=== PATIENT | female | born 1960 | race Caucasian/White ===

== ENCOUNTER 2016-07-20 14:29 | Outpatient (CLI) | payer MEDICAID | END 2016-07-20 14:30 | disposition home or self-care (01) | DX: E87.6 Hypokalemia (principal); R60.9 Edema, unspecified; D53.9 Nutritional anemia, unspecified ==

== ENCOUNTER 2017-05-13 00:58 | Emergency (ER) | payer MEDICAID ==
[2017-05-13 01:09] VITALS: BP 160/104
[2017-05-13] MEDS ORDERED: LIDOCAINE VISCOUS 2% 15 ML UDC MM ONE (01:35)
[2017-05-13] MEDS ORDERED: NEOMYCIN/POLYMYX/HC OTIC DROPS RIGHTEAR STA (01:37)
--- NOTE | 2017-05-13 01:48 | ED Physician Documentation ---
PD HPI HEENT - Stated complaint Stated Complaint: RT EAR PAIN - Chief complaint Chief Complaint: Heent - History obtained from History obtained from: Patient - History of Present Illness Timing - onset: How many days ago (3) Timing - duration: Days (3) Timing - details: Gradual onset, Still present Location: Right ear Improves: Medication Worsens: Swalllowing, Position, Other (touch of the ear) Associated symptoms: Headache. No: Fever, Congestion, Rhinorrhea, Trismus, Cough Similar symptoms before: Diagnosis (OE) Recently seen: Not recently seen - Additional information Additional information: 57-year-old female with a lifelong history of swimmer's ear usually has used a regimen of white vinegar and alcohol in her ears after showering. She has moved in here with her parents in [place] and she has stopped using her regimen about 6 weeks ago. Over the past 3 days she has developed symptoms consistent with what she has had previously with swimmer's ear she has tenderness to palpation of the year and pain. The pain has become untied intolerable tonight and she is come to the emergency department. Review of Systems Constitutional: denies: Fever Eyes: denies: Decreased vision Ears: reports: Ear pain. denies: Loss of hearing, Drainage/discharge, Tinnitus/ ringing Nose: denies: Rhinorrhea / runny nose, Congestion Throat: denies: Sore throat Respiratory: denies: Cough PD PAST MEDICAL HISTORY - Present Medications Home Medications: Ambulatory Orders Medication Instructions Recorded Confirmed Gabapentin 300 mg PO TID 05/13/17 05/13/17 Neomycin/Polymyx/Hc Otic Drops 4 drops RIGHTEAR TID #1 bottle 05/13/17 [Cortisporin Ear Susp] Venlafaxine HCl [Effexor Xr] 150 mg PO DAILY 05/13/17 05/13/17 - Allergies Allergies/Adverse Reactions: Allergies Allergy/AdvReac Type Severity Reaction Status Date / Time pregabalin [From Lyrica] Allergy Hives Verified 05/13/17 01:09 adhesive tape AdvReac Rash Verified 05/13/17 01:09 Sulfa (Sulfonamide AdvReac Itching Verified 05/13/17 01:09 Antibiotics) PD ED PE NORMAL - Vitals Vital signs reviewed: Yes (Tachycardic and hypertensive) - General General: Alert and oriented X 3, No acute distress, Well developed/nourished - HEENT HEENT: Atraumatic, PERRL, EOMI, Moist mucous membranes, Pharynx benign, Dentition benign, Other (There is minimal inflammation in the posterior portion of the right ear canal near the exit. There is no inflammation deeper in the canal and the TM is without evidence of inflammation. There is no debris in the canal. The left canal is clear.) - Neck Neck: Supple, no meningeal sign, No bony TTP - Cardiac Cardiac: RRR, No murmur - Respiratory Respiratory: No respiratory distress, Clear bilaterally - Abdomen Abdomen: Soft, Non tender - Derm Derm: Normal color, Warm and dry, No rash - Extremities Extremities: No deformity, No edema - Neuro Neuro: Alert and oriented X 3, No motor deficit, No sensory deficit, Normal speech Eye Opening: Spontaneous Motor: Obeys Commands Verbal: Oriented GCS Score: 15 - Psych Psych: Normal mood, Normal affect Results - Vitals Vitals: Vital Signs - 24 hr 05/13/17 01:04 Temperature 36.6 C Heart Rate 106 H Respiratory 20 Rate Blood Pressure 160/104 H O2 Saturation 99 Oxygen O2 Source Room air PD MEDICAL DECISION MAKING - ED course Complexity details: considered differential, d/w patient ED course: 57-year-old female with a history of otitis externa has developed symptoms she does have a small area that does appear inflamed and I was concerned that she may have referred pain from somewhere else and I used viscous lidocaine on a Q- tip over the inflamed area which resolved the patient's pain. She subsequently was administered Cortisporin otic. Departure - Departure Disposition: 01 Home, Self Care Clinical Impression: Otitis externa of right ear Qualifiers: Otitis externa type: swimmer's ear Chronicity: acute Qualified Code(s): H60.331 - Swimmer's ear, right ear Instructions: ED Otitis Externa Follow-Up: Bri Galvan ARNP [Primary Care Provider] - Prescriptions: Neomycin/Polymyx/Hc Otic Drops [Cortisporin Ear Susp] 4 drops RIGHTEAR TID #1 bottle Comments: Today in the Emergency Department your blood pressure was elevated. This can happen from the stress of the visit itself, from a current illness or circumstance or from uncontrolled hypertension. If you take blood pressure medications take your usual mediations, have your blood pressure re-checked in an appropriate setting and follow up any elevation with your primary care doctor.
[2017-05-13] MEDS ORDERED: NEOMYCIN/POLYMYX/HC OTIC DROPS ONE (02:02)
== END 2017-05-13 02:07 | disposition home or self-care (01) ==
LOC: ED 00:58
DX: H60.331 Swimmer's ear, right ear (principal); R03.0 Elevated blood-pressure reading, without diagnosis of hypertension
CPT/HCPCS: 99283; A9270

== ENCOUNTER 2018-03-06 22:38 | Emergency (ER) | payer MEDICAID ==
--- NOTE | 2018-03-06 23:57 | ED Physician Documentation ---
History of Present Illness - Stated complaint Stated Complaint: ETOH - Chief complaint Chief Complaint: General - History obtained from History obtained from: Patient - History of Present Illness Timing: Today Improved by: nothing Worsened by: no exacerbating factors - Additonal information Additional information: c/o alcohol withdrawal: tremulousness, anxiety. denies nausea. has been drinking vodka daily, last drink 2 PM, had DUI today. Review of Systems Constitutional: reports: Sweats. denies: Chills Cardiac: reports: Reviewed and negative Respiratory: reports: Reviewed and negative GI: reports: Reviewed and negative Neurologic: reports: Reviewed and negative Psychiatric: reports: Anxiety, Insomnia. 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 - Present Medications Home Medications: Ambulatory Orders Medication Instructions Recorded Confirmed Gabapentin 300 mg PO TID 05/13/17 05/13/17 Neomycin/Polymyx/Hc Otic Drops 4 drops RIGHTEAR TID #1 bottle 05/13/17 [Cortisporin Ear Susp] Venlafaxine HCl [Effexor Xr] 150 mg PO DAILY 05/13/17 05/13/17 LORazepam [Lorazepam] 1 - 2 mg PO Q6HR PRN #20 tablet 03/07/18 Ondansetron Odt [Zofran Odt] 4 mg TL Q6H PRN #14 tablet 03/07/18 - Allergies Allergies/Adverse Reactions: Allergies Allergy/AdvReac Type Severity Reaction Status Date / Time pregabalin [From Lyrica] Allergy Hives Verified 03/06/18 22:57 adhesive tape AdvReac Rash Verified 03/06/18 22:57 Sulfa (Sulfonamide AdvReac Itching Verified 03/06/18 22:57 Antibiotics) - Social History Does the pt smoke?: No Smoking Status: Never smoker ETOH Use: Liquor Does the pt have substance abuse?: No - POLST Patient has POLST: No PD ED PE NORMAL - Vitals Vital signs reviewed: Yes - General General: Alert and oriented X 3, Well developed/nourished, Other (mild generaliz ed tremulousness, mild anxiety) - HEENT HEENT: Moist mucous membranes - Neck Neck: Supple, no meningeal sign - Cardiac Cardiac: RRR, No murmur - Respiratory Respiratory: No respiratory distress, Clear bilaterally - Abdomen Abdomen: Soft, Non tender - Derm Derm: Normal color, Warm and dry - Neuro Neuro: Alert and oriented X 3 Results - Vitals Vitals: Vital Signs - 24 hr 03/07/18 01:28 Temperature 36.4 C L Heart Rate 94 Respiratory 18 Rate Blood Pressure 130/83 H O2 Saturation 98 Oxygen O2 Source Room air PD MEDICAL DECISION MAKING - ED course Complexity details: re-evaluated patient, considered differential, d/w patient ED course: I offered SW consult in AM to discuss options for detox, but patient declines this. She requests medication to help her with her withdrawal and rx for same, and she says she has information on who to contact to get into a detox/rehab facility. given IM ativan in ED and this had good effect: on reevaluation, no tremulousness, appears calm, and requests discharge home. she expresses what sounds like a sincere desire to seek professional help getting detox and rehab. I encouraged her to return to ED if worse in any way - Sepsis Event Vital Signs: Vital Signs - 24 hr 03/07/18 01:28 Temperature 36.4 C L Heart Rate 94 Respiratory 18 Rate Blood Pressure 130/83 H O2 Saturation 98 Oxygen O2 Source Room air Departure - Departure Disposition: 01 Home, Self Care Clinical Impression: Alcohol withdrawal Condition: Good Instructions: ED Withdrawal Alcohol Follow-Up: DARLEEN FRY [Primary Care Provider] - Prescriptions: LORazepam [Lorazepam] 1 - 2 mg PO Q6HR PRN #20 tablet PRN Reason: Alcohol Withdrawal Ondansetron Odt [Zofran Odt] 4 mg TL Q6H PRN #14 tablet PRN Reason: Nausea / Vomiting Discharge Date/Time: 03/07/18 01:30
[2018-03-07] MEDS ORDERED: LORazepam 2 MG/ML VIAL IM STA (00:29)
[2018-03-07] MEDS ORDERED: LORazepam 0.5 MG TABLET PO STA (01:20)
[2018-03-07 01:29] VITALS: BP 130/83
== END 2018-03-07 01:30 | disposition home or self-care (01) ==
LOC: ED 22:38
DX: F10.239 Alcohol dependence with withdrawal, unspecified (principal)
CPT/HCPCS: 96372; 99283; A9270; J2060

== ENCOUNTER 2018-03-10 18:28 | Outpatient (CLI) | payer MEDICAID | END 2018-03-10 18:29 | disposition critical access hospital (66) | LOC: EMS 18:28 | PROVIDERS: ATTEND Surgery | DX: S40.022A Contusion of left upper arm, initial encounter (principal); S40.021A Contusion of right upper arm, initial encounter; S80.12XA Contusion of left lower leg, initial encounter; S80.11XA Contusion of right lower leg, initial encounter; X58.XXXA Exposure to other specified factors, initial encounter | CPT/HCPCS: A0425; A0429; A0999 ==

== ENCOUNTER 2018-03-10 18:32 | Emergency (ER) | payer MEDICAID ==
[2018-03-10 18:58] VITALS: BP 139/87
[2018-03-10] MEDS ORDERED: cefTRIAXone 250 MG VIAL IM ONE (19:03)
[2018-03-10] MEDS ORDERED: LIDOCAINE 1% 2 ML VIAL SUBQ ONE (19:03)
[2018-03-10] MEDS ORDERED: AZITHROMYCIN 250 MG TABLET PO STA (19:03)
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
[2018-03-10 19:33] LABS: BASOPHILS % (AUTO) 0.9 %; EOSINOPHILS # (AUTO) 0.1 10^3/uL (0.0-0.7); EOSINOPHILS % (AUTO) 1.6 %; HGB - HEMOGLOBIN 13.7 g/dL (12.0-16.0); LYMPHOCYTES # (AUTO) 1.5 10^3/uL (1.5-3.5); LYMPHOCYTES % (AUTO) 45.9 %; MEAN CORPUSCULAR HEMOGLOBIN 35.4 pg (27.0-31.0); MEAN CORPUSCULAR HGB CONC 34.1 g/dL (32.0-36.0); MEAN CORPUSCULAR VOLUME 103.9 fL (81.0-99.0); MEAN PLATELET VOLUME 7.1 fL (7.9-10.8); MONOCYTES # (AUTO) 0.3 10^3/uL (0.0-1.0); MONOCYTES % (AUTO) 10.5 %; NEUTROPHILS # (AUTO) 1.4 10^3/uL (1.5-6.6); NEUTROPHILS % (AUTO) 41.1 %; PLT - PLATELET COUNT 144 10^3/uL (130-450); RED BLOOD COUNT 3.87 10^6/uL (4.20-5.40); RED CELL DISTRIBUTION WIDTH 16.2 % (12.0-15.0); WHITE BLOOD COUNT 3.3 x10^3/uL (4.8-10.8)
[2018-03-10 19:41] LABS: INR 0.9 (0.8-1.2); PT - PROTHROMBIN TIME 10.7 secs (9.9-12.6)
[2018-03-10 19:45] LABS: ALBUMIN 4.6 g/dL (3.2-5.5); ALBUMIN/GLOBULIN RATIO 1.5 (1.0-2.2); ALKALINE PHOSPHATASE 134 IU/L (42-121); ALT ALANINE AMINOTRANSFERASE 100 IU/L (10-60); AST ASPARTATE AMINOTRANSFERASE 119 IU/L (10-42); BILIRUBIN,TOTAL 0.9 mg/dL (0.2-1.0); BUN - BLOOD UREA NITROGEN 14 mg/dL (6-20); CALCIUM 9.2 mg/dL (8.5-10.3); CARBON DIOXIDE - CO2 31 mmol/L (21-32); CHLORIDE 108 mmol/L (101-111); CREATININE 0.5 mg/dL (0.4-1.0); GFR - MDRD 128 (>89); GLUCOSE 109 mg/dL (70-100); LIPASE 36 U/L (22-51); SALICYLATE < 6.0 mg/dL; SODIUM 148 mmol/L (135-145); TOTAL PROTEIN 7.7 g/dL (6.7-8.2)
[2018-03-10 19:55] LABS: ACETAMINOPHEN < 10 ug/mL (10-30)
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
[2018-03-11 13:27] LABS: HEPATITIS A IGM NON-REACTIVE (NON-REACTIVE); HEPATITIS B CORE ANTIBODY IGM NON-REACTIVE (NON-REACTIVE); HEPATITIS B SURFACE ANTIGEN NON-REACTIVE (NON-REACTIVE); HEPATITIS C ANTIBODY NON-REACTIVE (NON-REACTIVE)
[2018-03-11 14:22] LABS: HIV AG/AB 4TH GEN NON-REACTIVE (NON-REACTIVE)
== END 2018-03-11 00:03 | disposition home or self-care (01) ==
LOC: EDUNIT# → EDBD → ED 18:32
DX: F10.129 Alcohol abuse with intoxication, unspecified (principal); Y90.8 Blood alcohol level of 240 mg/100 ml or more; T76.21XA Adult sexual abuse, suspected, initial encounter; S40.022A Contusion of left upper arm, initial encounter; S40.021A Contusion of right upper arm, initial encounter; S80.12XA Contusion of left lower leg, initial encounter; S80.11XA Contusion of right lower leg, initial encounter; Y33.XXXA Other specified events, undetermined intent, initial encounter
CPT/HCPCS: 0133C; 36415; 70450; 72125; 80053; 80074; 80307; 80320; 80329; 83690; 85025; 85610; 87389; 96372; 99282; A9270

== ENCOUNTER 2018-03-20 14:56 | Emergency (ER) | payer MEDICAID ==
--- NOTE | 2018-03-20 16:11 | ED Physician Documentation ---
PD HPI MHE - Stated complaint Stated Complaint: MED REFILL - Chief complaint Chief Complaint: General - History obtained from History obtained from: Patient - History of Present Illness Primary symptom: Anxiety, Other (alcohol withdrawal - had some Ativan from prior Rx for couple of days, but out of med and still with withdrawal symptoms, now 3 days after stopping alcohol. Requesting more Rx. Has AA sponsor and has info regarding detox program.) Timing - onset: How many days ago (3) Contributing factors: Substance abuse - ETOH (and stopped drinking 3 days ago) Similar symptoms before: Diagnosis (withdrawal) Review of Systems Constitutional: denies: Fever, Chills, Myalgias Throat: denies: Sore throat Cardiac: denies: Chest pain / pressure Respiratory: denies: Dyspnea, Cough GI: reports: Nausea, Diarrhea. denies: Abdominal Pain, Vomiting Neurologic: reports: Generalized weakness. denies: Focal weakness, Numbness, Seizure, Confused, Altered mental status Psychiatric: reports: Anxiety. 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 - Present Medications Home Medications: Ambulatory Orders Medication Instructions Recorded Confirmed Gabapentin 300 mg PO TID 05/13/17 05/13/17 Neomycin/Polymyx/Hc Otic Drops 4 drops RIGHTEAR TID #1 bottle 05/13/17 [Cortisporin Ear Susp] Venlafaxine HCl [Effexor Xr] 150 mg PO DAILY 05/13/17 05/13/17 LORazepam [Lorazepam] 1 - 2 mg PO Q6HR PRN #20 tablet 03/07/18 Ondansetron Odt [Zofran Odt] 4 mg TL Q6H PRN #14 tablet 03/07/18 chlordiazePOXIDE [Librium] 25 mg PO TID PRN #25 capsule 03/20/18 cloNIDine [Catapres] 0.1 mg PO BID #14 tablet 03/20/18 - Allergies Allergies/Adverse Reactions: Allergies Allergy/AdvReac Type Severity Reaction Status Date / Time pregabalin [From Lyrica] Allergy Hives Verified 03/20/18 15:12 adhesive tape AdvReac Rash Verified 03/20/18 15:12 Sulfa (Sulfonamide AdvReac Itching Verified 03/20/18 15:12 Antibiotics) - Social History Does the pt smoke?: No Smoking Status: Never smoker Does the pt have substance abuse?: No - POLST Patient has POLST: No PD ED PE NORMAL - Vitals Vital signs reviewed: Yes - General General: Alert and oriented X 3, No acute distress, Well developed/nourished, Other (shakiness but pleasant) - HEENT HEENT: Moist mucous membranes, Pharynx benign - Neck Neck: Supple, no meningeal sign, No adenopathy - Cardiac Cardiac: RRR (tachycardic but minimal hypertension), No murmur - Respiratory Respiratory: Clear bilaterally - Abdomen Abdomen: Soft, Non tender - Derm Derm: Normal color, Warm and dry - Neuro Neuro: Alert and oriented X 3, No motor deficit, Normal speech, Other (some general shakiness and tremor with activity and at rest. ) Results - Vitals Vitals: Oxygen O2 Source Room air PD MEDICAL DECISION MAKING - ED course Complexity details: reviewed old records, considered differential (has shakiness from withdrawal. Had some Ativan but ran out and is still having some symptoms. ), d/w patient Departure - Departure Disposition: 01 Home, Self Care Clinical Impression: Alcohol withdrawal Qualifiers: Complication of substance-induced condition: uncomplicated Qualified Code(s): F10.230 - Alcohol dependence with withdrawal, uncomplicated Condition: Stable Record reviewed to determine appropriate education?: Yes Instructions: ED Withdrawal Alcohol Follow-Up: DARLEEN FRY [Primary Care Provider] - Prescriptions: chlordiazePOXIDE [Librium] 25 mg PO TID PRN #25 capsule PRN Reason: Anxiety cloNIDine [Catapres] 0.1 mg PO BID #14 tablet Comments: Use a Librium 3 times a day as needed for withdrawal symptoms. Clonidine twice daily for a week to help with the symptoms as well and less shakiness. Continue the Zofran if needed for nausea. Follow-up with your primary care you could also follow-up with [facility] services in [place] as they do help with substance abuse treatments as well. Discharge Date/Time: 03/20/18 16:52
[2018-03-20] MEDS ORDERED: LORazepam 0.5 MG TABLET PO STA (16:39)
[2018-03-20] MEDS ORDERED: cloNIDine 0.1 MG TABLET PO STA (16:39)
[2018-03-20 16:54] VITALS: BP 130/90
== END 2018-03-20 16:52 | disposition home or self-care (01) ==
LOC: ED 14:56
DX: F10.230 Alcohol dependence with withdrawal, uncomplicated (principal); E78.00 Pure hypercholesterolemia, unspecified
CPT/HCPCS: 99283; A9270

== ENCOUNTER 2018-04-07 04:28 | Outpatient (CLI) | payer MEDICAID | END 2018-04-07 04:29 | disposition critical access hospital (66) | LOC: EMS 04:28 | PROVIDERS: ATTEND Surgery | DX: R46.4 Slowness and poor responsiveness (principal); R47.81 Slurred speech; Z72.89 Other problems related to lifestyle | CPT/HCPCS: A0425; A0429; A0999 ==

== ENCOUNTER 2018-04-07 04:35 | Emergency (ER) | payer MEDICAID, OTHER ==
--- NOTE | 2018-04-07 04:48 | ED Physician Documentation ---
History of Present Illness - Stated complaint Stated Complaint: ETOH WITHDRAWL - Chief complaint Chief Complaint: General - History obtained from History obtained from: Patient - History of Present Illness Pain level now: 8 Improved by: nothing Worsened by: no exacerbating factors - Additonal information Additional information: BIBA. Patient says she has been drinking heavily including tonight, says she wants help quitting drinking. She also says she is worried about withdrawal and seizures. This is her fourth [facility] ED visit in past month, the third visit for alcohol- related c/o. She has been provided prescriptions for benzodiazepines on previous visits but says she is out of these at this time. 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 - Present Medications Home Medications: Ambulatory Orders Medication Instructions Recorded Confirmed Gabapentin 300 mg PO TID 05/13/17 05/13/17 Neomycin/Polymyx/Hc Otic Drops 4 drops RIGHTEAR TID #1 bottle 05/13/17 [Cortisporin Ear Susp] Venlafaxine HCl [Effexor Xr] 150 mg PO DAILY 05/13/17 05/13/17 LORazepam [Lorazepam] 1 - 2 mg PO Q6HR PRN #20 tablet 03/07/18 Ondansetron Odt [Zofran Odt] 4 mg TL Q6H PRN #14 tablet 03/07/18 chlordiazePOXIDE [Librium] 25 mg PO TID PRN #25 capsule 03/20/18 Ondansetron HCl [Zofran] 4 mg PO Q6H PRN #20 tablet 04/07/18 chlordiazePOXIDE [Librium] 25 - 50 mg PO Q8H PRN #30 capsule 04/07/18 cloNIDine [Catapres] 0.1 mg PO BID #14 tablet 04/07/18 - Allergies Allergies/Adverse Reactions: Allergies Allergy/AdvReac Type Severity Reaction Status Date / Time pregabalin [From Lyrica] Allergy Hives Verified 04/07/18 04:41 adhesive tape AdvReac Rash Verified 04/07/18 04:41 Sulfa (Sulfonamide AdvReac Itching Verified 04/07/18 04:41 Antibiotics) - Social History Does the pt smoke?: No Smoking Status: Never smoker Does the pt have substance abuse?: No - POLST Patient has POLST: No PD ED PE NORMAL - Vitals Vital signs reviewed: Yes - General General: Alert and oriented X 3, No acute distress, Well developed/nourished, Other (slurred but intelligible speech) - HEENT HEENT: Atraumatic, PERRL, EOMI, Moist mucous membranes - Cardiac Cardiac: RRR, No murmur - Respiratory Respiratory: No respiratory distress, Clear bilaterally - Abdomen Abdomen: Soft, Non tender - Derm Derm: Normal color, Warm and dry - Neuro Neuro: Alert and oriented X 3, insurance auditor 2-12 intact, No motor deficit, No sensory deficit Eye Opening: Spontaneous Motor: Obeys Commands Verbal: Oriented GCS Score: 15 Results - Vitals Vitals: Vital Signs - 24 hr 04/07/18 04/07/18 04:37 09:45 Temperature 36.0 C L Heart Rate 79 86 Respiratory 20 18 Rate Blood Pressure 133/90 H 136/90 H O2 Saturation 99 96 Oxygen O2 Source Room air - Labs Labs: Laboratory Tests 04/07/18 04/07/18 04:54 04:54 WBC 3.8 L RBC 3.64 L Hgb 12.9 Hct 38.1 MCV 104.7 H MCH 35.5 H MCHC 33.9 RDW 15.3 H Plt Count 220 MPV 6.7 L Neut # (Auto) 0.9 L Lymph # (Auto) 2.5 [place] # (Auto) 0.3 Eos # (Auto) 0.1 Baso # (Auto) 0.0 Absolute Nucleated RBC 0.00 Nucleated RBC % 0.0 Sodium 146 H Potassium 3.4 L Chloride 105 Carbon Dioxide 30 Anion Gap 11.0 BUN 14 Creatinine 0.5 Estimated GFR (MDRD) 128 Glucose 96 Calcium 8.9 Total Bilirubin 0.3 AST 35 ALT 26 Alkaline Phosphatase 119 Total Protein 6.8 Albumin 4.2 Globulin 2.6 Albumin/Globulin Ratio 1.6 Lipase 38 Ethyl Alcohol 401.2 PD MEDICAL DECISION MAKING - ED course Complexity details: reviewed old records, reviewed results, re-evaluated patient, considered differential, d/w patient ED course: I discussed my recommendations with patient, which is to perform blood tests and have a transition social worker meet with her later this morning to discuss options for rehab/detox. She initially was agreeable with this. However, she became increasingly upset with myself and other ED staff for what she expressed as a perception that "nothing is being done for me". I went over the plan to have a transition social worker meet with her when they come in this morning to discuss options for treatment with her, but she continued to tell me that she felt she wasn't being treated appropriately; she repeatedly requested medication to "help with the shaking". At no time did I see any tremulousness. At 6:30 AM, she had ambulated out of her room and into the hallway outside of the ED. I was informed she wanted to leave. I talked to her, at length, in the hallway; I again reviewed with her that I recommend a social work consult, but that I do not have cause to hold her here against her will. She eventually returned to ED and went back to her room. Care of patient turned over to oncoming ED physician (Dr. Muñiz) at 7 AM, pending SW evaluation Departure - Departure Disposition: 01 Home, Self Care Clinical Impression: Alcohol intoxication, Desire for detoxification Condition: Stable Instructions: ED Withdrawal Alcohol, ED Alcohol Intoxication Follow-Up: [facility] [Provider Group] DARLEEN FRY [Primary Care Provider] - Prescriptions: chlordiazePOXIDE [Librium] 25 - 50 mg PO Q8H PRN #30 capsule PRN Reason: Anxiety cloNIDine [Catapres] 0.1 mg PO BID #14 tablet Ondansetron HCl [Zofran] 4 mg PO Q6H PRN #20 tablet PRN Reason: Nausea / Vomiting Comments: No alcohol. Use meds for withdrawal as needed. Drink lots of fluids and regular diet. Follow up [facility] regarding counseling. Seek AA meetings and help. Return to ER if needed. Discharge Date/Time: 04/07/18 09:45
[2018-04-07 04:57] LABS: EOSINOPHILS # (AUTO) 0.1 10^3/uL (0.0-0.7); EOSINOPHILS % (AUTO) 2.5 %; HGB - HEMOGLOBIN 12.9 g/dL (12.0-16.0); LYMPHOCYTES # (AUTO) 2.5 10^3/uL (1.5-3.5); LYMPHOCYTES % (AUTO) 64.4 %; MEAN CORPUSCULAR HEMOGLOBIN 35.5 pg (27.0-31.0); MEAN CORPUSCULAR HGB CONC 33.9 g/dL (32.0-36.0); MEAN CORPUSCULAR VOLUME 104.7 fL (81.0-99.0); MEAN PLATELET VOLUME 6.7 fL (7.9-10.8); MONOCYTES # (AUTO) 0.3 10^3/uL (0.0-1.0); MONOCYTES % (AUTO) 7.8 %; NEUTROPHILS # (AUTO) 0.9 10^3/uL (1.5-6.6); NEUTROPHILS % (AUTO) 24.3 %; PLT - PLATELET COUNT 220 10^3/uL (130-450); RED BLOOD COUNT 3.64 10^6/uL (4.20-5.40); RED CELL DISTRIBUTION WIDTH 15.3 % (12.0-15.0); WHITE BLOOD COUNT 3.8 x10^3/uL (4.8-10.8)
[2018-04-07 05:10] LABS: ALBUMIN 4.2 g/dL (3.2-5.5); ALBUMIN/GLOBULIN RATIO 1.6 (1.0-2.2); BILIRUBIN,TOTAL 0.3 mg/dL (0.2-1.0); CALCIUM 8.9 mg/dL (8.5-10.3); CREATININE 0.5 mg/dL (0.4-1.0); TOTAL PROTEIN 6.8 g/dL (6.7-8.2)
[2018-04-07] MEDS ORDERED: NICOTINE 21 MG PATCH TOP STA (06:56)
[2018-04-07] MEDS ORDERED: cloNIDine 0.1 MG TABLET PO STA (09:10)
[2018-04-07] MEDS ORDERED: LORazepam 0.5 MG TABLET PO STA (09:10)
[2018-04-07 10:56] VITALS: BP 136/90
== END 2018-04-07 09:45 | disposition home or self-care (01) ==
LOC: EDUNIT# → ED 04:35
DX: F10.129 Alcohol abuse with intoxication, unspecified (principal)
CPT/HCPCS: 80053; 80320; 83690; 85025; 99283; A9270

== ENCOUNTER 2018-04-28 18:21 | Outpatient (CLI) | payer MEDICAID | END 2018-04-28 18:22 | disposition critical access hospital (66) | LOC: EMS 18:21 | PROVIDERS: ATTEND Surgery | DX: H53.9 Unspecified visual disturbance (principal); R51 Headache ==

== ENCOUNTER 2018-04-28 18:25 | Emergency (ER) | payer MEDICAID ==
--- NOTE | 2018-04-28 18:34 | ED Physician Documentation ---
PD HPI ALTERED MENTAL STATUS - Stated complaint Stated Complaint: AMS - Chief complaint Chief Complaint: Neuro - History obtained from History obtained from: Patient, EMS - History of Present Illness Timing - onset: Today (This is a 57-year-old woman with history of alcohol abuse. She is a vague historian and obviously intoxicated. She says she had her had a couple of days ago but does not know if she lost consciousness. She is evasive about questions about how much she drank today. She went to the grocery store to buy alcohol and they told her she could not buy alcohol because she was intoxicated. She proceeded to sit down and complain about visual deficits. 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 - Present Medications Home Medications: Ambulatory Orders Medication Instructions Recorded Confirmed Gabapentin 300 mg PO TID 05/13/17 05/13/17 Neomycin/Polymyx/Hc Otic Drops 4 drops RIGHTEAR TID #1 bottle 05/13/17 [Cortisporin Ear Susp] Venlafaxine HCl [Effexor Xr] 150 mg PO DAILY 05/13/17 05/13/17 LORazepam [Lorazepam] 1 - 2 mg PO Q6HR PRN #20 tablet 03/07/18 Ondansetron Odt [Zofran Odt] 4 mg TL Q6H PRN #14 tablet 03/07/18 chlordiazePOXIDE [Librium] 25 mg PO TID PRN #25 capsule 03/20/18 Ondansetron HCl [Zofran] 4 mg PO Q6H PRN #20 tablet 04/07/18 chlordiazePOXIDE [Librium] 25 - 50 mg PO Q8H PRN #30 capsule 04/07/18 cloNIDine [Catapres] 0.1 mg PO BID #14 tablet 04/07/18 - Allergies Allergies/Adverse Reactions: Allergies Allergy/AdvReac Type Severity Reaction Status Date / Time pregabalin [From Lyrica] Allergy Hives Verified 04/07/18 04:41 adhesive tape AdvReac Rash Verified 04/07/18 04:41 Sulfa (Sulfonamide AdvReac Itching Verified 04/07/18 04:41 Antibiotics) - Social History Does the pt smoke?: No Smoking Status: Never smoker Does the pt have substance abuse?: No - POLST Patient has POLST: No PD ED PE NORMAL - Vitals Vital signs reviewed: Yes - General General: Other (She is alert oriented to person and place but not time. She is an evasive historian.) - HEENT HEENT: Other (She has a lot of nystagmus, midpoint minimally reactive pupils bilaterally. Vision is grossly intact.) - Neck Neck: Supple, no meningeal sign, No bony TTP - Cardiac Cardiac: RRR, No murmur - Respiratory Respiratory: No respiratory distress, Clear bilaterally - Abdomen Abdomen: Normal bowel sounds, Soft, Non tender - Neuro Neuro: steel loader 2-12 intact Eye Opening: Spontaneous Motor: Obeys Commands Verbal: Confused GCS Score: 14 Results - Vitals Vitals: Vital Signs - 24 hr 04/28/18 18:28 Temperature 38.0 C H Heart Rate 88 Respiratory 18 Rate Blood Pressure 145/92 H O2 Saturation 97 Oxygen O2 Source Room air - Labs Labs: Laboratory Tests 04/28/18 04/28/18 04/28/18 18:30 18:30 18:30 WBC 3.4 L RBC 4.08 L Hgb 14.3 Hct 43.7 MCV 107.0 H MCH 35.0 H MCHC 32.7 RDW 14.5 Plt Count 191 MPV 7.2 L Neut # (Auto) Not Reportable Lymph # (Auto) Not Reportable [place] # (Auto) Not Reportable Eos # (Auto) Not Reportable Baso # (Auto) Not Reportable Absolute Nucleated RBC Not Reportable Total Counted 100 Band Neuts % (Manual) 0 Abnorm Lymph % (Manual) 0 Nucleated RBC % Not Reportable Neutrophils # (Manual) 0.9 L Lymphocytes # (Manual) 2.3 Monocytes # (Manual) 0.2 Eosinophils # (Manual) 0.0 Basophils # (Manual) 0.0 Differential Comment MANUAL DIFFERENTIAL Manual Slide Review Indicated WBC Morphology NORMAL APPEARANCE Platelet Estimate NORMAL (130-450,000) Platelet Morphology NORMAL APPEARANCE RBC Morph Micro Appear 2+ MACROCYTOSIS PT 11.6 INR 1.0 Sodium 147 H Potassium 3.6 Chloride 105 Carbon Dioxide 31 Anion Gap 11.0 BUN 10 Creatinine 0.6 Estimated GFR (MDRD) 104 Glucose 91 Calcium 8.5 Total Bilirubin 0.6 AST 124 H ALT 54 Alkaline Phosphatase 143 H Total Protein 7.1 Albumin 4.5 Globulin 2.6 Albumin/Globulin Ratio 1.7 Lipase 32 Ethyl Alcohol 378.1 - Rads (name of study) CT Head and Cspine Radiology: EMP read contemporaneously (NAD, Some prominent volume loss for age and degenerative changes in the C-spine without fracture) PD MEDICAL DECISION MAKING - ED course ED course: 57-year-old woman presents with a 2-day-old head injury and altered mental status likely from alcohol intoxication. CTs of head and C-spine showed no acute disease. Blood alcohol was significantly escalated. She expressed a desire initially to go to rehab. I discussed with her that she was welcome to stay in the emergency department until social work arrived in the morning, she did not want to do that. I discussed with her that I am unable to discharge her at this point because her blood alcohol is too high for safe discharge and she proceeded to ambulate out of the department. Departure - Departure Disposition: ED Elope Clinical Impression: Alcohol intoxication Qualifiers: Complication of substance-induced condition: uncomplicated Qualified Code(s): F10.920 - Alcohol use, unspecified with intoxication, uncomplicated Head injury Qualifiers: Encounter type: initial encounter Qualified Code(s): S09.90XA - Unspecified injury of head, initial encounter
[2018-04-28 18:42] LABS: BASOPHILS % (AUTO) 0.6 %; HGB - HEMOGLOBIN 14.3 g/dL (12.0-16.0); LYMPHOCYTES % (AUTO) 67.3 %; MEAN CORPUSCULAR HGB CONC 32.7 g/dL (32.0-36.0); MEAN PLATELET VOLUME 7.2 fL (7.9-10.8); NEUTROPHILS % (AUTO) 26.1 %; PLT - PLATELET COUNT 191 10^3/uL (130-450); RED BLOOD COUNT 4.08 10^6/uL (4.20-5.40); RED CELL DISTRIBUTION WIDTH 14.5 % (12.0-15.0); WHITE BLOOD COUNT 3.4 x10^3/uL (4.8-10.8)
[2018-04-28 18:50] LABS: ABNORMAL LYMPHS % (MANUAL) 0 %; BAND NEUTROPHILS % (MANUAL) 0 %
[2018-04-28 18:54] LABS: PT - PROTHROMBIN TIME 11.6 secs (9.9-12.6)
[2018-04-28 18:59] LABS: ALBUMIN 4.5 g/dL (3.2-5.5); ALBUMIN/GLOBULIN RATIO 1.7 (1.0-2.2); BILIRUBIN,TOTAL 0.6 mg/dL (0.2-1.0); CALCIUM 8.5 mg/dL (8.5-10.3); CREATININE 0.6 mg/dL (0.4-1.0); TOTAL PROTEIN 7.1 g/dL (6.7-8.2)
[2018-04-28 19:07] LABS: DIFFERENTIAL COMMENT MANUAL DIFFERENTIAL; LYMPHOCYTES # (MANUAL) 2.3 10^3/uL (1.5-3.5); LYMPHOCYTES % (MANUAL) 69 %; MONOCYTES # (MANUAL) 0.2 10^3/uL (0.0-1.0); NEUTROPHILS # (MANUAL) 0.9 10^3/uL (1.5-6.6); NEUTROPHILS % (MANUAL) 25 %; PLATELET ESTIMATE, MANUAL NORMAL (130-450,000) (NORMAL); PLATELET MORPHOLOGY NORMAL APPEARANCE (NORMAL); RBC MORPHOLOGY (MULTIPLE) 2+ MACROCYTOSIS (NORMAL)
--- NOTE | 2018-04-28 19:17 | CT Report ---
Reason: head inj Procedure Date: 04/28/2018 Accession Number: [id number] / [id number] Procedure: CT - Head W/O CPT Code: FULL RESULT: EXAM: CT HEAD EXAM DATE: 04/28/2018 06:58 PM. CLINICAL HISTORY: Head inj. Patient fell 2 days ago with back of head pain and nausea since. COMPARISON: CERVICAL SPINE W/O 03/10/2018 7:44 PM HEAD W/O 03/10/2018 7:44 PM. TECHNIQUE: Multiaxial CT images were obtained from the foramen magnum to the vertex. Reformats: Sagittal and coronal. IV contrast: None. In accordance with CT protocol optimization, one or more of the following dose reduction techniques were utilized for this exam: automated exposure control, adjustment of mA and/or KV based on patient size, or use of iterative reconstructive technique. FINDINGS: Parenchyma: No intraparenchymal hemorrhage. No evidence of mass, midline shift, or CT findings of infarction. Herrera-white differentiation is distinct. Diffuse cortical volume loss. Extraaxial Spaces: Normal for age. No subdural or epidural collections identified. Ventricles: Normal in size and position. Sinuses and Orbits: Imaged paranasal sinuses, orbits, and mastoids show no significant abnormality. Bones: No evidence of fracture or calvarial defect. Other: None. IMPRESSION: 1. No evidence for intracranial hemorrhage or depressed calvarial fracture. 2. Diffuse cortical volume loss is greater than typical for patient's age. RADIA
--- NOTE | 2018-04-28 19:22 | CT Report ---
Reason: head inj Procedure Date: 04/28/2018 Accession Number: [id number] / [id number] Procedure: CT - Cervical Spine W/O CPT Code: FULL RESULT: EXAM: CT CERVICAL SPINE WITHOUT CONTRAST DATE: 04/28/2018 06:46 PM. HISTORY: Head injury. Fell 2 days ago with back of head pain. COMPARISONS: CERVICAL SPINE W/O 03/10/2018 7:44 PM. TECHNIQUE: Thin-section axial images were acquired of the cervical spine without contrast. Post-processing: Coronal and sagittal reformats. Other: None. In accordance with CT protocol optimization, one or more of the following dose reduction techniques were utilized for this exam: automated exposure control, adjustment of mA and/or KV based on patient size, or use of iterative reconstructive technique. FINDINGS: Alignment: Mild convex left cervical scoliosis. Mild grade 1 anterolisthesis of C7 on T1 vertebral body. Bones: No fracture or bone lesion. Interspace Levels/Facets: C1-C2: Unremarkable. C2-C3: Unremarkable. C3-C4: Mild bilateral uncovertebral joint and right facet hypertrophy with mild neuroforaminal narrowing. C4-C5: Severe left and moderate right-sided neural foraminal narrowing due to uncovertebral joint hypertrophy. C5-C6: Severe right and mild left neural foraminal narrowing from uncovertebral joint hypertrophy. C6-C7: Unremarkable. C7-T1: Bilateral facet hypertrophy. Musculature: Normal. No fatty atrophy. Other: The paravertebral and prevertebral soft tissues are unremarkable. The lung apices are clear. IMPRESSION: 1. Prominent cervical spine degenerative changes. 2. No fractures. RADIA
[2018-04-28 20:12] VITALS: BP 138/104
== END 2018-04-28 22:10 | disposition left against medical advice (07) ==
LOC: EDUNIT# → ED 18:25
DX: F10.920 Alcohol use, unspecified with intoxication, uncomplicated (principal); S09.90XA Unspecified injury of head, initial encounter; W19.XXXA Unspecified fall, initial encounter; Z53.20 Procedure and treatment not carried out because of patient's decision for unspecified reasons
CPT/HCPCS: 36415; 70450; 72125; 80053; 80320; 83690; 85025; 85610; 99283; 99284

== ENCOUNTER 2018-06-20 14:04 | Outpatient (CLI) | payer MEDICAID | END 2018-06-20 14:05 | disposition EMS.NT | LOC: EMS 14:04 | PROVIDERS: ATTEND Surgery | DX: Z03.89 Encounter for observation for other suspected diseases and conditions ruled out (principal) ==

== ENCOUNTER 2018-07-06 15:58 | Outpatient (CLI) | payer MEDICAID | END 2018-07-06 15:59 | disposition critical access hospital (66) | LOC: EMS 15:58 | PROVIDERS: ATTEND Surgery | DX: R53.83 Other fatigue (principal) | CPT/HCPCS: A0425; A0429 ==

== ENCOUNTER 2018-07-06 16:03 | Emergency (ER) | payer MEDICAID ==
[2018-07-06] MEDS ORDERED: THIAMINE 100 MG TABLET PO STA (16:36)
--- NOTE | 2018-07-06 16:36 | ED Physician Documentation ---
History of Present Illness - Stated complaint Stated Complaint: ALOC - Chief complaint Chief Complaint: MHE - History obtained from History obtained from: Patient, EMS - History of Present Illness Timing: Unknown (This is a 58-year-old woman who is a well-known alcoholic. Review of the chart shows the last 3 blood alcohol is been quite high. She called the ambulance today for unclear reasons. She tells me she is here because she is having problems with the right ear. She says she is been asleep for 3 days. She is worried that she might have cancer. She also hit her head at some point, I will him backwards and hit her head on the porch when the lights were out. 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 - Present Medications Home Medications: Ambulatory Orders Medication Instructions Recorded Confirmed Neomycin/Polymyx/Hc Otic Drops 4 drops RIGHTEAR TID #1 bottle 05/13/17 [Cortisporin Ear Susp] RX: Gabapentin 300 mg PO TID 05/13/17 05/13/17 Venlafaxine HCl [Effexor Xr] 150 mg PO DAILY 05/13/17 05/13/17 RX: LORazepam [Lorazepam] 1 - 2 mg PO Q6HR PRN #20 tablet 03/07/18 RX: Ondansetron Odt [Zofran Odt] 4 mg TL Q6H PRN #14 tablet 03/07/18 chlordiazePOXIDE [Librium] 25 mg PO TID PRN #25 capsule 03/20/18 Ondansetron HCl [Zofran] 4 mg PO Q6H PRN #20 tablet 04/07/18 RX: cloNIDine [Catapres] 0.1 mg PO BID #14 tablet 04/07/18 chlordiazePOXIDE [Librium] 25 - 50 mg PO Q8H PRN #30 capsule 04/07/18 - Allergies Allergies/Adverse Reactions: Allergies Allergy/AdvReac Type Severity Reaction Status Date / Time pregabalin [From Lyrica] Allergy Hives Verified 07/06/18 16:18 adhesive tape AdvReac Rash Verified 07/06/18 16:18 Sulfa (Sulfonamide AdvReac Itching Verified 07/06/18 16:18 Antibiotics) - Social History Does the pt smoke?: No Smoking Status: Never smoker Does the pt drink ETOH?: Yes Does the pt have substance abuse?: No - Immunizations Immunizations are current?: Yes - POLST Patient has POLST: No PD ED PE NORMAL - Vitals Vital signs reviewed: Yes - General General: Other (Slow slurred speech, smells of alcohol) - HEENT HEENT: Other (Sluggish dilated pupils, symmetric with lots of nystagmus) - Neck Neck: Supple, no meningeal sign, No bony TTP - Cardiac Cardiac: RRR, No murmur - Respiratory Respiratory: No respiratory distress, Clear bilaterally - Abdomen Abdomen: Normal bowel sounds, Soft, Non tender - Back Back: No CVA TTP, No spinal TTP - Derm Derm: Normal color, Warm and dry - Extremities Extremities: Other (Bruises all over but no tenderness or limited range of motion of any remedy.) - Neuro Neuro: 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 specialist 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 Eye Opening: Spontaneous Motor: Obeys Commands Verbal: Confused GCS Score: 14 - Psych Psych: Normal mood, Normal affect Results - Vitals Vitals: Vital Signs - 24 hr 07/06/18 07/06/18 16:04 18:17 Temperature 36.8 C 36.6 C Heart Rate 80 79 Respiratory 16 16 Rate Blood Pressure 145/90 H 134/81 H O2 Saturation 100 98 Oxygen O2 Source Room air - Labs Labs: Laboratory Tests 07/06/18 07/06/18 16:45 16:45 WBC 4.1 L RBC 3.73 L Hgb 13.1 Hct 39.1 MCV 105.0 H MCH 35.2 H MCHC 33.5 RDW 14.7 Plt Count 203 MPV 7.1 L Neut # (Auto) Not Reportable Lymph # (Auto) Not Reportable [place] # (Auto) Not Reportable Eos # (Auto) Not Reportable Baso # (Auto) Not Reportable Absolute Nucleated RBC Not Reportable Total Counted 100 Band Neuts % (Manual) 0 Abnorm Lymph % (Manual) 0 Nucleated RBC % Not Reportable Neutrophils # (Manual) 1.2 L Lymphocytes # (Manual) 2.7 Monocytes # (Manual) 0.1 Eosinophils # (Manual) 0.0 Basophils # (Manual) 0.0 Differential Comment MANUAL DIFFERENTIAL Manual Slide Review Indicated WBC Morphology NORMAL APPEARANCE Platelet Estimate NORMAL (130-450,000) Platelet Morphology NORMAL APPEARANCE RBC Morph Micro Appear 1+ MACROCYTOSIS Sodium 150 H Potassium 3.7 Chloride 108 Carbon Dioxide 30 Anion Gap 12.0 BUN 17 Creatinine 0.5 Estimated GFR (MDRD) 128 Glucose 80 Calcium 9.2 Total Bilirubin 0.4 AST 25 ALT 16 Alkaline Phosphatase 81 Total Creatine Kinase 88 Total Protein 7.0 Albumin 4.1 Globulin 2.9 Albumin/Globulin Ratio 1.4 Lipase 39 - Rads (name of study) CT Head and Cspine Radiology: EMP read contemporaneously (NAD) PD MEDICAL DECISION MAKING - ED course ED course: This is a 58-year-old woman with history of alcoholism who presents with alcohol intoxication. She is a vague history of head injury may be 3 days ago and because of the alcohol intoxication a CT of the head and C-spine were done witho ut relevant findings. She was allowed to sober up for a while in the emergency department and requested to leave. She was really too intoxicated to discharge still but eventually ambulated out of the emergency dept without being formally discharged. Departure - Departure Disposition: ED [facility]ope Clinical Impression: Alcohol intoxication, Head injury Condition: Stable Discharge Date/Time: 07/06/18 18:43
[2018-07-06 16:54] LABS: BASOPHILS % (AUTO) 0.7 %; EOSINOPHILS % (AUTO) 0.8 %; HGB - HEMOGLOBIN 13.1 g/dL (12.0-16.0); LYMPHOCYTES % (AUTO) 63.6 %; MEAN CORPUSCULAR HEMOGLOBIN 35.2 pg (27.0-31.0); MEAN CORPUSCULAR HGB CONC 33.5 g/dL (32.0-36.0); MEAN PLATELET VOLUME 7.1 fL (7.9-10.8); MONOCYTES % (AUTO) 4.6 %; NEUTROPHILS % (AUTO) 30.3 %; PLT - PLATELET COUNT 203 10^3/uL (130-450); RED BLOOD COUNT 3.73 10^6/uL (4.20-5.40); RED CELL DISTRIBUTION WIDTH 14.7 % (12.0-15.0); WHITE BLOOD COUNT 4.1 x10^3/uL (4.8-10.8)
[2018-07-06 16:57] LABS: ABNORMAL LYMPHS % (MANUAL) 0 %; BAND NEUTROPHILS % (MANUAL) 0 %
[2018-07-06 17:07] LABS: BASOPHILS % (MANUAL) 1 %; LYMPHOCYTES # (MANUAL) 2.7 10^3/uL (1.5-3.5); LYMPHOCYTES % (MANUAL) 66 %; MONOCYTES # (MANUAL) 0.1 10^3/uL (0.0-1.0); NEUTROPHILS # (MANUAL) 1.2 10^3/uL (1.5-6.6); NEUTROPHILS % (MANUAL) 30 %
[2018-07-06 17:08] LABS: DIFFERENTIAL COMMENT MANUAL DIFFERENTIAL; PLATELET ESTIMATE, MANUAL NORMAL (130-450,000) (NORMAL); PLATELET MORPHOLOGY NORMAL APPEARANCE (NORMAL); RBC MORPHOLOGY (MULTIPLE) 1+ MACROCYTOSIS (NORMAL)
[2018-07-06 17:24] LABS: ALBUMIN 4.1 g/dL (3.2-5.5); ALBUMIN/GLOBULIN RATIO 1.4 (1.0-2.2); BILIRUBIN,TOTAL 0.4 mg/dL (0.2-1.0); CALCIUM 9.2 mg/dL (8.5-10.3); CREATININE 0.5 mg/dL (0.4-1.0)
--- NOTE | 2018-07-06 17:26 | CT Report ---
Reason: head inj Procedure Date: 07/06/2018 Accession Number: [id number] / [id number] Procedure: CT - Head W/O CPT Code: FULL RESULT: EXAM: CT HEAD EXAM DATE: 07/06/2018 05:01 PM. CLINICAL HISTORY: Head inj. COMPARISON: None. TECHNIQUE: Multiaxial CT images were obtained from the foramen magnum to the vertex. Reformats: Sagittal and coronal. IV contrast: None. In accordance with CT protocol optimization, one or more of the following dose reduction techniques were utilized for this exam: automated exposure control, adjustment of mA and/or KV based on patient size, or use of iterative reconstructive technique. FINDINGS: Parenchyma: No intraparenchymal hemorrhage. No evidence of mass, midline shift, or CT findings of infarction. Herrera-white differentiation is distinct. Extraaxial Spaces: Normal for age. No subdural or epidural collections identified. Ventricles: Normal in size and position. Sinuses and Orbits: Imaged paranasal sinuses, orbits, and mastoids show no significant abnormality. Bones: No evidence of fracture or calvarial defect. Other: Soft tissue hematoma overlying the right of midline frontal skull with no underlying fracture. IMPRESSION: 1. No acute intracranial abnormality. 2. Soft tissue hematoma overlying the right frontal skull with no underlying fracture. RADIA
--- NOTE | 2018-07-06 17:30 | CT Report ---
Reason: head inj Procedure Date: 07/06/2018 Accession Number: [id number] / [id number] Procedure: CT - Cervical Spine W/O CPT Code: FULL RESULT: EXAM: CT CERVICAL SPINE WITHOUT CONTRAST DATE: 07/06/2018 05:01 PM. HISTORY: Head inj. COMPARISONS: None. TECHNIQUE: Thin-section axial images were acquired of the cervical spine without contrast. Post-processing: Coronal and sagittal reformats. Other: None. In accordance with CT protocol optimization, one or more of the following dose reduction techniques were utilized for this exam: automated exposure control, adjustment of mA and/or KV based on patient size, or use of iterative reconstructive technique. FINDINGS: Alignment: No scoliosis or spondylolisthesis. Bones: No fracture or bone lesion. Interspace Levels/Facets: C1-C2: Unremarkable. C2-C3: Unremarkable. C3-C4: Unremarkable. C4-C5: Moderate degenerative disk disease with severe left neural foraminal narrowing. C5-C6: Uncal hypertrophy with severe right neural foraminal narrowing. C6-C7: Unremarkable. C7-T1: Unremarkable. Musculature: Normal. No fatty atrophy. Other: The paravertebral and prevertebral soft tissues are unremarkable. The lung apices are clear. IMPRESSION: 1. No acute fracture or listhesis. 2. Degenerative changes, as above. RADIA
[2018-07-06 18:22] VITALS: BP 134/81
== END 2018-07-06 18:43 | disposition left against medical advice (07) ==
LOC: EDUNIT# → ED 16:03
DX: F10.220 Alcohol dependence with intoxication, uncomplicated (principal); S09.90XA Unspecified injury of head, initial encounter; W22.09XA Striking against other stationary object, initial encounter; E78.00 Pure hypercholesterolemia, unspecified
CPT/HCPCS: 36415; 70450; 72125; 80053; 82550; 83690; 85025; 99282; 99284; A9270

== ENCOUNTER 2018-07-23 14:19 | Outpatient (CLI) | payer MEDICAID ==
--- NOTE | 2018-07-23 16:05 | XRAY Report ---
Reason: PAIN, UNSPECIFIED Procedure Date: 07/23/2018 Accession Number: [id number] / [id number] Procedure: XR - Hand 3 View LT CPT Code: FULL RESULT: EXAM: LEFT HAND RADIOGRAPHY EXAM DATE: 07/23/2018 03:07 PM. CLINICAL HISTORY: PAIN, UNSPECIFIED. COMPARISON: None. TECHNIQUE: 3 views. FINDINGS: Bones: No fractures or bone lesions. Joints: Minimal early degenerative change of the interphalangeal joints of the fingers and thumb. No subluxations. Soft Tissues: No soft tissue swelling. IMPRESSION: Minimal early left hand degenerative change without superimposed acute findings. RADIA
--- NOTE | 2018-07-23 16:30 | XRAY Report ---
Reason: PAIN, UNSPECIFIED Procedure Date: 07/23/2018 Accession Number: [id number] / [id number] Procedure: XR - Foot 3 View LT CPT Code: FULL RESULT: EXAM: LEFT FOOT RADIOGRAPHY EXAM DATE: 07/23/2018 03:07 PM. CLINICAL HISTORY: PAIN, UNSPECIFIED. History of remote fracture. COMPARISON: None. TECHNIQUE: 3 views. FINDINGS: Bones: No acute fractures or bone lesions. Joints: The interphalangeal joints of the second through fifth toes are not well seen. Minor degenerative change first metatarsal phalangeal articulation. Soft Tissues: No soft tissue swelling or radiopaque foreign body.. IMPRESSION: No acute findings left foot radiography. Minor degenerative change present. Interphalangeal joints of the toes not well seen. RADIA
--- NOTE | 2018-07-23 16:32 | XRAY Report ---
Reason: PAIN, UNSPECIFIED Procedure Date: 07/23/2018 Accession Number: [id number] / [id number] Procedure: XR - Hand 3 View RT CPT Code: FULL RESULT: EXAM: RIGHT HAND RADIOGRAPHY EXAM DATE: 07/23/2018 03:07 PM. CLINICAL HISTORY: PAIN, UNSPECIFIED. COMPARISON: None. TECHNIQUE: 3 views. FINDINGS: Bones: No fractures or bone lesions. Small calcification along the dorsal aspect of the second DIP joint may be the residual of old trauma. Joints: No subluxations. Scattered minor interphalangeal joint degenerative change Soft Tissues: No soft tissue swelling. IMPRESSION: Minor right hand degenerative change without superimposed acute findings. RADIA
== END 2018-07-23 14:20 | disposition home or self-care (01) ==
LOC: DI 14:19
PROVIDERS: ATTEND Family Medicine
DX: M19.072 Primary osteoarthritis, left ankle and foot (principal); M19.042 Primary osteoarthritis, left hand; M19.041 Primary osteoarthritis, right hand

== ENCOUNTER 2018-07-26 17:03 | Outpatient (CLI) | payer MEDICAID | END 2018-07-26 17:04 | disposition critical access hospital (66) | LOC: EMS 17:03 | PROVIDERS: ATTEND Surgery | DX: F10.929 Alcohol use, unspecified with intoxication, unspecified (principal); M79.89 Other specified soft tissue disorders | CPT/HCPCS: A0425; A0429 ==

== ENCOUNTER 2018-07-26 17:07 | Emergency (ER) | payer MEDICAID ==
[2018-07-26] MEDS ORDERED: FOLIC ACID INJ 1 MG, THIAMINE INJ 100 MG, MAGNESIUM SULFATE 2 GM, MULTIVITAMIN 10 ML in... IV STA ×5 (17:20)
[2018-07-26 17:40] LABS: BASOPHILS % (AUTO) 0.6 %; EOSINOPHILS % (AUTO) 0.3 %; HGB - HEMOGLOBIN 14.3 g/dL (12.0-16.0); LYMPHOCYTES # (AUTO) 2.5 10^3/uL (1.5-3.5); LYMPHOCYTES % (AUTO) 58.3 %; MEAN CORPUSCULAR HEMOGLOBIN 35.1 pg (27.0-31.0); MEAN CORPUSCULAR HGB CONC 33.9 g/dL (32.0-36.0); MEAN CORPUSCULAR VOLUME 103.6 fL (81.0-99.0); MEAN PLATELET VOLUME 7.2 fL (7.9-10.8); MONOCYTES # (AUTO) 0.2 10^3/uL (0.0-1.0); MONOCYTES % (AUTO) 3.7 %; NEUTROPHILS # (AUTO) 1.6 10^3/uL (1.5-6.6); NEUTROPHILS % (AUTO) 37.1 %; PLT - PLATELET COUNT 191 10^3/uL (130-450); RED BLOOD COUNT 4.08 10^6/uL (4.20-5.40); RED CELL DISTRIBUTION WIDTH 14.8 % (12.0-15.0); WHITE BLOOD COUNT 4.3 x10^3/uL (4.8-10.8)
[2018-07-26] MEDS ORDERED: THIAMINE 100 MG/1 ML 2 ML MDV ONE (17:46)
[2018-07-26 17:53] LABS: ALBUMIN 4.2 g/dL (3.2-5.5); ALBUMIN/GLOBULIN RATIO 1.4 (1.0-2.2); BILIRUBIN,TOTAL 0.5 mg/dL (0.2-1.0); CALCIUM 8.4 mg/dL (8.5-10.3); CREATININE 0.5 mg/dL (0.4-1.0); TOTAL PROTEIN 7.2 g/dL (6.7-8.2)
[2018-07-26 17:58] LABS: PT - PROTHROMBIN TIME 10.9 secs (9.9-12.6)
[2018-07-26] MEDS ORDERED: FAMOTIDINE 20 MG/2 ML VIAL IVP STA (18:21)
[2018-07-26] MEDS ORDERED: POTASSIUM BICARB 25 MEQ TABLET PO STA (18:21)
[2018-07-26 19:29] LABS: BILIRUBIN,URINE NEGATIVE (NEGATIVE); GLUCOSE, URINE (UA) NEGATIVE (NEGATIVE); KETONES,URINE (UA) TRACE mg/dL (NEGATIVE); LEUKOCYTE ESTERASE, URINE NEGATIVE (NEGATIVE); NITRITE,URINE NEGATIVE (NEGATIVE); OCCULT BLOOD,URINE TRACE-INTA (NEGATIVE); PROTEIN,URINE NEGATIVE (NEGATIVE); UROBILINOGEN,URINE 0.2 (NORMAL) E.U./dL (NORMAL)
[2018-07-26 19:50] LABS: CLARITY,URINE CLEAR (CLEAR)
[2018-07-26 19:52] VITALS: BP 151/96
[2018-07-26] MEDS ORDERED: cloNIDine 0.1 MG TABLET PO STA (20:03)
[2018-07-26] MEDS ORDERED: LORazepam 0.5 MG TABLET PO STA ×2 (20:03→20:04)
--- NOTE | 2018-07-26 20:31 | ED Physician Documentation ---
PD HPI ALTERED MENTAL STATUS - Stated complaint Stated Complaint: ETOH - Chief complaint Chief Complaint: General - History obtained from History obtained from: Patient - History of Present Illness Timing - onset: How many days ago (3) Timing - duration: Days (3) Timing - details: Abrupt onset (she had been sober for over a month and was trying to get to alcohol rehab. Had been no beds available this past week. Working with Intake at [facility] in [place]. She got stressed and drank heavily the past 3 days. Wants to stop today and had not drank this afternoon (last drink was this morning). Concerned about withdrawal and also asking about detox.) Quality / character: Other (anxious and upset) Associated symptoms: No: Fever, Headache, Dyspnea, Cough, NVD Contributing factors: Intoxicated Basline status: Alert and oriented X 3, Ambulatory Similar symptoms before: Diagnosis (alcoholism with withdrawal on stopping in the past. No history of withdrawal seizures. No DTs. 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: section - Present Medications Home Medications: Ambulatory Orders Medication Instructions Recorded Confirmed Gabapentin 300 mg PO TID 05/13/17 05/13/17 Neomycin/Polymyx/Hc Otic Drops 4 drops RIGHTEAR TID #1 bottle 05/13/17 [Cortisporin Ear Susp] Venlafaxine HCl [Effexor Xr] 150 mg PO DAILY 05/13/17 05/13/17 LORazepam [Lorazepam] 1 - 2 mg PO Q6HR PRN #20 tablet 03/07/18 Ondansetron Odt [Zofran Odt] 4 mg TL Q6H PRN #14 tablet 03/07/18 chlordiazePOXIDE [Librium] 25 mg PO TID PRN #25 capsule 03/20/18 Ondansetron HCl [Zofran] 4 mg PO Q6H PRN #20 tablet 04/07/18 Ondansetron Odt [Zofran] 4 mg TL Q6H PRN #10 tablet 07/26/18 chlordiazePOXIDE [Librium] 25 - 50 mg PO Q8H PRN #30 capsule 07/26/18 cloNIDine [Catapres] 0.1 mg PO BID #14 tablet 07/26/18 - Allergies Allergies/Adverse Reactions: Allergies Allergy/AdvReac Type Severity Reaction Status Date / Time pregabalin [From Lyrica] Allergy Hives Verified 07/26/18 17:17 adhesive tape AdvReac Rash Verified 07/26/18 17:17 Sulfa (Sulfonamide AdvReac Itching Verified 07/26/18 17:17 Antibiotics) - Living Situation Living Situation: reports: Alone Living Arrangement: reports: At home - Social History Does the pt smoke?: No Smoking Status: Never smoker Does the pt drink ETOH?: Yes Does the pt have substance abuse?: No - Immunizations Immunizations are current?: Yes - POLST Patient has POLST: No PD ED PE NORMAL - Vitals Vital signs reviewed: Yes - General General: Alert and oriented X 3, No acute distress, Well developed/nourished, Other (emotional and upset at herself for drinking. Not suicidal. ) - HEENT HEENT: Moist mucous membranes, Pharynx benign - Neck Neck: Supple, no meningeal sign, No adenopathy - Cardiac Cardiac: RRR, No murmur - Respiratory Respiratory: Clear bilaterally - Abdomen Abdomen: Soft, Non tender - Derm Derm: Normal color, Warm and dry - Extremities Extremities: No tenderness to palpate, Normal ROM s pain, No edema, No calf tenderness / cord - Neuro Neuro: Alert and oriented X 3, No motor deficit, Normal speech (with just slight slurring) Results - Vitals Vitals: Oxygen O2 Source Room air - Labs Labs: Laboratory Tests 07/26/18 07/26/18 07/26/18 17:25 17:25 17:25 WBC 4.3 L RBC 4.08 L Hgb 14.3 Hct 42.3 MCV 103.6 H MCH 35.1 H MCHC 33.9 RDW 14.8 Plt Count 191 MPV 7.2 L Neut # (Auto) 1.6 Lymph # (Auto) 2.5 Parker # (Auto) 0.2 Eos # (Auto) 0.0 Baso # (Auto) 0.0 Absolute Nucleated RBC 0.00 Nucleated RBC % 0.0 PT 10.9 INR 1.0 Sodium 142 Potassium 3.2 L Chloride 103 Carbon Dioxide 26 Anion Gap 13.0 BUN 12 Creatinine 0.5 Estimated GFR (MDRD) 128 Glucose 151 H Calcium 8.4 L Total Bilirubin 0.5 AST 38 ALT 17 Alkaline Phosphatase 99 Ammonia Troponin I Total Protein 7.2 Albumin 4.2 Globulin 3.0 Albumin/Globulin Ratio 1.4 Lipase 26 Urine Color Urine Clarity Urine pH Ur Specific Cisne Urine Protein Urine Glucose (UA) Urine Ketones Urine Occult Blood Urine Nitrite Urine Bilirubin Urine Urobilinogen Ur Leukocyte Esterase Ur Microscopic Review Urine Culture Comments Ethyl Alcohol 248.4 Serum Ketones 07/26/18 07/26/18 07/26/18 17:25 17:25 18:00 WBC RBC Hgb Hct MCV MCH MCHC RDW Plt Count MPV Neut # (Auto) Lymph # (Auto) Parker # (Auto) Eos # (Auto) Baso # (Auto) Absolute Nucleated RBC Nucleated RBC % PT INR Sodium Potassium Chloride Carbon Dioxide Anion Gap BUN Creatinine Estimated GFR (MDRD) Glucose Calcium Total Bilirubin AST ALT Alkaline Phosphatase Ammonia 21.8 Troponin I < 0.04 Total Protein Albumin Globulin Albumin/Globulin Ratio Lipase Urine Color Urine Clarity Urine pH Ur Specific Cisne Urine Protein Urine Glucose (UA) Urine Ketones Urine Occult Blood Urine Nitrite Urine Bilirubin Urine Urobilinogen Ur Leukocyte Esterase Ur Microscopic Review Urine Culture Comments Ethyl Alcohol Serum Ketones NEGATIVE 07/26/18 19:26 WBC RBC Hgb Hct MCV MCH MCHC RDW Plt Count MPV Neut # (Auto) Lymph # (Auto) Parker # (Auto) Eos # (Auto) Baso # (Auto) Absolute Nucleated RBC Nucleated RBC % PT INR Sodium Potassium Chloride Carbon Dioxide Anion Gap BUN Creatinine Estimated GFR (MDRD) Glucose Calcium Total Bilirubin AST ALT Alkaline Phosphatase Ammonia Troponin I Total Protein Albumin Globulin Albumin/Globulin Ratio Lipase Urine Color YELLOW Urine Clarity CLEAR Urine pH 6.0 Ur Specific Cisne 1.015 Urine Protein NEGATIVE Urine Glucose (UA) NEGATIVE Urine Ketones TRACE Urine Occult Blood TRACE-INTA Urine Nitrite NEGATIVE Urine Bilirubin NEGATIVE Urine Urobilinogen 0.2 (NORMAL) Ur Leukocyte Esterase NEGATIVE Ur Microscopic Review NOT INDICATED Urine Culture Comments NOT INDICATED Ethyl Alcohol Serum Ketones PD MEDICAL DECISION MAKING - ED course Complexity details: reviewed results, considered differential (SW has gone for the day already. ER Nurse talked with patient and called the Detox facilities, and there were no beds available. ), d/w patient Departure - Departure Disposition: 01 Home, Self Care Clinical Impression: Alcoholism Alcohol intoxication Qualifiers: Complication of substance-induced condition: uncomplicated Qualified Code(s): F10.920 - Alcohol use, unspecified with intoxication, uncomplicated Condition: Stable Record reviewed to determine appropriate education?: Yes Instructions: ED Withdrawal Alcohol, ED Alcohol Abuse Follow-Up: DARLEEN FRY [Primary Care Provider] - Prescriptions: chlordiazePOXIDE [Librium] 25 - 50 mg PO Q8H PRN #30 capsule PRN Reason: Anxiety cloNIDine [Catapres] 0.1 mg PO BID #14 tablet Ondansetron Odt [Zofran] 4 mg TL Q6H PRN #10 tablet PRN Reason: Nausea / Vomiting Comments: No alcohol. Use the Ativan or Librium as needed for withdrawal symptoms. Ondansetron for nausea. Clonidine twice a day for a week to also help with withdrawal. Recheck if severe symptoms over the next couple of days not controlled with medicines. Contact the rehab facilities this coming week to check for bed availability. Discharge Date/Time: 07/26/18 20:39
== END 2018-07-26 20:39 | disposition home or self-care (01) ==
LOC: EDUNIT# → ED 17:07
DX: F10.220 Alcohol dependence with intoxication, uncomplicated (principal)
CPT/HCPCS: 36415; 80053; 80320; 81003; 82009; 82140; 83690; 84484; 85025; 85610; 96365; 96375; 99283; A9270; J3411; 81001; 87086

== ENCOUNTER 2018-08-16 17:03 | Emergency (ER) | payer MEDICAID ==
--- NOTE | 2018-08-16 17:25 | ED Physician Documentation ---
PD HPI ALTERED MENTAL STATUS - Stated complaint Stated Complaint: DETOX - Chief complaint Chief Complaint: MHE - History obtained from History obtained from: Patient - History of Present Illness Timing - onset: Today (she has been trying to stop alcohol use, and had brief sober periods, the last being 3 days, and then drank today. She is accepted in a rehab program and was to go there today. As she is intoxicated, a drivers license examiner is coming from the facility to pick her up with her consent, and she was directed to get "medical clearance" prior to going there. So she is here for medical eval.) Timing - details: Abrupt onset (she says she had been drinking since this morning and stopped a couple hours ago.) Quality / character: No: Agitated, Hallucinating Associated symptoms: No: Fever, Headache, Dyspnea, NVD Contributing factors: Intoxicated. 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.) Recently seen: Emergency Dept (seen for alcohol withdrawal recently and had Rx given as she attempted to find rehab facility (none had open beds at time of recent ER visit).) Review of Systems Constitutional: denies: Fever Nose: denies: Rhinorrhea / runny nose, Congestion Throat: denies: Sore throat Cardiac: denies: Chest pain / pressure Respiratory: denies: Cough GI: denies: Abdominal Pain, Vomiting, Diarrhea Skin: denies: Abrasion (s), Laceration (s) Neurologic: denies: Generalized weakness, Altered mental status, Headache, Head injury PD PAST MEDICAL HISTORY - Past Medical History Cardiovascular: High cholesterol Psych: Depression - Past Surgical History Past Surgical History: Yes Ortho: 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: section - Present Medications Home Medications: Ambulatory Orders Medication Instructions Recorded Confirmed Gabapentin 800 mg PO TID 05/13/17 05/13/17 Venlafaxine HCl [Effexor Xr] 225 mg PO DAILY 05/13/17 05/13/17 LORazepam [Lorazepam] 1 - 2 mg PO Q6HR PRN #20 tablet 03/07/18 chlordiazePOXIDE [Librium] 25 - 50 mg PO Q8H PRN #30 capsule 07/26/18 cloNIDine [Catapres] 0.1 mg PO BID #14 tablet 07/26/18 - Allergies Allergies/Adverse Reactions: Allergies Allergy/AdvReac Type Severity Reaction Status Date / Time pregabalin [From Lyrica] Allergy Hives Verified 08/16/18 18:02 adhesive tape AdvReac Rash Verified 08/16/18 18:02 Sulfa (Sulfonamide AdvReac Itching Verified 08/16/18 18:02 Antibiotics) - Living Situation Living Situation: reports: Alone Living Arrangement: reports: At home - Social History Does the pt smoke?: No Smoking Status: Never smoker Does the pt drink ETOH?: Yes ETOH Use: Other (regular, excess) Does the pt have substance abuse?: No - Immunizations Immunizations are current?: Yes - POLST Patient has POLST: No PD ED PE NORMAL - Vitals Vital signs reviewed: Yes - General General: Alert and oriented X 3, Well developed/nourished, Other (emotional/ tearful about being intoxicated. Excited about getting into rehab program today. ) - HEENT HEENT: Moist mucous membranes, Pharynx benign - Neck Neck: Supple, no meningeal sign, No adenopathy - Cardiac Cardiac: RRR, No murmur - Respiratory Respiratory: Clear bilaterally - Abdomen Abdomen: Soft, Non tender - Derm Derm: Normal color, Warm and dry - Extremities Extremities: No tenderness to palpate, Normal ROM s pain, No edema, No calf tenderness / cord - Neuro Neuro: Alert and oriented X 3, No motor deficit, Normal speech Results - Vitals Vitals: Oxygen O2 Source Room air - Labs Labs: Laboratory Tests 08/16/18 08/16/18 08/16/18 17:30 17:30 17:30 WBC 3.9 L RBC 3.34 L Hgb 11.9 L Hct 35.0 L MCV 104.6 H MCH 35.6 H MCHC 34.0 RDW 15.4 H Plt Count 196 MPV 6.6 L Neut # (Auto) 1.6 Lymph # (Auto) 2.1 Douglas # (Auto) 0.2 Eos # (Auto) 0.0 Baso # (Auto) 0.0 Absolute Nucleated RBC 0.00 Nucleated RBC % 0.0 Sodium 144 Potassium 3.1 L Chloride 105 Carbon Dioxide 28 Anion Gap 11.0 BUN 21 H Creatinine 0.6 Estimated GFR (MDRD) 103 Glucose 167 H Calcium 8.6 Total Bilirubin 0.5 AST 30 ALT 20 Alkaline Phosphatase 89 Total Protein 6.9 Albumin 4.1 Globulin 2.8 Albumin/Globulin Ratio 1.5 Lipase 29 TSH 0.41 Salicylates < 6.0 Acetaminophen < 10 L Ethyl Alcohol 258.1 PD MEDICAL DECISION MAKING - ED course Complexity details: considered differential (nurse called the alcohol rehab program and confirmed their existence and that a drivers license examiner was coming to get the patient. website check showed info on the facility. They said they can take the pateint if her BA is less than 250, which will be by time of her arrival (was 258 at time of draw)), d/w patient Departure - Departure Disposition: Home, Self Care Clinical Impression: Desire for detoxification, Alcoholism, Hypokalemia Alcohol intoxication Qualifiers: Complication of substance-induced condition: uncomplicated Qualified Code(s): F10.920 - Alcohol use, unspecified with intoxication, uncomplicated Condition: Stable Record reviewed to determine appropriate education?: Yes Instructions: Potassium Supplements Follow-Up: DARLEEN FRY [Primary Care Provider] - Comments: No alcohol. Go to the alcohol rehab program directly from here as planned. Prior medications as prescribed. Good luck with your rehab.Use some potassium supplements orally for the next week or so. Discharge Date/Time: 08/16/18 20:05
[2018-08-16 17:34] LABS: BASOPHILS % (AUTO) 0.4 %; EOSINOPHILS % (AUTO) 0.3 %; HGB - HEMOGLOBIN 11.9 g/dL (12.0-16.0); LYMPHOCYTES # (AUTO) 2.1 10^3/uL (1.5-3.5); LYMPHOCYTES % (AUTO) 52.7 %; MEAN CORPUSCULAR HEMOGLOBIN 35.6 pg (27.0-31.0); MEAN CORPUSCULAR VOLUME 104.6 fL (81.0-99.0); MEAN PLATELET VOLUME 6.6 fL (7.9-10.8); MONOCYTES # (AUTO) 0.2 10^3/uL (0.0-1.0); MONOCYTES % (AUTO) 5.1 %; NEUTROPHILS # (AUTO) 1.6 10^3/uL (1.5-6.6); NEUTROPHILS % (AUTO) 41.5 %; PLT - PLATELET COUNT 196 10^3/uL (130-450); RED BLOOD COUNT 3.34 10^6/uL (4.20-5.40); RED CELL DISTRIBUTION WIDTH 15.4 % (12.0-15.0); WHITE BLOOD COUNT 3.9 x10^3/uL (4.8-10.8)
[2018-08-16 17:48] LABS: ACETAMINOPHEN < 10 ug/mL (10-30); ALBUMIN 4.1 g/dL (3.2-5.5); ALBUMIN/GLOBULIN RATIO 1.5 (1.0-2.2); ALKALINE PHOSPHATASE 89 IU/L (42-121); ALT ALANINE AMINOTRANSFERASE 20 IU/L (10-60); AST ASPARTATE AMINOTRANSFERASE 30 IU/L (10-42); BILIRUBIN,TOTAL 0.5 mg/dL (0.2-1.0); BUN - BLOOD UREA NITROGEN 21 mg/dL (6-20); CALCIUM 8.6 mg/dL (8.5-10.3); CARBON DIOXIDE - CO2 28 mmol/L (21-32); CHLORIDE 105 mmol/L (101-111); CREATININE 0.6 mg/dL (0.4-1.0); GFR - MDRD 103 (>89); GLUCOSE 167 mg/dL (70-100); LIPASE 29 U/L (22-51); SALICYLATE < 6.0 mg/dL; SODIUM 144 mmol/L (135-145); TOTAL PROTEIN 6.9 g/dL (6.7-8.2)
[2018-08-16] MEDS ORDERED: POTASSIUM BICARB 25 MEQ TABLET PO STA (18:13)
[2018-08-16] MEDS ORDERED: LORazepam 0.5 MG TABLET PO STA (19:42)
[2018-08-16] MEDS ORDERED: ACETAMINOPHEN 325 MG TABLET PO STA (19:42)
[2018-08-16 20:05] VITALS: BP 121/75
== END 2018-08-16 20:05 | disposition home or self-care (01) ==
LOC: ED 17:03
DX: F10.220 Alcohol dependence with intoxication, uncomplicated (principal); E87.6 Hypokalemia; E78.00 Pure hypercholesterolemia, unspecified
CPT/HCPCS: 36415; 80053; 80307; 80320; 80329; 83690; 84443; 85025; 99283; 99284; A9270

== ENCOUNTER 2018-10-03 14:52 | Emergency (ER) | payer MEDICAID ==
[2018-10-03] MEDS ORDERED: IBUPROFEN 800 MG TABLET PO STA (15:10)
--- NOTE | 2018-10-03 15:13 | ED Physician Documentation ---
PD HPI MAJOR TRAUMA - Stated complaint Stated Complaint: FALL L LEG/FACE PAIN - Chief complaint Chief Complaint: Trauma Ext - History obtained from History obtained from: Patient - History of Present Illness Mechanism of injury: Fell (This is a 58-year-old woman with history of problems with alcoholism who 2 days ago fell in her home, it was a simple trip and fall. She says her last drink was 5 days ago and she is doing okay with the withdrawal process. She had some meds at home for it. She has severe left ankle pain, she says it was deformed but she reduced it herself. She is unable to walk or bear weight. 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 : None HEENT: None Psych: Depression Musculoskeletal: None Derm: None - Past Surgical History Past Surgical History: Yes Ortho: 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 - Present Medications Home Medications: Ambulatory Orders Medication Instructions Recorded Confirmed Gabapentin 800 mg PO TID 05/13/17 05/13/17 Venlafaxine HCl [Effexor Xr] 225 mg PO DAILY 05/13/17 05/13/17 LORazepam [Lorazepam] 1 - 2 mg PO Q6HR PRN #20 tablet 03/07/18 chlordiazePOXIDE [Librium] 25 - 50 mg PO Q8H PRN #30 capsule 07/26/18 cloNIDine [Catapres] 0.1 mg PO BID #14 tablet 07/26/18 Hydrocodone/Acetaminophen 1 - 2 each PO Q6H PRN #14 tablet 10/03/18 [Hydrocodon-Acetaminophen 5-325] Knee Scooter 1 unit TD ONCE #1 10/03/18 - Allergies Allergies/Adverse Reactions: Allergies Allergy/AdvReac Type Severity Reaction Status Date / Time pregabalin [From Lyrica] Allergy Hives Verified 10/03/18 15:00 adhesive tape AdvReac Rash Verified 10/03/18 15:00 Sulfa (Sulfonamide AdvReac Itching Verified 10/03/18 15:00 Antibiotics) - Social History Does the pt smoke?: No Smoking Status: Never smoker Does the pt drink ETOH?: Yes Does the pt have substance abuse?: No - Immunizations Immunizations are current?: Yes - POLST Patient has POLST: No PD ED PE NORMAL - Vitals Vital signs reviewed: Yes - General General: Alert and oriented X 3, Other (Slightly tremulous, alert and oriented.) - HEENT HEENT: PERRL, EOMI (No nystagmus), Other (She has a mucosal lip laceration on the inside of the lower lip midline from her teeth hitting the left. It is healing and there are no signs of infection. She is tender over the bridge of the nose with mild swelling but no deformity.) - Neck Neck: Supple, no meningeal sign, No bony TTP - Cardiac Cardiac: RRR, No murmur - Respiratory Respiratory: No respiratory distress, Clear bilaterally - Abdomen Abdomen: Soft, Non tender - Back Back: No CVA TTP, No spinal TTP - Extremities Extremities: Other (She is quite tender over the lateral ankle and proximal fifth metatarsal of the left foot with a lot of ecchymosis and swelling. No proximal fibular tenderness.) - Neuro Neuro: Alert and oriented X 3, Normal speech Results - Vitals Vitals: Vital Signs - 24 hr 10/03/18 14:57 Temperature 36.7 C Heart Rate 115 H Respiratory 18 Rate Blood Pressure 139/94 H O2 Saturation 99 Oxygen O2 Source Room air - Rads (name of study) L foot Radiology: EMP read contemporaneously (Acute fractures of the proximal first through fourth metatarsals) L ankle Radiology: EMP read contemporaneously (Distal fibular fracture several centimeters above the mortise with some comminution and displacement) CT Head and Face Radiology: EMP read contemporaneously (NAD) Procedures - Splint (location) LLE Splint applied by: Tech Type of splint: Fiberglass, Short leg, Posterior, Stirrup Other: Patient tolerated well, No complications, Neurovascular intact. No: Crutches provided (she has them) PD MEDICAL DECISION MAKING - ED course ED course: This is a 58-year-old woman who is at the tail end of alcohol withdrawal who fell a few days ago and has a comminuted distal fibula fracture and for metatarsal fractures. Case was discussed by phone with Dr. Mendoza, the on-call orthopedic surgeon who reviewed her x-rays. Given her particular social circumstances, he felt that she would not be a good surgical candidate and recommended splinting and follow-up in the clinic and nonweightbearing if able. Departure - Departure Disposition: 01 Home, Self Care Clinical Impression: Head injury Qualifiers: Encounter type: initial encounter Qualified Code(s): S09.90XA - Unspecified injury of head, initial encounter Metatarsal bone fracture Qualifiers: Encounter type: initial encounter Metatarsal bone: first Fracture type: closed Fracture alignment: nondisplaced Laterality: left Qualified Code(s): S92.315A - Nondisplaced fracture of first metatarsal bone, left foot, initial encounter for closed fracture Fracture of second metatarsal bone of left foot Qualifiers: Encounter type: initial encounter Fracture type: closed Fracture alignment: nondisplaced Qualified Code(s): S92.325A - Nondisplaced fracture of second metatarsal bone, left foot, initial encounter for closed fracture Fracture of third metatarsal bone of left foot Qualifiers: Encounter type: initial encounter Fracture type: closed Fracture alignment: nondisplaced Qualified Code(s): S92.335A - Nondisplaced fracture of third metatarsal bone, left foot, initial encounter for closed fracture Fracture of fourth metatarsal bone of left foot Qualifiers: Encounter type: initial encounter Fracture type: closed Fracture alignment: nondisplaced Qualified Code(s): S92.345A - Nondisplaced fracture of fourth metatarsal bone, left foot, initial encounter for closed fracture Fracture of distal end of fibula Qualifiers: Encounter type: initial encounter Fracture type: closed Fracture morphology: other fracture Laterality: left Qualified Code(s): S82.832A - Other fracture of upper and lower end of left fibula, initial encounter for closed fracture Facial contusion Qualifiers: Encounter type: initial encounter Qualified Code(s): S00.83XA - Contusion of other part of head, initial encounter Lip laceration Qualifiers: Encounter type: initial encounter Qualified Code(s): S01.511A - Laceration without foreign body of lip, initial encounter Condition: Stable Record reviewed to determine appropriate education?: Yes Instructions: ED Fx Foot, ED Fx Lower Ext, ED Head Injury Closed Follow-Up: [facility] [Provider Group] - Within 1 week Prescriptions: Hydrocodone/Acetaminophen [Hydrocodon-Acetaminophen 5-325] 1 - 2 each PO Q6H PRN #14 tablet PRN Reason: pain Knee Scooter 1 unit TD ONCE #1 Comments: Keep your left leg elevated, keep the splint on and dry do not remove it, do not get it wet. Return for new or worsening symptoms. Do not drink alcohol.
--- NOTE | 2018-10-03 16:34 | CT Report ---
Reason: ETOh, fall head/face and LLE inj Procedure Date: 10/03/2018 Accession Number: [id number] / [id number] Procedure: CT - MAXILLOFACIAL WO CPT Code: FULL RESULT: EXAM: CT MAXILLOFACIAL WITHOUT CONTRAST EXAM DATE: 10/03/2018 03:39 PM. CLINICAL HISTORY: ETOh, fall head/face and LLE inj. COMPARISONS: CERVICAL SPINE W/O 07/06/2018 5:00 PM. TECHNIQUE: Thin-section axial images were acquired of the face without contrast. Post-processing: Coronal and sagittal reformats. Other: None. In accordance with CT protocol optimization, one or more of the following dose reduction techniques were utilized for this exam: automated exposure control, adjustment of mA and/or KV based on patient size, or use of iterative reconstructive technique. FINDINGS: Soft Tissue: The infratemporal fossa and parapharyngeal spaces are unremarkable. Superficial soft tissue swelling over chin. Orbits: Symmetric and unremarkable. Bones: No fracture or bone lesion. Temporomandibular Joints: The temporomandibular joints are symmetric and normally located. Sinuses: Minimal mucosal thickening generally. Clear sphenoid. No air-fluid level. Other: None. IMPRESSION: Mild soft tissue swelling. RADIA
--- NOTE | 2018-10-03 16:36 | XRAY Report ---
Reason: ETOh, fall head/face and LLE inj Procedure Date: 10/03/2018 Accession Number: [id number] / [id number] Procedure: XR - Ankle 3 View LT CPT Code: FULL RESULT: EXAM: LEFT ANKLE RADIOGRAPHY EXAM DATE: 10/03/2018 04:09 PM. CLINICAL HISTORY: ETOh, fall head/face and LLE inj. COMPARISON: None. TECHNIQUE: 3 views. FINDINGS: Bones: Acute comminuted distal left fibular diaphyseal fracture centered 8 cm from distal-most fibular tip. Mild displacement of dominant fracture segments. Joints: Normal. No effusion. No subluxations. The ankle mortise is normally aligned. Soft Tissues: Diffuse soft tissue swelling, greater along lateral ankle. IMPRESSION: 1. Acute, comminuted distal left fibular diaphyseal fracture centered 8 cm from distal-most fibular tip. Mild displacement of dominant fracture segments. RADIA
--- NOTE | 2018-10-03 16:37 | CT Report ---
Reason: ETOh, fall head/face and LLE inj Procedure Date: 10/03/2018 Accession Number: [id number] / [id number] Procedure: CT - HEAD WO CPT Code: FULL RESULT: EXAM: CT HEAD EXAM DATE: 10/03/2018 03:39 PM. CLINICAL HISTORY: ETOh, fall head/face and LLE inj. COMPARISON: HEAD W/O 07/06/2018 5:00 PM. TECHNIQUE: Multiaxial CT images were obtained from the foramen magnum to the vertex. Reformats: Sagittal and coronal. IV contrast: None. In accordance with CT protocol optimization, one or more of the following dose reduction techniques were utilized for this exam: automated exposure control, adjustment of mA and/or KV based on patient size, or use of iterative reconstructive technique. FINDINGS: Parenchyma: No acute intraparenchymal hemorrhage. No evidence of mass or midline shift. Herrera-white differentiation is distinct. Mild generalized cerebral volume loss. Extraaxial Spaces: No subdural or epidural collections identified. Ventricles: Normal in size and position. Sinuses and Orbits: Small air-fluid level in the left maxillary sinus, which is nonspecific. Bones: No evidence of fracture or calvarial defect. Other: None. IMPRESSION: No acute intracranial findings. An acute infarct may not be visible by CT. Follow-up examinations recommended as clinically indicated. RADIA
--- NOTE | 2018-10-03 16:40 | XRAY Report ---
Reason: ETOh, fall head/face and LLE inj Procedure Date: 10/03/2018 Accession Number: [id number] / [id number] Procedure: XR - Foot 3 View LT CPT Code: FULL RESULT: EXAM: LEFT FOOT RADIOGRAPHY EXAM DATE: 10/03/2018 04:09 PM. CLINICAL HISTORY: ETOh, fall head/face and LLE inj. Ground-level fall 2 days ago. COMPARISON: FOOT 3 VIEW LT 07/23/2018 2:45 PM. TECHNIQUE: 3 views. FINDINGS: Bones: Acute transverse fractures across the proximal metadiaphyseal junctions of left second, third and fourth metatarsals with mild displacement along fourth metatarsal fracture site. There is also a mildly comminuted fracture involving proximal left first metatarsal with oblique fracture line extending towards the medial aspect of first tarsometatarsal joint. Potential intra-articular extension. Joints: Normal. No subluxations. Soft Tissues: Left foot soft tissue swelling. IMPRESSION: Acute fractures involving proximal left first through fourth metatarsals. Mild displacement along the proximal fourth metatarsal fracture site. Proximal first metatarsal fracture may have intra-articular extension along medial aspect. Consider CT to further characterize and exclude additional fractures. RADIA
--- NOTE | 2018-10-03 16:44 | CT Report ---
Reason: ETOh, fall head/face and LLE inj Procedure Date: 10/03/2018 Accession Number: [id number] / [id number] Procedure: CT - CERVICAL SPINE WO CPT Code: FULL RESULT: EXAM: CT CERVICAL SPINE WITHOUT CONTRAST DATE: 10/03/2018 03:39 PM. HISTORY: ETOh, fall head/face and LLE inj. COMPARISONS: CERVICAL SPINE W/O 07/06/2018 5:00 PM. TECHNIQUE: Thin-section axial images were acquired of the cervical spine without contrast. Post-processing: Coronal and sagittal reformats. Other: None. In accordance with CT protocol optimization, one or more of the following dose reduction techniques were utilized for this exam: automated exposure control, adjustment of mA and/or KV based on patient size, or use of iterative reconstructive technique. FINDINGS: Alignment: No scoliosis or spondylolisthesis. Bones: No fracture or bone lesion. Interspace Levels/Facets: Minimal disk space narrowing at all cervical levels except C2-C3. Mild degenerative changes. Musculature: Normal. No fatty atrophy. Other: The paravertebral and prevertebral soft tissues are unremarkable. The lung apices are clear. IMPRESSION: No acute disease. RADIA
[2018-10-03 16:45] VITALS: BP 142/90
== END 2018-10-03 16:53 | disposition home or self-care (01) ==
LOC: ED 14:52
DX: S82.832A Other fracture of upper and lower end of left fibula, initial encounter for closed fracture (principal); S92.315A Nondisplaced fracture of first metatarsal bone, left foot, initial encounter for closed fracture; S92.325A Nondisplaced fracture of second metatarsal bone, left foot, initial encounter for closed fracture; S92.335A Nondisplaced fracture of third metatarsal bone, left foot, initial encounter for closed fracture; S92.345A Nondisplaced fracture of fourth metatarsal bone, left foot, initial encounter for closed fracture; S01.511A Laceration without foreign body of lip, initial encounter; S09.90XA Unspecified injury of head, initial encounter; S00.83XA Contusion of other part of head, initial encounter; W01.0XXA Fall on same level from slipping, tripping and stumbling without subsequent striking against object, initial encounter; Y92.000 Kitchen of unspecified non-institutional (private) residence as the place of occurrence of the external cause; F10.239 Alcohol dependence with withdrawal, unspecified
CPT/HCPCS: 29515; 70450; 70486; 72125; 73610; 73630; 99283; 99284; A9270

== ENCOUNTER 2018-10-11 11:31 | Outpatient (CLI) | payer MEDICAID | END 2018-10-11 11:32 | disposition critical access hospital (66) | LOC: EMS 11:31 | PROVIDERS: ATTEND Surgery | DX: M79.662 Pain in left lower leg (principal) | CPT/HCPCS: A0425; A0429; A0999 ==

== ENCOUNTER 2018-10-11 11:36 | Emergency (ER) | payer MEDICAID ==
[2018-10-11 11:53] LABS: BASOPHILS % (AUTO) 0.4 %; EOSINOPHILS % (AUTO) 0.4 %; HGB - HEMOGLOBIN 12.8 g/dL (12.0-16.0); LYMPHOCYTES # (AUTO) 1.8 10^3/uL (1.5-3.5); LYMPHOCYTES % (AUTO) 37.7 %; MEAN CORPUSCULAR HEMOGLOBIN 33.5 pg (27.0-31.0); MEAN CORPUSCULAR HGB CONC 33.5 g/dL (32.0-36.0); MEAN CORPUSCULAR VOLUME 100.1 fL (81.0-99.0); MEAN PLATELET VOLUME 6.7 fL (7.9-10.8); MONOCYTES # (AUTO) 0.2 10^3/uL (0.0-1.0); MONOCYTES % (AUTO) 4.5 %; NEUTROPHILS # (AUTO) 2.7 10^3/uL (1.5-6.6); PLT - PLATELET COUNT 182 10^3/uL (130-450); RED BLOOD COUNT 3.82 10^6/uL (4.20-5.40); RED CELL DISTRIBUTION WIDTH 13.7 % (12.0-15.0); WHITE BLOOD COUNT 4.8 x10^3/uL (4.8-10.8)
[2018-10-11 12:05] LABS: MUDS CUTOFF CONCENTRATIONS CUTOFF CONC BELOW:
[2018-10-11 12:09] LABS: BILIRUBIN,URINE NEGATIVE (NEGATIVE); GLUCOSE, URINE (UA) NEGATIVE (NEGATIVE); KETONES,URINE (UA) NEGATIVE (NEGATIVE); LEUKOCYTE ESTERASE, URINE NEGATIVE (NEGATIVE); NITRITE,URINE NEGATIVE (NEGATIVE); OCCULT BLOOD,URINE NEGATIVE (NEGATIVE); PROTEIN,URINE NEGATIVE (NEGATIVE); UROBILINOGEN,URINE 0.2 (NORMAL) E.U./dL (NORMAL)
[2018-10-11 12:12] LABS: ACETAMINOPHEN < 10 ug/mL (10-30); ALBUMIN 4.1 g/dL (3.2-5.5); ALBUMIN/GLOBULIN RATIO 1.5 (1.0-2.2); ALKALINE PHOSPHATASE 131 IU/L (42-121); ALT ALANINE AMINOTRANSFERASE 18 IU/L (10-60); AST ASPARTATE AMINOTRANSFERASE 26 IU/L (10-42); BILIRUBIN,TOTAL 0.7 mg/dL (0.2-1.0); BUN - BLOOD UREA NITROGEN 18 mg/dL (6-20); CALCIUM 8.7 mg/dL (8.5-10.3); CARBON DIOXIDE - CO2 26 mmol/L (21-32); CHLORIDE 98 mmol/L (101-111); CREATININE 0.6 mg/dL (0.4-1.0); GFR - MDRD 103 (>89); GLUCOSE 135 mg/dL (70-100); LIPASE 18 U/L (22-51); SALICYLATE < 6.0 mg/dL; SODIUM 138 mmol/L (135-145); TOTAL PROTEIN 6.9 g/dL (6.7-8.2)
[2018-10-11 12:14] LABS: CLARITY,URINE CLEAR (CLEAR)
[2018-10-11 12:18] LABS: AMPHETAMINE SCREEN,URINE NEGATIVE (NEGATIVE); BENZODIAZEPINES SCREEN, URINE POSITIVE (NEGATIVE); COCAINE SCREEN URINE NEGATIVE (NEGATIVE); METHADONE SCREEN, URINE NEGATIVE (NEGATIVE); METHAMPHETAMINES SCREEN, URINE NEGATIVE (NEGATIVE); OPIATE SCREEN, URINE NEGATIVE (NEGATIVE); OXYCODONE SCREEN, URINE NEGATIVE (NEGATIVE); PROPOXYPHENE SCREEN, URINE NEGATIVE (NEGATIVE); TRICYCLIC ANTIDEPRESSANT,URINE NEGATIVE (NEGATIVE)
--- NOTE | 2018-10-11 12:34 | ED Physician Documentation ---
History of Present Illness - Stated complaint Stated Complaint: ALOC - Chief complaint Chief Complaint: Ext Problem - History obtained from History obtained from: Patient, Friend, EMS - History of Present Illness Timing: Today Pain level max: 0 Pain level now: 0 - Additonal information Additional information: 58-year-old female presents to the emergency department with acute alcohol intoxication. She is a well-known alcoholic. Had been to rehab recently. Friend called 911 because she was intoxicated. Patient had decreased level of consciousness en route to the emergency department and had to be sternal rubbed. She has an splint on the left foot for a fibula fracture. Nothing makes it better or worse. 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 : None HEENT: None Psych: Depression Musculoskeletal: None Derm: None - Past Surgical History Past Surgical History: Yes Ortho: Spine surgery /MIDDLE SCHOOL DIRECTOR: section - Present Medications Home Medications: Ambulatory Orders Medication Instructions Recorded Confirmed Gabapentin 800 mg PO TID 05/13/17 05/13/17 Venlafaxine HCl [Effexor Xr] 225 mg PO DAILY 05/13/17 05/13/17 chlordiazePOXIDE [Librium] 25 - 50 mg PO Q8H PRN #30 capsule 07/26/18 cloNIDine [Catapres] 0.1 mg PO BID #14 tablet 07/26/18 Knee Scooter 1 unit TD ONCE #1 10/03/18 Benztropine [Cogentin] 1 mg PO 10/11/18 Cetirizine [ZyrTEC] 5 mg PO ONCE 10/11/18 10/11/18 DULoxetine [Cymbalta] 60 mg PO DAILY 10/11/18 10/11/18 Meloxicam 7.5 mg PO 10/11/18 10/11/18 Metoprolol Succinate [Kapspargo 25 mg PO 10/11/18 10/11/18 Sprinkle] Omeprazole 20 mg PO 10/11/18 10/11/18 Ondansetron [Ondansetron Odt] 4 mg PO 10/11/18 10/11/18 Oxazepam 15 mg PO 10/11/18 10/11/18 busPIRone [Buspar] 10 10/11/18 traZODone [Desyrel] 150 mg PO HS 10/11/18 10/11/18 - Allergies Allergies/Adverse Reactions: Allergies Allergy/AdvReac Type Severity Reaction Status Date / Time pregabalin [From Lyrica] Allergy Hives Verified 10/11/18 11:47 adhesive tape AdvReac Rash Verified 10/11/18 11:47 Sulfa (Sulfonamide AdvReac Itching Verified 10/11/18 11:47 Antibiotics) - Social History Does the pt smoke?: No Smoking Status: Never smoker Does the pt drink ETOH?: Yes Does the pt have substance abuse?: No - Immunizations Immunizations are current?: Yes - POLST Patient has POLST: No PD ED PE NORMAL - Vitals Vital signs reviewed: Yes - General General: Other (Drowsy, arousable to sternal rub) - HEENT HEENT: PERRL, Moist mucous membranes - Neck Neck: Supple, no meningeal sign - Cardiac Cardiac: RRR, Strong equal pulses - Respiratory Respiratory: No respiratory distress, Clear bilaterally - Abdomen Abdomen: Soft, Non tender, Non distended - Derm Derm: Warm and dry - Extremities Extremities: Other (Splint on left lower extremity) - Neuro Neuro: Other (Drowsy but arousable) Eye Opening: To Voice Motor: Localizes to Pain Verbal: Confused GCS Score: 12 Results - Vitals Vitals: Vital Signs - 24 hr 10/11/18 10/11/18 10/11/18 11:40 14:31 15:07 Temperature 36.6 C 36.7 C Heart Rate 88 90 85 Respiratory 14 24 14 Rate Blood Pressure 131/85 H 112/72 135/92 H O2 Saturation 100 100 95 10/11/18 15:13 Temperature Heart Rate 81 Respiratory 17 Rate Blood Pressure 138/73 H O2 Saturation 98 Oxygen O2 Source Room air - EKG (time done) 1215 Rate: Rate (enter#) (87) Rhythm: NSR Intervals: LBBB Ischemia: Other (neg sgarbosa criteria) - Labs Labs: Laboratory Tests 10/11/18 10/11/18 10/11/18 11:50 11:51 11:51 WBC 4.8 RBC 3.82 L Hgb 12.8 Hct 38.3 MCV 100.1 H MCH 33.5 H MCHC 33.5 RDW 13.7 Plt Count 182 MPV 6.7 L Neut # (Auto) 2.7 Lymph # (Auto) 1.8 [place] # (Auto) 0.2 Eos # (Auto) 0.0 Baso # (Auto) 0.0 Absolute Nucleated RBC 0.00 Nucleated RBC % 0.0 Sodium 138 Potassium 3.1 L Chloride 98 L Carbon Dioxide 26 Anion Gap 14.0 H BUN 18 Creatinine 0.6 Estimated GFR (MDRD) 103 Glucose 135 H Calcium 8.7 Total Bilirubin 0.7 AST 26 ALT 18 Alkaline Phosphatase 131 H Total Protein 6.9 Albumin 4.1 Globulin 2.8 Albumin/Globulin Ratio 1.5 Lipase 18 L TSH Urine Color LT. YELLOW Urine Clarity CLEAR Urine pH 6.0 Ur Specific [place] <=1.005 Urine Protein NEGATIVE Urine Glucose (UA) NEGATIVE Urine Ketones NEGATIVE Urine Occult Blood NEGATIVE Urine Nitrite NEGATIVE Urine Bilirubin NEGATIVE Urine Urobilinogen 0.2 (NORMAL) Ur Leukocyte Esterase NEGATIVE Ur Microscopic Review NOT INDICATED Urine Culture Comments NOT INDICATED Salicylates < 6.0 Urine Opiates Screen NEGATIVE Ur Oxycodone Screen NEGATIVE Urine Methadone Screen NEGATIVE Ur Propoxyphene Screen NEGATIVE Acetaminophen < 10 L Ur Barbiturates Screen NEGATIVE Ur Tricyclics Screen NEGATIVE Ur Phencyclidine Scrn NEGATIVE Ur Amphetamine Screen NEGATIVE U Methamphetamines Scrn NEGATIVE U Benzodiazepines Scrn POSITIVE H Urine Cocaine Screen NEGATIVE U Cannabinoids Screen NEGATIVE Ethyl Alcohol 299.2 10/11/18 11:51 WBC RBC Hgb Hct MCV MCH MCHC RDW Plt Count MPV Neut # (Auto) Lymph # (Auto) [place] # (Auto) Eos # (Auto) Baso # (Auto) Absolute Nucleated RBC Nucleated RBC % Sodium Potassium Chloride Carbon Dioxide Anion Gap BUN Creatinine Estimated GFR (MDRD) Glucose Calcium Total Bilirubin AST ALT Alkaline Phosphatase Total Protein Albumin Globulin Albumin/Globulin Ratio Lipase TSH 0.30 L Urine Color Urine Clarity Urine pH Ur Specific [place] Urine Protein Urine Glucose (UA) Urine Ketones Urine Occult Blood Urine Nitrite Urine Bilirubin Urine Urobilinogen Ur Leukocyte Esterase Ur Microscopic Review Urine Culture Comments Salicylates Urine Opiates Screen Ur Oxycodone Screen Urine Methadone Screen Ur Propoxyphene Screen Acetaminophen Ur Barbiturates Screen Ur Tricyclics Screen Ur Phencyclidine Scrn Ur Amphetamine Screen U Methamphetamines Scrn U Benzodiazepines Scrn Urine Cocaine Screen U Cannabinoids Screen Ethyl Alcohol - Rads (name of study) Head CT Radiology: Prelim report reviewed, EMP read contemporaneously, See rad report (No acute intracranial abnormality) PD MEDICAL DECISION MAKING - ED course Complexity details: reviewed old records, reviewed results, re-evaluated patient, considered differential, d/w patient, d/w database reporting consultant ED course: 58-year-old female presents to the emergency department with acute alcohol intoxication. She was allowed to sober in the emergency department. No acute findings on laboratory testing or head CT. She is ambulating on the splint despite her metatarsal fractures and fibula fracture. I discussed the case with Dr. Coello, orthopedics who recommends placing her in a walking boot and informing her that she will be referred to [facility] for further care. Patient states she cannot use crutches or a walker, therefore she refuses to be nonweightbearing. Patient also refuses a social work consultation and states she will not drink when she goes home. I do not feel comfortable prescribing narcotics while she is drinking to intoxication. Patient counseled regarding signs and symptoms for which I believe and urgent re-evaluation would be necessary. Patient with good understanding of and agreement to plan and is comfortable going home at this time This document was made in part using voice recognition software. While efforts are made to proofread this document, sound alike and grammatical errors may occur. Departure - Departure Disposition: 01 Home, Self Care Clinical Impression: Alcohol intoxication Qualifiers: Complication of substance-induced condition: uncomplicated Qualified Code(s): F10.920 - Alcohol use, unspecified with intoxication, uncomplicated Fracture of distal end of fibula Qualifiers: Encounter type: initial encounter Fracture type: closed Fracture morphology: other fracture Laterality: left Qualified Code(s): S82.832A - Other fracture of upper and lower end of left fibula, initial encounter for closed fracture Metatarsal bone fracture Qualifiers: Encounter type: initial encounter Metatarsal bone: unspecified metatarsal Fracture type: closed Fracture alignment: displaced Laterality: left Qualified Code(s): S92.302A - Fracture of unspecified metatarsal bone(s), left foot, initial encounter for closed fracture Condition: Good Instructions: ED Alcohol Intoxication, ED Fx Foot, ED Boot Aircast Walker Follow-Up: DARLEEN FRY [Primary Care Provider] - Within 1 week [facility] [Provider Group] - Within 1 week Comments: Follow up with orthopedics for further care. You will need to see a foot and ankle specialist for repair of your foot and fibula. Orthopedics here can refer you or your doctor can refer you. As you are not able to keep yourself from bearing weight on that foot and ankle despite crutches or a walker, a walking boot will be applied today. this needs to stay in place. your injuries will require surgery. You also need to quit drinking alcohol. Narcotics should not be mixed with alcohol. Discharge Date/Time: 10/11/18 15:45
--- NOTE | 2018-10-11 12:49 | CT Report ---
Reason: ALOC Procedure Date: 10/11/2018 Accession Number: [id number] / [id number] Procedure: CT - HEAD WO CPT Code: FULL RESULT: EXAM: CT HEAD EXAM DATE: 10/11/2018 12:09 PM. CLINICAL HISTORY: Altered mental status. COMPARISON: Head CT 10/03/2018. TECHNIQUE: Multiaxial CT images were obtained from the foramen magnum to the vertex. Reformats: Sagittal and coronal. IV contrast: None. In accordance with CT protocol optimization, one or more of the following dose reduction techniques were utilized for this exam: automated exposure control, adjustment of mA and/or KV based on patient size, or use of iterative reconstructive technique. FINDINGS: Parenchyma: No intraparenchymal hemorrhage. No evidence of mass, midline shift, or CT findings of acute infarction. Stable generalized cerebral and cerebellar volume loss. Herrera-white differentiation remains distinct. Extraaxial Spaces: Stable. No subdural or epidural collections identified. Ventricles: Normal in size and position. Sinuses and Orbits: Imaged paranasal sinuses, orbits, and mastoids show no significant abnormality. Bones: No evidence of fracture or calvarial defect. IMPRESSION: 1. No acute intracranial abnormality identified. No intracranial hemorrhage or space-occupying lesion. RADIA
[2018-10-11] MEDS ORDERED: FOLIC ACID INJ 1 MG, THIAMINE INJ 100 MG, MAGNESIUM SULFATE 2 GM, MULTIVITAMIN 10 ML in... IV STA ×5 (13:01)
[2018-10-11 15:13] VITALS: BP 138/73
== END 2018-10-11 15:45 | disposition home or self-care (01) ==
LOC: EDUNIT# → ED 11:36
DX: F10.220 Alcohol dependence with intoxication, uncomplicated (principal); I44.7 Left bundle-branch block, unspecified; S82.832A Other fracture of upper and lower end of left fibula, initial encounter for closed fracture; S92.302A Fracture of unspecified metatarsal bone(s), left foot, initial encounter for closed fracture; X58.XXXA Exposure to other specified factors, initial encounter
CPT/HCPCS: 36415; 70450; 80053; 80306; 80307; 80320; 80329; 81003; 83690; 84443; 85025; 93005; 96374; 99284; 99285; J3411; 81001; 87086

== ENCOUNTER 2018-10-24 10:21 | Outpatient (CLI) | payer MEDICAID | END 2018-10-24 10:22 | disposition critical access hospital (66) | LOC: EMS 10:21 | PROVIDERS: ATTEND Surgery | DX: R27.9 Unspecified lack of coordination (principal); R47.81 Slurred speech ==

== ENCOUNTER 2018-10-24 10:26 | Emergency (ER) | payer MEDICAID ==
[2018-10-24 10:35] VITALS: BP 138/84
[2018-10-24] MEDS ORDERED: FOLIC ACID INJ 1 MG, THIAMINE INJ 100 MG, MAGNESIUM SULFATE 2 GM, MULTIVITAMIN 10 ML in... IV STA ×5 (10:47)
--- NOTE | 2018-10-24 10:50 | ED Physician Documentation ---
History of Present Illness - Stated complaint Stated Complaint: ETOH - Chief complaint Chief Complaint: General - History obtained from History obtained from: Patient, EMS - History of Present Illness Timing: Today Pain level max: 0 Pain level now: 0 - Additonal information Additional information: Patient states that she drinks 1/5 of vodka per day and was told by her custom protection officer to come to the emergency department for detox. Does not use any other drugs. Has been drinking today. No vomiting. No headache. No falls or injuries. 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 : None HEENT: None Psych: Depression Musculoskeletal: None Derm: None - Past Surgical History Past Surgical History: Yes Ortho: Spine surgery /EXCELSIOR MACHINE FEEDER: section - Present Medications Home Medications: Ambulatory Orders Medication Instructions Recorded Confirmed Gabapentin 800 mg PO TID 05/13/17 05/13/17 Venlafaxine HCl [Effexor Xr] 225 mg PO DAILY 05/13/17 05/13/17 chlordiazePOXIDE [Librium] 25 - 50 mg PO Q8H PRN #30 capsule 07/26/18 cloNIDine [Catapres] 0.1 mg PO BID #14 tablet 07/26/18 Knee Scooter 1 unit TD ONCE #1 10/03/18 Benztropine [Cogentin] 1 mg PO 10/11/18 Cetirizine [ZyrTEC] 5 mg PO ONCE 10/11/18 10/11/18 DULoxetine [Cymbalta] 60 mg PO DAILY 10/11/18 10/11/18 Meloxicam 7.5 mg PO 10/11/18 10/11/18 Metoprolol Succinate [Kapspargo 25 mg PO 10/11/18 10/11/18 Sprinkle] Omeprazole 20 mg PO 10/11/18 10/11/18 Ondansetron [Ondansetron Odt] 4 mg PO 10/11/18 10/11/18 Oxazepam 15 mg PO 10/11/18 10/11/18 busPIRone [Buspar] 10 10/11/18 traZODone [Desyrel] 150 mg PO HS 10/11/18 10/11/18 - Allergies Allergies/Adverse Reactions: Allergies Allergy/AdvReac Type Severity Reaction Status Date / Time pregabalin [From Lyrica] Allergy Hives Verified 10/24/18 10:30 adhesive tape AdvReac Rash Verified 10/24/18 10:30 Sulfa (Sulfonamide AdvReac Itching Verified 10/24/18 10:30 Antibiotics) - Social History Does the pt smoke?: No Smoking Status: Never smoker Does the pt drink ETOH?: Yes Does the pt have substance abuse?: No - Immunizations Immunizations are current?: Yes - POLST Patient has POLST: No PD ED PE NORMAL - Vitals Vital signs reviewed: Yes - General General: Alert and oriented X 3, No acute distress - HEENT HEENT: PERRL, Moist mucous membranes - Neck Neck: Supple, no meningeal sign - Cardiac Cardiac: RRR, Strong equal pulses - Respiratory Respiratory: No respiratory distress, Clear bilaterally - Abdomen Abdomen: Soft, Non tender, Non distended - Derm Derm: Warm and dry - Extremities Extremities: No edema - Neuro Neuro: Alert and oriented X 3 - Psych Psych: Normal mood, Normal affect Results - Vitals Vitals: Vital Signs - 24 hr 10/24/18 10/24/18 10:28 10:34 Temperature 36.3 C L Heart Rate 100 89 Respiratory 18 18 Rate Blood Pressure 173/111 H 138/84 H O2 Saturation 98 98 Oxygen O2 Source Room air PD MEDICAL DECISION MAKING - ED course Complexity details: considered differential, d/w patient ED course: Patient eloped from the emergency department after I spoke with her. She is not suicidal or homicidal. She did however take the hospital phone with her, therefore police were contacted, they went and confiscated the phone from her and brought it back. Patient is ambulating without any difficulty as she eloped. Departure - Departure Disposition: ED Elope Clinical Impression: Alcoholism Alcohol intoxication Qualifiers: Complication of substance-induced condition: uncomplicated Qualified Code(s): F10.920 - Alcohol use, unspecified with intoxication, uncomplicated Condition: Stable Discharge Date/Time: 10/24/18 10:55
== END 2018-10-24 10:55 | disposition left against medical advice (07) ==
LOC: EDUNIT# → ED 10:26
DX: F10.229 Alcohol dependence with intoxication, unspecified (principal)
CPT/HCPCS: 99283; J3411; 80053; 80320; 83690; 83735; 84100; 85025

== ENCOUNTER 2018-10-24 17:47 | Emergency (ER) | payer MEDICAID ==
[2018-10-24 17:55] VITALS: BP 174/105
--- NOTE | 2018-10-24 18:30 | ED Physician Documentation ---
History of Present Illness - Stated complaint Stated Complaint: ETOH - Chief complaint Chief Complaint: General - History obtained from History obtained from: Patient, Family (mom) - History of Present Illness Timing: Today (This is a 58-year-old alcoholic who presents for medical clearance. She says she has a detox bed available in [place] but she was referred here for medical clearance prior to them excepting her. She has no specific complaints. 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 : None HEENT: None Psych: Depression Musculoskeletal: None Derm: None - Past Surgical History Past Surgical History: Yes Ortho: Spine surgery /LEARNING DISABILITIES RESOURCE TEACHER: section - Present Medications Home Medications: Ambulatory Orders Medication Instructions Recorded Confirmed Gabapentin 800 mg PO TID 05/13/17 05/13/17 Venlafaxine HCl [Effexor Xr] 225 mg PO DAILY 05/13/17 05/13/17 chlordiazePOXIDE [Librium] 25 - 50 mg PO Q8H PRN #30 capsule 07/26/18 cloNIDine [Catapres] 0.1 mg PO BID #14 tablet 07/26/18 Knee Scooter 1 unit TD ONCE #1 10/03/18 Benztropine [Cogentin] 1 mg PO 10/11/18 Cetirizine [ZyrTEC] 5 mg PO ONCE 10/11/18 10/11/18 DULoxetine [Cymbalta] 60 mg PO DAILY 10/11/18 10/11/18 Meloxicam 7.5 mg PO 10/11/18 10/11/18 Metoprolol Succinate [Kapspargo 25 mg PO 10/11/18 10/11/18 Sprinkle] Omeprazole 20 mg PO 10/11/18 10/11/18 Ondansetron [Ondansetron Odt] 4 mg PO 10/11/18 10/11/18 Oxazepam 15 mg PO 10/11/18 10/11/18 busPIRone [Buspar] 10 10/11/18 traZODone [Desyrel] 150 mg PO HS 10/11/18 10/11/18 Lorazepam [Ativan] 1 mg PO ONCE #12 tablet 10/24/18 - Allergies Allergies/Adverse Reactions: Allergies Allergy/AdvReac Type Severity Reaction Status Date / Time pregabalin [From Lyrica] Allergy Hives Verified 10/24/18 17:55 adhesive tape AdvReac Rash Verified 10/24/18 17:55 Sulfa (Sulfonamide AdvReac Itching Verified 10/24/18 17:55 Antibiotics) - Social History Does the pt smoke?: No Smoking Status: Never smoker Does the pt drink ETOH?: Yes Does the pt have substance abuse?: No - Immunizations Immunizations are current?: Yes - POLST Patient has POLST: No PD ED PE NORMAL - Vitals Vital signs reviewed: Yes - General General: Alert and oriented X 3, No acute distress - HEENT HEENT: PERRL, EOMI - Neck Neck: Supple, no meningeal sign, No bony TTP - Cardiac Cardiac: RRR, No murmur - Respiratory Respiratory: No respiratory distress, Clear bilaterally - Abdomen Abdomen: Normal bowel sounds, Soft, Non tender - Back Back: No CVA TTP, No spinal TTP - Derm Derm: Normal color, Warm and dry - Extremities Extremities: Other (Left leg is in a boot from her recent fracture) - Neuro Neuro: Alert and oriented X 3, cardiovascular tech 2-12 intact Eye Opening: Spontaneous Motor: Obeys Commands Verbal: Oriented GCS Score: 15 - Psych Psych: Normal mood, Normal affect Results - Vitals Vitals: Vital Signs - 24 hr 10/24/18 17:52 Temperature 36.8 C Heart Rate 99 Respiratory 18 Rate Blood Pressure 174/105 H O2 Saturation 99 Oxygen O2 Source Room air - Labs Labs: Laboratory Tests 10/24/18 10/24/18 18:44 18:44 WBC 4.1 L RBC 3.95 L Hgb 13.3 Hct 40.3 MCV 102.0 H MCH 33.6 H MCHC 33.0 RDW 15.3 H Plt Count 280 MPV 6.6 L Neut # (Auto) 1.8 Lymph # (Auto) 1.9 [place] # (Auto) 0.3 Eos # (Auto) 0.0 Baso # (Auto) 0.0 Absolute Nucleated RBC 0.00 Nucleated RBC % 0.1 Sodium 142 Potassium 3.6 Chloride 96 L Carbon Dioxide 26 Anion Gap 20.0 H BUN 10 Creatinine 0.5 Estimated GFR (MDRD) 128 Glucose 93 Calcium 9.0 Total Bilirubin 0.8 AST 73 H ALT 48 Alkaline Phosphatase 151 H Total Protein 7.1 Albumin 4.5 Globulin 2.6 Albumin/Globulin Ratio 1.7 Lipase 22 Salicylates < 6.0 Acetaminophen < 10 L Ethyl Alcohol 233.4 PD MEDICAL DECISION MAKING - ED course ED course: 58-year-old woman presents needing medical clearance and prescription for alcohol detox. We spoke with scheduled crisis center, they need her blood alcohol to be under 240 which it is, but barely. They also need a prescription for an Ativan taper. Departure - Departure Disposition: 01 Home, Self Care Clinical Impression: Desire for detoxification, Alcoholism Condition: Good Record reviewed to determine appropriate education?: Yes Prescriptions: Lorazepam [Ativan] 1 mg PO ONCE #12 tablet Comments: Do not drink alcohol tonight, go to the detox bed tomorrow morning.
[2018-10-24 18:54] LABS: BASOPHILS % (AUTO) 0.6 %; EOSINOPHILS % (AUTO) 0.3 %; HGB - HEMOGLOBIN 13.3 g/dL (12.0-16.0); LYMPHOCYTES # (AUTO) 1.9 10^3/uL (1.5-3.5); LYMPHOCYTES % (AUTO) 46.6 %; MEAN CORPUSCULAR HEMOGLOBIN 33.6 pg (27.0-31.0); MEAN PLATELET VOLUME 6.6 fL (7.9-10.8); MONOCYTES # (AUTO) 0.3 10^3/uL (0.0-1.0); MONOCYTES % (AUTO) 7.5 %; NEUTROPHILS # (AUTO) 1.8 10^3/uL (1.5-6.6); PLT - PLATELET COUNT 280 10^3/uL (130-450); RED BLOOD COUNT 3.95 10^6/uL (4.20-5.40); RED CELL DISTRIBUTION WIDTH 15.3 % (12.0-15.0); WHITE BLOOD COUNT 4.1 x10^3/uL (4.8-10.8)
[2018-10-24 19:07] LABS: ACETAMINOPHEN < 10 ug/mL (10-30); ALBUMIN 4.5 g/dL (3.2-5.5); ALBUMIN/GLOBULIN RATIO 1.7 (1.0-2.2); ALKALINE PHOSPHATASE 151 IU/L (42-121); ALT ALANINE AMINOTRANSFERASE 48 IU/L (10-60); AST ASPARTATE AMINOTRANSFERASE 73 IU/L (10-42); BILIRUBIN,TOTAL 0.8 mg/dL (0.2-1.0); BUN - BLOOD UREA NITROGEN 10 mg/dL (6-20); CARBON DIOXIDE - CO2 26 mmol/L (21-32); CHLORIDE 96 mmol/L (101-111); CREATININE 0.5 mg/dL (0.4-1.0); GFR - MDRD 128 (>89); GLUCOSE 93 mg/dL (70-100); LIPASE 22 U/L (22-51); SALICYLATE < 6.0 mg/dL; SODIUM 142 mmol/L (135-145); TOTAL PROTEIN 7.1 g/dL (6.7-8.2)
== END 2018-10-24 19:34 | disposition home or self-care (01) ==
LOC: ED 17:47
DX: F10.229 Alcohol dependence with intoxication, unspecified (principal)
CPT/HCPCS: 36415; 80053; 80307; 80320; 80329; 83690; 85025; 99283

== ENCOUNTER 2018-11-11 14:48 | Outpatient (CLI) | payer MEDICAID | END 2018-11-11 14:49 | disposition critical access hospital (66) | LOC: EMS 14:48 | PROVIDERS: ATTEND Surgery | DX: S81.011A Laceration without foreign body, right knee, initial encounter (principal); W19.XXXA Unspecified fall, initial encounter | CPT/HCPCS: A0425; A0429 ==

== ENCOUNTER 2018-11-11 14:51 | Emergency (ER) | payer MEDICAID ==
--- NOTE | 2018-11-11 15:16 | ED Physician Documentation ---
PD HPI Fall - Stated complaint Stated Complaint: GLF - History obtained from History obtained from: Patient - History of Present Illness Mechanism of injury: Unknown - Additional information Additional information: This is a 58-year-old woman who presents by ambulance with complaints that she was found in a chair with half a bottle of vodka next to her. Patient herself will not provide any history for me at all. There is a strong odor of alcohol. The EMS provided some history but then the father arrived stating that the patient has a "couple" of leg fractures which she was placed in a flexible cast for and sent to an orthopedist. She also has a vice president diversity but name of Codey with [facility] who has been assigned to her and when he went to check on her today she would not answer the door. He got a hold of the father who came over from [facility] and open the door for him. They found the patient sitting in a chair with open bottle of vodka next to her. She was crying and would not an swer any questions. She was noted to have an abrasion on her knee so they called the ambulance. She lives alone. She does not work. She was in alcohol rehab back in August of this year for 30 days and despite the fact that it was supposed to be a 90-day program she walked out after 30 days. Dad is not sure when she had her last tetanus vaccine. He did tell me that he would come get her and take her home tonight if she is capable of walking at that time. Review of Systems Unable to obtain: Intoxicated PD PAST MEDICAL HISTORY - Past Medical History Cardiovascular: High cholesterol Respiratory: None Neuro: None Endocrine/Autoimmune: None GI: None PLASTER MAKER: None : None HEENT: None Psych: Depression Musculoskeletal: None Derm: None - Past Surgical History Past Surgical History: Yes Ortho: Spine surgery /PLASTER MAKER: section - Present Medications Home Medications: Ambulatory Orders Medication Instructions Recorded Confirmed RX: Gabapentin 800 mg PO TID 05/13/17 11/11/18 RX: cloNIDine [Catapres] 0.1 mg PO BID #14 tablet 07/26/18 11/11/18 DULoxetine [Cymbalta] 60 mg PO BID 10/11/18 11/11/18 Metoprolol Succinate [Kapspargo 25 mg PO DAILY PM 10/11/18 11/11/18 Sprinkle] RX: Meloxicam 7.5 mg PO BID PRN 10/11/18 11/11/18 RX: busPIRone [Buspar] 10 mg PO BID 10/11/18 11/11/18 traZODone [Desyrel] 150 mg PO DAILY PM 10/11/18 11/11/18 RX: Venlafaxine [Effexor] 75 mg PO TID 11/11/18 11/11/18 - Allergies Allergies/Adverse Reactions: Allergies Allergy/AdvReac Type Severity Reaction Status Date / Time pregabalin [From Lyrica] Allergy Hives Verified 10/24/18 17:55 adhesive tape AdvReac Rash Verified 10/24/18 17:55 Sulfa (Sulfonamide AdvReac Itching Verified 10/24/18 17:55 Antibiotics) - Social History Does the pt smoke?: No Smoking Status: Never smoker Does the pt drink ETOH?: Yes Does the pt have substance abuse?: No - Immunizations Immunizations are current?: Yes - POLST Patient has POLST: No PD ED PE NORMAL - Vitals Vital signs reviewed: Yes (Patient was lying on her side curled up into a ball with her hand over her ) - General General: No acute distress, Well developed/nourished - HEENT HEENT: Atraumatic, PERRL, EOMI, Moist mucous membranes - Cardiac Cardiac: RRR, No murmur - Respiratory Respiratory: No respiratory distress, Clear bilaterally - Abdomen Abdomen: Normal bowel sounds, Soft, Non tender - Derm Derm: Normal color, Warm and dry, Other (Abrasion over the right patella without swelling.) - Extremities Extremities: No deformity, Other (Even though there is an abrasion over the right knee. There is no bruising or swelling. She has free range of motion and does not appear to have any pain with palpation to the knee.) - Neuro Neuro: Other (There are no gross obvious deficits. The patient is clearly intoxicated.) Results - Vitals Vitals: Vital Signs - 24 hr 11/11/18 11/11/18 14:54 18:12 Temperature 36.4 C L Heart Rate 73 81 Respiratory 18 17 Rate Blood Pressure 104/56 L 109/54 L O2 Saturation 98 97 Oxygen O2 Source Room air - Labs Labs: Laboratory Tests 11/11/18 11/11/18 15:32 15:32 WBC 4.0 L RBC 4.13 L Hgb 14.0 Hct 41.8 MCV 101.1 H MCH 33.8 H MCHC 33.4 RDW 14.7 Plt Count 241 MPV 7.2 L Neut # (Auto) 1.9 Lymph # (Auto) 2.0 [place] # (Auto) 0.1 Eos # (Auto) 0.0 Baso # (Auto) 0.0 Absolute Nucleated RBC 0.00 Nucleated RBC % 0.0 Sodium 146 H Potassium 3.5 Chloride 105 Carbon Dioxide 25 Anion Gap 16.0 H BUN 14 Creatinine 0.5 Estimated GFR (MDRD) 128 Glucose 89 Calcium 9.1 Magnesium 2.1 Total Bilirubin 0.8 AST 26 ALT 19 Alkaline Phosphatase 141 H Total Protein 7.6 Albumin 4.7 Globulin 2.9 Albumin/Globulin Ratio 1.6 Lipase 81 H Ethyl Alcohol 430.1 PD MEDICAL DECISION MAKING - ED course Complexity details: d/w patient ED course: Patient slept here in the ED. She woke up and ambulated to the bathroom. She stated that she was not suicidal. She is hungry and doesn't want our food here because it is 'yucky'. She wants to go home to be with her cat. We called her father, but before he arrived, she left the department to walk home. Departure - Departure Disposition: 01 Home, Self Care Clinical Impression: Alcohol intoxication Condition: Good Instructions: ED Alcohol Intoxication Follow-Up: [facility] [Provider Group] Comments: You are given a pack of community resources if you want help with your alcohol consumption. Wear the boot that you have been prescribed for the foot fracture so that it will heal. Stop drinking. Discharge Date/Time: 11/11/18 18:56
[2018-11-11] MEDS ORDERED: FOLIC ACID INJ 1 MG, THIAMINE INJ 100 MG, MAGNESIUM SULFATE 2 GM, MULTIVITAMIN 10 ML in... IV STA ×5 (15:21)
[2018-11-11] MEDS ORDERED: SODIUM CHLORIDE 0.9% 1,000 ML IV ONE (15:22)
[2018-11-11] MEDS ORDERED: TETANUS/DIPHTHERIA/PERTUSSIS 0.5 ML SYRINGE IM ONE (15:26)
[2018-11-11] MEDS ORDERED: BACITRACIN OINT TOP STA (15:27)
[2018-11-11 15:35] LABS: BASOPHILS % (AUTO) 1.2 %; LYMPHOCYTES % (AUTO) 49.3 %; MEAN CORPUSCULAR HEMOGLOBIN 33.8 pg (27.0-31.0); MEAN CORPUSCULAR HGB CONC 33.4 g/dL (32.0-36.0); MEAN CORPUSCULAR VOLUME 101.1 fL (81.0-99.0); MEAN PLATELET VOLUME 7.2 fL (7.9-10.8); MONOCYTES # (AUTO) 0.1 10^3/uL (0.0-1.0); MONOCYTES % (AUTO) 2.5 %; NEUTROPHILS # (AUTO) 1.9 10^3/uL (1.5-6.6); PLT - PLATELET COUNT 241 10^3/uL (130-450); RED BLOOD COUNT 4.13 10^6/uL (4.20-5.40); RED CELL DISTRIBUTION WIDTH 14.7 % (12.0-15.0)
[2018-11-11 15:52] LABS: ALBUMIN 4.7 g/dL (3.2-5.5); ALBUMIN/GLOBULIN RATIO 1.6 (1.0-2.2); BILIRUBIN,TOTAL 0.8 mg/dL (0.2-1.0); CALCIUM 9.1 mg/dL (8.5-10.3); CREATININE 0.5 mg/dL (0.4-1.0); MAGNESIUM 2.1 mg/dL (1.7-2.8); TOTAL PROTEIN 7.6 g/dL (6.7-8.2)
[2018-11-11 18:13] VITALS: BP 109/54
== END 2018-11-11 18:56 | disposition home or self-care (01) ==
LOC: EDUNIT# → ED 14:51
DX: F10.920 Alcohol use, unspecified with intoxication, uncomplicated (principal); S80.211A Abrasion, right knee, initial encounter; X58.XXXA Exposure to other specified factors, initial encounter; Z23 Encounter for immunization
CPT/HCPCS: 36415; 80053; 80320; 83690; 83735; 85025; 90471; 90715; 96361; 96374; 99283; 99284; A9270; J3411

== ENCOUNTER 2018-12-09 15:17 | Outpatient (CLI) | payer MEDICAID | END 2018-12-09 15:18 | disposition EMS.NT | LOC: EMS 15:17 | PROVIDERS: ATTEND Surgery | DX: Z03.89 Encounter for observation for other suspected diseases and conditions ruled out (principal) ==

== ENCOUNTER 2019-01-05 21:15 | Emergency (ER) | payer MEDICAID ==
--- NOTE | 2019-01-05 21:27 | ED Physician Documentation ---
PD HPI MHE - Stated complaint Stated Complaint: ETOH - Chief complaint Chief Complaint: MHE - History obtained from History obtained from: Patient, Police - History of Present Illness Primary symptom: Suicidal ideation Timing - onset: Today Pain level max: 0 Pain level now: 0 Contributing factors: Substance abuse - ETOH Recently seen: Not recently seen - Additional information Additional information: 58-year-old female presents to the emergency department brought in by police for lying down in the [place] [address]. She states that she wanted to kill herself. She states that she was hoping a car would run her over. Review of Systems Ten Systems: 10 systems reviewed and negative Constitutional: denies: Fever, Chills Cardiac: denies: Chest pain / pressure, Palpitations Respiratory: denies: Dyspnea, Cough GI: denies: Vomiting : denies: Dysuria Skin: denies: Rash Musculoskeletal: denies: Neck pain, Back pain Neurologic: denies: Headache Psychiatric: reports: Depressed, Suicidal. 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 : None HEENT: None Psych: Depression Musculoskeletal: None Derm: None - Past Surgical History Past Surgical History: Yes Ortho: Spine surgery /TIMBER SELECTOR: section - Present Medications Home Medications: Ambulatory Orders Medication Instructions Recorded Confirmed Gabapentin 800 mg PO TID 05/13/17 11/11/18 cloNIDine [Catapres] 0.1 mg PO BID #14 tablet 07/26/18 11/11/18 DULoxetine [Cymbalta] 60 mg PO BID 10/11/18 11/11/18 Meloxicam 7.5 mg PO BID PRN 10/11/18 11/11/18 Metoprolol Succinate [Kapspargo 25 mg PO DAILY PM 10/11/18 11/11/18 Sprinkle] busPIRone [Buspar] 10 mg PO BID 10/11/18 11/11/18 traZODone [Desyrel] 150 mg PO DAILY PM 10/11/18 11/11/18 Venlafaxine [Effexor] 75 mg PO TID 11/11/18 11/11/18 - Allergies Allergies/Adverse Reactions: Allergies Allergy/AdvReac Type Severity Reaction Status Date / Time pregabalin [From Lyrica] Allergy Hives Verified 01/05/19 21:18 adhesive tape AdvReac Rash Verified 01/05/19 21:18 Sulfa (Sulfonamide AdvReac Itching Verified 01/05/19 21:18 Antibiotics) - Social History Does the pt smoke?: No Smoking Status: Never smoker Does the pt drink ETOH?: Yes Does the pt have substance abuse?: No - Immunizations Immunizations are current?: Yes - POLST Patient has POLST: No PD ED PE NORMAL - Vitals Vital signs reviewed: Yes - General General: Alert and oriented X 3, No acute distress, Well developed/nourished - HEENT HEENT: PERRL, Moist mucous membranes - Neck Neck: Supple, no meningeal sign - Cardiac Cardiac: RRR, Strong equal pulses - Respiratory Respiratory: No respiratory distress, Clear bilaterally - Abdomen Abdomen: Soft, Non tender, Non distended - Derm Derm: Warm and dry - Extremities Extremities: Other (L foot and ankle in a walking boot. o/w normal exam.) - Neuro Neuro: Alert and oriented X 3 - Psych Psych: Normal mood, Normal affect Results - Vitals Vitals: Vital Signs - 24 hr 01/05/19 21:15 Temperature 36.0 C L Heart Rate 85 Respiratory 18 Rate Blood Pressure 144/88 H O2 Saturation 97 Oxygen O2 Source Room air - Labs Labs: Laboratory Tests 01/05/19 01/05/19 01/05/19 21:34 21:34 21:34 WBC 4.1 L RBC 3.64 L Hgb 12.2 Hct 38.9 MCV 106.9 H MCH 33.5 H MCHC 31.4 L RDW 15.9 H Plt Count 116 L MPV 9.1 Neut # (Auto) 1.3 L Lymph # (Auto) 2.4 [place] # (Auto) 0.3 Eos # (Auto) 0.1 Baso # (Auto) 0.0 Absolute Nucleated RBC 0.00 Nucleated RBC % 0.0 Sodium 149 H Potassium 4.4 Chloride 105 Carbon Dioxide 28 Anion Gap 16.0 H BUN 16 Creatinine 0.5 Estimated GFR (MDRD) 128 Glucose 89 Calcium 8.8 Total Bilirubin 0.5 AST 69 H ALT 42 Alkaline Phosphatase 125 H Total Protein 6.9 Albumin 4.0 Globulin 2.9 Albumin/Globulin Ratio 1.4 Lipase 32 TSH 0.44 Urine Color Urine Clarity Urine pH Ur Specific [place] Urine Protein Urine Glucose (UA) Urine Ketones Urine Occult Blood Urine Nitrite Urine Bilirubin Urine Urobilinogen Ur Leukocyte Esterase Urine RBC Urine WBC Ur Squamous Epith Cells Urine Bacteria Ur Microscopic Review Urine Culture Comments Urine HCG, Qual Salicylates < 6.0 Urine Opiates Screen Ur Oxycodone Screen Urine Methadone Screen Ur Propoxyphene Screen Acetaminophen < 10 L Ur Barbiturates Screen Ur Tricyclics Screen Ur Phencyclidine Scrn Ur Amphetamine Screen U Methamphetamines Scrn U Benzodiazepines Scrn Urine Cocaine Screen U Cannabinoids Screen Ethyl Alcohol 436.9 01/05/19 01/05/19 23:05 23:05 WBC RBC Hgb Hct MCV MCH MCHC RDW Plt Count MPV Neut # (Auto) Lymph # (Auto) [place] # (Auto) Eos # (Auto) Baso # (Auto) Absolute Nucleated RBC Nucleated RBC % Sodium Potassium Chloride Carbon Dioxide Anion Gap BUN Creatinine Estimated GFR (MDRD) Glucose Calcium Total Bilirubin AST ALT Alkaline Phosphatase Total Protein Albumin Globulin Albumin/Globulin Ratio Lipase TSH Urine Color ORANGE Urine Clarity CLEAR Urine pH 5.5 Ur Specific [place] <=1.005 Urine Protein Urine Glucose (UA) 100 H Urine Ketones NEGATIVE Urine Occult Blood TRACE-LYSED Urine Nitrite POSITIVE H Urine Bilirubin NEGATIVE Urine Urobilinogen 1 (NORMAL) Ur Leukocyte Esterase MODERATE H Urine RBC 0-5 Urine WBC 11-25 H Ur Squamous Epith Cells RARE Squamous Urine Bacteria Moderate H Ur Microscopic Review INDICATED Urine Culture Comments INDICATED Urine HCG, Qual NEGATIVE Salicylates Urine Opiates Screen NEGATIVE Ur Oxycodone Screen NEGATIVE Urine Methadone Screen NEGATIVE Ur Propoxyphene Screen NEGATIVE Acetaminophen Ur Barbiturates Screen NEGATIVE Ur Tricyclics Screen NEGATIVE Ur Phencyclidine Scrn NEGATIVE Ur Amphetamine Screen NEGATIVE U Methamphetamines Scrn NEGATIVE U Benzodiazepines Scrn NEGATIVE Urine Cocaine Screen NEGATIVE U Cannabinoids Screen NEGATIVE Ethyl Alcohol PD MEDICAL DECISION MAKING - ED course Complexity details: reviewed old records, reviewed results, considered differential, d/w patient ED course: 58-year-old female presents to the emergency department with alcohol intoxication and suicidal ideation. She is placed on an involuntary hold by police. She will be allowed to sober in the emergency department overnight. Will need treatment for her UTI. Will also need to be reassessed in the morning to see if she is still suicidal. Patient signed out to oncoming emergency department physician. This document was made in part using voice recognition software. While efforts are made to proofread this document, sound alike and grammatical errors may occur. Departure - Departure Clinical Impression: Hypernatremia, Suicidal ideation UTI (urinary tract infection) Qualifiers: Urinary tract infection type: acute cystitis Hematuria presence: without hematuria Qualified Code(s): N30.00 - Acute cystitis without hematuria Alcohol intoxication Qualifiers: Complication of substance-induced condition: uncomplicated Qualified Code(s): F10.920 - Alcohol use, unspecified with intoxication, uncomplicated Condition: Stable
[2019-01-05 21:41] LABS: BASOPHILS % (AUTO) 0.5 %; EOSINOPHILS # (AUTO) 0.1 10^3/uL (0.0-0.7); HGB - HEMOGLOBIN 12.2 g/dL (12.0-16.0); LYMPHOCYTES # (AUTO) 2.4 10^3/uL (1.5-3.5); MEAN CORPUSCULAR HEMOGLOBIN 33.5 pg (27.0-31.0); MEAN CORPUSCULAR HGB CONC 31.4 g/dL (32.0-36.0); MEAN CORPUSCULAR VOLUME 106.9 fL (81.0-99.0); MEAN PLATELET VOLUME 9.1 fL (7.9-10.8); MONOCYTES # (AUTO) 0.3 10^3/uL (0.0-1.0); MONOCYTES % (AUTO) 7.4 %; NEUTROPHILS # (AUTO) 1.3 10^3/uL (1.5-6.6); NEUTROPHILS % (AUTO) 30.9 %; PLT - PLATELET COUNT 116 10^3/uL (130-450); RED BLOOD COUNT 3.64 10^6/uL (4.20-5.40); RED CELL DISTRIBUTION WIDTH 15.9 % (12.0-15.0); WHITE BLOOD COUNT 4.1 x10^3/uL (4.8-10.8)
[2019-01-05 21:58] LABS: ACETAMINOPHEN < 10 ug/mL (10-30); ALBUMIN/GLOBULIN RATIO 1.4 (1.0-2.2); ALKALINE PHOSPHATASE 125 IU/L (42-121); ALT ALANINE AMINOTRANSFERASE 42 IU/L (10-60); AST ASPARTATE AMINOTRANSFERASE 69 IU/L (10-42); BILIRUBIN,TOTAL 0.5 mg/dL (0.2-1.0); BUN - BLOOD UREA NITROGEN 16 mg/dL (6-20); CALCIUM 8.8 mg/dL (8.5-10.3); CARBON DIOXIDE - CO2 28 mmol/L (21-32); CHLORIDE 105 mmol/L (101-111); CREATININE 0.5 mg/dL (0.4-1.0); GFR - MDRD 128 (>89); GLUCOSE 89 mg/dL (70-100); LIPASE 32 U/L (22-51); SALICYLATE < 6.0 mg/dL; SODIUM 149 mmol/L (135-145); TOTAL PROTEIN 6.9 g/dL (6.7-8.2)
[2019-01-05 23:12] LABS: MUDS CUTOFF CONCENTRATIONS CUTOFF CONC BELOW:
[2019-01-05] MEDS ORDERED: OLANZapine 10 MG VIAL IM STA (23:14)
[2019-01-05 23:17] LABS: BILIRUBIN,URINE NEGATIVE (NEGATIVE); KETONES,URINE (UA) NEGATIVE (NEGATIVE); LEUKOCYTE ESTERASE, URINE MODERATE (NEGATIVE); NITRITE,URINE POSITIVE (NEGATIVE); PH,URINE 5.5 PH (5.0-7.5); UROBILINOGEN,URINE 1 (NORMAL) E.U./dL (NORMAL)
[2019-01-05 23:28] LABS: CLARITY,URINE CLEAR (CLEAR)
[2019-01-05 23:29] LABS: HCG UR QUAL NEGATIVE
[2019-01-05 23:31] LABS: GLUCOSE, URINE (UA) 100 mg/dL (NEGATIVE); OCCULT BLOOD,URINE TRACE-LYSED (NEGATIVE)
[2019-01-05 23:32] LABS: BACTERIA,URINE Moderate /HPF (None Seen); RBC,URINE 0-5 /HPF (0-5); SQUAMOUS EPITHELIAL CELL,UR RARE Squamous (<= Few)
[2019-01-05 23:33] LABS: AMPHETAMINE SCREEN,URINE NEGATIVE (NEGATIVE); BENZODIAZEPINES SCREEN, URINE NEGATIVE (NEGATIVE); COCAINE SCREEN URINE NEGATIVE (NEGATIVE); METHADONE SCREEN, URINE NEGATIVE (NEGATIVE); METHAMPHETAMINES SCREEN, URINE NEGATIVE (NEGATIVE); OPIATE SCREEN, URINE NEGATIVE (NEGATIVE); OXYCODONE SCREEN, URINE NEGATIVE (NEGATIVE); PROPOXYPHENE SCREEN, URINE NEGATIVE (NEGATIVE); TRICYCLIC ANTIDEPRESSANT,URINE NEGATIVE (NEGATIVE)
[2019-01-06] MEDS ORDERED: LORazepam 1 MG TABLET PO STA (11:52)
--- NOTE | 2019-01-06 11:54 | ED Physician Documentation ---
ED Addendum - Addendum Addendum: 01/06/19 11:53 The patient is slept through the night. She wakes this morning and has some snack to eat. She denies any suicidal ideation and does not remember feeling that way last night while intoxicated. Social work came and talk with her. The patient did not want any acute detox. She states she will attend AA meetings and not drink. I can provide a prescription for medications to help with withdrawal if needed. She denies any suicidality at this time. Patient is deemed safe for discharge at low risk for self-harm.
[2019-01-06 12:47] VITALS: BP 141/103
== END 2019-01-06 12:52 | disposition home or self-care (01) ==
LOC: ED 21:15
DX: F32.9 Major depressive disorder, single episode, unspecified (principal); R45.851 Suicidal ideations; F10.129 Alcohol abuse with intoxication, unspecified; E87.0 Hyperosmolality and hypernatremia; N30.00 Acute cystitis without hematuria
CPT/HCPCS: 36415; 80053; 80306; 80307; 80320; 80329; 81001; 81025; 83690; 84443; 85025; 87086; 87181; 96372; 99284; J8499; 81003

== ENCOUNTER 2019-02-14 23:46 | Emergency (ER) | payer MEDICAID ==
[2019-02-14 23:53] VITALS: BP 111/86
--- NOTE | 2019-02-15 00:32 | ED Physician Documentation ---
PD HPI HEAD INJURY - Stated complaint Stated Complaint: CHIN, TONGUE LACS - Chief complaint Chief Complaint: Laceration - History obtained from History obtained from: Patient - History of Present Illness Mechanism of head injury: Fell Where head injury occurred: Home Timing - onset: How many hours ago (approximately 1 hour COPY DIRECTOR) Location of injury: Other (chin, tongue) Associated symptoms: No: LOC Contributing factors: No: Anticoagulated - Additional information Additional information: patient says she rolled out of bed while asleep, struck chin on ground causing chin laceration as well as causing her to biter her tongue, sustained tongue lacerations. Denies LOC Review of Systems Eyes: denies: Loss of vision, Decreased vision Throat: denies: Dental pain / toothache Skin: reports: Laceration (s) Musculoskeletal: denies: Neck pain, Back pain Neurologic: denies: Altered mental status, Headache, LOC PD PAST MEDICAL HISTORY - Past Medical History Past Medical History: No Cardiovascular: High cholesterol Respiratory: None Neuro: None Endocrine/Autoimmune: None GI: None HHAS: None : None HEENT: None Psych: Depression Musculoskeletal: None Derm: None - Past Surgical History Past Surgical History: Yes Ortho: Spine surgery /HHAS: section - Present Medications Home Medications: Ambulatory Orders Medication Instructions Recorded Confirmed Gabapentin 800 mg PO TID 05/13/17 11/11/18 cloNIDine [Catapres] 0.1 mg PO BID #14 tablet 07/26/18 11/11/18 DULoxetine [Cymbalta] 60 mg PO BID 10/11/18 11/11/18 Meloxicam 7.5 mg PO BID PRN 10/11/18 11/11/18 Metoprolol Succinate [Kapspargo 25 mg PO DAILY PM 10/11/18 11/11/18 Sprinkle] busPIRone [Buspar] 10 mg PO BID 10/11/18 11/11/18 traZODone [Desyrel] 150 mg PO DAILY PM 10/11/18 11/11/18 Venlafaxine [Effexor] 75 mg PO TID 11/11/18 11/11/18 Cephalexin [Keflex] 500 mg PO TID #21 capsule 01/06/19 LORazepam [Ativan] 1 mg PO Q6H PRN #25 tablet 01/06/19 Ondansetron Odt [Zofran] 4 mg TL Q6H PRN #10 tablet 01/06/19 - Allergies Allergies/Adverse Reactions: Allergies Allergy/AdvReac Type Severity Reaction Status Date / Time pregabalin [From Lyrica] Allergy Hives Verified 02/14/19 23:53 adhesive tape AdvReac Rash Verified 02/14/19 23:53 Sulfa (Sulfonamide AdvReac Itching Verified 02/14/19 23:53 Antibiotics) - Social History Does the pt smoke?: No Smoking Status: Never smoker Does the pt drink ETOH?: Yes Does the pt have substance abuse?: No - Immunizations Immunizations are current?: Yes - POLST Patient has POLST: No PD ED PE NORMAL - Vitals Vital signs reviewed: Yes - General General: Alert and oriented X 3, No acute distress, Well developed/nourished - HEENT HEENT: PERRL, EOMI - Neck Neck: No bony TTP - Extremities Extremities: No deformity, No tenderness to palpate, Normal ROM s pain - Neuro Neuro: Alert and oriented X 3, machine oiler 2-12 intact PD ED PE EXPANDED - HEENT HEENT Visual: 1 - laceration (2 cm length laceration with adipose tissue visible. no bony tenderness) 2 - laceration 3 - laceration Results - Vitals Vitals: Vital Signs - 24 hr 02/14/19 23:48 Temperature 36.2 C L Heart Rate 79 Respiratory 18 Rate Blood Pressure 111/86 H O2 Saturation 94 Oxygen O2 Source Room air PD MEDICAL DECISION MAKING - ED course Complexity details: reviewed old records, considered differential, d/w patient ED course: tongue lacerations appear to be too small to benefit from repair, but the chin laceration is deep and wound edges have significant tension that pulls wound edges apart at rest. I thus recommended sutures, but offered to apply tissue adhesive. Patient agrees with my recommendation to suture the wound. Unfortunately, patient left before I returned to the room to suture the wound. RN informs me that patient expressed that she was leaving due to frustration with waiting time Departure - Departure Disposition: ED Elope Clinical Impression: Chin laceration Qualifiers: Encounter type: initial encounter Qualified Code(s): S01.81XA - Laceration without foreign body of other part of head, initial encounter Tongue laceration Qualifiers: Encounter type: initial encounter Qualified Code(s): S01.512A - Laceration without foreign body of oral cavity, initial encounter Discharge Date/Time: 02/15/19 01:13
[2019-02-15] MEDS: LIDOCAINE 1% 2 ML VIAL SUBQ STA ×2 (00:56→01:11)
== END 2019-02-15 01:13 | disposition left against medical advice (07) ==
LOC: ED 23:46
DX: S01.81XA Laceration without foreign body of other part of head, initial encounter (principal); S01.512A Laceration without foreign body of oral cavity, initial encounter; W06.XXXA Fall from bed, initial encounter; Y92.003 Bedroom of unspecified non-institutional (private) residence as the place of occurrence of the external cause; Z53.20 Procedure and treatment not carried out because of patient's decision for unspecified reasons
CPT/HCPCS: 99281; 99282

== ENCOUNTER 2019-02-26 16:03 | Outpatient (CLI) | payer MEDICAID | END 2019-02-26 16:04 | disposition critical access hospital (66) | LOC: EMS 16:03 | PROVIDERS: ATTEND Surgery | DX: M54.2 Cervicalgia (principal) | CPT/HCPCS: A0425; A0429; A0999 ==

== ENCOUNTER 2019-02-26 16:06 | Emergency (ER) | payer MEDICAID ==
[2019-02-26] MEDS ORDERED: SODIUM CHLORIDE 0.9% 1,000 ML IV ONE (16:11)
[2019-02-26] MEDS ORDERED: THIAMINE INJ 100 MG in SODIUM CHLORIDE 0.9% 50 ML IV STA (16:11)
--- NOTE | 2019-02-26 16:14 | ED Physician Documentation ---
History of Present Illness - Stated complaint Stated Complaint: AMS - History obtained from History obtained from: Patient, EMS - History of Present Illness Timing: Today (58-year-old woman with history of alcoholism was found down backyard just nearby. Reportedly they thought she was so CPR was begun and then she became responsive and push people away. She admits to drinking today, but is clearly intoxicated and a poor historian. 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 : None HEENT: None Psych: Depression Musculoskeletal: None Derm: None - Past Surgical History Past Surgical History: Yes Ortho: Spine surgery /BEAD CUTTER: section - Present Medications Home Medications: Ambulatory Orders Medication Instructions Recorded Confirmed Gabapentin 800 mg PO TID 05/13/17 11/11/18 cloNIDine [Catapres] 0.1 mg PO BID #14 tablet 07/26/18 11/11/18 DULoxetine [Cymbalta] 60 mg PO BID 10/11/18 11/11/18 Meloxicam 7.5 mg PO BID PRN 10/11/18 11/11/18 Metoprolol Succinate [Kapspargo 25 mg PO DAILY PM 10/11/18 11/11/18 Sprinkle] busPIRone [Buspar] 10 mg PO BID 10/11/18 11/11/18 traZODone [Desyrel] 150 mg PO DAILY PM 10/11/18 11/11/18 Venlafaxine [Effexor] 75 mg PO TID 11/11/18 11/11/18 Cephalexin [Keflex] 500 mg PO TID #21 capsule 01/06/19 LORazepam [Ativan] 1 mg PO Q6H PRN #25 tablet 01/06/19 Ondansetron Odt [Zofran] 4 mg TL Q6H PRN #10 tablet 01/06/19 - Allergies Allergies/Adverse Reactions: Allergies Allergy/AdvReac Type Severity Reaction Status Date / Time pregabalin [From Lyrica] Allergy Hives Verified 02/26/19 16:13 adhesive tape AdvReac Rash Verified 02/26/19 16:13 Sulfa (Sulfonamide AdvReac Itching Verified 02/26/19 16:13 Antibiotics) - Social History Does the pt smoke?: No Smoking Status: Never smoker Does the pt drink ETOH?: Yes Does the pt have substance abuse?: No - Immunizations Immunizations are current?: Yes - POLST Patient has POLST: No PD ED PE NORMAL - Vitals Vital signs reviewed: Yes - General General: Other (She is alert and oriented to person. She says she wants to go to detox. She does not remember when she was last in detox. She knows she is in the hospital.) - HEENT HEENT: PERRL (With dilated pupils), EOMI (With nystagmus) - Neck Neck: No bony TTP, Other (Maintained in a c-collar pending imaging given intoxicated status and unclear mechanism of injury.) - Cardiac Cardiac: RRR, No murmur - Respiratory Respiratory: No respiratory distress, Clear bilaterally - Abdomen Abdomen: Soft, Non tender - Back Back: No CVA TTP, No spinal TTP - Derm Derm: Normal color, Warm and dry - Extremities Extremities: No deformity, No tenderness to palpate, Normal ROM s pain, No edema, No calf tenderness / cord - Neuro Neuro: No motor deficit, No sensory deficit Eye Opening: Spontaneous Motor: Obeys Commands Verbal: Confused GCS Score: 14 Results - Vitals Vitals: Vital Signs - 24 hr 02/26/19 02/26/19 02/26/19 16:07 16:51 17:17 Temperature 36.5 C Heart Rate 93 85 91 Respiratory 17 16 16 Rate Blood Pressure 135/85 H 117/77 114/67 O2 Saturation 97 96 96 Oxygen O2 Source Room air - Labs Labs: Laboratory Tests 02/26/19 02/26/19 16:25 16:25 WBC 3.5 L RBC 3.43 L Hgb 12.3 Hct 37.2 MCV 108.5 H MCH 35.9 H MCHC 33.1 RDW 15.1 H Plt Count 155 MPV 9.2 Neut # (Auto) 1.0 L Lymph # (Auto) 2.2 [place] # (Auto) 0.3 Eos # (Auto) 0.0 Baso # (Auto) 0.0 Absolute Nucleated RBC 0.00 Nucleated RBC % 0.0 Sodium 146 H Potassium 3.5 Chloride 106 Carbon Dioxide 28 Anion Gap 12.0 BUN 16 Creatinine 0.5 Estimated GFR (MDRD) 128 Glucose 88 Calcium 8.5 Total Bilirubin 0.9 AST 88 H ALT 76 H Alkaline Phosphatase 124 H Total Protein 7.3 Albumin 3.8 Globulin 3.5 Albumin/Globulin Ratio 1.1 Lipase 24 Ethyl Alcohol 432.7 - Rads (name of study) CT Head/Cspine, 1v CXR Radiology: EMP read contemporaneously (NAD) PD MEDICAL DECISION MAKING - ED course ED course: 58-year-old woman presents with alcohol intoxication, potential injury. Relevant imaging was negative. Initially expressed interest in detox but after about an hour demanded to leave. Her cooperative and apparently sober significant other was at the bedside and is taking her home. They both understand she is not being discharged because of the height of her alcohol level, she is eloping. Departure - Departure Disposition: ED Elope Clinical Impression: Alcoholism Alcohol intoxication Qualifiers: Complication of substance-induced condition: uncomplicated Qualified Code(s): F10.920 - Alcohol use, unspecified with intoxication, uncomplicated Head injury Qualifiers: Encounter type: initial encounter Qualified Code(s): S09.90XA - Unspecified injury of head, initial encounter
[2019-02-26 16:29] LABS: BASOPHILS % (AUTO) 0.8 %; EOSINOPHILS % (AUTO) 0.3 %; HGB - HEMOGLOBIN 12.3 g/dL (12.0-16.0); LYMPHOCYTES # (AUTO) 2.2 10^3/uL (1.5-3.5); LYMPHOCYTES % (AUTO) 61.2 %; MEAN CORPUSCULAR HEMOGLOBIN 35.9 pg (27.0-31.0); MEAN CORPUSCULAR HGB CONC 33.1 g/dL (32.0-36.0); MEAN CORPUSCULAR VOLUME 108.5 fL (81.0-99.0); MEAN PLATELET VOLUME 9.2 fL (7.9-10.8); MONOCYTES # (AUTO) 0.3 10^3/uL (0.0-1.0); MONOCYTES % (AUTO) 8.5 %; NEUTROPHILS % (AUTO) 28.9 %; PLT - PLATELET COUNT 155 10^3/uL (130-450); RED BLOOD COUNT 3.43 10^6/uL (4.20-5.40); RED CELL DISTRIBUTION WIDTH 15.1 % (12.0-15.0); WHITE BLOOD COUNT 3.5 x10^3/uL (4.8-10.8)
[2019-02-26 16:41] LABS: ALBUMIN 3.8 g/dL (3.2-5.5); ALBUMIN/GLOBULIN RATIO 1.1 (1.0-2.2); BILIRUBIN,TOTAL 0.9 mg/dL (0.2-1.0); CALCIUM 8.5 mg/dL (8.5-10.3); CREATININE 0.5 mg/dL (0.4-1.0); TOTAL PROTEIN 7.3 g/dL (6.7-8.2)
--- NOTE | 2019-02-26 16:52 | XRAY Report ---
Reason: post cpr Procedure Date: 02/26/2019 Accession Number: [id number] / [id number] Procedure: XR - Chest 1 View X-Ray CPT Code: 39956 FULL RESULT: EXAM: CHEST RADIOGRAPHY EXAM DATE: 02/26/2019 04:26 PM. CLINICAL HISTORY: Post cpr. COMPARISON: None. TECHNIQUE: 1 view. FINDINGS: Lungs/Pleura: No focal opacities evident. No gross pleural effusion or pneumothorax on this supine view. Mediastinum: Within exam limitations, the cardiomediastinal contour is normal. Other: None. IMPRESSION: No convincing acute cardiopulmonary abnormality. RADIA
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
[2019-02-26 17:17] VITALS: BP 114/67
== END 2019-02-26 17:13 | disposition left against medical advice (07) ==
LOC: EDUNIT# → ED 16:06
DX: F10.229 Alcohol dependence with intoxication, unspecified (principal); S09.90XA Unspecified injury of head, initial encounter; W19.XXXA Unspecified fall, initial encounter; Y92.007 Garden or yard of unspecified non-institutional (private) residence as the place of occurrence of the external cause; M47.812 Spondylosis without myelopathy or radiculopathy, cervical region
CPT/HCPCS: 36415; 70450; 71045; 72125; 80053; 80320; 83690; 85025; 96374; 99281; 99284; J3411; J7040

== ENCOUNTER 2019-03-23 06:19 | Outpatient (CLI) | payer MEDICAID, OTHER | END 2019-03-23 06:20 | disposition critical access hospital (66) | LOC: EMS 06:19 | PROVIDERS: ATTEND Surgery | DX: R51 Headache (principal); M54.5 Low back pain; Y04.2XXA Assault by strike against or bumped into by another person, initial encounter | CPT/HCPCS: A0425; A0429; A0999 ==

== ENCOUNTER 2019-03-23 06:24 | Emergency (ER) | payer MEDICAID, OTHER ==
[2019-03-23] MEDS ORDERED: IBUPROFEN 600 MG TABLET PO STA (07:08)
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
[2019-03-23 07:26] VITALS: BP 108/77
== END 2019-03-23 08:15 | disposition left against medical advice (07) ==
LOC: EDUNIT# → ED 06:24
DX: S01.01XA Laceration without foreign body of scalp, initial encounter (principal); Y04.2XXA Assault by strike against or bumped into by another person, initial encounter; Y92.003 Bedroom of unspecified non-institutional (private) residence as the place of occurrence of the external cause; F10.920 Alcohol use, unspecified with intoxication, uncomplicated; Z53.20 Procedure and treatment not carried out because of patient's decision for unspecified reasons
CPT/HCPCS: 99283; 99284; A9270

== ENCOUNTER 2019-05-19 09:28 | Outpatient (CLI) | payer MEDICAID ==
--- NOTE | 2019-05-19 14:50 | XRAY Report ---
Reason: MUSCLE SPASM,BACK Procedure Date: 05/19/2019 Accession Number: [id number] / [id number] Procedure: XR - Lumbar Spine Complete CPT Code: Final Report FULL RESULT: EXAM: LUMBOSACRAL SPINE RADIOGRAPHY EXAM DATE: 05/19/2019 09:34 AM. CLINICAL HISTORY: Muscle spasm, back. COMPARISONS: None. TECHNIQUE: 4 views. FINDINGS: Alignment: There is dextroconvex scoliosis centered about L3, less than 10 degrees. No listhesis. Bones: Five [id number] lumbar vertebral bodies are present. The bones are qualitatively osteopenic; this limits evaluation for underlying fractures or masses. Within these limitations, no fracture is detected. Disks: Artificial disk devices are seen at L4-L5 and L5-S1. Loss of disk space height with marginal osteophytosis is seen throughout the remaining lumbar spine. Facets: Advanced degenerative changes are seen at L4-S1. Sacroiliac Joints: Unremarkable. Soft Tissues: Normal. The visualized bowel gas pattern is normal. IMPRESSION: Osteopenia and degenerative changes with prior orthopedic intervention in the lower lumbar spine as described. RADIA
== END 2019-05-19 09:29 | disposition home or self-care (01) ==
LOC: DI 09:28
PROVIDERS: ATTEND Family Medicine
DX: M47.816 Spondylosis without myelopathy or radiculopathy, lumbar region (principal); M47.817 Spondylosis without myelopathy or radiculopathy, lumbosacral region; M51.36 Other intervertebral disc degeneration, lumbar region
CPT/HCPCS: 72110

== ENCOUNTER 2019-05-26 11:03 | Outpatient (CLI) | payer MEDICAID, OTHER ==
[2019-05-26 11:40] LABS: BASOPHILS % (AUTO) 0.4 %; EOSINOPHILS # (AUTO) 0.1 10^3/uL (0.0-0.7); EOSINOPHILS % (AUTO) 1.8 %; HGB - HEMOGLOBIN 12.8 g/dL (12.0-16.0); LYMPHOCYTES # (AUTO) 1.9 10^3/uL (1.5-3.5); LYMPHOCYTES % (AUTO) 43.3 %; MEAN CORPUSCULAR HEMOGLOBIN 34.8 pg (27.0-31.0); MEAN CORPUSCULAR HGB CONC 31.4 g/dL (32.0-36.0); MEAN CORPUSCULAR VOLUME 110.6 fL (81.0-99.0); MEAN PLATELET VOLUME 9.2 fL (7.9-10.8); MONOCYTES # (AUTO) 0.3 10^3/uL (0.0-1.0); MONOCYTES % (AUTO) 6.5 %; NEUTROPHILS # (AUTO) 2.1 10^3/uL (1.5-6.6); NEUTROPHILS % (AUTO) 47.8 %; PLT - PLATELET COUNT 188 10^3/uL (130-450); RED BLOOD COUNT 3.68 10^6/uL (4.20-5.40); RED CELL DISTRIBUTION WIDTH 12.4 % (12.0-15.0); WHITE BLOOD COUNT 4.5 x10^3/uL (4.8-10.8)
[2019-05-26 11:58] LABS: % IRON SATURATION 20 % (20-50); ALBUMIN 4.8 g/dL (3.2-5.5); ALBUMIN/GLOBULIN RATIO 1.7 (1.0-2.2); ALKALINE PHOSPHATASE 76 IU/L (42-121); ALT ALANINE AMINOTRANSFERASE 18 IU/L (10-60); AST ASPARTATE AMINOTRANSFERASE 24 IU/L (10-42); BILIRUBIN,TOTAL 0.9 mg/dL (0.2-1.0); BUN - BLOOD UREA NITROGEN 13 mg/dL (6-20); CALCIUM 9.5 mg/dL (8.5-10.3); CARBON DIOXIDE - CO2 28 mmol/L (21-32); CHLORIDE 101 mmol/L (101-111); CHOL/HDL RATIO 3.2 (<4.4); CHOLESTEROL 277 mg/dL; CREATININE 0.5 mg/dL (0.4-1.0); GFR - MDRD 127 (>89); GLUCOSE 114 mg/dL (70-100); HDL CHOLESTEROL 86 mg/dL; IRON 76 ug/dL (28-170); LDL CHOLESTEROL,CALCULATED 173 mg/dL; SODIUM 138 mmol/L (135-145); TOTAL IRON BINDING CAPACITY 385 ug/dL (250-450); TOTAL PROTEIN 7.6 g/dL (6.7-8.2); TRANSFERRIN 275 mg/dL (192-382); VLDL CHOLESTEROL 18 mg/dL
[2019-05-26 12:07] LABS: RBC MORPHOLOGY (MULTIPLE) 3+ MACROCYTOSIS (NORMAL)
[2019-05-26 12:10] LABS: THYROID STIMULATING HORMONE 0.95 uIU/mL (0.34-5.60)
[2019-05-26 12:12] LABS: FREE T4 (FREE THYROXINE) 0.72 ng/dL (0.58-1.64)
== END 2019-05-26 11:04 | disposition home or self-care (01) ==
LOC: LAB 11:03
PROVIDERS: ATTEND Family Medicine
DX: F41.9 Anxiety disorder, unspecified (principal); F32.9 Major depressive disorder, single episode, unspecified; Z79.899 Other long term (current) drug therapy; E78.00 Pure hypercholesterolemia, unspecified; E87.6 Hypokalemia; G89.29 Other chronic pain; M54.9 Dorsalgia, unspecified
CPT/HCPCS: 36415; 80053; 80061; 82728; 83540; 83721; 84439; 84443; 84466; 84481; 85025

== ENCOUNTER 2019-08-05 03:09 | Emergency (ER) | payer MEDICAID ==
[2019-08-05 03:30] VITALS: BP 138/88
[2019-08-05] MEDS ORDERED: KETOROLAC 60 MG/2 ML VIAL IM STA (04:12)
[2019-08-05] MEDS ORDERED: HYDROcod/ACET 5/325 Prepack 4 PO STA (04:15)
--- NOTE | 2019-08-05 04:18 | ED Physician Documentation ---
PD HPI BACK PAIN - Stated complaint Stated Complaint: BK/LEG/HIP PX - Chief complaint Chief Complaint: Back Pain - History obtained from History obtained from: Patient - History of Present Illness Timing - details: Gradual onset, Still present, Constant Location: Lower Quality: Pain, Sharp, Similar to prior episodes Associated symptoms: Numbness. No: Fever, Weakness, Incontinent of urine, Unable to urinate, Hematuria, Incontinent of stool Worsened by: Movement - Additional information Additional information: 59-year-old female with history of chronic back pain, who underwent back surgery at the level of L4-L5 in 2004, who presented to emergency department because of acute on chronic back pain. For the last several days, patient reported that she has low back pain with radiation down to her right buttock wrapping down to her right lateral side to the knee area. She denies any recent fall. She denies any fever, chills, difficulty with urination, urinary frequency or urgency.She denies any urinary or fecal incontinence. She reported of numbness to her right lower extremity. She ambulated to the emergency department for evaluation. Review of Systems Constitutional: denies: Fever, Chills Nose: denies: Rhinorrhea / runny nose Cardiac: denies: Chest pain / pressure Respiratory: denies: Dyspnea, Cough GI: denies: Abdominal Pain, Abdominal Swelling Musculoskeletal: reports: Back pain. denies: Neck pain, Extremity pain, Joint pain Neurologic: denies: Generalized weakness, Focal weakness, Numbness PD PAST MEDICAL HISTORY - Past Medical History Cardiovascular: High cholesterol Respiratory: None Neuro: None Endocrine/Autoimmune: None GI: None COLLEGE SPORTS ASSISTANT: None : None HEENT: None Psych: Depression Musculoskeletal: Chronic back pain Derm: None - Past Surgical History Past Surgical History: Yes Ortho: Spine surgery /COLLEGE SPORTS ASSISTANT: section - Present Medications Home Medications: Ambulatory Orders Medication Instructions Recorded Confirmed Gabapentin 800 mg PO TID 05/13/17 11/11/18 cloNIDine [Catapres] 0.1 mg PO BID #14 tablet 07/26/18 11/11/18 DULoxetine [Cymbalta] 60 mg PO BID 10/11/18 11/11/18 Meloxicam 7.5 mg PO BID PRN 10/11/18 11/11/18 Metoprolol Succinate [Kapspargo 25 mg PO DAILY PM 10/11/18 11/11/18 Sprinkle] busPIRone [Buspar] 10 mg PO BID 10/11/18 11/11/18 traZODone [Desyrel] 150 mg PO DAILY PM 10/11/18 11/11/18 Venlafaxine [Effexor] 75 mg PO TID 11/11/18 11/11/18 Cephalexin [Keflex] 500 mg PO TID #21 capsule 01/06/19 LORazepam [Ativan] 1 mg PO Q6H PRN #25 tablet 01/06/19 Ondansetron Odt [Zofran] 4 mg TL Q6H PRN #10 tablet 01/06/19 Hydrocodone/Acetaminophen 1 - 2 each PO Q6H PRN #12 tablet 08/05/19 [Hydrocodon-Acetaminophen 5-325] methylPREDNISolone 4 mg PO DAILY #21 tablet 08/05/19 [Methylprednisolone] - Allergies Allergies/Adverse Reactions: Allergies Allergy/AdvReac Type Severity Reaction Status Date / Time pregabalin [From Lyrica] Allergy Hives Verified 03/23/19 06:40 adhesive tape AdvReac Rash Verified 03/23/19 06:40 Sulfa (Sulfonamide AdvReac Itching Verified 03/23/19 06:40 Antibiotics) - Social History Does the pt smoke?: No Smoking Status: Never smoker Does the pt drink ETOH?: Yes Does the pt have substance abuse?: No - Immunizations Immunizations are current?: Yes - POLST Patient has POLST: No PD ED PE NORMAL - Vitals Vital signs reviewed: Yes - General General: Alert and oriented X 3, No acute distress, Well developed/nourished - HEENT HEENT: Atraumatic - Neck Neck: Supple, no meningeal sign - Cardiac Cardiac: RRR - Respiratory Respiratory: No respiratory distress - Abdomen Abdomen: Normal bowel sounds - Back Back: No CVA TTP, Other (right lower paraspinal tenderness. ) - Derm Derm: Normal color, Warm and dry - Extremities Extremities: No deformity, No tenderness to palpate, Normal ROM s pain, No edema, No calf tenderness / cord - Neuro Neuro: Alert and oriented X 3, Normal speech, Other (Bilateral lower extremity strength is 5/5. Reflexes were +2 on both knees and ankles. ) Eye Opening: Spontaneous Motor: Obeys Commands Verbal: Oriented GCS Score: 15 - Psych Psych: Normal mood Results - Vitals Vitals: Vital Signs - 24 hr 08/05/19 03:25 Temperature 36.4 C L Heart Rate 98 Blood Pressure 138/88 H O2 Saturation 94 Oxygen O2 Source Room air PD MEDICAL DECISION MAKING - ED course Complexity details: reviewed old records, d/w patient ED course: 59-year-old female presented to the emergency department because of acute on chronic low back pain. Patient's neurological exam is unremarkable. Reflexes are present and equal bilaterally. She was ambulatory with a steady gait. Bilateral lower extremity strength are 5/5. Diagnosis and treatment plan were discussed with the patient. This is most consistent with lumbar radiculopathy. Patient was prescribed Medrol pack and norco for treatment. Patient was given IM Toradol here in the emergency department. She was instructed to follow-up with her primary care doctor for ongoing management of diagnosis. All questions were addressed. Patient was discharged in stable condition. Departure - Departure Disposition: 01 Home, Self Care Clinical Impression: Sciatica, right side, Lumbar radiculopathy, Acute exacerbation of chronic low back pain Condition: Stable Instructions: ED Sciatica Follow-Up: Gualberto Kothari MD [Emergency Provider] - Within 3 Days Prescriptions: Hydrocodone/Acetaminophen [Hydrocodon-Acetaminophen 5-325] 1 - 2 each PO Q6H PRN #12 tablet PRN Reason: pain methylPREDNISolone [Methylprednisolone] 4 mg PO DAILY #21 tablet Discharge Date/Time: 08/05/19 04:54
== END 2019-08-05 04:54 | disposition home or self-care (01) ==
LOC: ED 03:09
DX: M54.31 Sciatica, right side (principal); M54.16 Radiculopathy, lumbar region; M54.5 Low back pain; G89.29 Other chronic pain
CPT/HCPCS: 96372; 99283; 99284

== ENCOUNTER 2019-08-07 02:22 | Emergency (ER) | payer MEDICAID ==
[2019-08-07 02:33] VITALS: BP 124/74
== END 2019-08-07 03:10 | disposition left against medical advice (07) ==
LOC: ED 02:22
DX: Z53.21 Procedure and treatment not carried out due to patient leaving prior to being seen by health care provider (principal)

== ENCOUNTER 2019-08-15 17:58 | Outpatient (CLI) | payer MEDICAID | END 2019-08-15 17:59 | disposition EMS.NT | LOC: EMS 17:58 | PROVIDERS: ATTEND Surgery | DX: R11.2 Nausea with vomiting, unspecified (principal) ==

== ENCOUNTER 2019-08-15 21:20 | Outpatient (CLI) | payer MEDICAID | END 2019-08-15 21:21 | disposition critical access hospital (66) | LOC: EMS 21:20 | PROVIDERS: ATTEND Surgery | DX: R52 Pain, unspecified (principal); R41.82 Altered mental status, unspecified; Z72.89 Other problems related to lifestyle | CPT/HCPCS: A0425; A0429 ==

== ENCOUNTER 2019-08-15 21:26 | Emergency (ER) | payer MEDICAID ==
[2019-08-15 21:47] VITALS: BP 139/84
--- NOTE | 2019-08-15 22:14 | ED Physician Documentation ---
History of Present Illness - Stated complaint Stated Complaint: UNCOMFORTABLE, HBD - Chief complaint Chief Complaint: Trauma Hd/Nk - History obtained from History obtained from: Patient - History of Present Illness Timing: Yesterday Pain level now: 10 - Additonal information Additional information: patient walked to ED. she has been uncooperative with triage process. She has strong odor of alcohol on breath and slurred speech. When I ask what she came to ED for, she says "severe head trauma". Asked to elaborate, she repeatedly points at different areas of her head. When I ask what is wrong with the areas she is pointing to, she becomes angry, says "it hurts! Aren't you a doctor?" She says she fell yesterday while gardening but further attempts at gathering HPI or ROS was met with constant interruption with irrelevant information about previous head injuries and her neurologist telling her she has had "too many, so many head injuries". Due to persistent interruptions, HPI is very limited and ROS unobtainable. Review of Systems Unable to obtain: Intoxicated PD PAST MEDICAL HISTORY - Past Medical History Cardiovascular: High cholesterol Respiratory: None Neuro: None Endocrine/Autoimmune: None GI: None NERVE SPECIALIST: None : None HEENT: None Psych: Depression Musculoskeletal: Chronic back pain Derm: None - Past Surgical History Past Surgical History: Yes Ortho: Spine surgery /NERVE SPECIALIST: section - Present Medications Home Medications: Ambulatory Orders Medication Instructions Recorded Confirmed Gabapentin 800 mg PO TID 05/13/17 11/11/18 cloNIDine [Catapres] 0.1 mg PO BID #14 tablet 07/26/18 11/11/18 DULoxetine [Cymbalta] 60 mg PO BID 10/11/18 11/11/18 Meloxicam 7.5 mg PO BID PRN 10/11/18 11/11/18 Metoprolol Succinate [Kapspargo 25 mg PO DAILY PM 10/11/18 11/11/18 Sprinkle] busPIRone [Buspar] 10 mg PO BID 10/11/18 11/11/18 traZODone [Desyrel] 150 mg PO DAILY PM 10/11/18 11/11/18 Venlafaxine [Effexor] 75 mg PO TID 11/11/18 11/11/18 Cephalexin [Keflex] 500 mg PO TID #21 capsule 01/06/19 LORazepam [Ativan] 1 mg PO Q6H PRN #25 tablet 01/06/19 Ondansetron Odt [Zofran] 4 mg TL Q6H PRN #10 tablet 01/06/19 Hydrocodone/Acetaminophen 1 - 2 each PO Q6H PRN #12 tablet 08/05/19 [Hydrocodon-Acetaminophen 5-325] methylPREDNISolone 4 mg PO DAILY #21 tablet 08/05/19 [Methylprednisolone] - Allergies Allergies/Adverse Reactions: Allergies Allergy/AdvReac Type Severity Reaction Status Date / Time pregabalin [From Lyrica] Allergy Hives Verified 08/15/19 21:47 adhesive tape AdvReac Rash Verified 08/15/19 21:47 Sulfa (Sulfonamide AdvReac Itching Verified 08/15/19 21:47 Antibiotics) - Social History Does the pt smoke?: No Smoking Status: Never smoker Does the pt drink ETOH?: Yes Does the pt have substance abuse?: No - Immunizations Immunizations are current?: Yes - POLST Patient has POLST: No PD ED PE NORMAL - Vitals Vital signs reviewed: Yes - General General: No acute distress, Well developed/nourished, Other (strong odor of alcohol on breath; answers orientation question to self, place, but becomes angry and resentful when I ask her month/year and says "you've asked enough questions") - HEENT HEENT: Atraumatic, PERRL, EOMI - Neck Neck: No bony TTP - Cardiac Cardiac: RRR, No murmur - Respiratory Respiratory: No respiratory distress, Clear bilaterally - Neuro Neuro: nicu rn 2-12 intact, No motor deficit, Other (slurred speech) Results - Vitals Vitals: Vital Signs - 24 hr 08/15/19 21:40 Temperature 36.1 C L Heart Rate 107 H Respiratory 16 Rate Blood Pressure 139/84 H O2 Saturation 95 Oxygen O2 Source Room air PD MEDICAL DECISION MAKING - ED course Complexity details: reviewed old records, considered differential, d/w patient ED course: patient is uncooperative with HPI, ROS, and parts of physical exam (was covering head with hands until I repeatedly explained that she would have to move her hands for me to examine her head). She fell during her stay when ambulating to bathroom. Her exam remains unchanged. Plan is to observe in ED and consider testing such as CT head if her mental status deteriorates. However, she subsequently was ambulating in the hallway without assistance, coming out to desk insisting on leaving. Departure - Departure Disposition: ED Elope Clinical Impression: Alcohol intoxication Condition: Stable Discharge Date/Time: 08/15/19 23:50
== END 2019-08-15 23:50 | disposition left against medical advice (07) ==
LOC: EDUNIT# → ED 21:26
DX: F10.129 Alcohol abuse with intoxication, unspecified (principal); F32.9 Major depressive disorder, single episode, unspecified; G89.29 Other chronic pain; M54.9 Dorsalgia, unspecified; Z91.81 History of falling
CPT/HCPCS: 99281; 99282

== ENCOUNTER 2019-11-20 12:10 | Outpatient (CLI) | payer MEDICAID | END 2019-11-20 12:11 | disposition critical access hospital (66) | LOC: EMS 12:10 | PROVIDERS: ATTEND Surgery | DX: S09.90XA Unspecified injury of head, initial encounter (principal); R29.6 Repeated falls; R26.89 Other abnormalities of gait and mobility; R41.0 Disorientation, unspecified; W19.XXXA Unspecified fall, initial encounter; Y92.009 Unspecified place in unspecified non-institutional (private) residence as the place of occurrence of the external cause | CPT/HCPCS: A0425; A0429; A0999 ==

== ENCOUNTER 2019-11-20 12:14 | Inpatient (IN) | payer MEDICAID ==
[2019-11-20] MEDS ORDERED: THIAMINE INJ 100 MG in SODIUM CHLORIDE 0.9% 50 ML IV STA (12:18)
--- NOTE | 2019-11-20 12:21 | ED Physician Documentation ---
PD HPI Fall - Stated complaint Stated Complaint: FALL - History obtained from History obtained from: Patient, EMS - History of Present Illness Mechanism of injury: Other (59-year-old woman with history of alcoholism presents having fallen many many times over the last few days. She says she fell 3 times today, the details are somewhat vague because of either altered mental status or intoxication, I suspect the latter despite her saying she has not had a drink today. 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 : None HEENT: None Psych: Depression Musculoskeletal: Chronic back pain Derm: None - Past Surgical History Past Surgical History: Yes Ortho: Spine surgery /RENT AND MISCELLANEOUS REMITTANCE CLERK: section - Present Medications Home Medications: Ambulatory Orders Medication Instructions Recorded Confirmed DULoxetine [Cymbalta] 60 mg PO DAILY 10/11/18 11/20/19 Metoprolol Succinate [Kapspargo 25 mg PO BID 10/11/18 11/20/19 Sprinkle] busPIRone [Buspar] 15 mg PO BID 10/11/18 11/20/19 traZODone [Desyrel] 150 mg PO QPM 10/11/18 11/20/19 Gabapentin 800 mg PO TID 11/20/19 11/20/19 Meloxicam 15 mg PO DAILY 11/20/19 11/20/19 Ondansetron [Ondansetron Odt] 8 mg PO Q6HR PRN 11/20/19 11/20/19 Venlafaxine HCl [Venlafaxine HCl 75 mg PO DAILY 11/20/19 11/20/19 ER] - Allergies Allergies/Adverse Reactions: Allergies Allergy/AdvReac Type Severity Reaction Status Date / Time pregabalin [From Lyrica] Allergy Hives Verified 08/15/19 21:47 adhesive tape AdvReac Rash Verified 08/15/19 21:47 Sulfa (Sulfonamide AdvReac Itching Verified 08/15/19 21:47 Antibiotics) - Social History Does the pt smoke?: No Smoking Status: Never smoker Does the pt drink ETOH?: Yes Does the pt have substance abuse?: No - Immunizations Immunizations are current?: Yes - POLST Patient has POLST: No PD ED PE NORMAL - Vitals Vital signs reviewed: Yes - General General: Other (She is alert and oriented to person, a vague historian but knows she is in the hospital.) - HEENT HEENT: PERRL, EOMI (With horizontal nystagmus), Other (Tenderness and bruising over the bridge of the nose and anterior mandible without deformities.) - Neck Neck: No bony TTP (But kept in a c-collar pending imaging given intoxication) - Cardiac Cardiac: RRR, No murmur - Respiratory Respiratory: No respiratory distress, Clear bilaterally - Abdomen Abdomen: Soft, Non tender - Derm Derm: Normal color, Warm and dry - Extremities Extremities: Other (Bruise over the anterior patella both sides but with good range of motion, the right foot is quite swollen and tender diffusely. Also ecchymotic.) - Neuro Neuro: Other (She has significant asterixis) Eye Opening: Spontaneous Motor: Obeys Commands Verbal: Confused GCS Score: 14 Results - Vitals Vitals: Vital Signs - 24 hr 11/20/19 11/20/19 11/20/19 12:20 12:25 12:55 Temperature 36.5 C Heart Rate 84 116 H Respiratory 18 18 11 L Rate Blood Pressure 128/65 120/90 H 117/78 O2 Saturation 99 100 100 11/20/19 11/20/19 11/20/19 13:25 13:30 14:00 Temperature Heart Rate 117 H 119 H 110 H Respiratory 13 15 12 Rate Blood Pressure 108/68 128/65 108/69 O2 Saturation 99 100 97 11/20/19 11/20/19 11/20/19 14:30 15:00 15:30 Temperature Heart Rate 109 H 113 H 113 H Respiratory 10 L 11 L 11 L Rate Blood Pressure 83/54 L 91/54 L 97/86 H O2 Saturation 100 98 98 11/20/19 11/20/19 11/20/19 16:00 16:30 17:00 Temperature Heart Rate 111 H 115 H 115 H Respiratory 9 L 13 12 Rate Blood Pressure 96/66 102/69 90/42 L O2 Saturation 99 100 97 Oxygen O2 Source Room air - Labs Labs: Laboratory Tests 11/20/19 11/20/19 11/20/19 12:28 12:28 12:28 WBC 3.4 L RBC 3.16 L Hgb 11.1 L Hct 32.7 L MCV 103.5 H MCH 35.1 H MCHC 33.9 RDW 18.8 H Plt Count 36 L MPV 12.4 H Neut # (Auto) 1.6 Lymph # (Auto) 1.6 [place] # (Auto) 0.2 Eos # (Auto) 0.0 Baso # (Auto) 0.0 Absolute Nucleated RBC 0.00 Nucleated RBC % 0.0 PT 14.7 H INR 1.3 H Sodium 135 Potassium 3.4 L Chloride 95 L Carbon Dioxide 21 Anion Gap 19.0 H BUN 17 Creatinine 0.8 Estimated GFR (MDRD) 74 L Glucose 144 H Calcium 9.1 Phosphorus 5.0 H Magnesium 2.1 Total Bilirubin 5.0 H AST 222 H ALT 178 H Alkaline Phosphatase 745 H Ammonia Total Protein 5.7 L Albumin 3.1 L Globulin 2.6 Albumin/Globulin Ratio 1.2 Lipase 32 Ethyl Alcohol 181.2 11/20/19 12:28 WBC RBC Hgb Hct MCV MCH MCHC RDW Plt Count MPV Neut # (Auto) Lymph # (Auto) [place] # (Auto) Eos # (Auto) Baso # (Auto) Absolute Nucleated RBC Nucleated RBC % PT INR Sodium Potassium Chloride Carbon Dioxide Anion Gap BUN Creatinine Estimated GFR (MDRD) Glucose Calcium Phosphorus Magnesium Total Bilirubin AST ALT Alkaline Phosphatase Ammonia 72.2 H Total Protein Albumin Globulin Albumin/Globulin Ratio Lipase Ethyl Alcohol - Rads (name of study) CT Cspine Radiology: EMP read contemporaneously (Sclerotic lesion of T3 needing follow-up imaging, no acute disease otherwise.) CT Face Radiology: EMP read contemporaneously (no frx) Ct Head Radiology: EMP read contemporaneously (NAD) R foot XR Radiology: EMP read contemporaneously (NAD) L ankle XR Radiology: EMP read contemporaneously (NAD) B knee XR Radiology: EMP read contemporaneously (Slightly displaced left proximal fibular shaft fracture) Procedures - Splint (location) LLE Splint applied by: Tech Type of splint: Fiberglass, Long leg, Posterior Other: Patient tolerated well, No complications, Neurovascular intact PD MEDICAL DECISION MAKING - ED course ED course: MELD score 17 DF 22 59 yo Woman with well-known issues with alcoholism presents with almost innumerable falls over the last few days. Clinically appears to be with some elements of hepatic encephalopathy in addition to intoxication. Advanced imaging of the head, C-spine, and face were done. Also x-rays of both knees, the right foot. My initial read suggest that there is a proximal fibular fracture and probably a little chip fracture of the right first metatarsal. Case was discussed by phone with the on-call surgeon, Dr. Ochoa at 1:05 PM who will consult, but probably will defer to the medicine team for formal admission given the lack of specific surgical needs. Subsequently I spoke with the orthopedic surgeon, Dr. Plummer at 1:15 PM and he will consult. The left lower extremity will be placed in a splint. And I also spoke with the hospitalist about that time but no formal consult at that time because we are waiting to see who the primary admitting service is from the surgeon Dr. Ochoa did come I am consulted, plans to sign off on the patient given the lack of surgical issues and Dr. Florez was updated at 4:36 PM that the hospitalist service would be primary on the case. She did have some soft blood pressures a few times which seem to respond to IV fluids. Serial H&H and a lactate level were ordered but she was transferred to the ICU before these were performed. Departure - Departure Disposition: 66 [facility] DC/Xfer Clinical Impression: Hepatic encephalopathy, Multiple falls, Multiple contusions Alcohol intoxication Qualifiers: Complication of substance-induced condition: uncomplicated Qualified Code(s): F10.920 - Alcohol use, unspecified with intoxication, uncomplicated Facial contusion Qualifiers: Encounter type: initial encounter Qualified Code(s): S00.83XA - Contusion of other part of head, initial encounter Fracture of left proximal fibula Qualifiers: Encounter type: initial encounter Fracture type: closed Fracture morphology: unspecified fracture morphology Qualified Code(s): S82.832A - Other fracture of upper and lower end of left fibula, initial encounter for closed fracture Contusion of right foot Qualifiers: Encounter type: initial encounter Qualified Code(s): S90.31XA - Contusion of right foot, initial encounter Alcoholic hepatitis Qualifiers: Ascites presence: unspecified Qualified Code(s): K70.10 - Alcoholic hepatitis without ascites Condition: Stable
[2019-11-20 12:43] LABS: BASOPHILS % (AUTO) 0.3 %; EOSINOPHILS % (AUTO) 0.3 %; HGB - HEMOGLOBIN 11.1 g/dL (12.0-16.0); LYMPHOCYTES # (AUTO) 1.6 10^3/uL (1.5-3.5); LYMPHOCYTES % (AUTO) 47.7 %; MEAN CORPUSCULAR HEMOGLOBIN 35.1 pg (27.0-31.0); MEAN CORPUSCULAR HGB CONC 33.9 g/dL (32.0-36.0); MEAN CORPUSCULAR VOLUME 103.5 fL (81.0-99.0); MEAN PLATELET VOLUME 12.4 fL (7.9-10.8); MONOCYTES # (AUTO) 0.2 10^3/uL (0.0-1.0); MONOCYTES % (AUTO) 6.1 %; NEUTROPHILS # (AUTO) 1.6 10^3/uL (1.5-6.6); NEUTROPHILS % (AUTO) 45.3 %; PLT - PLATELET COUNT 36 10^3/uL (130-450); RED BLOOD COUNT 3.16 10^6/uL (4.20-5.40); RED CELL DISTRIBUTION WIDTH 18.8 % (12.0-15.0); WHITE BLOOD COUNT 3.4 x10^3/uL (4.8-10.8)
[2019-11-20 12:45] LABS: INR 1.3 (0.8-1.2); PT - PROTHROMBIN TIME 14.7 secs (9.9-12.6)
[2019-11-20 12:54] LABS: ALBUMIN 3.1 g/dL (3.2-5.5); ALBUMIN/GLOBULIN RATIO 1.2 (1.0-2.2); CALCIUM 9.1 mg/dL (8.5-10.3); CREATININE 0.8 mg/dL (0.4-1.0); MAGNESIUM 2.1 mg/dL (1.7-2.8); TOTAL PROTEIN 5.7 g/dL (6.7-8.2)
[2019-11-20] MEDS ORDERED: LACTULOSE 10 GM /15 ML UDC PO STA (13:02)
--- NOTE | 2019-11-20 13:02 | XRAY Report ---
PROCEDURE: Foot 3 View RT INDICATIONS: R foot inj TECHNIQUE: 3 views of the foot were acquired. COMPARISON: None FINDINGS: Bones: No fractures or dislocations. No suspicious bony lesions. Soft tissues: No tibiotalar joint effusion. Achilles tendon appears normal. IMPRESSION: No acute fracture. No osseous lesion. If symptoms and/or clinical suspicion for pathology continue, f urther assessment with repeat plain films, or advanced imaging (e.g., CT, MRI, or bone scan) is recom mended for further assessment. Reviewed by: Anastacia Velasquez MD on 11/20/2019 1:01 PM PDT Approved by: Anastacia Velasquez MD on 11/20/2019 1:01 PM PDT Station ID: [id number]
--- NOTE | 2019-11-20 13:19 | CT Report ---
PROCEDURE: CERVICAL SPINE WO INDICATIONS: head inj, etoh, facial inj TECHNIQUE: Noncontrast 3 mm thick sections acquired from the skull base to the T4 level. Sagittal and coronal r eformats were then constructed. For radiation dose reduction, the following was used: automated exp osure control, adjustment of mA and/or kV according to patient size. COMPARISON: 02/26/2019. FINDINGS: Image quality: Excellent. Bones: No fractures or dislocations. Degenerative endplate changes and decreased intervertebral dis c space throughout cervical spine is seen. Minimal retrolisthesis at C4-5 level is also seen unchange d from prior study. 9 x 8 mm predominantly sclerotic area involving superior endplate of posterior T3 vertebral body is not included on previous studies and is of indeterminate etiology. Visualized supe rior ribs are intact. Soft tissues: Prevertebral soft tissues are normal in thickness. No paravertebral hematomas. No ap ical pneumothoraces. IMPRESSION: 1. No acute cervical spine fracture or dislocation. 2. Degenerative disc disease throughout cervical spine as above, slightly progressed compared to prio r studies dating back to 2018. No significant central canal stenosis or neural foraminal narrowing. G rade 1 retrolisthesis of C4 on C5. 3. Predominantly sclerotic lesion involving posterior superior portion of T3 vertebral body not inclu ded on prior studies and is of indeterminant etiology. Radiographic follow-up is recommended. Reviewed by: Maynor Coronel MD on 11/20/2019 1:17 PM PDT Approved by: Maynor Coronel MD on 11/20/2019 1:17 PM PDT Station ID: [id number]
--- NOTE | 2019-11-20 13:19 | CT Report ---
PROCEDURE: MAXILLOFACIAL WO INDICATIONS: head inj, etoh, facial inj TECHNIQUE: Noncontrast 1.5 mm thick axial images acquired from the mandible through the frontal sinuses, with co jose and sagittal reformatting. For radiation dose reduction, the following was used: automated ex posure control, adjustment of mA and/or kV according to patient size. COMPARISON: Comparison is made to CT facial bones 10/03/18 (images only, no report). Correlation is m norma with head CT examinations 11/20/2019, 02/26/2019, 10/11/2018, and 10/03/2018. FINDINGS: Image quality: Excellent. Bones and teeth: Orbital solis are intact. Sinus solis show no fracture or deformity. Nasal bones and septum are intact. There is mild chronic, stable rightward nasal septal deviation seen.Visualize d portions of the mandible demonstrate no fractures or subluxation. Zygomatic arches are intact. Pt erygoid plates are intact. Visualized portions of the skull base and auditory canals are intact. A right frontal maxillary incisor implant can be seen. Age-appropriate degenerative change can be seen of the visualized cervical spine. Sinuses: Paranasal sinuses are aerated, without fluid levels, mucosal thickening, or mucoceles. Mas toid air cells are aerated. Soft tissues: No edema, masses, or fluid collections. No enlarged lymph nodes. No soft tissue lace rations or debris. Vascular: Visualized vascular structures appear normal in the absence of contrast. Bony vascular fo ramina and canals are intact. IMPRESSION: No displaced facial bone fracture can be seen. Reviewed by: Qasim Thomas MD on 11/20/2019 12:17 PM MARIA DE JESUS Approved by: Qasim Thomas MD on 11/20/2019 12:17 PM MARIA DE JESUS Station ID: [id number]
--- NOTE | 2019-11-20 13:21 | CT Report ---
PROCEDURE: HEAD WO INDICATIONS: head inj, etoh, facial inj TECHNIQUE: Noncontrast 4.5 mm thick angled axial sections acquired from the foramen magnum to the vertex. For r adiation dose reduction, the following was used: automated exposure control, adjustment of mA and/or kV according to patient size. COMPARISON: Prior head CT examinations 02/26/2019, 10/11/2018, and 10/03/2017 (images only, no reports ). Correlation is also made with the accompanying maxillofacial CT 11/20/2019. FINDINGS: Image quality: There is streak artifact from apparent hearing aid on the left. CSF spaces: Basal cisterns are patent. No extra-axial fluid collections. Ventricles are normal in size and shape. Brain: No midline shift. No intracranial masses or hemorrhage. Herrera-white matter interface is norm al. Skull and face: Calvarium and visualized facial bones are intact, without suspicious lesions. Sinuses: Visualized sinuses and mastoids are clear. IMPRESSION: Limited study demonstrating no acute intracranial hemorrhage. No displaced calvarial fractures can be seen. Reviewed by: Qasim Thomas MD on 11/20/2019 12:19 PM MARIA DE JESUS Approved by: Qasim Thomas MD on 11/20/2019 12:19 PM [facility]IA DE JESUS Station ID: [id number]
--- NOTE | 2019-11-20 13:23 | XRAY Report ---
PROCEDURE: Knee 4 View BILAT INDICATIONS: B knee inj TECHNIQUE: 4 views of the bilateral knee(s) were acquired. COMPARISON: None. FINDINGS: Bones: Slightly displaced proximal left fibular fracture is seen. No acute right knee fracture or dis location. Mild bilateral tricompartmental osteoarthritis is seen. No suspicious bony lesions. Soft tissues: No joint effusion. No suspicious soft tissue calcifications. IMPRESSION: Slightly displaced left proximal fibular shaft fracture. No acute right knee fracture or dislocation. No significant joint effusion. Mild bilateral tricompartmental osteoarthritis. Reviewed by: Maynor Coronel MD on 11/20/2019 1:21 PM PDT Approved by: Maynor Coronel MD on 11/20/2019 1:21 PM PDT Station ID: [id number]
--- NOTE | 2019-11-20 13:50 | XRAY Report ---
PROCEDURE: Chest 1 View X-Ray INDICATIONS: trauma TECHNIQUE: One view of the chest was acquired. COMPARISON: 02/26/2019 FINDINGS: Surgical changes and devices: None. Lungs and pleura: No pleural effusions or pneumothorax. Lungs are clear. Mediastinum: Mediastinal contours appear normal. Heart size is enlarged. Bones and chest wall: No suspicious bony lesions. Overlying soft tissues appear unremarkable. IMPRESSION: No acute cardiopulmonary pathology. Reviewed by: Maynor Coronel MD on 11/20/2019 1:48 PM PDT Approved by: Maynor Coronel MD on 11/20/2019 1:48 PM PDT Station ID: [id number]
--- NOTE | 2019-11-20 13:51 | XRAY Report ---
PROCEDURE: Ankle 3 View LT INDICATIONS: ankle inj/prox fib frx TECHNIQUE: 3 views of the ankle were acquired. COMPARISON: 11/04/2018 FINDINGS: Bones: Old healed distal fibular shaft fracture is seen. No acute ankle fracture or dislocation. Ankl e mortise is normally aligned. No suspicious bony lesions. Soft tissues: No tibiotalar joint effusion. Achilles tendon appears normal. Marked soft tissue swe lling over lateral malleolus is seen. IMPRESSION: No acute ankle fracture or dislocation. Old healed distal fibular shaft fracture. Latera l ankle soft tissue swelling. Reviewed by: Maynor Coronel MD on 11/20/2019 1:49 PM PDT Approved by: Maynor Coronel MD on 11/20/2019 1:49 PM PDT Station ID: [id number]
[2019-11-20] MEDS ORDERED: SODIUM CHLORIDE 0.9% 1,000 ML IV STA (15:03)
--- NOTE | 2019-11-20 16:03 | CONSULTATION NOTE ---
Referring Provider Name of Referring Provider:: Dr. Mora Consult Date: 11/20/19 Chief Complaint - Chief Complaint Chief Complaint: Pain lateral aspect left knee and pain over lateral aspect right ankle History of Present Illness - Admitted From Admitted From:: Emergency room - History Obtained From Records Reviewed: Emergency room History obtained from: Patient Exam Limitations: Patient is not a good historian - History of Present Illness HPI Comment/Other: This is a 59-year-old woman with a history of chronic alcohol use and has had multiple falls and previous fractures in the past. She is fallen several times over the past few days without good recollection of mechanism. She does have pain over the lateral aspect of the left knee and to a much lesser degree medial left ankle. She has some pain over the lateral aspect of the right ankle as we ll. Her pain is associated with weightbearing. She does not seem to have any symptoms of neurologic deficit to lower extremity or any vascular deficit. 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 : reports: None HEENT: reports: None Psych: reports: Depression Musculoskeletal: reports: Chronic back pain Derm: reports: None MRSA Hx?: Yes - Past Surgical History Ortho: reports: Spine surgery /TORPEDO SHOOTER: reports: section - POLST Patient has POLST: No Meds/Allgy - Home Medications Home Medications: Ambulatory Orders Medication Instructions Recorded Confirmed DULoxetine [Cymbalta] 60 mg PO DAILY 10/11/18 11/20/19 Metoprolol Succinate [Kapspargo 25 mg PO BID 10/11/18 11/20/19 Sprinkle] busPIRone [Buspar] 15 mg PO BID 10/11/18 11/20/19 traZODone [Desyrel] 150 mg PO QPM 10/11/18 11/20/19 Gabapentin 800 mg PO TID 11/20/19 11/20/19 Meloxicam 15 mg PO DAILY 11/20/19 11/20/19 Ondansetron [Ondansetron Odt] 8 mg PO Q6HR PRN 11/20/19 11/20/19 Venlafaxine HCl [Venlafaxine HCl 75 mg PO DAILY 11/20/19 11/20/19 ER] - Allergies Allergies/Adverse Reactions: Allergies Allergy/AdvReac Type Severity Reaction Status Date / Time pregabalin [From Lyrica] Allergy Hives Verified 08/15/19 21:47 adhesive tape AdvReac Rash Verified 08/15/19 21:47 Sulfa (Sulfonamide AdvReac Itching Verified 08/15/19 21:47 Antibiotics) Review of Systems - Musculoskeletal Musculoskeletal: reports: Joint swelling - Neurological Neurological: reports: General weakness, Memory problems (See HPI) Exam - Vital Signs Vital Signs: Vital Signs x48h Temp Pulse Resp BP Pulse Ox 11/20/19 15:30 113 H 11 L 97/86 H 98 11/20/19 15:00 113 H 11 L 91/54 L 98 11/20/19 14:30 109 H 10 L 83/54 L 100 11/20/19 14:00 110 H 12 108/69 97 11/20/19 13:30 119 H 15 128/65 100 11/20/19 13:25 117 H 13 108/68 99 11/20/19 12:55 116 H 11 L 117/78 100 11/20/19 12:25 84 18 120/90 H 100 11/20/19 12:20 36.5 C 18 128/65 99 - Physical Exam General Appearance: positive: Other (She appears much older than stated age, mild distress) Respiratory: positive: Chest non-tender Peripheral Pulses: positive: 1+ Skin: positive: Warm, Dry Extremities: positive: Other (She has no sign of upper extremity acute trauma. The left lower extremity shows a stable left knee, extensor mechanism intact, tenderness to proximal left fibula, tenderness to left ankle deltoid but stable ankle mortise and no tenderness to posterior or lateral malleolus. The right lower extremity shows nontender right knee, tenderness over the anterior talofibular ligament with swelling and ecchymosis, pain with inversion of right ankle but stable right ankle mortise. The hindfoot, midfoot and forefoot are intact to right foot. Skin is intact. Circulation intact. Neurologic function intact. X-rays are reviewed independently and visualized by me: Minimally displaced proximal fibular fracture left. There is no sign of abnormality to the ankle mortise on the left side. The x-rays of the right foot do not show any definite fracture, narrowing of metatarsal phalangeal joint to great toe. She does have evidence of a healed fracture to the distal fibular shaft most likely from past injury.) Neurologic/Psychiatric: positive: Motor nml, Sensation nml Conclusion and Plan - Lab Results Laboratory Results 11/20/19 12:28: Ammonia 72.2 H 11/20/19 12:28: Sodium 135, Potassium 3.4 L, Chloride 95 L, Carbon Dioxide 21, Anion Gap 19.0 H, BUN 17, Creatinine 0.8, Estimated GFR (MDRD) 74 L, Glucose 144 H, Calcium 9.1, Phosphorus 5.0 H, Magnesium 2.1, Total Bilirubin 5.0 H, AST 222 H, ALT 178 H, Alkaline Phosphatase 745 H, Total Protein 5.7 L, Albumin 3.1 L, Globulin 2.6, Albumin/Globulin Ratio 1.2, Lipase 32, Ethyl Alcohol 181.2 11/20/19 12:28: PT 14.7 H, INR 1.3 H 11/20/19 12:28: WBC 3.4 L, RBC 3.16 L, Hgb 11.1 L, Hct 32.7 L, MCV 103.5 H, MCH 35.1 H, MCHC 33.9, RDW 18.8 H, Plt Count 36 L, MPV 12.4 H, Neut # (Auto) 1.6, Lymph # (Auto) 1.6, [place] # (Auto) 0.2, Eos # (Auto) 0.0, Baso # (Auto) 0.0, Absolute Nucleated RBC 0.00, Nucleated RBC % 0.0 - Diagnosis Diagnosis: Minimally displaced proximal left fibular fracture. Acute lateral collateral sprain of right ankle - Plan Plan: She has been appropriately immobilized in a long-leg fiberglass splint. She can have an Joel wrap or compressive dressing to right ankle and foot. When she is medically evaluated and stabilized, physical therapy could commence with a walker, weightbearing as tolerated with bilateral short leg boot walkers. She will need follow-up in the orthopedic clinic post hospital discharge.
--- NOTE | 2019-11-20 16:53 | CONSULTATION NOTE ---
History of Present Illness - Admitted From Admitted From:: ED - History Obtained From Records Reviewed: yes History obtained from: ED staff and patient Exam Limitations: none at this time - History of Present Illness HPI Comment/Other: 59 year old well known to [facility] ED. Known heavy alcohol use. Ground level fall earlier today. She has had a full work up and is now alert, no longer intoxicated She has complaint of mild back of head pain. She denies neck pain, chest pain, abdominal pain. Only other complaint is left leg pain. 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 : reports: None HEENT: reports: None Psych: reports: Depression Musculoskeletal: reports: Chronic back pain Derm: reports: None MRSA Hx?: Yes - Past Surgical History Ortho: reports: Spine surgery /HANDMADE TILE ARTIST: reports: section - POLST Patient has POLST: No Meds/Allgy - Home Medications Home Medications: Ambulatory Orders Medication Instructions Recorded Confirmed DULoxetine [Cymbalta] 60 mg PO DAILY 10/11/18 11/20/19 Metoprolol Succinate [Kapspargo 25 mg PO BID 10/11/18 11/20/19 Sprinkle] busPIRone [Buspar] 15 mg PO BID 10/11/18 11/20/19 traZODone [Desyrel] 150 mg PO QPM 10/11/18 11/20/19 Gabapentin 800 mg PO TID 11/20/19 11/20/19 Meloxicam 15 mg PO DAILY 11/20/19 11/20/19 Ondansetron [Ondansetron Odt] 8 mg PO Q6HR PRN 11/20/19 11/20/19 Venlafaxine HCl [Venlafaxine HCl 75 mg PO DAILY 11/20/19 11/20/19 ER] - Allergies Allergies/Adverse Reactions: Allergies Allergy/AdvReac Type Severity Reaction Status Date / Time pregabalin [From Lyrica] Allergy Hives Verified 08/15/19 21:47 adhesive tape AdvReac Rash Verified 08/15/19 21:47 Sulfa (Sulfonamide AdvReac Itching Verified 08/15/19 21:47 Antibiotics) Exam - Vital Signs Vital Signs: Vital Signs x48h Temp Pulse Resp BP Pulse Ox 11/20/19 16:30 115 H 13 102/69 100 11/20/19 16:00 111 H 9 L 96/66 99 11/20/19 15:30 113 H 11 L 97/86 H 98 11/20/19 15:00 113 H 11 L 91/54 L 98 11/20/19 14:30 109 H 10 L 83/54 L 100 11/20/19 14:00 110 H 12 108/69 97 11/20/19 13:30 119 H 15 128/65 100 11/20/19 13:25 117 H 13 108/68 99 11/20/19 12:55 116 H 11 L 117/78 100 11/20/19 12:25 84 18 120/90 H 100 11/20/19 12:20 36.5 C 18 128/65 99 - Physical Exam General Appearance: positive: No acute distress, Alert Eyes Bilateral: positive: Normal inspection, PERRL, EOMI ENT: positive: Other (ecchymosis about her mouth) Neck: positive: Nml inspection, No JVD, Trachea midline Respiratory: positive: Chest non-tender, No respiratory distress Cardiovascular: positive: Regular rate & rhythm Abdomen: positive: Non-tender (well healed midline incision from past laparotomy for gi bleed) Back: positive: Nml inspection, Other (non tender) Skin: positive: Other (mild scattered small ecchymosis) Extremities: positive: Other (left leg splint on no apparent fractures upper extremities or right lower extremity) Neurologic/Psychiatric: positive: Oriented x3 Comments/Other: mild asterixis present Conclusion and Plan - Lab Results Laboratory Results 11/20/19 12:28: Ammonia 72.2 H 11/20/19 12:28: Sodium 135, Potassium 3.4 L, Chloride 95 L, Carbon Dioxide 21, Anion Gap 19.0 H, BUN 17, Creatinine 0.8, Estimated GFR (MDRD) 74 L, Glucose 144 H, Calcium 9.1, Phosphorus 5.0 H, Magnesium 2.1, Total Bilirubin 5.0 H, AST 222 H, ALT 178 H, Alkaline Phosphatase 745 H, Total Protein 5.7 L, Albumin 3.1 L, Globulin 2.6, Albumin/Globulin Ratio 1.2, Lipase 32, Ethyl Alcohol 181.2 11/20/19 12:28: PT 14.7 H, INR 1.3 H 11/20/19 12:28: WBC 3.4 L, RBC 3.16 L, Hgb 11.1 L, Hct 32.7 L, MCV 103.5 H, MCH 35.1 H, MCHC 33.9, RDW 18.8 H, Plt Count 36 L, MPV 12.4 H, Neut # (Auto) 1.6, Lymph # (Auto) 1.6, Jerauld # (Auto) 0.2, Eos # (Auto) 0.0, Baso # (Auto) 0.0, Absolute Nucleated RBC 0.00, Nucleated RBC % 0.0 - Diagnostic Imaging Results Diagnostic Imaging Results: positive: Final report reviewed - Diagnosis Diagnosis: ground level fall with left fibula fracture. significant liver dysfunction. - Plan Plan: I discussed with her she has very significant liver dysfunction and she is fortunate she did not develop a serious bleed in her head. We discussed she should stop drinking. She does not have a general surgery or trauma surgery problem. She is cleared per surgery
[2019-11-20] MEDS ORDERED: ONDANSETRON 4 MG/2 ML VIAL IVP PRN (17:22)
[2019-11-20] MEDS ORDERED: SODIUM CHLORIDE FLUSH 0.9% 10 ML SYRINGE IVP PRN (17:22)
[2019-11-20] MEDS ORDERED: MULTIVITAMIN 10 ML, FOLIC ACID INJ 1 MG, THIAMINE INJ 100 MG, MAGNESIUM SULFATE 2 GM in... IV SCH ×5 (17:30)
[2019-11-20] MEDS ORDERED: ONDANSETRON ODT 4 MG TABLET TL PRN (18:05)
[2019-11-20] MEDS: HYDROmorphone 0.5 MG/0.5 ML SYRINGE IVP PRN ×2 (18:30→20:30)
--- NOTE | 2019-11-20 18:30 | HISTORY & PHYSICAL EXAMINATION ---
DATE OF SERVICE: 11/20/2019 Physician: Aarti Negrete MD HISTORY OF PRESENT ILLNESS: This is a 59-year-old white female with a history of depression, remote GI bleeding, alcohol abuse, chronic low back pain, L4-L5 surgery in the past, multiple visits to the ER with falls, pain and alcohol intoxication. The patient presented to the ER today with complaints of haven fallen 3 times today. She describes it as "being shaky" then her legs just gacve out. One of the falls was on her face, causing a bloody nose. She was found to have multiple contusions on exam and also by x-rays was found to have a fracture of her left lower leg. She was seen by Orthopedics and by General Surgery in the ER, deemed to not have any surgical needs, the fibular fracture was splinted and right ankle sprain was diagnosed also. She is being admitted for further medical management by the Hospitalist team. The patient is hypotensive with blood pressure 90, tachycardic with heart rate 115 in sinus rhythm. She is afebrile. She was intoxicated with a serum alcohol level of greater than 180. Over several hours, she was less intoxicated according to the Emergency Room doctor, which is when he called for the Hospitalist team to admit her. The patient has required pain medication for the fracture, received thiamine and received 1 liter of fluids of saline. PAST MEDICAL HISTORY: Alcoholism, depression, low back pain, L4-L5 surgery, a prior fracture of the other leg, remote history of GI bleed. ALLERGIES: LYRICA, ADHESIVE TAPE AND SULFA DRUGS. MEDICATIONS: 1. BuSpar 15 mg p.o. b.i.d. 2. Cymbalta 60 mg p.o. daily. 3. Gabapentin 800 mg p.o. t.i.d. 4. Meloxicam 15 mg p.o. daily. 5. Metoprolol succinate 25 mg b.i.d. 6. Sublingual Zofran p.r.n. nausea. 7. Desyrel 150 mg p.o. every night. 8. Venlafaxine 75 mg p.o. daily. FAMILY HISTORY: No diseases are inherited according to medical records. SOCIAL HISTORY: The patient smokes a pack of cigarettes a week, denies drug use. She has a heavy and prolonged history of alcohol abuse, has tried to quit several times, resumes drinking "out of being bored". She lives alone with her cat. REVIEW OF SYSTEMS: She denies fever, cough, chest pain, abdominal pain, N/V/D, and tried to stay in isolation during COVID restrictions. The pertinent positives are listed above, the rest are negative. PHYSICAL EXAMINATION: GENERAL: Poorly kempt white female. She smells of alcohol. VITAL SIGNS: Blood pressure 90/42, heart rate 115 in sinus rhythm, respiratory rate 12, room air saturation 97%. HEENT: Reveals dry oral mucosa and poor dentition. Scleral icterus present. There is a large purple bruise of her chin. The bridge of her nose is swollen and tender. NECK: No JVD. CHEST: Clear anteriorly. HEART: Tachycardia. No murmur. ABDOMEN: Mildly distended. Soft, nontender. No guarding or rebound. Normal bowel sounds. EXTREMITIES: No clubbing or cyanosis. There is mild edema of the fingers. She has innumerable small contusions over her upper and lower extremities. The left lower extremity is in a splint. NEUROLOGIC: She has mild nystagmus, marked asterixis and speaks with slight slurring. She is moving all extremities. LABORATORY DATA: Sodium 135, potassium 3.4, anion gap 19, BUN 17, creatinine 0.8, phosphorus 5, magnesium 2.1, bilirubin 5, AST 222, ALT 178, alkaline phosphatase 745. Lipase level 32. Ammonia level 72. INR 1.3. White blood count 3.4, hemoglobin 11.1 with high MCV of 103 and low platelet count of 36,000. Serum alcohol level was present at 181. There is no urinalysis or EKG available. IMAGING: She had XRays done of the chest, ankle, knee, foot, and facial bones CT, head CT and cervical spine CT. There were no areas of fracture except for a partially displaced proximal left fibula fracture. Chest x-ray shows no cardiopulmonary pathology. IMPRESSION/DIAGNOSES: 1. Hypotension. 2. Tachycardia. 3. Altered mental status with likely hepatic encephalopathy. 4. Frequent falls. 5. Left fibula fracture. 6. Multiple contusions. 7. Right ankle sprain (noted on the Orthopedist's consultation). 8. Alcohol intoxication. 9. Alcoholic hepatitis with elevated LFTs, bilirubin, ammonia level, INR and MCV and has thrombocytopenia. 10. Alcohol abuse. 11. Hypokalemia. 12. History of depression, on multiple medications. PLAN: Admit the patient to the ICU on telemetry. Follow vital signs closely. Begin banana bag for IV hydration. Continue with thiamine and vitamins in the banana bag and then eventually transition to oral medications. Follow electrolytes closely. She will need a [facility] protocol for watching for alcohol withdrawal. Will start scheduled Librium to prevent withdrawal. Continue to follow her CBC, INR daily and liver tests daily. She currently has a MELD score of 15, giving her a low to moderate risk in the next 3 months of mortality. When she is alert and past the period of possible alcohol withdrawal, she will need a Social Work mental health evaluation and alcoholism detox resources. She agrees that she should "dry out" during this hospitalization. In the past, she has gone through detoxification. When she is more awake, she can start physical therapy. According to the Orthopedist's note, weightbearing is okay but she will need bilateral short-leg boot walkers. Continue with her anxiolytics in order to prevent withdrawal from those. Continue with her beta lynn when systolic BP is greater than 100. Check a TSH, given the tachycardia. Hold the gabapentin and give hold orders on her other medications that can drop her pressure. Start Potassium replacement. Follow CMP and ammonia levels daily. Check a viral Hepatitis panel. DEEP VENOUS THROMBOSIS PROPHYLAXIS: SCD on the non-fractured leg. CODE STATUS: FULL CODE. ATTESTATION: The patient is expected to be discharged or transferred to another facility within 96 hours: Yes. cc: Royer Mathur MD TD: 11/20/2019 17:55 [facility]
[2019-11-20 20:02] LABS: MUDS CUTOFF CONCENTRATIONS CUTOFF CONC BELOW:
[2019-11-20] MEDS: chlordiazePOXIDE 5 MG CAPSULE PO SCH ×2 (20:04→21:43)
[2019-11-20 20:10] LABS: BILIRUBIN,URINE NEGATIVE (NEGATIVE); GLUCOSE, URINE (UA) NEGATIVE (NEGATIVE); KETONES,URINE (UA) NEGATIVE (NEGATIVE); LEUKOCYTE ESTERASE, URINE NEGATIVE (NEGATIVE); NITRITE,URINE NEGATIVE (NEGATIVE); OCCULT BLOOD,URINE NEGATIVE (NEGATIVE); PH,URINE 5.5 PH (5.0-7.5); PROTEIN,URINE NEGATIVE (NEGATIVE); UROBILINOGEN,URINE 0.2 (NORMAL) E.U./dL (NORMAL)
[2019-11-20 20:18] LABS: BACTERIA,URINE Many /HPF (None Seen); CLARITY,URINE HAZY (CLEAR); RBC,URINE None Seen /HPF (0-5); SQUAMOUS EPITHELIAL CELL,UR RARE Squamous (<= Few)
[2019-11-20 20:19] LABS: AMPHETAMINE SCREEN,URINE NEGATIVE (NEGATIVE); BENZODIAZEPINES SCREEN, URINE NEGATIVE (NEGATIVE); COCAINE SCREEN URINE NEGATIVE (NEGATIVE); METHADONE SCREEN, URINE NEGATIVE (NEGATIVE); METHAMPHETAMINES SCREEN, URINE NEGATIVE (NEGATIVE); OPIATE SCREEN, URINE NEGATIVE (NEGATIVE); OXYCODONE SCREEN, URINE NEGATIVE (NEGATIVE); PROPOXYPHENE SCREEN, URINE NEGATIVE (NEGATIVE); TRICYCLIC ANTIDEPRESSANT,URINE NEGATIVE (NEGATIVE)
[2019-11-20] MEDS: POTASSIUM CHLOR 10 MEQ/100 ML 10 MEQ/100 ML BAG IV SCH ×4 (20:31→23:49)
[2019-11-20] MEDS ORDERED: METOPROLOL SUCCINATE 25 MG TABLET PO SCH (21:00)
[2019-11-20] MEDS ORDERED: METOPROLOL 5 MG/5 ML VIAL IVP STA (21:14)
[2019-11-20] MEDS: traZODone 50 MG TABLET PO SCH (21:27)
[2019-11-20] MEDS: FAMOTIDINE 20 MG TABLET PO SCH (21:27)
[2019-11-20] MEDS: METOPROLOL SUCCINATE 25 MG TABLET PO SCH (21:27)
[2019-11-20] MEDS: SODIUM CHLORIDE FLUSH 0.9% 10 ML SYRINGE IVP SCH (22:39)
[2019-11-20 23:52] LABS: HGB - HEMOGLOBIN 8.5 g/dL (12.0-16.0)
[2019-11-21] MEDS: chlordiazePOXIDE 5 MG CAPSULE PO SCH ×5 (05:21→21:32)
[2019-11-21 05:29] LABS: INR 1.2 (0.8-1.2); PT - PROTHROMBIN TIME 13.9 secs (9.9-12.6)
[2019-11-21 05:40] LABS: ALBUMIN 2.5 g/dL (3.2-5.5); ALBUMIN/GLOBULIN RATIO 1.3 (1.0-2.2); BILIRUBIN,TOTAL 4.3 mg/dL (0.2-1.0); CALCIUM 7.6 mg/dL (8.5-10.3); CREATININE 0.8 mg/dL (0.4-1.0); MAGNESIUM 2.1 mg/dL (1.7-2.8); PHOSPHORUS 2.2 mg/dL (2.5-4.6); TOTAL PROTEIN 4.5 g/dL (6.7-8.2)
[2019-11-21] MEDS: POTASSIUM CHLOR 10 MEQ/100 ML 10 MEQ/100 ML BAG IV SCH ×4 (05:56→10:12)
[2019-11-21 07:42] LABS: HGB - HEMOGLOBIN 8.1 g/dL (12.0-16.0); MEAN CORPUSCULAR HGB CONC 33.1 g/dL (32.0-36.0); MEAN CORPUSCULAR VOLUME 108.9 fL (81.0-99.0); MEAN PLATELET VOLUME 13.5 fL (7.9-10.8); RED BLOOD COUNT 2.25 10^6/uL (4.20-5.40); RED CELL DISTRIBUTION WIDTH 17.3 % (12.0-15.0); WHITE BLOOD COUNT 3.5 x10^3/uL (4.8-10.8)
[2019-11-21] MEDS: FAMOTIDINE 20 MG TABLET PO SCH ×2 (08:23→20:51)
[2019-11-21] MEDS: busPIRone 5 MG TABLET PO SCH ×2 (08:25→20:51)
[2019-11-21] MEDS: DULoxetine 30 MG CAPSULE PO SCH (08:25)
[2019-11-21] MEDS: METOPROLOL SUCCINATE 25 MG TABLET PO SCH ×2 (08:26→20:51)
[2019-11-21] MEDS ORDERED: LACTULOSE 10 GM /15 ML UDC PO SCH (09:00)
[2019-11-21] MEDS ORDERED: LACTULOSE 10 GM/15 ML BOTTLE PR SCH (09:00)
--- NOTE | 2019-11-21 09:26 | PHARMACY PROGRESS NOTE ---
- Best Possible Medication History Admit Date and Time: 11/20/19 1722 Processed by: Pharmacy Medication History completed: Yes Secondary Source(s): Physician records, Pharmacy records, Insurance records As the person ultimately responsible for medication therapy, providers are able to order a medication from an existing home medication list in [facility] via the "Reconcile Routine" prior to Confirmation of that medication by supportive employment case manager. Such practice is discouraged except when the physician, in their clinical judgment, deems that a medical need exists for a medication without regard to previous use.
[2019-11-21] MEDS: HYDROmorphone 0.5 MG/0.5 ML SYRINGE IVP PRN ×3 (10:15→22:23)
[2019-11-21] MEDS ORDERED: SUMAtriptan 6 MG/0.5 ML VIAL SUBQ PRN (10:16)
[2019-11-21] MEDS: SODIUM CHLORIDE FLUSH 0.9% 10 ML SYRINGE IVP SCH ×3 (10:18→21:32)
--- NOTE | 2019-11-21 10:32 | PROVIDER PROGRESS NOTE ---
Subjective - General Admit Date: 11/20/19 - Review of Systems Musculoskeletal: positive: Leg pain (Her left leg has been immobilized in a long leg padded fiberglass splint applied yesterday in the emergency room. Her pain is under good control, has no symptoms or signs of compartment syndrome. She is in the intensive care unit at the present time. She is alert) Objective - Patient Data Vital Signs: Vital Signs x48h Temp Pulse Pulse Resp BP BP Pulse Ox 11/21/19 10:00 94 13 109/58 L 97 11/21/19 09:00 96 17 106/52 L 97 11/21/19 08:00 107 H 20 113/81 H 96 11/21/19 07:06 91/42 L 11/21/19 07:00 93 11 L 88/47 L 94 11/21/19 06:07 97/59 L 11/21/19 06:06 88/48 L 11/21/19 06:00 95 11 L 88/49 L 96 11/21/19 05:28 37.1 C 89 10 L 98 11/21/19 05:18 10 L 11/21/19 05:00 89 92 10 L 93/62 98 11/21/19 04:55 92 9 L 11/21/19 04:50 94 9 L 11/21/19 04:45 97 11 L 11/21/19 04:40 109 H 12 11/21/19 04:35 109 H 13 11/21/19 04:30 101 H 12 11/21/19 04:25 93 10 L 11/21/19 04:20 92 10 L 11/21/19 04:15 92 10 L 11/21/19 04:10 91 10 L 11/21/19 04:07 91 92/47 L 11/21/19 04:06 91 9 L 92/47 L 11/21/19 04:05 87 10 L 11/21/19 04:03 94 9 L 91/47 L 11/21/19 04:02 90 9 L 11/21/19 04:01 94 9 L 83/46 L 11/21/19 04:00 36.6 C 89 93 10 L 83/46 L 96 11/21/19 03:55 89 10 L 11/21/19 03:50 94 10 L 11/21/19 03:45 94 11 L 11/21/19 03:40 106 H 10 L 11/21/19 03:35 113 H 17 11/21/19 03:30 100 11 L 11/21/19 03:25 96 9 L 11/21/19 03:20 91 9 L 11/21/19 03:15 90 9 L 11/21/19 03:11 101/58 L 11/21/19 03:10 91 9 L 11/21/19 03:07 94 10 L 101/58 L 11/21/19 03:06 96 15 90/47 L 11/21/19 03:05 89 9 L 11/21/19 03:01 91 9 L 81/52 L 11/21/19 03:00 89 92 10 L 81/52 L 97 11/21/19 02:55 92 10 L 11/21/19 02:50 94 9 L 11/21/19 02:45 94 9 L 11/21/19 02:40 95 10 L 11/21/19 02:35 95 10 L Weight: Weight 11/19/19 11/20/19 11/21/19 23:59 23:59 23:59 Weight (kg) 79.5 kg 80 kg Intake & Output: Intake and Output Totals x24h 11/19/19 11/20/19 11/21/19 23:59 23:59 23:59 Intake Total 3262.667 2206.667 Output Total 100 1205 Balance 3162.667 1001.667 - Lab Results Lab Results: 11/21/19 07:30 11/21/19 04:56 Other Lab Results: Lab Results x24hrs 11/21/19 11/21/19 11/21/19 Range/Units 07:30 07:30 07:30 WBC 3.5 L (4.8-10.8) x10^3/uL RBC 2.25 L (4.20-5.40) 10^6/uL Hgb 8.1 L (12.0-16.0) g/dL Hct 24.5 L (37.0-47.0) % MCV 108.9 H (81.0-99.0) fL MCH 36.0 H (27.0-31.0) pg MCHC 33.1 (32.0-36.0) g/dL RDW 17.3 H (12.0-15.0) % Plt Count 29 L* (130-450) 10^3/uL MPV 13.5 H (7.9-10.8) fL Neut # (Auto) (1.5-6.6) 10^3/uL Lymph # (Auto) (1.5-3.5) 10^3/uL [place] # (Auto) (0.0-1.0) 10^3/uL Eos # (Auto) (0.0-0.7) 10^3/uL Baso # (Auto) (0.0-0.1) 10^3/uL Absolute Nucleated RBC x10^3/uL Nucleated RBC % /100WBC PT (9.9-12.6) secs INR (0.8-1.2) Sodium (135-145) mmol/L Potassium (3.5-5.0) mmol/L Chloride (101-111) mmol/L Carbon Dioxide (21-32) mmol/L Anion Gap (6-13) BUN (6-20) mg/dL Creatinine (0.4-1.0) mg/dL Estimated GFR (MDRD) (>89) Glucose (70-100) mg/dL Lactic Acid 2.2 (0.5-2.2) mmol/L Calcium (8.5-10.3) mg/dL Phosphorus (2.5-4.6) mg/dL Magnesium (1.7-2.8) mg/dL Total Bilirubin (0.2-1.0) mg/dL AST (10-42) IU/L ALT (10-60) IU/L Alkaline Phosphatase (42-121) IU/L Ammonia 45.8 H (7-35) umol/L Total Protein (6.7-8.2) g/dL Albumin (3.2-5.5) g/dL Globulin (2.1-4.2) g/dL Albumin/Globulin Ratio (1.0-2.2) Lipase (22-51) U/L TSH (0.34-5.60) uIU/mL Urine Color Urine Clarity (CLEAR) Urine pH (5.0-7.5) PH Ur Specific Odell (1.002-1.030) Urine Protein (NEGATIVE) mg/dL Urine Glucose (UA) (NEGATIVE) mg/dL Urine Ketones (NEGATIVE) mg/dL Urine Occult Blood (NEGATIVE) Urine Nitrite (NEGATIVE) Urine Bilirubin (NEGATIVE) Urine Urobilinogen (NORMAL) E.U./dL Ur Leukocyte Esterase (NEGATIVE) Urine RBC (0-5) /HPF Urine WBC (0-5) /HPF Ur Squamous Epith Cells (<= Few) Urine Bacteria (None Seen) /HPF Ur Microscopic Review Urine Culture Comments Nasal Screen MRSA (PCR) (NEGATIVE) Urine Opiates Screen (NEGATIVE) Ur Oxycodone Screen (NEGATIVE) Urine Methadone Screen (NEGATIVE) Ur Propoxyphene Screen (NEGATIVE) Ur Barbiturates Screen (NEGATIVE) Ur Tricyclics Screen (NEGATIVE) Ur Phencyclidine Scrn (NEGATIVE) Ur Amphetamine Screen (NEGATIVE) U Methamphetamines Scrn (NEGATIVE) U Benzodiazepines Scrn (NEGATIVE) Urine Cocaine Screen (NEGATIVE) U Cannabinoids Screen (NEGATIVE) Ethyl Alcohol mg/dL 11/21/19 11/21/19 11/21/19 Range/Units 04:56 04:56 04:56 WBC (4.8-10.8) x10^3/uL RBC (4.20-5.40) 10^6/uL Hgb (12.0-16.0) g/dL Hct (37.0-47.0) % MCV (81.0-99.0) fL MCH (27.0-31.0) pg MCHC (32.0-36.0) g/dL RDW (12.0-15.0) % Plt Count (130-450) 10^3/uL MPV (7.9-10.8) fL Neut # (Auto) (1.5-6.6) 10^3/uL Lymph # (Auto) (1.5-3.5) 10^3/uL [place] # (Auto) (0.0-1.0) 10^3/uL Eos # (Auto) (0.0-0.7) 10^3/uL Baso # (Auto) (0.0-0.1) 10^3/uL Absolute Nucleated RBC x10^3/uL Nucleated RBC % /100WBC PT 13.9 H (9.9-12.6) secs INR 1.2 (0.8-1.2) Sodium 132 L (135-145) mmol/L Potassium 3.4 L (3.5-5.0) mmol/L Chloride 98 L (101-111) mmol/L Carbon Dioxide 23 (21-32) mmol/L Anion Gap 11.0 (6-13) BUN 15 (6-20) mg/dL Creatinine 0.8 (0.4-1.0) mg/dL Estimated GFR (MDRD) 74 L (>89) Glucose 126 H (70-100) mg/dL Lactic Acid (0.5-2.2) mmol/L Calcium 7.6 L (8.5-10.3) mg/dL Phosphorus 2.2 L (2.5-4.6) mg/dL Magnesium 2.1 (1.7-2.8) mg/dL Total Bilirubin 4.3 H (0.2-1.0) mg/dL AST 195 H (10-42) IU/L ALT 132 H (10-60) IU/L Alkaline Phosphatase 587 H (42-121) IU/L Ammonia (7-35) umol/L Total Protein 4.5 L (6.7-8.2) g/dL Albumin 2.5 L (3.2-5.5) g/dL Globulin 2.0 L (2.1-4.2) g/dL Albumin/Globulin Ratio 1.3 (1.0-2.2) Lipase (22-51) U/L TSH 0.38 (0.34-5.60) uIU/mL Urine Color Urine Clarity (CLEAR) Urine pH (5.0-7.5) PH Ur Specific [place] (1.002-1.030) Urine Protein (NEGATIVE) mg/dL Urine Glucose (UA) (NEGATIVE) mg/dL Urine Ketones (NEGATIVE) mg/dL Urine Occult Blood (NEGATIVE) Urine Nitrite (NEGATIVE) Urine Bilirubin (NEGATIVE) Urine Urobilinogen (NORMAL) E.U./dL Ur Leukocyte Esterase (NEGATIVE) Urine RBC (0-5) /HPF Urine WBC (0-5) /HPF Ur Squamous Epith Cells (<= Few) Urine Bacteria (None Seen) /HPF Ur Microscopic Review Urine Culture Comments Nasal Screen MRSA (PCR) (NEGATIVE) Urine Opiates Screen (NEGATIVE) Ur Oxycodone Screen (NEGATIVE) Urine Methadone Screen (NEGATIVE) Ur Propoxyphene Screen (NEGATIVE) Ur Barbiturates Screen (NEGATIVE) Ur Tricyclics Screen (NEGATIVE) Ur Phencyclidine Scrn (NEGATIVE) Ur Amphetamine Screen (NEGATIVE) U Methamphetamines Scrn (NEGATIVE) U Benzodiazepines Scrn (NEGATIVE) Urine Cocaine Screen (NEGATIVE) U Cannabinoids Screen (NEGATIVE) Ethyl Alcohol 22.8 mg/dL 11/20/19 11/20/19 11/20/19 Range/Units 23:44 23:44 19:55 WBC (4.8-10.8) x10^3/uL RBC (4.20-5.40) 10^6/uL Hgb 8.5 L (12.0-16.0) g/dL Hct 25.5 L (37.0-47.0) % MCV (81.0-99.0) fL MCH (27.0-31.0) pg MCHC (32.0-36.0) g/dL RDW (12.0-15.0) % Plt Count (130-450) 10^3/uL MPV (7.9-10.8) fL Neut # (Auto) (1.5-6.6) 10^3/uL Lymph # (Auto) (1.5-3.5) 10^3/uL [place] # (Auto) (0.0-1.0) 10^3/uL Eos # (Auto) (0.0-0.7) 10^3/uL Baso # (Auto) (0.0-0.1) 10^3/uL Absolute Nucleated RBC x10^3/uL Nucleated RBC % /100WBC PT (9.9-12.6) secs INR (0.8-1.2) Sodium (135-145) mmol/L Potassium (3.5-5.0) mmol/L Chloride (101-111) mmol/L Carbon Dioxide (21-32) mmol/L Anion Gap (6-13) BUN (6-20) mg/dL Creatinine (0.4-1.0) mg/dL Estimated GFR (MDRD) (>89) Glucose (70-100) mg/dL Lactic Acid 5.6 H* (0.5-2.2) mmol/L Calcium (8.5-10.3) mg/dL Phosphorus (2.5-4.6) mg/dL Magnesium (1.7-2.8) mg/dL Total Bilirubin (0.2-1.0) mg/dL AST (10-42) IU/L ALT (10-60) IU/L Alkaline Phosphatase (42-121) IU/L Ammonia (7-35) umol/L Total Protein (6.7-8.2) g/dL Albumin (3.2-5.5) g/dL Globulin (2.1-4.2) g/dL Albumin/Globulin Ratio (1.0-2.2) Lipase (22-51) U/L TSH (0.34-5.60) uIU/mL Urine Color YELLOW Urine Clarity HAZY (CLEAR) Urine pH 5.5 (5.0-7.5) PH Ur Specific [place] 1.010 (1.002-1.030) Urine Protein NEGATIVE (NEGATIVE) mg/dL Urine Glucose (UA) NEGATIVE (NEGATIVE) mg/dL Urine Ketones NEGATIVE (NEGATIVE) mg/dL Urine Occult Blood NEGATIVE (NEGATIVE) Urine Nitrite NEGATIVE (NEGATIVE) Urine Bilirubin NEGATIVE (NEGATIVE) Urine Urobilinogen 0.2 (NORMAL) (NORMAL) E.U./dL Ur Leukocyte Esterase NEGATIVE (NEGATIVE) Urine RBC None Seen (0-5) /HPF Urine WBC 0-3 (0-5) /HPF Ur Squamous Epith Cells RARE Squamous (<= Few) Urine Bacteria Many H (None Seen) /HPF Ur Microscopic Review INDICATED Urine Culture Comments INDICATED Nasal Screen MRSA (PCR) (NEGATIVE) Urine Opiates Screen NEGATIVE (NEGATIVE) Ur Oxycodone Screen NEGATIVE (NEGATIVE) Urine Methadone Screen NEGATIVE (NEGATIVE) Ur Propoxyphene Screen NEGATIVE (NEGATIVE) Ur Barbiturates Screen NEGATIVE (NEGATIVE) Ur Tricyclics Screen NEGATIVE (NEGATIVE) Ur Phencyclidine Scrn NEGATIVE (NEGATIVE) Ur Amphetamine Screen NEGATIVE (NEGATIVE) U Methamphetamines Scrn NEGATIVE (NEGATIVE) U Benzodiazepines Scrn NEGATIVE (NEGATIVE) Urine Cocaine Screen NEGATIVE (NEGATIVE) U Cannabinoids Screen NEGATIVE (NEGATIVE) Ethyl Alcohol mg/dL 11/20/19 11/20/19 11/20/19 Range/Units 18:45 12:28 12:28 WBC (4.8-10.8) x10^3/uL RBC (4.20-5.40) 10^6/uL Hgb (12.0-16.0) g/dL Hct (37.0-47.0) % MCV (81.0-99.0) fL MCH (27.0-31.0) pg MCHC (32.0-36.0) g/dL RDW (12.0-15.0) % Plt Count (130-450) 10^3/uL MPV (7.9-10.8) fL Neut # (Auto) (1.5-6.6) 10^3/uL Lymph # (Auto) (1.5-3.5) 10^3/uL [place] # (Auto) (0.0-1.0) 10^3/uL Eos # (Auto) (0.0-0.7) 10^3/uL Baso # (Auto) (0.0-0.1) 10^3/uL Absolute Nucleated RBC x10^3/uL Nucleated RBC % /100WBC PT (9.9-12.6) secs INR (0.8-1.2) Sodium 135 (135-145) mmol/L Potassium 3.4 L (3.5-5.0) mmol/L Chloride 95 L (101-111) mmol/L Carbon Dioxide 21 (21-32) mmol/L Anion Gap 19.0 H (6-13) BUN 17 (6-20) mg/dL Creatinine 0.8 (0.4-1.0) mg/dL Estimated GFR (MDRD) 74 L (>89) Glucose 144 H (70-100) mg/dL Lactic Acid (0.5-2.2) mmol/L Calcium 9.1 (8.5-10.3) mg/dL Phosphorus 5.0 H (2.5-4.6) mg/dL Magnesium 2.1 (1.7-2.8) mg/dL Total Bilirubin 5.0 H (0.2-1.0) mg/dL AST 222 H (10-42) IU/L ALT 178 H (10-60) IU/L Alkaline Phosphatase 745 H (42-121) IU/L Ammonia 72.2 H (7-35) umol/L Total Protein 5.7 L (6.7-8.2) g/dL Albumin 3.1 L (3.2-5.5) g/dL Globulin 2.6 (2.1-4.2) g/dL Albumin/Globulin Ratio 1.2 (1.0-2.2) Lipase 32 (22-51) U/L TSH (0.34-5.60) uIU/mL Urine Color Urine Clarity (CLEAR) Urine pH (5.0-7.5) PH Ur Specific [place] (1.002-1.030) Urine Protein (NEGATIVE) mg/dL Urine Glucose (UA) (NEGATIVE) mg/dL Urine Ketones (NEGATIVE) mg/dL Urine Occult Blood (NEGATIVE) Urine Nitrite (NEGATIVE) Urine Bilirubin (NEGATIVE) Urine Urobilinogen (NORMAL) E.U./dL Ur Leukocyte Esterase (NEGATIVE) Urine RBC (0-5) /HPF Urine WBC (0-5) /HPF Ur Squamous Epith Cells (<= Few) Urine Bacteria (None Seen) /HPF Ur Microscopic Review Urine Culture Comments Nasal Screen MRSA (PCR) NEGATIVE (NEGATIVE) Urine Opiates Screen (NEGATIVE) Ur Oxycodone Screen (NEGATIVE) Urine Methadone Screen (NEGATIVE) Ur Propoxyphene Screen (NEGATIVE) Ur Barbiturates Screen (NEGATIVE) Ur Tricyclics Screen (NEGATIVE) Ur Phencyclidine Scrn (NEGATIVE) Ur Amphetamine Screen (NEGATIVE) U Methamphetamines Scrn (NEGATIVE) U Benzodiazepines Scrn (NEGATIVE) Urine Cocaine Screen (NEGATIVE) U Cannabinoids Screen (NEGATIVE) Ethyl Alcohol 181.2 mg/dL 11/20/19 11/20/19 Range/Units 12:28 12:28 WBC 3.4 L (4.8-10.8) x10^3/uL RBC 3.16 L (4.20-5.40) 10^6/uL Hgb 11.1 L (12.0-16.0) g/dL Hct 32.7 L (37.0-47.0) % MCV 103.5 H (81.0-99.0) fL MCH 35.1 H (27.0-31.0) pg MCHC 33.9 (32.0-36.0) g/dL RDW 18.8 H (12.0-15.0) % Plt Count 36 L (130-450) 10^3/uL MPV 12.4 H (7.9-10.8) fL Neut # (Auto) 1.6 (1.5-6.6) 10^3/uL Lymph # (Auto) 1.6 (1.5-3.5) 10^3/uL [place] # (Auto) 0.2 (0.0-1.0) 10^3/uL Eos # (Auto) 0.0 (0.0-0.7) 10^3/uL Baso # (Auto) 0.0 (0.0-0.1) 10^3/uL Absolute Nucleated RBC 0.00 x10^3/uL Nucleated RBC % 0.0 /100WBC PT 14.7 H (9.9-12.6) secs INR 1.3 H (0.8-1.2) Sodium (135-145) mmol/L Potassium (3.5-5.0) mmol/L Chloride (101-111) mmol/L Carbon Dioxide (21-32) mmol/L Anion Gap (6-13) BUN (6-20) mg/dL Creatinine (0.4-1.0) mg/dL Estimated GFR (MDRD) (>89) Glucose (70-100) mg/dL Lactic Acid (0.5-2.2) mmol/L Calcium (8.5-10.3) mg/dL Phosphorus (2.5-4.6) mg/dL Magnesium (1.7-2.8) mg/dL Total Bilirubin (0.2-1.0) mg/dL AST (10-42) IU/L ALT (10-60) IU/L Alkaline Phosphatase (42-121) IU/L Ammonia (7-35) umol/L Total Protein (6.7-8.2) g/dL Albumin (3.2-5.5) g/dL Globulin (2.1-4.2) g/dL Albumin/Globulin Ratio (1.0-2.2) Lipase (22-51) U/L TSH (0.34-5.60) uIU/mL Urine Color Urine Clarity (CLEAR) Urine pH (5.0-7.5) PH Ur Specific [place] (1.002-1.030) Urine Protein (NEGATIVE) mg/dL Urine Glucose (UA) (NEGATIVE) mg/dL Urine Ketones (NEGATIVE) mg/dL Urine Occult Blood (NEGATIVE) Urine Nitrite (NEGATIVE) Urine Bilirubin (NEGATIVE) Urine Urobilinogen (NORMAL) E.U./dL Ur Leukocyte Esterase (NEGATIVE) Urine RBC (0-5) /HPF Urine WBC (0-5) /HPF Ur Squamous Epith Cells (<= Few) Urine Bacteria (None Seen) /HPF Ur Microscopic Review Urine Culture Comments Nasal Screen MRSA (PCR) (NEGATIVE) Urine Opiates Screen (NEGATIVE) Ur Oxycodone Screen (NEGATIVE) Urine Methadone Screen (NEGATIVE) Ur Propoxyphene Screen (NEGATIVE) Ur Barbiturates Screen (NEGATIVE) Ur Tricyclics Screen (NEGATIVE) Ur Phencyclidine Scrn (NEGATIVE) Ur Amphetamine Screen (NEGATIVE) U Methamphetamines Scrn (NEGATIVE) U Benzodiazepines Scrn (NEGATIVE) Urine Cocaine Screen (NEGATIVE) U Cannabinoids Screen (NEGATIVE) Ethyl Alcohol mg/dL - Current Medications Current Medications: Current Medications Generic Name Dose Route Start Last Admin Trade Name Freq PRN Reason Stop Dose Admin Buspirone HCl 15 mg 11/21/19 09:00 11/21/19 08:25 Buspar PO 15 mg BID ENDER Administration Chlordiazepoxide HCl 10 mg 11/20/19 18:00 11/21/19 09:57 Librium PO 5 mg TID ENDER Administration Duloxetine HCl 60 mg 11/21/19 09:00 11/21/19 08:25 Cymbalta PO 60 mg DAILY ENDER Administration Famotidine 20 mg 11/20/19 21:00 11/21/19 08:23 Pepcid PO 20 mg BID ENDER Administration Hydromorphone HCl 0.5 mg 11/20/19 17:22 11/21/19 10:15 Dilaudid Inj Syringe IVP 0.5 mg Q2H PRN Administration Pain 8 to 10 Multivitamins 10 ml/ Folic 1,015.2 mls @ 100 mls/hr 11/20/19 17:30 11/21/19 06:04 Acid 1 mg/ Thiamine HCl 100 mg IV 11/23/19 17:29 0 mls/hr / Magnesium Sulfate 2 gm/ DAILY ENDER Infusion Sodium Chloride Lactulose 60 gm 11/21/19 09:00 11/21/19 08:26 Lactulose DE 60 gm DAILY ENDER Administration Lactulose 10 gm 11/21/19 09:00 11/21/19 09:49 Enulose PO 10 gm DAILY ENDER Administration Metoprolol Succinate 25 mg 11/20/19 21:00 11/21/19 08:26 Toprol Xl PO 25 mg BID ENDER Administration Sodium Chloride 10 ml 11/21/19 01:00 11/21/19 10:18 Normal Saline Flush 0.9% IVP Not Given 0100,0900,1700 ENDER Trazodone HCl 150 mg 11/20/19 21:00 11/20/19 21:27 Desyrel PO Not Given QPM ENDER - Physical Exam Extremities: positive: Other (The long leg splint left leg is intact. Neurovascular status to the left foot is intact. Right ankle shows less s welling and less pain with movement, right ankle mortise stable. She moves both upper extremities well.) Impression/Plan - Problem List Problem List: Her primary orthopedic problem is the proximal fibular fracture. This does not appear to be associated with disruption of the ankle mortise but follow-up x- rays and examination will be helpful in the future to reevaluate. I would continue the present long leg fiberglass splint. When she is out of the intensive care unit, bilateral short leg boot walker is can be applied to assist in ambulation. She has a stable sprain to the lateral collateral ligaments of the right ankle.
[2019-11-21] MEDS: cephALEXin 250 MG CAPSULE PO SCH ×3 (12:40→23:09)
[2019-11-21] MEDS: VENLAFAXINE ER 75 MG CAPSULE PO SCH (12:40)
--- NOTE | 2019-11-21 12:42 | PROVIDER PROGRESS NOTE ---
Assessment/Plan - Problem List (1) Sepsis due to gram-negative UTI Assessment/Plan: Patient had elevated lactic acid level and hypotension with tachycardia and evidence of infection (with an abnormal urinalysis). Lactic acid of 5.6 has normalized to 2.2 today. Urine culture is rapidly turning positive. She is growing gram-negative rods. There was no blood cultures done since she did not have a fever. Continue with IV hydration, monitoring for needing blood transfusion and starting to treat the infection. We will start antibiotics, choosing Keflex. Await culture and sensitivity results of the urine culture. In the ICU today. (2) Hypotension Assessment/Plan: Blood pressures are still 90-100 systolic. She is slightly less tachycardic, heart rates are in the 90s to 110s. Etiologies are possibly from sepsis given the high lactic acid level and positive UTI and volume depletion plus anemia. Continue with banana bag infusion today. Advance diet as tolerated. Monitor hemoglobin, platelet count, electrolytes daily. Will order an EKG which was not done as a routine on admission, she may also need troponins and an Echo. We will order a stool guaiac since the hemoglobin is dropping. Main in the ICU today. (3) Hepatic encephalopathy Assessment/Plan: She has been started on lactulose 10 g daily and 60 mg per rectum daily. Ammonia level has decreased from 74-48 with that. Librium is on a scheduled dose which may also add to lethargy (4) Alcoholic hepatitis Qualifiers: Ascites presence: unspecified Qualified Code(s): K70.10 - Alcoholic hepatit is without ascites Assessment/Plan: Elevated LFTs have improved, elevated INR has normalized, bilirubin is still elevated, ammonia is improved but still abnormal, thrombocytopenia is worse. Viral hepatitis titers are pending. Monitor CMP daily (5) Alcohol intoxication Qualifiers: Complication of substance-induced condition: uncomplicated Qualified Code(s): F10.920 - Alcohol use, unspecified with intoxication, uncomplicated Assessment/Plan: There was still alcohol present in the bloodstream on today's morning blood test. Watch for alcohol withdrawal, CIWA protocol with as needed Ativan IV is ordered. Librium is ordered scheduled to get her through this without going through withdrawal. Remain in the ICU today. (6) Multiple contusions Assessment/Plan: She described having at least 3 falls at home yesterday. I suspect she was orthostatic plus intoxicated causing the falls. Pain medications ordered as needed. Watch for enlarging bruises, given the dropping platelet count. (7) Facial contusion Qualifiers: Encounter type: initial encounter Qualified Code(s): S00.83XA - Contusion of other part of head, initial encounter Assessment/Plan: As above (8) Fracture of left proximal fibula Qualifiers: Encounter type: initial encounter Fracture type: closed Fracture morphology: unspecified fracture morphology Qualified Code(s): S82.832A - Other fracture of upper and lower end of left fibula, initial encounter for closed fracture Assessment/Plan: Pain medications are ordered. NSAIDs need to be avoided with her thrombocytopenia and risk of varices being present. Physical therapy may start today. The orthopedic surgeon wrote that she needs a special kind of boot to ambulate. PT has a gel stirrup that may help her ambulate. (9) Thrombocytopenia Assessment/Plan: Her low platelet count at admission of 36K has dropped further to 29K. Watch CBC daily. Transfuse if platelets are under 10K. (10) Anemia Assessment/Plan: Hemoglobin dropped from 11 at admission down to 8.5, then 8.1. She is 4 liters positive and fluid status therefore the drop is only partly hemodilutional. He is on empiric meds for stress ulcer prophylaxis. Will order a stool guaiac since the hemoglobin is dropping. Follow CBC daily or q12h. We will check B12, folate levels and iron stores. Replace if low. Would transfuse if hemoglobin under 7. Remain in the ICU today. (11) Hypokalemia Assessment/Plan: Replace with potassium riders and p.o. Follow potassium daily (12) Migraine Assessment/Plan: We will order her home dose of sumatriptan to be used. - Current Meds Current Meds: Current Medications Generic Name Dose Route Start Last Admin Trade Name Freq PRN Reason Stop Dose Admin Buspirone HCl 15 mg 11/21/19 09:00 11/21/19 08:25 Buspar PO 15 mg BID ENDER Administration Cephalexin 250 mg 11/21/19 12:00 11/21/19 12:40 Keflex PO 250 mg Q6HR ENDER Administration Chlordiazepoxide HCl 10 mg 11/20/19 18:00 11/21/19 09:57 Librium PO 5 mg TID ENDER Administration Duloxetine HCl 60 mg 11/21/19 09:00 11/21/19 08:25 Cymbalta PO 60 mg DAILY ENDER Administration Famotidine 20 mg 11/20/19 21:00 11/21/19 08:23 Pepcid PO 20 mg BID ENDER Administration Hydromorphone HCl 0.5 mg 11/20/19 17:22 11/21/19 10:15 Dilaudid Inj Syringe IVP 0.5 mg Q2H PRN Administration Pain 8 to 10 Multivitamins 10 ml/ Folic 1,015.2 mls @ 100 mls/hr 11/20/19 17:30 11/21/19 10:10 Acid 1 mg/ Thiamine HCl 100 mg IV 11/23/19 17:29 100 mls/hr / Magnesium Sulfate 2 gm/ DAILY ENDER Infusion Sodium Chloride Lactulose 60 gm 11/21/19 09:00 11/21/19 08:26 Lactulose WV 60 gm DAILY ENDER Administration Lactulose 10 gm 11/21/19 09:00 11/21/19 09:49 Enulose PO 10 gm DAILY ENDER Administration Metoprolol Succinate 25 mg 11/20/19 21:00 11/21/19 08:26 Toprol Xl PO 25 mg BID ENDER Administration Sodium Chloride 10 ml 11/21/19 01:00 11/21/19 10:18 Normal Saline Flush 0.9% IVP Not Given 0100,0900,1700 ENDER Sumatriptan Succinate 6 mg 11/21/19 10:16 11/21/19 10:38 Imitrex Inj SUBQ 11/26/19 10:15 6 mg ONCE PRN Administration MIGRAINE Trazodone HCl 150 mg 11/20/19 21:00 11/20/19 21:27 Desyrel PO Not Given QPM ENDER Venlafaxine HCl 75 mg 11/21/19 09:00 11/21/19 12:40 Effexor Er PO 75 mg DAILY ENDER Administration - Lab Result Fish Bone Diagrams: 11/21/19 07:30 11/21/19 04:56 - Additional Planning My Orders: My Active Orders 11/20/19 17:22 Activity Orders [RC] Q2HR Daily Weight [RC] 0600 Skinner Insertion [RC] QSHIFT IO [RC] Q1HR Initiate Bowel Care Protocol [RC] QSHIFT Initiate ICU Electrolyte Prot. [RC] .protocol Initiate Line Care Protocol [RC] .protocol Initiate Personal Care Protoco [RC] .protocol HYDROmorphone INJ SYRINGE [Dilaudid Inj Syringe] 0.5 mg IVP Q2H PRN Ondansetron Inj [Zofran Inj] 4 mg IVP Q6HR PRN Sodium Chloride Flush 0.9% [Normal Saline Flush 0.9%] 10 ml IVP PRN PRN Code Status [OTHERS] Routine Condition of Patient [OTHERS] Routine DVT Prophylaxis [OTHERS] Routine 11/20/19 17:25 Blood Glucose POC [RC] Routine Telemetry- [RC] Q4HR Vital Signs [RC] Q1HR 11/20/19 17:26 Oxygen Therapy [RC] .PRN SCDs [RC] QSHIFT 11/20/19 17:28 Initiate Line Care Protocol [RC] QSHIFT 11/20/19 17:30 Multivitamin [Infuvite] 10 ml Folic Acid Inj 1 mg Thiamine Inj [Vitamin B-1 Inj] 100 mg Magnesium Sulfate 2 gm Sodium Chloride 0.9% [Normal Saline 0.9%] 1,000 ml IV DAILY 11/20/19 17:31 CIWA - AR Score Card [RC] Q2H Q2H Neuro Check [RC] Routine Routine LORazepam INJ [Ativan Inj (Vial)] 1 mg IVP Q30M PRN 11/20/19 18:00 chlordiazePOXIDE [Librium] 10 mg PO TID 11/20/19 18:05 Ondansetron Odt [Zofran Odt] 4 mg TL Q6HR PRN 11/20/19 19:55 CUL, URINE [RM] Routine 11/20/19 21:00 Famotidine [Pepcid] 20 mg PO BID Metoprolol Succinate [Toprol Xl] 25 mg PO BID traZODone [Desyrel] 150 mg PO QPM 11/21/19 01:00 Sodium Chloride Flush 0.9% [Normal Saline Flush 0.9%] 10 ml IVP 0100,0900,1700 11/21/19 04:56 HEPATITIS A IGM [REFLAB] DAILY HEPATITIS B CORE AB TOTAL [REFLAB] DAILYLAB HEPATITIS B SURFACE AB QN IMM [REFLAB] DAILYLAB HEPATITIS C AB RFLX RNA QN [REFLAB] DAILYLAB 11/21/19 09:00 DULoxetine [Cymbalta] 60 mg PO DAILY Venlafaxine ER [Effexor ER] 75 mg PO DAILY busPIRone [Buspar] 15 mg PO BID 11/21/19 10:16 Sumatriptan Inj [Imitrex Inj] 6 mg SUBQ ONCE PRN 11/21/19 12:00 cephALEXin [Keflex] 250 mg PO Q6HR 11/21/19 Lunch DIET [Soft (Low Fiber) Diet] [DIET] 11/22/19 05:00 COMPREHENSIVE METABOLIC PANEL [CHEM] DAILYLAB PT WITH INR [COAG] DAILYLAB 11/23/19 05:00 COMPREHENSIVE METABOLIC PANEL [CHEM] DAILYLAB PT WITH INR [COAG] DAILYLAB 11/24/19 05:00 COMPREHENSIVE METABOLIC PANEL [CHEM] DAILYLAB PT WITH INR [COAG] DAILYLAB Subjective - Subjective Patient Reports: Feeling Better Objective Vital Signs: Vital Signs - 24 hr 11/20/19 11/20/19 11/20/19 12:55 13:25 13:30 Temperature Heart Rate 116 H 117 H 119 H Heart Rate [ Monitoring electrodes] Respiratory 11 L 13 15 Rate Blood Pressure 117/78 108/68 128/65 Blood Pressure [Right Brachial artery] O2 Saturation 100 99 100 11/20/19 11/20/19 11/20/19 14:00 14:30 15:00 Temperature Heart Rate 110 H 109 H 113 H Heart Rate [ Monitoring electrodes] Respiratory 12 10 L 11 L Rate Blood Pressure 108/69 83/54 L 91/54 L Blood Pressure [Right Brachial artery] O2 Saturation 97 100 98 11/20/19 11/20/19 11/20/19 15:30 16:00 16:30 Temperature Heart Rate 113 H 111 H 115 H Heart Rate [ Monitoring electrodes] Respiratory 11 L 9 L 13 Rate Blood Pressure 97/86 H 96/66 102/69 Blood Pressure [Right Brachial artery] O2 Saturation 98 99 100 11/20/19 11/20/19 11/20/19 17:00 17:30 18:00 Temperature 36.9 C Heart Rate 115 H 120 H Heart Rate [ 105 H Monitoring electrodes] Respiratory 12 13 12 Rate Blood Pressure 90/42 L 87/54 L Blood Pressure 124/71 [Right Brachial artery] O2 Saturation 97 98 95 11/20/19 11/20/19 11/20/19 18:12 18:13 18:14 Temperature Heart Rate 104 H Heart Rate [ Monitoring electrodes] Respiratory 15 Rate Blood Pressure 124/71 124/71 Blood Pressure [Right Brachial artery] O2 Saturation 11/20/19 11/20/19 11/20/19 18:15 18:20 18:25 Temperature Heart Rate 110 H 107 H 112 H Heart Rate [ Monitoring electrodes] Respiratory 16 13 17 Rate Blood Pressure Blood Pressure [Right Brachial artery] O2 Saturation 11/20/19 11/20/19 11/20/19 18:30 18:35 18:40 Temperature Heart Rate 120 H 123 H 131 H Heart Rate [ Monitoring electrodes] Respiratory 13 15 16 Rate Blood Pressure Blood Pressure [Right Brachial artery] O2 Saturation 11/20/19 11/20/19 11/20/19 18:45 18:50 18:55 Temperature Heart Rate 118 H 110 H 117 H Heart Rate [ Monitoring electrodes] Respiratory 18 14 15 Rate Blood Pressure Blood Pressure [Right Brachial artery] O2 Saturation 11/20/19 11/20/19 11/20/19 19:00 19:05 19:10 Temperature Heart Rate 115 H 132 H 120 H Heart Rate [ Monitoring electrodes] Respiratory 21 17 19 Rate Blood Pressure Blood Pressure [Right Brachial artery] O2 Saturation 11/20/19 11/20/19 11/20/19 19:15 19:20 19:25 Temperature Heart Rate 128 H 118 H 123 H Heart Rate [ 119 H Monitoring electrodes] Respiratory 17 17 14 Rate Blood Pressure Blood Pressure 122/79 [Right Brachial artery] O2 Saturation 99 11/20/19 11/20/19 11/20/19 19:26 19:30 19:35 Temperature Heart Rate 112 H 126 H 117 H Heart Rate [ Monitoring electrodes] Respiratory 15 18 17 Rate Blood Pressure 122/79 Blood Pressure [Right Brachial artery] O2 Saturation 11/20/19 11/20/19 11/20/19 19:40 19:45 19:50 Temperature Heart Rate 114 H 123 H 117 H Heart Rate [ Monitoring electrodes] Respiratory 18 18 17 Rate Blood Pressure Blood Pressure [Right Brachial artery] O2 Saturation 11/20/19 11/20/19 11/20/19 19:55 20:00 20:01 Temperature Heart Rate 121 H 112 H 111 H Heart Rate [ 114 H Monitoring electrodes] Respiratory 15 15 15 Rate Blood Pressure 114/75 Blood Pressure 114/75 [Right Brachial artery] O2 Saturation 99 11/20/19 11/20/19 11/20/19 20:05 20:10 20:15 Temperature Heart Rate 111 H 118 H 124 H Heart Rate [ Monitoring electrodes] Respiratory 13 12 16 Rate Blood Pressure Blood Pressure [Right Brachial artery] O2 Saturation 11/20/19 11/20/19 11/20/19 20:20 20:25 20:30 Temperature Heart Rate 124 H 118 H 123 H Heart Rate [ Monitoring electrodes] Respiratory 17 14 14 Rate Blood Pressure Blood Pressure [Right Brachial artery] O2 Saturation 11/20/19 11/20/19 11/20/19 20:35 20:40 20:45 Temperature Heart Rate 123 H 118 H 116 H Heart Rate [ Monitoring electrodes] Respiratory 12 10 L 10 L Rate Blood Pressure Blood Pressure [Right Brachial artery] O2 Saturation 11/20/19 11/20/19 11/20/19 20:50 20:55 21:00 Temperature 37.1 C Heart Rate 112 H 114 H 112 H Heart Rate [ 110 H Monitoring electrodes] Respiratory 9 L 9 L 9 L Rate Blood Pressure Blood Pressure 96/59 L [Right Brachial artery] O2 Saturation 96 11/20/19 11/20/19 11/20/19 21:01 21:05 21:26 Temperature Heart Rate 111 H 107 H Heart Rate [ 106 H Monitoring electrodes] Respiratory 8 L 8 L Rate Blood Pressure 96/59 L Blood Pressure 99/71 [Right Brachial artery] O2 Saturation 11/20/19 11/20/19 11/20/19 21:30 21:31 21:32 Temperature Heart Rate 102 H Heart Rate [ 105 H Monitoring electrodes] Respiratory 7 L Rate Blood Pressure 100/63 99/58 L Blood Pressure 100/63 [Right Brachial artery] O2 Saturation 11/20/19 11/20/19 11/20/19 21:35 21:36 21:40 Temperature Heart Rate 91 90 88 Heart Rate [ 93 92 Monitoring electrodes] Respiratory 8 L 8 L 8 L Rate Blood Pressure 88/54 L Blood Pressure 88/54 L 80/66 L [Right Brachial artery] O2 Saturation 95 11/20/19 11/20/19 11/20/19 21:41 21:45 21:46 Temperature Heart Rate 89 90 91 Heart Rate [ 92 Monitoring electrodes] Respiratory 8 L 8 L 8 L Rate Blood Pressure 80/66 L 98/49 L Blood Pressure 98/49 L [Right Brachial artery] O2 Saturation 96 11/20/19 11/20/19 11/20/19 21:50 21:55 22:00 Temperature Heart Rate 89 87 92 Heart Rate [ 93 Monitoring electrodes] Respiratory 8 L 8 L 7 L Rate Blood Pressure Blood Pressure 95/59 L [Right Brachial artery] O2 Saturation 11/20/19 11/20/19 11/20/19 22:01 22:05 22:10 Temperature Heart Rate 94 93 93 Heart Rate [ Monitoring electrodes] Respiratory 8 L 7 L 8 L Rate Blood Pressure 95/59 L Blood Pressure [Right Brachial artery] O2 Saturation 11/20/19 11/20/19 11/20/19 22:15 22:16 22:20 Temperature Heart Rate 91 88 89 Heart Rate [ 91 Monitoring electrodes] Respiratory 8 L 8 L 8 L Rate Blood Pressure 96/54 L Blood Pressure 96/54 L [Right Brachial artery] O2 Saturation 96 11/20/19 11/20/19 11/20/19 22:25 22:30 22:31 Temperature Heart Rate 88 102 H 95 Heart Rate [ 96 Monitoring electrodes] Respiratory 9 L 7 L 8 L Rate Blood Pressure 91/54 L Blood Pressure 91/54 L [Right Brachial artery] O2 Saturation 11/20/19 11/20/19 11/20/19 22:35 22:40 22:45 Temperature Heart Rate 92 90 93 Heart Rate [ Monitoring electrodes] Respiratory 9 L 9 L 8 L Rate Blood Pressure Blood Pressure [Right Brachial artery] O2 Saturation 11/20/19 11/20/19 11/20/19 22:50 22:55 23:00 Temperature Heart Rate 95 96 88 Heart Rate [ 91 Monitoring electrodes] Respiratory 8 L 8 L 7 L Rate Blood Pressure Blood Pressure 100/55 L [Right Brachial artery] O2 Saturation 94 11/20/19 11/20/19 11/20/19 23:01 23:05 23:10 Temperature Heart Rate 91 91 93 Heart Rate [ Monitoring electrodes] Respiratory 7 L 9 L 7 L Rate Blood Pressure 100/55 L Blood Pressure [Right Brachial artery] O2 Saturation 11/20/19 11/20/19 11/20/19 23:15 23:20 23:25 Temperature Heart Rate 91 87 89 Heart Rate [ Monitoring electrodes] Respiratory 8 L 9 L 8 L Rate Blood Pressure Blood Pressure [Right Brachial artery] O2 Saturation 11/20/19 11/20/19 11/20/19 23:30 23:35 23:40 Temperature Heart Rate 90 90 95 Heart Rate [ Monitoring electrodes] Respiratory 8 L 8 L 8 L Rate Blood Pressure Blood Pressure [Right Brachial artery] O2 Saturation 11/20/19 11/20/19 11/20/19 23:45 23:50 23:55 Temperature Heart Rate 91 91 104 H Heart Rate [ Monitoring electrodes] Respiratory 8 L 7 L 9 L Rate Blood Pressure Blood Pressure [Right Brachial artery] O2 Saturation 11/21/19 11/21/19 11/21/19 00:00 00:01 00:05 Temperature Heart Rate 95 93 92 Heart Rate [ 90 Monitoring electrodes] Respiratory 8 L 8 L 8 L Rate Blood Pressure 101/64 Blood Pressure 101/64 [Right Brachial artery] O2 Saturation 93 11/21/19 11/21/19 11/21/19 00:10 00:15 00:20 Temperature Heart Rate 87 92 89 Heart Rate [ Monitoring electrodes] Respiratory 8 L 9 L 7 L Rate Blood Pressure Blood Pressure [Right Brachial artery] O2 Saturation 11/21/19 11/21/19 11/21/19 00:25 00:30 00:35 Temperature Heart Rate 84 94 90 Heart Rate [ Monitoring electrodes] Respiratory 8 L 10 L 8 L Rate Blood Pressure Blood Pressure [Right Brachial artery] O2 Saturation 11/21/19 11/21/19 11/21/19 00:40 00:45 00:50 Temperature Heart Rate 90 90 89 Heart Rate [ Monitoring electrodes] Respiratory 9 L 8 L 6 L Rate Blood Pressure Blood Pressure [Right Brachial artery] O2 Saturation 11/21/19 11/21/19 11/21/19 00:55 01:00 01:01 Temperature 36.2 C L Heart Rate 98 86 88 Heart Rate [ 88 Monitoring electrodes] Respiratory 11 L 15 7 L Rate Blood Pressure 96/55 L Blood Pressure 96/55 L [Right Brachial artery] O2 Saturation 95 11/21/19 11/21/19 11/21/19 01:05 01:20 01:25 Temperature Heart Rate 86 88 93 Heart Rate [ Monitoring electrodes] Respiratory 10 L 8 L 8 L Rate Blood Pressure Blood Pressure [Right Brachial artery] O2 Saturation 11/21/19 11/21/19 11/21/19 01:30 01:35 01:40 Temperature Heart Rate 94 86 94 Heart Rate [ Monitoring electrodes] Respiratory 8 L 9 L 8 L Rate Blood Pressure Blood Pressure [Right Brachial artery] O2 Saturation 11/21/19 11/21/19 11/21/19 01:45 01:50 01:55 Temperature Heart Rate 87 91 98 Heart Rate [ Monitoring electrodes] Respiratory 10 L 8 L 9 L Rate Blood Pressure Blood Pressure [Right Brachial artery] O2 Saturation 11/21/19 11/21/19 11/21/19 02:00 02:01 02:05 Temperature Heart Rate 97 93 103 H Heart Rate [ 99 Monitoring electrodes] Respiratory 11 L 11 L 14 Rate Blood Pressure 102/76 Blood Pressure 102/76 [Right Brachial artery] O2 Saturation 96 11/21/19 11/21/19 11/21/19 02:10 02:15 02:20 Temperature Heart Rate 104 H 96 92 Heart Rate [ Monitoring electrodes] Respiratory 15 9 L 10 L Rate Blood Pressure Blood Pressure [Right Brachial artery] O2 Saturation 11/21/19 11/21/19 11/21/19 02:25 02:30 02:35 Temperature Heart Rate 92 94 95 Heart Rate [ Monitoring electrodes] Respiratory 9 L 9 L 10 L Rate Blood Pressure Blood Pressure [Right Brachial artery] O2 Saturation 11/21/19 11/21/19 11/21/19 02:40 02:45 02:50 Temperature Heart Rate 95 94 94 Heart Rate [ Monitoring electrodes] Respiratory 10 L 9 L 9 L Rate Blood Pressure Blood Pressure [Right Brachial artery] O2 Saturation 11/21/19 11/21/19 11/21/19 02:55 03:00 03:01 Temperature Heart Rate 92 89 91 Heart Rate [ 92 Monitoring electrodes] Respiratory 10 L 10 L 9 L Rate Blood Pressure 81/52 L Blood Pressure 81/52 L [Right Brachial artery] O2 Saturation 97 11/21/19 11/21/19 11/21/19 03:05 03:06 03:07 Temperature Heart Rate 89 96 94 Heart Rate [ Monitoring electrodes] Respiratory 9 L 15 10 L Rate Blood Pressure 90/47 L 101/58 L Blood Pressure [Right Brachial artery] O2 Saturation 11/21/19 11/21/19 11/21/19 03:10 03:11 03:15 Temperature Heart Rate 91 90 Heart Rate [ Monitoring electrodes] Respiratory 9 L 9 L Rate Blood Pressure Blood Pressure 101/58 L [Right Brachial artery] O2 Saturation 11/21/19 11/21/19 11/21/19 03:20 03:25 03:30 Temperature Heart Rate 91 96 100 Heart Rate [ Monitoring electrodes] Respiratory 9 L 9 L 11 L Rate Blood Pressure Blood Pressure [Right Brachial artery] O2 Saturation 11/21/19 11/21/19 11/21/19 03:35 03:40 03:45 Temperature Heart Rate 113 H 106 H 94 Heart Rate [ Monitoring electrodes] Respiratory 17 10 L 11 L Rate Blood Pressure Blood Pressure [Right Brachial artery] O2 Saturation 11/21/19 11/21/19 11/21/19 03:50 03:55 04:00 Temperature 36.6 C Heart Rate 94 89 89 Heart Rate [ 93 Monitoring electrodes] Respiratory 10 L 10 L 10 L Rate Blood Pressure Blood Pressure 83/46 L [Right Brachial artery] O2 Saturation 96 11/21/19 11/21/19 11/21/19 04:01 04:02 04:03 Temperature Heart Rate 94 90 94 Heart Rate [ Monitoring electrodes] Respiratory 9 L 9 L 9 L Rate Blood Pressure 83/46 L 91/47 L Blood Pressure [Right Brachial artery] O2 Saturation 11/21/19 11/21/19 11/21/19 04:05 04:06 04:07 Temperature Heart Rate 87 91 Heart Rate [ 91 Monitoring electrodes] Respiratory 10 L 9 L Rate Blood Pressure 92/47 L Blood Pressure 92/47 L [Right Brachial artery] O2 Saturation 11/21/19 11/21/19 11/21/19 04:10 04:15 04:20 Temperature Heart Rate 91 92 92 Heart Rate [ Monitoring electrodes] Respiratory 10 L 10 L 10 L Rate Blood Pressure Blood Pressure [Right Brachial artery] O2 Saturation 11/21/19 11/21/19 11/21/19 04:25 04:30 04:35 Temperature Heart Rate 93 101 H 109 H Heart Rate [ Monitoring electrodes] Respiratory 10 L 12 13 Rate Blood Pressure Blood Pressure [Right Brachial artery] O2 Saturation 11/21/19 11/21/19 11/21/19 04:40 04:45 04:50 Temperature Heart Rate 109 H 97 94 Heart Rate [ Monitoring electrodes] Respiratory 12 11 L 9 L Rate Blood Pressure Blood Pressure [Right Brachial artery] O2 Saturation 11/21/19 11/21/19 11/21/19 04:55 05:00 05:18 Temperature Heart Rate 92 89 Heart Rate [ 92 Monitoring electrodes] Respiratory 9 L 10 L 10 L Rate Blood Pressure Blood Pressure 93/62 [Right Brachial artery] O2 Saturation 98 11/21/19 11/21/19 11/21/19 05:28 06:00 06:06 Temperature 37.1 C Heart Rate 89 Heart Rate [ 95 Monitoring electrodes] Respiratory 10 L 11 L Rate Blood Pressure Blood Pressure 88/49 L 88/48 L [Right Brachial artery] O2 Saturation 98 96 11/21/19 11/21/19 11/21/19 06:07 07:00 07:06 Temperature Heart Rate Heart Rate [ 93 Monitoring electrodes] Respiratory 11 L Rate Blood Pressure Blood Pressure 97/59 L 88/47 L 91/42 L [Right Brachial artery] O2 Saturation 94 11/21/19 11/21/19 11/21/19 08:00 09:00 10:00 Temperature Heart Rate Heart Rate [ 107 H 96 94 Monitoring electrodes] Respiratory 20 17 13 Rate Blood Pressure Blood Pressure 113/81 H 106/52 L 109/58 L [Right Brachial artery] O2 Saturation 96 97 97 11/21/19 11/21/19 11:00 12:00 Temperature 38.0 C H Heart Rate Heart Rate [ 94 112 H Monitoring electrodes] Respiratory 14 14 Rate Blood Pressure Blood Pressure 113/73 121/84 H [Right Brachial artery] O2 Saturation 95 93 Oxygen O2 Source Room air I&O (Last 24 Hrs): Intake and Output Totals x24h 11/19/19 11/20/19 11/21/19 23:59 23:59 23:59 Intake Total 3262.667 2446.667 Output Total 100 1455 Balance 3162.667 991.667 HEENT: Mucous membr. moist/pink, Other (Multiple bruises) Neck: Supple Neuro: Alert, Other (Not tremulous) Cardiovascular: Regular rate Respiratory: No respiratory distress Abdomen: Soft Extremities: Other (Multiple bruises, L lower leg in splint) - Results Results: Laboratory Results WBC 3.5 x10^3/uL (4.8-10.8) L 11/21/19 07:30 RBC 2.25 10^6/uL (4.20-5.40) L 11/21/19 07:30 Hgb 8.1 g/dL (12.0-16.0) L 11/21/19 07:30 Hct 24.5 % (37.0-47.0) L 11/21/19 07:30 MCV 108.9 fL (81.0-99.0) H 11/21/19 07:30 MCH 36.0 pg (27.0-31.0) H 11/21/19 07:30 MCHC 33.1 g/dL (32.0-36.0) 11/21/19 07:30 RDW 17.3 % (12.0-15.0) H 11/21/19 07:30 Plt Count 29 10^3/uL (130-450) L* 11/21/19 07:30 MPV 13.5 fL (7.9-10.8) H 11/21/19 07:30 Neut # (Auto) 1.6 10^3/uL (1.5-6.6) 11/20/19 12:28 Lymph # (Auto) 1.6 10^3/uL (1.5-3.5) 11/20/19 12:28 Cat[place] # (Auto) 0.2 10^3/uL (0.0-1.0) 11/20/19 12:28 Eos # (Auto) 0.0 10^3/uL (0.0-0.7) 11/20/19 12:28 Baso # (Auto) 0.0 10^3/uL (0.0-0.1) 11/20/19 12:28 Absolute Nucleated RBC 0.00 x10^3/uL 11/20/19 12:28 Nucleated RBC % 0.0 /100WBC 11/20/19 12:28 PT 13.9 secs (9.9-12.6) H 11/21/19 04:56 INR 1.2 (0.8-1.2) 11/21/19 04:56 Sodium 132 mmol/L (135-145) L 11/21/19 04:56 Potassium 3.4 mmol/L (3.5-5.0) L 11/21/19 04:56 Chloride 98 mmol/L (101-111) L 11/21/19 04:56 Carbon Dioxide 23 mmol/L (21-32) 11/21/19 04:56 Anion Gap 11.0 (6-13) 11/21/19 04:56 BUN 15 mg/dL (6-20) 11/21/19 04:56 Creatinine 0.8 mg/dL (0.4-1.0) 11/21/19 04:56 Estimated GFR (MDRD) 74 (>89) L 11/21/19 04:56 Glucose 126 mg/dL (70-100) H 11/21/19 04:56 POC Whole Bld Glucose 251 mg/dL (70 - 100) H 11/20/19 19:53 Lactic Acid 2.2 mmol/L (0.5-2.2) 11/21/19 07:30 Calcium 7.6 mg/dL (8.5-10.3) L 11/21/19 04:56 Phosphorus 2.2 mg/dL (2.5-4.6) L 11/21/19 04:56 Magnesium 2.1 mg/dL (1.7-2.8) 11/21/19 04:56 Total Bilirubin 4.3 mg/dL (0.2-1.0) H 11/21/19 04:56 AST 195 IU/L (10-42) H 11/21/19 04:56 ALT 132 IU/L (10-60) H 11/21/19 04:56 Alkaline Phosphatase 587 IU/L (42-121) H 11/21/19 04:56 Ammonia 45.8 umol/L (7-35) H 11/21/19 07:30 Total Protein 4.5 g/dL (6.7-8.2) L 11/21/19 04:56 Albumin 2.5 g/dL (3.2-5.5) L 11/21/19 04:56 Globulin 2.0 g/dL (2.1-4.2) L 11/21/19 04:56 Albumin/Globulin Ratio 1.3 (1.0-2.2) 11/21/19 04:56 Lipase 32 U/L (22-51) 11/20/19 12:28 TSH 0.38 uIU/mL (0.34-5.60) 11/21/19 04:56 Urine Color YELLOW 11/20/19 19:55 Urine Clarity HAZY (CLEAR) 11/20/19 19:55 Urine pH 5.5 PH (5.0-7.5) 11/20/19 19:55 Ur Specific [place] 1.010 (1.002-1.030) 11/20/19 19:55 Urine Protein NEGATIVE mg/dL (NEGATIVE) 11/20/19 19:55 Urine Glucose (UA) NEGATIVE mg/dL (NEGATIVE) 11/20/19 19:55 Urine Ketones NEGATIVE mg/dL (NEGATIVE) 11/20/19 19:55 Urine Occult Blood NEGATIVE (NEGATIVE) 11/20/19 19:55 Urine Nitrite NEGATIVE (NEGATIVE) 11/20/19 19:55 Urine Bilirubin NEGATIVE (NEGATIVE) 11/20/19 19:55 Urine Urobilinogen 0.2 (NORMAL) E.U./dL (NORMAL) 11/20/19 19:55 Ur Leukocyte Esterase NEGATIVE (NEGATIVE) 11/20/19 19:55 Urine RBC None Seen /HPF (0-5) 11/20/19 19:55 Urine WBC 0-3 /HPF (0-5) 11/20/19 19:55 Ur Squamous Epith Cells RARE Squamous (<= Few) 11/20/19 19:55 Urine Bacteria Many /HPF (None Seen) H 11/20/19 19:55 Ur Microscopic Review INDICATED 11/20/19 19:55 Urine Culture Comments INDICATED 11/20/19 19:55 Nasal Screen MRSA (PCR) NEGATIVE (NEGATIVE) 11/20/19 18:45 Urine Opiates Screen NEGATIVE (NEGATIVE) 11/20/19 19:55 Ur Oxycodone Screen NEGATIVE (NEGATIVE) 11/20/19 19:55 Urine Methadone Screen NEGATIVE (NEGATIVE) 11/20/19 19:55 Ur Propoxyphene Screen NEGATIVE (NEGATIVE) 11/20/19 19:55 Ur Barbiturates Screen NEGATIVE (NEGATIVE) 11/20/19 19:55 Ur Tricyclics Screen NEGATIVE (NEGATIVE) 11/20/19 19:55 Ur Phencyclidine Scrn NEGATIVE (NEGATIVE) 11/20/19 19:55 Ur Amphetamine Screen NEGATIVE (NEGATIVE) 11/20/19 19:55 U Methamphetamines Scrn NEGATIVE (NEGATIVE) 11/20/19 19:55 U Benzodiazepines Scrn NEGATIVE (NEGATIVE) 11/20/19 19:55 Urine Cocaine Screen NEGATIVE (NEGATIVE) 11/20/19 19:55 U Cannabinoids Screen NEGATIVE (NEGATIVE) 11/20/19 19:55 Ethyl Alcohol 22.8 mg/dL 11/21/19 04:56
[2019-11-21] MEDS ORDERED: COD LIVER OIL/ZINC OXIDE 113 GM TUBE TOP PRN (13:53)
[2019-11-21] MEDS ORDERED: MULTIVITAMIN 10 ML, FOLIC ACID INJ 1 MG, THIAMINE INJ 100 MG, MAGNESIUM SULFATE 2 GM in... IV SCH ×5 (16:00)
[2019-11-21] MEDS: PANTOPRAZOLE 40 MG TABLET PO SCH (16:23)
[2019-11-21] MEDS: traZODone 50 MG TABLET PO SCH ×2 (21:32→23:26)
[2019-11-21] MEDS: LORazepam 2 MG/ML VIAL IVP PRN (23:58)
[2019-11-22] MEDS: chlordiazePOXIDE 5 MG CAPSULE PO SCH ×2 (05:03→17:35)
[2019-11-22] MEDS: cephALEXin 250 MG CAPSULE PO SCH ×4 (05:03→23:04)
[2019-11-22 05:04] LABS: MEAN CORPUSCULAR HEMOGLOBIN 35.7 pg (27.0-31.0); MEAN CORPUSCULAR HGB CONC 32.4 g/dL (32.0-36.0); MEAN CORPUSCULAR VOLUME 110.3 fL (81.0-99.0); MEAN PLATELET VOLUME 12.4 fL (7.9-10.8); RED BLOOD COUNT 2.24 10^6/uL (4.20-5.40); RED CELL DISTRIBUTION WIDTH 17.6 % (12.0-15.0); WHITE BLOOD COUNT 2.5 x10^3/uL (4.8-10.8)
[2019-11-22 05:06] LABS: INR 1.1 (0.8-1.2); PT - PROTHROMBIN TIME 12.9 secs (9.9-12.6)
[2019-11-22 05:17] LABS: ALBUMIN 2.4 g/dL (3.2-5.5); BILIRUBIN,TOTAL 6.5 mg/dL (0.2-1.0); CALCIUM 7.7 mg/dL (8.5-10.3); CREATININE 0.5 mg/dL (0.4-1.0); TOTAL PROTEIN 4.9 g/dL (6.7-8.2)
[2019-11-22 05:38] LABS: FOLATE 21.06 ng/mL (5.90 - >24.8)
[2019-11-22] MEDS: LORazepam 2 MG/ML VIAL IVP PRN ×4 (06:18→20:45)
[2019-11-22] MEDS: PANTOPRAZOLE 40 MG TABLET PO SCH (06:21)
--- NOTE | 2019-11-22 08:09 | PROVIDER PROGRESS NOTE ---
Assessment/Plan - Problem List (1) Alcohol withdrawal hallucinosis Assessment/Plan: This morning she reported seeing people in her room that were not there. Her CIWA score mark anthony to 12. She needs IV Ativan dosing starting today. She may need to remain in the ICU today in case she needs an Ativan drip or Prec edex drip, for getting through alcohol withdrawal. (2) Sepsis due to gram-negative UTI Assessment/Plan: BP had normalized, Lactic acid normal yesterday, WBC has been low everyday but this may be due to marrow suppression from alcohol abuse Continue antibiotics. (3) Hypotension Assessment/Plan: Resolved overnight, then dropped to 89 systolic, after got morning Ativan iv after Librium. The banana bag stopped today. We will consider low-dose IV fluids if her oral fluid intake is inadequate to maintain blood pressure. (4) E. coli UTI Assessment/Plan: The urine is growing E coli and sensitivities show it is bauer-sensitive Continue po Keflex for a (probable) 7 day total course (5) Urinary retention Assessment/Plan: Yesterday the Skinner was removed after she was not hypotensive. She then had urinary retention yesterday evening and a Skinner was reinserted. Due to the diarrhea and acute urinary retention, will continue Skinner for 1-2 more days. (6) Hepatic encephalopathy Assessment/Plan: Ammonia level at admission 72>>< 45>> 49 today Improved mentation with Lactulose, as of yesterday afternoon. It was ordered both po and per rectum (intended to be either one, depending on if she was awake enough to swallow). Will continue just the oral Lactulose, titrate to 3 soft BMs daily. Will schedule a taper down of the Librium doses (ordered to prevent alcohol withdrawal), and taper down to off over the next 3-4 days. [facility] protocol is in place for managing alcohol withdrawal. She still had alcohol in her serum on yesterday's labs. Withdrawal started today (see above). She is not yet mentally cleared for a SW consult regarding alcohol abuse, detox, etc, until she is through the phase of withdrawal.. (7) Alcoholic hepatitis Qualifiers: Ascites presence: unspecified Qualified Code(s): K70.10 - Alcoholic hepatitis without ascites Assessment/Plan: LFTs possibly improving: AST 222>> 195>> up to 210 today, ALT 178>> 132>> 127 today Bili 5>> 4.3>> up to 6.5 today INR has normalized Plts are still very low at 28K today. She did have a heme (+) guaic result Watch for overt bleeding she has overt bleeding or if plt count < 10K. If there is GI hemorrhage, such as coffee grounds or black or maroon stools, she would need transfer to a facility that can manage esophageal varices. (8) Fracture of left proximal fibula Qualifiers: Encounter type: initial encounter Fracture type: closed Fracture morpholo gy: unspecified fracture morphology Qualified Code(s): S82.832A - Other fracture of upper and lower end of left fibula, initial encounter for closed fracture Assessment/Plan: She got a L lower leg splint by Orthopedics at admission in ER, then the Orthopod wanted leg boots. PT found gel stirrups to use. The orthopod does not want the stirrups on when she is in bed. PT started yesterday, but she could not do much due to frequent liquid BMs. Pain control appears to be adequate. (9) Thrombocytopenia Assessment/Plan: A sign of her excessive alcohol abuse Plts are still severely low Watch for overt bleeding Would transfuse a aleyda of plts if she has overt bleeding or if plt count < 10K (10) Anemia Qualifiers: Anemia type: iron deficiency Assessment/Plan: Blood loss and marrow suppression from alcohol suspected. Since here, she also has some hemodilutional Hgb drop (from 11 to 8). Guaic of stool returned (+) yesterday afternoon. Protonix started. Would transfuse PRBCs if hemorrhage or if symptomatic (SOB, orthostatic) or if Hgb drops to < 7 Watch CBC daily. Start Iron replacement today, orally. (11) Anemia due to GI blood loss Assessment/Plan: Watch for garrick blood in diarrhea PUD prophylaxis started Soft foods orderedc, in case she has esophageal varices (12) Hypokalemia Assessment/Plan: Related to likely poor intake. Replace Follow BMP daily. Will request Nutrition consult (13) Hypophosphatemia Assessment/Plan: Replace Check PTH Will request Nutrition consult Follow serum PO4 daily (14) Multiple contusions Assessment/Plan: No fractures per imaging done at admission (15) Facial contusion Qualifiers: Encounter type: subsequent encounter Qualified Code(s): S00.83XD - Contusion of other part of head, subsequent encounter Assessment/Plan: No fractures per imaging done in ER at admission (16) LBBB (left bundle branch block) Assessment/Plan: An EKG was done after admission, due to her hypotension. LBBB seen on EKG, which was present before. There is a suspicion she has alcoholic cardiomyopathy, given the LBBB. An Echo was ordered due to hypotension and abnormal EKG. We do not have Echo over the weekend, today is Saturday. (17) Migraine Assessment/Plan: She needed her Sumatriptin restarted yesterday for a migraine - Current Meds Current Meds: Current Medications Generic Name Dose Route Start Last Admin Trade Name Freq PRN Reason Stop Dose Admin Buspirone HCl 15 mg 11/21/19 09:00 11/21/19 20:51 Buspar PO 15 mg BID ENDER Administration Cephalexin 250 mg 11/21/19 12:00 11/22/19 05:03 Keflex PO 250 mg Q6HR ENDER Administration Chlordiazepoxide HCl 10 mg 11/20/19 18:00 11/22/19 05:03 Librium PO 11/22/19 23:00 10 mg TID ENDER Administration Duloxetine HCl 60 mg 11/21/19 09:00 11/21/19 08:25 Cymbalta PO 60 mg DAILY ENDER Administration Famotidine 20 mg 11/20/19 21:00 11/21/19 20:51 Pepcid PO 20 mg BID ENDER Administration Hydromorphone HCl 0.5 mg 11/20/19 17:22 11/21/19 22:23 Dilaudid Inj Syringe IVP 0.5 mg Q2H PRN Administration Pain 8 to 10 Multivitamins 10 ml/ Folic 1,015.2 mls @ 100 mls/hr 11/21/19 16:00 11/22/19 01:55 Acid 1 mg/ Thiamine HCl 100 mg IV 11/23/19 17:29 Infused / Magnesium Sulfate 2 gm/ DAILY ENDER Infusion Sodium Chloride Lactulose 10 gm 11/21/19 09:00 11/21/19 09:49 Enulose PO 10 gm DAILY ENDER Administration Lorazepam 1 mg 11/20/19 17:31 11/22/19 06:18 Ativan Inj (Vial) IVP 1 mg Q30M PRN Administration CIWA >8 Protocol Metoprolol Succinate 25 mg 11/20/19 21:00 11/21/19 20:51 Toprol Xl PO 25 mg BID ENDER Administration Pantoprazole Sodium 40 mg 11/21/19 16:00 11/22/19 06:21 Protonix PO 40 mg QDAC ENDER Administration Sodium Chloride 10 ml 11/21/19 01:00 11/21/19 21:32 Normal Saline Flush 0.9% IVP 10 ml 0100,0900,1700 ENDER Administration Sumatriptan Succinate 6 mg 11/21/19 10:16 11/21/19 10:38 Imitrex Inj SUBQ 11/26/19 10:15 6 mg ONCE PRN Administration MIGRAINE Trazodone HCl 150 mg 11/20/19 21:00 11/21/19 23:26 Desyrel PO 150 mg QPM ENDER Administration Venlafaxine HCl 75 mg 11/21/19 09:00 11/21/19 12:40 Effexor Er PO 75 mg DAILY ENDER Administration - Lab Result Fish Bone Diagrams: 11/22/19 04:45 11/22/19 04:45 - Additional Planning My Orders: My Active Orders 11/21/19 09:00 DULoxetine [Cymbalta] 60 mg PO DAILY Venlafaxine ER [Effexor ER] 75 mg PO DAILY busPIRone [Buspar] 15 mg PO BID 11/21/19 10:16 Sumatriptan Inj [Imitrex Inj] 6 mg SUBQ ONCE PRN 11/21/19 12:00 cephALEXin [Keflex] 250 mg PO Q6HR 11/21/19 13:45 Miscellaenous Nursing Order [RC] QSHIFT 11/21/19 13:53 Cod Liver Oil/Zinc Oxide [Desitin] 113 gm TOP PRN PRN 11/21/19 16:00 Multivitamin [Infuvite] 10 ml Folic Acid Inj 1 mg Thiamine Inj [Vitamin B-1 Inj] 100 mg Magnesium Sulfate 2 gm Sodium Chloride 0.9% [Normal Saline 0.9%] 1,000 ml IV DAILY Pantoprazole [Protonix] 40 mg PO QDAC 11/21/19 Lunch DIET [Soft (Low Fiber) Diet] [DIET] 11/22/19 08:00 Skinner Discontinuation [RC] ONCE Ferrous Gluconate [Fergon] 324 mg PO DAILYWM Vitamin [Trinatal Rx 1] 1 tab PO DAILYWM 11/22/19 09:00 Thiamine [Vitamin B-1] 100 mg PO DAILY 11/23/19 05:00 AMMONIA [CHEM] DAILYLAB COMPREHENSIVE METABOLIC PANEL [CHEM] DAILYLAB PT WITH INR [COAG] DAILYLAB 11/23/19 08:00 Echo Transthoracic Complete [ECHO] Routine 11/23/19 08:05 Nutrition Consult [CONS] Routine 11/23/19 09:00 chlordiazePOXIDE [Librium] 5 mg PO TID 11/24/19 05:00 COMPREHENSIVE METABOLIC PANEL [CHEM] DAILYLAB PT WITH INR [COAG] DAILYLAB 11/24/19 09:00 chlordiazePOXIDE [Librium] 5 mg PO 0900,1800 Subjective - Subjective Patient Reports: Other (Yesterday she was speaking normally and not tremulous on the scheduled Librium, today she is somnolent after getting Ativan this morning for withdrawal) Nursing Reports: Other (This morning she reported seeing people in the room that are not there to her nurse. She needed Ativan for a CIWA score of 12.) Objective Vital Signs: Vital Signs - 24 hr 11/21/19 11/21/19 11/21/19 09:00 10:00 11:00 Temperature Heart Rate [ 96 94 94 Monitoring electrodes] Heart Rate [ Supine] Respiratory 17 13 14 Rate Blood Pressure 106/52 L 109/58 L 113/73 [Right Brachial artery] Blood Pressure [Supine] O2 Saturation 97 97 95 11/21/19 11/21/19 11/21/19 12:00 13:00 14:00 Temperature 38.0 C H Heart Rate [ 112 H 103 H 105 H Monitoring electrodes] Heart Rate [ Supine] Respiratory 14 17 17 Rate Blood Pressure 121/84 H 105/69 105/69 [Right Brachial artery] Blood Pressure [Supine] O2 Saturation 93 95 11/21/19 11/21/19 11/21/19 14:52 15:00 16:00 Temperature 36.7 C Heart Rate [ 90 92 Monitoring electrodes] Heart Rate [ 109 H Supine] Respiratory 19 22 Rate Blood Pressure 97/68 119/69 [Right Brachial artery] Blood Pressure 105/69 [Supine] O2 Saturation 96 95 11/21/19 11/21/19 11/21/19 16:58 17:00 18:00 Temperature 36.8 C Heart Rate [ 88 93 97 Monitoring electrodes] Heart Rate [ Supine] Respiratory 20 14 16 Rate Blood Pressure 113/52 L 113/52 L 110/64 [Right Brachial artery] Blood Pressure [Supine] O2 Saturation 97 97 11/21/19 11/21/19 11/21/19 19:00 20:00 21:00 Temperature Heart Rate [ 92 95 87 Monitoring electrodes] Heart Rate [ Supine] Respiratory 16 15 11 L Rate Blood Pressure 123/60 126/68 102/68 [Right Brachial artery] Blood Pressure [Supine] O2 Saturation 92 95 98 11/21/19 11/21/19 11/22/19 22:00 23:00 00:00 Temperature Heart Rate [ 90 94 95 Monitoring electrodes] Heart Rate [ Supine] Respiratory 14 13 13 Rate Blood Pressure 90/80 101/67 91/58 L [Right Brachial artery] Blood Pressure [Supine] O2 Saturation 97 96 98 11/22/19 11/22/19 11/22/19 01:00 02:00 03:00 Temperature Heart Rate [ 88 86 85 Monitoring electrodes] Heart Rate [ Supine] Respiratory 10 L 10 L 9 L Rate Blood Pressure 86/55 L 90/49 L 92/57 L [Right Brachial artery] Blood Pressure [Supine] O2 Saturation 94 95 95 11/22/19 11/22/19 11/22/19 04:00 05:00 06:00 Temperature 37.4 C 36.9 C Heart Rate [ 93 92 96 Monitoring electrodes] Heart Rate [ Supine] Respiratory 12 12 18 Rate Blood Pressure 110/68 108/68 109/76 [Right Brachial artery] Blood Pressure [Supine] O2 Saturation 96 97 97 11/22/19 07:00 Temperature Heart Rate [ 91 Monitoring electrodes] Heart Rate [ Supine] Respiratory 18 Rate Blood Pressure 116/96 H [Right Brachial artery] Blood Pressure [Supine] O2 Saturation 97 Oxygen O2 Source Room air I&O (Last 24 Hrs): Intake and Output Totals x24h 11/20/19 11/21/19 11/22/19 23:59 23:59 23:59 Intake Total 3262.667 4768.533 1630.2 Output Total 100 3645 520 Balance 3162.667 4540.899 0074.2 General: Other (sleeping, arousable) HEENT: Mucous membr. moist/pink, Other (Swollen bridge of nose but not ecchymotic. Large purple bruise of the chin present) Neck: Supple Neuro: Other (Currently sleeping.) Cardiovascular: Regular rate Respiratory: No respiratory distress Abdomen: Normal bowel sounds, Soft, Other (Not distended.) Extremities: No edema, Other (Multiple ecchymoses noted of upper and lower extremities. The left lower extremity is in a splint.) - Results Results: Laboratory Results WBC 2.5 x10^3/uL (4.8-10.8) L 11/22/19 04:45 RBC 2.24 10^6/uL (4.20-5.40) L 11/22/19 04:45 Hgb 8.0 g/dL (12.0-16.0) L 11/22/19 04:45 Hct 24.7 % (37.0-47.0) L 11/22/19 04:45 MCV 110.3 fL (81.0-99.0) H 11/22/19 04:45 MCH 35.7 pg (27.0-31.0) H 11/22/19 04:45 MCHC 32.4 g/dL (32.0-36.0) 11/22/19 04:45 RDW 17.6 % (12.0-15.0) H 11/22/19 04:45 Plt Count 28 10^3/uL (130-450) L* 11/22/19 04:45 MPV 12.4 fL (7.9-10.8) H 11/22/19 04:45 Neut # (Auto) 1.6 10^3/uL (1.5-6.6) 11/20/19 12:28 Lymph # (Auto) 1.6 10^3/uL (1.5-3.5) 11/20/19 12:28 [place] # (Auto) 0.2 10^3/uL (0.0-1.0) 11/20/19 12:28 Eos # (Auto) 0.0 10^3/uL (0.0-0.7) 11/20/19 12:28 Baso # (Auto) 0.0 10^3/uL (0.0-0.1) 11/20/19 12:28 Absolute Nucleated RBC 0.00 x10^3/uL 11/20/19 12:28 Nucleated RBC % 0.0 /100WBC 11/20/19 12:28 PT 12.9 secs (9.9-12.6) H 11/22/19 04:45 INR 1.1 (0.8-1.2) 11/22/19 04:45 Sodium 133 mmol/L (135-145) L 11/22/19 04:45 Potassium 3.5 mmol/L (3.5-5.0) 11/22/19 04:45 Chloride 100 mmol/L (101-111) L 11/22/19 04:45 Carbon Dioxide 24 mmol/L (21-32) 11/22/19 04:45 Anion Gap 9.0 (6-13) 11/22/19 04:45 BUN 6 mg/dL (6-20) 11/22/19 04:45 Creatinine 0.5 mg/dL (0.4-1.0) 11/22/19 04:45 Estimated GFR (MDRD) 127 (>89) 11/22/19 04:45 Glucose 141 mg/dL (70-100) H 11/22/19 04:45 POC Whole Bld Glucose 251 mg/dL (70 - 100) H 11/20/19 19:53 Lactic Acid 2.2 mmol/L (0.5-2.2) 11/21/19 07:30 Calcium 7.7 mg/dL (8.5-10.3) L 11/22/19 04:45 Phosphorus 2.2 mg/dL (2.5-4.6) L 11/21/19 04:56 Magnesium 2.1 mg/dL (1.7-2.8) 11/21/19 04:56 Iron 128 ug/dL (28-170) 11/22/19 04:45 TIBC 137 ug/dL (250-450) L 11/22/19 04:45 % Saturation 93 % (20-50) H 11/22/19 04:45 Transferrin 98 mg/dL (192-382) L 11/22/19 04:45 Total Bilirubin 6.5 mg/dL (0.2-1.0) H 11/22/19 04:45 AST 210 IU/L (10-42) H 11/22/19 04:45 ALT 127 IU/L (10-60) H 11/22/19 04:45 Alkaline Phosphatase 591 IU/L (42-121) H 11/22/19 04:45 Ammonia 49.5 umol/L (7-35) H 11/22/19 04:45 Total Protein 4.9 g/dL (6.7-8.2) L 11/22/19 04:45 Albumin 2.4 g/dL (3.2-5.5) L 11/22/19 04:45 Globulin 2.5 g/dL (2.1-4.2) 11/22/19 04:45 Albumin/Globulin Ratio 1.0 (1.0-2.2) 11/22/19 04:45 Lipase 32 U/L (22-51) 11/20/19 12:28 Vitamin B12 1460 pg/mL (180-914) H 11/22/19 04:45 Folate 21.06 ng/mL (5.90 - >24.8) 11/22/19 04:45 TSH 0.38 uIU/mL (0.34-5.60) 11/21/19 04:56 Urine Color YELLOW 11/20/19 19:55 Urine Clarity HAZY (CLEAR) 11/20/19 19:55 Urine pH 5.5 PH (5.0-7.5) 11/20/19 19:55 Ur Specific [place] 1.010 (1.002-1.030) 11/20/19 19:55 Urine Protein NEGATIVE mg/dL (NEGATIVE) 11/20/19 19:55 Urine Glucose (UA) NEGATIVE mg/dL (NEGATIVE) 11/20/19 19:55 Urine Ketones NEGATIVE mg/dL (NEGATIVE) 11/20/19 19:55 Urine Occult Blood NEGATIVE (NEGATIVE) 11/20/19 19:55 Urine Nitrite NEGATIVE (NEGATIVE) 11/20/19 19:55 Urine Bilirubin NEGATIVE (NEGATIVE) 11/20/19 19:55 Urine Urobilinogen 0.2 (NORMAL) E.U./dL (NORMAL) 11/20/19 19:55 Ur Leukocyte Esterase NEGATIVE (NEGATIVE) 11/20/19 19:55 Urine RBC None Seen /HPF (0-5) 11/20/19 19:55 Urine WBC 0-3 /HPF (0-5) 11/20/19 19:55 Ur Squamous Epith Cells RARE Squamous (<= Few) 11/20/19 19:55 Urine Bacteria Many /HPF (None Seen) H 11/20/19 19:55 Ur Microscopic Review INDICATED 11/20/19 19:55 Urine Culture Comments INDICATED 11/20/19 19:55 Nasal Screen MRSA (PCR) NEGATIVE (NEGATIVE) 11/20/19 18:45 Urine Opiates Screen NEGATIVE (NEGATIVE) 11/20/19 19:55 Ur Oxycodone Screen NEGATIVE (NEGATIVE) 11/20/19 19:55 Urine Methadone Screen NEGATIVE (NEGATIVE) 11/20/19 19:55 Ur Propoxyphene Screen NEGATIVE (NEGATIVE) 11/20/19 19:55 Ur Barbiturates Screen NEGATIVE (NEGATIVE) 11/20/19 19:55 Ur Tricyclics Screen NEGATIVE (NEGATIVE) 11/20/19 19:55 Ur Phencyclidine Scrn NEGATIVE (NEGATIVE) 11/20/19 19:55 Ur Amphetamine Screen NEGATIVE (NEGATIVE) 11/20/19 19:55 U Methamphetamines Scrn NEGATIVE (NEGATIVE) 11/20/19 19:55 U Benzodiazepines Scrn NEGATIVE (NEGATIVE) 11/20/19 19:55 Urine Cocaine Screen NEGATIVE (NEGATIVE) 11/20/19 19:55 U Cannabinoids Screen NEGATIVE (NEGATIVE) 11/20/19 19:55 Ethyl Alcohol 22.8 mg/dL 11/21/19 04:56
[2019-11-22] MEDS: DULoxetine 30 MG CAPSULE PO SCH (08:21)
[2019-11-22] MEDS: busPIRone 5 MG TABLET PO SCH ×2 (08:22→20:06)
[2019-11-22] MEDS: FAMOTIDINE 20 MG TABLET PO SCH ×2 (08:22→20:07)
[2019-11-22] MEDS: METOPROLOL SUCCINATE 25 MG TABLET PO SCH ×2 (08:22→20:05)
[2019-11-22] MEDS: VENLAFAXINE ER 75 MG CAPSULE PO SCH (08:22)
[2019-11-22] MEDS: SODIUM CHLORIDE FLUSH 0.9% 10 ML SYRINGE IVP SCH ×2 (08:45→17:00)
--- NOTE | 2019-11-22 10:51 | PROVIDER PROGRESS NOTE ---
Subjective - General Admit Date: 11/20/19 - Review of Systems Musculoskeletal: positive: Leg pain (Her left leg has been immobilized in a long leg padded fiberglass splint applied yesterday in the emergency room. Her pain is under good control, has no symptoms or signs of compartment syndrome. She is in the intensive care unit at the present time. She is alert) Psychiatric: positive: Other (She has altered mental status so obtaining a history is quite difficult. She seems to be comfortable and not having any specific issues with her left fibular fracture or her sprain to her right ankle. She remains in the intensive care unit and is being treated for complications of alcoholism) Objective - Patient Data Vital Signs: Vital Signs x48h Temp Pulse Resp BP Pulse Ox 11/22/19 09:00 81 14 92/55 L 95 11/22/19 08:00 36.6 C 83 14 100/57 L 95 11/22/19 07:00 91 18 116/96 H 97 11/22/19 06:00 36.9 C 96 18 109/76 97 11/22/19 05:00 92 12 108/68 97 11/22/19 04:00 37.4 C 93 12 110/68 96 11/22/19 03:00 85 9 L 92/57 L 95 Weight: Weight 11/20/19 11/21/19 11/22/19 23:59 23:59 23:59 Weight (kg) 79.5 kg 80 kg 81 kg Intake & Output: Intake and Output Totals x24h 11/20/19 11/21/19 11/22/19 23:59 23:59 23:59 Intake Total 3262.667 4768.533 1990.2 Output Total 100 3645 700 Balance 3162.667 2405.491 6053.2 - Lab Results Lab Results: 11/22/19 04:45 11/22/19 04:45 Other Lab Results: Lab Results x24hrs 11/22/19 11/22/19 11/22/19 Range/Units 04:45 04:45 04:45 WBC (4.8-10.8) x10^3/uL RBC (4.20-5.40) 10^6/uL Hgb (12.0-16.0) g/dL Hct (37.0-47.0) % MCV (81.0-99.0) fL MCH (27.0-31.0) pg MCHC (32.0-36.0) g/dL RDW (12.0-15.0) % Plt Count (130-450) 10^3/uL MPV (7.9-10.8) fL PT (9.9-12.6) secs INR (0.8-1.2) Sodium (135-145) mmol/L Potassium (3.5-5.0) mmol/L Chloride (101-111) mmol/L Carbon Dioxide (21-32) mmol/L Anion Gap (6-13) BUN (6-20) mg/dL Creatinine (0.4-1.0) mg/dL Estimated GFR (MDRD) (>89) Glucose (70-100) mg/dL POC Whole Bld Glucose (70 - 100) mg/dL Calcium (8.5-10.3) mg/dL Phosphorus 1.4 L (2.5-4.6) mg/dL Iron (28-170) ug/dL TIBC (250-450) ug/dL % Saturation (20-50) % Transferrin (192-382) mg/dL Total Bilirubin (0.2-1.0) mg/dL AST (10-42) IU/L ALT (10-60) IU/L Alkaline Phosphatase (42-121) IU/L Ammonia 49.5 H (7-35) umol/L Total Protein (6.7-8.2) g/dL Albumin (3.2-5.5) g/dL Globulin (2.1-4.2) g/dL Albumin/Globulin Ratio (1.0-2.2) Vitamin B12 1460 H (180-914) pg/mL Folate 21.06 (5.90 - >24.8) ng/mL 11/22/19 11/22/19 11/22/19 Range/Units 04:45 04:45 04:45 WBC 2.5 L (4.8-10.8) x10^3/uL RBC 2.24 L (4.20-5.40) 10^6/uL Hgb 8.0 L (12.0-16.0) g/dL Hct 24.7 L (37.0-47.0) % MCV 110.3 H (81.0-99.0) fL MCH 35.7 H (27.0-31.0) pg MCHC 32.4 (32.0-36.0) g/dL RDW 17.6 H (12.0-15.0) % Plt Count 28 L* (130-450) 10^3/uL MPV 12.4 H (7.9-10.8) fL PT 12.9 H (9.9-12.6) secs INR 1.1 (0.8-1.2) Sodium 133 L (135-145) mmol/L Potassium 3.5 (3.5-5.0) mmol/L Chloride 100 L (101-111) mmol/L Carbon Dioxide 24 (21-32) mmol/L Anion Gap 9.0 (6-13) BUN 6 (6-20) mg/dL Creatinine 0.5 (0.4-1.0) mg/dL Estimated GFR (MDRD) 127 (>89) Glucose 141 H (70-100) mg/dL POC Whole Bld Glucose (70 - 100) mg/dL Calcium 7.7 L (8.5-10.3) mg/dL Phosphorus (2.5-4.6) mg/dL Iron 128 (28-170) ug/dL TIBC 137 L (250-450) ug/dL % Saturation 93 H (20-50) % Transferrin 98 L (192-382) mg/dL Total Bilirubin 6.5 H (0.2-1.0) mg/dL AST 210 H (10-42) IU/L ALT 127 H (10-60) IU/L Alkaline Phosphatase 591 H (42-121) IU/L Ammonia (7-35) umol/L Total Protein 4.9 L (6.7-8.2) g/dL Albumin 2.4 L (3.2-5.5) g/dL Globulin 2.5 (2.1-4.2) g/dL Albumin/Globulin Ratio 1.0 (1.0-2.2) Vitamin B12 (180-914) pg/mL Folate (5.90 - >24.8) ng/mL 11/20/19 Range/Units 19:53 WBC (4.8-10.8) x10^3/uL RBC (4.20-5.40) 10^6/uL Hgb (12.0-16.0) g/dL Hct (37.0-47.0) % MCV (81.0-99.0) fL MCH (27.0-31.0) pg MCHC (32.0-36.0) g/dL RDW (12.0-15.0) % Plt Count (130-450) 10^3/uL MPV (7.9-10.8) fL PT (9.9-12.6) secs INR (0.8-1.2) Sodium (135-145) mmol/L Potassium (3.5-5.0) mmol/L Chloride (101-111) mmol/L Carbon Dioxide (21-32) mmol/L Anion Gap (6-13) BUN (6-20) mg/dL Creatinine (0.4-1.0) mg/dL Estimated GFR (MDRD) (>89) Glucose (70-100) mg/dL POC Whole Bld Glucose 251 H (70 - 100) mg/dL Calcium (8.5-10.3) mg/dL Phosphorus (2.5-4.6) mg/dL Iron (28-170) ug/dL TIBC (250-450) ug/dL % Saturation (20-50) % Transferrin (192-382) mg/dL Total Bilirubin (0.2-1.0) mg/dL AST (10-42) IU/L ALT (10-60) IU/L Alkaline Phosphatase (42-121) IU/L Ammonia (7-35) umol/L Total Protein (6.7-8.2) g/dL Albumin (3.2-5.5) g/dL Globulin (2.1-4.2) g/dL Albumin/Globulin Ratio (1.0-2.2) Vitamin B12 (180-914) pg/mL Folate (5.90 - >24.8) ng/mL - Current Medications Current Medications: Current Medications Generic Name Dose Route Start Last Admin Trade Name Freq PRN Reason Stop Dose Admin Buspirone HCl 15 mg 11/21/19 09:00 11/22/19 08:22 Buspar PO 15 mg BID ENDER Administration Cephalexin 250 mg 11/21/19 12:00 11/22/19 05:03 Keflex PO 250 mg Q6HR ENDER Administration Chlordiazepoxide HCl 10 mg 11/20/19 18:00 11/22/19 05:03 Librium PO 11/22/19 23:00 10 mg TID ENDER Administration Duloxetine HCl 60 mg 11/21/19 09:00 11/22/19 08:21 Cymbalta PO 60 mg DAILY ENDER Administration Famotidine 20 mg 11/20/19 21:00 11/22/19 08:22 Pepcid PO 20 mg BID ENDER Administration Hydromorphone HCl 0.5 mg 11/20/19 17:22 11/21/19 22:23 Dilaudid Inj Syringe IVP 0.5 mg Q2H PRN Administration Pain 8 to 10 Lorazepam 1 mg 11/20/19 17:31 11/22/19 08:54 Ativan Inj (Vial) IVP 1 mg Q30M PRN Administration CIWA >8 Protocol Metoprolol Succinate 25 mg 11/20/19 21:00 11/22/19 08:22 Toprol Xl PO 25 mg BID ENDER Administration Pantoprazole Sodium 40 mg 11/21/19 16:00 11/22/19 06:21 Protonix PO 40 mg QDAC ENDER Administration Sodium Chloride 10 ml 11/21/19 01:00 11/21/19 21:32 Normal Saline Flush 0.9% IVP 10 ml 0100,0900,1700 ENDER Administration Sumatriptan Succinate 6 mg 11/21/19 10:16 11/21/19 10:38 Imitrex Inj SUBQ 11/26/19 10:15 6 mg ONCE PRN Administration MIGRAINE Trazodone HCl 150 mg 11/20/19 21:00 11/21/19 23:26 Desyrel PO 150 mg QPM ENDER Administration Venlafaxine HCl 75 mg 11/21/19 09:00 11/22/19 08:22 Effexor Er PO 75 mg DAILY ENDER Administration - Physical Exam Extremities: positive: Other
--- NOTE | 2019-11-22 10:58 | PROVIDER PROGRESS NOTE ---
Subjective - General Admit Date: 11/20/19 - Review of Systems Musculoskeletal: positive: Leg pain (Her left leg has been immobilized in a long leg padded fiberglass splint applied yesterday in the emergency room. Her pain is under good control, has no symptoms or signs of compartment syndrome. She is in the intensive care unit at the present time. She is alert) Psychiatric: positive: Other (She has altered mental status, remains in the intensive care unit, appears comfortable and in no acute distress.) Objective - Patient Data Vital Signs: Vital Signs x48h Temp Pulse Resp BP Pulse Ox 11/22/19 09:00 81 14 92/55 L 95 11/22/19 08:00 36.6 C 83 14 100/57 L 95 11/22/19 07:00 91 18 116/96 H 97 11/22/19 06:00 36.9 C 96 18 109/76 97 11/22/19 05:00 92 12 108/68 97 11/22/19 04:00 37.4 C 93 12 110/68 96 11/22/19 03:00 85 9 L 92/57 L 95 Weight: Weight 11/20/19 11/21/19 11/22/19 23:59 23:59 23:59 Weight (kg) 79.5 kg 80 kg 81 kg Intake & Output: Intake and Output Totals x24h 11/20/19 11/21/19 11/22/19 23:59 23:59 23:59 Intake Total 3262.667 4768.533 1990.2 Output Total 100 3645 700 Balance 3162.667 0728.362 6221.2 - Lab Results Lab Results: 11/22/19 04:45 11/22/19 04:45 Other Lab Results: Lab Results x24hrs 11/22/19 11/22/19 11/22/19 Range/Units 04:45 04:45 04:45 WBC (4.8-10.8) x10^3/uL RBC (4.20-5.40) 10^6/uL Hgb (12.0-16.0) g/dL Hct (37.0-47.0) % MCV (81.0-99.0) fL MCH (27.0-31.0) pg MCHC (32.0-36.0) g/dL RDW (12.0-15.0) % Plt Count (130-450) 10^3/uL MPV (7.9-10.8) fL PT (9.9-12.6) secs INR (0.8-1.2) Sodium (135-145) mmol/L Potassium (3.5-5.0) mmol/L Chloride (101-111) mmol/L Carbon Dioxide (21-32) mmol/L Anion Gap (6-13) BUN (6-20) mg/dL Creatinine (0.4-1.0) mg/dL Estimated GFR (MDRD) (>89) Glucose (70-100) mg/dL POC Whole Bld Glucose (70 - 100) mg/dL Calcium (8.5-10.3) mg/dL Phosphorus 1.4 L (2.5-4.6) mg/dL Iron (28-170) ug/dL TIBC (250-450) ug/dL % Saturation (20-50) % Transferrin (192-382) mg/dL Total Bilirubin (0.2-1.0) mg/dL AST (10-42) IU/L ALT (10-60) IU/L Alkaline Phosphatase (42-121) IU/L Ammonia 49.5 H (7-35) umol/L Total Protein (6.7-8.2) g/dL Albumin (3.2-5.5) g/dL Globulin (2.1-4.2) g/dL Albumin/Globulin Ratio (1.0-2.2) Vitamin B12 1460 H (180-914) pg/mL Folate 21.06 (5.90 - >24.8) ng/mL 11/22/19 11/22/19 11/22/19 Range/Units 04:45 04:45 04:45 WBC 2.5 L (4.8-10.8) x10^3/uL RBC 2.24 L (4.20-5.40) 10^6/uL Hgb 8.0 L (12.0-16.0) g/dL Hct 24.7 L (37.0-47.0) % MCV 110.3 H (81.0-99.0) fL MCH 35.7 H (27.0-31.0) pg MCHC 32.4 (32.0-36.0) g/dL RDW 17.6 H (12.0-15.0) % Plt Count 28 L* (130-450) 10^3/uL MPV 12.4 H (7.9-10.8) fL PT 12.9 H (9.9-12.6) secs INR 1.1 (0.8-1.2) Sodium 133 L (135-145) mmol/L Potassium 3.5 (3.5-5.0) mmol/L Chloride 100 L (101-111) mmol/L Carbon Dioxide 24 (21-32) mmol/L Anion Gap 9.0 (6-13) BUN 6 (6-20) mg/dL Creatinine 0.5 (0.4-1.0) mg/dL Estimated GFR (MDRD) 127 (>89) Glucose 141 H (70-100) mg/dL POC Whole Bld Glucose (70 - 100) mg/dL Calcium 7.7 L (8.5-10.3) mg/dL Phosphorus (2.5-4.6) mg/dL Iron 128 (28-170) ug/dL TIBC 137 L (250-450) ug/dL % Saturation 93 H (20-50) % Transferrin 98 L (192-382) mg/dL Total Bilirubin 6.5 H (0.2-1.0) mg/dL AST 210 H (10-42) IU/L ALT 127 H (10-60) IU/L Alkaline Phosphatase 591 H (42-121) IU/L Ammonia (7-35) umol/L Total Protein 4.9 L (6.7-8.2) g/dL Albumin 2.4 L (3.2-5.5) g/dL Globulin 2.5 (2.1-4.2) g/dL Albumin/Globulin Ratio 1.0 (1.0-2.2) Vitamin B12 (180-914) pg/mL Folate (5.90 - >24.8) ng/mL 11/20/19 Range/Units 19:53 WBC (4.8-10.8) x10^3/uL RBC (4.20-5.40) 10^6/uL Hgb (12.0-16.0) g/dL Hct (37.0-47.0) % MCV (81.0-99.0) fL MCH (27.0-31.0) pg MCHC (32.0-36.0) g/dL RDW (12.0-15.0) % Plt Count (130-450) 10^3/uL MPV (7.9-10.8) fL PT (9.9-12.6) secs INR (0.8-1.2) Sodium (135-145) mmol/L Potassium (3.5-5.0) mmol/L Chloride (101-111) mmol/L Carbon Dioxide (21-32) mmol/L Anion Gap (6-13) BUN (6-20) mg/dL Creatinine (0.4-1.0) mg/dL Estimated GFR (MDRD) (>89) Glucose (70-100) mg/dL POC Whole Bld Glucose 251 H (70 - 100) mg/dL Calcium (8.5-10.3) mg/dL Phosphorus (2.5-4.6) mg/dL Iron (28-170) ug/dL TIBC (250-450) ug/dL % Saturation (20-50) % Transferrin (192-382) mg/dL Total Bilirubin (0.2-1.0) mg/dL AST (10-42) IU/L ALT (10-60) IU/L Alkaline Phosphatase (42-121) IU/L Ammonia (7-35) umol/L Total Protein (6.7-8.2) g/dL Albumin (3.2-5.5) g/dL Globulin (2.1-4.2) g/dL Albumin/Globulin Ratio (1.0-2.2) Vitamin B12 (180-914) pg/mL Folate (5.90 - >24.8) ng/mL - Current Medications Current Medications: Current Medications Generic Name Dose Route Start Last Admin Trade Name Freq PRN Reason Stop Dose Admin Buspirone HCl 15 mg 11/21/19 09:00 11/22/19 08:22 Buspar PO 15 mg BID ENDER Administration Cephalexin 250 mg 11/21/19 12:00 11/22/19 05:03 Keflex PO 250 mg Q6HR ENDER Administration Chlordiazepoxide HCl 10 mg 11/20/19 18:00 11/22/19 05:03 Librium PO 11/22/19 23:00 10 mg TID ENDER Administration Duloxetine HCl 60 mg 11/21/19 09:00 11/22/19 08:21 Cymbalta PO 60 mg DAILY ENDER Administration Famotidine 20 mg 11/20/19 21:00 11/22/19 08:22 Pepcid PO 20 mg BID ENDER Administration Hydromorphone HCl 0.5 mg 11/20/19 17:22 11/21/19 22:23 Dilaudid Inj Syringe IVP 0.5 mg Q2H PRN Administration Pain 8 to 10 Lorazepam 1 mg 11/20/19 17:31 11/22/19 08:54 Ativan Inj (Vial) IVP 1 mg Q30M PRN Administration CIWA >8 Protocol Metoprolol Succinate 25 mg 11/20/19 21:00 11/22/19 08:22 Toprol Xl PO 25 mg BID ENDER Administration Pantoprazole Sodium 40 mg 11/21/19 16:00 11/22/19 06:21 Protonix PO 40 mg QDAC ENDER Administration Sodium Chloride 10 ml 11/21/19 01:00 11/21/19 21:32 Normal Saline Flush 0.9% IVP 10 ml 0100,0900,1700 ENEDR Administration Sumatriptan Succinate 6 mg 11/21/19 10:16 11/21/19 10:38 Imitrex Inj SUBQ 11/26/19 10:15 6 mg ONCE PRN Administration MIGRAINE Trazodone HCl 150 mg 11/20/19 21:00 11/21/19 23:26 Desyrel PO 150 mg QPM ENDER Administration Venlafaxine HCl 75 mg 11/21/19 09:00 11/22/19 08:22 Effexor Er PO 75 mg DAILY ENDER Administration - Physical Exam Neurologic/Psychiatric: positive: Other (Her altered mental status makes it difficult to perform complete examination, particularly neurological. She has no deformity lower extremities. Swelling appears to be stable and not excessive to lower extremities. She has mild tenderness to the proximal left fibula and lateral right ankle. Skin is intact. Circulation intact. Gross neurologic intact.) Impression/Plan - Problem List Problem List: :She has 2 orthopedic problems: #1 closed, proximal left fibular fracture and #2 sprain lateral collateral ligament right ankle. She can weight-bear as tolerated on lower extremities but probably would be best sitting until her mental status permits safe ambulation.
[2019-11-22] MEDS ORDERED: POTASSIUM PHOSPHATE 21 MMOL in SODIUM CHLORIDE 0.9% 250 ML IV ONE (11:57)
[2019-11-22] MEDS: FERROUS GLUCONATE 324 MG TABLET PO SCH (13:04)
[2019-11-22] MEDS: PRENATAL VITAMIN TABLET PO SCH ×2 (13:04→13:05)
[2019-11-22] MEDS: THIAMINE 100 MG TABLET PO SCH (13:05)
[2019-11-22] MEDS: LACTULOSE 10 GM/15 ML BOTTLE PO SCH ×2 (13:05→16:00)
[2019-11-22] MEDS: traZODone 50 MG TABLET PO SCH (20:06)
[2019-11-22] MEDS: HYDROmorphone 0.5 MG/0.5 ML SYRINGE IVP PRN (20:07)
[2019-11-23] MEDS: SODIUM CHLORIDE FLUSH 0.9% 10 ML SYRINGE IVP SCH ×3 (00:11→15:45)
[2019-11-23] MEDS: LORazepam 2 MG/ML VIAL IVP PRN ×2 (00:16→04:56)
[2019-11-23 04:58] LABS: INR 1.2 (0.8-1.2); PT - PROTHROMBIN TIME 13.2 secs (9.9-12.6)
[2019-11-23] MEDS: cephALEXin 250 MG CAPSULE PO SCH (05:01)
[2019-11-23 05:06] LABS: ALBUMIN 2.2 g/dL (3.2-5.5); ALBUMIN/GLOBULIN RATIO 0.8 (1.0-2.2); ALKALINE PHOSPHATASE 613 IU/L (42-121); ALT ALANINE AMINOTRANSFERASE 108 IU/L (10-60); AST ASPARTATE AMINOTRANSFERASE 166 IU/L (10-42); BILIRUBIN,TOTAL 7.4 mg/dL (0.2-1.0); BUN - BLOOD UREA NITROGEN < 5 mg/dL (6-20); CALCIUM 7.6 mg/dL (8.5-10.3); CARBON DIOXIDE - CO2 25 mmol/L (21-32); CHLORIDE 105 mmol/L (101-111); CREATININE 0.4 mg/dL (0.4-1.0); GLUCOSE 120 mg/dL (70-100); PHOSPHORUS 1.9 mg/dL (2.5-4.6); SODIUM 136 mmol/L (135-145); TOTAL PROTEIN 4.8 g/dL (6.7-8.2)
[2019-11-23 05:28] LABS: HGB - HEMOGLOBIN 7.9 g/dL (12.0-16.0); MEAN CORPUSCULAR HEMOGLOBIN 36.1 pg (27.0-31.0); MEAN CORPUSCULAR HGB CONC 33.3 g/dL (32.0-36.0); MEAN CORPUSCULAR VOLUME 108.2 fL (81.0-99.0); MEAN PLATELET VOLUME 12.9 fL (7.9-10.8); RED BLOOD COUNT 2.19 10^6/uL (4.20-5.40); RED CELL DISTRIBUTION WIDTH 18.5 % (12.0-15.0); WHITE BLOOD COUNT 2.1 x10^3/uL (4.8-10.8)
[2019-11-23] MEDS: PANTOPRAZOLE 40 MG TABLET PO SCH (06:00)
[2019-11-23] MEDS: FERROUS GLUCONATE 324 MG TABLET PO SCH (08:36)
[2019-11-23] MEDS: NEUTRA-PHOS 250 MG TABLET PO SCH ×2 (08:37→10:55)
--- NOTE | 2019-11-23 08:48 | XRAY Report ---
PROCEDURE: Chest 1 View X-Ray INDICATIONS: Fever, eval for pneumonia TECHNIQUE: One view of the chest was acquired. COMPARISON: Chest x-ray 11/20/2019 FINDINGS: Surgical changes and devices: None. Lungs and pleura: No pleural effusions or pneumothorax. There is a questionable slight appearance of increasing opacity within the retrocardiac region compared to prior exam. There is unchanged elevati on of the right hemidiaphragm. Mediastinum: Mediastinal contours appear normal. Heart size is enlarged. Bones and chest wall: No suspicious bony lesions. Overlying soft tissues appear unremarkable. IMPRESSION: Questionable appearance of increasing opacity overlying the retrocardiac region. This could represent atelectasis. However, developing pneumonia cannot be excluded. Reviewed by: Stephanie Camacho MD on 11/23/2019 8:46 AM PDT Approved by: Stephanie Camacho MD on 11/23/2019 8:46 AM PDT Station ID: [id number]
[2019-11-23] MEDS: chlordiazePOXIDE 5 MG CAPSULE PO SCH ×3 (08:51→22:20)
[2019-11-23] MEDS: DULoxetine 30 MG CAPSULE PO SCH (08:52)
[2019-11-23] MEDS: THIAMINE 100 MG TABLET PO SCH (08:53)
[2019-11-23] MEDS: VENLAFAXINE ER 75 MG CAPSULE PO SCH (08:53)
[2019-11-23] MEDS: FAMOTIDINE 20 MG TABLET PO SCH ×2 (08:53→22:20)
[2019-11-23] MEDS: METOPROLOL SUCCINATE 25 MG TABLET PO SCH ×2 (08:53→22:19)
[2019-11-23] MEDS: busPIRone 5 MG TABLET PO SCH ×2 (08:54→22:20)
[2019-11-23] MEDS ORDERED: CIPROFLOXACIN 400 MG/200 ML 400 MG/200 ML BAG IV SCH (09:00)
[2019-11-23] MEDS: D5NS W/20 MEQ KCL 1,000 ML IV SCH ×2 (09:03→22:33)
--- NOTE | 2019-11-23 09:11 | PROVIDER PROGRESS NOTE ---
Assessment/Plan - Problem List (1) Fever Assessment/Plan: This morning she has a (skin) temp of 38C, cor temp is likley even higher, therefore. CXR shows a poss peumonia vs atelectasis. She may have ascites, therefoire need to cover for poss SBP. Her E coli in urine is sens to Cipro, therefore will order Cipro iv q8h (due to the poss pneumonia). Will resume iv fluids due to fluid loss duirng fever Will order IS. Check Lactic Acid and follow if elevated. Follow WBC daily, which has been low since admission. Will order prn iv NSAID for fever (2 days max of Toradol, since want to avoid Acetominaphen, due to liver failure). (2) Alcohol withdrawal hallucinosis Assessment/Plan: She is on the Librium to prevent withdrawal. CIWA protocol also ordered for Ativan if she is agitated. (3) Sepsis due to gram-negative UTI Assessment/Plan: IV fluids have been restarted since she is tachycardic, febrile and somnolent and not able to take adequate fluids or diet p.o. Will change antibiotic coverage to IV because of the fever. Blood cultures were ordered when she spiked a temperature today. (4) Hypotension Assessment/Plan: Continues to run a "soft" or borderline blood pressure. IV fluids have been resumed because she cannot take adequate fluids p.o. while she is somnolent. Treat the underlying infection. Lactic acid recheck was ordered with her fever spike. (5) E. coli UTI Assessment/Plan: Urine grew E coli, bauer sensitive. Due to fever today, will change from po Keflex to iv antibiotic. Blood cultures ordered (6) Urinary retention Assessment/Plan: Due to somnolence, will continue with the Skinner for accurate I's and O's, as I am ordering restarting iv hydration (7) Hepatic encephalopathy Assessment/Plan: Lactulose has been ordered, the doses needed to be decreased because she was somnolent from her Ativan, this explains the increase of ammonia today. (8) Alcoholic hepatitis Qualifiers: Ascites presence: unspecified Qualified Code(s): K70.10 - Alcoholic hepatitis without ascites Assessment/Plan: LFts slowly improving except bilirubin Will plan CT abdomen, which was not done at admission in ER. (9) Fracture of left proximal fibula Qualifiers: Encounter type: initial encounter Fracture type: closed Fracture morphology: unspecified fracture morphology Qualified Code(s): S82.832A - Other fracture of upper and lower end of left fibula, initial encounter for closed fracture Assessment/Plan: She started PT, but last 1.5 days has been too somnolent. The left leg splint is in place. (10) Thrombocytopenia Assessment/Plan: Continued fluctuation of low plt count No gross bleeding present, although guaic of stool was (+) Follow CBC daily. (11) Anemia Qualifiers: Anemia type: iron deficiency Assessment/Plan: Iron replacement was started. (12) Anemia due to GI blood loss Assessment/Plan: Guaic of stool was pos. She is on Pepcid, not Protonix due to Protonix allergy (of swelling). Follow CBC daily. (13) Hypokalemia Assessment/Plan: Replace Follow BMP daily (14) Hypophosphatemia Assessment/Plan: Replace Follow PO4 daily (15) Multiple contusions Assessment/Plan: None are enlarging (16) Facial contusion Qualifiers: Encounter type: subsequent encounter Qualified Code(s): S00.83XD - Contusion of other part of head, subsequent encounter Assessment/Plan: Stable (17) LBBB (left bundle branch block) Assessment/Plan: This is an old finding. Echo ordered, should be done today. (18) Migraine Assessment/Plan: Sumatriptan was used at home and was ordered prn here. - Current Meds Current Meds: Current Medications Generic Name Dose Route Start Last Admin Trade Name Freq PRN Reason Stop Dose Admin Buspirone HCl 15 mg 11/21/19 09:00 11/22/19 20:06 Buspar PO 15 mg BID ENDER Administration Duloxetine HCl 60 mg 11/21/19 09:00 11/22/19 08:21 Cymbalta PO 60 mg DAILY ENDER Administration Famotidine 20 mg 11/20/19 21:00 11/22/19 20:07 Pepcid PO 20 mg BID ENDER Administration Ferrous Gluconate 324 mg 11/22/19 08:00 11/23/19 08:36 Fergon PO 324 mg DAILYWM ENDER Administration Hydromorphone HCl 0.5 mg 11/20/19 17:22 11/22/19 20:07 Dilaudid Inj Syringe IVP 0.5 mg Q2H PRN Administration Pain 8 to 10 Lactulose 10 gm 11/22/19 09:00 11/22/19 16:00 Lactulose PO Not Given 0900,1600 ENDER Lorazepam 1 mg 11/20/19 17:31 11/23/19 04:56 Ativan Inj (Vial) IVP 1 mg Q30M PRN Administration CIWA >8 Protocol Metoprolol Succinate 25 mg 11/20/19 21:00 11/22/19 20:05 Toprol Xl PO 25 mg BID ENDER Administration Pantoprazole Sodium 40 mg 11/21/19 16:00 11/23/19 06:00 Protonix PO 40 mg QDAC ENDER Administration Multivit/Folic Acid/Iron 1 tab 11/22/19 08:00 11/22/19 13:05 Trinatal Rx 1 PO 1 tab DAILYWM ENDER Administration Sodium Chloride 10 ml 11/21/19 01:00 11/23/19 08:38 Normal Saline Flush 0.9% IVP 10 ml 0100,0900,1700 ENDER Administration Sodium Phosphate 250 mg 11/23/19 08:00 11/23/19 08:37 K-Phos Neutral PO 11/23/19 10:01 250 mg Q2H ENDER Administration Protocol Sumatriptan Succinate 6 mg 11/21/19 10:16 11/21/19 10:38 Imitrex Inj SUBQ 11/26/19 10:15 6 mg ONCE PRN Administration MIGRAINE Thiamine HCl 100 mg 11/22/19 09:00 11/22/19 13:05 Vitamin B-1 PO 100 mg DAILY ENDER Administration Trazodone HCl 150 mg 11/20/19 21:00 11/22/19 20:06 Desyrel PO 150 mg QPM ENDER Administration Venlafaxine HCl 75 mg 11/21/19 09:00 11/22/19 08:22 Effexor Er PO 75 mg DAILY ENDER Administration - Lab Result Fish Bone Diagrams: 11/23/19 04:41 11/23/19 04:41 - Additional Planning My Orders: My Active Orders 11/22/19 09:00 Lactulose 10 gm PO 0900,1600 Thiamine [Vitamin B-1] 100 mg PO DAILY 11/23/19 CUL, RESPIRATORY [RM] Routine CULTURE, BLOOD #1 [RM] Stat CULTURE, BLOOD #2 [RM] Stat 06/15/20 05:00 LACTIC ACID, VENOUS [CHEM] Urgent 11/23/19 08:00 Echo Transthoracic Complete [ECHO] Routine Neutra-Phos [K-Phos Neutral] 250 mg PO Q2H 11/23/19 08:05 Nutrition Consult [CONS] Routine 11/23/19 09:00 Ciprofloxacin 400 mg/200 ml [Cipro 400 mg/200 ml] 400 mg in 200 ml IV Q12H D5ns W/20 Meq KCl 1,000 ml IV 83.333 mls/hr chlordiazePOXIDE [Librium] 5 mg PO TID 11/23/19 10:00 Ciprofloxacin 400 mg/200 ml [Cipro 400 mg/200 ml] 400 mg in 200 ml IV Q8H 11/24/19 05:00 COMPREHENSIVE METABOLIC PANEL [CHEM] DAILYLAB PHOSPHORUS [CHEM] DAILYLAB PT WITH INR [COAG] DAILYLAB 11/24/19 09:00 chlordiazePOXIDE [Librium] 5 mg PO 0900,1800 11/25/19 05:00 PHOSPHORUS [CHEM] DAILYLAB Subjective - Subjective Patient Reports: Resting Comfortably, Other (Sleepy, arouses only briefly to name and to touch) Nursing Reports: Other (She needed to be fed, was drinking spontaneously.) Objective Vital Signs: Vital Signs - 24 hr 11/22/19 11/22/19 11/22/19 12:00 14:35 15:00 Temperature 36.2 C L Heart Rate [ 74 75 78 Monitoring electrodes] Respiratory 12 15 18 Rate Blood Pressure 92/28 L 103/63 111/54 L [Right Brachial artery] O2 Saturation 94 95 94 11/22/19 11/22/19 11/22/19 18:00 19:53 20:04 Temperature 36.3 C L Heart Rate [ 83 90 86 Monitoring electrodes] Respiratory 19 15 Rate Blood Pressure 96/54 L 116/104 H 101/74 [Right Brachial artery] O2 Saturation 94 97 11/22/19 11/23/19 11/23/19 21:00 00:00 02:08 Temperature Heart Rate [ 88 84 87 Monitoring electrodes] Respiratory 13 12 20 Rate Blood Pressure 101/58 L 100/60 132/75 H [Right Brachial artery] O2 Saturation 94 94 97 11/23/19 11/23/19 11/23/19 04:10 04:58 06:03 Temperature 38.0 C H Heart Rate [ 104 H 104 H 96 Monitoring electrodes] Respiratory 17 17 16 Rate Blood Pressure 113/71 94/77 106/69 [Right Brachial artery] O2 Saturation 96 100 97 11/23/19 11/23/19 06:38 08:09 Temperature 37.7 C H 38.6 C H Heart Rate [ 104 H Monitoring electrodes] Respiratory 20 Rate Blood Pressure 108/57 L [Right Brachial artery] O2 Saturation 98 Oxygen O2 Source Room air I&O (Last 24 Hrs): Intake and Output Totals x24h 11/21/19 11/22/19 11/23/19 23:59 23:59 23:59 Intake Total 4768.533 2947.2 Output Total 3645 2240 680 Balance 1123.533 707.2 -680 General: Other (Sleeping, turning in bed spontaneously) HEENT: Mucous membr. moist/pink, Other (Nose and chin bruises unchanged) Neck: Supple Neuro: Other (Somnolent) Cardiovascular: Regular rate Respiratory: No respiratory distress, Wheezes Abdomen: Soft Extremities: No edema, Other (Multiple bruises and left leg splint unchanged) - Results Results: Laboratory Results WBC 2.1 x10^3/uL (4.8-10.8) L 11/23/19 04:41 RBC 2.19 10^6/uL (4.20-5.40) L 11/23/19 04:41 Hgb 7.9 g/dL (12.0-16.0) L 11/23/19 04:41 Hct 23.7 % (37.0-47.0) L 11/23/19 04:41 MCV 108.2 fL (81.0-99.0) H 11/23/19 04:41 MCH 36.1 pg (27.0-31.0) H 11/23/19 04:41 MCHC 33.3 g/dL (32.0-36.0) 11/23/19 04:41 RDW 18.5 % (12.0-15.0) H 11/23/19 04:41 Plt Count 32 10^3/uL (130-450) L* 11/23/19 04:41 MPV 12.9 fL (7.9-10.8) H 11/23/19 04:41 Neut # (Auto) 1.6 10^3/uL (1.5-6.6) 11/20/19 12:28 Lymph # (Auto) 1.6 10^3/uL (1.5-3.5) 11/20/19 12:28 [place] # (Auto) 0.2 10^3/uL (0.0-1.0) 11/20/19 12:28 Eos # (Auto) 0.0 10^3/uL (0.0-0.7) 11/20/19 12:28 Baso # (Auto) 0.0 10^3/uL (0.0-0.1) 11/20/19 12:28 Absolute Nucleated RBC 0.00 x10^3/uL 11/20/19 12:28 Nucleated RBC % 0.0 /100WBC 11/20/19 12:28 PT 13.2 secs (9.9-12.6) H 11/23/19 04:41 INR 1.2 (0.8-1.2) 11/23/19 04:41 Sodium 136 mmol/L (135-145) 11/23/19 04:41 Potassium 3.9 mmol/L (3.5-5.0) 11/23/19 04:41 Chloride 105 mmol/L (101-111) 11/23/19 04:41 Carbon Dioxide 25 mmol/L (21-32) 11/23/19 04:41 Anion Gap 6.0 (6-13) 11/23/19 04:41 BUN < 5 mg/dL (6-20) L 11/23/19 04:41 Creatinine 0.4 mg/dL (0.4-1.0) 11/23/19 04:41 Estimated GFR (MDRD) 165 (>89) 11/23/19 04:41 Glucose 120 mg/dL (70-100) H 11/23/19 04:41 POC Whole Bld Glucose 251 mg/dL (70 - 100) H 11/20/19 19:53 Lactic Acid 2.2 mmol/L (0.5-2.2) 11/21/19 07:30 Calcium 7.6 mg/dL (8.5-10.3) L 11/23/19 04:41 Phosphorus 1.9 mg/dL (2.5-4.6) L 11/23/19 04:41 Magnesium 2.0 mg/dL (1.7-2.8) 11/23/19 04:45 Iron 128 ug/dL (28-170) 11/22/19 04:45 TIBC 137 ug/dL (250-450) L 11/22/19 04:45 % Saturation 93 % (20-50) H 11/22/19 04:45 Transferrin 98 mg/dL (192-382) L 11/22/19 04:45 Total Bilirubin 7.4 mg/dL (0.2-1.0) H 11/23/19 04:41 AST 166 IU/L (10-42) H 11/23/19 04:41 ALT 108 IU/L (10-60) H 11/23/19 04:41 Alkaline Phosphatase 613 IU/L (42-121) H 11/23/19 04:41 Ammonia 81.0 umol/L (7-35) H* 11/23/19 04:41 Total Protein 4.8 g/dL (6.7-8.2) L 11/23/19 04:41 Albumin 2.2 g/dL (3.2-5.5) L 11/23/19 04:41 Globulin 2.6 g/dL (2.1-4.2) 11/23/19 04:41 Albumin/Globulin Ratio 0.8 (1.0-2.2) L 11/23/19 04:41 Lipase 32 U/L (22-51) 11/20/19 12:28 Vitamin B12 1460 pg/mL (180-914) H 11/22/19 04:45 Folate 21.06 ng/mL (5.90 - >24.8) 11/22/19 04:45 TSH 0.38 uIU/mL (0.34-5.60) 11/21/19 04:56 PTH Intact 43 pg/mL (12-88) 11/23/19 04:41 Urine Color YELLOW 11/20/19 19:55 Urine Clarity HAZY (CLEAR) 11/20/19 19:55 Urine pH 5.5 PH (5.0-7.5) 11/20/19 19:55 Ur Specific [place] 1.010 (1.002-1.030) 11/20/19 19:55 Urine Protein NEGATIVE mg/dL (NEGATIVE) 11/20/19 19:55 Urine Glucose (UA) NEGATIVE mg/dL (NEGATIVE) 11/20/19 19:55 Urine Ketones NEGATIVE mg/dL (NEGATIVE) 11/20/19 19:55 Urine Occult Blood NEGATIVE (NEGATIVE) 11/20/19 19:55 Urine Nitrite NEGATIVE (NEGATIVE) 11/20/19 19:55 Urine Bilirubin NEGATIVE (NEGATIVE) 11/20/19 19:55 Urine Urobilinogen 0.2 (NORMAL) E.U./dL (NORMAL) 11/20/19 19:55 Ur Leukocyte Esterase NEGATIVE (NEGATIVE) 11/20/19 19:55 Urine RBC None Seen /HPF (0-5) 11/20/19 19:55 Urine WBC 0-3 /HPF (0-5) 11/20/19 19:55 Ur Squamous Epith Cells RARE Squamous (<= Few) 11/20/19 19:55 Urine Bacteria Many /HPF (None Seen) H 11/20/19 19:55 Ur Microscopic Review INDICATED 11/20/19 19:55 Urine Culture Comments INDICATED 11/20/19 19:55 Nasal Screen MRSA (PCR) NEGATIVE (NEGATIVE) 11/20/19 18:45 Urine Opiates Screen NEGATIVE (NEGATIVE) 11/20/19 19:55 Ur Oxycodone Screen NEGATIVE (NEGATIVE) 11/20/19 19:55 Urine Methadone Screen NEGATIVE (NEGATIVE) 11/20/19 19:55 Ur Propoxyphene Screen NEGATIVE (NEGATIVE) 11/20/19 19:55 Ur Barbiturates Screen NEGATIVE (NEGATIVE) 11/20/19 19:55 Ur Tricyclics Screen NEGATIVE (NEGATIVE) 11/20/19 19:55 Ur Phencyclidine Scrn NEGATIVE (NEGATIVE) 11/20/19 19:55 Ur Amphetamine Screen NEGATIVE (NEGATIVE) 11/20/19 19:55 U Methamphetamines Scrn NEGATIVE (NEGATIVE) 11/20/19 19:55 U Benzodiazepines Scrn NEGATIVE (NEGATIVE) 11/20/19 19:55 Urine Cocaine Screen NEGATIVE (NEGATIVE) 11/20/19 19:55 U Cannabinoids Screen NEGATIVE (NEGATIVE) 11/20/19 19:55 Ethyl Alcohol 22.8 mg/dL 11/21/19 04:56
[2019-11-23] MEDS: LACTULOSE 10 GM/15 ML BOTTLE PO SCH ×2 (09:26→15:34)
[2019-11-23] MEDS: CIPROFLOXACIN 400 MG/200 ML 400 MG/200 ML BAG IV SCH ×2 (10:55→17:31)
[2019-11-23] MEDS: KETOROLAC 15 MG/ML VIAL IVP PRN ×2 (15:29→22:30)
[2019-11-23] MEDS: traZODone 50 MG TABLET PO SCH (22:20)
[2019-11-24] MEDS: SODIUM CHLORIDE FLUSH 0.9% 10 ML SYRINGE IVP SCH ×3 (00:23→18:15)
[2019-11-24] MEDS: HYDROmorphone 0.5 MG/0.5 ML SYRINGE IVP PRN ×3 (01:43→21:05)
[2019-11-24] MEDS: LORazepam 2 MG/ML VIAL IVP PRN ×3 (01:44→04:45)
[2019-11-24] MEDS: CIPROFLOXACIN 400 MG/200 ML 400 MG/200 ML BAG IV SCH ×3 (01:45→18:14)
[2019-11-24 05:01] LABS: HGB - HEMOGLOBIN 7.4 g/dL (12.0-16.0); MEAN CORPUSCULAR HEMOGLOBIN 35.4 pg (27.0-31.0); MEAN CORPUSCULAR HGB CONC 32.3 g/dL (32.0-36.0); MEAN CORPUSCULAR VOLUME 109.6 fL (81.0-99.0); MEAN PLATELET VOLUME 12.4 fL (7.9-10.8); RED BLOOD COUNT 2.09 10^6/uL (4.20-5.40); RED CELL DISTRIBUTION WIDTH 18.9 % (12.0-15.0); WHITE BLOOD COUNT 3.1 x10^3/uL (4.8-10.8)
[2019-11-24 05:03] LABS: INR 1.3 (0.8-1.2); PT - PROTHROMBIN TIME 14.1 secs (9.9-12.6)
[2019-11-24 05:15] LABS: ALBUMIN 2.1 g/dL (3.2-5.5); ALBUMIN/GLOBULIN RATIO 0.8 (1.0-2.2); ALKALINE PHOSPHATASE 554 IU/L (42-121); ALT ALANINE AMINOTRANSFERASE 96 IU/L (10-60); AST ASPARTATE AMINOTRANSFERASE 130 IU/L (10-42); BILIRUBIN,TOTAL 7.9 mg/dL (0.2-1.0); BUN - BLOOD UREA NITROGEN < 5 mg/dL (6-20); CALCIUM 7.7 mg/dL (8.5-10.3); CARBON DIOXIDE - CO2 28 mmol/L (21-32); CHLORIDE 105 mmol/L (101-111); CREATININE 0.4 mg/dL (0.4-1.0); GLUCOSE 124 mg/dL (70-100); PHOSPHORUS 2.4 mg/dL (2.5-4.6); SODIUM 140 mmol/L (135-145); TOTAL PROTEIN 4.9 g/dL (6.7-8.2)
[2019-11-24] MEDS: FERROUS GLUCONATE 324 MG TABLET PO SCH (07:59)
[2019-11-24] MEDS: PANTOPRAZOLE 40 MG TABLET PO SCH (07:59)
[2019-11-24] MEDS: NEUTRA-PHOS 250 MG TABLET PO SCH ×2 (08:01→10:48)
[2019-11-24] MEDS: PRENATAL VITAMIN TABLET PO SCH (08:02)
[2019-11-24] MEDS: busPIRone 5 MG TABLET PO SCH ×2 (08:55→21:06)
[2019-11-24] MEDS: DULoxetine 30 MG CAPSULE PO SCH (08:55)
[2019-11-24] MEDS: FAMOTIDINE 20 MG TABLET PO SCH ×2 (08:56→21:05)
[2019-11-24] MEDS: THIAMINE 100 MG TABLET PO SCH (08:57)
[2019-11-24] MEDS: VENLAFAXINE ER 75 MG CAPSULE PO SCH (08:57)
[2019-11-24] MEDS: METOPROLOL SUCCINATE 25 MG TABLET PO SCH ×2 (08:57→21:05)
[2019-11-24] MEDS ORDERED: chlordiazePOXIDE 5 MG CAPSULE PO SCH (09:00)
[2019-11-24] MEDS: LACTULOSE 10 GM/15 ML BOTTLE PO SCH ×2 (09:02→15:44)
[2019-11-24] MEDS: D5NS W/20 MEQ KCL 1,000 ML IV SCH (12:15)
--- NOTE | 2019-11-24 13:35 | PROVIDER PROGRESS NOTE ---
Assessment/Plan - Problem List (1) Hypotension Assessment/Plan: Initially the lactic acid was 5 which improved to 2 and yesterday during fever was 2.4. The fluids were restarted when she spiked a fever. She has "soft" blood pressures, but is tolerating being out of bed in a chair. Continue with IV hydration, tapering it down to off slowly, hopefully as she awakens more daily and takes more p.o. fluids. Transfer out of the ICU today. Continue telemetry. (2) Alcohol withdrawal hallucinosis Assessment/Plan: Her CIWA protocol was still elevated overnight and she needed Ativan. She has been somnolent for the past 3-day times, minimally participating in PT, feeding herself, out of bed to chair. Will stop the CIWA protocol Ativan dosing since she is now here for days. Her Librium was already scheduled on a taper down to off course. PT started, could not work her through for the last 2 days, today she was more cooperative once again. She is still too somnolent to be seen by social work, regarding alcohol abuse and detox options. (3) E. coli UTI Assessment/Plan: This E coli is pansensitive. She was put on Keflex when she was clinically stable. During yesterday's fever this was changed to IV first generation Cephalosporin. (4) Urinary retention Assessment/Plan: She needed the Skinner reinserted due to retention. Since she is still very somnolent, will continue with Skinner yet, until she is more awake. (5) Hepatic encephalopathy Assessment/Plan: Ammonia levels are followed daily. She has plateaued in the 40s, getting lactulose whenever she is not too somnolent. (6) Alcoholic hepatitis Qualifiers: Ascites presence: unspecified Qualified Code(s): K70.10 - Alcoholic hepatitis without ascites Assessment/Plan: LFTs are improving daily, except the bilirubin rising. She finished 2 days of IV banana bag and now is taking oral thiamine and vitamin. Will obtain CT imaging of the abdomen and pelvis because of the rising b ilirubin. (7) Fracture of left proximal fibula Qualifiers: Encounter type: initial encounter Fracture type: closed Fracture morphology: unspecified fracture morphology Qualified Code(s): S82.832A - Other fracture of upper and lower end of left fibula, initial encounter for c losed fracture Assessment/Plan: Stable and the splint that was placed on admission by orthopedist. Pain appears to be under control, because of the sedatives. She is able to participate with PT (8) Thrombocytopenia Assessment/Plan: This has still been in the 20-30K range. Today plts are at their best at 41K. No overt bleeding. Watch CBC daily (9) Anemia Qualifiers: Anemia type: iron deficiency Assessment/Plan: Related to poor iron intake and nutrition which accompanies her alcohol abuse, probable bone marrow suppression from alcohol and GI blood loss. Follow CBC daily. Transfuse if Hgb under 7 or if there is a bleed (10) Anemia due to GI blood loss Assessment/Plan: She had guaiac positive stool Hgbtoday is the lowest at 7.4. PPI was started for empiric treatment of peptic ulcer disease Transfuse if she has a hemoglobin of approximately 7, or if bleeding. Follow CBC daily. (11) Hypophosphatemia Assessment/Plan: Related to poor nutrition accompanying the alcohol abuse. Continue to replace when needed. Follow phosphate level daily (12) Multiple contusions Assessment/Plan: From freq falls at home. (13) Facial contusion Qualifiers: Encounter type: subsequent encounter Qualified Code(s): S00.83XD - Contusion of other part of head, subsequent encounter Assessment/Plan: The size is improving daily minimally (14) LBBB (left bundle branch block) Assessment/Plan: Echo was done because of this finding, it showed normal LV and RV function, ruling out alcoholic cardiomyopathy. (15) Migraine Assessment/Plan: She needed to be restarted on sumatriptan early in this admission when she had a migraine, which she takes at home. (16) Sepsis due to gram-negative UTI Assessment/Plan: Sepsis has resolved. Her UTI is being treated with IV antibiotic (17) Fever Assessment/Plan: Resolved. Blood cultures are negative to date, at 24 hours. Her IV antibiotics were increased to IV form yesterday, for treating UTI. (18) Hypokalemia Assessment/Plan: Resolved with replacement. Follow BMP daily - Current Meds Current Meds: Current Medications Generic Name Dose Route Start Last Admin Trade Name Freq PRN Reason Stop Dose Admin Buspirone HCl 15 mg 11/21/19 09:00 11/24/19 08:55 Buspar PO 15 mg BID ENDER Administration Duloxetine HCl 60 mg 11/21/19 09:00 11/24/19 08:55 Cymbalta PO 60 mg DAILY ENDER Administration Famotidine 20 mg 11/20/19 21:00 11/24/19 08:56 Pepcid PO 20 mg BID ENDER Administration Ferrous Gluconate 324 mg 11/22/19 08:00 11/24/19 07:59 Fergon PO 324 mg DAILYWM ENDER Administration Hydromorphone HCl 0.5 mg 11/20/19 17:22 11/24/19 04:45 Dilaudid Inj Syringe IVP 0.5 mg Q2H PRN Administration Pain 8 to 10 Potassium Chloride/Dextrose/Sod Cl 1,000 mls @ 83.333 mls/hr 11/23/19 09:00 11/24/19 12:15 IV 83.333 mls/hr .Q12H ENDER Administration Ciprofloxacin 400 mg in 200 mls @ 200 mls/hr 11/23/19 10:00 11/24/19 11:50 Cipro 400 Mg/200 Ml IV Infused Q8H ENDER Infusion Ketorolac Tromethamine 15 mg 11/23/19 10:46 11/23/19 22:30 Toradol Inj (15mg) IVP 11/25/19 00:00 15 mg Q6HR PRN Administration Pain or Fever > 38C (100.4F) Lactulose 10 gm 11/22/19 09:00 11/24/19 09:02 Lactulose PO 10 gm 0900,1600 ENDER Administration Metoprolol Succinate 25 mg 11/20/19 21:00 11/24/19 08:57 Toprol Xl PO 25 mg BID ENDER Administration Pantoprazole Sodium 40 mg 11/21/19 16:00 11/24/19 07:59 Protonix PO 40 mg QDAC ENDER Administration Multivit/Folic Acid/Iron 1 tab 11/22/19 08:00 11/24/19 08:02 Trinatal Rx 1 PO 1 tab DAILYWM ENDER Administration Sodium Chloride 10 ml 11/21/19 01:00 11/24/19 08:04 Normal Saline Flush 0.9% IVP 10 ml 0100,0900,1700 ENDER Administration Sumatriptan Succinate 6 mg 11/21/19 10:16 11/21/19 10:38 Imitrex Inj SUBQ 11/26/19 10:15 6 mg ONCE PRN Administration MIGRAINE Thiamine HCl 100 mg 11/22/19 09:00 11/24/19 08:57 Vitamin B-1 PO 100 mg DAILY ENDER Administration Trazodone HCl 150 mg 11/20/19 21:00 11/23/19 22:20 Desyrel PO 150 mg QPM ENDER Administration Venlafaxine HCl 75 mg 11/21/19 09:00 11/24/19 08:57 Effexor Er PO 75 mg DAILY ENDER Administration - Lab Result Fish Bone Diagrams: 11/24/19 04:49 11/24/19 04:49 - Additional Planning My Orders: My Active Orders 11/24/19 10:38 Miscellaenous Nursing Order [RC] QSHIFT 11/24/19 12:32 Transfer [Admit \\ Transfer \\ Status] [RC] .ONCE 11/24/19 12:33 Telemetry- [RC] Q4HR 11/25/19 05:00 AMMONIA [CHEM] DAILYLAB PHOSPHORUS [CHEM] DAILYLAB 11/26/19 05:00 AMMONIA [CHEM] DAILYLAB 11/27/19 05:00 AMMONIA [CHEM] DAILYLAB Subjective - Subjective Patient Reports: Other (Sleeping) Objective Vital Signs: Vital Signs - 24 hr 11/23/19 11/23/19 11/23/19 14:00 15:00 15:57 Temperature 37.6 C H Heart Rate [ 90 91 78 Monitoring electrodes] Respiratory 16 22 23 Rate Blood Pressure [Left Brachial artery] Blood Pressure 96/67 92/52 L 113/72 [Right Brachial artery] O2 Saturation 97 11/23/19 11/23/19 11/23/19 17:00 18:00 20:00 Temperature 37.4 C Heart Rate [ 89 85 82 Monitoring electrodes] Respiratory 19 20 15 Rate Blood Pressure [Left Brachial artery] Blood Pressure 110/68 120/68 120/84 H [Right Brachial artery] O2 Saturation 94 95 11/23/19 11/23/19 11/23/19 21:00 22:00 23:23 Temperature 36.8 C Heart Rate [ 85 87 77 Monitoring electrodes] Respiratory 19 20 17 Rate Blood Pressure 128/74 [Left Brachial artery] Blood Pressure 124/69 130/74 [Right Brachial artery] O2 Saturation 95 99 11/24/19 11/24/19 11/24/19 00:14 02:00 03:00 Temperature 36.7 C Heart Rate [ 84 75 71 Monitoring electrodes] Respiratory 17 18 17 Rate Blood Pressure 141/77 H 163/85 H 134/98 H [Left Brachial artery] Blood Pressure [Right Brachial artery] O2 Saturation 99 98 98 11/24/19 11/24/19 11/24/19 04:00 06:00 07:24 Temperature 36.5 C Heart Rate [ 79 80 72 Monitoring electrodes] Respiratory 17 11 L 11 L Rate Blood Pressure 107/67 116/73 [Left Brachial artery] Blood Pressure [Right Brachial artery] O2 Saturation 97 95 96 11/24/19 11/24/19 11/24/19 08:00 09:00 12:00 Temperature 36.6 C 36.2 C L Heart Rate [ 95 76 82 Monitoring electrodes] Respiratory 16 13 16 Rate Blood Pressure 125/81 H 104/71 91/62 [Left Brachial artery] Blood Pressure [Right Brachial artery] O2 Saturation 95 97 Oxygen O2 Source Room air I&O (Last 24 Hrs): Intake and Output Totals x24h 11/22/19 11/23/19 11/24/19 23:59 23:59 23:59 Intake Total 2947.2 2270 2887 Output Total 2240 3370 2337 Balance 707.2 -1100 550 General: Other (Sleeping but arousable to RN) HEENT: Mucous membr. moist/pink Neck: Supple Neuro: Other (Somnolent, got Ativan about 4 hours ago) Cardiovascular: Regular rate Respiratory: No respiratory distress Abdomen: Soft Extremities: No edema, Other (Multiple contusions. L leg in splint.) - Results Results: Laboratory Results WBC 3.1 x10^3/uL (4.8-10.8) L 11/24/19 04:49 RBC 2.09 10^6/uL (4.20-5.40) L 11/24/19 04:49 Hgb 7.4 g/dL (12.0-16.0) L 11/24/19 04:49 Hct 22.9 % (37.0-47.0) L 11/24/19 04:49 MCV 109.6 fL (81.0-99.0) H 11/24/19 04:49 MCH 35.4 pg (27.0-31.0) H 11/24/19 04:49 MCHC 32.3 g/dL (32.0-36.0) 11/24/19 04:49 RDW 18.9 % (12.0-15.0) H 11/24/19 04:49 Plt Count 41 10^3/uL (130-450) L 11/24/19 04:49 MPV 12.4 fL (7.9-10.8) H 11/24/19 04:49 Neut # (Auto) 1.6 10^3/uL (1.5-6.6) 11/20/19 12:28 Lymph # (Auto) 1.6 10^3/uL (1.5-3.5) 11/20/19 12:28 [place] # (Auto) 0.2 10^3/uL (0.0-1.0) 11/20/19 12:28 Eos # (Auto) 0.0 10^3/uL (0.0-0.7) 11/20/19 12:28 Baso # (Auto) 0.0 10^3/uL (0.0-0.1) 11/20/19 12:28 Absolute Nucleated RBC 0.00 x10^3/uL 11/20/19 12:28 Nucleated RBC % 0.0 /100WBC 11/20/19 12:28 PT 14.1 secs (9.9-12.6) H 11/24/19 04:49 INR 1.3 (0.8-1.2) H 11/24/19 04:49 Sodium 140 mmol/L (135-145) 11/24/19 04:49 Potassium 3.7 mmol/L (3.5-5.0) 11/24/19 04:49 Chloride 105 mmol/L (101-111) 11/24/19 04:49 Carbon Dioxide 28 mmol/L (21-32) 11/24/19 04:49 Anion Gap 7.0 (6-13) 11/24/19 04:49 BUN < 5 mg/dL (6-20) L 11/24/19 04:49 Creatinine 0.4 mg/dL (0.4-1.0) 11/24/19 04:49 Estimated GFR (MDRD) 165 (>89) 11/24/19 04:49 Glucose 124 mg/dL (70-100) H 11/24/19 04:49 POC Whole Bld Glucose 251 mg/dL (70 - 100) H 11/20/19 19:53 Lactic Acid 2.4 mmol/L (0.5-2.2) H 11/23/19 10:05 Calcium 7.7 mg/dL (8.5-10.3) L 11/24/19 04:49 Phosphorus 2.4 mg/dL (2.5-4.6) L 11/24/19 04:49 Magnesium 1.8 mg/dL (1.7-2.8) 11/24/19 04:49 Iron 128 ug/dL (28-170) 11/22/19 04:45 TIBC 137 ug/dL (250-450) L 11/22/19 04:45 % Saturation 93 % (20-50) H 11/22/19 04:45 Transferrin 98 mg/dL (192-382) L 11/22/19 04:45 Total Bilirubin 7.9 mg/dL (0.2-1.0) H 11/24/19 04:49 AST 130 IU/L (10-42) H 11/24/19 04:49 ALT 96 IU/L (10-60) H 11/24/19 04:49 Alkaline Phosphatase 554 IU/L (42-121) H 11/24/19 04:49 Ammonia 40.4 umol/L (7-35) H 11/24/19 10:47 Total Protein 4.9 g/dL (6.7-8.2) L 11/24/19 04:49 Albumin 2.1 g/dL (3.2-5.5) L 11/24/19 04:49 Globulin 2.8 g/dL (2.1-4.2) 11/24/19 04:49 Albumin/Globulin Ratio 0.8 (1.0-2.2) L 11/24/19 04:49 Lipase 32 U/L (22-51) 11/20/19 12:28 Vitamin B12 1460 pg/mL (180-914) H 11/22/19 04:45 Folate 21.06 ng/mL (5.90 - >24.8) 11/22/19 04:45 TSH 0.38 uIU/mL (0.34-5.60) 11/21/19 04:56 PTH Intact 43 pg/mL (12-88) 11/23/19 04:41 Urine Color YELLOW 11/20/19 19:55 Urine Clarity HAZY (CLEAR) 11/20/19 19:55 Urine pH 5.5 PH (5.0-7.5) 11/20/19 19:55 Ur Specific [place] 1.010 (1.002-1.030) 11/20/19 19:55 Urine Protein NEGATIVE mg/dL (NEGATIVE) 11/20/19 19:55 Urine Glucose (UA) NEGATIVE mg/dL (NEGATIVE) 11/20/19 19:55 Urine Ketones NEGATIVE mg/dL (NEGATIVE) 11/20/19 19:55 Urine Occult Blood NEGATIVE (NEGATIVE) 11/20/19 19:55 Urine Nitrite NEGATIVE (NEGATIVE) 11/20/19 19:55 Urine Bilirubin NEGATIVE (NEGATIVE) 11/20/19 19:55 Urine Urobilinogen 0.2 (NORMAL) E.U./dL (NORMAL) 11/20/19 19:55 Ur Leukocyte Esterase NEGATIVE (NEGATIVE) 11/20/19 19:55 Urine RBC None Seen /HPF (0-5) 11/20/19 19:55 Urine WBC 0-3 /HPF (0-5) 11/20/19 19:55 Ur Squamous Epith Cells RARE Squamous (<= Few) 11/20/19 19:55 Urine Bacteria Many /HPF (None Seen) H 11/20/19 19:55 Ur Microscopic Review INDICATED 11/20/19 19:55 Urine Culture Comments INDICATED 11/20/19 19:55 Nasal Screen MRSA (PCR) NEGATIVE (NEGATIVE) 11/20/19 18:45 Urine Opiates Screen NEGATIVE (NEGATIVE) 11/20/19 19:55 Ur Oxycodone Screen NEGATIVE (NEGATIVE) 11/20/19 19:55 Urine Methadone Screen NEGATIVE (NEGATIVE) 11/20/19 19:55 Ur Propoxyphene Screen NEGATIVE (NEGATIVE) 11/20/19 19:55 Ur Barbiturates Screen NEGATIVE (NEGATIVE) 11/20/19 19:55 Ur Tricyclics Screen NEGATIVE (NEGATIVE) 11/20/19 19:55 Ur Phencyclidine Scrn NEGATIVE (NEGATIVE) 11/20/19 19:55 Ur Amphetamine Screen NEGATIVE (NEGATIVE) 11/20/19 19:55 U Methamphetamines Scrn NEGATIVE (NEGATIVE) 11/20/19 19:55 U Benzodiazepines Scrn NEGATIVE (NEGATIVE) 11/20/19 19:55 Urine Cocaine Screen NEGATIVE (NEGATIVE) 11/20/19 19:55 U Cannabinoids Screen NEGATIVE (NEGATIVE) 11/20/19 19:55 Ethyl Alcohol 22.8 mg/dL 11/21/19 04:56
[2019-11-24] MEDS: KETOROLAC 15 MG/ML VIAL IVP PRN (14:52)
[2019-11-24] MEDS ORDERED: LORazepam 2 MG/ML VIAL IVP PRN (19:01)
[2019-11-24] MEDS: traZODone 50 MG TABLET PO SCH (21:06)
[2019-11-25] MEDS: CIPROFLOXACIN 400 MG/200 ML 400 MG/200 ML BAG IV SCH ×3 (01:40→17:15)
[2019-11-25] MEDS: D5NS W/20 MEQ KCL 1,000 ML IV SCH ×2 (01:41→08:45)
[2019-11-25] MEDS: SODIUM CHLORIDE FLUSH 0.9% 10 ML SYRINGE IVP SCH ×3 (03:30→17:13)
[2019-11-25] MEDS: HYDROmorphone 0.5 MG/0.5 ML SYRINGE IVP PRN ×3 (03:52→22:10)
[2019-11-25] MEDS: PANTOPRAZOLE 40 MG TABLET PO SCH (05:54)
[2019-11-25 05:55] LABS: BASOPHILS % (AUTO) 0.3 %; HGB - HEMOGLOBIN 7.4 g/dL (12.0-16.0); LYMPHOCYTES # (AUTO) 1.3 10^3/uL (1.5-3.5); LYMPHOCYTES % (AUTO) 43.9 %; MEAN CORPUSCULAR HEMOGLOBIN 34.9 pg (27.0-31.0); MEAN CORPUSCULAR HGB CONC 31.1 g/dL (32.0-36.0); MEAN CORPUSCULAR VOLUME 112.3 fL (81.0-99.0); MEAN PLATELET VOLUME 12.9 fL (7.9-10.8); MONOCYTES # (AUTO) 0.4 10^3/uL (0.0-1.0); MONOCYTES % (AUTO) 12.5 %; NEUTROPHILS # (AUTO) 1.3 10^3/uL (1.5-6.6); NEUTROPHILS % (AUTO) 41.3 %; PLT - PLATELET COUNT 44 10^3/uL (130-450); RED BLOOD COUNT 2.12 10^6/uL (4.20-5.40); RED CELL DISTRIBUTION WIDTH 19.4 % (12.0-15.0)
[2019-11-25 06:13] LABS: ALBUMIN 2.1 g/dL (3.2-5.5); ALBUMIN/GLOBULIN RATIO 0.8 (1.0-2.2); ALKALINE PHOSPHATASE 471 IU/L (42-121); ALT ALANINE AMINOTRANSFERASE 82 IU/L (10-60); AST ASPARTATE AMINOTRANSFERASE 117 IU/L (10-42); BILIRUBIN,TOTAL 7.1 mg/dL (0.2-1.0); BUN - BLOOD UREA NITROGEN < 5 mg/dL (6-20); CARBON DIOXIDE - CO2 28 mmol/L (21-32); CHLORIDE 102 mmol/L (101-111); CREATININE 0.4 mg/dL (0.4-1.0); GLUCOSE 117 mg/dL (70-100); MAGNESIUM 1.8 mg/dL (1.7-2.8); PHOSPHORUS 2.9 mg/dL (2.5-4.6); SODIUM 139 mmol/L (135-145); TOTAL PROTEIN 4.7 g/dL (6.7-8.2)
[2019-11-25 06:22] LABS: PLATELET ESTIMATE, MANUAL DECREASED (<130,000) (NORMAL)
--- NOTE | 2019-11-25 08:46 | XRAY Report ---
PROCEDURE: Chest 1 View X-Ray INDICATIONS: Hypoxia. Aspiration. TECHNIQUE: One view of the chest was acquired. COMPARISON: 11/23/2019 FINDINGS: Surgical changes and devices: None. Lungs and pleura: There is interval improved aeration in the left lung base. There is mild pulmonary vascular prominence likely reflecting vascular crowding due to low lung volumes versus minimal edema . No pleural effusions or pneumothorax. Mediastinum: Mediastinal contours appear unchanged. Heart size is normal. Bones and chest wall: No suspicious bony lesions. Overlying soft tissues appear unremarkable. IMPRESSION: 1. Mild pulmonary vascular prominence likely reflecting vascular crowding due to low lung volumes, ve rsus minimal pulmonary edema. Reviewed by: Cam Preciado MD on 11/25/2019 8:45 AM PDT Approved by: Cam Preciado MD on 11/25/2019 8:45 AM PDT Station ID: [id number]
--- NOTE | 2019-11-25 08:55 | PROVIDER PROGRESS NOTE ---
Assessment/Plan - Problem List (1) Hypersomnolence Assessment/Plan: Will decrease the Ativan prn amounts and frequency on her CIWA scale, to allow her to awaken Librium taper has been finished (2) Aspiration into airway Assessment/Plan: The patient was witnessed to aspirate water while drinking. She became hypoxic and needed supplemental O2, the O2 is off and back to room air this morning. A chest x-ray was ordered to look for new infiltrate, possible chemical a spiration. The chest x-ray shows pulmonary vascular congestion and no infiltrate. We will decrease IV fluid rate as she takes a po diet (3) Pulmonary edema Assessment/Plan: As above. We will decrease IV rate from 83.33 down to 40 cc/h. Promote p.o. fluid replacement as she awakens hopefully more every day. (4) Hypotension Assessment/Plan: Continues to run a "soft" blood pressure. She is no longer tachycardic or have signs of volume depletion. Avoid meds that can lower her blood pressure. She is out of ICU and in MedSurg status currently. (5) E. coli UTI Assessment/Plan: Continue with IV antibiotics, which were changed from po antibiotics when she had the fever. A 7-day total course is planned (6) Urinary retention Assessment/Plan: We tried to take out the Skinner yesterday, she had continued urinary retention, the Skinner had to be reinserted. We will reattempt to discontinue the Skinner when she is more awake (7) Hepatic encephalopathy Assessment/Plan: She is still somnolent from getting several days of iv Ativan for alcohol withdrawal. We will decrease the Ativan use slowly. I suspect that her somnolence and asterixis will be very slow to clear up. Continue lactulose twice daily, titrating to 3 soft BMs per day. Follow ammonia level daily. (8) Alcoholic hepatitis Qualifiers: Ascites presence: unspecified Qualified Code(s): K70.10 - Alcoholic hepatitis without ascites Assessment/Plan: She has daily improvement in LFTs. (9) Fracture of left proximal fibula Qualifiers: Encounter type: subsequent encounter Fracture type: closed Fracture morphology: unspecified fracture morphology Assessment/Plan: He is tolerating standing with PT. No complaints of pain. Continue the management as per Orthopedics. (10) Thrombocytopenia Assessment/Plan: Platelet count has improved daily from the 20Ks to 30Ks and today is 44K. There are no overt signs of bleeding. She did have a guaic (+) stool result however. Follow CBC daily. (11) Anemia Qualifiers: Anemia type: iron deficiency Assessment/Plan: Oral iron replacement has been started. Follow CBC daily (12) Anemia due to GI blood loss Assessment/Plan: She had a guaiac positive stool result. She has been put on empiric treatment for PUD and GI blood loss anemia. Follow CBC daily. Transfuse if she has overt bleeding or if hemoglobin goes under 7. (13) Hypophosphatemia Assessment/Plan: Related to poor nutrition coinciding with alcohol abuse. Replace Follow phosphate daily (14) Multiple contusions Assessment/Plan: Is had multiple falls in her past recent history and remotely, probably related to alcohol abuse and intoxication or ataxia from chronic liver disease These bruises are all slowly improving everywhere. (15) Facial contusion Qualifiers: Encounter type: subsequent encounter Qualified Code(s): S00.83XD - Contusion of other part of head, subsequent encounter Assessment/Plan: Improving (16) LBBB (left bundle branch block) Assessment/Plan: This is a chronic finding, present on EKGs from years back. An echo was done during this hospitalization, which had never been done before, it shows preserved LV function. (17) Migraine Assessment/Plan: She again had a headache today, as on her first day of admission. 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 Assessment/Plan: Resolved - Current Meds Current Meds: Current Medications Generic Name Dose Route Start Last Admin Trade Name Freq PRN Reason Stop Dose Admin Buspirone HCl 15 mg 11/21/19 09:00 11/24/19 21:06 Buspar PO 15 mg BID ENDER Administration Duloxetine HCl 60 mg 11/21/19 09:00 11/24/19 08:55 Cymbalta PO 60 mg DAILY ENDER Administration Famotidine 20 mg 11/20/19 21:00 11/24/19 21:05 Pepcid PO 20 mg BID ENDER Administration Ferrous Gluconate 324 mg 11/22/19 08:00 11/24/19 07:59 Fergon PO 324 mg DAILYWM ENDER Administration Hydromorphone HCl 0.5 mg 11/20/19 17:22 11/25/19 03:52 Dilaudid Inj Syringe IVP 0.5 mg Q2H PRN Administration Pain 8 to 10 Ciprofloxacin 400 mg in 200 mls @ 200 mls/hr 11/23/19 10:00 11/25/19 03:52 Cipro 400 Mg/200 Ml IV Infused Q8H ENDER Infusion Lactulose 10 gm 11/22/19 09:00 11/24/19 15:44 Lactulose PO 10 gm 0900,1600 ENDER Administration Metoprolol Succinate 25 mg 11/20/19 21:00 11/24/19 21:05 Toprol Xl PO 25 mg BID ENDER Administration Pantoprazole Sodium 40 mg 11/21/19 16:00 11/25/19 05:54 Protonix PO 40 mg QDAC ENDER Administration Multivit/Folic Acid/Iron 1 tab 11/22/19 08:00 11/24/19 08:02 Trinatal Rx 1 PO 1 tab DAILYWM ENDER Administration Sodium Chloride 10 ml 11/21/19 01:00 11/25/19 03:30 Normal Saline Flush 0.9% IVP Not Given 0100,0900,1700 [facility] Sumatriptan Succinate 6 mg 11/21/19 10:16 11/21/19 10:38 Imitrex Inj SUBQ 11/26/19 10:15 6 mg ONCE PRN Administration MIGRAINE Thiamine HCl 100 mg 11/22/19 09:00 11/24/19 08:57 Vitamin B-1 PO 100 mg DAILY ENDER Administration Trazodone HCl 150 mg 11/20/19 21:00 11/24/19 21:06 Desyrel PO 150 mg QPM ENDER Administration Venlafaxine HCl 75 mg 11/21/19 09:00 11/24/19 08:57 Effexor Er PO 75 mg DAILY ENDER Administration - Lab Result Fish Bone Diagrams: 11/26/19 05:35 11/26/19 05:35 - Additional Planning My Orders: My Active Orders 11/24/19 10:38 Miscellaenous Nursing Order [RC] QSHIFT 11/24/19 12:33 Telemetry- [RC] Q4HR 11/24/19 19:01 LORazepam INJ [Ativan Inj (Vial)] 1 mg IVP Q30M PRN 11/25/19 08:52 D5ns W/20 Meq KCl 1,000 ml IV 40 mls/hr 11/26/19 05:00 AMMONIA [CHEM] DAILYLAB 11/27/19 05:00 AMMONIA [CHEM] DAILYLAB Subjective - Subjective Patient Reports: Other (Sleeping, awakens to name then falls back asleep) Nursing Reports: Other (She is able to sit in chair, needs to be fed) Objective Vital Signs: Vital Signs - 24 hr 11/24/19 11/24/19 11/24/19 09:00 12:00 15:53 Temperature 36.2 C L 36.2 C L Heart Rate [ 76 82 79 Monitoring electrodes] Respiratory 13 16 19 Rate Blood Pressure 104/71 91/62 119/72 [Left Brachial artery] O2 Saturation 97 100 11/24/19 11/25/19 11/25/19 20:00 00:00 03:54 Temperature 36.7 C 36.6 C 37.1 C Heart Rate [ 83 84 94 Monitoring electrodes] Respiratory 13 12 14 Rate Blood Pressure 118/73 97/59 L 94/78 [Left Brachial artery] O2 Saturation 96 97 97 11/25/19 05:00 Temperature Heart Rate [ 94 Monitoring electrodes] Respiratory 13 Rate Blood Pressure 100/60 [Left Brachial artery] O2 Saturation Oxygen O2 Source Room air I&O (Last 24 Hrs): Intake and Output Totals x24h 11/23/19 11/24/19 11/25/19 23:59 23:59 23:59 Intake Total 2270 3587 1743.038 Output Total 3370 3082 850 Balance -1100 505 893.038 General: Other (Somnolent) HEENT: Mucous membr. moist/pink, Other (Chin bruise) Neck: Supple Neuro: Other (Somnolent, non-focal) Cardiovascular: Regular rate Respiratory: No respiratory distress Abdomen: Soft Extremities: Other (Bruises are lessening, L leg in splint) - Results Results: Laboratory Results WBC 3.0 x10^3/uL (4.8-10.8) L 11/25/19 05:40 RBC 2.12 10^6/uL (4.20-5.40) L 11/25/19 05:40 Hgb 7.4 g/dL (12.0-16.0) L 11/25/19 05:40 Hct 23.8 % (37.0-47.0) L 11/25/19 05:40 MCV 112.3 fL (81.0-99.0) H 11/25/19 05:40 MCH 34.9 pg (27.0-31.0) H 11/25/19 05:40 MCHC 31.1 g/dL (32.0-36.0) L 11/25/19 05:40 RDW 19.4 % (12.0-15.0) H 11/25/19 05:40 Plt Count 44 10^3/uL (130-450) L 11/25/19 05:40 MPV 12.9 fL (7.9-10.8) H 11/25/19 05:40 Neut # (Auto) 1.3 10^3/uL (1.5-6.6) L 11/25/19 05:40 Lymph # (Auto) 1.3 10^3/uL (1.5-3.5) L 11/25/19 05:40 [place] # (Auto) 0.4 10^3/uL (0.0-1.0) 11/25/19 05:40 Eos # (Auto) 0.0 10^3/uL (0.0-0.7) 11/25/19 05:40 Baso # (Auto) 0.0 10^3/uL (0.0-0.1) 11/25/19 05:40 Absolute Nucleated RBC 0.08 x10^3/uL 11/25/19 05:40 Nucleated RBC % 2.6 /100WBC 11/25/19 05:40 Manual Slide Review Indicated 11/25/19 05:40 Platelet Estimate DECREASED (<130,000) (NORMAL) 11/25/19 05:40 RBC Morph Micro Appear 1+ ANISOCYTOSIS (NORMAL) 2+ HYPOCHROMASIA (NORMAL) 1+ POLYCHROMASIA (NORMAL) 1+ TARGET CELLS (NORMAL) 11/25/19 05:40 RBC Morph Micro Appear 1+ ANISOCYTOSIS (NORMAL) 2+ HYPOCHROMASIA (NORMAL) 1+ POLYCHROMASIA (NORMAL) 1+ TARGET CELLS (NORMAL) 11/25/19 05:40 RBC Morph Micro Appear 1+ ANISOCYTOSIS (NORMAL) 2+ HYPOCHROMASIA (NORMAL) 1+ POLYCHROMASIA (NORMAL) 1+ TARGET CELLS (NORMAL) 11/25/19 05:40 RBC Morph Micro Appear 1+ ANISOCYTOSIS (NORMAL) 2+ HYPOCHROMASIA (NORMAL) 1+ POLYCHROMASIA (NORMAL) 1+ TARGET CELLS (NORMAL) 11/25/19 05:40 PT 14.1 secs (9.9-12.6) H 11/24/19 04:49 INR 1.3 (0.8-1.2) H 11/24/19 04:49 Sodium 139 mmol/L (135-145) 11/25/19 05:40 Potassium 4.3 mmol/L (3.5-5.0) 11/25/19 05:40 Chloride 102 mmol/L (101-111) 11/25/19 05:40 Carbon Dioxide 28 mmol/L (21-32) 11/25/19 05:40 Anion Gap 9.0 (6-13) 11/25/19 05:40 BUN < 5 mg/dL (6-20) L 11/25/19 05:40 Creatinine 0.4 mg/dL (0.4-1.0) 11/25/19 05:40 Estimated GFR (MDRD) 165 (>89) 11/25/19 05:40 Glucose 117 mg/dL (70-100) H 11/25/19 05:40 POC Whole Bld Glucose 251 mg/dL (70 - 100) H 11/20/19 19:53 Lactic Acid 2.4 mmol/L (0.5-2.2) H 11/23/19 10:05 Calcium 8.0 mg/dL (8.5-10.3) L 11/25/19 05:40 Phosphorus 2.9 mg/dL (2.5-4.6) 11/25/19 05:40 Magnesium 1.8 mg/dL (1.7-2.8) 11/25/19 05:40 Iron 128 ug/dL (28-170) 11/22/19 04:45 TIBC 137 ug/dL (250-450) L 11/22/19 04:45 % Saturation 93 % (20-50) H 11/22/19 04:45 Transferrin 98 mg/dL (192-382) L 11/22/19 04:45 Total Bilirubin 7.1 mg/dL (0.2-1.0) H 11/25/19 05:40 AST 117 IU/L (10-42) H 11/25/19 05:40 ALT 82 IU/L (10-60) H 11/25/19 05:40 Alkaline Phosphatase 471 IU/L (42-121) H 11/25/19 05:40 Ammonia 39.5 umol/L (7-35) H 11/25/19 05:40 Total Protein 4.7 g/dL (6.7-8.2) L 11/25/19 05:40 Albumin 2.1 g/dL (3.2-5.5) L 11/25/19 05:40 Globulin 2.6 g/dL (2.1-4.2) 11/25/19 05:40 Albumin/Globulin Ratio 0.8 (1.0-2.2) L 11/25/19 05:40 Lipase 32 U/L (22-51) 11/20/19 12:28 Vitamin B12 1460 pg/mL (180-914) H 11/22/19 04:45 Folate 21.06 ng/mL (5.90 - >24.8) 11/22/19 04:45 TSH 0.38 uIU/mL (0.34-5.60) 11/21/19 04:56 PTH Intact 43 pg/mL (12-88) 11/23/19 04:41 Urine Color YELLOW 11/20/19 19:55 Urine Clarity HAZY (CLEAR) 11/20/19 19:55 Urine pH 5.5 PH (5.0-7.5) 11/20/19 19:55 Ur Specific [place] 1.010 (1.002-1.030) 11/20/19 19:55 Urine Protein NEGATIVE mg/dL (NEGATIVE) 11/20/19 19:55 Urine Glucose (UA) NEGATIVE mg/dL (NEGATIVE) 11/20/19 19:55 Urine Ketones NEGATIVE mg/dL (NEGATIVE) 11/20/19 19:55 Urine Occult Blood NEGATIVE (NEGATIVE) 11/20/19 19:55 Urine Nitrite NEGATIVE (NEGATIVE) 11/20/19 19:55 Urine Bilirubin NEGATIVE (NEGATIVE) 11/20/19 19:55 Urine Urobilinogen 0.2 (NORMAL) E.U./dL (NORMAL) 11/20/19 19:55 Ur Leukocyte Esterase NEGATIVE (NEGATIVE) 11/20/19 19:55 Urine RBC None Seen /HPF (0-5) 11/20/19 19:55 Urine WBC 0-3 /HPF (0-5) 11/20/19 19:55 Ur Squamous Epith Cells RARE Squamous (<= Few) 11/20/19 19:55 Urine Bacteria Many /HPF (None Seen) H 11/20/19 19:55 Ur Microscopic Review INDICATED 11/20/19 19:55 Urine Culture Comments INDICATED 11/20/19 19:55 Nasal Screen MRSA (PCR) NEGATIVE (NEGATIVE) 11/20/19 18:45 Urine Opiates Screen NEGATIVE (NEGATIVE) 11/20/19 19:55 Ur Oxycodone Screen NEGATIVE (NEGATIVE) 11/20/19 19:55 Urine Methadone Screen NEGATIVE (NEGATIVE) 11/20/19 19:55 Ur Propoxyphene Screen NEGATIVE (NEGATIVE) 11/20/19 19:55 Ur Barbiturates Screen NEGATIVE (NEGATIVE) 11/20/19 19:55 Ur Tricyclics Screen NEGATIVE (NEGATIVE) 11/20/19 19:55 Ur Phencyclidine Scrn NEGATIVE (NEGATIVE) 11/20/19 19:55 Ur Amphetamine Screen NEGATIVE (NEGATIVE) 11/20/19 19:55 U Methamphetamines Scrn NEGATIVE (NEGATIVE) 11/20/19 19:55 U Benzodiazepines Scrn NEGATIVE (NEGATIVE) 11/20/19 19:55 Urine Cocaine Screen NEGATIVE (NEGATIVE) 11/20/19 19:55 U Cannabinoids Screen NEGATIVE (NEGATIVE) 11/20/19 19:55 Ethyl Alcohol 22.8 mg/dL 11/21/19 04:56
[2019-11-25] MEDS: PRENATAL VITAMIN TABLET PO SCH (08:58)
[2019-11-25] MEDS: busPIRone 5 MG TABLET PO SCH ×2 (08:58→21:18)
[2019-11-25] MEDS: FERROUS GLUCONATE 324 MG TABLET PO SCH (08:58)
[2019-11-25] MEDS: DULoxetine 30 MG CAPSULE PO SCH (08:59)
[2019-11-25] MEDS: FAMOTIDINE 20 MG TABLET PO SCH ×2 (09:00→21:18)
[2019-11-25] MEDS: VENLAFAXINE ER 75 MG CAPSULE PO SCH (09:00)
[2019-11-25] MEDS: THIAMINE 100 MG TABLET PO SCH (09:01)
[2019-11-25] MEDS: LACTULOSE 10 GM/15 ML BOTTLE PO SCH ×2 (09:10→17:13)
[2019-11-25] MEDS: METOPROLOL SUCCINATE 25 MG TABLET PO SCH ×2 (09:13→12:10)
[2019-11-25] MEDS ORDERED: LORazepam 2 MG/ML VIAL IVP PRN (10:26)
[2019-11-25 12:51] LABS: HEPATITIS C ANTIBODY NON-REACTIVE (NON-REACTIVE)
[2019-11-25] MEDS: SUMAtriptan 6 MG/0.5 ML VIAL SUBQ PRN (16:59)
[2019-11-25] MEDS: traZODone 50 MG TABLET PO SCH (21:18)
[2019-11-26] MEDS: SODIUM CHLORIDE FLUSH 0.9% 10 ML SYRINGE IVP SCH ×4 (00:24→23:58)
[2019-11-26] MEDS: CIPROFLOXACIN 400 MG/200 ML 400 MG/200 ML BAG IV SCH ×3 (01:10→21:31)
[2019-11-26] MEDS: D5NS W/20 MEQ KCL 1,000 ML IV SCH (01:10)
[2019-11-26 05:56] LABS: BASOPHILS % (AUTO) 0.6 %; EOSINOPHILS % (AUTO) 0.9 %; LYMPHOCYTES # (AUTO) 1.7 10^3/uL (1.5-3.5); LYMPHOCYTES % (AUTO) 52.1 %; MEAN CORPUSCULAR HEMOGLOBIN 34.3 pg (27.0-31.0); MEAN CORPUSCULAR HGB CONC 30.9 g/dL (32.0-36.0); MEAN CORPUSCULAR VOLUME 111.1 fL (81.0-99.0); MEAN PLATELET VOLUME 12.5 fL (7.9-10.8); MONOCYTES # (AUTO) 0.4 10^3/uL (0.0-1.0); MONOCYTES % (AUTO) 12.6 %; NEUTROPHILS # (AUTO) 1.1 10^3/uL (1.5-6.6); NEUTROPHILS % (AUTO) 32.9 %; PLT - PLATELET COUNT 55 10^3/uL (130-450); RED BLOOD COUNT 1.98 10^6/uL (4.20-5.40); RED CELL DISTRIBUTION WIDTH 19.5 % (12.0-15.0); WHITE BLOOD COUNT 3.3 x10^3/uL (4.8-10.8)
[2019-11-26 06:02] LABS: HGB - HEMOGLOBIN 6.8 g/dL (12.0-16.0)
[2019-11-26 06:12] LABS: ALBUMIN 1.9 g/dL (3.2-5.5); ALBUMIN/GLOBULIN RATIO 0.7 (1.0-2.2); ALKALINE PHOSPHATASE 390 IU/L (42-121); ALT ALANINE AMINOTRANSFERASE 65 IU/L (10-60); AST ASPARTATE AMINOTRANSFERASE 107 IU/L (10-42); BILIRUBIN,TOTAL 5.6 mg/dL (0.2-1.0); BUN - BLOOD UREA NITROGEN < 5 mg/dL (6-20); CARBON DIOXIDE - CO2 27 mmol/L (21-32); CHLORIDE 107 mmol/L (101-111); CREATININE 0.4 mg/dL (0.4-1.0); GLUCOSE 95 mg/dL (70-100); MAGNESIUM 1.8 mg/dL (1.7-2.8); SODIUM 140 mmol/L (135-145); TOTAL PROTEIN 4.5 g/dL (6.7-8.2)
[2019-11-26] MEDS: PANTOPRAZOLE 40 MG TABLET PO SCH (06:19)
[2019-11-26] MEDS: HYDROmorphone 0.5 MG/0.5 ML SYRINGE IVP PRN (06:24)
[2019-11-26 06:29] LABS: PLATELET ESTIMATE, MANUAL DECREASED (<130,000) (NORMAL)
[2019-11-26] MEDS ORDERED: traZODone 50 MG TABLET PO PRN (09:27)
--- NOTE | 2019-11-26 09:29 | PROVIDER PROGRESS NOTE ---
Assessment/Plan - Problem List (1) Hypersomnolence Assessment/Plan: This morning she tried to walk, with her eyes closed, without a walker, and said she was "going home with her mother". She was guided back to bed by the charge nurse, [employer], using a walker. Her eyes were closed during the entire incident. I witnessed this. Librium taper has been finished. She refused her Lactulose yesterday, and ammonia level went up today, adding to confusion. I have instructed the RN that her "shaking" is not a tremor of withdrawal but is asterixis of hepatic failure. Will stop the CIWA scale and stop all Ativan, to allow her to awaken. Will decrease the home pm dose of Desyrel and make it prn insomnia, not a scheduled med. (2) Anemia Qualifiers: Anemia type: iron deficiency Assessment/Plan: Hemoglobin dropped to below 7, it was 6.8 today. Blood transfusion is ordered for today. She is also to be getting oral iron replacement started several days ago. She also has a component of hemodilution all anemia, is 3 L positive and fluid balance since admission. There is also a probable bone marrow suppression issue with her heavy alcohol use history. (3) Anemia due to GI blood loss Assessment/Plan: Hemoglobin dropped to under 7 today at 6.8. She had a heme positive stool earlier this admission. She also is 3 liters positive and overall fluid status since admission. A blood transfusion has been ordered for today. Another guaiac of stool was ordered today as well. Follow CBC daily. (4) Pulmonary edema Assessment/Plan: Yesterday's chest x-ray showed vascular congestion, no infiltrate (which was suspected after her witnessed aspiration). She got Lasix IV x1 yesterday. There is no oxygen desaturation. She had an Echo this admission showing preserved LVEF. This is probably volume overload from being 3+ L fluid positive overall during admission (5) Hypotension Assessment/Plan: She runs a "soft" BP. Partly from her anemia which today will get a blood transfusion. She overall runs a soft blood pressure probably chronically. (6) E. coli UTI Assessment/Plan: She was started on oral Keflex on her first day, changed to IV ceftriaxone when she spiked a fever several days ago. A total 7-day course of antibiotics is planned. (7) Urinary retention Assessment/Plan: She had a Skinner when she was in the ICU and going through withdrawal, this was stopped, she then had documented urinary retention and a Skinner had to be reinserted. Plan on discontinuing the Skinner when she is more awake from her current hyperso mnolence, possibly tomorrow. (8) Hepatic encephalopathy Assessment/Plan: She has asterixis and confusion. Yesterday she refused lactulose and the ammonia level went up today. Continue with the plan for lactulose management for hyperammonemia. Follow ammonia level daily. She is not yet ready for Social Work consultation regarding alcohol detox. (9) Alcoholic hepatitis Qualifiers: Ascites presence: unspecified Qualified Code(s): K70.10 - Alcoholic hepatitis without ascites Assessment/Plan: LFTs are improving daily since admission (10) Thrombocytopenia Assessment/Plan: Admission platelets were in the 20s, they have increased daily from 30s to 40s and today 55K. There is no overt bleeding. (11) Fracture of left proximal fibula Qualifiers: Encounter type: subsequent encounter Fracture type: closed Fracture morphology: unspecified fracture morphology Assessment/Plan: This occurred with her multiple falls at home. Orthopedics saw her in the ER and placed a splint. She is tolerating PT, standing and walking. (12) Multiple contusions Assessment/Plan: She had multiple falls in her past recent history and remotely, probably related to alcohol abuse and intoxication or ataxia from chronic liver disease These bruises are all slowly improving everywhere. (13) Facial contusion Qualifiers: Encounter type: subsequent encounter Qualified Code(s): S00.83XD - Contusion of other part of head, subsequent encounter Assessment/Plan: Improving (14) LBBB (left bundle branch block) Assessment/Plan: This is a chronic finding, present on EKGs from years back. An Echo was done during this hospitalization, which had never been done before, it shows preserved LV function. (15) Migraine Assessment/Plan: She again had a headache today, as on her first day of admission. Her home dose of Sumatriptan will be given as needed (16) Sepsis due to gram-negative UTI Assessment/Plan: Resolved (17) Fever Assessment/Plan: Resolved (18) Hypokalemia Assessment/Plan: Resolved with replacement (19) Aspiration into airway Assessment/Plan: Resolved. 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 Assessment/Plan: Resolved (21) Hypophosphatemia Assessment/Plan: Resolved - Current Meds Current Meds: Current Medications Generic Name Dose Route Start Last Admin Trade Name Freq PRN Reason Stop Dose Admin Buspirone HCl 15 mg 11/21/19 09:00 11/25/19 21:18 Buspar PO 15 mg BID ENDER Administration Duloxetine HCl 60 mg 11/21/19 09:00 11/25/19 08:59 Cymbalta PO 60 mg DAILY ENDER Administration Famotidine 20 mg 11/20/19 21:00 11/25/19 21:18 Pepcid PO 20 mg BID ENDER Administration Ferrous Gluconate 324 mg 11/22/19 08:00 11/25/19 08:58 Fergon PO 324 mg DAILYWM ENDER Administration Hydromorphone HCl 0.5 mg 11/20/19 17:22 11/26/19 06:24 Dilaudid Inj Syringe IVP 0.5 mg Q2H PRN Administration Pain 8 to 10 Ciprofloxacin 400 mg in 200 mls @ 200 mls/hr 11/23/19 10:00 11/26/19 03:05 Cipro 400 Mg/200 Ml IV Infused Q8H ENDER Infusion Potassium Chloride/Dextrose/Sod Cl 1,000 mls @ 40 mls/hr 11/25/19 08:52 11/26/19 01:10 IV 40 mls/hr .Q25H ENDER Administration Lactulose 10 gm 11/22/19 09:00 11/25/19 17:13 Lactulose PO Not Given 0900,1600 ENDER Lorazepam 1 mg 11/25/19 10:26 11/26/19 08:11 Ativan Inj (Vial) IVP 1 mg Q4H PRN Administration CIWA >8 Protocol Metoprolol Succinate 12.5 mg 11/25/19 12:00 11/25/19 12:10 Toprol Xl PO Not Given 1200 EDNER Pantoprazole Sodium 40 mg 11/21/19 16:00 11/26/19 06:19 Protonix PO 40 mg QDAC ENDER Administration Multivit/Folic Acid/Iron 1 tab 11/22/19 08:00 11/25/19 08:58 Trinatal Rx 1 PO 1 tab DAILYWM ENDER Administration Sodium Chloride 10 ml 11/21/19 01:00 11/26/19 00:24 Normal Saline Flush 0.9% IVP Not Given 0100,0900,1700 ENDER Sodium Chloride 10 ml 11/20/19 17:22 11/25/19 22:11 Normal Saline Flush 0.9% IVP 10 ml PRN PRN Administration NEEDED PER PROVIDER ORDERS Sumatriptan Succinate 6 mg 11/25/19 15:44 11/25/19 16:59 Imitrex Inj SUBQ 6 mg BID PRN Administration MIGRAINE Thiamine HCl 100 mg 11/22/19 09:00 11/25/19 09:01 Vitamin B-1 PO 100 mg DAILY ENDER Administration Trazodone HCl 150 mg 11/20/19 21:00 11/25/19 21:18 Desyrel PO 150 mg QPM ENDER Administration Venlafaxine HCl 75 mg 11/21/19 09:00 11/25/19 09:00 Effexor Er PO 75 mg DAILY ENDER Administration - Lab Result Fish Bone Diagrams: 11/26/19 05:35 11/26/19 05:35 - Additional Planning My Orders: My Active Orders 11/25/19 08:52 D5ns W/20 Meq KCl 1,000 ml IV 40 mls/hr 11/25/19 10:26 LORazepam INJ [Ativan Inj (Vial)] 1 mg IVP Q4H PRN 11/25/19 12:00 Metoprolol Succinate [Toprol Xl] 12.5 mg PO 1200 11/25/19 15:44 Sumatriptan Inj [Imitrex Inj] 6 mg SUBQ BID PRN 11/26/19 09:27 traZODone [Desyrel] 75 mg PO QPM PRN 11/27/19 05:00 AMMONIA [CHEM] DAILYLAB Subjective - Subjective Patient Reports: Resting Comfortably Nursing Reports: Other (This morning she was standing and suddenly wanted to leave here room, walking with eyes closed and without a walker, per her [employer].) Objective Vital Signs: Vital Signs - 24 hr 11/25/19 11/25/19 11/25/19 12:05 16:45 21:00 Temperature 36.9 C 37.0 C 36.6 C Heart Rate [ 97 81 81 Monitoring electrodes] Respiratory 14 14 14 Rate Blood Pressure 100/72 114/62 117/77 [Left Brachial artery] O2 Saturation 96 99 98 11/25/19 11/26/19 11/26/19 22:05 00:20 05:00 Temperature 36.8 C 36.9 C 37.6 C H Heart Rate [ 79 76 90 Monitoring electrodes] Respiratory 16 16 16 Rate Blood Pressure 145/68 H 104/58 L 105/57 L [Left Brachial artery] O2 Saturation 99 96 98 11/26/19 08:33 Temperature 37.0 C Heart Rate [ 90 Monitoring electrodes] Respiratory 20 Rate Blood Pressure 95/54 L [Left Brachial artery] O2 Saturation 99 Oxygen O2 Source Room air I&O (Last 24 Hrs): Intake and Output Totals x24h 11/24/19 11/25/19 11/26/19 23:59 23:59 23:59 Intake Total 3587 3389.000 676.667 Output Total 3082 3625 1400 Balance 505 -236.000 -723.333 General: Other (Somnolent, keeps eyes closed, was able to bear weight this a.m.) HEENT: Mucous membr. moist/pink, Other Neck: Supple (On chin is smaller and turning yellow) Neuro: Other (Confused, has a resting tremor of her hands and arms (asterixis).) Cardiovascular: Regular rate Respiratory: No respiratory distress Abdomen: Soft Extremities: Other (1+ ankle edema, bruises are all improving, left leg brace/splint ordered for the fracture L leg fracture) - Results Results: Laboratory Results WBC 3.3 x10^3/uL (4.8-10.8) L 11/26/19 05:35 RBC 1.98 10^6/uL (4.20-5.40) L 11/26/19 05:35 Hgb 6.8 g/dL (12.0-16.0) L* 11/26/19 05:35 Hct 22.0 % (37.0-47.0) L 11/26/19 05:35 MCV 111.1 fL (81.0-99.0) H 11/26/19 05:35 MCH 34.3 pg (27.0-31.0) H 11/26/19 05:35 MCHC 30.9 g/dL (32.0-36.0) L 11/26/19 05:35 RDW 19.5 % (12.0-15.0) H 11/26/19 05:35 Plt Count 55 10^3/uL (130-450) L 11/26/19 05:35 MPV 12.5 fL (7.9-10.8) H 11/26/19 05:35 Neut # (Auto) 1.1 10^3/uL (1.5-6.6) L 11/26/19 05:35 Lymph # (Auto) 1.7 10^3/uL (1.5-3.5) 11/26/19 05:35 Nance # (Auto) 0.4 10^3/uL (0.0-1.0) 11/26/19 05:35 Eos # (Auto) 0.0 10^3/uL (0.0-0.7) 11/26/19 05:35 Baso # (Auto) 0.0 10^3/uL (0.0-0.1) 11/26/19 05:35 Absolute Nucleated RBC 0.13 x10^3/uL 11/26/19 05:35 Nucleated RBC % 4.0 /100WBC 11/26/19 05:35 Manual Slide Review Indicated 11/26/19 05:35 Platelet Estimate DECREASED (<130,000) (NORMAL) 11/26/19 05:35 RBC Morph Micro Appear 1+ ANISOCYTOSIS (NORMAL) 2+ MACROCYTOSIS (NORMAL) 1+ MICROCYTOSIS (NORMAL) 1+ HYPOCHROMASIA (NORMAL) 1+ POLYCHROMASIA (NORMAL) 11/26/19 05:35 RBC Morph Micro Appear 1+ ANISOCYTOSIS (NORMAL) 2+ MACROCYTOSIS (NORMAL) 1+ MICROCYTOSIS (NORMAL) 1+ HYPOCHROMASIA (NORMAL) 1+ POLYCHROMASIA (NORMAL) 0 11/26/19 05:35 RBC Morph Micro Appear 1+ ANISOCYTOSIS (NORMAL) 2+ MACROCYTOSIS (NORMAL) 1+ MICROCYTOSIS (NORMAL) 1+ HYPOCHROMASIA (NORMAL) 1+ POLYCHROMASIA (NORMAL) 11/26/19 05:35 RBC Morph Micro Appear 1+ ANISOCYTOSIS (NORMAL) 2+ MACROCYTOSIS (NORMAL) 1+ MICROCYTOSIS (NORMAL) 1+ HYPOCHROMASIA (NORMAL) 1+ POLYCHROMASIA (NORMAL) 11/26/19 05:35 RBC Morph Micro Appear 1+ ANISOCYTOSIS (NORMAL) 2+ MACROCYTOSIS (NORMAL) 1+ MICROCYTOSIS (NORMAL) 1+ HYPOCHROMASIA (NORMAL) 1+ POLYCHROMASIA (NORMAL) 11/26/19 05:35 PT 14.1 secs (9.9-12.6) H 11/24/19 04:49 INR 1.3 (0.8-1.2) H 11/24/19 04:49 Sodium 140 mmol/L (135-145) 11/26/19 05:35 Potassium 3.9 mmol/L (3.5-5.0) 11/26/19 05:35 Chloride 107 mmol/L (101-111) 11/26/19 05:35 Carbon Dioxide 27 mmol/L (21-32) 11/26/19 05:35 Anion Gap 6.0 (6-13) 11/26/19 05:35 BUN < 5 mg/dL (6-20) L 11/26/19 05:35 Creatinine 0.4 mg/dL (0.4-1.0) 11/26/19 05:35 Estimated GFR (MDRD) 165 (>89) 11/26/19 05:35 Glucose 95 mg/dL (70-100) 11/26/19 05:35 POC Whole Bld Glucose 251 mg/dL (70 - 100) H 11/20/19 19:53 Lactic Acid 2.4 mmol/L (0.5-2.2) H 11/23/19 10:05 Calcium 8.0 mg/dL (8.5-10.3) L 11/26/19 05:35 Phosphorus 2.9 mg/dL (2.5-4.6) 11/25/19 05:40 Magnesium 1.8 mg/dL (1.7-2.8) 11/26/19 05:35 Iron 128 ug/dL (28-170) 11/22/19 04:45 TIBC 137 ug/dL (250-450) L 11/22/19 04:45 % Saturation 93 % (20-50) H 11/22/19 04:45 Transferrin 98 mg/dL (192-382) L 11/22/19 04:45 Total Bilirubin 5.6 mg/dL (0.2-1.0) H 11/26/19 05:35 AST 107 IU/L (10-42) H 11/26/19 05:35 ALT 65 IU/L (10-60) H 11/26/19 05:35 Alkaline Phosphatase 390 IU/L (42-121) H 11/26/19 05:35 Ammonia 65.2 umol/L (7-35) H 11/26/19 05:35 Total Protein 4.5 g/dL (6.7-8.2) L 11/26/19 05:35 Albumin 1.9 g/dL (3.2-5.5) L 11/26/19 05:35 Globulin 2.6 g/dL (2.1-4.2) 11/26/19 05:35 Albumin/Globulin Ratio 0.7 (1.0-2.2) L 11/26/19 05:35 Lipase 32 U/L (22-51) 11/20/19 12:28 Vitamin B12 1460 pg/mL (180-914) H 11/22/19 04:45 Folate 21.06 ng/mL (5.90 - >24.8) 11/22/19 04:45 TSH 0.38 uIU/mL (0.34-5.60) 11/21/19 04:56 PTH Intact 43 pg/mL (12-88) 11/23/19 04:41 Urine Color YELLOW 11/20/19 19:55 Urine Clarity HAZY (CLEAR) 11/20/19 19:55 Urine pH 5.5 PH (5.0-7.5) 11/20/19 19:55 Ur Specific [place] 1.010 (1.002-1.030) 11/20/19 19:55 Urine Protein NEGATIVE mg/dL (NEGATIVE) 11/20/19 19:55 Urine Glucose (UA) NEGATIVE mg/dL (NEGATIVE) 11/20/19 19:55 Urine Ketones NEGATIVE mg/dL (NEGATIVE) 11/20/19 19:55 Urine Occult Blood NEGATIVE (NEGATIVE) 11/20/19 19:55 Urine Nitrite NEGATIVE (NEGATIVE) 11/20/19 19:55 Urine Bilirubin NEGATIVE (NEGATIVE) 11/20/19 19:55 Urine Urobilinogen 0.2 (NORMAL) E.U./dL (NORMAL) 11/20/19 19:55 Ur Leukocyte Esterase NEGATIVE (NEGATIVE) 11/20/19 19:55 Urine RBC None Seen /HPF (0-5) 11/20/19 19:55 Urine WBC 0-3 /HPF (0-5) 11/20/19 19:55 Ur Squamous Epith Cells RARE Squamous (<= Few) 11/20/19 19:55 Urine Bacteria Many /HPF (None Seen) H 11/20/19 19:55 Ur Microscopic Review INDICATED 11/20/19 19:55 Urine Culture Comments INDICATED 11/20/19 19:55 Nasal Screen MRSA (PCR) NEGATIVE (NEGATIVE) 11/20/19 18:45 Urine Opiates Screen NEGATIVE (NEGATIVE) 11/20/19 19:55 Ur Oxycodone Screen NEGATIVE (NEGATIVE) 11/20/19 19:55 Urine Methadone Screen NEGATIVE (NEGATIVE) 11/20/19 19:55 Ur Propoxyphene Screen NEGATIVE (NEGATIVE) 11/20/19 19:55 Ur Barbiturates Screen NEGATIVE (NEGATIVE) 11/20/19 19:55 Ur Tricyclics Screen NEGATIVE (NEGATIVE) 11/20/19 19:55 Ur Phencyclidine Scrn NEGATIVE (NEGATIVE) 11/20/19 19:55 Ur Amphetamine Screen NEGATIVE (NEGATIVE) 11/20/19 19:55 U Methamphetamines Scrn NEGATIVE (NEGATIVE) 11/20/19 19:55 U Benzodiazepines Scrn NEGATIVE (NEGATIVE) 11/20/19 19:55 Urine Cocaine Screen NEGATIVE (NEGATIVE) 11/20/19 19:55 U Cannabinoids Screen NEGATIVE (NEGATIVE) 11/20/19 19:55 Ethyl Alcohol 22.8 mg/dL 11/21/19 04:56 Hepatitis A IgM Ab NON-REACTIVE (NON-REACTIVE) 11/21/19 04:56 Hep Bs Immunity Index 570 mIU/mL (> OR = 10) 11/21/19 04:56 Hep B Core Total Ab NON-REACTIVE (NON-REACTIVE) 11/21/19 04:56 Hepatitis C Antibody NON-REACTIVE (NON-REACTIVE) 11/21/19 04:56 Hep C Ab Signal/Cutoff 0.00 (<1.00) 11/21/19 04:56 Blood Type O POSITIVE 11/26/19 07:35 Blood Type Recheck O POSITIVE 11/26/19 06:15 Antibody Screen NEGATIVE 11/26/19 07:35 Crossmatch IS Only See Detail 11/26/19 07:35
[2019-11-26] MEDS: PRENATAL VITAMIN TABLET PO SCH (10:03)
[2019-11-26] MEDS: DULoxetine 30 MG CAPSULE PO SCH (10:03)
[2019-11-26] MEDS: VENLAFAXINE ER 75 MG CAPSULE PO SCH (10:04)
[2019-11-26] MEDS: FERROUS GLUCONATE 324 MG TABLET PO SCH (10:04)
[2019-11-26] MEDS: THIAMINE 100 MG TABLET PO SCH (10:04)
[2019-11-26] MEDS: FAMOTIDINE 20 MG TABLET PO SCH ×2 (10:04→21:31)
[2019-11-26] MEDS: LACTULOSE 10 GM/15 ML BOTTLE PO SCH ×2 (10:05→17:00)
[2019-11-26] MEDS: busPIRone 5 MG TABLET PO SCH ×2 (10:40→21:31)
[2019-11-26] MEDS: METOPROLOL SUCCINATE 25 MG TABLET PO SCH (11:34)
[2019-11-26] MEDS: SUMAtriptan 6 MG/0.5 ML VIAL SUBQ PRN (16:57)
[2019-11-27] MEDS: HYDROmorphone 0.5 MG/0.5 ML SYRINGE IVP PRN (00:03)
[2019-11-27] MEDS ORDERED: LORazepam 0.5 MG TABLET PO PRN (02:21)
[2019-11-27] MEDS ORDERED: LORazepam 1 MG TABLET PO PRN (02:46)
[2019-11-27] MEDS: D5NS W/20 MEQ KCL 1,000 ML IV SCH (04:00)
[2019-11-27] MEDS: CIPROFLOXACIN 400 MG/200 ML 400 MG/200 ML BAG IV SCH (05:22)
[2019-11-27 05:47] LABS: BASOPHILS % (AUTO) 0.5 %; EOSINOPHILS % (AUTO) 0.7 %; LYMPHOCYTES # (AUTO) 1.8 10^3/uL (1.5-3.5); LYMPHOCYTES % (AUTO) 45.1 %; MEAN CORPUSCULAR HEMOGLOBIN 34.8 pg (27.0-31.0); MEAN CORPUSCULAR VOLUME 108.7 fL (81.0-99.0); MEAN PLATELET VOLUME 12.5 fL (7.9-10.8); MONOCYTES # (AUTO) 0.7 10^3/uL (0.0-1.0); MONOCYTES % (AUTO) 17.2 %; NEUTROPHILS # (AUTO) 1.4 10^3/uL (1.5-6.6); NEUTROPHILS % (AUTO) 35.5 %; PLT - PLATELET COUNT 55 10^3/uL (130-450); RED CELL DISTRIBUTION WIDTH 22.1 % (12.0-15.0); WHITE BLOOD COUNT 4.1 x10^3/uL (4.8-10.8)
[2019-11-27 06:08] LABS: ALBUMIN 1.9 g/dL (3.2-5.5); ALBUMIN/GLOBULIN RATIO 0.7 (1.0-2.2); ALKALINE PHOSPHATASE 355 IU/L (42-121); ALT ALANINE AMINOTRANSFERASE 58 IU/L (10-60); AST ASPARTATE AMINOTRANSFERASE 90 IU/L (10-42); BILIRUBIN,TOTAL 4.8 mg/dL (0.2-1.0); BUN - BLOOD UREA NITROGEN < 5 mg/dL (6-20); CALCIUM 7.6 mg/dL (8.5-10.3); CARBON DIOXIDE - CO2 28 mmol/L (21-32); CHLORIDE 105 mmol/L (101-111); CREATININE 0.5 mg/dL (0.4-1.0); GLUCOSE 113 mg/dL (70-100); SODIUM 138 mmol/L (135-145); TOTAL PROTEIN 4.6 g/dL (6.7-8.2)
[2019-11-27 06:30] LABS: PLATELET MORPHOLOGY NORMAL APPEARANCE (NORMAL)
[2019-11-27 06:31] LABS: PLATELET ESTIMATE, MANUAL DECREASED (<130,000) (NORMAL)
[2019-11-27] MEDS: PANTOPRAZOLE 40 MG TABLET PO SCH (06:39)
[2019-11-27] MEDS ORDERED: POTASSIUM CHLORIDE 20 MEQ TABLET PO ONE (07:00)
[2019-11-27] MEDS ORDERED: FAMOTIDINE 20 MG TABLET PO SCH (09:00)
[2019-11-27] MEDS: VENLAFAXINE ER 75 MG CAPSULE PO SCH (09:19)
[2019-11-27] MEDS: THIAMINE 100 MG TABLET PO SCH (09:19)
[2019-11-27] MEDS: PRENATAL VITAMIN TABLET PO SCH (09:19)
[2019-11-27] MEDS: DULoxetine 30 MG CAPSULE PO SCH (09:19)
[2019-11-27] MEDS: busPIRone 5 MG TABLET PO SCH (09:19)
[2019-11-27] MEDS: FERROUS GLUCONATE 324 MG TABLET PO SCH (09:19)
[2019-11-27] MEDS: SODIUM CHLORIDE FLUSH 0.9% 10 ML SYRINGE IVP SCH ×2 (09:20→16:28)
[2019-11-27] MEDS: LACTULOSE 10 GM/15 ML BOTTLE PO SCH ×2 (09:28→16:26)
[2019-11-27] MEDS ORDERED: oxyCODONE 5 MG TABLET PO PRN (09:31)
--- NOTE | 2019-11-27 09:44 | PROVIDER PROGRESS NOTE ---
Subjective - Prog Note Date Prog Note Date: 11/27/19 - Subjective Subjective: She would like to go home as soon as possible to take care of her dog and cat at home. She reports no chest pain, dyspnea. Reports no blood in her stool or any evidence of bleeding. She still complains of left leg pain. Current Medications - Current Medications Current Medications: Active Medications Buspirone HCl (Buspar) 15 mg PO BID [facility] Last Admin: 11/27/19 09:19 Dose: 15 mg Documented by: Ciprofloxacin (Cipro) 250 mg PO BID [facility] Stop: 11/30/19 09:01 Duloxetine HCl (Cymbalta) 60 mg PO DAILY [facility] Last Admin: 11/27/19 09:19 Dose: 60 mg Documented by: Famotidine (Pepcid) 20 mg PO BID [facility] Last Admin: 11/27/19 09:19 Dose: 20 mg Documented by: Ferrous Gluconate (Fergon) 324 mg PO DAILYWM [facility] Last Admin: 11/27/19 09:19 Dose: 324 mg Documented by: Gabapentin (Neurontin) 300 mg PO TID [facility] Lactulose (Lactulose) 10 gm PO 0900,1600 [facility] Last Admin: 11/27/19 09:28 Dose: 10 gm Documented by: Metoprolol Succinate (Toprol Xl) 12.5 mg PO 1200 [facility] Last Admin: 11/27/19 11:37 Dose: 12.5 mg Documented by: Ondansetron HCl (Zofran Odt) 4 mg TL Q6HR PRN PRN Reason: Nausea / Vomiting Oxycodone HCl (Roxicodone) 5 mg PO Q4HR PRN PRN Reason: PAIN Last Admin: 11/27/19 11:37 Dose: 5 mg Documented by: Multivit/Folic Acid/Iron (Trinatal Rx 1) 1 tab PO DAILYWM [facility] Last Admin: 11/27/19 09:19 Dose: 1 tab Documented by: Sodium Chloride (Normal Saline Flush 0.9%) 10 ml IVP 0100,0900,1700 [facility] Last Admin: 11/27/19 09:20 Dose: 10 ml Documented by: Sodium Chloride (Normal Saline Flush 0.9%) 10 ml IVP PRN PRN PRN Reason: NEEDED PER PROVIDER ORDERS Last Admin: 11/25/19 22:11 Dose: 10 ml Documented by: Sumatriptan Succinate (Imitrex Inj) 6 mg SUBQ BID PRN PRN Reason: MIGRAINE Last Admin: 11/26/19 16:57 Dose: 6 mg Documented by: Thiamine HCl (Vitamin B-1) 100 mg PO DAILY [facility] Last Admin: 11/27/19 09:19 Dose: 100 mg Documented by: Trazodone HCl (Desyrel) 75 mg PO QPM PRN PRN Reason: Insomnia Venlafaxine HCl (Effexor Er) 75 mg PO DAILY [facility] Last Admin: 11/27/19 09:19 Dose: 75 mg Documented by: Zinc Oxide (Desitin) 113 gm TOP PRN PRN PRN Reason: Skin Care DULoxetine [Cymbalta] 60 mg PO DAILY 10/11/18 busPIRone [Buspar] 15 mg PO BID 10/11/18 traZODone [Desyrel] 150 mg PO QPM 10/11/18 Gabapentin 800 mg PO TID 11/20/19 Meloxicam 15 mg PO DAILY 11/20/19 Alendronate [Fosamax] 70 mg PO FR 11/21/19 Baclofen 10 mg PO TID 11/21/19 Famotidine [Pepcid] 20 mg PO BID 11/21/19 Furosemide 40 mg PO DAILY PRN 11/21/19 Metoprolol Succinate [Toprol Xl] 25 mg PO BID 11/21/19 Potassium Chloride 10 meq PO DAILY PRN 11/21/19 SUMAtriptan succinate [Sumatriptan Succinate] 6 mg SQ ONCE PRN 11/21/19 Valacyclovir HCl [Valacyclovir] 500 mg PO BID 11/21/19 Venlafaxine HCl 75 mg PO DAILY 11/21/19 Objective - Vital Signs/Intake & Output Reviewed Vital Signs: Yes Vital Signs: Vital Signs x48h Temp Pulse Resp BP Pulse Ox 11/27/19 09:00 36.7 C 87 20 118/75 99 11/27/19 04:13 36.8 C 81 18 136/70 H 98 Intake & Output: Intake & Output 11/24/19 11/25/19 11/26/19 11/27/19 23:59 23:59 23:59 23:59 Intake Total 3587 3389.000 3116.000 992.000 Output Total 3082 3625 5400 1600 Balance 505 -236.000 -2284.000 -608.000 - Objective General Appearance: positive: No acute distress, Alert Eyes Bilateral: positive: Normal inspection ENT: positive: ENT inspection nml Neck: positive: Nml inspection Respiratory: positive: No respiratory distress. negative: Wheezes, Rales Cardiovascular: positive: Regular rate & rhythm, No murmur. negative: Tachycardia, Bradycardia Abdomen: positive: Non-tender, No distention. negative: Tenderness, Guarding, Rebound Skin: positive: Warm, Dry Extremities: positive: No pedal edema, Other (Bilalteral ankle splints noted.) Neurologic/Psychiatric: positive: Oriented x3, Other (No focal motor deficits on exam.). negative: Disoriented to person, Disoriented to place, Disoriented to time - Lab Results Fish Bones: 11/27/19 05:40 11/27/19 05:40 Other Labs: Lab Results x24hrs 11/27/19 11/27/19 11/27/19 Range/Units 05:40 05:40 05:40 WBC 4.1 L (4.8-10.8) x10^3/uL RBC 2.30 L (4.20-5.40) 10^6/uL Hgb 8.0 L (12.0-16.0) g/dL Hct 25.0 L (37.0-47.0) % MCV 108.7 H (81.0-99.0) fL MCH 34.8 H (27.0-31.0) pg MCHC 32.0 (32.0-36.0) g/dL RDW 22.1 H (12.0-15.0) % Plt Count 55 L (130-450) 10^3/uL MPV 12.5 H (7.9-10.8) fL Neut # (Auto) 1.4 L (1.5-6.6) 10^3/uL Lymph # (Auto) 1.8 (1.5-3.5) 10^3/uL Harnett # (Auto) 0.7 (0.0-1.0) 10^3/uL Eos # (Auto) 0.0 (0.0-0.7) 10^3/uL Baso # (Auto) 0.0 (0.0-0.1) 10^3/uL Absolute Nucleated RBC 0.05 x10^3/uL Nucleated RBC % 1.2 /100WBC Manual Slide Review Indicated Platelet Estimate DECREASED (<130,000) (NORMAL) Platelet Morphology NORMAL APPEARANCE (NORMAL) RBC Morph Micro Appear 2+ ANISOCYTOSIS (NORMAL) Sodium 138 (135-145) mmol/L Potassium 3.4 L (3.5-5.0) mmol/L Chloride 105 (101-111) mmol/L Carbon Dioxide 28 (21-32) mmol/L Anion Gap 5.0 L (6-13) BUN < 5 L (6-20) mg/dL Creatinine 0.5 (0.4-1.0) mg/dL Estimated GFR (MDRD) 127 (>89) Glucose 113 H (70-100) mg/dL Calcium 7.6 L (8.5-10.3) mg/dL Total Bilirubin 4.8 H (0.2-1.0) mg/dL AST 90 H (10-42) IU/L ALT 58 (10-60) IU/L Alkaline Phosphatase 355 H (42-121) IU/L Ammonia 48.4 H (7-35) umol/L Total Protein 4.6 L (6.7-8.2) g/dL Albumin 1.9 L (3.2-5.5) g/dL Globulin 2.7 (2.1-4.2) g/dL Albumin/Globulin Ratio 0.7 L (1.0-2.2) Blood Type Antibody Screen Crossmatch IS Only 11/26/19 Range/Units 07:35 WBC (4.8-10.8) x10^3/uL RBC (4.20-5.40) 10^6/uL Hgb (12.0-16.0) g/dL Hct (37.0-47.0) % MCV (81.0-99.0) fL MCH (27.0-31.0) pg MCHC (32.0-36.0) g/dL RDW (12.0-15.0) % Plt Count (130-450) 10^3/uL MPV (7.9-10.8) fL Neut # (Auto) (1.5-6.6) 10^3/uL Lymph # (Auto) (1.5-3.5) 10^3/uL Harnett # (Auto) (0.0-1.0) 10^3/uL Eos # (Auto) (0.0-0.7) 10^3/uL Baso # (Auto) (0.0-0.1) 10^3/uL Absolute Nucleated RBC x10^3/uL Nucleated RBC % /100WBC Manual Slide Review Platelet Estimate (NORMAL) Platelet Morphology (NORMAL) RBC Morph Micro Appear (NORMAL) Sodium (135-145) mmol/L Potassium (3.5-5.0) mmol/L Chloride (101-111) mmol/L Carbon Dioxide (21-32) mmol/L Anion Gap (6-13) BUN (6-20) mg/dL Creatinine (0.4-1.0) mg/dL Estimated GFR (MDRD) (>89) Glucose (70-100) mg/dL Calcium (8.5-10.3) mg/dL Total Bilirubin (0.2-1.0) mg/dL AST (10-42) IU/L ALT (10-60) IU/L Alkaline Phosphatase (42-121) IU/L Ammonia (7-35) umol/L Total Protein (6.7-8.2) g/dL Albumin (3.2-5.5) g/dL Globulin (2.1-4.2) g/dL Albumin/Globulin Ratio (1.0-2.2) Blood Type O POSITIVE Antibody Screen NEGATIVE Crossmatch IS Only See Detail ABX Reporting Has patient been on IV antibiotics over the past 48 hours?: No Assessment/Plan - Problem List (1) Anemia Impression: This likely multifactorial and due to bone marrow suppression secondary to her alcohol use as well as hemo-dilutional given amount of IV fluids she received during this hospitalization. Iron studies are not suggestive of iron deficiency anemia. She did require 1 unit of packed red blood cells during this hospitalization and she has responded appropriately at hemoglobin improved to 8 from 6.8. Her initial stool was positive for occult blood but repeat yesterday was negative. There is no evidence of bleeding at this time. We will observe her overnight and recheck her hemoglobin tomorrow. If it is stable, she will be discharged home. She will need outpatient follow-up for repeat CBC as if she remains pancytopenic, she would likely benefit from hematology consult. (2) Alcoholic hepatitis Impression: These are elevated secondary to her alcohol use. They are improving on a daily basis. We will check an ultrasound of the right upper quadrant as she likely has cirrhosis. We will continue to trend LFTs while she is hospitalized. Discussed the importance of alcohol cessation with her today. Social work has been consulted to discuss options for her alcohol abuse. Qualifiers: Ascites presence: unspecified Qualified Code(s): K70.10 - Alcoholic hepatitis without ascites (3) E. coli UTI Impression: Her urine culture grew E. coli. Her blood cultures were negative. She has no fever or leukocytosis. Today will be her last day of ciprofloxacin. (4) Fracture of left proximal fibula Impression: Continue the oxycodone as needed for pain control. She is weightbearing as tolerated and will need outpatient follow-up with orthopedics. Continue with ph ysical therapy. Skilled nurse facility is recommended but she is declining and prefers to go home. Qualifiers: Encounter type: subsequent encounter Fracture type: closed Fracture morphology: unspecified fracture morphology (5) Alcoholism Impression: She did go through alcohol withdrawal during this hospitalization early on. There is no further evidence of withdrawal at this point in time. We will continue her on a multivitamin and thiamine orally. Once again, discussed the importance of alcohol cessation given her underlying liver disease. Social work has been consulted. (6) Hepatic encephalopathy Impression: This is improving. She was somnolent yesterday and ammonia elevated at 65. Today is down to the 40s. We will continue her on lactulose and titrate to 2-3 bowel movements a day. (7) Depression Impression: We have resumed her home Cymbalta and venlafaxine. (8) Chronic low back pain Impression: We will resume her home gabapentin today about a lower dose of 300 mg 3 times daily. We will not discharge her on her baclofen given she has been somnolent at times. (9) Hypokalemia Impression: Replace orally and recheck in the morning.
[2019-11-27] MEDS: METOPROLOL SUCCINATE 25 MG TABLET PO SCH (11:37)
[2019-11-27] MEDS ORDERED: GABAPENTIN 300 MG CAPSULE PO SCH (14:00)
[2019-11-27 15:56] VITALS: BP 140/76
--- NOTE | 2019-11-27 17:22 | Discharge Plan ---
Discharge Plan Problem Reviewed?: Yes Disposition: Against Medical Advice Condition: Fair Prescriptions: Lactulose 10 gm PO TID #1 bottle Gabapentin [Neurontin] 300 mg PO TID #30 capsule Vitamin [Trinatal Rx 1] 1 tab PO DAILYWM #30 tablet Thiamine [Vitamin B-1] 100 mg PO DAILY #30 tablet Diet: Regular Activity Restrictions: Wt Bearing as Tolerated Health Concerns: You were seen in the hospital after a fall and you were found to have signs of liver failure. This is likely due to your alcohol use. Bone marrow also appears to be suppressed and this produces your blood counts and platelets which help clot your blood. Your blood counts have been low during his hospitalization and you had needed a blood transfusion. It is recommended we observe you 1 more night to make sure your blood counts are stable but you are adamant on leaving AGAINST MEDICAL ADVICE. It is recommended you follow-up with your primary care physician in 1 week to make sure your blood counts are stable. It is important you stop drinking alcohol as your liver is very inflamed. If you continue to drink, your liver function will continue to decline and liver disease can be fatal. It is important you take lactulose which is prescribed for you. This helps decrease the ammonia levels in your blood which can cause you to be confused and sleepy. You should be having at least 2-3 bowel movements a day. You were also treated for urinary tract infection during this hospitalization. You have completed the course of antibiotics. You also have a fracture in your left leg and it is important that you follow-up with the orthopedic surgeon next week for follow-up. You may bear weight on this leg as tolerated. Plan of Treatment: Please take the medications as prescribed. It is recommended you decrease your dose of gabapentin to 300 mg 3 times a day and to stop the baclofen. Additional Instructions or Follow Up instructions: These follow-up with your primary care provider next week to make sure your blood counts are stable. Please also follow-up with the orthopedic surgeon next week for your leg fracture. No Smoking: If you smoke, Please STOP! Call for help. Follow-up with: Royer Mathur MD [Primary Care Provider] -
--- NOTE | 2019-11-27 17:25 | DISCHARGE SUMMARY ---
Discharge Summary Admit Date: 11/20/19 Discharge Date: 11/27/19 Discharging Provider: Tian Kay Primary Care Provider: Royer Mathur Code Status: Attempt Resuscitation Condition at Discharge: Fair Discharge Disposition: 07 Against Medical Advice - DIAGNOSES Admission Diagnoses: Hypotension Tachycardia Altered mental status with likely hepatic encephalopathy Frequent falls Left fibula fracture Multiple contusions Right ankle sprain Alcohol intoxication alcoholic otitis elevated LFTs Alcohol abuse Hypokalemia History of depression Discharge Diagnoses with Status of Each Condition: Anemia - ongoing. Alcoholic hepatitis - improving. E. coli UTI - resolved. Fracture of left proximal fibula - stable. Alcoholism - stable. Hepatic encephalopathy - resolved. Depression - stable. Chronic low back pain - stable. Hypokalemia - stable. - HPI History of Present Illness: H&P as per Dr. Negrete on 11/20/19: This is a 59-year-old white female with a history of depression, remote GI blee ding, alcohol abuse, chronic low back pain, L4-L5 surgery in the past, multiple visits to the ER with falls, pain and alcohol intoxication. The patient presented to the ER today with complaints of having fallen 3 times today. She describes it as "being shaky" then her legs just gave out. 1 of the falls on her face, causing a bloody nose. She is found to have multiple contusions on exam and also by x-rays was found to have a fracture of her left lower leg. She was seen by orthopedics and by general surgery in the ER, deemed to not have any surgical needs, the fibular fracture was splinted and right ankle sprain was diagnosed also. She is being admitted for further medical management by the hospitalist team. The patient is hypotensive with blood pressure 90, tachycardic with heart rate 115 and sinus rhythm. She is afebrile. She was intoxicated with a serum alcohol level of greater than 180. Over several hours, she was less intoxicated according to emergency room doctor, which is when he called for the hospitalist team to admit her. The patient has required pain medication for the fracture, received thiamine received 1 L of fluids of saline. - CONSULTS | PROCEDURES Consultations: Orthopedic Surgery, General Surgery, PT, Social Work - HOSPITAL COURSE Hospital Course: She was initially admitted to the ICU given the hypotension and tachycardia. She was treated with a banana bag and started on CIWA protocol given her alcohol history. She was started on scheduled Librium. She was found to have an elevated lactic acid of 5.6 and there was concern for sepsis due to UTI as urine culture grew E. coli. She was started on Keflex initially but then she became febrile and this was switched to Ceftriaxone. Her blood cultures were negative during this hospitalization. She was continued on IV fluids. Her ammonia was also found to be elevated in the 70s and she was started on lactulose. During this hospitalization, her LFTs began to improve. On admission, she is also found to be pancytopenic. Her stool was occult positive and this was checked due to anemia. This was felt to likely be hemo-dilutional given the amount of IV fluids she replaced. Her iron studies, B12, folate were unremarkable. She then began to develop signs of alcohol withdrawal and was started on IV Ativan. She required Ativan over the next 48 to 72 hours and she became quite somnolent. The Ativan was then weaned and she began to become more alert. She did have an episode of witnessed aspiration when she desatted to the 80s. An x-ray was obtained which showed pulmonary vascular congestion. She was given a dose of IV Lasix. Her oxygen saturations quickly improved. She had no further episodes of aspiration during this hospitalization. IV fluids were also discontinued given the pulmonary edema. Her hemoglobin continues to decrease and it dropped to 6.8 on November 25. She was transfused 1 unit of packed red blood cells with improvement of her hemoglobin to 8.0. Her stool was checked again and this was negative for occult blood. At this point, the patient had become more awake and was oriented. During this hospitalization as well, orthopedics evaluate her for a left fibular fracture and she initially required splinting. She now has bilateral ankle splints and is weightbearing as tolerated. Physical therapy evaluated the patient and recommended longterm facility. The patient declined this and preferred to go home. She is able to ambulate with a walker and she will will n eed one on discharge. During this hospitalization, her platelets have slowly improved and they are now stable in the 50s. Her ammonia is down to the 40s. On discharge I have asked her to decrease the dose of her gabapentin to 300 mg 3 times a day and to discontinue the baclofen as she has not been receiving it during this hospitalization. She was also provided a prescription for lactulose. I did not prescribe her any controlled substance including oxycodone. The plan was to observe her overnight to ensure that there is no evidence of bleeding and that her hemoglobin remained stable. Patient insistent in the late afternoon on going home to take care of her cat and dog. I discussed with her that we can work with social work to ensure that her pets are fed and safe at home. The patient insisted on going home. She has the capacity to make her own medical decisions. She is alert and oriented to self, location, year, month. She understands why she is in the hospital and why she remains here. She understands that she may potentially be bleeding and we would like to observe her. She also understands that she has significant liver disease and she must abstain from liquor. She understands that by going home, there may be a risk of ongoing bleeding and this could cause . She states that she understands that she could be bleeding and she is willing to take these risks and insists on going home this evening. I also informed her that insurance may not cover this hospitalization for these and is medical advice. She states she understands and is willing to take this risk as well. - ALLERGIES Allergies/Adverse Reactions: Allergies Allergy/AdvReac Type Severity Reaction Status Date / Time pregabalin [From Lyrica] Allergy Hives Verified 08/15/19 21:47 adhesive tape AdvReac Rash Verified 08/15/19 21:47 Sulfa (Sulfonamide AdvReac Itching Verified 08/15/19 21:47 Antibiotics) - MEDICATIONS Home Medications: Ambulatory Orders Medication Instructions Recorded Confirmed DULoxetine [Cymbalta] 60 mg PO DAILY 10/11/18 11/20/19 busPIRone [Buspar] 15 mg PO BID 10/11/18 11/20/19 traZODone [Desyrel] 150 mg PO QPM 10/11/18 11/20/19 Meloxicam 15 mg PO DAILY 11/20/19 11/20/19 Alendronate [Fosamax] 70 mg PO FR 11/21/19 11/21/19 Famotidine [Pepcid] 20 mg PO BID 11/21/19 11/21/19 Furosemide 40 mg PO DAILY PRN 11/21/19 11/21/19 Metoprolol Succinate [Toprol Xl] 25 mg PO BID 11/21/19 11/21/19 Potassium Chloride 10 meq PO DAILY PRN 11/21/19 11/21/19 SUMAtriptan succinate [Sumatriptan 6 mg SQ ONCE PRN 11/21/19 11/21/19 Succinate] Valacyclovir HCl [Valacyclovir] 500 mg PO BID 11/21/19 11/21/19 Venlafaxine HCl 75 mg PO DAILY 11/21/19 11/21/19 Gabapentin [Neurontin] 300 mg PO TID #30 capsule 11/27/19 Lactulose 10 gm PO TID #1 bottle 11/27/19 Vitamin [Trinatal Rx 1] 1 tab PO DAILYWM #30 tablet 11/27/19 Thiamine [Vitamin B-1] 100 mg PO DAILY #30 tablet 11/27/19 - PHYSICAL EXAM AT DISCHARGE General Appearance: positive: No acute distress, Alert Eyes Bilateral: positive: Normal inspection, Conjunctivae nml ENT: positive: ENT inspection nml Neck: positive: Nml inspection Respiratory: positive: No respiratory distress. negative: Wheezes, Rales Cardiovascular: positive: Regular rate & rhythm, No murmur. negative: Tachycardia, Bradycardia Abdomen: positive: Non-tender, No distention. negative: Tenderness, Guarding, Rebound Skin: positive: Warm, Dry Extremities: positive: No pedal edema, Other (Bilateral ankle splints noted.) Neurologic/Psychiatric: positive: Oriented x3, Other (No focal motor deficits on exam.). negative: Disoriented to person, Disoriented to place, Disoriented to time Physical Exam Other/Comments: Vital Signs - 24 hr 11/26/19 11/27/19 11/27/19 21:00 00:58 04:13 Temperature 37.4 C 37.3 C 36.8 C Heart Rate [ 91 93 81 Brachial] Heart Rate [ Monitoring electrodes] Respiratory 20 20 18 Rate Blood Pressure 147/83 H 107/68 136/70 H [Left Brachial artery] O2 Saturation 97 97 98 11/27/19 11/27/19 11/27/19 09:00 11:39 15:54 Temperature 36.7 C 36.8 C Heart Rate [ 87 82 Brachial] Heart Rate [ 79 Monitoring electrodes] Respiratory 20 20 Rate Blood Pressure 118/75 134/75 H 140/76 H [Left Brachial artery] O2 Saturation 99 97 Oxygen O2 Source Room air - LABS Result Diagrams: 11/27/19 05:40 11/27/19 05:40 - FOLLOW UP Follow Up: She was asked to follow-up with her primary care provider next week as well as orthopedic surgery. - TIME SPENT Time Spent in Discharge (Minutes): 35
[2019-11-27] MEDS ORDERED: CIPROFLOXACIN 250 MG TABLET PO SCH (18:00)
--- NOTE | 2019-11-27 18:32 | ED Physician Documentation ---
ED Addendum - Addendum Addendum: 11/27/19 18:27 I witnessed the patient walking across the parking lot with the use of a walker. She was in bilateral ankle braces, nonslip socks and a hospital gown. She also had pants on. I witnessed her trip, fall onto the left knee and then rolled into the bark dust. I left the emergency department along with several of the nursing staff to go and check on the patient. It appears that she had left AGAINST MEDICAL ADVICE from the inpatient side of the hospital. She is alert and oriented x3. She states that she does not want to go back into the hospital. She does not want to come into the emergency department. Appears to have an abrasion on the left knee. No scalp hematomas. No palpable skull fractures. No neck or back pain or tenderness. EMS came to the scene as well. She refused care from them as well. Patient understands that she could have traumatic injuries that could be missed such as skull fractures, intracranial hemorrhage, cervical spine fractures, lower extremity fractures. She understands the risks that all of these things including loss of current lifestyle, seizure, coma, . Patient continues to refuse any care and states that she is going to walk home with her walker. Offered to get her a ride home. Patient refuses this as well. There does not appear to be any grounds for an involuntary hold at this time. She is not hallucinating. She is not psychotic. She is not intoxicated. She is alert and oriented x3. Speaks calmly and clearly. She states that she does not want to return to the hospital or the emergency department. Patient even refuses basic medical care such as cleaning and dressing the abrasion on her left knee. Patient informed that she is welcome to return to the emergency department at anytime should she change her mind. Case was also discussed with the chief clinical officer, Breana Marino and Dr. Allie Kay.
== END 2019-11-27 17:30 | disposition left against medical advice (07) | DRG 432 ==
LOC: EDUNIT# → ED 12:14 → ICU 17:22 → MS2 11-25 21:44
PROVIDERS: ADMIT Internal Medicine; ATTEND Internal Medicine
PROC: 30233N1 Transfusion of Nonautologous Red Blood Cells into Peripheral Vein, Percutaneous Approach (ICD-10-PCS; principal; 2019-11-26)
DX: K70.40 Alcoholic hepatic failure without coma (principal); A41.51 Sepsis due to Escherichia coli [E. coli]; N39.0 Urinary tract infection, site not specified; F10.232 Alcohol dependence with withdrawal with perceptual disturbance; T17.898A Other foreign object in other parts of respiratory tract causing other injury, initial encounter; D61.818 Other pancytopenia; T51.0X1A Toxic effect of ethanol, accidental (unintentional), initial encounter; R09.89 Other specified symptoms and signs involving the circulatory and respiratory systems; K70.10 Alcoholic hepatitis without ascites; F10.229 Alcohol dependence with intoxication, unspecified; Y90.6 Blood alcohol level of 120-199 mg/100 ml; S82.832A Other fracture of upper and lower end of left fibula, initial encounter for closed fracture; S93.401A Sprain of unspecified ligament of right ankle, initial encounter; S00.33XA Contusion of nose, initial encounter; S00.83XA Contusion of other part of head, initial encounter; T14.8XXA Other injury of unspecified body region, initial encounter; W19.XXXA Unspecified fall, initial encounter; Y92.9 Unspecified place or not applicable; F32.9 Major depressive disorder, single episode, unspecified; E87.6 Hypokalemia; I95.9 Hypotension, unspecified; I44.7 Left bundle-branch block, unspecified; R00.0 Tachycardia, unspecified; G89.29 Other chronic pain; M54.5 Low back pain; F17.210 Nicotine dependence, cigarettes, uncomplicated; R27.8 Other lack of coordination; G43.909 Migraine, unspecified, not intractable, without status migrainosus; R40.0 Somnolence; T42.4X5A Adverse effect of benzodiazepines, initial encounter; Y92.230 Patient room in hospital as the place of occurrence of the external cause; R33.9 Retention of urine, unspecified; R19.7 Diarrhea, unspecified; E83.39 Other disorders of phosphorus metabolism; Z53.29 Procedure and treatment not carried out because of patient's decision for other reasons; Z91.81 History of falling; Z79.1 Long term (current) use of non-steroidal anti-inflammatories (NSAID); Z79.899 Other long term (current) drug therapy
CPT/HCPCS: 29505; 36415; 70450; 70486; 71045; 72125; 73564; 73610; 73630; 80053; 80306; 80320; 81001; 82140; 82272; 82607; 82746; 83540; 83605; 83690; 83735; 83970; 84100; 84443; 84466; 85014; 85018; 85025; 85027; 85610; 86317; 86704; 86709; 86803; 86850; 86900; 86901; 86920; 87040; 87086; 87150; 87181; 93005; 93306; 96361; 96365; 97116; 97162; 97530; 99285; A9270; J1170; J2060; J3411; J7040; J8499; P9016; 81003; 83519

== ENCOUNTER 2020-02-06 13:40 | Outpatient (CLI) | payer MEDICAID | END 2020-02-06 13:41 | disposition critical access hospital (66) | LOC: EMS 13:40 | PROVIDERS: ATTEND Surgery | DX: R53.1 Weakness (principal); R41.0 Disorientation, unspecified | CPT/HCPCS: A0425; A0427; A0999 ==

== ENCOUNTER 2020-02-06 13:49 | Inpatient (IN) | payer MEDICAID ==
[2020-02-06] MEDS ORDERED: THIAMINE INJ 100 MG in SODIUM CHLORIDE 0.9% 50 ML IV STA (13:56)
--- NOTE | 2020-02-06 14:00 | ED Physician Documentation ---
PD HPI ALTERED MENTAL STATUS - Stated complaint Stated Complaint: AMS - History obtained from History obtained from: Patient, EMS - Additional information Additional information: 59-year-old woman with history of alcoholism presents by ambulance for altered mental status. Reportedly for the last 3 days has been just sitting in her chair. She is incontinent of urine. She is a poor historian but admits to shortness of breath, cough, no urinary complaints. She states she has not been drinking and has been sober for quite some time but unable to elaborate on how long that time has been. 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: section - Present Medications Home Medications: Ambulatory Orders Medication Instructions Recorded Confirmed DULoxetine [Cymbalta] 60 mg PO DAILY 10/11/18 11/20/19 busPIRone [Buspar] 15 mg PO BID 10/11/18 11/20/19 traZODone [Desyrel] 150 mg PO QPM 10/11/18 11/20/19 Meloxicam 15 mg PO DAILY 11/20/19 11/20/19 Alendronate [Fosamax] 70 mg PO FR 11/21/19 11/21/19 Famotidine [Pepcid] 20 mg PO BID 11/21/19 11/21/19 Furosemide 40 mg PO DAILY PRN 11/21/19 11/21/19 Metoprolol Succinate [Toprol Xl] 25 mg PO BID 11/21/19 11/21/19 Potassium Chloride 10 meq PO DAILY PRN 11/21/19 11/21/19 SUMAtriptan succinate [Sumatriptan 6 mg SQ ONCE PRN 11/21/19 11/21/19 Succinate] Valacyclovir HCl [Valacyclovir] 500 mg PO BID 11/21/19 11/21/19 Venlafaxine HCl 75 mg PO DAILY 11/21/19 11/21/19 Gabapentin [Neurontin] 300 mg PO TID #30 capsule 11/27/19 Lactulose 10 gm PO TID #1 bottle 11/27/19 Vitamin [Trinatal Rx 1] 1 tab PO DAILYWM #30 tablet 11/27/19 Thiamine [Vitamin B-1] 100 mg PO DAILY #30 tablet 11/27/19 - Allergies Allergies/Adverse Reactions: Allergies Allergy/AdvReac Type Severity Reaction Status Date / Time pregabalin [From Lyrica] Allergy Hives Verified 08/15/19 21:47 adhesive tape AdvReac Rash Verified 08/15/19 21:47 Sulfa (Sulfonamide AdvReac Itching Verified 08/15/19 21:47 Antibiotics) - Social History Does the pt smoke?: No Smoking Status: Never smoker Does the pt drink ETOH?: Yes Does the pt have substance abuse?: No - Immunizations Immunizations are current?: Yes - POLST Patient has POLST: No PD ED PE NORMAL - Vitals Vital signs reviewed: Yes - General General: Other (She alert and oriented to person and place but not well for time or events. Disheveled, incontinent of urine) - HEENT HEENT: Other ([place]point sluggishly reactive pupils with bilateral nystagmus) - Neck Neck: Supple, no meningeal sign, No bony TTP - Cardiac Cardiac: RRR (Mild tachycardia), No murmur - Respiratory Respiratory: Other (Slightly tachypneic, grossly clear lungs.) - Abdomen Abdomen: Soft, Non tender - Back Back: No CVA TTP, No spinal TTP - Derm Derm: Normal color, Warm and dry - Extremities Extremities: No calf tenderness / cord, Other (Mild peripheral edema symmetric) - Neuro Neuro: cook dinner 2-12 intact, No motor deficit, No sensory deficit, Normal speech, Other (No asterixis) Eye Opening: Spontaneous Motor: Obeys Commands Verbal: Confused GCS Score: 14 Results - Vitals Vitals: Vital Signs - 24 hr 02/06/20 02/06/20 02/06/20 13:56 14:06 14:09 Temperature 37 C Heart Rate 115 H Respiratory 16 Rate Blood Pressure 142/79 H O2 Saturation 100 Oxygen O2 Source Room air - Labs Labs: Laboratory Tests 02/06/20 02/06/20 02/06/20 14:37 14:37 14:37 WBC 3.7 L RBC 2.97 L Hgb 11.4 L Hct 34.1 L MCV 114.8 H MCH 38.4 H MCHC 33.4 RDW 13.1 Neut # (Auto) 2.9 Lymph # (Auto) 0.6 L [place] # (Auto) 0.3 Eos # (Auto) 0.0 Baso # (Auto) 0.0 Absolute Nucleated RBC 0.00 Nucleated RBC % 0.0 Platelet Estimate DECREASED (<130,000) Platelet Morphology NORMAL APPEARANCE RBC Morph Micro Appear 2+ ANISOCYTOSIS VBG pH VBG pCO2 VBG pO2 VBG HCO3 VBG Total CO2 VBG O2 Saturation VBG Base Excess Sodium 136 Potassium 3.3 L Chloride 91 L Carbon Dioxide 9 L* Anion Gap 36.0 H BUN 32 H Creatinine 2.3 H Estimated GFR (MDRD) 22 L Glucose 123 H Lactic Acid 1.2 Calcium 8.8 Magnesium 2.3 Total Bilirubin 4.3 H AST 251 H ALT 134 H Alkaline Phosphatase 207 H Ammonia Total Creatine Kinase 529 H Total Protein 7.2 Albumin 4.0 Globulin 3.2 Albumin/Globulin Ratio 1.3 Lipase 960 H Urine Color Urine Clarity Urine pH Ur Specific [place] Urine Protein Urine Glucose (UA) Urine Ketones Urine Occult Blood Urine Nitrite Urine Bilirubin Urine Urobilinogen Ur Leukocyte Esterase Urine RBC Urine WBC Ur Squamous Epith Cells Urine Bacteria Ur Microscopic Review Urine Culture Comments Urine Opiates Screen Ur Oxycodone Screen Urine Methadone Screen Ur Propoxyphene Screen Ur Barbiturates Screen Ur Tricyclics Screen Ur Phencyclidine Scrn Ur Amphetamine Screen U Methamphetamines Scrn U Benzodiazepines Scrn Urine Cocaine Screen U Cannabinoids Screen Ethyl Alcohol < 5.0 Serum Ketones SMALL H 02/06/20 02/06/20 02/06/20 14:37 14:37 14:50 WBC RBC Hgb Hct MCV MCH MCHC RDW Neut # (Auto) Lymph # (Auto) [place] # (Auto) Eos # (Auto) Baso # (Auto) Absolute Nucleated RBC Nucleated RBC % Platelet Estimate Platelet Morphology RBC Morph Micro Appear VBG pH 7.285 L VBG pCO2 17.8 L VBG pO2 46.3 VBG HCO3 8.3 L VBG Total CO2 8.8 L VBG O2 Saturation 79.9 VBG Base Excess -16.1 L Sodium Potassium Chloride Carbon Dioxide Anion Gap BUN Creatinine Estimated GFR (MDRD) Glucose Lactic Acid Calcium Magnesium Total Bilirubin AST ALT Alkaline Phosphatase Ammonia 47.2 H Total Creatine Kinase Total Protein Albumin Globulin Albumin/Globulin Ratio Lipase Urine Color LIGHT YELLOW Urine Clarity HAZY Urine pH 7.0 Ur Specific [place] 1.020 Urine Protein 100 H Urine Glucose (UA) NEGATIVE Urine Ketones >=80 H Urine Occult Blood MODERATE H Urine Nitrite NEGATIVE Urine Bilirubin NEGATIVE Urine Urobilinogen 1 (NORMAL) Ur Leukocyte Esterase TRACE H Urine RBC 0-5 Urine WBC 6-10 H Ur Squamous Epith Cells FEW Squamous Urine Bacteria Many H Ur Microscopic Review INDICATED Urine Culture Comments INDICATED Urine Opiates Screen NEGATIVE Ur Oxycodone Screen NEGATIVE Urine Methadone Screen NEGATIVE Ur Propoxyphene Screen NEGATIVE Ur Barbiturates Screen NEGATIVE Ur Tricyclics Screen NEGATIVE Ur Phencyclidine Scrn NEGATIVE Ur Amphetamine Screen NEGATIVE U Methamphetamines Scrn NEGATIVE U Benzodiazepines Scrn NEGATIVE Urine Cocaine Screen NEGATIVE U Cannabinoids Screen NEGATIVE Ethyl Alcohol Serum Ketones - Rads (name of study) CT Head Radiology: EMP read contemporaneously (Mastoid fluid, otherwise NAD) 1v chest Radiology: EMP read contemporaneously PD MEDICAL DECISION MAKING - ED course ED course: 59-year-old woman presents by ambulance with an encephalopathy. No asterixis. She is definitely confused, disheveled, smells of potential UTI. Straight cath urine confirms same. Also noted to have evidence Of alcoholic ketoacidosis, significant dehydration with acute renal failure, alcoholic hepatitis and pancreatitis. She was resuscitated with IV fluids, some IV potassium, given Rocephin for UTI. Previous cultures reviewed. Departure - Departure Disposition: 66 [facility] DC/Xfer Clinical Impression: Encephalopathy, Alcoholic ketoacidosis Alcoholic hepatitis Qualifiers: Ascites presence: without ascites Qualified Code(s): K70.10 - Alcoholic hepatitis without ascites UTI (urinary tract infection) Qualifiers: Urinary tract infection type: site unspecified Hematuria presence: without hematuria Qualified Code(s): N39.0 - Urinary tract infection, site not specified ARF (acute renal failure) Qualifiers: Acute renal failure type: unspecified Qualified Code(s): N17.9 - Acute kidney failure, unspecified Alcoholic pancreatitis Qualifiers: Chronicity: acute Acute pancreatitis complication: no infection or necrosis Qualified Code(s): K85.20 - Alcohol induced acute pancreatitis without necrosis or infection Condition: Serious
--- NOTE | 2020-02-06 14:31 | XRAY Report ---
PROCEDURE: Chest 1 View X-Ray INDICATIONS: dyspnea TECHNIQUE: One view of the chest was acquired. COMPARISON: 11/24/2019 FINDINGS: Surgical changes and devices: None. Lungs and pleura: Diffuse interstitial prominence. Suggestion of vascular congestion slightly more pr onounced than previous study. No focal consolidation. No pleural effusion. No pneumothorax. Mediastinum: Mediastinal contours appear normal. Heart size is normal. Bones and chest wall: No suspicious bony lesions. Overlying soft tissues appear unremarkable. IMPRESSION: Suggestion of vascular congestion slightly more pronounced than previous study. Diffuse interstitial prominence. Findings may represent early pulmonary edema. No focal consolidation. No pleural effusion . Reviewed by: Kvng Tavarez MD on 02/06/2020 2:30 PM PDT Approved by: Kvng Tavarez MD on 02/06/2020 2:30 PM PDT Station ID: [id number]
--- NOTE | 2020-02-06 14:37 | CT Report ---
PROCEDURE: HEAD WO INDICATIONS: AMS TECHNIQUE: Noncontrast 4.5 mm thick angled axial sections acquired from the foramen magnum to the vertex. For r adiation dose reduction, the following was used: automated exposure control, adjustment of mA and/or kV according to patient size. COMPARISON: 11/20/2019 and 02/26/2019. FINDINGS: Image quality: Study limited by streak artifact from patient's left earring. CSF spaces: Basal cisterns are patent. No extra-axial fluid collections. Ventricles are normal in size and shape. Brain: No midline shift. No intracranial masses or hemorrhage. Herrera-white matter interface is norm al. Skull and face: Calvarium and visualized facial bones are intact, without suspicious lesions. Sinuses: Visualized sinuses and right mastoids are clear. There is opacification of the left mastoid air cells without associated osseous destruction or overlying soft tissue inflammatory change. IMPRESSION: 1. CT head without acute intracranial abnormalities. 2. New opacification of the left mastoid air cells without osseous erosions or overlying soft tissue inflammatory changes. Findings may represent mastoiditis. Reviewed by: Kvng Tavarez MD on 02/06/2020 2:36 PM PDT Approved by: Kvng Tavarez MD on 02/06/2020 2:36 PM PDT Station ID: [id number]
[2020-02-06] MEDS ORDERED: ONDANSETRON 4 MG/2 ML VIAL IVP STA (14:43)
[2020-02-06 14:47] LABS: BASOPHILS % (AUTO) 0.3 %; HGB - HEMOGLOBIN 11.4 g/dL (12.0-16.0); LYMPHOCYTES # (AUTO) 0.6 10^3/uL (1.5-3.5); MEAN CORPUSCULAR HEMOGLOBIN 38.4 pg (27.0-31.0); MEAN CORPUSCULAR HGB CONC 33.4 g/dL (32.0-36.0); MEAN CORPUSCULAR VOLUME 114.8 fL (81.0-99.0); MEAN PLATELET VOLUME 9.7 fL (7.9-10.8); MONOCYTES # (AUTO) 0.3 10^3/uL (0.0-1.0); MONOCYTES % (AUTO) 7.2 %; NEUTROPHILS # (AUTO) 2.9 10^3/uL (1.5-6.6); NEUTROPHILS % (AUTO) 76.7 %; PLT - PLATELET COUNT 49 10^3/uL (130-450); RED BLOOD COUNT 2.97 10^6/uL (4.20-5.40); RED CELL DISTRIBUTION WIDTH 13.1 % (12.0-15.0); WHITE BLOOD COUNT 3.7 x10^3/uL (4.8-10.8)
[2020-02-06 14:48] LABS: VBG BASE EXCESS -16.1 mmol/L (-2 - +2); VBG PCO2 17.8 mmHg (41-51); VBG PH 7.285 (7.31-7.41); VBG PO2 46.3 mmHg (25-47); VBG TOTAL CO2 8.8 mmol/L (24-29)
[2020-02-06 14:53] LABS: MUDS CUTOFF CONCENTRATIONS CUTOFF CONC BELOW:
[2020-02-06 14:55] LABS: KETONES, SERUM (ACETEST) SMALL (NEGATIVE)
[2020-02-06 14:56] LABS: GLUCOSE, URINE (UA) NEGATIVE (NEGATIVE); KETONES,URINE (UA) >=80 mg/dL (NEGATIVE); LEUKOCYTE ESTERASE, URINE TRACE (NEGATIVE); NITRITE,URINE NEGATIVE (NEGATIVE); OCCULT BLOOD,URINE MODERATE (NEGATIVE); PROTEIN,URINE 100 mg/dL (NEGATIVE); UROBILINOGEN,URINE 1 (NORMAL) E.U./dL (NORMAL)
[2020-02-06 15:02] LABS: BILIRUBIN,URINE NEGATIVE (NEGATIVE); CLARITY,URINE HAZY (CLEAR); ICTOTEST,URINE NEGATIVE
[2020-02-06 15:06] LABS: BACTERIA,URINE Many /HPF (None Seen); RBC,URINE 0-5 /HPF (0-5); SQUAMOUS EPITHELIAL CELL,UR FEW Squamous (<= Few)
[2020-02-06 15:07] LABS: AMPHETAMINE SCREEN,URINE NEGATIVE (NEGATIVE); BENZODIAZEPINES SCREEN, URINE NEGATIVE (NEGATIVE); COCAINE SCREEN URINE NEGATIVE (NEGATIVE); METHADONE SCREEN, URINE NEGATIVE (NEGATIVE); METHAMPHETAMINES SCREEN, URINE NEGATIVE (NEGATIVE); OPIATE SCREEN, URINE NEGATIVE (NEGATIVE); OXYCODONE SCREEN, URINE NEGATIVE (NEGATIVE); PROPOXYPHENE SCREEN, URINE NEGATIVE (NEGATIVE); TRICYCLIC ANTIDEPRESSANT,URINE NEGATIVE (NEGATIVE)
[2020-02-06] MEDS ORDERED: SODIUM CHLORIDE 0.9% 1,000 ML IV STA ×2 (15:09)
[2020-02-06 15:16] LABS: ALBUMIN/GLOBULIN RATIO 1.3 (1.0-2.2); ALKALINE PHOSPHATASE 207 IU/L (42-121); ALT ALANINE AMINOTRANSFERASE 134 IU/L (10-60); AST ASPARTATE AMINOTRANSFERASE 251 IU/L (10-42); BILIRUBIN,TOTAL 4.3 mg/dL (0.2-1.0); BUN - BLOOD UREA NITROGEN 32 mg/dL (6-20); CALCIUM 8.8 mg/dL (8.5-10.3); CHLORIDE 91 mmol/L (101-111); CK- CREATINE KINASE 529 IU/L (22-269); CREATININE 2.3 mg/dL (0.4-1.0); GLUCOSE 123 mg/dL (70-100); LIPASE 960 U/L (22-51); MAGNESIUM 2.3 mg/dL (1.7-2.8); PLATELET ESTIMATE, MANUAL DECREASED (<130,000) (NORMAL); PLATELET MORPHOLOGY NORMAL APPEARANCE (NORMAL); RBC MORPHOLOGY (MULTIPLE) 2+ ANISOCYTOSIS (NORMAL); SODIUM 136 mmol/L (135-145); TOTAL PROTEIN 7.2 g/dL (6.7-8.2)
[2020-02-06 15:17] LABS: CARBON DIOXIDE - CO2 9 mmol/L (21-32)
[2020-02-06] MEDS ORDERED: cefTRIAXone 1 GM in SODIUM CHLORIDE 0.9% MINIBAG 100 ML IV STA (15:20)
[2020-02-06] MEDS ORDERED: POTASSIUM CHLOR 10 MEQ/100 ML 10 MEQ/100 ML BAG IV STA (15:20)
--- NOTE | 2020-02-06 16:54 | PHARMACY PROGRESS NOTE ---
- Best Possible Medication History Admit Date and Time: 02/06/20 1556 Processed by: Pharmacy Medication History completed: Yes Patient Interview: Pt unable to participate Secondary Source(s): Physician records, Pharmacy records, Insurance records As the person ultimately responsible for medication therapy, providers are able to order a medication from an existing home medication list in [facility] via the "Reconcile Routine" prior to Confirmation of that medication by child support investigator. Such practice is discouraged except when the physician, in their clinical judgment, deems that a medical need exists for a medication without regard to previous use.
[2020-02-06] MEDS ORDERED: LACTULOSE 10 GM/15 ML BOTTLE PR SCH (17:00)
[2020-02-06] MEDS ORDERED: LACTULOSE 10 GM /15 ML UDC PO SCH ×2 (18:41→22:00)
--- NOTE | 2020-02-06 19:19 | HISTORY & PHYSICAL EXAMINATION ---
Chief Complaint - Chief Complaint Chief Complaint: Altered mental status History of Present Illness - Admitted From Admitted From:: [facility] ED - History Obtained From Records Reviewed: Yes History obtained from: ED physician and notes Exam Limitations: lethargy - History of Present Illness HPI Comment/Other: The account below was obtained from the HPI of the ED physicians H&P because at the time of my visit this patient was somewhat lethargic and not able to provide a reliable history. Patient is a 59-year-old female with history of alcohol abuse who presented to the ED with altered mental status. It was reported that she had been sitting in her chair for the past 3 days. Upon arrival she was noted to be incontinent of urine. She reported that she has not been drinking for some time but did not specify how long. Work-up in the ED included a UA which was indicative of a UTI. She was also found to have a bicarbonate level of 9, lipase 960, CK 520 and elevated liver enzymes. As a result she was presented for admission for further treatment. At bedside she is awake and but somewhat lethargic. She has significant bruise on her left hip. There are other small bruises on the left side. She does not appear to have any respiratory distress. She mainly just stares when asked about pain. There are no focal neurologic deficits. The rest of her history is unremarkable. History - Past Medical History Cardiovascular: reports: High cholesterol Respiratory: reports: None Neuro: reports: None Endocrine/Autoimmune: reports: None GI: reports: None PRODUCT MANAGEMENT INTERN: reports: None : reports: None HEENT: reports: None Psych: reports: Depression Musculoskeletal: reports: Chronic back pain Derm: reports: None MRSA Hx?: No - Past Surgical History Ortho: reports: Spine surgery /PRODUCT MANAGEMENT INTERN: reports: section - Family & Social History Family History Comment/Other: Cannot obtain family history at the moment because of patient's altered mental status. Living arrangement: At home Living Situation: With spouse/s.o. Social History Notes: According to records patient 1 pack of cigarettes weekly. She also drinks heavily. She denies any recreational drug use - POLST Patient has POLST: No POLST Status: Full Code Meds/Allgy - Home Medications Home Medications: Ambulatory Orders Medication Instructions Recorded Confirmed DULoxetine [Cymbalta] 60 mg PO DAILY 10/11/18 02/06/20 busPIRone [Buspar] 15 mg PO BID 10/11/18 02/06/20 traZODone [Desyrel] 150 mg PO QPM 10/11/18 02/06/20 Meloxicam 15 mg PO DAILY 11/20/19 02/06/20 Alendronate [Fosamax] 70 mg PO FR 11/21/19 02/06/20 Famotidine [Pepcid] 20 mg PO BID 11/21/19 02/06/20 Furosemide 40 mg PO DAILY PRN 11/21/19 02/06/20 Metoprolol Succinate [Toprol Xl] 25 mg PO BID 11/21/19 02/06/20 SUMAtriptan succinate [Sumatriptan 6 mg SQ ONCE PRN 11/21/19 02/06/20 Succinate] Venlafaxine HCl 75 mg PO DAILY 11/21/19 02/06/20 Lactulose 10 gm PO TID #1 bottle 11/27/19 02/06/20 Vitamin [Trinatal Rx 1] 1 tab PO DAILYWM #30 tablet 11/27/19 02/06/20 Thiamine [Vitamin B-1] 100 mg PO DAILY #30 tablet 11/27/19 02/06/20 Baclofen 10 mg PO TID 02/06/20 02/06/20 Estrogens, Conjugated Cream 1 applic VG DAILY 02/06/20 02/06/20 [Premarin Cream] Gabapentin [Neurontin] 800 mg PO TID 02/06/20 02/06/20 SUMAtriptan succinate [Sumatriptan 100 mg PO DAILY PRN 02/06/20 02/06/20 Succinate] - Allergies Allergies/Adverse Reactions: Allergies Allergy/AdvReac Type Severity Reaction Status Date / Time pregabalin [From Lyrica] Allergy Hives Verified 08/15/19 21:47 adhesive tape AdvReac Rash Verified 08/15/19 21:47 Sulfa (Sulfonamide AdvReac Itching Verified 08/15/19 21:47 Antibiotics) Review of Systems - Constitutional Constitutional: reports: Fatigue, Weakness. denies: Fever, Chills, Diaphoresis - Eyes Eyes: denies: Pain - Ears, Nose & Throat Ears, Nose & Throat: denies: Ear pain - Cardiovascular Cariovascular: denies: Chest pain - Respiratory Respiratory: denies: Cough, Sputum production, Wheezing, SOB at rest - Gastrointestinal Gastrointestinal: denies: Abdominal pain, Abdominal distention, Nausea, Vomiting - Genitourinary Genitourinary: reports: Incontinence. denies: Dysuria, Frequency, Urgency, Hematuria - Musculoskeletal Musculoskeletal: denies: Muscle pain, Back pain - Integumentary Integumentary: reports: Other (bruises on left hip and side) - Neurological Neurological: reports: General weakness. denies: Focal weakness - Psychiatric Psychiatric: denies: Depression, Anxiety - Endocrine Endocrine: denies: Polyuria, Polydypsia - Hematologic/Lymphatic Hematologic/Lymphatic: reports: Bruising. denies: Anemia, Petechiae Prior Level of Functionality: Patient is usually independent of activities of daily living. Exam - Vital Signs Vital Signs: Vital Signs x48h Temp Pulse Pulse Resp BP BP Pulse Ox 02/06/20 16:54 36.8 C 112 H 20 151/79 H 100 02/06/20 15:49 119 H 18 138/83 H 100 02/06/20 14:09 16 02/06/20 14:06 115 H 100 02/06/20 13:56 37 C 142/79 H - Physical Exam General Appearance: positive: Mild distress, Lethargic Eyes Bilateral: positive: PERRL, EOMI ENT: positive: Dry mucous membranes Neck: positive: No JVD, Trachea midline Respiratory: positive: Chest non-tender, No respiratory distress, Breath sounds nml. negative: Wheezes, Rales, Rhonchi Cardiovascular: positive: Tachycardia Abdomen: positive: Non-tender, No organomegaly, Nml bowel sounds, No distention. negative: Guarding, Rebound Back: positive: Nml inspection Skin: positive: Warm, Dry, Other (bruise on left hip) Extremities: positive: No pedal edema Neurologic/Psychiatric: positive: Oriented x3 Conclusion/Plan - Problem List (1) UTI (urinary tract infection) Conclusion/Plan: Urine culture pending. Patient has had a UTI in the past positive for E. coli. Patient started on Rocephin 1 g IV daily. We will continue Qualifiers: Urinary tract infection type: site unspecified Hematuria presence: without hematuria Qualified Code(s): N39.0 - Urinary tract infection, site not specified (2) ARF (acute renal failure) Conclusion/Plan: Likely multifactorial. Secondary to UTI, medication and/or dehydration. We will hold Lasix, baclofen and meloxicam. Patient receiving IV hydration with normal saline. Anticipating improvement. Will check BMP in the morning. Qualifiers: Acute renal failure type: unspecified Qualified Code(s): N17.9 - Acute kidney failure, unspecified (3) Alcoholic ketoacidosis Conclusion/Plan: Patient receiving IV hydration. We will recheck BMP in the morning. (4) Alcoholic pancreatitis Conclusion/Plan: Lipase was 960. We will trend. Patient receiving IV hydration with normal saline. Qualifiers: Chronicity: acute Acute pancreatitis complication: no infection or necrosis Qualified Code(s): K85.20 - Alcohol induced acute pancreatitis without necrosis or infection (5) Alcoholism Conclusion/Plan: Will order [place] protocol. Patient given thiamine 100 mg in the ED. Multivitamins ordered daily. (6) Metabolic encephalopathy Conclusion/Plan: Patient's ammonia level was 47. Will check in the morning. Will resume lactulose 10 g p.o. TID. We will hold baclofen and meloxicam for now. (7) Elevated liver enzymes Conclusion/Plan: Possibly secondary to alcohol use. Hydrating patient. We will monitor. (8) Depression Conclusion/Plan: Will resume venlafaxine and duloxetine once verified (9) Hypertension Conclusion/Plan: On metoprolol succinate 25 mg p.o. daily. - Lab Results Fish Bones: 02/06/20 14:37 02/06/20 14:37 Core Measures - Anticipated LOS I expect patient to be DC'd or transferred within 96 hours.: Yes - DVT/VTE - Prophylaxis VTE/DVT Device ordered at admit?: Yes
[2020-02-06] MEDS ORDERED: LORazepam 2 MG/ML VIAL IVP PRN (20:33)
[2020-02-06] MEDS: SODIUM CHLORIDE FLUSH 0.9% 10 ML SYRINGE IVP PRN (20:59)
[2020-02-06] MEDS: ONDANSETRON 4 MG/2 ML VIAL IVP PRN (20:59)
[2020-02-06] MEDS: SODIUM CHLORIDE 0.9% 1,000 ML IV SCH (20:59)
[2020-02-06 21:10] LABS: ALBUMIN 3.6 g/dL (3.2-5.5); ALBUMIN/GLOBULIN RATIO 1.2 (1.0-2.2); ALKALINE PHOSPHATASE 181 IU/L (42-121); ALT ALANINE AMINOTRANSFERASE 118 IU/L (10-60); AST ASPARTATE AMINOTRANSFERASE 201 IU/L (10-42); BILIRUBIN,TOTAL 3.7 mg/dL (0.2-1.0); BUN - BLOOD UREA NITROGEN 32 mg/dL (6-20); CALCIUM 8.2 mg/dL (8.5-10.3); CHLORIDE 99 mmol/L (101-111); CREATININE 1.9 mg/dL (0.4-1.0); GLUCOSE 91 mg/dL (70-100); SODIUM 139 mmol/L (135-145); TOTAL PROTEIN 6.7 g/dL (6.7-8.2)
[2020-02-06 21:12] LABS: CARBON DIOXIDE - CO2 < 6 mmol/L (21-32)
[2020-02-06] MEDS ORDERED: LORazepam 2 MG/ML VIAL IVP STA (21:12)
[2020-02-06] MEDS ORDERED: CALCIUM GLUCONATE 1,000 MG in SODIUM CHLORIDE 0.9% 50 ML IV ONE (21:18)
[2020-02-06] MEDS ORDERED: SODIUM BICARBONATE 650 MG TABLET PO STA (21:25)
[2020-02-06] MEDS: POTASSIUM CHLOR 10 MEQ/100 ML 10 MEQ/100 ML BAG IV SCH ×3 (21:34→23:32)
[2020-02-07] MEDS: POTASSIUM CHLOR 10 MEQ/100 ML 10 MEQ/100 ML BAG IV SCH ×7 (00:36→22:47)
[2020-02-07] MEDS: SODIUM CHLORIDE FLUSH 0.9% 10 ML SYRINGE IVP SCH ×3 (01:50→17:09)
[2020-02-07 04:37] LABS: HGB - HEMOGLOBIN 9.4 g/dL (12.0-16.0); LYMPHOCYTES # (AUTO) 0.8 10^3/uL (1.5-3.5); LYMPHOCYTES % (AUTO) 22.4 %; MEAN CORPUSCULAR HEMOGLOBIN 37.8 pg (27.0-31.0); MEAN CORPUSCULAR HGB CONC 32.6 g/dL (32.0-36.0); MEAN CORPUSCULAR VOLUME 115.7 fL (81.0-99.0); MEAN PLATELET VOLUME 10.4 fL (7.9-10.8); MONOCYTES # (AUTO) 0.3 10^3/uL (0.0-1.0); MONOCYTES % (AUTO) 9.3 %; NEUTROPHILS # (AUTO) 2.4 10^3/uL (1.5-6.6); NEUTROPHILS % (AUTO) 67.7 %; PLT - PLATELET COUNT 44 10^3/uL (130-450); RED BLOOD COUNT 2.49 10^6/uL (4.20-5.40); RED CELL DISTRIBUTION WIDTH 13.5 % (12.0-15.0); WHITE BLOOD COUNT 3.5 x10^3/uL (4.8-10.8)
[2020-02-07 05:02] LABS: PLATELET ESTIMATE, MANUAL DECREASED (<130,000) (NORMAL); PLATELET MORPHOLOGY NORMAL APPEARANCE (NORMAL); RBC MORPHOLOGY (MULTIPLE) 2+ MACROCYTOSIS (NORMAL)
[2020-02-07 05:05] LABS: ALBUMIN 3.4 g/dL (3.2-5.5); ALBUMIN/GLOBULIN RATIO 1.2 (1.0-2.2); BILIRUBIN,TOTAL 3.5 mg/dL (0.2-1.0); CALCIUM 8.6 mg/dL (8.5-10.3); CREATININE 1.6 mg/dL (0.4-1.0); MAGNESIUM 2.1 mg/dL (1.7-2.8); TOTAL PROTEIN 6.2 g/dL (6.7-8.2)
[2020-02-07] MEDS: PANTOPRAZOLE 40 MG VIAL IVP SCH (06:57)
[2020-02-07] MEDS: SODIUM CHLORIDE 0.9% 1,000 ML IV SCH ×3 (06:58→21:16)
[2020-02-07] MEDS: SODIUM CHLORIDE FLUSH 0.9% 10 ML SYRINGE IVP PRN ×3 (06:58→12:15)
[2020-02-07] MEDS: ONDANSETRON 4 MG/2 ML VIAL IVP PRN (07:39)
[2020-02-07] MEDS: SODIUM BICARBONATE 650 MG TABLET PO SCH ×3 (07:51→17:49)
[2020-02-07 08:25] LABS: VBG PCO2 16.4 mmHg (41-51); VBG PH 7.245 (7.31-7.41)
[2020-02-07] MEDS: LACTULOSE 10 GM /15 ML UDC PO SCH (08:49)
[2020-02-07] MEDS: METOPROLOL SUCCINATE 25 MG TABLET PO SCH (08:49)
[2020-02-07] MEDS: cefTRIAXone 1 GM in SODIUM CHLORIDE 0.9% MINIBAG 100 ML IV SCH (10:12)
[2020-02-07] MEDS: MULTIVITAMIN 10 ML, FOLIC ACID INJ 1 MG, THIAMINE INJ 100 MG, MAGNESIUM SULFATE 2 GM in... IV SCH ×5 (11:15)
[2020-02-07] MEDS ORDERED: SODIUM BICARBONATE 150 MEQ in DEXTROSE 5% 1,000 ML IV SCH (12:00)
--- NOTE | 2020-02-07 14:37 | PROVIDER PROGRESS NOTE ---
Assessment/Plan - Problem List (1) UTI (urinary tract infection) Qualifiers: Urinary tract infection type: site unspecified Hematuria presence: without hematuria Qualified Code(s): N39.0 - Urinary tract infection, site not specified Assessment/Plan: Urine culture pending. Patient has had a UTI in the past positive for E. coli. Patient started on Rocephin 1 g IV daily. We will continue Await cx results (2) Metabolic acidosis, increased anion gap Assessment/Plan: The etiology of this is unclear, possibly starvation ketosis, possibly alcoholic ketoacidosis. Oral potassium 4 times daily for just today was ordered by the remote sensing specialist. We will give 3 A of bicarb and D5 IV slow drip today. Follow VBG and electrolytes/BMP closely. (3) Metabolic encephalopathy Assessment/Plan: This is likely multifactorial: From her metabolic acidosis, UTI infection, dehydration, elevated ammonia level from liver cirrhosis. Continue supportive care for all the above. She is not alert enough to advance her diet, continue with clear liquid diet. Patient's ammonia level was 47. Continue lactulose 10 g p.o. TID. Follow ammonia level daily. Avoid sedatives. Her IV is a banana bag which contains thiamine. (4) Diarrhea Assessment/Plan: This may be related to restarting Lactulose that she may not have been taken at home or from an infectious etiology. Will orders C. difficile PCR and stool cultures. Continue IV fluids. Follow electrolytes. Titrate lactulose to 2-3 soft BMs daily. (5) Hypokalemia Assessment/Plan: Likely from poor nutrition and now losses in diarrhea. Will replace p.o. or IV. Follow BMP daily. (6) RYAN (acute kidney injury) Assessment/Plan: Likely multifactorial: Secondary to UTI, medication and/or dehydration. We will hold Lasix, baclofen and meloxicam. Patient receiving IV hydration with normal saline. Anticipating improvement. Will check BMP idaily. (7) Alcoholic ketoacidosis Assessment/Plan: Patient receiving IV hydration. We will follow BMP and pH by VBG (8) Alcoholic pancreatitis Qualifiers: Chronicity: acute Acute pancreatitis complication: no infection or necrosis Qualified Code(s): K85.20 - Alcohol induced acute pancreatitis without necrosis or infection Assessment/Plan: Lipase was 960. We will trend Lipase Patient receiving IV hydration with normal saline. She is not requesting additional pain meds. (9) Alcoholism Assessment/Plan: There was no alcohol present on toxicology screen, and she did say that she stopped drinking alcohol about 3 days ago. Plts are low at 44. No INR was done. She is on a CIWA protocol, watching for alcohol withdrawal which could happen right about now. Patient given thiamine 100 mg in the ED. Multivitamins ordered daily. Her IV is a banana bag which contains thiamine. Will get an INR result. (10) Alcoholic hepatitis Qualifiers: Ascites presence: without ascites Qualified Code(s): K70.10 - Alcoholic hepatitis without ascites Assessment/Plan: Elevated LFTs are possibly secondary to alcohol use. Hydrating patient. We will monitor LFTs daily. (11) Anemia Assessment/Plan: Notably from poor nutritional intake. We will check B12, folate levels and iron stores and replace if low (12) Depression Assessment/Plan: Will resume venlafaxine and duloxetine once verified (13) Hx of essential hypertension Assessment/Plan: On metoprolol succinate 25 mg p.o. daily, to continue. - Current Meds Current Meds: Current Medications Generic Name Dose Route Start Last Admin Trade Name Freq PRN Reason Stop Dose Admin Ceftriaxone Sodium 1 gm/ 100 mls @ 200 mls/hr 02/07/20 09:00 02/07/20 10:45 Sodium Chloride IV Infused DAILY ENDER Infusion Multivitamins 10 ml/ Folic 1,015.2 mls @ 100 mls/hr 02/07/20 09:00 02/07/20 11:15 Acid 1 mg/ Thiamine HCl 100 mg IV 100 mls/hr / Magnesium Sulfate 2 gm/ DAILY ENDER Administration Sodium Chloride Sodium Chloride 1,000 mls @ 125 mls/hr 02/06/20 21:00 02/07/20 12:20 Normal Saline 0.9% IV Not Given .Q8H ENDER Sodium Bicarbonate 150 meq/ 1,150 mls @ 100 mls/hr 02/07/20 12:00 02/07/20 12:14 Dextrose IV 02/07/20 23:29 100 mls/hr .[id number] ENDER Administration Lactulose 10 gm 02/07/20 09:00 02/07/20 08:49 Enulose PO 10 gm DAILY ENDER Administration Metoprolol Succinate 25 mg 02/07/20 09:00 02/07/20 08:49 Toprol Xl PO 25 mg DAILY ENDER Administration Ondansetron HCl 4 mg 02/06/20 20:23 02/07/20 07:39 Zofran Inj IVP 4 mg Q4HR PRN Administration Nausea / Vomiting Pantoprazole Sodium 40 mg 02/07/20 07:00 02/07/20 06:57 Protonix IVP 40 mg QDAC ENDER Administration Sodium Bicarbonate 650 mg 02/07/20 07:00 02/07/20 11:32 Sodium Bicarbonate PO 02/08/20 00:01 650 mg Q6HR ENDER Administration Sodium Chloride 10 ml 02/06/20 20:23 02/07/20 12:15 Normal Saline Flush 0.9% IVP 10 ml PRN PRN Administration NEEDED PER PROVIDER ORDERS Sodium Chloride 10 ml 02/07/20 01:00 02/07/20 07:39 Normal Saline Flush 0.9% IVP 10 ml 0100,0900,1700 ENDER Administration - Lab Result Fish Bone Diagrams: 02/07/20 04:15 02/07/20 04:15 - Additional Planning My Orders: My Active Orders 02/06/20 16:49 Vital Signs [RC] Q4HR 02/06/20 16:51 Code Status [OTHERS] Routine 02/07/20 Breakfast DIET [Clear Liquid Diet] [DIET] 02/07/20 09:00 Multivitamin [Infuvite] 10 ml Folic Acid Inj 1 mg Thiamine Inj [Vitamin B-1 Inj] 100 mg Magnesium Sulfate 2 gm Sodium Chloride 0.9% [Normal Saline 0.9%] 1,000 ml IV DAILY cefTRIAXone [Rocephin] 1 gm Sodium Chloride 0.9% Minibag [Normal Saline 0.9% Minibag] 100 ml IV DAILY 02/07/20 12:00 Dextrose 5% [D5w] 1,000 ml Sodium Bicarbonate 150 meq IV 100 mls/hr Subjective - Subjective Nursing Reports: Other (She only wanted part of her clear liquid breakfast) Objective Vital Signs: Vital Signs - 24 hr 02/06/20 02/06/20 02/06/20 15:49 16:54 21:00 Temperature 36.8 C 37.2 C Heart Rate 119 H Heart Rate [ 112 H 118 H Brachial] Respiratory 18 20 30 H Rate Blood Pressure 138/83 H Blood Pressure [Left Brachial artery] Blood Pressure 151/79 H 103/75 [Right Brachial artery] O2 Saturation 100 100 97 02/06/20 02/07/20 02/07/20 23:25 01:00 04:30 Temperature 37.4 C 37.1 C 37.2 C Heart Rate Heart Rate [ 117 H 117 H Brachial] Respiratory 20 22 Rate Blood Pressure Blood Pressure [Left Brachial artery] Blood Pressure 120/74 152/75 H [Right Brachial artery] O2 Saturation 99 100 02/07/20 02/07/20 07:43 12:41 Temperature 37.2 C 37.3 C Heart Rate Heart Rate [ 109 H 99 Brachial] Respiratory 24 24 Rate Blood Pressure Blood Pressure 147/92 H [Left Brachial artery] Blood Pressure 127/68 [Right Brachial artery] O2 Saturation 98 98 Oxygen O2 Source Room air I&O (Last 24 Hrs): Intake and Output Totals x24h 02/05/20 02/06/20 02/07/20 23:59 23:59 23:59 Intake Total 2504.333 2159.000 Output Total 200 Balance 2504.333 1959.000 General: Other (Somnolent. Tachypneic.) HEENT: Other (Dry mucosa) Neck: Supple Neuro: Disoriented, Other (Somnolent) Cardiovascular: Regular rate Respiratory: No respiratory distress Abdomen: Soft Extremities: No edema - Results Results: Laboratory Results WBC 3.5 x10^3/uL (4.8-10.8) L 02/07/20 04:15 RBC 2.49 10^6/uL (4.20-5.40) L 02/07/20 04:15 Hgb 9.4 g/dL (12.0-16.0) L 02/07/20 04:15 Hct 28.8 % (37.0-47.0) L 02/07/20 04:15 MCV 115.7 fL (81.0-99.0) H 02/07/20 04:15 MCH 37.8 pg (27.0-31.0) H 02/07/20 04:15 MCHC 32.6 g/dL (32.0-36.0) 02/07/20 04:15 RDW 13.5 % (12.0-15.0) 02/07/20 04:15 Plt Count 44 10^3/uL (130-450) L 02/07/20 04:15 MPV 10.4 fL (7.9-10.8) 02/07/20 04:15 Neut # (Auto) 2.4 10^3/uL (1.5-6.6) 02/07/20 04:15 Lymph # (Auto) 0.8 10^3/uL (1.5-3.5) L 02/07/20 04:15 [place] # (Auto) 0.3 10^3/uL (0.0-1.0) 02/07/20 04:15 Eos # (Auto) 0.0 10^3/uL (0.0-0.7) 02/07/20 04:15 Baso # (Auto) 0.0 10^3/uL (0.0-0.1) 02/07/20 04:15 Absolute Nucleated RBC 0.00 x10^3/uL 02/07/20 04:15 Nucleated RBC % 0.0 /100WBC 02/07/20 04:15 Manual Slide Review Indicated 02/07/20 04:15 WBC Morphology NORMAL APPEARANCE (NORMAL) 02/07/20 04:15 Platelet Estimate DECREASED (<130,000) (NORMAL) 02/07/20 04:15 Platelet Morphology NORMAL APPEARANCE (NORMAL) 02/07/20 04:15 RBC Morph Micro Appear 2+ MACROCYTOSIS (NORMAL) 02/07/20 04:15 VBG pH 7.245 (7.31-7.41) L 02/07/20 07:50 VBG pCO2 16.4 mmHg (41-51) L 02/07/20 07:50 VBG pO2 67.0 mmHg (25-47) H 02/07/20 07:50 VBG HCO3 7.1 mmol/L (23-28) L 02/07/20 07:50 VBG Total CO2 8.0 mmol/L (24-29) L 02/07/20 07:50 VBG O2 Saturation 90.0 % (60-80) H 02/07/20 07:50 VBG Base Excess -20.0 mmol/L (-2 - +2) L 02/07/20 07:50 Sodium 140 mmol/L (135-145) 02/07/20 04:15 Potassium 3.1 mmol/L (3.5-5.0) L 02/07/20 04:15 Chloride 103 mmol/L (101-111) 02/07/20 04:15 Carbon Dioxide 8 mmol/L (21-32) L* 02/07/20 04:15 Anion Gap 29.0 (6-13) H 02/07/20 04:15 BUN 30 mg/dL (6-20) H 02/07/20 04:15 Creatinine 1.6 mg/dL (0.4-1.0) H 02/07/20 04:15 Estimated GFR (MDRD) 33 (>89) L 02/07/20 04:15 Glucose 93 mg/dL (70-100) 02/07/20 04:15 Lactic Acid 0.7 mmol/L (0.5-2.2) 02/07/20 07:05 Calcium 8.6 mg/dL (8.5-10.3) 02/07/20 04:15 Magnesium 2.1 mg/dL (1.7-2.8) 02/07/20 04:15 Total Bilirubin 3.5 mg/dL (0.2-1.0) H 02/07/20 04:15 AST 164 IU/L (10-42) H 02/07/20 04:15 ALT 102 IU/L (10-60) H 02/07/20 04:15 Alkaline Phosphatase 163 IU/L (42-121) H 02/07/20 04:15 Ammonia 34.4 umol/L (7-35) 02/07/20 04:15 Total Creatine Kinase 319 IU/L (22-269) H 02/07/20 04:15 Total Protein 6.2 g/dL (6.7-8.2) L 02/07/20 04:15 Albumin 3.4 g/dL (3.2-5.5) 02/07/20 04:15 Globulin 2.8 g/dL (2.1-4.2) 02/07/20 04:15 Albumin/Globulin Ratio 1.2 (1.0-2.2) 02/07/20 04:15 Lipase 804 U/L (22-51) H 02/07/20 04:15 Urine Color LIGHT YELLOW 02/06/20 14:50 Urine Clarity HAZY (CLEAR) 02/06/20 14:50 Urine pH 7.0 PH (5.0-7.5) 02/06/20 14:50 Ur Specific [place] 1.020 (1.002-1.030) 02/06/20 14:50 Urine Protein 100 mg/dL (NEGATIVE) H 02/06/20 14:50 Urine Glucose (UA) NEGATIVE mg/dL (NEGATIVE) 02/06/20 14:50 Urine Ketones >=80 mg/dL (NEGATIVE) H 02/06/20 14:50 Urine Occult Blood MODERATE (NEGATIVE) H 02/06/20 14:50 Urine Nitrite NEGATIVE (NEGATIVE) 02/06/20 14:50 Urine Bilirubin NEGATIVE (NEGATIVE) 02/06/20 14:50 Urine Urobilinogen 1 (NORMAL) E.U./dL (NORMAL) 02/06/20 14:50 Ur Leukocyte Esterase TRACE (NEGATIVE) H 02/06/20 14:50 Urine RBC 0-5 /HPF (0-5) 02/06/20 14:50 Urine WBC 6-10 /HPF (0-5) H 02/06/20 14:50 Ur Squamous Epith Cells FEW Squamous (<= Few) 02/06/20 14:50 Urine Bacteria Many /HPF (None Seen) H 02/06/20 14:50 Ur Microscopic Review INDICATED 02/06/20 14:50 Urine Culture Comments INDICATED 02/06/20 14:50 Urine Opiates Screen NEGATIVE (NEGATIVE) 02/06/20 14:50 Ur Oxycodone Screen NEGATIVE (NEGATIVE) 02/06/20 14:50 Urine Methadone Screen NEGATIVE (NEGATIVE) 02/06/20 14:50 Ur Propoxyphene Screen NEGATIVE (NEGATIVE) 02/06/20 14:50 Ur Barbiturates Screen NEGATIVE (NEGATIVE) 02/06/20 14:50 Ur Tricyclics Screen NEGATIVE (NEGATIVE) 02/06/20 14:50 Ur Phencyclidine Scrn NEGATIVE (NEGATIVE) 02/06/20 14:50 Ur Amphetamine Screen NEGATIVE (NEGATIVE) 02/06/20 14:50 U Methamphetamines Scrn NEGATIVE (NEGATIVE) 02/06/20 14:50 U Benzodiazepines Scrn NEGATIVE (NEGATIVE) 02/06/20 14:50 Urine Cocaine Screen NEGATIVE (NEGATIVE) 02/06/20 14:50 U Cannabinoids Screen NEGATIVE (NEGATIVE) 02/06/20 14:50 Ethyl Alcohol < 5.0 mg/dL 02/06/20 14:37 Serum Ketones SMALL (NEGATIVE) H 02/06/20 14:37 - Procedures Procedures: Procedures TRANSFUSE NONAUT RED BLOOD CELLS IN PERIPH VEIN, PERC (11/20/19)
[2020-02-07 18:26] LABS: VBG PCO2 27.7 mmHg (41-51); VBG PH 7.34 (7.31-7.41)
[2020-02-07 18:27] LABS: VBG BASE EXCESS -9.9 mmol/L (-2 - +2); VBG PO2 37.5 mmHg (25-47); VBG TOTAL CO2 15.5 mmol/L (24-29)
[2020-02-07 18:32] LABS: CALCIUM 8.3 mg/dL (8.5-10.3); CREATININE 1.1 mg/dL (0.4-1.0)
[2020-02-07 18:34] LABS: INR 1.1 (0.8-1.2); PT - PROTHROMBIN TIME 12.4 secs (9.9-12.6)
[2020-02-07] MEDS: VANCOMYCIN 125 MG CAPSULE PO SCH (20:30)
[2020-02-08] MEDS: POTASSIUM CHLOR 10 MEQ/100 ML 10 MEQ/100 ML BAG IV SCH ×12 (00:10→23:02)
[2020-02-08] MEDS: PHENAZOPYRIDINE 100 MG TABLET PO SCH ×4 (00:17→21:36)
[2020-02-08] MEDS: SODIUM CHLORIDE FLUSH 0.9% 10 ML SYRINGE IVP SCH ×3 (00:23→15:53)
[2020-02-08] MEDS: SODIUM BICARBONATE 650 MG TABLET PO SCH (00:23)
[2020-02-08] MEDS ORDERED: MIN OIL/DIMETHICON/COCONUT OIL 92 GM TUBE TOP PRN (03:45)
[2020-02-08] MEDS: BENZOCAINE/MENTHOL LOZENGE MM PRN ×3 (03:59→08:48)
[2020-02-08] MEDS: SODIUM CHLORIDE 0.9% 1,000 ML IV SCH (05:17)
[2020-02-08 05:34] LABS: BASOPHILS % (AUTO) 0.5 %; EOSINOPHILS % (AUTO) 0.9 %; HGB - HEMOGLOBIN 8.7 g/dL (12.0-16.0); LYMPHOCYTES # (AUTO) 0.7 10^3/uL (1.5-3.5); LYMPHOCYTES % (AUTO) 29.7 %; MEAN CORPUSCULAR HEMOGLOBIN 36.9 pg (27.0-31.0); MEAN CORPUSCULAR HGB CONC 32.3 g/dL (32.0-36.0); MEAN PLATELET VOLUME 10.1 fL (7.9-10.8); MONOCYTES # (AUTO) 0.3 10^3/uL (0.0-1.0); MONOCYTES % (AUTO) 13.1 %; NEUTROPHILS # (AUTO) 1.2 10^3/uL (1.5-6.6); NEUTROPHILS % (AUTO) 55.3 %; PLT - PLATELET COUNT 41 10^3/uL (130-450); RED BLOOD COUNT 2.36 10^6/uL (4.20-5.40); RED CELL DISTRIBUTION WIDTH 13.6 % (12.0-15.0); WHITE BLOOD COUNT 2.2 x10^3/uL (4.8-10.8)
[2020-02-08 05:49] LABS: ALBUMIN/GLOBULIN RATIO 1.2 (1.0-2.2); BILIRUBIN,TOTAL 1.6 mg/dL (0.2-1.0); CALCIUM 8.3 mg/dL (8.5-10.3); CREATININE 0.6 mg/dL (0.4-1.0); TOTAL PROTEIN 5.6 g/dL (6.7-8.2)
[2020-02-08 05:57] LABS: PLATELET ESTIMATE, MANUAL DECREASED (<130,000) (NORMAL); PLATELET MORPHOLOGY NORMAL APPEARANCE (NORMAL); RBC MORPHOLOGY (MULTIPLE) 2+ MACROCYTOSIS (NORMAL)
[2020-02-08] MEDS: PANTOPRAZOLE 40 MG VIAL IVP SCH (06:49)
[2020-02-08] MEDS: SODIUM CHLORIDE FLUSH 0.9% 10 ML SYRINGE IVP PRN (06:50)
[2020-02-08] MEDS: cefTRIAXone 1 GM in SODIUM CHLORIDE 0.9% MINIBAG 100 ML IV SCH (08:44)
[2020-02-08] MEDS: LACTULOSE 10 GM /15 ML UDC PO SCH (08:46)
[2020-02-08] MEDS: MULTIVITAMIN 10 ML, FOLIC ACID INJ 1 MG, THIAMINE INJ 100 MG, MAGNESIUM SULFATE 2 GM in... IV SCH ×5 (08:46)
[2020-02-08] MEDS: METOPROLOL SUCCINATE 25 MG TABLET PO SCH (08:48)
[2020-02-08] MEDS: VANCOMYCIN 125 MG CAPSULE PO SCH ×4 (08:48→21:36)
[2020-02-08] MEDS ORDERED: IPRATROPIUM/ALBUTEROL 3 ML NEB INH PRN (10:31)
[2020-02-08] MEDS ORDERED: SODIUM CHLORIDE 0.9% 1,000 ML IV SCH (11:28)
[2020-02-08] MEDS ORDERED: FUROSEMIDE 20 MG/2 ML VIAL IVP STA (11:29)
[2020-02-08] MEDS ORDERED: FUROSEMIDE 20 MG/2 ML VIAL IVP SCH (12:00)
[2020-02-08 18:45] LABS: VBG PH 7.485 (7.31-7.41)
[2020-02-08 18:46] LABS: VBG BASE EXCESS 1.2 mmol/L (-2 - +2); VBG PCO2 33.1 mmHg (41-51); VBG PO2 51.7 mmHg (25-47); VBG TOTAL CO2 25.4 mmol/L (24-29)
[2020-02-08 18:56] LABS: CREATININE 0.5 mg/dL (0.4-1.0)
--- NOTE | 2020-02-08 19:29 | PROVIDER PROGRESS NOTE ---
Assessment/Plan - Problem List (1) UTI (urinary tract infection) Qualifiers: Urinary tract infection type: site unspecified Hematuria presence: without hematuria Qualified Code(s): N39.0 - Urinary tract infection, site not specified Assessment/Plan: She was started on empiric antibiotics. Await culture and sensitivity (2) Metabolic acidosis, increased anion gap Assessment/Plan: This was presumably alcoholic ketoacidosis. She had a low pH for 2 days. She needed oral bicarb started and was on D5 with 3 A of bicarb yesterday. The pH then corrected itself. Follow her BMP, pH later today again (3) Metabolic encephalopathy Assessment/Plan: This patient was staring off into space at admission, would answer some questions with sentences but would fall back asleep. Today she is more alert and communicative. Continue treatment for the infection, dehydration and acidosis. Follow her ammonia level, lactulose can be titrated for 2-3 soft bowel movements. (4) Diarrhea Qualifiers: Diarrhea type: infectious Qualified Code(s): A09 - Infectious gastroenteritis and colitis, unspecified Assessment/Plan: Her C. difficile in stool was positive. She is on contact precautions. Vanco p.o. has been started (5) Hypokalemia Assessment/Plan: Related to GI losses. Replace. Follow BMP daily (6) RYAN (acute kidney injury) Assessment/Plan: This is improving with IV hydration for the past 2 days Avoid nephrotoxins. Follow BMP daily (7) Alcoholic ketoacidosis Assessment/Plan: This was her presumed reason for metabolic acidosis. (8) Alcoholic pancreatitis Qualifiers: Chronicity: acute Acute pancreatitis complication: no infection or necrosis Qualified Code(s): K85.20 - Alcohol induced acute pancreatitis without necrosis or infection Assessment/Plan: She is only getting clear liquids, bowel rest for her pancreatitis. Follow lipase daily. Give pain meds as needed (9) Alcoholism Assessment/Plan: She has had presentations in the past with alcohol abuse. Apparently she had no alcohol intake for 3 days before this hospitalization, she came in with no alcohol in her serum toxicology screen. She has not gone through alcohol withdrawal therefore this hospitalization She will need social work consult when she is medically stable. Banana bag with thiamine has been ordered. Ammonia level daily, lactulose has been ordered (10) Alcoholic hepatitis Qualifiers: Ascites presence: without ascites Qualified Code(s): K70.10 - Alcoholic hepatitis without ascites Assessment/Plan: The LFTs are improving as she has abstinence from alcohol. (11) Thrombocytopenia Assessment/Plan: Likely from her alcohol abuse. Follow CBC daily (12) Anemia Assessment/Plan: This is likely from poor nutrition. We will check B12, folate levels and iron stores and replace if low (13) Depression Assessment/Plan: Now that she is alert, will resume her meds for depression (14) Hx of essential hypertension Assessment/Plan: Her blood pressure was "soft" her BP meds are on hold - Current Meds Current Meds: Current Medications Generic Name Dose Route Start Last Admin Trade Name Freq PRN Reason Stop Dose Admin Ceftriaxone Sodium 1 gm/ 100 mls @ 200 mls/hr 02/07/20 09:00 02/08/20 10:06 Sodium Chloride IV 02/11/20 09:29 Infused DAILY ENDER Infusion Sodium Chloride 1,000 mls @ 0 mls/hr 02/08/20 11:28 02/08/20 12:18 Normal Saline 0.9% IV 30 mls/hr .Q0M ENDER Administration TKO Lactulose 10 gm 02/07/20 09:00 02/08/20 08:46 Enulose PO 10 gm DAILY ENDER Administration Metoprolol Succinate 25 mg 02/07/20 09:00 02/08/20 08:48 Toprol Xl PO 25 mg DAILY ENDER Administration Ondansetron HCl 4 mg 02/06/20 20:23 02/07/20 07:39 Zofran Inj IVP 4 mg Q4HR PRN Administration Nausea / Vomiting Pantoprazole Sodium 40 mg 02/07/20 07:00 02/08/20 06:49 Protonix IVP 40 mg QDAC ENDER Administration Phenazopyridine HCl 100 mg 02/08/20 01:00 02/08/20 14:15 Pyridium PO 02/10/20 14:01 100 mg TID ENDER Administration Sodium Chloride 10 ml 02/06/20 20:23 02/08/20 06:50 Normal Saline Flush 0.9% IVP 10 ml PRN PRN Administration NEEDED PER PROVIDER ORDERS Sodium Chloride 10 ml 02/07/20 01:00 02/08/20 15:53 Normal Saline Flush 0.9% IVP Not Given 0100,0900,1700 ENDER Throat Lozenges 1 lozenge 02/08/20 03:47 02/08/20 08:48 Cepacol MM 1 lozenge Q2HR PRN Administration Throat pain Vancomycin HCl 125 mg 02/07/20 21:00 02/08/20 17:09 Vancocin PO 125 mg QID ENDER Administration - Lab Result Fish Bone Diagrams: 02/08/20 05:25 02/08/20 18:40 - Additional Planning My Orders: My Active Orders 02/08/20 03:45 Min Oil/Dimeth/Coconut Oil Crm [Cavilon] 1 applic TOP PRN PRN 02/08/20 03:47 Benzocaine/Menthol [Cepacol] 1 lozenge MM Q2HR PRN 02/08/20 10:31 Ipratropium/Albuterol [Duoneb] 3 ml INH Q4HR PRN Sucralfate [Carafate] 1 gm PO 0700,1100,1600,2200 PRN 02/08/20 11:00 RT [Nebulizer/MDI Tx.] [RC] .PRN 02/08/20 11:28 Sodium Chloride 0.9% [Normal Saline 0.9%] 1,000 ml IV TKO 02/09/20 09:00 Multivitamin [Infuvite] 10 ml Folic Acid Inj 1 mg Thiamine Inj [Vitamin B-1 Inj] 100 mg Magnesium Sulfate 2 gm Sodium Chloride 0.9% [Normal Saline 0.9%] 1,000 ml IV DAILY Subjective - Subjective Patient Reports: Resting Comfortably, No Complaints Objective Vital Signs: Vital Signs - 24 hr 02/07/20 02/07/20 02/08/20 22:33 23:22 04:35 Temperature 37.2 C 37.6 C H 36.9 C Heart Rate Heart Rate [ 97 100 100 Brachial] Respiratory 20 20 20 Rate Blood Pressure 121/61 [Left Brachial artery] Blood Pressure 121/61 119/65 125/63 [Right Brachial artery] O2 Saturation 99 100 100 02/08/20 02/08/20 02/08/20 08:30 11:30 11:45 Temperature 36.8 C 37.0 C Heart Rate 79 Heart Rate [ 89 88 Brachial] Respiratory 18 18 16 Rate Blood Pressure [Left Brachial artery] Blood Pressure 140/76 H 134/68 H [Right Brachial artery] O2 Saturation 99 97 02/08/20 02/08/20 15:50 16:11 Temperature 36.3 C L Heart Rate 84 Heart Rate [ 90 Brachial] Respiratory 18 18 Rate Blood Pressure [Left Brachial artery] Blood Pressure 128/63 [Right Brachial artery] O2 Saturation 100 Oxygen O2 Source Room air I&O (Last 24 Hrs): Intake and Output Totals x24h 02/06/20 02/07/20 02/08/20 23:59 23:59 23:59 Intake Total 2504.333 5784.200 7274.37 Output Total 200 Balance 2504.333 5584.200 7274.37 General: Alert, Other (Slow movements are noted) HEENT: Mucous membr. moist/pink Neck: Supple Neuro: Alert, Non Focal, Other (She is very bradykinetic.) Cardiovascular: Regular rate Respiratory: No respiratory distress Abdomen: No tenderness Extremities: No edema - Results Results: Laboratory Results WBC 2.2 x10^3/uL (4.8-10.8) L 02/08/20 05:25 RBC 2.36 10^6/uL (4.20-5.40) L 02/08/20 05:25 Hgb 8.7 g/dL (12.0-16.0) L 02/08/20 05:25 Hct 26.9 % (37.0-47.0) L 02/08/20 05:25 MCV 114.0 fL (81.0-99.0) H 02/08/20 05:25 MCH 36.9 pg (27.0-31.0) H 02/08/20 05:25 MCHC 32.3 g/dL (32.0-36.0) 02/08/20 05:25 RDW 13.6 % (12.0-15.0) 02/08/20 05:25 Plt Count 41 10^3/uL (130-450) L 02/08/20 05:25 MPV 10.1 fL (7.9-10.8) 02/08/20 05:25 Neut # (Auto) 1.2 10^3/uL (1.5-6.6) L 02/08/20 05:25 Lymph # (Auto) 0.7 10^3/uL (1.5-3.5) L 02/08/20 05:25 [place] # (Auto) 0.3 10^3/uL (0.0-1.0) 02/08/20 05:25 Eos # (Auto) 0.0 10^3/uL (0.0-0.7) 02/08/20 05:25 Baso # (Auto) 0.0 10^3/uL (0.0-0.1) 02/08/20 05:25 Absolute Nucleated RBC 0.00 x10^3/uL 02/08/20 05:25 Nucleated RBC % 0.0 /100WBC 02/08/20 05:25 Manual Slide Review Indicated 02/08/20 05:25 WBC Morphology NORMAL APPEARANCE (NORMAL) 02/07/20 04:15 Platelet Estimate DECREASED (<130,000) (NORMAL) 02/08/20 05:25 Platelet Morphology NORMAL APPEARANCE (NORMAL) 02/08/20 05:25 RBC Morph Micro Appear 2+ MACROCYTOSIS (NORMAL) 02/08/20 05:25 PT 12.4 secs (9.9-12.6) 02/07/20 18:17 INR 1.1 (0.8-1.2) 02/07/20 18:17 VBG pH 7.485 (7.31-7.41) H 02/08/20 18:40 VBG pCO2 33.1 mmHg (41-51) L 02/08/20 18:40 VBG pO2 51.7 mmHg (25-47) H 02/08/20 18:40 VBG HCO3 24.4 mmol/L (23-28) 02/08/20 18:40 VBG Total CO2 25.4 mmol/L (24-29) 02/08/20 18:40 VBG O2 Saturation 91.0 % (60-80) H 02/08/20 18:40 VBG Base Excess 1.2 mmol/L (-2 - +2) 02/08/20 18:40 Sodium 141 mmol/L (135-145) 02/08/20 18:40 Potassium 2.7 mmol/L (3.5-5.0) L 02/08/20 18:40 Chloride 103 mmol/L (101-111) 02/08/20 18:40 Carbon Dioxide 24 mmol/L (21-32) 02/08/20 18:40 Anion Gap 14.0 (6-13) H 02/08/20 18:40 BUN 5 mg/dL (6-20) L 02/08/20 18:40 Creatinine 0.5 mg/dL (0.4-1.0) 02/08/20 18:40 Estimated GFR (MDRD) 127 (>89) 02/08/20 18:40 Glucose 145 mg/dL (70-100) H 02/08/20 18:40 Lactic Acid 0.7 mmol/L (0.5-2.2) 02/07/20 07:05 Calcium 8.0 mg/dL (8.5-10.3) L 02/08/20 18:40 Magnesium 2.0 mg/dL (1.7-2.8) 02/08/20 05:25 Total Bilirubin 1.6 mg/dL (0.2-1.0) H 02/08/20 05:25 AST 98 IU/L (10-42) H 02/08/20 05:25 ALT 86 IU/L (10-60) H 02/08/20 05:25 Alkaline Phosphatase 158 IU/L (42-121) H 02/08/20 05:25 Ammonia 54.5 umol/L (7-35) H 02/08/20 05:25 Total Creatine Kinase 203 IU/L (22-269) 02/08/20 05:25 Total Protein 5.6 g/dL (6.7-8.2) L 02/08/20 05:25 Albumin 3.0 g/dL (3.2-5.5) L 02/08/20 05:25 Globulin 2.6 g/dL (2.1-4.2) 02/08/20 05:25 Albumin/Globulin Ratio 1.2 (1.0-2.2) 02/08/20 05:25 Lipase 760 U/L (22-51) H 02/08/20 05:25 Urine Color LIGHT YELLOW 02/06/20 14:50 Urine Clarity HAZY (CLEAR) 02/06/20 14:50 Urine pH 7.0 PH (5.0-7.5) 02/06/20 14:50 Ur Specific [place] 1.020 (1.002-1.030) 02/06/20 14:50 Urine Protein 100 mg/dL (NEGATIVE) H 02/06/20 14:50 Urine Glucose (UA) NEGATIVE mg/dL (NEGATIVE) 02/06/20 14:50 Urine Ketones >=80 mg/dL (NEGATIVE) H 02/06/20 14:50 Urine Occult Blood MODERATE (NEGATIVE) H 02/06/20 14:50 Urine Nitrite NEGATIVE (NEGATIVE) 02/06/20 14:50 Urine Bilirubin NEGATIVE (NEGATIVE) 02/06/20 14:50 Urine Urobilinogen 1 (NORMAL) E.U./dL (NORMAL) 02/06/20 14:50 Ur Leukocyte Esterase TRACE (NEGATIVE) H 02/06/20 14:50 Urine RBC 0-5 /HPF (0-5) 02/06/20 14:50 Urine WBC 6-10 /HPF (0-5) H 02/06/20 14:50 Ur Squamous Epith Cells FEW Squamous (<= Few) 02/06/20 14:50 Urine Bacteria Many /HPF (None Seen) H 02/06/20 14:50 Ur Microscopic Review INDICATED 02/06/20 14:50 Urine Culture Comments INDICATED 02/06/20 14:50 Stl C. diff Tox B Gene POSITIVE (NEGATIVE) A* 02/07/20 14:05 Urine Opiates Screen NEGATIVE (NEGATIVE) 02/06/20 14:50 Ur Oxycodone Screen NEGATIVE (NEGATIVE) 02/06/20 14:50 Urine Methadone Screen NEGATIVE (NEGATIVE) 02/06/20 14:50 Ur Propoxyphene Screen NEGATIVE (NEGATIVE) 02/06/20 14:50 Ur Barbiturates Screen NEGATIVE (NEGATIVE) 02/06/20 14:50 Ur Tricyclics Screen NEGATIVE (NEGATIVE) 02/06/20 14:50 Ur Phencyclidine Scrn NEGATIVE (NEGATIVE) 02/06/20 14:50 Ur Amphetamine Screen NEGATIVE (NEGATIVE) 02/06/20 14:50 U Methamphetamines Scrn NEGATIVE (NEGATIVE) 02/06/20 14:50 U Benzodiazepines Scrn NEGATIVE (NEGATIVE) 02/06/20 14:50 Urine Cocaine Screen NEGATIVE (NEGATIVE) 02/06/20 14:50 U Cannabinoids Screen NEGATIVE (NEGATIVE) 02/06/20 14:50 Ethyl Alcohol < 5.0 mg/dL 02/06/20 14:37 Serum Ketones SMALL (NEGATIVE) H 02/06/20 14:37 - Procedures Procedures: Procedures TRANSFUSE NONAUT RED BLOOD CELLS IN PERIPH VEIN, PERC (11/20/19)
[2020-02-08] MEDS: D5NS W/20 MEQ KCL 1,000 ML IV SCH (21:34)
[2020-02-08] MEDS ORDERED: LIDOCAINE PATCH 5% TOP PRN (22:49)
[2020-02-09] MEDS: POTASSIUM CHLOR 10 MEQ/100 ML 10 MEQ/100 ML BAG IV SCH ×7 (00:18→14:31)
[2020-02-09] MEDS: SODIUM CHLORIDE FLUSH 0.9% 10 ML SYRINGE IVP SCH ×3 (00:18→16:05)
[2020-02-09] MEDS: SODIUM CHLORIDE FLUSH 0.9% 10 ML SYRINGE IVP PRN (05:28)
[2020-02-09] MEDS: PHENAZOPYRIDINE 100 MG TABLET PO SCH ×3 (05:28→20:22)
[2020-02-09] MEDS: PANTOPRAZOLE 40 MG VIAL IVP SCH (05:28)
[2020-02-09 07:46] LABS: HGB - HEMOGLOBIN 9.2 g/dL (12.0-16.0); LYMPHOCYTES # (AUTO) 0.8 10^3/uL (1.5-3.5); LYMPHOCYTES % (AUTO) 37.9 %; MEAN CORPUSCULAR HEMOGLOBIN 38.3 pg (27.0-31.0); MEAN CORPUSCULAR HGB CONC 33.3 g/dL (32.0-36.0); MEAN PLATELET VOLUME 10.8 fL (7.9-10.8); MONOCYTES # (AUTO) 0.3 10^3/uL (0.0-1.0); MONOCYTES % (AUTO) 12.3 %; NEUTROPHILS # (AUTO) 0.9 10^3/uL (1.5-6.6); NEUTROPHILS % (AUTO) 45.8 %; PLT - PLATELET COUNT 45 10^3/uL (130-450); RED CELL DISTRIBUTION WIDTH 13.5 % (12.0-15.0)
--- NOTE | 2020-02-09 08:04 | PROVIDER PROGRESS NOTE ---
Subjective - Prog Note Date Prog Note Date: 02/09/20 - Subjective Subjective: She continues report of some epigastric pain but she is eager to advance her diet. She still reports diarrhea. She has not noticed any bleeding. Reports no chest pain. Current Medications - Current Medications Current Medications: Active Medications Albuterol/Ipratropium (Duoneb) 3 ml INH Q4HR PRN PRN Reason: Wheezing Baclofen (Lioresal) 10 mg PO TID [facility] Buspirone HCl (Buspar) 15 mg PO BID [facility] Cefuroxime Axetil (Vantin) 100 mg PO BID [facility] Duloxetine HCl (Cymbalta) 60 mg PO DAILY [facility] Sodium Chloride (Normal Saline 0.9%) 1,000 mls @ 0 mls/hr IV .Q0M [facility] Last Infusion: 02/08/20 22:05 Dose: Infused Documented by: Multivitamins 10 ml/ Folic Acid 1 mg/ Thiamine HCl 100 mg / Magnesium Sulfate 2 gm/Sodium Chloride 1,015.2 mls @ 60 mls/hr IV DAILY [facility] Last Admin: 02/09/20 09:50 Dose: 60 mls/hr Documented by: Potassium Chloride/Dextrose/Sod Cl () 1,000 mls @ 83.333 mls/hr IV .Q12H [facility] Last Infusion: 02/09/20 09:53 Dose: Infused Documented by: Potassium Chloride (Potassium Chloride) 10 meq in 100 mls @ 100 mls/hr IV Q1H [facility] Stop: 02/09/20 13:59 Lactulose (Enulose) 10 gm PO DAILY [facility] Last Admin: 02/09/20 09:49 Dose: 10 gm Documented by: Lidocaine (Lidoderm Patch) 1 patch TOP DAILY PRN PRN Reason: PAIN Lorazepam (Ativan Inj (Vial)) 1 mg IVP Q30M PRN; Protocol PRN Reason: CIWA >8 Metoprolol Succinate (Toprol Xl) 25 mg PO DAILY [facility] Last Admin: 02/09/20 09:49 Dose: 25 mg Documented by: Mineral Oil (Cavilon) 1 applic TOP PRN PRN PRN Reason: Skin Care Non-Formulary Medication (Gabapentin [Neurontin]) 300 mg PO TID [facility] Ondansetron HCl (Zofran Inj) 4 mg IVP Q4HR PRN PRN Reason: Nausea / Vomiting Last Admin: 02/07/20 07:39 Dose: 4 mg Documented by: Pantoprazole Sodium (Protonix) 40 mg IVP QDAC [facility] Last Admin: 02/09/20 05:28 Dose: 40 mg Documented by: Phenazopyridine HCl (Pyridium) 100 mg PO TID [facility] Stop: 02/10/20 14:01 Last Admin: 02/09/20 05:28 Dose: 100 mg Documented by: Sodium Chloride (Normal Saline Flush 0.9%) 10 ml IVP PRN PRN PRN Reason: NEEDED PER PROVIDER ORDERS Last Admin: 02/09/20 05:28 Dose: 10 ml Documented by: Sodium Chloride (Normal Saline Flush 0.9%) 10 ml IVP 0100,0900,1700 [facility] Last Admin: 02/09/20 09:53 Dose: Not Given Documented by: Sucralfate (Carafate) 1 gm PO 0700,1100,1600,2200 PRN PRN Reason: Heartburn Thiamine HCl (Vitamin B-1) 100 mg PO DAILY [facility] Last Admin: 02/09/20 09:50 Dose: 100 mg Documented by: Throat Lozenges (Cepacol) 1 lozenge MM Q2HR PRN PRN Reason: Throat pain Last Admin: 02/08/20 08:48 Dose: 1 lozenge Documented by: Trazodone HCl (Desyrel) 150 mg PO QPM [facility] Vancomycin HCl (Vancocin) 125 mg PO QID [facility] Last Admin: 02/09/20 09:49 Dose: 125 mg Documented by: Venlafaxine HCl (Effexor) 75 mg PO DAILY [facility] DULoxetine [Cymbalta] 60 mg PO DAILY 10/11/18 busPIRone [Buspar] 15 mg PO BID 10/11/18 traZODone [Desyrel] 150 mg PO QPM 10/11/18 Meloxicam 15 mg PO DAILY 11/20/19 Alendronate [Fosamax] 70 mg PO FR 11/21/19 Famotidine [Pepcid] 20 mg PO BID 11/21/19 Furosemide 40 mg PO DAILY PRN 11/21/19 Metoprolol Succinate [Toprol Xl] 25 mg PO BID 11/21/19 SUMAtriptan succinate [Sumatriptan Succinate] 6 mg SQ ONCE PRN 11/21/19 Venlafaxine HCl 75 mg PO DAILY 11/21/19 Baclofen 10 mg PO TID 02/06/20 Estrogens, Conjugated Cream [Premarin Cream] 1 applic VG DAILY 02/06/20 Gabapentin [Neurontin] 800 mg PO TID 02/06/20 SUMAtriptan succinate [Sumatriptan Succinate] 100 mg PO DAILY PRN 02/06/20 Objective - Vital Signs/Intake & Output Reviewed Vital Signs: Yes Vital Signs: Vital Signs x48h Temp Pulse Resp BP Pulse Ox 02/09/20 07:59 36.5 C 101 H 18 133/81 H 99 02/09/20 06:12 36.3 C L 89 20 130/75 100 02/09/20 05:00 18 99 02/09/20 00:28 37.0 C 87 18 127/73 99 Intake & Output: Intake & Output 02/06/20 02/07/20 02/08/20 02/09/20 23:59 23:59 23:59 23:59 Intake Total 2504.333 5784.200 9507.87 1267 Output Total 200 Balance 2504.333 5584.200 9507.87 1267 - Objective General Appearance: positive: No acute distress, Alert Eyes Bilateral: positive: Normal inspection, Conjunctivae nml ENT: positive: ENT inspection nml Neck: positive: Nml inspection Respiratory: positive: No respiratory distress, Other (Diminished breath sounds in the bases.). negative: Wheezes, Rales Cardiovascular: positive: No murmur, Tachycardia. negative: Bradycardia, Systolic murmur Abdomen: positive: Tenderness (Mild tenderness in the epigastric region.), Abnml bowel sounds (Hyperactive). negative: Non-tender, Guarding, Rebound Skin: positive: Warm, Dry Extremities: positive: Full ROM, No pedal edema Neurologic/Psychiatric: positive: Other (No focal deficits.). negative: Disoriented to person, Disoriented to place - Lab Results Fish Bones: 02/09/20 07:39 02/09/20 07:39 Other Labs: Lab Results x24hrs 02/09/20 02/09/20 02/08/20 Range/Units 07:39 07:39 18:40 WBC 2.0 L* (4.8-10.8) x10^3/uL RBC 2.40 L (4.20-5.40) 10^6/uL Hgb 9.2 L (12.0-16.0) g/dL Hct 27.6 L (37.0-47.0) % MCV 115.0 H (81.0-99.0) fL MCH 38.3 H (27.0-31.0) pg MCHC 33.3 (32.0-36.0) g/dL RDW 13.5 (12.0-15.0) % Plt Count 45 L (130-450) 10^3/uL MPV 10.8 (7.9-10.8) fL Manual Slide Review Indicated VBG pH 7.485 H (7.31-7.41) VBG pCO2 33.1 L (41-51) mmHg VBG pO2 51.7 H (25-47) mmHg VBG HCO3 24.4 (23-28) mmol/L VBG Total CO2 25.4 (24-29) mmol/L VBG O2 Saturation 91.0 H (60-80) % VBG Base Excess 1.2 (-2 - +2) mmol/L Sodium (135-145) mmol/L Potassium (3.5-5.0) mmol/L Chloride (101-111) mmol/L Carbon Dioxide (21-32) mmol/L Anion Gap (6-13) BUN (6-20) mg/dL Creatinine (0.4-1.0) mg/dL Estimated GFR (MDRD) (>89) Glucose (70-100) mg/dL Calcium (8.5-10.3) mg/dL Ammonia 29.1 (7-35) umol/L 02/08/20 Range/Units 18:40 WBC (4.8-10.8) x10^3/uL RBC (4.20-5.40) 10^6/uL Hgb (12.0-16.0) g/dL Hct (37.0-47.0) % MCV (81.0-99.0) fL MCH (27.0-31.0) pg MCHC (32.0-36.0) g/dL RDW (12.0-15.0) % Plt Count (130-450) 10^3/uL MPV (7.9-10.8) fL Manual Slide Review VBG pH (7.31-7.41) VBG pCO2 (41-51) mmHg VBG pO2 (25-47) mmHg VBG HCO3 (23-28) mmol/L VBG Total CO2 (24-29) mmol/L VBG O2 Saturation (60-80) % VBG Base Excess (-2 - +2) mmol/L Sodium 141 (135-145) mmol/L Potassium 2.7 L (3.5-5.0) mmol/L Chloride 103 (101-111) mmol/L Carbon Dioxide 24 (21-32) mmol/L Anion Gap 14.0 H (6-13) BUN 5 L (6-20) mg/dL Creatinine 0.5 (0.4-1.0) mg/dL Estimated GFR (MDRD) 127 (>89) Glucose 145 H (70-100) mg/dL Calcium 8.0 L (8.5-10.3) mg/dL Ammonia (7-35) umol/L Assessment/Plan - Problem List (1) C. difficile diarrhea Impression: She continues to have diarrhea but this is improving. Today is day 2 of oral vancomycin which will be continued. She will be stable for discharge once she is having less frequent bowel movements and her electrolytes have stabilized. We will continue to hold her lactulose for the time being (2) Encephalopathy Impression: This has resolved. Suspect this was likely multifactorial and related to infection, dehydration, adverse reaction of her home medications in the setting of acute kidney injury. She is now alert and oriented and back to her baseline. CT of the head was unremarkable on admission. Her ammonia is also now within normal limits. Continue delirium precautions. We will resume her home medication including Lyrica and gabapentin but will decrease her gabapentin dose for the time being and uptitrate as necessary. (3) Pancytopenia Impression: She is pancytopenic and today she is neutropenic as well. Suspect this may be secondary to her alcohol use but will need to rule out other etiologies. This may be exacerbated by her infection. B12 and folate were within normal limits. We will continue to trend her CBC. We will check a retake count in the morning. She will need outpatient hematology follow-up and this was discussed with the patient today she may need a bone marrow biopsy. (4) Alcoholic hepatitis Impression: Her LFTs are improving and her INR within normal limits. This is likely related to her alcohol use. We will not obtain a right upper quadrant ultrasound this time given her LFTs are improving and she is not n.p.o. If her LFTs begin to rise then we will consider further imaging. Discussed the importance of alcohol cessation with the patient again and she reports being alcohol free for 1 month. Qualifiers: Ascites presence: without ascites Qualified Code(s): K70.10 - Alcoholic hepatitis without ascites (5) Alcoholic pancreatitis Impression: Lipase is elevated but has remained stable. Clinically, she appears to have mild pancreatitis that she does have some epigastric tenderness. She reports no alcohol use over the past month but she does have a history of alcoholism. She has been tolerating a clear liquid diet and would like this advanced we will place her on a full liquid diet. We will continue to trend her lipase. If it continues to increase then we will obtain further imaging. Qualifiers: Chronicity: acute Acute pancreatitis complication: no infection or necrosis Qualified Code(s): K85.20 - Alcohol induced acute pancreatitis without necrosis or infection (6) UTI (urinary tract infection) Impression: Her urine culture is growing E. coli. We will switch ceftriaxone to oral Vantin. She will need at least 5 days of antibiotics. Qualifiers: Urinary tract infection type: site unspecified Hematuria presence: without hematuria Qualified Code(s): N39.0 - Urinary tract infection, site not specified (7) Hypokalemia Impression: This is likely related to GI losses. We will continue to replace intravenously and orally. Daily BMP. (8) RYAN (acute kidney injury) Impression: This was likely prerenal injury. Her creatinine was 2.3 on admission and is now within normal limits. We will continue to monitor while she is hospitalized. (9) Depression Impression: We will resume her home Cymbalta and venlafaxine today.
[2020-02-09 08:31] LABS: FOLATE 18.73 ng/mL (5.90 - >24.8)
[2020-02-09 08:46] LABS: RBC MORPHOLOGY (MULTIPLE) 1+ ANISOCYTOSIS (NORMAL)
[2020-02-09 08:51] LABS: % IRON SATURATION 42 % (20-50); ALBUMIN 3.1 g/dL (3.2-5.5); ALBUMIN/GLOBULIN RATIO 1.2 (1.0-2.2); ALKALINE PHOSPHATASE 155 IU/L (42-121); ALT ALANINE AMINOTRANSFERASE 82 IU/L (10-60); AST ASPARTATE AMINOTRANSFERASE 85 IU/L (10-42); BUN - BLOOD UREA NITROGEN < 5 mg/dL (6-20); CALCIUM 8.5 mg/dL (8.5-10.3); CARBON DIOXIDE - CO2 25 mmol/L (21-32); CHLORIDE 103 mmol/L (101-111); CK- CREATINE KINASE 101 IU/L (22-269); CREATININE 0.5 mg/dL (0.4-1.0); GLUCOSE 190 mg/dL (70-100); IRON 70 ug/dL (28-170); LIPASE 890 U/L (22-51); MAGNESIUM 1.8 mg/dL (1.7-2.8); SODIUM 139 mmol/L (135-145); TOTAL IRON BINDING CAPACITY 165 ug/dL (250-450); TOTAL PROTEIN 5.6 g/dL (6.7-8.2); TRANSFERRIN 118 mg/dL (192-382)
[2020-02-09] MEDS ORDERED: MULTIVITAMIN 10 ML, FOLIC ACID INJ 1 MG, THIAMINE INJ 100 MG, MAGNESIUM SULFATE 2 GM in... IV SCH ×5 (09:00)
[2020-02-09] MEDS: cefTRIAXone 1 GM in SODIUM CHLORIDE 0.9% MINIBAG 100 ML IV SCH (09:48)
[2020-02-09] MEDS: METOPROLOL SUCCINATE 25 MG TABLET PO SCH (09:49)
[2020-02-09] MEDS: VANCOMYCIN 125 MG CAPSULE PO SCH ×4 (09:49→20:22)
[2020-02-09] MEDS: LACTULOSE 10 GM /15 ML UDC PO SCH (09:49)
[2020-02-09] MEDS: THIAMINE 100 MG TABLET PO SCH (09:50)
[2020-02-09] MEDS: D5NS W/20 MEQ KCL 1,000 ML IV SCH (09:53)
[2020-02-09] MEDS ORDERED: POTASSIUM CHLORIDE 20 MEQ TABLET PO ONE (10:27)
[2020-02-09] MEDS: busPIRone 5 MG TABLET PO SCH ×2 (11:54→20:21)
[2020-02-09] MEDS: DULoxetine 30 MG CAPSULE PO SCH (11:54)
[2020-02-09] MEDS: GABAPENTIN 300 MG CAPSULE PO SCH ×2 (14:27→20:22)
[2020-02-09] MEDS: BACLOFEN 10 MG TABLET PO SCH ×2 (14:27→20:22)
[2020-02-09] MEDS: CEFPODOXIME PROXETIL 100 MG TABLET PO SCH (20:22)
[2020-02-09] MEDS: traZODone 50 MG TABLET PO SCH (20:22)
[2020-02-10] MEDS: SODIUM CHLORIDE FLUSH 0.9% 10 ML SYRINGE IVP SCH ×3 (00:55→16:19)
[2020-02-10] MEDS: D5NS W/20 MEQ KCL 1,000 ML IV SCH (02:13)
[2020-02-10 05:31] LABS: BASOPHILS % (AUTO) 0.8 %; EOSINOPHILS % (AUTO) 1.7 %; HGB - HEMOGLOBIN 8.3 g/dL (12.0-16.0); MEAN CORPUSCULAR HEMOGLOBIN 36.4 pg (27.0-31.0); MEAN CORPUSCULAR HGB CONC 30.7 g/dL (32.0-36.0); MEAN CORPUSCULAR VOLUME 118.4 fL (81.0-99.0); MEAN PLATELET VOLUME 10.3 fL (7.9-10.8); MONOCYTES % (AUTO) 15.5 %; NEUTROPHILS % (AUTO) 38.7 %; PLT - PLATELET COUNT 68 10^3/uL (130-450); RED BLOOD COUNT 2.28 10^6/uL (4.20-5.40); RED CELL DISTRIBUTION WIDTH 13.8 % (12.0-15.0); WHITE BLOOD COUNT 2.4 x10^3/uL (4.8-10.8)
[2020-02-10 05:36] LABS: ABNORMAL LYMPHS % (MANUAL) 0 %
[2020-02-10 05:50] LABS: ALBUMIN 2.7 g/dL (3.2-5.5); ALBUMIN/GLOBULIN RATIO 1.2 (1.0-2.2); ALKALINE PHOSPHATASE 144 IU/L (42-121); ALT ALANINE AMINOTRANSFERASE 67 IU/L (10-60); AST ASPARTATE AMINOTRANSFERASE 71 IU/L (10-42); BUN - BLOOD UREA NITROGEN < 5 mg/dL (6-20); CARBON DIOXIDE - CO2 29 mmol/L (21-32); CHLORIDE 110 mmol/L (101-111); CREATININE 0.4 mg/dL (0.4-1.0); GLUCOSE 147 mg/dL (70-100); LIPASE 359 U/L (22-51); SODIUM 145 mmol/L (135-145)
[2020-02-10 05:59] LABS: BAND NEUTROPHILS % (MANUAL) 4 %; EOSINOPHILS # (MANUAL) 0.1 10^3/uL (0-0.7); LYMPHOCYTES # (MANUAL) 0.9 10^3/uL (1.5-3.5); LYMPHOCYTES % (MANUAL) 39 %; MONOCYTES # (MANUAL) 0.1 10^3/uL (0.0-1.0); PLATELET ESTIMATE, MANUAL DECREASED (<130,000) (NORMAL)
[2020-02-10 06:00] LABS: DIFFERENTIAL COMMENT MANUAL DIFFERENTIAL
[2020-02-10] MEDS: GABAPENTIN 300 MG CAPSULE PO SCH ×3 (06:05→22:06)
[2020-02-10] MEDS: PHENAZOPYRIDINE 100 MG TABLET PO SCH ×2 (06:05→13:30)
[2020-02-10] MEDS: PANTOPRAZOLE 40 MG VIAL IVP SCH (06:05)
[2020-02-10] MEDS: BACLOFEN 10 MG TABLET PO SCH ×3 (06:05→22:06)
[2020-02-10] MEDS ORDERED: POTASSIUM CHLORIDE 20 MEQ TABLET PO ONE (08:00)
--- NOTE | 2020-02-10 09:23 | PROVIDER PROGRESS NOTE ---
Subjective - Prog Note Date Prog Note Date: 02/10/20 - Subjective Subjective: She reports feeling better but still feels a little bit lousy overall. Reports her abdominal pain is improved. She is having less diarrhea as well. The frequency and volume of stool has decreased. Reports no chest pain or dyspnea. She was able to get out of bed and ambulate today. She is happy that her diet has been advanced. Current Medications - Current Medications Current Medications: Active Medications Albuterol/Ipratropium (Duoneb) 3 ml INH Q4HR PRN PRN Reason: Wheezing Baclofen (Lioresal) 10 mg PO TID [facility] Last Admin: 02/10/20 13:30 Dose: 10 mg Documented by: Buspirone HCl (Buspar) 15 mg PO BID [facility] Last Admin: 02/10/20 10:13 Dose: 15 mg Documented by: Cefuroxime Axetil (Vantin) 100 mg PO BID [facility] Last Admin: 02/10/20 10:15 Dose: 100 mg Documented by: Duloxetine HCl (Cymbalta) 60 mg PO DAILY [facility] Last Admin: 02/10/20 10:16 Dose: 60 mg Documented by: Gabapentin (Neurontin) 600 mg PO TID [facility] Last Admin: 02/10/20 13:31 Dose: 600 mg Documented by: Sodium Chloride (Normal Saline 0.9%) 1,000 mls @ 0 mls/hr IV .Q0M [facility] Last Infusion: 02/08/20 22:05 Dose: Infused Documented by: Ibuprofen (Motrin) 400 mg PO Q6HR PRN PRN Reason: PAIN Last Admin: 02/10/20 13:30 Dose: 400 mg Documented by: Lidocaine (Lidoderm Patch) 1 patch TOP DAILY PRN PRN Reason: PAIN Metoprolol Succinate (Toprol Xl) 25 mg PO DAILY [facility] Last Admin: 02/10/20 10:12 Dose: 25 mg Documented by: Mineral Oil (Cavilon) 1 applic TOP PRN PRN PRN Reason: Skin Care Multivitamins (Theragran) 1 tab PO DAILYWM [facility] Last Admin: 02/10/20 10:15 Dose: 1 tab Documented by: Ondansetron HCl (Zofran Inj) 4 mg IVP Q4HR PRN PRN Reason: Nausea / Vomiting Last Admin: 02/07/20 07:39 Dose: 4 mg Documented by: Pantoprazole Sodium (Protonix) 40 mg IVP QDAC [facility] Last Admin: 02/10/20 06:05 Dose: 40 mg Documented by: Sodium Chloride (Normal Saline Flush 0.9%) 10 ml IVP PRN PRN PRN Reason: NEEDED PER PROVIDER ORDERS Last Admin: 02/10/20 13:29 Dose: 10 ml Documented by: Sodium Chloride (Normal Saline Flush 0.9%) 10 ml IVP 0100,0900,1700 [facility] Last Admin: 02/10/20 12:28 Dose: Not Given Documented by: Sucralfate (Carafate) 1 gm PO 0700,1100,1600,2200 PRN PRN Reason: Heartburn Last Admin: 02/10/20 13:28 Dose: 1 gm Documented by: Thiamine HCl (Vitamin B-1) 100 mg PO DAILY [facility] Last Admin: 02/10/20 10:14 Dose: 100 mg Documented by: Throat Lozenges (Cepacol) 1 lozenge MM Q2HR PRN PRN Reason: Throat pain Last Admin: 02/08/20 08:48 Dose: 1 lozenge Documented by: Trazodone HCl (Desyrel) 150 mg PO QPM [facility] Last Admin: 02/09/20 20:22 Dose: 150 mg Documented by: Vancomycin HCl (Vancocin) 125 mg PO QID [facility] Last Admin: 02/10/20 13:31 Dose: 125 mg Documented by: Venlafaxine HCl (Effexor) 75 mg PO DAILY [facility] Last Admin: 02/10/20 10:16 Dose: 75 mg Documented by: DULoxetine [Cymbalta] 60 mg PO DAILY 10/11/18 busPIRone [Buspar] 15 mg PO BID 10/11/18 traZODone [Desyrel] 150 mg PO QPM 10/11/18 Meloxicam 15 mg PO DAILY 11/20/19 Alendronate [Fosamax] 70 mg PO FR 11/21/19 Famotidine [Pepcid] 20 mg PO BID 11/21/19 Furosemide 40 mg PO DAILY PRN 11/21/19 Metoprolol Succinate [Toprol Xl] 25 mg PO BID 11/21/19 SUMAtriptan succinate [Sumatriptan Succinate] 6 mg SQ ONCE PRN 11/21/19 Venlafaxine HCl 75 mg PO DAILY 11/21/19 Baclofen 10 mg PO TID 02/06/20 Estrogens, Conjugated Cream [Premarin Cream] 1 applic VG DAILY 02/06/20 Gabapentin [Neurontin] 800 mg PO TID 02/06/20 SUMAtriptan succinate [Sumatriptan Succinate] 100 mg PO DAILY PRN 02/06/20 Objective - Vital Signs/Intake & Output Reviewed Vital Signs: Yes Vital Signs: Vital Signs x48h Temp Pulse Resp BP BP Pulse Ox 02/10/20 08:18 38.1 C H 111 H 18 102/52 L 93 02/10/20 04:40 37.5 C 86 16 116/68 97 Intake & Output: Intake & Output 02/07/20 02/08/20 02/09/20 02/10/20 23:59 23:59 23:59 23:59 Intake Total 5784.200 9507.87 5309.333 1015.2 Output Total 200 1300 300 Balance 5584.200 9507.87 4009.333 715.2 - Objective General Appearance: positive: No acute distress, Alert Eyes Bilateral: positive: Normal inspection, Conjunctivae nml ENT: positive: ENT inspection nml Neck: positive: Nml inspection Respiratory: positive: No respiratory distress. negative: Wheezes, Rales Cardiovascular: positive: No murmur, Tachycardia. negative: Irregularly ir regular, Bradycardia, Systolic murmur Abdomen: positive: Tenderness (Mild epigastric tenderness.), Abnml bowel sounds (Hyperactive). negative: Non-tender, Guarding, Rebound Skin: positive: Warm, Dry Extremities: positive: Full ROM, No pedal edema Neurologic/Psychiatric: positive: Oriented x3, Motor nml. negative: Disoriented to person, Disoriented to place, Disoriented to time - Lab Results Fish Bones: 02/10/20 05:10 02/10/20 05:10 Other Labs: Lab Results x24hrs 02/10/20 02/10/20 Range/Units 05:10 05:10 WBC 2.4 L (4.8-10.8) x10^3/uL RBC 2.28 L (4.20-5.40) 10^6/uL Hgb 8.3 L (12.0-16.0) g/dL Hct 27.0 L (37.0-47.0) % MCV 118.4 H (81.0-99.0) fL MCH 36.4 H (27.0-31.0) pg MCHC 30.7 L (32.0-36.0) g/dL RDW 13.8 (12.0-15.0) % Plt Count 68 L (130-450) 10^3/uL MPV 10.3 (7.9-10.8) fL Neut # (Auto) Not Reportable Lymph # (Auto) Not Reportable [place] # (Auto) Not Reportable Eos # (Auto) Not Reportable Baso # (Auto) Not Reportable Absolute Nucleated RBC Not Reportable Total Counted 100 Band Neuts % (Manual) 4 (0 - 10) % Abnorm Lymph % (Manual) 0 % Nucleated RBC % Not Reportable Neutrophils # (Manual) 1.3 L (1.5-6.6) 10^3/uL Lymphocytes # (Manual) 0.9 L (1.5-3.5) 10^3/uL Monocytes # (Manual) 0.1 (0.0-1.0) 10^3/uL Eosinophils # (Manual) 0.1 (0-0.7) 10^3/uL Basophils # (Manual) 0.0 (0-0.1) 10^3/uL Differential Comment MANUAL DIFFERENTIAL Platelet Estimate DECREASED (<130,000) (NORMAL) RBC Morph Micro Appear 1+ HYPOCHROMASIA (NORMAL) Sodium 145 (135-145) mmol/L Potassium 3.4 L (3.5-5.0) mmol/L Chloride 110 (101-111) mmol/L Carbon Dioxide 29 (21-32) mmol/L Anion Gap 6.0 (6-13) BUN < 5 L (6-20) mg/dL Creatinine 0.4 (0.4-1.0) mg/dL Estimated GFR (MDRD) 165 (>89) Glucose 147 H (70-100) mg/dL Calcium 9.0 (8.5-10.3) mg/dL Total Bilirubin 1.0 (0.2-1.0) mg/dL AST 71 H (10-42) IU/L ALT 67 H (10-60) IU/L Alkaline Phosphatase 144 H (42-121) IU/L Total Protein 5.0 L (6.7-8.2) g/dL Albumin 2.7 L (3.2-5.5) g/dL Globulin 2.3 (2.1-4.2) g/dL Albumin/Globulin Ratio 1.2 (1.0-2.2) Lipase 359 H (22-51) U/L Assessment/Plan - Problem List (1) Fever Impression: Febrile this morning with temperature of 38.1 C. She has been leukopenic and neutropenic although both of these are improved today. She is already on oral vancomycin for C. difficile and is on oral Vantin for a urinary tract infection. It is unclear if this fever is from ongoing infection such as C. difficile or this could have possibly been related to her neutropenia. We will continue her on the oral vancomycin and oral Vantin for the urinary tract infection at this time. We will check blood cultures. We will keep her hospitalized overnight to monitor her fever curve. If she remains afebrile and there is no obvious source of new or worsening infection we will likely discharge her tomorrow. We will continue to monitor her white blood cell count. (2) C. difficile diarrhea Impression: The volume and frequency of diarrhea has improved. She is febrile this morning and it is unclear if is related to the C. difficile or not. She remains on oral vancomycin with today being day 3. We will discontinue IV fluids as she is tolerating a diet and is +10 L since admission. (3) Pancytopenia Impression: She has been leukopenic for a few years now but now she is also anemic and thrombocytopenic. This may be secondary to alcohol use. Her hemoglobin is slightly decreased today but appears to be around her baseline of 8-9. Her platelets have improved today. Her white count has also improved as well as her neutrophil count. Her reticulocyte index suggests an inappropriate response to the degree of her anemia. Her B12 and folate are within normal limits. We discussed the importance of alcohol cessation and the importance of follow-up with her primary care provider as she will need a referral to hematology as she likely will need a bone marrow biopsy. (4) UTI (urinary tract infection) Impression: Urine cultures growing E. coli which is pansensitive. We will continue oral Vantin at this time. Also had a low-grade fever this morning, do not suspect is related to her urinary tract infection. Qualifiers: Urinary tract infection type: site unspecified Hematuria presence: without hematuria Qualified Code(s): N39.0 - Urinary tract infection, site not specified (5) Alcoholic pancreatitis Impression: Her lipase is trending down and although she still has some mild epigastric pain she is tolerating a diet. We will continue with diet as tolerated and once again we discussed the importance of alcohol cessation. Qualifiers: Chronicity: acute Acute pancreatitis complication: no infection or necrosis Qualified Code(s): K85.20 - Alcohol induced acute pancreatitis without necrosis or infection (6) Alcoholic hepatitis Impression: Her LFTs are stable and improving. Continue outpatient follow-up once she is discharged. Qualifiers: Ascites presence: without ascites Qualified Code(s): K70.10 - Alcoholic hepatitis without ascites (7) Hypokalemia Impression: Secondary to GI losses and is improving. Continue with potassium supplementation. (8) Depression Impression: Stable. Continue home medications. (9) RYAN (acute kidney injury) Impression: This was prerenal injury and has resolved. Her creatinine is back to baseline. (10) Encephalopathy Impression: This has resolved. This was likely multifactorial related to infection as well as dehydration. She is back to her baseline.
[2020-02-10 09:24] LABS: ABSOLUTE RETICS # AUTO 0.039 10^6/uL (0.020-0.110); RED BLOOD COUNT 2.25 10^6/uL (4.20-5.40)
[2020-02-10] MEDS: METOPROLOL SUCCINATE 25 MG TABLET PO SCH ×2 (10:12→22:08)
[2020-02-10] MEDS: busPIRone 5 MG TABLET PO SCH ×2 (10:13→22:05)
[2020-02-10] MEDS: THIAMINE 100 MG TABLET PO SCH (10:14)
[2020-02-10] MEDS: MULTIVITAMIN TABLET PO SCH (10:15)
[2020-02-10] MEDS: CEFPODOXIME PROXETIL 100 MG TABLET PO SCH ×2 (10:15→22:05)
[2020-02-10] MEDS: VANCOMYCIN 125 MG CAPSULE PO SCH ×4 (10:16→22:05)
[2020-02-10] MEDS: VENLAFAXINE 37.5 MG TABLET PO SCH (10:16)
[2020-02-10] MEDS: DULoxetine 30 MG CAPSULE PO SCH (10:16)
[2020-02-10] MEDS: SUCRALFATE 1 GM/10 ML UDC PO PRN (13:28)
[2020-02-10] MEDS: SODIUM CHLORIDE FLUSH 0.9% 10 ML SYRINGE IVP PRN (13:29)
[2020-02-10] MEDS: IBUPROFEN 400 MG TABLET PO PRN (13:30)
[2020-02-10] MEDS: traZODone 50 MG TABLET PO SCH (22:08)
[2020-02-11] MEDS: SODIUM CHLORIDE FLUSH 0.9% 10 ML SYRINGE IVP SCH ×2 (00:56→10:10)
[2020-02-11 05:19] LABS: BASOPHILS % (AUTO) 0.4 %; EOSINOPHILS % (AUTO) 2.3 %; HGB - HEMOGLOBIN 8.7 g/dL (12.0-16.0); LYMPHOCYTES % (AUTO) 39.2 %; MEAN CORPUSCULAR HEMOGLOBIN 36.3 pg (27.0-31.0); MEAN CORPUSCULAR HGB CONC 30.3 g/dL (32.0-36.0); MEAN CORPUSCULAR VOLUME 119.6 fL (81.0-99.0); MEAN PLATELET VOLUME 10.5 fL (7.9-10.8); MONOCYTES % (AUTO) 20.8 %; NEUTROPHILS % (AUTO) 36.5 %; PLT - PLATELET COUNT 88 10^3/uL (130-450); RED CELL DISTRIBUTION WIDTH 14.1 % (12.0-15.0); WHITE BLOOD COUNT 2.7 x10^3/uL (4.8-10.8)
[2020-02-11 05:23] LABS: ABNORMAL LYMPHS % (MANUAL) 0 %
[2020-02-11 05:25] LABS: ALBUMIN 2.9 g/dL (3.2-5.5); ALBUMIN/GLOBULIN RATIO 1.2 (1.0-2.2); CALCIUM 9.2 mg/dL (8.5-10.3); CREATININE 0.5 mg/dL (0.4-1.0); TOTAL PROTEIN 5.4 g/dL (6.7-8.2)
[2020-02-11] MEDS: PANTOPRAZOLE 40 MG TABLET PO SCH (06:13)
[2020-02-11] MEDS: BACLOFEN 10 MG TABLET PO SCH ×2 (06:13→13:28)
[2020-02-11] MEDS: SUCRALFATE 1 GM/10 ML UDC PO PRN ×2 (06:20→10:20)
[2020-02-11 06:21] LABS: BAND NEUTROPHILS % (MANUAL) 2 %; DIFFERENTIAL COMMENT MANUAL DIFFERENTIAL; LYMPHOCYTES # (MANUAL) 1.2 10^3/uL (1.5-3.5); LYMPHOCYTES % (MANUAL) 43 %; MONOCYTES # (MANUAL) 0.3 10^3/uL (0.0-1.0); PLATELET ESTIMATE, MANUAL DECREASED (<130,000) (NORMAL)
[2020-02-11] MEDS ORDERED: SACCHAROMYCES BOULARDII 250 MG CAPSULE PO SCH (09:00)
[2020-02-11] MEDS ORDERED: SODIUM CHLORIDE 0.9% 500 ML IV ONE (09:01)
--- NOTE | 2020-02-11 09:10 | Discharge Plan ---
Discharge Plan Problem Reviewed?: Yes Disposition: Home, Self Care Condition: Stable Prescriptions: Albuterol Sulfate [Albuterol Sulfate Hfa] 8.5 gm IH Q4HR PRN #7 [id number] PRN Reason: Wheezing Pantoprazole [Protonix] 40 mg PO QDAC #30 tablet Vancomycin [Vancocin] 125 mg PO QID 7 Days #28 capsule Cefpodoxime Proxetil [Vantin] 100 mg PO BID #5 tablet Diet: Regular Activity Restrictions: Activity as Tolerated Instruction Topics: Clostridium Difficile Infec Health Concerns: You were seen in the hospital because you had 2 different infections. You had a urinary tract infection and a stool infection called C. difficile. You were also very dehydrated and this caused you to have kidney problems. You were treated with IV fluids and antibiotics with improvement in your symptoms. You are now stable for discharge home. Plan of Treatment: Please take Vantin 100 mg twice daily for 2 more days to complete 7 days of treatment for the urinary tract infection. Please take oral vancomycin 125 mg 4 times a day for 7 more days to complete 10 days of treatment for the stool infection called C. difficile. It is important that you remain hydrated at home and drink plenty of fluids. Please do not take your lactulose while you are still having diarrhea from the stool infection. This diarrhea will continue to improve as you complete the antibiotic treatment for the infection. Once your diarrhea has resolved then you can restart the lactulose. You should be taking this to have approximately 2-3 bowel movements a day. The lactulose is important to take as this will prevent your ammonia from being elevated. Your ammonia levels are elevated due to your liver not working well from the alcohol use. High ammonia levels can cause you to be confused, sleepy or even unresponsive. The lactulose helps you get rid of the ammonia through bowel movements. It is crucial that you stop drinking alcohol as you have been doing so for the past month. You already have signs of liver damage from the alcohol but fortunately your numbers are improving. Your alcohol use has caused you to have pancreatitis as well. If you continue to drink alcohol, your liver will develop irreversible damage and ultimately cause liver failure which can lead to . It is important a follow-up with your primary care doctor in 1 week and it is re commended that you are referred to a blood doctor again as your blood counts have been low over the past couple of months and you may ultimately need a bone marrow biopsy. Assessment: Patient expressed understanding of the treatment plan. Additional Instructions or Follow Up instructions: Please follow-up with Dr. Pace on 02/18/2020 at 1:20pm. You will need to arrive at 1:00pm for your appointment. Fortunately, Dr. Mathur is unavailable next week and that is why you will be seeing Dr. Pace. No Smoking: If you smoke, Please STOP! Call for help.
--- NOTE | 2020-02-11 09:19 | DISCHARGE SUMMARY ---
"Discharge Summary Admit Date: 02/06/20 Discharge Date: 02/11/20 Discharging Provider: Tian Kay Primary Care Provider: Royer Mathur Code Status: Attempt Resuscitation Condition at Discharge: Stable Discharge Disposition: 01 Home, Self Care - DIAGNOSES Admission Diagnoses: UTI Acute renal failure Alcoholic ketoacidosis Alcoholic pancreatitis Alcoholism Encephalopathy Elevated liver enzymes Depression Hypertension Discharge Diagnoses with Status of Each Condition: C. difficile diarrhea - improving. Pancytopenia - stable. UTI - improving. Alcoholic pancreatitis - resolved. Alcoholic hepatitis - improving. Hypokalemia - resolved. Depression - stable. Acute kidney injury - resolved. Encephalopathy - resolved. - HPI History of Present Illness: H&P per Dr. Reynolds: The account below was obtained from the HPI of the ED physicians H&P because at the time of my visit this patient was somewhat lethargic and not able to provide a reliable history. Patient is a 59-year-old female with history of alcohol abuse who presented to the ED with altered mental status. It was reported that she had been sitting in her chair for the past 3 days. Upon arrival she was noted to be incontinent of urine. She reported that she has not been drinking for some time but did not specify how long. Work-up in the ED included a UA which was indicative of a UTI. She was also found to have a bicarbonate level of 9, lipase 960, CK 520 and elevated liver enzymes. As a result she was presented for admission for further treatment. At bedside she is awake and but somewhat lethargic. She has significant bruise on her left hip. There are other small bruises on the left side. She does not appear to have any respiratory distress. She mainly just stares when asked about pain. There are no focal neurologic deficits. The rest of her history is unremarkable. - CONSULTS | PROCEDURES Consultations: Social Work Procedures: CT of the head on February 05 showed no acute intracranial abnormalities. New opacification of left mastoid air cells with osseous erosions overlying soft tissue amatory changes. Findings may represent mastoiditis. - HOSPITAL COURSE Hospital Course: She was admitted to the floor for encephalopathy and acute renal failure as well as alcoholic ketoacidosis. She was initially treated with sodium bicarbonate IV given her pH was as low as 7.24. He had improvement in her acidosis and renal function with the IV sodium bicarbonate. She was also started on ceftriaxone IV empirically given the concern for urinary tract infection. The patient developed diarrhea and she was checked for C. difficile which came back positive on February 06. She was started on oral vancomycin late that evening. She has had improvement in her diarrhea since the initiation of treatment. She was prescribed oral vancomycin for 7 more days to complete 10 days of therapy. She was asked to hold her home lactulose as long as her diarrhea continued but once her diarrhea resolved she should restart this and titrate to 2-3 bowel movements a day. She also found to have alcoholic pancreatitis on admission with a lipase that was elevated. She never underwent a CT of the abdomen and pelvis. She was made n.p.o. initially started on clear liquid diet which she was able to tolerate and she was eventually advanced to regular diet which she has tolerated without difficulty. Given she was tolerating a diet, IV ceftriaxone was discontinued and she was started on oral Vantin for which she was prescribed for 2 more days to complete 7 days of therapy. During this hospitalization, she was noted to be pancytopenic. Her hemoglobin has remained stable with evidence of bleeding at around 8-9 which appears to be her baseline from her prior hospitalization. This anemia is new compared to lab s from a few years ago. She was also thrombocytopenic which is stable compared to her most recent hospitalization but once again is new compared to prior labs. She is chronically leukopenic and she reports seeing a quality assurance monitor chassis a few years ago in [place] but she no longer follows up with them. During this hospitalization, her white count got as low as 2.0. Absolute neutrophil count was as low as 0.9. Her white count has since improved and is 2.7 on discharge with an absolute interval count of 1.2. Her platelets have also improved from the 40s up to 88. Her hemoglobin has remained stable. Reticulocyte index was checked which showed an inappropriate response due to the degree of anemia. This may be secondary to her history of alcoholism. I spoke with the patient regarding the importance of follow-up on an outpatient basis as she would likely benefit from a referral to hematology once again. She is agreeable to seeing a quality assurance monitor chassis here at the [facility] clinic and I asked her to speak to her primary care provider regarding a referral. We discussed extensively during his hospitalization regarding the importance of alcohol cessation. She reports she not been drinking for the past month and alcohol level was negative on admission. She did not show evidence of withdrawal during his hospitalization. Social work was consulted and provided the patient with resources for her history of alcoholism. The patient is motivated to continue to abstain from alcohol use. During his hospitalization, her LFTs continued to improve. Of note, the day prior to discharge, she spiked a fever of 38.1C. Clinically, she appeared to be improving but we did obtain blood cultures which have been negative for 24 hours. Her fever was attributed likely to her C. difficile infection. She remains on oral vancomycin and oral Vantin and she has been afebrile now for over 24 hours prior to discharge. Her vital signs have also been stable and she is no longer tachycardic. I did contact her primary care provider's office to schedule an appointment and unfortunately her usual PCP, Dr. Mathur is unavailable next week but she is appointment on February [address] Pace. - ALLERGIES Allergies/Adverse Reactions: Allergies Allergy/AdvReac Type Severity Reaction Status Date / Time pregabalin [From Lyrica] Allergy Hives Verified 08/15/19 21:47 adhesive tape AdvReac Rash Verified 08/15/19 21:47 Sulfa (Sulfonamide AdvReac Itching Verified 08/15/19 21:47 Antibiotics) - MEDICATIONS Home Medications: Ambulatory Orders Medication Instructions Recorded Confirmed DULoxetine [Cymbalta] 60 mg PO DAILY 10/11/18 02/06/20 busPIRone [Buspar] 15 mg PO BID 10/11/18 02/06/20 traZODone [Desyrel] 150 mg PO QPM 10/11/18 02/06/20 Meloxicam 15 mg PO DAILY 11/20/19 02/06/20 Alendronate [Fosamax] 70 mg PO FR 11/21/19 02/06/20 Furosemide 40 mg PO DAILY PRN 11/21/19 02/06/20 Metoprolol Succinate [Toprol Xl] 25 mg PO BID 11/21/19 02/06/20 SUMAtriptan succinate [Sumatriptan 6 mg SQ ONCE PRN 11/21/19 02/06/20 Succinate] Venlafaxine HCl 75 mg PO DAILY 11/21/19 02/06/20 Lactulose 10 gm PO TID #1 bottle 11/27/19 02/06/20 Vitamin [Trinatal Rx 1] 1 tab PO DAILYWM #30 tablet 11/27/19 02/06/20 Thiamine [Vitamin B-1] 100 mg PO DAILY #30 tablet 11/27/19 02/06/20 Baclofen 10 mg PO TID 02/06/20 02/06/20 Estrogens, Conjugated Cream 1 applic VG DAILY 02/06/20 02/06/20 [Premarin Cream] Gabapentin [Neurontin] 800 mg PO TID 02/06/20 02/06/20 SUMAtriptan succinate [Sumatriptan 100 mg PO DAILY PRN 02/06/20 02/06/20 Succinate] Albuterol Sulfate [Albuterol 8.5 gm IH Q4HR PRN #7 hfa.aer.ad 02/11/20 Sulfate Hfa] Cefpodoxime Proxetil [Vantin] 100 mg PO BID #5 tablet 02/11/20 Pantoprazole [Protonix] 40 mg PO QDAC #30 tablet 02/11/20 Vancomycin [Vancocin] 125 mg PO QID 7 Days #28 capsule 02/11/20 - PHYSICAL EXAM AT DISCHARGE General Appearance: positive: No acute distress, Alert Eyes Bilateral: positive: Normal inspection, Conjunctivae nml ENT: positive: ENT inspection nml Neck: positive: Nml inspection Respiratory: positive: No respiratory distress. negative: Wheezes, Rales Cardiovascular: positive: Regular rate & rhythm, No murmur. negative: Irregular ly irregular, Tachycardia, Bradycardia, Systolic murmur Abdomen: positive: Non-tender, Nml bowel sounds, No distention. negative: Tenderness, Guarding, Rebound Skin: positive: Warm, Dry Extremities: positive: Full ROM, No pedal edema Neurologic/Psychiatric: positive: Oriented x3, Motor nml. negative: Disoriented to person, Disoriented to place, Disoriented to time Physical Exam Other/Comments: Vital Signs - 24 hr 02/10/20 02/10/20 02/10/20 17:00 20:56 21:20 Temperature 36.5 C 36.7 C Heart Rate 87 Heart Rate [ 100 87 Brachial] Respiratory 18 18 18 Rate Blood Pressure 132/82 H 127/77 [Right Brachial artery] O2 Saturation 100 99 02/10/20 02/11/20 02/11/20 23:35 03:30 07:47 Temperature 36.8 C 36.7 C 36.8 C Heart Rate Heart Rate [ 101 H 80 91 Brachial] Respiratory 16 16 16 Rate Blood Pressure 106/68 113/59 L 132/80 H [Right Brachial artery] O2 Saturation 99 96 100 02/11/20 02/11/20 09:33 13:03 Temperature 36.7 C Heart Rate 94 Heart Rate [ 92 Brachial] Respiratory 14 16 Rate Blood Pressure 118/81 H [Right Brachial artery] O2 Saturation 100 Oxygen O2 Source Room air - LABS Result Diagrams: 02/11/20 04:40 02/11/20 04:40 Other Lab Results: Microbiology Results 02/06/20 14:50 Urine,Catheterized Urine Culture - Final Escherichia Coli Laboratory Results 02/11/20 04:40: Sodium 144, Potassium 3.8, Chloride 107, Carbon Dioxide 31, Anion Gap 6.0, BUN 5 L, Creatinine 0.5, Estimated GFR (MDRD) 127, Glucose 116 H, Calcium 9.2, Total Bilirubin 1.0, AST 60 H, ALT 61 H, Alkaline Phosphatase 157 H, Total Protein 5.4 L, Albumin 2.9 L, Globulin 2.5, Albumin/Globulin Ratio 1.2 02/11/20 04:40: WBC 2.7 L, RBC 2.40 L, Hgb 8.7 L, Hct 28.7 L, MCV 119.6 H, MCH 36.3 H, MCHC 30.3 L, RDW 14.1, Plt Count 88 L, MPV 10.5, Neut # (Auto) Not Reportable, Lymph # (Auto) Not Reportable, [place] # (Auto) Not Reportable, Eos # (Auto) Not Reportable, Baso # (Auto) Not Reportable, Absolute Nucleated RBC Not Reportable, Total Counted 100, Band Neuts % (Manual) 2, Abnorm Lymph % (Manual) 0, Nucleated RBC % Not Reportable, Neutrophils # (Manual) 1.2 L, Lymphocytes # (Manual) 1.2 L, Monocytes # (Manual) 0.3, Eosinophils # (Manual) 0.0, Basophils # (Manual) 0.0, Differential Comment MANUAL DIFFERENTIAL, Platelet Estimate DECREASED (<130,000), RBC Morph Micro Appear 2+ MACROCYTOSIS 02/10/20 17:00: POC Whole Bld Glucose 123 H 02/10/20 05:10: RBC 2.25 L, Reticulocyte % (Auto) 1.71, Absolute Retic 0.039 02/10/20 05:10: Sodium 145, Potassium 3.4 L, Chloride 110, Carbon Dioxide 29, A nion Gap 6.0, BUN < 5 L, Creatinine 0.4, Estimated GFR (MDRD) 165, Glucose 147 H, Calcium 9.0, Total Bilirubin 1.0, AST 71 H, ALT 67 H, Alkaline Phosphatase 144 H, Total Protein 5.0 L, Albumin 2.7 L, Globulin 2.3, Albumin/Globulin Ratio 1.2, Lipase 359 H 02/10/20 05:10: WBC 2.4 L, RBC 2.28 L, Hgb 8.3 L, Hct 27.0 L, MCV 118.4 H, MCH 36.4 H, MCHC 30.7 L, RDW 13.8, Plt Count 68 L, MPV 10.3, Neut # (Auto) Not Reportable, Lymph # (Auto) Not Reportable, [place] # (Auto) Not Reportable, Eos # (Auto) Not Reportable, Baso # (Auto) Not Reportable, Absolute Nucleated RBC Not Reportable, Total Counted 100, Band Neuts % (Manual) 4, Abnorm Lymph % (Manual) 0, Nucleated RBC % Not Reportable, Neutrophils # (Manual) 1.3 L, Lymphocytes # (Manual) 0.9 L, Monocytes # (Manual) 0.1, Eosinophils # (Manual) 0.1, Basophils # (Manual) 0.0, Differential Comment MANUAL DIFFERENTIAL, Platelet Estimate DECREASED (<130,000), RBC Morph Micro Appear 1+ HYPOCHROMASIA - DIAGNOSTIC IMAGING Diagnostic Imaging Results: Final report reviewed - FOLLOW UP Follow Up: Follow-up with Dr. Pace on February 17 at 1:20 PM. - TIME SPENT Time Spent in Discharge (Minutes): 38"
[2020-02-11] MEDS: MULTIVITAMIN TABLET PO SCH (10:06)
[2020-02-11] MEDS: busPIRone 5 MG TABLET PO SCH (10:06)
[2020-02-11] MEDS: DULoxetine 30 MG CAPSULE PO SCH (10:07)
[2020-02-11] MEDS: THIAMINE 100 MG TABLET PO SCH (10:08)
[2020-02-11] MEDS: VENLAFAXINE 37.5 MG TABLET PO SCH (10:08)
[2020-02-11] MEDS: CEFPODOXIME PROXETIL 100 MG TABLET PO SCH (10:08)
[2020-02-11] MEDS: VANCOMYCIN 125 MG CAPSULE PO SCH ×2 (10:09→13:28)
[2020-02-11] MEDS: METOPROLOL SUCCINATE 25 MG TABLET PO SCH (10:11)
[2020-02-11] MEDS: GABAPENTIN 300 MG CAPSULE PO SCH ×2 (10:19→13:28)
[2020-02-11] MEDS: IBUPROFEN 400 MG TABLET PO PRN (10:20)
[2020-02-11 13:05] VITALS: BP 118/81
== END 2020-02-11 13:30 | disposition home or self-care (01) | DRG 371 ==
LOC: EDBD → EDUNIT# → ED 13:49 → MS2 15:56
PROVIDERS: ADMIT Internal Medicine; ATTEND Internal Medicine
DX: A04.72 Enterocolitis due to Clostridium difficile, not specified as recurrent (principal); G93.41 Metabolic encephalopathy; K85.20 Alcohol induced acute pancreatitis without necrosis or infection; D61.818 Other pancytopenia; N39.0 Urinary tract infection, site not specified; N17.9 Acute kidney failure, unspecified; E87.2 Acidosis; F10.20 Alcohol dependence, uncomplicated; K70.10 Alcoholic hepatitis without ascites; E87.6 Hypokalemia; F32.9 Major depressive disorder, single episode, unspecified; E86.0 Dehydration; D72.819 Decreased white blood cell count, unspecified; F17.210 Nicotine dependence, cigarettes, uncomplicated; S70.02XA Contusion of left hip, initial encounter; B96.20 Unspecified Escherichia coli [E. coli] as the cause of diseases classified elsewhere; R74.8 Abnormal levels of other serum enzymes; I10 Essential (primary) hypertension; D53.9 Nutritional anemia, unspecified; D69.6 Thrombocytopenia, unspecified; K74.60 Unspecified cirrhosis of liver
CPT/HCPCS: 36415; 51701; 70450; 71045; 80048; 80053; 80306; 80320; 81001; 81599; 82009; 82140; 82550; 82607; 82746; 82803; 83540; 83605; 83690; 83735; 84466; 85025; 85045; 85610; 87040; 87086; 87181; 87493; 93005; 94640; 96365; 96375; 99281; 99285; A6250; A9270; J2060; J3411; J7040; J8499; 81003; 87045; 87046

== ENCOUNTER 2020-02-18 13:40 | Outpatient (CLI) | payer MEDICAID ==
[2020-02-18 18:34] LABS: BASOPHILS # (AUTO) 0.1 10^3/uL (0.0-0.1); BASOPHILS % (AUTO) 2.3 %; EOSINOPHILS % (AUTO) 0.4 %; HGB - HEMOGLOBIN 11.6 g/dL (12.0-16.0); LYMPHOCYTES # (AUTO) 1.5 10^3/uL (1.5-3.5); LYMPHOCYTES % (AUTO) 30.5 %; MEAN CORPUSCULAR HEMOGLOBIN 36.5 pg (27.0-31.0); MEAN CORPUSCULAR HGB CONC 31.3 g/dL (32.0-36.0); MEAN CORPUSCULAR VOLUME 116.7 fL (81.0-99.0); MEAN PLATELET VOLUME 10.7 fL (7.9-10.8); MONOCYTES # (AUTO) 0.6 10^3/uL (0.0-1.0); MONOCYTES % (AUTO) 11.7 %; NEUTROPHILS # (AUTO) 2.7 10^3/uL (1.5-6.6); NEUTROPHILS % (AUTO) 54.5 %; PLT - PLATELET COUNT 320 10^3/uL (130-450); RED BLOOD COUNT 3.18 10^6/uL (4.20-5.40); RED CELL DISTRIBUTION WIDTH 14.6 % (12.0-15.0); WHITE BLOOD COUNT 4.9 x10^3/uL (4.8-10.8)
[2020-02-18 18:46] LABS: ALBUMIN 3.7 g/dL (3.2-5.5); ALBUMIN/GLOBULIN RATIO 1.1 (1.0-2.2); BILIRUBIN,TOTAL 1.1 mg/dL (0.2-1.0); CALCIUM 9.5 mg/dL (8.5-10.3); CREATININE 0.6 mg/dL (0.4-1.0); TOTAL PROTEIN 7.2 g/dL (6.7-8.2)
[2020-02-18 19:15] LABS: PLATELET ESTIMATE, MANUAL NORMAL (130-450,000) (NORMAL); PLATELET MORPHOLOGY NORMAL APPEARANCE (NORMAL)
== END 2020-02-18 23:59 | disposition home or self-care (01) ==
LOC: LAB.WCP 13:40
PROVIDERS: ATTEND Family Medicine
DX: K86.1 Other chronic pancreatitis (principal); K86.81 Exocrine pancreatic insufficiency
CPT/HCPCS: 36415; 80053; 82150; 83690; 85025

== ENCOUNTER 2020-02-20 04:54 | Emergency (ER) | payer MEDICAID ==
--- NOTE | 2020-02-20 05:02 | ED Physician Documentation ---
History of Present Illness - Stated complaint Stated Complaint: WEAKNESS/DIZZY - History obtained from History obtained from: Patient - Additonal information Additional information: The patient is a 59-year-old female presents with a chief complaint of generalized weakness. She reports she was admitted here recently after reviewing her recent discharge summary she had been admitted for alcoholic ketoacidosis acute renal failure and pancreatitis. She denies any alcohol use. She denies fevers or recent falls or trauma denies any new jaundice-like symptoms or decreased urinary output reviewing her records she also has been diagnosed with urinary tract infection was treated with antibiotics and then tested positive for C. difficile and was being treated with oral vancomycin. Review of Systems Constitutional: reports: Reviewed and negative Eyes: reports: Reviewed and negative Ears: reports: Reviewed and negative Nose: reports: Reviewed and negative Throat: reports: Reviewed and negative Cardiac: reports: Reviewed and negative Respiratory: reports: Reviewed and negative GI: reports: Reviewed and negative : reports: Reviewed and negative Skin: reports: Reviewed and negative Musculoskeletal: reports: Reviewed and negative Neurologic: reports: Generalized weakness Psychiatric: reports: Reviewed and negative Endocrine: reports: Reviewed and negative Immunocompromised: reports: Reviewed and negative PD PAST MEDICAL HISTORY - Past Medical History Cardiovascular: High cholesterol Respiratory: None Neuro: None Endocrine/Autoimmune: None GI: None NATUROPATHIC PHYSICIAN: None : None HEENT: None Psych: Depression Musculoskeletal: Chronic back pain Derm: None - Past Surgical History Past Surgical History: Yes Ortho: Spine surgery /NATUROPATHIC PHYSICIAN: section - Present Medications Home Medications: Ambulatory Orders Medication Instructions Recorded Confirmed DULoxetine [Cymbalta] 60 mg PO DAILY 10/11/18 02/06/20 busPIRone [Buspar] 15 mg PO BID 10/11/18 02/06/20 traZODone [Desyrel] 150 mg PO QPM 10/11/18 02/06/20 Meloxicam 15 mg PO DAILY 11/20/19 02/06/20 Alendronate [Fosamax] 70 mg PO FR 11/21/19 02/06/20 Furosemide 40 mg PO DAILY PRN 11/21/19 02/06/20 Metoprolol Succinate [Toprol Xl] 25 mg PO BID 11/21/19 02/06/20 SUMAtriptan succinate [Sumatriptan 6 mg SQ ONCE PRN 11/21/19 02/06/20 Succinate] Venlafaxine HCl 75 mg PO DAILY 11/21/19 02/06/20 Lactulose 10 gm PO TID #1 bottle 11/27/19 02/06/20 Vitamin [Trinatal Rx 1] 1 tab PO DAILYWM #30 tablet 11/27/19 02/06/20 Thiamine [Vitamin B-1] 100 mg PO DAILY #30 tablet 11/27/19 02/06/20 Baclofen 10 mg PO TID 02/06/20 02/06/20 Estrogens, Conjugated Cream 1 applic VG DAILY 02/06/20 02/06/20 [Premarin Cream] Gabapentin [Neurontin] 800 mg PO TID 02/06/20 02/06/20 SUMAtriptan succinate [Sumatriptan 100 mg PO DAILY PRN 02/06/20 02/06/20 Succinate] Albuterol Sulfate [Albuterol 8.5 gm IH Q4HR PRN #7 hfa.aer.ad 02/11/20 Sulfate Hfa] Cefpodoxime Proxetil [Vantin] 100 mg PO BID #5 tablet 02/11/20 Pantoprazole [Protonix] 40 mg PO QDAC #30 tablet 02/11/20 Vancomycin [Vancocin] 125 mg PO QID 7 Days #28 capsule 02/11/20 - Allergies Allergies/Adverse Reactions: Allergies Allergy/AdvReac Type Severity Reaction Status Date / Time pregabalin [From Lyrica] Allergy Hives Verified 02/20/20 05:11 adhesive tape AdvReac Rash Verified 02/20/20 05:11 Sulfa (Sulfonamide AdvReac Itching Verified 02/20/20 05:11 Antibiotics) - Social History Does the pt smoke?: No Smoking Status: Never smoker Does the pt drink ETOH?: Yes Does the pt have substance abuse?: No - Immunizations Immunizations are current?: Yes - POLST Patient has POLST: No POLST Status: Full Code PD ED PE NORMAL - Vitals Vital signs reviewed: Yes - General General: Alert and oriented X 3, No acute distress - HEENT HEENT: PERRL - Neck Neck: Supple, no meningeal sign - Cardiac Cardiac: RRR, No murmur - Respiratory Respiratory: Clear bilaterally - Abdomen Abdomen: Normal bowel sounds, Soft, Non tender, Non distended - Derm Derm: Warm and dry - Extremities Extremities: No deformity - Neuro Neuro: Alert and oriented X 3 - Psych Psych: Normal mood, Normal affect Results - Vitals Vitals: Vital Signs - 24 hr 02/20/20 05:00 Temperature 35.8 C L Heart Rate 109 H Respiratory 16 Rate Blood Pressure 132/74 H O2 Saturation 95 Oxygen O2 Source Room air - EKG (time done) 05:23 Rate: Other (no stemi) - Labs Labs: Laboratory Tests 02/20/20 02/20/20 02/20/20 06:00 06:00 06:00 WBC 4.5 L RBC 2.96 L Hgb 11.0 L Hct 34.6 L MCV 116.9 H MCH 37.2 H MCHC 31.8 L RDW 14.4 Plt Count 284 MPV 10.8 Manual Slide Review Indicated PT 12.5 INR 1.1 APTT 27.7 Sodium 141 Potassium 3.3 L Chloride 103 Carbon Dioxide 31 Anion Gap 7.0 BUN 16 Creatinine 0.8 Estimated GFR (MDRD) 74 L Glucose 151 H Lactic Acid Calcium 9.2 Magnesium 2.3 Total Bilirubin 0.8 AST 67 H ALT 45 Alkaline Phosphatase 155 H Total Creatine Kinase 24 Troponin I High Sens B-Natriuretic Peptide Total Protein 6.8 Albumin 3.5 Globulin 3.3 Albumin/Globulin Ratio 1.1 Lipase 108 H TSH Salicylates < 6.0 Acetaminophen < 10 L Ethyl Alcohol < 5.0 Serum Ketones NEGATIVE 02/20/20 02/20/20 02/20/20 06:00 06:00 06:00 WBC RBC Hgb Hct MCV MCH MCHC RDW Plt Count MPV Manual Slide Review PT INR APTT Sodium Potassium Chloride Carbon Dioxide Anion Gap BUN Creatinine Estimated GFR (MDRD) Glucose Lactic Acid 1.8 Calcium Magnesium Total Bilirubin AST ALT Alkaline Phosphatase Total Creatine Kinase Troponin I High Sens B-Natriuretic Peptide 35 Total Protein Albumin Globulin Albumin/Globulin Ratio Lipase TSH 1.59 Salicylates Acetaminophen Ethyl Alcohol Serum Ketones 02/20/20 06:00 WBC RBC Hgb Hct MCV MCH MCHC RDW Plt Count MPV Manual Slide Review PT INR APTT Sodium Potassium Chloride Carbon Dioxide Anion Gap BUN Creatinine Estimated GFR (MDRD) Glucose Lactic Acid Calcium Magnesium Total Bilirubin AST ALT Alkaline Phosphatase Total Creatine Kinase Troponin I High Sens 6.4 B-Natriuretic Peptide Total Protein Albumin Globulin Albumin/Globulin Ratio Lipase TSH Salicylates Acetaminophen Ethyl Alcohol Serum Ketones PD MEDICAL DECISION MAKING - ED course Complexity details: reviewed old records, reviewed results, re-evaluated patient, considered differential (Alcoholic ketoacidosis acute kidney injury pancreatitis dehydration Warnicke Korsakoff syndrome), d/w patient, d/w family ED course: 59-year-old female recently admitted for alcoholic ketoacidosis acute renal failure pancreatitis and also C. difficile. Presents today for overall just not feeling well her labs are unremarkable she is tolerated p.o. challenge. Patient is asking to be discharged home will discharge home at this time. Departure - Departure Disposition: 01 Home, Self Care Clinical Impression: Weakness Condition: Stable Instructions: ED Weakness [facility] Follow-Up: Royer Mathur MD [Primary Care Provider] - 02/20/20 Comments: follow up with your PCP this week. return to the emergency department with any concerns.
[2020-02-20] MEDS ORDERED: FOLIC ACID INJ 1 MG, THIAMINE INJ 100 MG, MAGNESIUM SULFATE 2 GM, MULTIVITAMIN 10 ML in... IV STA ×5 (05:16)
[2020-02-20] MEDS ORDERED: SODIUM CHLORIDE 0.9% 1,000 ML IV ONE (06:06)
[2020-02-20] MEDS ORDERED: THIAMINE 100 MG/1 ML 2 ML MDV ONE (06:06)
[2020-02-20] MEDS ORDERED: FOLIC ACID 5 MG/1 ML 10ML MDV ONE (06:11)
[2020-02-20 06:12] LABS: BASOPHILS # (AUTO) 0.1 10^3/uL (0.0-0.1); BASOPHILS % (AUTO) 2.5 %; EOSINOPHILS # (AUTO) 0.1 10^3/uL (0.0-0.7); EOSINOPHILS % (AUTO) 1.8 %; LYMPHOCYTES # (AUTO) 1.8 10^3/uL (1.5-3.5); LYMPHOCYTES % (AUTO) 39.6 %; MEAN CORPUSCULAR HEMOGLOBIN 37.2 pg (27.0-31.0); MEAN CORPUSCULAR HGB CONC 31.8 g/dL (32.0-36.0); MEAN CORPUSCULAR VOLUME 116.9 fL (81.0-99.0); MEAN PLATELET VOLUME 10.8 fL (7.9-10.8); MONOCYTES # (AUTO) 0.6 10^3/uL (0.0-1.0); MONOCYTES % (AUTO) 13.7 %; NEUTROPHILS # (AUTO) 1.9 10^3/uL (1.5-6.6); PLT - PLATELET COUNT 284 10^3/uL (130-450); RED BLOOD COUNT 2.96 10^6/uL (4.20-5.40); RED CELL DISTRIBUTION WIDTH 14.4 % (12.0-15.0); WHITE BLOOD COUNT 4.5 x10^3/uL (4.8-10.8)
[2020-02-20] MEDS ORDERED: MAGNESIUM SULFATE 1 GM/2 ML VIAL ONE (06:12)
[2020-02-20 06:19] LABS: INR 1.1 (0.8-1.2); PT - PROTHROMBIN TIME 12.5 secs (9.9-12.6)
[2020-02-20 06:23] LABS: KETONES, SERUM (ACETEST) NEGATIVE (NEGATIVE)
[2020-02-20 06:26] LABS: ACETAMINOPHEN < 10 ug/mL (10-30); ALBUMIN 3.5 g/dL (3.2-5.5); ALBUMIN/GLOBULIN RATIO 1.1 (1.0-2.2); ALKALINE PHOSPHATASE 155 IU/L (42-121); ALT ALANINE AMINOTRANSFERASE 45 IU/L (10-60); AST ASPARTATE AMINOTRANSFERASE 67 IU/L (10-42); BILIRUBIN,TOTAL 0.8 mg/dL (0.2-1.0); BUN - BLOOD UREA NITROGEN 16 mg/dL (6-20); CALCIUM 9.2 mg/dL (8.5-10.3); CARBON DIOXIDE - CO2 31 mmol/L (21-32); CHLORIDE 103 mmol/L (101-111); CK- CREATINE KINASE 24 IU/L (22-269); CREATININE 0.8 mg/dL (0.4-1.0); GLUCOSE 151 mg/dL (70-100); LIPASE 108 U/L (22-51); MAGNESIUM 2.3 mg/dL (1.7-2.8); PARTIAL THROMBOPLASTIN TIME 27.7 secs (24.9-33.3); SALICYLATE < 6.0 mg/dL; SODIUM 141 mmol/L (135-145); TOTAL PROTEIN 6.8 g/dL (6.7-8.2)
[2020-02-20 06:59] LABS: RBC MORPHOLOGY (MULTIPLE) 1+ MACROCYTOSIS (NORMAL)
[2020-02-20 07:00] LABS: PLATELET ESTIMATE, MANUAL NORMAL (130-450,000) (NORMAL); PLATELET MORPHOLOGY NORMAL APPEARANCE (NORMAL)
[2020-02-20 07:11] VITALS: BP 103/69
== END 2020-02-20 07:12 | disposition home or self-care (01) ==
LOC: ED 04:54
DX: R53.1 Weakness (principal); I48.91 Unspecified atrial fibrillation; E78.00 Pure hypercholesterolemia, unspecified
CPT/HCPCS: 36415; 80053; 80307; 80320; 80329; 82009; 82550; 83605; 83690; 83735; 83880; 84443; 84484; 85025; 85610; 85730; 93005; 96365; 99283; 99284; J3411; 82140

== ENCOUNTER 2020-03-11 19:57 | Emergency (ER) | payer OTHER, MEDICAID ==
--- NOTE | 2020-03-11 20:09 | ED Physician Documentation ---
History of Present Illness - Stated complaint Stated Complaint: RIGHT ANKLE PAIN - Chief complaint Chief Complaint: General - History obtained from History obtained from: Patient, Police - History of Present Illness Timing: Unknown Pain level max: 5 Pain level now: 4 - Additonal information Additional information: 59-year-old female brought in by police for fit for confinement. She states that she is still having pain to the right ankle. She states that she fractured this back in November. Worse with walking, better with rest. Is not in a splint, brace and was walking alongside the road without a limp. Patient has been drinking today. She is an alcoholic. Patient states that she is not following up with orthopedics. She states that she is concerned that the ankle is still hurting several months later. Denies any new injuries. 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 : None HEENT: None Psych: Depression Musculoskeletal: Chronic back pain Derm: None - Past Surgical History Past Surgical History: Yes Ortho: Spine surgery /AUTOMOTIVE BRAKE TECHNICIAN: section - Present Medications Home Medications: Ambulatory Orders Medication Instructions Recorded Confirmed DULoxetine [Cymbalta] 60 mg PO DAILY 10/11/18 02/06/20 busPIRone [Buspar] 15 mg PO BID 10/11/18 02/06/20 traZODone [Desyrel] 150 mg PO QPM 10/11/18 02/06/20 Meloxicam 15 mg PO DAILY 11/20/19 02/06/20 Alendronate [Fosamax] 70 mg PO FR 11/21/19 02/06/20 Furosemide 40 mg PO DAILY PRN 11/21/19 02/06/20 Metoprolol Succinate [Toprol Xl] 25 mg PO BID 11/21/19 02/06/20 SUMAtriptan succinate [Sumatriptan 6 mg SQ ONCE PRN 11/21/19 02/06/20 Succinate] Venlafaxine HCl 75 mg PO DAILY 11/21/19 02/06/20 Lactulose 10 gm PO TID #1 bottle 11/27/19 02/06/20 Vitamin [Trinatal Rx 1] 1 tab PO DAILYWM #30 tablet 11/27/19 02/06/20 Thiamine [Vitamin B-1] 100 mg PO DAILY #30 tablet 11/27/19 02/06/20 Baclofen 10 mg PO TID 02/06/20 02/06/20 Estrogens, Conjugated Cream 1 applic VG DAILY 02/06/20 02/06/20 [Premarin Cream] Gabapentin [Neurontin] 800 mg PO TID 02/06/20 02/06/20 SUMAtriptan succinate [Sumatriptan 100 mg PO DAILY PRN 02/06/20 02/06/20 Succinate] Albuterol Sulfate [Albuterol 8.5 gm IH Q4HR PRN #7 hfa.aer.ad 02/11/20 Sulfate Hfa] Cefpodoxime Proxetil [Vantin] 100 mg PO BID #5 tablet 02/11/20 Pantoprazole [Protonix] 40 mg PO QDAC #30 tablet 02/11/20 Vancomycin [Vancocin] 125 mg PO QID 7 Days #28 capsule 02/11/20 - Allergies Allergies/Adverse Reactions: Allergies Allergy/AdvReac Type Severity Reaction Status Date / Time pregabalin [From Lyrica] Allergy Hives Verified 03/11/20 20:02 adhesive tape AdvReac Rash Verified 03/11/20 20:02 Sulfa (Sulfonamide AdvReac Itching Verified 03/11/20 20:02 Antibiotics) - Social History Does the pt smoke?: No Smoking Status: Never smoker Does the pt drink ETOH?: Yes Does the pt have substance abuse?: No - Immunizations Immunizations are current?: Yes - POLST Patient has POLST: No POLST Status: Full Code PD ED PE NORMAL - Vitals Vital signs reviewed: Yes - General General: Alert and oriented X 3, No acute distress - HEENT HEENT: Atraumatic, PERRL, Moist mucous membranes - Neck Neck: Supple, no meningeal sign, No bony TTP - Cardiac Cardiac: RRR - Respiratory Respiratory: No respiratory distress, Clear bilaterally - Abdomen Abdomen: Soft, Non tender, Non distended - Derm Derm: Warm and dry - Extremities Extremities: Other (TTP R ankle over the lateral malleolus. NVI. mild swelling.) - Neuro Neuro: Alert and oriented X 3 Results - Vitals Vitals: Vital Signs - 24 hr 03/11/20 19:59 Temperature 36.2 C L Heart Rate 69 Respiratory 13 Rate Blood Pressure 131/85 H O2 Saturation 98 Oxygen O2 Source Room air - Rads (name of study) R ankle xray Radiology: Prelim report reviewed, EMP read contemporaneously, See rad report (Lateral malleolar fracture with overlying soft tissue edema ) PD MEDICAL DECISION MAKING - ED course Complexity details: reviewed results, re-evaluated patient, considered differential, d/w patient, d/w oncology consultant (Dr. Plummer (ortho)) ED course: Prior fracture was on the left ankle, not the right. X-ray today shows a right distal fibula fracture. D/w ortho and will place in walking boot and follow up in clinic. NVI. Patient counseled regarding signs and symptoms for which I believe and urgent re-evaluation would be necessary. Patient with good understanding of and agreement to plan and is comfortable going home at this time This document was made in part using voice recognition software. While efforts are made to proofread this document, sound alike and grammatical errors may occur. Departure - Departure Disposition: 01 Home, Self Care Clinical Impression: Alcoholism Closed right fibular fracture Qualifiers: Encounter type: initial encounter Fibula location: lateral malleolus Fracture alignment: nondisplaced Qualified Code(s): S82.64XA - Nondisplaced fracture of lateral malleolus of right fibula, initial encounter for closed fracture Condition: Good Instructions: ED Fx Lower Ext Follow-Up: [facility] [Provider Group] - Within 1 week Comments: You need to wear the walking boot until released by orthopedics. Follow-up with orthopedics within 1 week. Call for an appointment. You should also be placed on the alcohol withdrawal protocol while in halfway.
--- NOTE | 2020-03-11 21:05 | XRAY Report ---
PROCEDURE: Ankle 3 View RT INDICATIONS: fracture 4 months ago, continued pain TECHNIQUE: 3 views of the ankle were acquired. COMPARISON: None. FINDINGS: Lateral malleolus fracture with overlying soft tissue swelling. IMPRESSION: Lateral malleolar fracture with overlying soft tissue edema Reviewed by: Chuckie Brink MD on 03/11/2020 9:04 PM PDT Approved by: Chuckie Brink MD on 03/11/2020 9:04 PM PDT Station ID: [id number]
[2020-03-11 21:24] VITALS: BP 146/104
== END 2020-03-11 21:30 | disposition home or self-care (01) ==
LOC: ED 19:57
DX: S82.64XA Nondisplaced fracture of lateral malleolus of right fibula, initial encounter for closed fracture (principal); X58.XXXA Exposure to other specified factors, initial encounter; F10.20 Alcohol dependence, uncomplicated
CPT/HCPCS: 99282; 99283

== ENCOUNTER 2020-04-08 10:47 | Outpatient (CLI) | payer MEDICAID ==
[2020-04-08 18:16] LABS: BASOPHILS % (AUTO) 0.4 %; EOSINOPHILS % (AUTO) 4.1 %; HGB - HEMOGLOBIN 11.5 g/dL (12.0-16.0); LYMPHOCYTES % (AUTO) 48.1 %; MEAN CORPUSCULAR HEMOGLOBIN 36.1 pg (27.0-31.0); MEAN CORPUSCULAR HGB CONC 30.9 g/dL (32.0-36.0); MEAN CORPUSCULAR VOLUME 116.6 fL (81.0-99.0); MEAN PLATELET VOLUME 10.2 fL (7.9-10.8); MONOCYTES % (AUTO) 15.6 %; NEUTROPHILS % (AUTO) 31.8 %; PLT - PLATELET COUNT 176 10^3/uL (130-450); RED BLOOD COUNT 3.19 10^6/uL (4.20-5.40); RED CELL DISTRIBUTION WIDTH 13.4 % (12.0-15.0); WHITE BLOOD COUNT 2.7 x10^3/uL (4.8-10.8)
[2020-04-08 18:27] LABS: ABNORMAL LYMPHS % (MANUAL) 0 %
[2020-04-08 18:28] LABS: ALBUMIN 4.1 g/dL (3.2-5.5); ALBUMIN/GLOBULIN RATIO 1.4 (1.0-2.2); BILIRUBIN,TOTAL 0.5 mg/dL (0.2-1.0); CALCIUM 9.6 mg/dL (8.5-10.3); CREATININE 0.6 mg/dL (0.4-1.0)
[2020-04-08 18:51] LABS: THYROID STIMULATING HORMONE 1.2 uIU/mL (0.34-5.60)
[2020-04-08 18:52] LABS: FREE T3 3.71 pg/mL (2.5-3.9)
[2020-04-08 18:53] LABS: FREE T4 (FREE THYROXINE) 0.94 ng/dL (0.58-1.64)
[2020-04-08 19:33] LABS: BAND NEUTROPHILS % (MANUAL) 1 %; BASOPHILS % (MANUAL) 1 %; EOSINOPHILS # (MANUAL) 0.1 10^3/uL (0-0.7); LYMPHOCYTES # (MANUAL) 1.4 10^3/uL (1.5-3.5); LYMPHOCYTES % (MANUAL) 52 %; MONOCYTES # (MANUAL) 0.3 10^3/uL (0.0-1.0)
[2020-04-08 19:34] LABS: DIFFERENTIAL COMMENT MANUAL DIFFERENTIAL; PLATELET ESTIMATE, MANUAL NORMAL (130-450,000) (NORMAL); PLATELET MORPHOLOGY NORMAL APPEARANCE (NORMAL)
== END 2020-04-08 23:59 | disposition home or self-care (01) ==
LOC: LAB.WCP 10:47
PROVIDERS: ATTEND Family Medicine
DX: L65.9 Nonscarring hair loss, unspecified (principal); D61.818 Other pancytopenia; D64.9 Anemia, unspecified; I10 Essential (primary) hypertension
CPT/HCPCS: 36415; 80053; 84439; 84443; 84481; 85025

== ENCOUNTER 2020-06-22 16:31 | Outpatient (CLI) | payer MEDICAID ==
[2020-06-22 18:04] LABS: BASOPHILS % (AUTO) 0.8 %; EOSINOPHILS # (AUTO) 0.1 10^3/uL (0.0-0.7); EOSINOPHILS % (AUTO) 3.6 %; HGB - HEMOGLOBIN 13.2 g/dL (12.0-16.0); LYMPHOCYTES # (AUTO) 2.1 10^3/uL (1.5-3.5); LYMPHOCYTES % (AUTO) 54.5 %; MEAN CORPUSCULAR HGB CONC 32.9 g/dL (32.0-36.0); MEAN CORPUSCULAR VOLUME 103.4 fL (81.0-99.0); MEAN PLATELET VOLUME 9.6 fL (7.9-10.8); MONOCYTES # (AUTO) 0.3 10^3/uL (0.0-1.0); MONOCYTES % (AUTO) 6.5 %; NEUTROPHILS # (AUTO) 1.3 10^3/uL (1.5-6.6); NEUTROPHILS % (AUTO) 34.3 %; PLT - PLATELET COUNT 188 10^3/uL (130-450); RED BLOOD COUNT 3.88 10^6/uL (4.20-5.40); RED CELL DISTRIBUTION WIDTH 12.2 % (12.0-15.0); WHITE BLOOD COUNT 3.9 x10^3/uL (4.8-10.8)
[2020-06-22 18:28] LABS: ALBUMIN 4.4 g/dL (3.2-5.5); ALBUMIN/GLOBULIN RATIO 1.6 (1.0-2.2); BILIRUBIN,TOTAL 0.6 mg/dL (0.2-1.0); CALCIUM 9.7 mg/dL (8.5-10.3); CREATININE 0.6 mg/dL (0.4-1.0); TOTAL PROTEIN 7.1 g/dL (6.7-8.2)
[2020-06-22 18:42] LABS: FERRITIN 26.5 ng/mL (11.0-306.8)
== END 2020-06-22 23:59 | disposition home or self-care (01) ==
LOC: LAB.WCP 16:31
PROVIDERS: ATTEND Family Medicine
DX: E87.6 Hypokalemia (principal); K86.1 Other chronic pancreatitis; D61.818 Other pancytopenia; D64.9 Anemia, unspecified; R00.0 Tachycardia, unspecified; I10 Essential (primary) hypertension; F41.9 Anxiety disorder, unspecified; M62.830 Muscle spasm of back; F32.9 Major depressive disorder, single episode, unspecified
CPT/HCPCS: 36415; 80053; 82607; 82728; 82746; 83540; 84466; 85025

== ENCOUNTER 2020-07-20 21:51 | Emergency (ER) | payer MEDICAID ==
[2020-07-20] MEDS ORDERED: DEXAMETHASONE 10 MG/ML VIAL PO STA (23:05)
[2020-07-20] MEDS ORDERED: KETOROLAC 60 MG/2 ML VIAL IM STA (23:05)
[2020-07-20] MEDS ORDERED: CHERRY SYRUP 10 ML UDC PO ONE (23:05)
[2020-07-20] MEDS ORDERED: BUFFERED LIDOCAINE 10 ML SYRINGE SUBQ STA (23:09)
--- NOTE | 2020-07-20 23:11 | ED Physician Documentation ---
PD HPI BACK PAIN - Stated complaint Stated Complaint: BACK PX - Chief complaint Chief Complaint: Back Pain - History obtained from History obtained from: Patient - History of Present Illness Timing - onset: How many days ago (3) Timing - duration: Days (3) Timing - details: Gradual onset, Still present Location: Lower Quality: Pain, Spasm, Sharp, Similar to prior episodes Associated symptoms: No: Fever, Weakness, Numbness, Incontinent of urine, Unable to urinate, Hematuria, Incontinent of stool Improves with: Rest, Meds Worsened by: Movement Similar symptoms before: Diagnosis (chronic back pain) Recently seen: Not recently seen - Additional information Additional information: 60-year-old alcoholic female with chronic back pain uses a compounded formula containing ketamine baclofen nifedipine gabapentinAnd she has run out of this compounded medication will not get this in for about 2 more days. He usually uses this to her back 3 times per day she has had tremendous success with this. She has now out of this medicine and has severe pain in her back when I come into the room she is laying on her back with her knees up against her chest and remains in that position while I am talking to her. She is noted to have a laceration to the right scalp and a scratch to the right side of her neck. 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 : None HEENT: None Psych: Depression Musculoskeletal: Chronic back pain Derm: None - Past Surgical History Past Surgical History: Yes Ortho: Spine surgery /ANIMAL RESEARCHER: section - Present Medications Home Medications: Ambulatory Orders Medication Instructions Recorded Confirmed DULoxetine [Cymbalta] 60 mg PO DAILY 10/11/18 07/20/20 busPIRone [Buspar] 15 mg PO BID 10/11/18 07/20/20 traZODone [Desyrel] 150 mg PO QPM 10/11/18 07/20/20 Meloxicam 15 mg PO DAILY 11/20/19 07/20/20 Alendronate [Fosamax] 70 mg PO FR 11/21/19 07/20/20 Furosemide 40 mg PO DAILY PRN 11/21/19 07/20/20 Metoprolol Succinate [Toprol Xl] 25 mg PO BID 11/21/19 07/20/20 SUMAtriptan succinate [Sumatriptan 6 mg SQ ONCE PRN 11/21/19 07/20/20 Succinate] Venlafaxine HCl 75 mg PO DAILY 11/21/19 07/20/20 Vitamin [Trinatal Rx 1] 1 tab PO DAILYWM #30 tablet 11/27/19 07/20/20 Thiamine [Vitamin B-1] 100 mg PO DAILY #30 tablet 11/27/19 07/20/20 Baclofen 10 mg PO TID 02/06/20 07/20/20 Estrogens, Conjugated Cream 1 applic VG DAILY 02/06/20 07/20/20 [Premarin Cream] Gabapentin [Neurontin] 800 mg PO TID 02/06/20 07/20/20 SUMAtriptan succinate [Sumatriptan 100 mg PO DAILY PRN 02/06/20 07/20/20 Succinate] Albuterol Sulfate [Albuterol 8.5 gm IH Q4HR PRN #7 hfa.aer.ad 02/11/20 07/20/20 Sulfate Hfa] Cyclobenzaprine [Flexeril] 10 mg PO TID PRN #20 tab 07/20/20 Famotidine [Acid-Pep] 20 mg PO DAILY 07/20/20 07/20/20 HYDROcod/ACETAM 5/325 [[place] 5/325] 1 - 2 ea PO Q6H PRN #8 tab 07/20/20 - Allergies Allergies/Adverse Reactions: Allergies Allergy/AdvReac Type Severity Reaction Status Date / Time pregabalin [From Lyrica] Allergy Hives Verified 03/11/20 20:02 adhesive tape AdvReac Rash Verified 03/11/20 20:02 Sulfa (Sulfonamide AdvReac Itching Verified 03/11/20 20:02 Antibiotics) - Social History Does the pt smoke?: Yes Smoking Status: Current every day smoker Does the pt drink ETOH?: No Does the pt have substance abuse?: No - Immunizations Immunizations are current?: Yes - POLST Patient has POLST: No POLST Status: Full Code PD ED PE NORMAL - Vitals Vital signs reviewed: Yes (wide pulse pressure ) - General General: Alert and oriented X 3, Well developed/nourished - HEENT HEENT: PERRL, EOMI, Other (There is a laceration 2.5cm to the right rastafarian area in the hair. No crepitance or step off. ) - Neck Neck: Supple, no meningeal sign, No bony TTP, Other (scratch to the right side of the neck. ) - Respiratory Respiratory: No respiratory distress - Back Back: No CVA TTP, Other (there is firmness to the paraspinous muscles of the lumbar spine and tenderness to the L4/5 junction midline. ) - Derm Derm: Normal color, Warm and dry, No rash - Extremities Extremities: No deformity, No edema - Neuro Neuro: Alert and oriented X 3, display carver 2-12 intact, No motor deficit, No sensory deficit, Normal speech Eye Opening: Spontaneous Motor: Obeys Commands Verbal: Oriented GCS Score: 15 - Psych Psych: Normal mood, Normal affect Results - Vitals Vitals: Vital Signs - 24 hr 07/20/20 22:03 Temperature 36.6 C Heart Rate 71 Respiratory 19 Rate Blood Pressure 104/53 L O2 Saturation 98 Oxygen O2 Source Room air Procedures - Laceration (location) scalp Length in cm: 2.5 Wound type: Linear, Into subcut fat Neurovascular status: Sensory intact, Motor intact, Vascular intact Anesthesia: Lidocaine 1%, With bicarb Wound preparation: Hibiclens, Irrigated copiously NS, Wound explored, To the base Skin layer closure: Moffat Other: Patient tolerated well, No complications, Neurovascular intact, Dressing applied, Tetanus UTD PD MEDICAL DECISION MAKING - ED course Complexity details: reviewed old records, re-evaluated patient, considered differential, d/w patient ED course: 60-year-old female that uses a compounding cream to her back successfully has run out of her cream and she is now having severe back pain. She is administered dexamethasone and Toradol here in the emergency department and is able to straighten out and stand up in the emergency department having quite a bit of relief of her pain. Her scalp the right rastafarian is repaired with minh she has a scratch to her neck that is tender to with local wound care. Will provide pain medication muscle relaxant for 2 days time. Departure - Departure Disposition: 01 Home, Self Care Clinical Impression: Chronic back pain Qualifiers: Back pain location: low back pain Back pain laterality: midline Sciatica presence: without sciatica Qualified Code(s): M54.5 - Low back pain; G89.29 - Other chronic pain Scalp laceration Qualifiers: Encounter type: initial encounter Qualified Code(s): S01.01XA - Laceration without foreign body of scalp, initial encounter Condition: Stable Instructions: ED Laceration Scalp Stitch Or Stap, ED Chronic Pain Management Follow-Up: Royer Mathur MD [Primary Care Provider] - Prescriptions: Cyclobenzaprine [Flexeril] 10 mg PO TID PRN #20 tab PRN Reason: Spasms HYDROcod/ACETAM 5/325 [[place] 5/325] 1 - 2 ea PO Q6H PRN #8 tab PRN Reason: Pain
[2020-07-21 00:23] VITALS: BP 112/70
== END 2020-07-21 00:23 | disposition home or self-care (01) ==
LOC: ED 21:51
DX: G89.29 Other chronic pain (principal); M54.5 Low back pain; S01.01XA Laceration without foreign body of scalp, initial encounter; S10.91XA Abrasion of unspecified part of neck, initial encounter; F17.200 Nicotine dependence, unspecified, uncomplicated; F10.20 Alcohol dependence, uncomplicated
CPT/HCPCS: 12001; 96372; 99283; 99284; A9270

== ENCOUNTER 2020-07-22 15:16 | Outpatient (CLI) | payer MEDICAID | END 2020-07-22 15:17 | disposition critical access hospital (66) | LOC: EMS 15:16 | PROVIDERS: ATTEND Emergency Medicine | DX: S09.90XA Unspecified injury of head, initial encounter (principal); W18.39XA Other fall on same level, initial encounter; Y92.481 Parking lot as the place of occurrence of the external cause | CPT/HCPCS: A0425; A0429; A0999 ==

== ENCOUNTER 2020-07-22 15:19 | Emergency (ER) | payer MEDICAID ==
[2020-07-22] MEDS ORDERED: SODIUM CHLORIDE 0.9% 1,000 ML IV STA (15:50)
--- NOTE | 2020-07-22 16:01 | ED Physician Documentation ---
History of Present Illness - Stated complaint Stated Complaint: ETOH - Chief complaint Chief Complaint: MHE - Additonal information Additional information: 60-year-old female who has a history of chronic alcoholism is brought into the emergency department by local police department after being intoxicated and being found down on the ground after a fall when walking into a grocery store. This was wittnessed by a deputy who brought her into the ED Patient reports that she has pain in the right side of her head. She points to where she had minh placed 2 nights ago after another fall. She is currently in a rigid cervical collar. Patient is alert and tearful. Apologizes continuously for her alcoholism. She denies pain elsewhere. 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 : None HEENT: None Psych: Depression Musculoskeletal: Chronic back pain Derm: None - Past Surgical History Past Surgical History: Yes Ortho: Spine surgery /BURR MACHINE OPERATOR: section - Present Medications Home Medications: Ambulatory Orders Medication Instructions Recorded Confirmed DULoxetine [Cymbalta] 60 mg PO DAILY 10/11/18 07/20/20 busPIRone [Buspar] 15 mg PO BID 10/11/18 07/20/20 traZODone [Desyrel] 150 mg PO QPM 10/11/18 07/20/20 Meloxicam 15 mg PO DAILY 11/20/19 07/20/20 Alendronate [Fosamax] 70 mg PO FR 11/21/19 07/20/20 Furosemide 40 mg PO DAILY PRN 11/21/19 07/20/20 Metoprolol Succinate [Toprol Xl] 25 mg PO BID 11/21/19 07/20/20 SUMAtriptan succinate [Sumatriptan 6 mg SQ ONCE PRN 11/21/19 07/20/20 Succinate] Venlafaxine HCl 75 mg PO DAILY 11/21/19 07/20/20 Vitamin [Trinatal Rx 1] 1 tab PO DAILYWM #30 tablet 11/27/19 07/20/20 Thiamine [Vitamin B-1] 100 mg PO DAILY #30 tablet 11/27/19 07/20/20 Baclofen 10 mg PO TID 02/06/20 07/20/20 Estrogens, Conjugated Cream 1 applic VG DAILY 02/06/20 07/20/20 [Premarin Cream] Gabapentin [Neurontin] 800 mg PO TID 02/06/20 07/20/20 SUMAtriptan succinate [Sumatriptan 100 mg PO DAILY PRN 02/06/20 07/20/20 Succinate] Albuterol Sulfate [Albuterol 8.5 gm IH Q4HR PRN #7 hfa.aer.ad 02/11/20 07/20/20 Sulfate Hfa] Cyclobenzaprine [Flexeril] 10 mg PO TID PRN #20 tab 07/20/20 Famotidine [Acid-Pep] 20 mg PO DAILY 07/20/20 07/20/20 HYDROcod/ACETAM 5/325 [[place] 5/325] 1 - 2 ea PO Q6H PRN #8 tab 07/20/20 - Allergies Allergies/Adverse Reactions: Allergies Allergy/AdvReac Type Severity Reaction Status Date / Time pregabalin [From Lyrica] Allergy Hives Verified 07/22/20 15:35 adhesive tape AdvReac Rash Verified 07/22/20 15:35 Sulfa (Sulfonamide AdvReac Itching Verified 07/22/20 15:35 Antibiotics) - Social History Does the pt smoke?: Yes Smoking Status: Current every day smoker Does the pt drink ETOH?: No Does the pt have substance abuse?: No - Immunizations Immunizations are current?: Yes - POLST Patient has POLST: No POLST Status: Full Code PD ED PE EXPANDED - General General: Alert, Other (tearful, crying) - HEENT HEENT: Other (Right frontal scalp laceration is well approximated with multiple minh in place. No surrounding erythema or drainage.) - Neck Neck: Supple w/out meningeal sx, Other (Patient is in a rigid cervical collar.) - Cardiac Cardiac: Regular Rate, Regular Rhythm, Radial strong equal, Pedal strong equal, Cap refill < 2 sec. No: Murmur Present - Respiratory Respiratory: Clear to ausultation los. No: Distress, Labored - Abdomen Abdomen: Normal Bowel sounds. No: Hyperactive BS, Tender to palpation - Back Back: No: Vertebral tenderness - Derm Derm: Normal color, Warm and dry, Pale - Extremities Extremities: Normal. No: Deformity, Tenderness - Neuro Neuro: Alert and Oriented X 3, CNII-XII intact. No: Confused, Disoriented - GCS Eye Opening: Spontaneous Motor: Obeys Commands Verbal: Oriented Total: 15 Results - Vitals Vitals: Vital Signs - 24 hr 07/22/20 07/22/20 15:27 17:58 Temperature 37.4 C 36.7 C Heart Rate 59 L 69 Respiratory 18 18 Rate Blood Pressure 135/85 H 117/66 O2 Saturation 99 97 Oxygen O2 Source Room air - Labs Labs: Laboratory Tests 07/22/20 07/22/20 16:50 16:50 WBC 8.3 RBC 4.31 Hgb 14.3 Hct 43.6 MCV 101.2 H MCH 33.2 H MCHC 32.8 RDW 13.3 Plt Count 221 MPV 9.4 Neut # (Auto) 3.9 Lymph # (Auto) 4.0 H Coffee # (Auto) 0.3 Eos # (Auto) 0.0 Baso # (Auto) 0.0 Absolute Nucleated RBC 0.00 Nucleated RBC % 0.0 Sodium 142 Potassium 4.7 Chloride 101 Carbon Dioxide 27 Anion Gap 14.0 H BUN 20 Creatinine 0.7 Estimated GFR (MDRD) 86 L Glucose 88 Calcium 9.5 Total Bilirubin 1.3 H AST 32 ALT 16 Alkaline Phosphatase 88 Total Protein 7.5 Albumin 4.7 Globulin 2.8 Albumin/Globulin Ratio 1.7 Lipase 19 L Ethyl Alcohol 341.2 - Rads (name of study) CT head Radiology: Final report received (No acute process) CT neck Radiology: Final report received (No fracture. No acute osseous lesion. 1.2 cm sclerotic lesion in the T3 vertebral body which could represent a bone island or sclerotic neoplastic process) PD MEDICAL DECISION MAKING - ED course Complexity details: reviewed results, re-evaluated patient ED course: 60-year-old female presents the emergency department intoxicated after ground- level fall that was witnessed by a local constable. She was visibly intoxicated and smelled heavily of alcohol. On presentation she complained of a headache and neck pain. Screening labs reveal no acute blood count or electrolyte abnormality though she is quite intoxicated with a blood glucose alcohol of 342. CT of the head showed no acute fractures or bleeds. CT of the neck did not show any acute findings. However there is an incidental finding of a sclerotic lesion in the T3 vertebral body. After about an hour and a half or 2 hours in the emergency department patient had begun to sober up was alert and ambulatory on her own. However given the inclement weather I am concerned about her leaving the emergency department without assistance. She is insistent that she be allowed to leave therefore we have contacted her parents who will be arriving to the emergency department to escort her home. Pt can not be compelled to stay in the ED and denies thoughts of harm to herself or others. The sclerotic lesion of T3 was discussed with the patient and will be written in discharge instructions. She is advised to follow-up closely with her primary doctor for MRI imaging. I was notified by the primary nurse that when patient was brought to the front of the hospital for discharge it was her boyfriend who arrived. Per the Cons table who initially saw the patient he had been drinking. However the patient and her boyfriend got in an argument and patient did not leave with him. She was brought back to the emergency department to await a more suitable transportation home. However patient became agitated and adamant that she be allowed to leave. She appeared much more coherent and sober than when she initially arrived. The did not have grounds to hold her against her will and she left the emergency department at the ambulance bay doors. Departure - Departure Disposition: 01 Home, Self Care Clinical Impression: ETOH abuse, Vertebral anomaly Fall Qualifiers: Encounter type: initial encounter Qualified Code(s): W19.XXXA - Unspecified fall, initial encounter Condition: Stable Record reviewed to determine appropriate education?: Yes Follow-Up: Royer Mathur MD [Primary Care Provider] - Comments: Angélica russ were seen in the emergency department today after a fall while intoxicated. The CT of your head did not show anything worrisome. Your neck shows no fractures. As we discussed the third thoracic vertebral body has what is called a sclerotic lesion. This can be a very benign finding however in the long-term you likely need a CT of your chest or an MRI of your thoracic spine to further evaluate this. Please discuss this with Dr. Rosales. It is important in the long-term that you begin to abstain from alcohol. Discharge Date/Time: 07/22/20 18:23
--- NOTE | 2020-07-22 16:26 | CT Report ---
PROCEDURE: HEAD WO INDICATIONS: intoxicated fall TECHNIQUE: Noncontrast 4.5 mm thick angled axial sections acquired from the foramen magnum to the vertex. For r adiation dose reduction, the following was used: automated exposure control, adjustment of mA and/or kV according to patient size. COMPARISON: None. FINDINGS: Image quality: Excellent. CSF spaces: Basal cisterns are patent. No extra-axial fluid collections. Ventricles are normal in size and shape. Brain: No midline shift. No intracranial masses or hemorrhage. Herrera-white matter interface is norm al. Skull and face: Calvarium and visualized facial bones are intact, without suspicious lesions. Left f rontotemporal scalp is skin minh. Sinuses: Visualized sinuses and mastoids are clear. IMPRESSION: No acute intracranial disease process. Reviewed by: Ani Villa MD, PhD on 07/22/2020 4:25 PM PST Approved by: Ani Villa MD, PhD on 07/22/2020 4:25 PM PST Station ID: [id number]
--- NOTE | 2020-07-22 16:34 | CT Report ---
PROCEDURE: CERVICAL SPINE WO INDICATIONS: intoxicated fall TECHNIQUE: Noncontrast 3 mm thick sections acquired from the skull base to the T4 level. Sagittal and coronal r eformats were then constructed. For radiation dose reduction, the following was used: automated exp osure control, adjustment of mA and/or kV according to patient size. COMPARISON: 11/20/2019, 02/26/2019 and 10/03/2018. FINDINGS: Image quality: Excellent. Bones: No fractures or dislocations. Visualized superior ribs are intact. 1.2 cm sclerotic lesion n oted in the T3 vertebral body which could represent a bone island or sclerotic metastatic lesion. Les ion is stable compared to 11/20/2019. Spine degenerative disc disease and facet arthropathy are noted. Soft tissues: Prevertebral soft tissues are normal in thickness. No paravertebral hematomas. No ap ical pneumothoraces. IMPRESSION: 1. No fracture. No acute osseous lesion. If there is continued clinical concern for pathology, then M RI should be considered for further evaluation. 2. 1.2 cm sclerotic lesion in the T3 vertebral body which could represent bone island or sclerotic ne oplastic process including metastatic disease. Recommend correlation with clinical data and if clinic ally indicated whole-body nuclear medicine bone scan for additional evaluation. Reviewed by: Ani Villa MD, PhD on 07/22/2020 4:33 PM PST Approved by: Ani Villa MD, PhD on 07/22/2020 4:33 PM PST Station ID: [id number]
[2020-07-22 16:56] LABS: BASOPHILS % (AUTO) 0.4 %; EOSINOPHILS % (AUTO) 0.5 %; HGB - HEMOGLOBIN 14.3 g/dL (12.0-16.0); LYMPHOCYTES % (AUTO) 47.7 %; MEAN CORPUSCULAR HEMOGLOBIN 33.2 pg (27.0-31.0); MEAN CORPUSCULAR HGB CONC 32.8 g/dL (32.0-36.0); MEAN CORPUSCULAR VOLUME 101.2 fL (81.0-99.0); MEAN PLATELET VOLUME 9.4 fL (7.9-10.8); MONOCYTES # (AUTO) 0.3 10^3/uL (0.0-1.0); MONOCYTES % (AUTO) 3.9 %; NEUTROPHILS # (AUTO) 3.9 10^3/uL (1.5-6.6); NEUTROPHILS % (AUTO) 47.4 %; PLT - PLATELET COUNT 221 10^3/uL (130-450); RED BLOOD COUNT 4.31 10^6/uL (4.20-5.40); RED CELL DISTRIBUTION WIDTH 13.3 % (12.0-15.0); WHITE BLOOD COUNT 8.3 x10^3/uL (4.8-10.8)
[2020-07-22 17:20] LABS: ALBUMIN 4.7 g/dL (3.2-5.5); ALBUMIN/GLOBULIN RATIO 1.7 (1.0-2.2); BILIRUBIN,TOTAL 1.3 mg/dL (0.2-1.0); CALCIUM 9.5 mg/dL (8.5-10.3); CREATININE 0.7 mg/dL (0.4-1.0); TOTAL PROTEIN 7.5 g/dL (6.7-8.2)
[2020-07-22 17:59] VITALS: BP 117/66
== END 2020-07-22 18:23 | disposition home or self-care (01) ==
LOC: EDUNIT# → ED 15:19
DX: F10.129 Alcohol abuse with intoxication, unspecified (principal); Y90.8 Blood alcohol level of 240 mg/100 ml or more; R93.7 Abnormal findings on diagnostic imaging of other parts of musculoskeletal system; S01.01XD Laceration without foreign body of scalp, subsequent encounter; I10 Essential (primary) hypertension; F17.200 Nicotine dependence, unspecified, uncomplicated
CPT/HCPCS: 36415; 80053; 80320; 83690; 85025; 99281; 99284

== ENCOUNTER 2020-12-20 20:29 | Emergency (ER) | payer MEDICAID ==
--- NOTE | 2020-12-20 21:09 | ED Physician Documentation ---
PD HPI LOWER EXT INJURY - Stated complaint Stated Complaint: RT ANKLE PX/SWELLING - Chief complaint Chief Complaint: Ext Problem - History obtained from History obtained from: Patient - Additional information Additional information: Patient comes emergency department chief complaint of right in the ensuing hours. Patient denies a known history of fracture, though she does state that she has had to wear a walking boot on that side previously. She is already seeing Dr. Sinclair of orthopedics at [facility] for her other ankle, which also has problems and she states is likely going to need surgery. She denies any other injuries or complaints. Pain and swelling for the last couple of days. Patient states she cannot think of any specific injury other than that she jumped on top of a shovel while gardening and that she has osteoporosis. She did not think too much of the incident but began to notice pain and swelling of the lateral malleolus in the ensuing hours. Patient states it hurts to bear weight. Review of Systems Ten Systems: 10 systems reviewed and negative Constitutional: reports: Reviewed and negative Eyes: reports: Reviewed and negative Ears: reports: Reviewed and negative Nose: reports: Reviewed and negative Throat: reports: Reviewed and negative Cardiac: reports: Reviewed and negative Respiratory: reports: Reviewed and negative GI: reports: Reviewed and negative : reports: Reviewed and negative Skin: reports: Reviewed and negative Musculoskeletal: reports: Joint pain, Joint swelling, Pain with weight bearing Neurologic: reports: Reviewed and negative Psychiatric: reports: Reviewed and negative Endocrine: reports: Reviewed and negative Immunocompromised: reports: Reviewed and negative PD PAST MEDICAL HISTORY - Past Medical History Cardiovascular: Hypertension, High cholesterol Respiratory: None Neuro: None Endocrine/Autoimmune: None GI: None 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 : None HEENT: None Psych: Depression Musculoskeletal: Chronic back pain Derm: None - Past Surgical History Past Surgical History: Yes Ortho: Spine surgery /NEEDLE LOOM TENDER: section - Present Medications Home Medications: Ambulatory Orders Medication Instructions Recorded Confirmed DULoxetine [Cymbalta] 60 mg PO DAILY 10/11/18 07/20/20 busPIRone [Buspar] 15 mg PO BID 10/11/18 07/20/20 traZODone [Desyrel] 150 mg PO QPM 10/11/18 07/20/20 Meloxicam 15 mg PO DAILY 11/20/19 07/20/20 Alendronate [Fosamax] 70 mg PO FR 11/21/19 07/20/20 Furosemide 40 mg PO DAILY PRN 11/21/19 07/20/20 Metoprolol Succinate [Toprol Xl] 25 mg PO BID 11/21/19 07/20/20 SUMAtriptan succinate [Sumatriptan 6 mg SQ ONCE PRN 11/21/19 07/20/20 Succinate] Venlafaxine HCl 75 mg PO DAILY 11/21/19 07/20/20 Vitamin [Trinatal Rx 1] 1 tab PO DAILYWM #30 tablet 11/27/19 07/20/20 Thiamine [Vitamin B-1] 100 mg PO DAILY #30 tablet 11/27/19 07/20/20 Baclofen 10 mg PO TID 02/06/20 07/20/20 Estrogens, Conjugated Cream 1 applic VG DAILY 02/06/20 07/20/20 [Premarin Cream] Gabapentin [Neurontin] 800 mg PO TID 02/06/20 07/20/20 SUMAtriptan succinate [Sumatriptan 100 mg PO DAILY PRN 02/06/20 07/20/20 Succinate] Albuterol Sulfate [Albuterol 8.5 gm IH Q4HR PRN #7 hfa.aer.ad 02/11/20 07/20/20 Sulfate Hfa] Cyclobenzaprine [Flexeril] 10 mg PO TID PRN #20 tab 07/20/20 Famotidine [Acid-Pep] 20 mg PO DAILY 07/20/20 07/20/20 HYDROcod/ACETAM 5/325 [Plains 5/325] 1 - 2 ea PO Q6H PRN #8 tab 07/20/20 HYDROcod/ACETAM 5/325 [Plains 5/325] 1 - 2 tablet PO Q6H PRN #10 tablet 12/20/20 - Allergies Allergies/Adverse Reactions: Allergies Allergy/AdvReac Type Severity Reaction Status Date / Time pregabalin [From Lyrica] Allergy Hives Verified 12/20/20 20:31 adhesive tape AdvReac Rash Verified 12/20/20 20:31 Sulfa (Sulfonamide AdvReac Itching Verified 12/20/20 20:31 Antibiotics) - Social History Does the pt smoke?: Yes Smoking Status: Current every day smoker Does the pt drink ETOH?: No Does the pt have substance abuse?: No - Immunizations Immunizations are current?: Yes - POLST Patient has POLST: No POLST Status: Full Code PD ED PE NORMAL - Vitals Vital signs reviewed: Yes - General General: Alert and oriented X 3, No acute distress - HEENT HEENT: Atraumatic, PERRL, EOMI, Moist mucous membranes - Neck Neck: Supple, no meningeal sign - Cardiac Cardiac: Strong equal pulses - Respiratory Respiratory: No respiratory distress - Derm Derm: Normal color, Warm and dry, No rash - Extremities Extremities: No deformity, Other (Edema over right lateral malleolus without contusion. Point tenderness noted. No limitation of range of motion. No tenderness over proximal fibula.) - Neuro Neuro: Alert and oriented X 3, pitch gatherer 2-12 intact, No motor deficit, No sensory deficit, Normal speech - Psych Psych: Normal mood, Normal affect Results - Vitals Vitals: Vital Signs - 24 hr 12/20/20 12/20/20 20:31 21:43 Temperature 36.6 C 36.6 C Heart Rate 85 74 Respiratory 16 16 Rate Blood Pressure 125/80 110/64 O2 Saturation 98 98 Oxygen O2 Source Room air - Rads (name of study) XR R ankle Radiology: Final report received, EMP read indepedently, See rad report (Acute versus chronic right fibular fracture. Recommended immobilization for about 2 weeks, then re-x-ray.) Procedures - Splint (location) R ankle Splint applied by: Tech Type of splint: Fiberglass, Posterior, Stirrup Other: Patient tolerated well, No complications, Neurovascular intact, Good alignment, Crutches provided PD MEDICAL DECISION MAKING - ED course Complexity details: reviewed results, re-evaluated patient, considered differential, d/w patient ED course: I discussed with the patient that her right ankle x-ray peers did show a fracture of the distal fibula, though it is not clear whether this is acute or chronic. The radiologist interpretation is pending at this time. Discussed with patient we will place her in a splint for a pair of crutches. She should follow-up with Dr. Sinclair, who is her orthopedist through [facility], and I have advised her to call tomorrow to make an appointment for within the next calendar week for follow-up. Departure - Departure Disposition: 01 Home, Self Care Clinical Impression: Fracture of distal end of fibula Qualifiers: Encounter type: initial encounter Fracture type: closed Fracture morphology: unspecified fracture morphology Laterality: right Qualified Code(s): S82.831A - Other fracture of upper and lower end of right fibula, initial encounter for closed fracture Condition: Stable Instructions: ED Fx Lower Ext Prescriptions: HYDROcod/ACETAM 5/325 [Plains 5/325] 1 - 2 tablet PO Q6H PRN #10 tablet PRN Reason: Pain Comments: Please keep your foot in ankle in the splint and do not bear weight. You should use the crutches at all times while getting up and around. Please elevate your foot by at least propping it up on a chair at the couch whenever you are down. You should call your orthopedist office first thing tomorrow morning to make an appointment to be seen within the next calendar week. Use ibuprofen and Tylenol as needed, or you may substitute the stronger pain medication for the Tylenol if needed. Discharge Date/Time: 12/20/20 22:27
--- NOTE | 2020-12-20 21:11 | XRAY Report ---
PROCEDURE: Ankle 3 View RT INDICATIONS: Trauma TECHNIQUE: 3 views of the ankle were acquired. COMPARISON: 03/11/2020 FINDINGS: Bones: Persistent visualization of mildly displaced oblique fracture of the right lateral malleolus. There is bridging callus formation posteriorly. No definite acute fracture seen. Alignment is anatomi c. Ankle mortise is normally aligned. No suspicious bony lesions. Soft tissues: No tibiotalar joint effusion. Achilles tendon appears normal. Moderate lateral malle olus soft tissue swelling. IMPRESSION: Moderate lateral malleolar soft tissue swelling with persistent visualization of oblique fracture line involving the lateral malleolus seen on comparison study of 03/11/2020. There appears t o be bridging callus formation over the cortex posteriorly. No definite acute fracture seen. Recommend immobilization and repeat imaging in 10-14 days given history of recurrent trauma. Reviewed by: Kvng Tavarez MD on 12/20/2020 9:10 PM PDT Approved by: Kvng Tavarez MD on 12/20/2020 9:10 PM PDT Station ID: [id number]
[2020-12-20 21:45] VITALS: BP 110/64
== END 2020-12-20 22:27 | disposition home or self-care (01) ==
LOC: ED 20:29
DX: S82.831A Other fracture of upper and lower end of right fibula, initial encounter for closed fracture (principal); X58.XXXA Exposure to other specified factors, initial encounter; I10 Essential (primary) hypertension; F17.200 Nicotine dependence, unspecified, uncomplicated
CPT/HCPCS: 29515; 84550; 99284

== ENCOUNTER 2021-01-24 08:00 | Outpatient (CLI) | payer MEDICAID | END 2021-01-24 23:59 | disposition home or self-care (01) | LOC: LAB.N 08:00 | PROVIDERS: ATTEND Physician Assistant Medical | DX: R53.83 Other fatigue (principal); R53.81 Other malaise; Z20.822 Contact with and (suspected) exposure to COVID-19 | CPT/HCPCS: 87070 ==

== ENCOUNTER 2021-04-03 13:13 | Emergency (ER) | payer MEDICAID ==
[2021-04-03 13:52] LABS: BILIRUBIN,URINE NEGATIVE (NEGATIVE); GLUCOSE, URINE (UA) NEGATIVE (NEGATIVE); KETONES,URINE (UA) NEGATIVE (NEGATIVE); LEUKOCYTE ESTERASE, URINE LARGE (NEGATIVE); NITRITE,URINE POSITIVE (NEGATIVE); OCCULT BLOOD,URINE TRACE-INTA (NEGATIVE); PROTEIN,URINE NEGATIVE (NEGATIVE); UROBILINOGEN,URINE 0.2 (NORMAL) E.U./dL (NORMAL)
[2021-04-03 13:56] LABS: CLARITY,URINE SL. CLOUDY (CLEAR)
[2021-04-03 14:11] LABS: BACTERIA,URINE Many /HPF (None Seen); RBC,URINE None Seen /HPF (0-5); SQUAMOUS EPITHELIAL CELL,UR MOD Squamous (<= Few); WBC,URINE >25 /HPF (0-5)
[2021-04-03 14:12] LABS: YEAST,URINE PRESENT
--- NOTE | 2021-04-03 15:24 | XRAY Report ---
PROCEDURE: Toe(s) LT INDICATIONS: great toe inj TECHNIQUE: 3 views of the left first toe(s) acquired. COMPARISON: None FINDINGS: Bones: No fractures or dislocations. No suspicious bony lesions. Soft tissues: No suspicious soft tissue densities. IMPRESSION: No fracture. No osseous lesion. If there are persistent symptoms or continued clinical concern for pa thology, then repeat plain film radiographs (7-10 days) or advanced imaging (CT, MR, bone scan) shoul d be considered for further evaluation. Reviewed by: Ani Villa MD, PhD on 04/03/2021 3:22 PM PDT Approved by: Ani Villa MD, PhD on 04/03/2021 3:22 PM PDT Station ID: [id number]
--- NOTE | 2021-04-03 15:28 | ED Physician Documentation ---
PD HPI FEMALE - Stated complaint Stated Complaint: FEMALE - Chief complaint Chief Complaint: UTI - History obtained from History obtained from: Patient - Additional information Additional information: 60-year-old woman presents with 2 complaints, first is that a few days ago she dropped a paint can on her right great toe and has persistent pain there, better while wearing shoes. She also notes that for a day or 2 she has had dysuria and frequency without flank pain or fevers. Wonders if she might have a bladder infection. 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 : None HEENT: None Psych: Depression Musculoskeletal: Chronic back pain Derm: None - Past Surgical History Past Surgical History: Yes Ortho: Spine surgery /SENIOR IT AUDITOR: section - Present Medications Home Medications: Ambulatory Orders Medication Instructions Recorded Confirmed DULoxetine [Cymbalta] 60 mg PO DAILY 10/11/18 07/20/20 busPIRone [Buspar] 15 mg PO BID 10/11/18 07/20/20 traZODone [Desyrel] 150 mg PO QPM 10/11/18 07/20/20 Meloxicam 15 mg PO DAILY 11/20/19 07/20/20 Alendronate [Fosamax] 70 mg PO FR 11/21/19 07/20/20 Furosemide 40 mg PO DAILY PRN 11/21/19 07/20/20 Metoprolol Succinate [Toprol Xl] 25 mg PO BID 11/21/19 07/20/20 SUMAtriptan succinate [Sumatriptan 6 mg SQ ONCE PRN 11/21/19 07/20/20 Succinate] Venlafaxine HCl 75 mg PO DAILY 11/21/19 07/20/20 Vitamin [Trinatal Rx 1] 1 tab PO DAILYWM #30 tablet 11/27/19 07/20/20 Thiamine [Vitamin B-1] 100 mg PO DAILY #30 tablet 11/27/19 07/20/20 Baclofen 10 mg PO TID 02/06/20 07/20/20 Estrogens, Conjugated Cream 1 applic VG DAILY 02/06/20 07/20/20 [Premarin Cream] Gabapentin [Neurontin] 800 mg PO TID 02/06/20 07/20/20 SUMAtriptan succinate [Sumatriptan 100 mg PO DAILY PRN 02/06/20 07/20/20 Succinate] Albuterol Sulfate [Albuterol 8.5 gm IH Q4HR PRN #7 hfa.aer.ad 02/11/20 07/20/20 Sulfate Hfa] Cyclobenzaprine [Flexeril] 10 mg PO TID PRN #20 tab 07/20/20 Famotidine [Acid-Pep] 20 mg PO DAILY 07/20/20 07/20/20 HYDROcod/ACETAM 5/325 [[place] 5/325] 1 - 2 ea PO Q6H PRN #8 tab 07/20/20 HYDROcod/ACETAM 5/325 [[place] 5/325] 1 - 2 tablet PO Q6H PRN #10 tablet 12/20/20 Nitrofurantoin [Macrobid] 1 cap PO BID #10 cap 04/03/21 - Allergies Allergies/Adverse Reactions: Allergies Allergy/AdvReac Type Severity Reaction Status Date / Time pregabalin [From Lyrica] Allergy Hives Verified 04/03/21 13:32 adhesive tape AdvReac Rash Verified 04/03/21 13:32 Sulfa (Sulfonamide AdvReac Itching Verified 04/03/21 13:32 Antibiotics) - Social History Does the pt smoke?: Yes Smoking Status: Current every day smoker Does the pt drink ETOH?: No Does the pt have substance abuse?: No - Immunizations Immunizations are current?: Yes - POLST Patient has POLST: No POLST Status: Full Code PD ED PE NORMAL - Vitals Vital signs reviewed: Yes - General General: Alert and oriented X 3, No acute distress - Abdomen Abdomen: Soft, Non tender - Back Back: No CVA TTP - Extremities Extremities: Other (Bruising and swelling about the right great toe without subungual hematoma) - Neuro Neuro: Alert and oriented X 3, Normal speech - Psych Psych: Normal mood, Normal affect Results - Vitals Vitals: Vital Signs - 24 hr 04/03/21 13:30 Temperature 37.2 C Heart Rate 84 Respiratory 16 Rate Blood Pressure 153/107 H O2 Saturation 98 Oxygen O2 Source Room air - Labs Labs: Laboratory Tests 04/03/21 13:33 Urine Color YELLOW Urine Clarity SL. CLOUDY Urine pH 7.0 Ur Specific [place] 1.015 Urine Protein NEGATIVE Urine Glucose (UA) NEGATIVE Urine Ketones NEGATIVE Urine Occult Blood TRACE-INTA Urine Nitrite POSITIVE H Urine Bilirubin NEGATIVE Urine Urobilinogen 0.2 (NORMAL) Ur Leukocyte Esterase LARGE H Urine RBC None Seen Urine WBC >25 H Ur Squamous Epith Cells MOD Squamous H Urine Bacteria Many H Urine Yeast PRESENT Ur Microscopic Review INDICATED Urine Culture Comments NOT INDICATED - Rads (name of study) X-ray of the right great toe interpreted contemporaneously by me, radiologist read was without fracture, I suspect there is a nondisplaced fr acture of Radiology: EMP read contemporaneously (X-ray of the right great toe interpreted contemporaneously by me, radiologist read was without fracture, I suspect there is a nondisplaced fracture of the proximal phalanx.) PD MEDICAL DECISION MAKING - ED course ED course: 60-year-old woman who I believe has a toe fracture despite the radiologist read of negative x-ray. That said the conservative nature of the management of this was discussed with the patient. She also has a bladder infection. Departure - Departure Disposition: 01 Home, Self Care Clinical Impression: Cystitis Toe fracture, right Qualifiers: Encounter type: initial encounter Toe: great toe Fracture type: closed Phalanx: proximal Fracture alignment: nondisplaced Qualified Code(s): S92.414A - Nondisplaced fracture of proximal phalanx of right great toe, initial encounter for closed fracture Condition: Good Record reviewed to determine appropriate education?: Yes Instructions: ED UTI Cystitis Female Prescriptions: Nitrofurantoin [Macrobid] 1 cap PO BID #10 cap Comments: For the toe, you can simply keep it supported in closed shoes or tape it together with the next toe. You can expect the pain to last for probably 6 to 8 weeks. For the bladder infection drink plenty water and return if worsening or if you develop fever or pain of your kidney.
[2021-04-03 15:43] VITALS: BP 126/94
== END 2021-04-03 15:43 | disposition home or self-care (01) ==
LOC: ED 13:13
DX: S92.414A Nondisplaced fracture of proximal phalanx of right great toe, initial encounter for closed fracture (principal); W22.8XXA Striking against or struck by other objects, initial encounter; N30.90 Cystitis, unspecified without hematuria; I10 Essential (primary) hypertension; F17.200 Nicotine dependence, unspecified, uncomplicated
CPT/HCPCS: 73660; 81001; 81003; 87086; 99283; 99284

== ENCOUNTER 2021-05-30 13:01 | Emergency (ER) | payer MEDICAID ==
[2021-05-30 13:10] VITALS: BP 144/81
--- NOTE | 2021-05-30 13:50 | XRAY Report ---
PROCEDURE: Chest 1 View X-Ray INDICATIONS: chest pain TECHNIQUE: One view of the chest was acquired. COMPARISON: 02/06/2020 FINDINGS: Surgical changes and devices: None. Lungs and pleura: No pleural effusions or pneumothorax. Lungs are clear. Mediastinum: Mediastinal contours appear normal. Heart size is normal. Bones and chest wall: No suspicious bony lesions. Overlying soft tissues appear unremarkable. IMPRESSION: Normal chest. Reviewed by: Germaine Maya MD on 05/30/2021 1:49 PM PST Approved by: Germaine Maya MD on 05/30/2021 1:49 PM [facility] [[email or web address]] Station ID: [id number]
--- NOTE | 2021-05-30 13:59 | ED Physician Documentation ---
History of Present Illness - Stated complaint Stated Complaint: CONGESTION,COUGH,FEVER,SORE THROAT - Chief complaint Chief Complaint: Heent - Additonal information Additional information: 61-year-old female presents emergency department for evaluation of cough and congestion that began about 4 days ago. Fever up to 101. This followed getting her COVID-19 booster. She reports a productive cough typically yellow phlegm. Denies any exertional chest pain. States her cough is worse when laying supine at night. She is concerned that she could have pneumonia. 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 : None HEENT: None Psych: Depression Musculoskeletal: Chronic back pain Derm: None - Past Surgical History Past Surgical History: Yes Ortho: Spine surgery /MACHINE TURNER: section - Present Medications Home Medications: Ambulatory Orders Medication Instructions Recorded Confirmed DULoxetine [Cymbalta] 60 mg PO DAILY 10/11/18 07/20/20 busPIRone [Buspar] 15 mg PO BID 10/11/18 07/20/20 traZODone [Desyrel] 150 mg PO QPM 10/11/18 07/20/20 Meloxicam 15 mg PO DAILY 11/20/19 07/20/20 Alendronate [Fosamax] 70 mg PO FR 11/21/19 07/20/20 Furosemide 40 mg PO DAILY PRN 11/21/19 07/20/20 Metoprolol Succinate [Toprol Xl] 25 mg PO BID 11/21/19 07/20/20 SUMAtriptan succinate [Sumatriptan 6 mg SQ ONCE PRN 11/21/19 07/20/20 Succinate] Venlafaxine HCl 75 mg PO DAILY 11/21/19 07/20/20 Vitamin [Trinatal Rx 1] 1 tab PO DAILYWM #30 tablet 11/27/19 07/20/20 Thiamine [Vitamin B-1] 100 mg PO DAILY #30 tablet 11/27/19 07/20/20 Baclofen 10 mg PO TID 02/06/20 07/20/20 Estrogens, Conjugated Cream 1 applic VG DAILY 02/06/20 07/20/20 [Premarin Cream] Gabapentin [Neurontin] 800 mg PO TID 02/06/20 07/20/20 SUMAtriptan succinate [Sumatriptan 100 mg PO DAILY PRN 02/06/20 07/20/20 Succinate] Albuterol Sulfate [Albuterol 8.5 gm IH Q4HR PRN #7 hfa.aer.ad 02/11/20 07/20/20 Sulfate Hfa] Cyclobenzaprine [Flexeril] 10 mg PO TID PRN #20 tab 07/20/20 Famotidine [Acid-Pep] 20 mg PO DAILY 07/20/20 07/20/20 HYDROcod/ACETAM 5/325 [[place] 5/325] 1 - 2 ea PO Q6H PRN #8 tab 07/20/20 HYDROcod/ACETAM 5/325 [[place]ade 5/325] 1 - 2 tablet PO Q6H PRN #10 tablet 12/20/20 Nitrofurantoin [Macrobid] 1 cap PO BID #10 cap 04/03/21 Albuterol Sulf [Ventolin Hfa 1 - 2 puffs INH Q4HR PRN #1 inhaler 05/30/21 Inhaler] Benzonatate [Tessalon] 100 mg PO TID PRN #20 cap 05/30/21 Guaifenesin/Pseudoephedrne HCl 1 each PO BID PRN #20 tab 05/30/21 [Mucinex D ER 1,200-120 mg Tab] - Allergies Allergies/Adverse Reactions: Allergies Allergy/AdvReac Type Severity Reaction Status Date / Time pregabalin [From Lyrica] Allergy Hives Verified 05/30/21 13:10 adhesive tape AdvReac Rash Verified 05/30/21 13:10 Sulfa (Sulfonamide AdvReac Itching Verified 05/30/21 13:10 Antibiotics) - Social History Does the pt smoke?: Yes Smoking Status: Current every day smoker Does the pt drink ETOH?: No Does the pt have substance abuse?: No - Immunizations Immunizations are current?: Yes - POLST Patient has POLST: No POLST Status: Full Code PD ED PE NORMAL - General General: Alert and oriented X 3, No acute distress - HEENT HEENT: PERRL - Cardiac Cardiac: RRR, No murmur - Respiratory Respiratory: Clear bilaterally - Abdomen Abdomen: Normal bowel sounds, Soft, Non tender, Non distended - Back Back: No spinal TTP Results - Vitals Vitals: Vital Signs - 24 hr 05/30/21 13:05 Temperature 36.5 C Heart Rate 75 Respiratory 16 Rate Blood Pressure 144/81 H O2 Saturation 99 Oxygen O2 Source Room air - Rads (name of study) cxr Radiology: Final report received (No acute findings) PD MEDICAL DECISION MAKING - ED course Complexity details: reviewed results, re-evaluated patient, considered differential, d/w patient ED course: This is a very well-appearing 61-year-old female that presents emergency department for a few days of cough congestion and fever up to 101. This follows getting boosted for COVID-19. She is a daily tobacco user. A COVID-19 test is pending on her. Chest x-ray is without acute focal opacity. Cardiopulmonary auscultation was entirely unremarkable with normal room air saturations. At this point I do suspect that she has a viral upper respiratory infection. Prescription for albuterol and Tessalon Perles will be sent to the pharmacy as well as some Mucinex as she requested an expectorant. Emergent worrisome return precautions were discussed. Departure - Departure Disposition: 01 Home, Self Care Clinical Impression: Upper respiratory infection Qualifiers: URI type: unspecified viral URI Qualified Code(s): J06.9 - Acute upper respiratory infection, unspecified Condition: Stable Record reviewed to determine appropriate education?: Yes Prescriptions: Albuterol Sulf [Ventolin Hfa Inhaler] 1 - 2 puffs INH Q4HR PRN #1 inhaler PRN Reason: Shortness Of Air/Wheezing Guaifenesin/Pseudoephedrne HCl [Mucinex D ER 1,200-120 mg Tab] 1 each PO BID PRN #20 tab PRN Reason: Cough Benzonatate [Tessalon] 100 mg PO TID PRN #20 cap PRN Reason: Cough Comments: Angélica you are seen today for a cough and fever. Your chest x-ray is normal for your age. There are no findings of pneumonia. You do have a COVID-19 test pending and I encourage you to remain in quarantine until you know the results. I have sent a prescription for some albuterol, Mucinex as well as Tessalon Perles to the pharmacy. This should help reduce the cough. If at any point feel your symptoms are worsening, cough does not improve after 10 days or you are severely short of air then please return immediately to the ER for second evaluation.
== END 2021-05-30 14:11 | disposition home or self-care (01) ==
LOC: ED 13:01
DX: J06.9 Acute upper respiratory infection, unspecified (principal); Z20.822 Contact with and (suspected) exposure to COVID-19; I10 Essential (primary) hypertension; F17.200 Nicotine dependence, unspecified, uncomplicated
CPT/HCPCS: 99283; 99284

== ENCOUNTER 2021-06-02 12:20 | Emergency (ER) | payer MEDICAID ==
[2021-06-02 12:30] VITALS: BP 150/96
[2021-06-02 12:51] LABS: BILIRUBIN,URINE NEGATIVE (NEGATIVE); GLUCOSE, URINE (UA) NEGATIVE (NEGATIVE); KETONES,URINE (UA) NEGATIVE (NEGATIVE); LEUKOCYTE ESTERASE, URINE MODERATE (NEGATIVE); NITRITE,URINE NEGATIVE (NEGATIVE); OCCULT BLOOD,URINE TRACE-INTA (NEGATIVE); PH,URINE 6.5 PH (5.0-7.5); PROTEIN,URINE NEGATIVE (NEGATIVE); UROBILINOGEN,URINE 0.2 (NORMAL) E.U./dL (NORMAL)
[2021-06-02 12:52] LABS: CLARITY,URINE SL. CLOUDY (CLEAR)
[2021-06-02 13:03] LABS: BACTERIA,URINE Moderate /HPF (None Seen); SQUAMOUS EPITHELIAL CELL,UR FEW Squamous (<= Few); WBC,URINE >25 /HPF (0-5)
--- NOTE | 2021-06-02 13:08 | ED Physician Documentation ---
PD HPI FEMALE - Stated complaint Stated Complaint: FEMALE - Chief complaint Chief Complaint: UTI - History obtained from History obtained from: Patient - Additional information Additional information: She had a viral URI for a few days, tested negative for Covid but still has a scratchy throat and cough without shortness of breath. Now over the last day has urinary frequency, dysuria and urgency. No fevers or flank pain. Review of Systems Constitutional: reports: Reviewed and negative Nose: reports: Rhinorrhea / runny nose Throat: reports: Sore throat Respiratory: reports: Cough. denies: Dyspnea PD PAST MEDICAL HISTORY - Past Medical History Cardiovascular: Hypertension, High cholesterol Respiratory: None Neuro: None Endocrine/Autoimmune: None GI: None SHERIFFS OFFICER: None : None HEENT: None Psych: Depression Musculoskeletal: Chronic back pain Derm: None - Past Surgical History Past Surgical History: Yes Ortho: Spine surgery /SHERIFFS OFFICER: section - Present Medications Home Medications: Ambulatory Orders Medication Instructions Recorded Confirmed DULoxetine [Cymbalta] 60 mg PO DAILY 10/11/18 07/20/20 busPIRone [Buspar] 15 mg PO BID 10/11/18 07/20/20 traZODone [Desyrel] 150 mg PO QPM 10/11/18 07/20/20 Meloxicam 15 mg PO DAILY 11/20/19 07/20/20 Alendronate [Fosamax] 70 mg PO FR 11/21/19 07/20/20 Furosemide 40 mg PO DAILY PRN 11/21/19 07/20/20 Metoprolol Succinate [Toprol Xl] 25 mg PO BID 11/21/19 07/20/20 SUMAtriptan succinate [Sumatriptan 6 mg SQ ONCE PRN 11/21/19 07/20/20 Succinate] Venlafaxine HCl 75 mg PO DAILY 11/21/19 07/20/20 Vitamin [Trinatal Rx 1] 1 tab PO DAILYWM #30 tablet 11/27/19 07/20/20 Thiamine [Vitamin B-1] 100 mg PO DAILY #30 tablet 11/27/19 07/20/20 Baclofen 10 mg PO TID 02/06/20 07/20/20 Estrogens, Conjugated Cream 1 applic VG DAILY 02/06/20 07/20/20 [Premarin Cream] Gabapentin [Neurontin] 800 mg PO TID 02/06/20 07/20/20 SUMAtriptan succinate [Sumatriptan 100 mg PO DAILY PRN 02/06/20 07/20/20 Succinate] Albuterol Sulfate [Albuterol 8.5 gm IH Q4HR PRN #7 hfa.aer.ad 02/11/20 07/20/20 Sulfate Hfa] Cyclobenzaprine [Flexeril] 10 mg PO TID PRN #20 tab 07/20/20 Famotidine [Acid-Pep] 20 mg PO DAILY 07/20/20 07/20/20 HYDROcod/ACETAM 5/325 [[place] 5/325] 1 - 2 ea PO Q6H PRN #8 tab 07/20/20 HYDROcod/ACETAM 5/325 [[place] 5/325] 1 - 2 tablet PO Q6H PRN #10 tablet 12/20/20 Nitrofurantoin [Macrobid] 1 cap PO BID #10 cap 04/03/21 Albuterol Sulf [Ventolin Hfa 1 - 2 puffs INH Q4HR PRN #1 inhaler 05/30/21 Inhaler] Benzonatate [Tessalon] 100 mg PO TID PRN #20 cap 05/30/21 Guaifenesin/Pseudoephedrne HCl 1 each PO BID PRN #20 tab 05/30/21 [Mucinex D ER 1,200-120 mg Tab] Nitrofurantoin [Macrobid] 1 cap PO BID #10 cap 06/02/21 Phenazopyridine HCl [Pyridium] 200 mg PO TID PRN #6 tablet 06/02/21 guaiFENesin/CODEINE [Robitussin AC] 5 - 10 ml PO Q6H PRN #120 ml 06/02/21 - Allergies Allergies/Adverse Reactions: Allergies Allergy/AdvReac Type Severity Reaction Status Date / Time pregabalin [From Lyrica] Allergy Hives Verified 06/02/21 12:31 adhesive tape AdvReac Rash Verified 06/02/21 12:31 Sulfa (Sulfonamide AdvReac Itching Verified 06/02/21 12:31 Antibiotics) - Social History Does the pt smoke?: Yes Smoking Status: Current every day smoker Does the pt drink ETOH?: No Does the pt have substance abuse?: No - Immunizations Immunizations are current?: Yes - POLST Patient has POLST: No POLST Status: Full Code PD ED PE NORMAL - Vitals Vital signs reviewed: Yes - General General: Alert and oriented X 3, No acute distress - HEENT HEENT: Other (Laryngitic voice) - Abdomen Abdomen: Soft, Non tender - Back Back: No CVA TTP - Neuro Neuro: Alert and oriented X 3, Normal speech Results - Vitals Vitals: Vital Signs - 24 hr 06/02/21 12:26 Temperature 36.5 C Heart Rate 89 Respiratory 16 Rate Blood Pressure 150/96 H O2 Saturation 97 Oxygen O2 Source Room air - Labs Labs: Laboratory Tests 06/02/21 12:45 Urine Color YELLOW Urine Clarity SL. CLOUDY Urine pH 6.5 Ur Specific [place] <=1.005 Urine Protein NEGATIVE Urine Glucose (UA) NEGATIVE Urine Ketones NEGATIVE Urine Occult Blood TRACE-INTA Urine Nitrite NEGATIVE Urine Bilirubin NEGATIVE Urine Urobilinogen 0.2 (NORMAL) Ur Leukocyte Esterase MODERATE H Urine RBC 6-10 H Urine WBC >25 H Ur Squamous Epith Cells FEW Squamous Urine Bacteria Moderate H Ur Microscopic Review INDICATED Urine Culture Comments INDICATED Departure - Departure Disposition: 01 Home, Self Care Clinical Impression: Cystitis, Upper respiratory infection Condition: Stable Record reviewed to determine appropriate education?: Yes Instructions: ED UTI Cystitis Female Prescriptions: Nitrofurantoin [Macrobid] 1 cap PO BID #10 cap Phenazopyridine HCl [Pyridium] 200 mg PO TID PRN #6 tablet PRN Reason: dysuria guaiFENesin/CODEINE [Robitussin AC] 5 - 10 ml PO Q6H PRN #120 ml PRN Reason: Cough Comments: Prescriptions sent electronically to the [facility] pharmacy at the corner of [address] and [address] [id number] here in [place]. We will culture your urine, the results should be done in 48-72 hours. If an antibiotic change is necessary we will call you. Return if worse in the meantime, especially if you develop increasing flank pain, fevers, or cannot keep down the medication.
== END 2021-06-02 13:10 | disposition home or self-care (01) ==
LOC: ED 12:20
DX: N30.90 Cystitis, unspecified without hematuria (principal); J06.9 Acute upper respiratory infection, unspecified; I10 Essential (primary) hypertension; F17.200 Nicotine dependence, unspecified, uncomplicated
CPT/HCPCS: 81001; 81003; 87086; 99283

== ENCOUNTER 2021-06-10 18:43 | Outpatient (CLI) | payer MEDICAID | END 2021-06-10 18:44 | disposition EMS.NT | LOC: EMS 18:43 | DX: R50.9 Fever, unspecified (principal); R05.9 Cough, unspecified; J02.9 Acute pharyngitis, unspecified ==

== ENCOUNTER 2021-06-11 17:47 | Outpatient (CLI) | payer MEDICAID | END 2021-06-11 17:48 | disposition critical access hospital (66) | LOC: EMS 17:47 | DX: R51.9 Headache, unspecified (principal); R45.89 Other symptoms and signs involving emotional state; W19.XXXA Unspecified fall, initial encounter; Z72.89 Other problems related to lifestyle | CPT/HCPCS: A0425; A0429; A0999 ==

== ENCOUNTER 2021-06-11 17:53 | Emergency (ER) | payer MEDICAID ==
--- NOTE | 2021-06-11 18:53 | CT Report ---
PROCEDURE: HEAD WO INDICATIONS: HBD, fall TECHNIQUE: Noncontrast 4.5 mm thick angled axial sections acquired from the foramen magnum to the vertex. For r adiation dose reduction, the following was used: automated exposure control, adjustment of mA and/or kV according to patient size. COMPARISON: None. FINDINGS: Image quality: Excellent. CSF spaces: Basal cisterns are patent. No extra-axial fluid collections. Ventricles are normal in size and shape. Brain: No midline shift. No intracranial masses or hemorrhage. Herrera-white matter interface is norm al. Skull and face: Calvarium and visualized facial bones are intact, without suspicious lesions. Sinuses: Visualized sinuses and mastoids are clear. IMPRESSION: No acute process. Reviewed by: Anastacia Soto MD on 06/11/2021 6:52 PM PST Approved by: Anastacia Soto MD on 06/11/2021 6:52 PM [facility] Station ID: [id number]
--- NOTE | 2021-06-11 19:08 | ED Physician Documentation ---
History of Present Illness - Stated complaint Stated Complaint: HEAD INJ - Chief complaint Chief Complaint: Trauma Hd/Nk - Additonal information Additional information: 61-year-old female presents emergency department for evaluation of a headache after ground-level fall. This patient is well-known to the emergency department and has a history of heavy alcohol abuse. However she had been sober for 1 year until she chose to drink on [address]. She reports slipping in her home yesterday falling backwards striking her head. She does not believe that there was loss of consciousness. There has been no vomiting. She reports a mild headache since then. She is quite tearful and upset that she drank after a year of sobriety. Review of Systems Constitutional: denies: Fever, Chills Eyes: reports: Reviewed and negative Nose: reports: Reviewed and negative Throat: reports: Reviewed and negative Cardiac: reports: Reviewed and negative Respiratory: reports: Reviewed and negative : reports: Reviewed and negative Neurologic: reports: Headache. denies: Numbness, Difficulty speaking, Syncope, Seizure, Confused PD PAST MEDICAL HISTORY - Past Medical History Past Medical History: Yes Cardiovascular: Hypertension, High cholesterol Respiratory: None Neuro: None Endocrine/Autoimmune: None GI: None ADOPTION SPECIALIST: None : None HEENT: None Psych: Depression Musculoskeletal: Chronic back pain Derm: None - Past Surgical History Past Surgical History: Yes Ortho: Spine surgery /ADOPTION SPECIALIST: section - Present Medications Home Medications: Ambulatory Orders Medication Instructions Recorded Confirmed DULoxetine [Cymbalta] 60 mg PO DAILY 10/11/18 07/20/20 busPIRone [Buspar] 15 mg PO BID 10/11/18 07/20/20 traZODone [Desyrel] 150 mg PO QPM 10/11/18 07/20/20 Meloxicam 15 mg PO DAILY 11/20/19 07/20/20 Alendronate [Fosamax] 70 mg PO FR 11/21/19 07/20/20 Furosemide 40 mg PO DAILY PRN 11/21/19 07/20/20 Metoprolol Succinate [Toprol Xl] 25 mg PO BID 11/21/19 07/20/20 SUMAtriptan succinate [Sumatriptan 6 mg SQ ONCE PRN 11/21/19 07/20/20 Succinate] Venlafaxine HCl 75 mg PO DAILY 11/21/19 07/20/20 Vitamin [Trinatal Rx 1] 1 tab PO DAILYWM #30 tablet 11/27/19 07/20/20 Thiamine [Vitamin B-1] 100 mg PO DAILY #30 tablet 11/27/19 07/20/20 Baclofen 10 mg PO TID 02/06/20 07/20/20 Estrogens, Conjugated Cream 1 applic VG DAILY 02/06/20 07/20/20 [Premarin Cream] Gabapentin [Neurontin] 800 mg PO TID 02/06/20 07/20/20 SUMAtriptan succinate [Sumatriptan 100 mg PO DAILY PRN 02/06/20 07/20/20 Succinate] Albuterol Sulfate [Albuterol 8.5 gm IH Q4HR PRN #7 hfa.aer.ad 02/11/20 07/20/20 Sulfate Hfa] Cyclobenzaprine [Flexeril] 10 mg PO TID PRN #20 tab 07/20/20 Famotidine [Acid-Pep] 20 mg PO DAILY 07/20/20 07/20/20 HYDROcod/ACETAM 5/325 [[place] 5/325] 1 - 2 ea PO Q6H PRN #8 tab 07/20/20 HYDROcod/ACETAM 5/325 [[place] 5/325] 1 - 2 tablet PO Q6H PRN #10 tablet 12/20/20 Nitrofurantoin [Macrobid] 1 cap PO BID #10 cap 04/03/21 Albuterol Sulf [Ventolin Hfa 1 - 2 puffs INH Q4HR PRN #1 inhaler 05/30/21 Inhaler] Benzonatate [Tessalon] 100 mg PO TID PRN #20 cap 05/30/21 Guaifenesin/Pseudoephedrne HCl 1 each PO BID PRN #20 tab 05/30/21 [Mucinex D ER 1,200-120 mg Tab] Nitrofurantoin [Macrobid] 1 cap PO BID #10 cap 06/02/21 Phenazopyridine HCl [Pyridium] 200 mg PO TID PRN #6 tablet 06/02/21 guaiFENesin/CODEINE [Robitussin AC] 5 - 10 ml PO Q6H PRN #120 ml 06/02/21 - Allergies Allergies/Adverse Reactions: Allergies Allergy/AdvReac Type Severity Reaction Status Date / Time pregabalin [From Lyrica] Allergy Hives Verified 06/11/21 18:03 adhesive tape AdvReac Rash Verified 06/11/21 18:03 Sulfa (Sulfonamide AdvReac Itching Verified 06/11/21 18:03 Antibiotics) - Social History Does the pt smoke?: Yes Smoking Status: Current every day smoker Does the pt drink ETOH?: No Does the pt have substance abuse?: No - Immunizations Immunizations are current?: Yes - POLST Patient has POLST: No POLST Status: Full Code PD ED PE NORMAL - HEENT HEENT: Atraumatic, PERRL, EOMI, Ears normal, Moist mucous membranes, Other (No obvious hematoma or cranial deficit noted) - Neck Neck: Supple, no meningeal sign, No adenopathy, Other (Patient ranges her neck fully.) - Cardiac Cardiac: RRR, No murmur, No gallop - Respiratory Respiratory: Clear bilaterally - Abdomen Abdomen: Normal bowel sounds, Soft, Non tender, Non distended - Back Back: No CVA TTP, No spinal TTP - Derm Derm: Normal color, Warm and dry, No rash - Extremities Extremities: No deformity - Neuro Neuro: Alert and oriented X 3, trans router 2-12 intact, No motor deficit Eye Opening: Spontaneous Motor: Obeys Commands Verbal: Oriented GCS Score: 15 Results - Vitals Vitals: Vital Signs - 24 hr 06/11/21 06/11/21 18:00 19:37 Temperature 37.3 C Heart Rate 79 72 Respiratory 16 15 Rate Blood Pressure 147/87 H 115/64 O2 Saturation 95 96 Oxygen O2 Source Room air - Labs Labs: Laboratory Tests 06/11/21 18:45 Ethyl Alcohol 364.4 - Rads (name of study) CT head Radiology: Final report received (No acute intracranial process.) PD MEDICAL DECISION MAKING - ED course Complexity details: reviewed results, re-evaluated patient, d/w patient ED course: 61-year-old female presented to the emergency department for evaluation of a headache after ground-level fall yesterday evening. Patient does have a history of previous alcoholism and had been sober for 1 year before drinking on [employer]. She did present appearing fairly intoxicated smelling heavily of alcohol and had a blood alcohol greater than 300. She did not have any obvious focal neuro deficits. A CT of the head was unremarkable. Before imaging findings could be discussed with the patient however she did elope from the emergency department without notifying any staff. At the time of last evaluation she did appear clinically stable though intoxicated. We did notify security as well as [employer] to search for patient given her very cold and rainy weather conditions. Departure - Departure Disposition: ED Elope Clinical Impression: Fall from ground level Alcohol intoxication Qualifiers: Complication of substance-induced condition: uncomplicated Qualified Code(s): F10.920 - Alcohol use, unspecified with intoxication, uncomplicated Discharge Date/Time: 06/11/21 20:38
[2021-06-11 19:37] VITALS: BP 115/64
== END 2021-06-11 20:38 | disposition left against medical advice (07) ==
LOC: EDUNIT# → ED 17:53
DX: R51.9 Headache, unspecified (principal); W01.0XXA Fall on same level from slipping, tripping and stumbling without subsequent striking against object, initial encounter; Y92.009 Unspecified place in unspecified non-institutional (private) residence as the place of occurrence of the external cause; F10.920 Alcohol use, unspecified with intoxication, uncomplicated; Y90.8 Blood alcohol level of 240 mg/100 ml or more; I10 Essential (primary) hypertension; F17.200 Nicotine dependence, unspecified, uncomplicated; Z53.29 Procedure and treatment not carried out because of patient's decision for other reasons
CPT/HCPCS: 36415; 80320; 99282; 99284

== ENCOUNTER 2021-06-18 02:45 | Outpatient (CLI) | payer MEDICAID | END 2021-06-18 02:46 | disposition EMS.NT | LOC: EMS 02:45 | DX: F10.129 Alcohol abuse with intoxication, unspecified (principal); H57.11 Ocular pain, right eye ==

== ENCOUNTER 2021-06-19 01:50 | Outpatient (CLI) | payer MEDICAID | END 2021-06-19 01:51 | disposition EMS.NT | LOC: EMS 01:50 | DX: H57.10 Ocular pain, unspecified eye (principal) ==

== ENCOUNTER 2021-06-27 21:06 | Outpatient (CLI) | payer MEDICAID | END 2021-06-27 21:07 | disposition EMS.NT | LOC: EMS 21:06 | DX: Z72.89 Other problems related to lifestyle (principal) ==

== ENCOUNTER 2021-07-04 14:11 | Emergency (ER) | payer MEDICAID ==
[2021-07-04 14:20] VITALS: BP 154/109
[2021-07-04 14:57] LABS: BILIRUBIN,URINE NEGATIVE (NEGATIVE); GLUCOSE, URINE (UA) NEGATIVE (NEGATIVE); KETONES,URINE (UA) NEGATIVE (NEGATIVE); LEUKOCYTE ESTERASE, URINE LARGE (NEGATIVE); NITRITE,URINE NEGATIVE (NEGATIVE); OCCULT BLOOD,URINE SMALL (NEGATIVE); PH,URINE 6.5 PH (5.0-7.5); PROTEIN,URINE 30 mg/dL (NEGATIVE); UROBILINOGEN,URINE 0.2 (NORMAL) E.U./dL (NORMAL)
[2021-07-04 15:18] LABS: CLARITY,URINE CLOUDY (CLEAR)
--- NOTE | 2021-07-04 15:49 | ED Physician Documentation ---
History of Present Illness - Stated complaint Stated Complaint: F - Chief complaint Chief Complaint: UTI - History obtained from History obtained from: Patient - History of Present Illness Timing: Yesterday (3) Pain level max: 3 Pain level now: 3 - Additonal information Additional information: 61-year-old female complains of dysuria and urinary frequency for the past 2 days. Similar to prior UTIs. No fevers. No abdominal or back pain. No vomiting. Worse with urination, nothing makes it better. Review of Systems Constitutional: denies: Fever Respiratory: denies: Cough GI: denies: Vomiting : reports: Dysuria, Frequency PD PAST MEDICAL HISTORY - Past Medical History Cardiovascular: Hypertension, High cholesterol Respiratory: None Neuro: None Endocrine/Autoimmune: None GI: None CIRCUIT TESTER: None : None HEENT: None Psych: Depression Musculoskeletal: Chronic back pain Derm: None - Past Surgical History Past Surgical History: Yes Ortho: Spine surgery /CIRCUIT TESTER: section - Present Medications Home Medications: Ambulatory Orders Medication Instructions Recorded Confirmed DULoxetine [Cymbalta] 60 mg PO DAILY 10/11/18 07/20/20 busPIRone [Buspar] 15 mg PO BID 10/11/18 07/20/20 traZODone [Desyrel] 150 mg PO QPM 10/11/18 07/20/20 Meloxicam 15 mg PO DAILY 11/20/19 07/20/20 Alendronate [Fosamax] 70 mg PO FR 11/21/19 07/20/20 Furosemide 40 mg PO DAILY PRN 11/21/19 07/20/20 Metoprolol Succinate [Toprol Xl] 25 mg PO BID 11/21/19 07/20/20 SUMAtriptan succinate [Sumatriptan 6 mg SQ ONCE PRN 11/21/19 07/20/20 Succinate] Venlafaxine HCl 75 mg PO DAILY 11/21/19 07/20/20 Vitamin [Trinatal Rx 1] 1 tab PO DAILYWM #30 tablet 11/27/19 07/20/20 Thiamine [Vitamin B-1] 100 mg PO DAILY #30 tablet 11/27/19 07/20/20 Baclofen 10 mg PO TID 02/06/20 07/20/20 Estrogens, Conjugated Cream 1 applic VG DAILY 02/06/20 07/20/20 [Premarin Cream] Gabapentin [Neurontin] 800 mg PO TID 02/06/20 07/20/20 SUMAtriptan succinate [Sumatriptan 100 mg PO DAILY PRN 02/06/20 07/20/20 Succinate] Albuterol Sulfate [Albuterol 8.5 gm IH Q4HR PRN #7 hfa.aer.ad 02/11/20 07/20/20 Sulfate Hfa] Cyclobenzaprine [Flexeril] 10 mg PO TID PRN #20 tab 07/20/20 Famotidine [Acid-Pep] 20 mg PO DAILY 07/20/20 07/20/20 HYDROcod/ACETAM 5/325 [[place] 5/325] 1 - 2 ea PO Q6H PRN #8 tab 07/20/20 HYDROcod/ACETAM 5/325 [[place] 5/325] 1 - 2 tablet PO Q6H PRN #10 tablet 12/20/20 Nitrofurantoin [Macrobid] 1 cap PO BID #10 cap 04/03/21 Albuterol Sulf [Ventolin Hfa 1 - 2 puffs INH Q4HR PRN #1 inhaler 05/30/21 Inhaler] Benzonatate [Tessalon] 100 mg PO TID PRN #20 cap 05/30/21 Guaifenesin/Pseudoephedrne HCl 1 each PO BID PRN #20 tab 05/30/21 [Mucinex D ER 1,200-120 mg Tab] Nitrofurantoin [Macrobid] 1 cap PO BID #10 cap 06/02/21 Phenazopyridine HCl [Pyridium] 200 mg PO TID PRN #6 tablet 06/02/21 guaiFENesin/CODEINE [Robitussin AC] 5 - 10 ml PO Q6H PRN #120 ml 06/02/21 Nitrofurantoin [Macrobid] 100 mg PO BID #10 cap 07/04/21 - Allergies Allergies/Adverse Reactions: Allergies Allergy/AdvReac Type Severity Reaction Status Date / Time pregabalin [From Lyrica] Allergy Hives Verified 07/04/21 14:20 adhesive tape AdvReac Rash Verified 07/04/21 14:20 Sulfa (Sulfonamide AdvReac Itching Verified 07/04/21 14:20 Antibiotics) - Social History Does the pt smoke?: Yes Smoking Status: Current every day smoker Does the pt drink ETOH?: No Does the pt have substance abuse?: No - Immunizations Immunizations are current?: Yes - POLST Patient has POLST: No POLST Status: Full Code PD ED PE NORMAL - Vitals Vital signs reviewed: Yes - General General: Alert and oriented X 3, No acute distress - HEENT HEENT: Moist mucous membranes - Neck Neck: Supple, no meningeal sign - Cardiac Cardiac: RRR - Respiratory Respiratory: No respiratory distress, Clear bilaterally - Abdomen Abdomen: Soft, Non tender, Non distended - Back Back: No CVA TTP - Derm Derm: Warm and dry - Neuro Neuro: Alert and oriented X 3 Results - Vitals Vitals: Vital Signs - 24 hr 07/04/21 14:17 Temperature 36.2 C L Heart Rate 71 Respiratory 16 Rate Blood Pressure 154/109 H O2 Saturation 100 Oxygen O2 Source Room air - Labs Labs: Laboratory Tests 07/04/21 14:30 Urine Color YELLOW Urine Clarity CLOUDY Urine pH 6.5 Ur Specific [place] 1.020 Urine Protein 30 H Urine Glucose (UA) NEGATIVE Urine Ketones NEGATIVE Urine Occult Blood SMALL H Urine Nitrite NEGATIVE Urine Bilirubin NEGATIVE Urine Urobilinogen 0.2 (NORMAL) Ur Leukocyte Esterase LARGE H Urine RBC TNTC H Urine WBC >25 H Ur Squamous Epith Cells RARE Squamous Urine Bacteria Many H Ur Microscopic Review INDICATED Urine Culture Comments INDICATED PD MEDICAL DECISION MAKING - ED course Complexity details: reviewed results, re-evaluated patient, considered differential, d/w patient ED course: Patient with a UTI. Will place on antibiotics for home. Patient is well-appearing, nontoxic. Afebrile. No evidence of pyelonephritis or sepsis. Patient counseled regarding signs and symptoms for which I believe and urgent re-evaluation would be necessary. Patient with good understanding of and agreement to plan and is comfortable going home at this time This document was made in part using voice recognition software. While efforts are made to proofread this document, sound alike and grammatical errors may occur. Departure - Departure Disposition: Home, Self Care Clinical Impression: UTI (urinary tract infection) Qualifiers: Urinary tract infection type: acute cystitis Hematuria presence: without hematuria Qualified Code(s): N30.00 - Acute cystitis without hematuria Condition: Good Instructions: ED UTI Cystitis Female Follow-Up: Royer Mathur MD [Primary Care Provider] - Within 1 week Prescriptions: Nitrofurantoin [Macrobid] 100 mg PO BID #10 cap Comments: Your prescription was sent to the [facility] pharmacy. Please take all antibiotics until gone. Please follow-up with your doctor for further care. If you are having frequent UTIs, your doctor will want to investigate this further. Discharge Date/Time: 07/04/21 16:05
[2021-07-04 15:57] LABS: BACTERIA,URINE Many /HPF (None Seen); RBC,URINE TNTC /HPF (0-5); SQUAMOUS EPITHELIAL CELL,UR RARE Squamous (<= Few); WBC,URINE >25 /HPF (0-5)
== END 2021-07-04 16:05 | disposition home or self-care (01) ==
LOC: ED 14:11
DX: N30.00 Acute cystitis without hematuria (principal); I10 Essential (primary) hypertension; F17.200 Nicotine dependence, unspecified, uncomplicated
CPT/HCPCS: 81001; 81003; 87086; 87181; 99283

== ENCOUNTER 2021-08-07 14:49 | Outpatient (CLI) | payer MEDICAID | END 2021-08-07 14:50 | disposition EMS.NT | LOC: EMS 14:49 | DX: R45.89 Other symptoms and signs involving emotional state (principal) ==

== ENCOUNTER 2021-09-10 16:16 | Emergency (ER) | payer MEDICAID ==
[2021-09-10] MEDS ORDERED: SUCRALFATE 1 GM/10 ML UDC PO STA (17:00)
[2021-09-10] MEDS ORDERED: SODIUM CHLORIDE 0.9% 1,000 ML IV STA (17:00)
[2021-09-10] MEDS ORDERED: MAG HYDROX/AL HYDROX/SIMETH 30 ML UDC PO STA (17:00)
[2021-09-10] MEDS ORDERED: FAMOTIDINE 20 MG TABLET PO STA (17:01)
[2021-09-10] MEDS ORDERED: LIDOCAINE VISCOUS 2% 15 ML UDC MM STA (17:01)
--- NOTE | 2021-09-10 17:27 | ED Physician Documentation ---
History of Present Illness - Stated complaint Stated Complaint: [place] when eating/drinking - Chief complaint Chief Complaint: General - History obtained from History obtained from: Patient - History of Present Illness Timing: How many days ago (3) Pain level max: 7 Pain level now: 5 - Additonal information Additional information: 61-year-old female states for the past 3 to 4 days she has had a burning sensation in her esophagus whenever she eats or drinks. Also has a burning sensation in her epigastric area. No fevers. No chills. No cough. No congestion. Some nausea but no vomiting. No diarrhea or constipation. Worse with eating and drinking. Nothing makes it better. She states that she has not had any alcohol for almost 2 months. She has been taking Motrin regularly for headaches. Review of Systems Ten Systems: 10 systems reviewed and negative Constitutional: denies: Fever, Chills Nose: denies: Rhinorrhea / runny nose, Congestion Throat: denies: Sore throat Cardiac: denies: Chest pain / pressure, Palpitations Respiratory: denies: Cough GI: denies: Nausea, Vomiting, Hematemesis, Bloody / black stool Skin: denies: Rash Musculoskeletal: denies: Neck pain, Back pain Neurologic: denies: Headache PD PAST MEDICAL HISTORY - Past Medical History Past Medical History: Yes Cardiovascular: Hypertension, High cholesterol Respiratory: None Neuro: None Endocrine/Autoimmune: None GI: None FENCE RIDER: None : None HEENT: None Psych: Depression Musculoskeletal: Chronic back pain Derm: None - Past Surgical History Past Surgical History: Yes Ortho: Spine surgery /FENCE RIDER: section - Present Medications Home Medications: Ambulatory Orders Medication Instructions Recorded Confirmed DULoxetine [Cymbalta] 60 mg PO DAILY 10/11/18 07/20/20 busPIRone [Buspar] 15 mg PO BID 10/11/18 07/20/20 traZODone [Desyrel] 150 mg PO QPM 10/11/18 07/20/20 Meloxicam 15 mg PO DAILY 11/20/19 07/20/20 Alendronate [Fosamax] 70 mg PO FR 11/21/19 07/20/20 Furosemide 40 mg PO DAILY PRN 11/21/19 07/20/20 Metoprolol Succinate [Toprol Xl] 25 mg PO BID 11/21/19 07/20/20 SUMAtriptan succinate [Sumatriptan 6 mg SQ ONCE PRN 11/21/19 07/20/20 Succinate] Venlafaxine HCl 75 mg PO DAILY 11/21/19 07/20/20 Vitamin [Trinatal Rx 1] 1 tab PO DAILYWM #30 tablet 11/27/19 07/20/20 Thiamine [Vitamin B-1] 100 mg PO DAILY #30 tablet 11/27/19 07/20/20 Baclofen 10 mg PO TID 02/06/20 07/20/20 Estrogens, Conjugated Cream 1 applic VG DAILY 02/06/20 07/20/20 [Premarin Cream] Gabapentin [Neurontin] 800 mg PO TID 02/06/20 07/20/20 SUMAtriptan succinate [Sumatriptan 100 mg PO DAILY PRN 02/06/20 07/20/20 Succinate] Albuterol Sulfate [Albuterol 8.5 gm IH Q4HR PRN #7 hfa.aer.ad 02/11/20 07/20/20 Sulfate Hfa] Cyclobenzaprine [Flexeril] 10 mg PO TID PRN #20 tab 07/20/20 Famotidine [Acid-Pep] 20 mg PO DAILY 07/20/20 07/20/20 HYDROcod/ACETAM 5/325 [[place] 5/325] 1 - 2 ea PO Q6H PRN #8 tab 07/20/20 HYDROcod/ACETAM 5/325 [[place] 5/325] 1 - 2 tablet PO Q6H PRN #10 tablet 12/20/20 Nitrofurantoin [Macrobid] 1 cap PO BID #10 cap 04/03/21 Albuterol Sulf [Ventolin Hfa 1 - 2 puffs INH Q4HR PRN #1 inhaler 05/30/21 Inhaler] Benzonatate [Tessalon] 100 mg PO TID PRN #20 cap 05/30/21 Guaifenesin/Pseudoephedrne HCl 1 each PO BID PRN #20 tab 05/30/21 [Mucinex D ER 1,200-120 mg Tab] Nitrofurantoin [Macrobid] 1 cap PO BID #10 cap 06/02/21 Phenazopyridine HCl [Pyridium] 200 mg PO TID PRN #6 tablet 06/02/21 guaiFENesin/CODEINE [Robitussin AC] 5 - 10 ml PO Q6H PRN #120 ml 06/02/21 Nitrofurantoin [Macrobid] 100 mg PO BID #10 cap 07/04/21 Esomeprazole Magnesium [Nexium] 40 mg PO DAILY #30 cap.sr 09/10/21 Famotidine [Pepcid] 20 mg PO BID #60 tablet 09/10/21 Sucralfate [Carafate] 1 gm PO ACHS #60 tablet 09/10/21 - Allergies Allergies/Adverse Reactions: Allergies Allergy/AdvReac Type Severity Reaction Status Date / Time pregabalin [From Lyrica] Allergy Hives Verified 09/10/21 16:24 adhesive tape AdvReac Rash Verified 09/10/21 16:24 Sulfa (Sulfonamide AdvReac Itching Verified 09/10/21 16:24 Antibiotics) - Social History Does the pt smoke?: Yes Smoking Status: Current every day smoker Does the pt drink ETOH?: No Does the pt have substance abuse?: No - Immunizations Immunizations are current?: Yes - POLST Patient has POLST: No POLST Status: Full Code PD ED PE NORMAL - Vitals Vital signs reviewed: Yes - General General: Alert and oriented X 3, No acute distress - HEENT HEENT: PERRL, Moist mucous membranes - Cardiac Cardiac: RRR, No murmur - Respiratory Respiratory: Clear bilaterally - Abdomen Abdomen: Normal bowel sounds, Soft, Non tender, Non distended - Derm Derm: Warm and dry - Extremities Extremities: No deformity - Neuro Neuro: Alert and oriented X 3 - Psych Psych: Normal mood, Normal affect Results - Vitals Vitals: Vital Signs - 24 hr 09/10/21 09/10/21 16:18 18:24 Temperature 36.4 C L Heart Rate 107 H 71 Respiratory 17 16 Rate Blood Pressure 144/102 H 142/108 H O2 Saturation 99 100 Oxygen O2 Source Room air - EKG (time done) 1704 Rate: Rate (enter#) (89) Rhythm: NSR Aguir[place]: Normal Intervals: Normal UT, Wide QRS, LBBB - Labs Labs: Laboratory Tests 09/10/21 09/10/21 09/10/21 17:20 17:20 17:47 WBC 5.7 RBC 3.59 L Hgb 12.5 Hct 37.8 MCV 105.3 H MCH 34.8 H MCHC 33.1 RDW 14.2 Plt Count 136 MPV 10.0 Neut # (Auto) 3.5 Lymph # (Auto) 1.7 [place] # (Auto) 0.4 Eos # (Auto) 0.1 Baso # (Auto) 0.0 Absolute Nucleated RBC 0.00 Nucleated RBC % 0.0 Sodium 137 Potassium 3.8 Chloride 97 L Carbon Dioxide 29 Anion Gap 11.0 BUN 9 Creatinine 0.6 Estimated GFR (MDRD) 102 Glucose 109 H Calcium 9.4 Total Bilirubin 0.9 AST 39 ALT 36 Alkaline Phosphatase 67 Troponin I High Sens 8.9 Total Protein 7.3 Albumin 4.0 Globulin 3.3 Albumin/Globulin Ratio 1.2 Lipase 28 Ethyl Alcohol < 5.0 - Rads (name of study) cxr Radiology: Final report received, EMP read contemporaneously, See rad report (no acute abnormality) PD MEDICAL DECISION MAKING - ED course Complexity details: reviewed results, re-evaluated patient, considered differential, d/w patient ED course: 61-year-old female with what appears to be gastritis/peptic ulcer disease. No evidence of acute coronary syndrome. Feels better after GI cocktail. Patient is well-appearing, nontoxic. Afebrile. Patient counseled regarding signs and symptoms for which I believe and urgent re-evaluation would be necessary. Patient with good understanding of and agreement to plan and is comfortable going home at this time This document was made in part using voice recognition software. While efforts are made to proofread this document, sound alike and grammatical errors may occur. Departure - Departure Disposition: 01 Home, Self Care Clinical Impression: Esophagitis Gastritis Qualifiers: Gastritis type: unspecified gastritis Chronicity: acute Gastritis bleeding: without bleeding Qualified Code(s): K29.00 - Acute gastritis without bleeding Condition: Good Instructions: ED PUD Vs Gastritis Follow-Up: your,doctor in 1 week [Other] Prescriptions: Sucralfate [Carafate] 1 gm PO ACHS #60 tablet Esomeprazole Magnesium [Nexium] 40 mg PO DAILY #30 cap.sr Famotidine [Pepcid] 20 mg PO BID #60 tablet Comments: Please follow-up with your doctor for further care. They can refer you to be scheduled for a endoscopy. Use the medications as prescribed. Eat a very bland diet. Stay away from fried foods, spicy foods, caffeine, energy drinks, coffee, alcohol, nonsteroidal anti-inflammatory medications such as Aleve or Motrin. Return if you worsen Your prescriptions were sent to [facility] in [place] Discharge Date/Time: 09/10/21 18:41
[2021-09-10 17:44] LABS: ALBUMIN/GLOBULIN RATIO 1.2 (1.0-2.2); ALKALINE PHOSPHATASE 67 IU/L (42-121); ALT ALANINE AMINOTRANSFERASE 36 IU/L (10-60); AST ASPARTATE AMINOTRANSFERASE 39 IU/L (10-42); BILIRUBIN,TOTAL 0.9 mg/dL (0.2-1.0); BUN - BLOOD UREA NITROGEN 9 mg/dL (6-20); CALCIUM 9.4 mg/dL (8.5-10.3); CARBON DIOXIDE - CO2 29 mmol/L (21-32); CHLORIDE 97 mmol/L (101-111); CREATININE 0.6 mg/dL (0.4-1.0); ETOH - ETHANOL < 5.0 mg/dL; GFR - MDRD 102 (>89); GLUCOSE 109 mg/dL (70-100); LIPASE 28 U/L (22-51); POTASSIUM 3.8 mmol/L (3.5-5.0); SODIUM 137 mmol/L (135-145); TOTAL PROTEIN 7.3 g/dL (6.7-8.2)
--- NOTE | 2021-09-10 17:44 | XRAY Report ---
PROCEDURE: Chest 1 View X-Ray INDICATIONS: chest pain TECHNIQUE: One view of the chest was acquired. COMPARISON: 05/30/2021 FINDINGS: Surgical changes and devices: None. Lungs and pleura: No pleural effusions or pneumothorax. Lungs are clear. Mediastinum: Mediastinal contours appear normal. Heart size is normal. Bones and chest wall: No suspicious bony lesions. Overlying soft tissues appear unremarkable. IMPRESSION: No acute cardiopulmonary findings Reviewed by: Brando Richards MD on 09/10/2021 4:43 PM [facility]DT Approved by: Brando Richards MD on 09/10/2021 4:43 PM AKDT Station ID: [id number]
[2021-09-10 17:51] LABS: BASOPHILS % (AUTO) 0.4 %; EOSINOPHILS # (AUTO) 0.1 10^3/uL (0.0-0.7); EOSINOPHILS % (AUTO) 1.4 %; HCT - HEMATOCRIT 37.8 % (37.0-47.0); HGB - HEMOGLOBIN 12.5 g/dL (12.0-16.0); LYMPHOCYTES # (AUTO) 1.7 10^3/uL (1.5-3.5); LYMPHOCYTES % (AUTO) 29.7 %; MEAN CORPUSCULAR HEMOGLOBIN 34.8 pg (27.0-31.0); MEAN CORPUSCULAR HGB CONC 33.1 g/dL (32.0-36.0); MEAN CORPUSCULAR VOLUME 105.3 fL (81.0-99.0); MONOCYTES # (AUTO) 0.4 10^3/uL (0.0-1.0); NEUTROPHILS # (AUTO) 3.5 10^3/uL (1.5-6.6); NEUTROPHILS % (AUTO) 61.3 %; PLT - PLATELET COUNT 136 10^3/uL (130-450); RED BLOOD COUNT 3.59 10^6/uL (4.20-5.40); RED CELL DISTRIBUTION WIDTH 14.2 % (12.0-15.0); WHITE BLOOD COUNT 5.7 x10^3/uL (4.8-10.8)
[2021-09-10 18:34] VITALS: BP 142/108
== END 2021-09-10 18:41 | disposition home or self-care (01) ==
LOC: ED 16:16
DX: K20.90 Esophagitis, unspecified without bleeding (principal); K29.00 Acute gastritis without bleeding; F17.200 Nicotine dependence, unspecified, uncomplicated
CPT/HCPCS: 36415; 71045; 80053; 80320; 83690; 84484; 85025; 93005; 99284; A9270

== ENCOUNTER 2021-09-11 17:16 | Emergency (ER) | payer MEDICAID ==
[2021-09-11] MEDS ORDERED: LIDOCAINE VISCOUS 2% 15 ML UDC MM STA (18:26)
[2021-09-11] MEDS ORDERED: MAG HYDROX/AL HYDROX/SIMETH 30 ML UDC PO STA (18:26)
[2021-09-11] MEDS ORDERED: SUCRALFATE 1 GM/10 ML UDC PO STA (18:26)
[2021-09-11] MEDS ORDERED: HYDROcod/ACETAM 5/325 MG TABLET PO STA (18:26)
[2021-09-11] MEDS ORDERED: SUMAtriptan 6 MG/0.5 ML VIAL SUBQ STA (18:59)
--- NOTE | 2021-09-11 19:02 | ED Physician Documentation ---
History of Present Illness - Stated complaint Stated Complaint: INNER CHEST BURNING - Chief complaint Chief Complaint: Abd Pain - History obtained from History obtained from: Patient - History of Present Illness Timing: How many days ago (several days) Pain level max: 7 Pain level now: 5 - Additonal information Additional information: Patient is a 61-year-old female who presents to the emergency department with epigastric and burning pain in her chest up to the back of her throat. Seen here yesterday for gastritis/reflux. She states that she filled her medications today but is still having pain. She is requesting something for pain. No vomiting. Worse with eating and drinking, nothing makes it better. No fevers. No chills. Review of Systems Constitutional: denies: Fever, Chills Respiratory: denies: Cough GI: denies: Nausea, Vomiting, Diarrhea : denies: Dysuria Skin: denies: Rash Musculoskeletal: denies: Neck pain, Back pain Neurologic: denies: Headache PD PAST MEDICAL HISTORY - Past Medical History Cardiovascular: Hypertension, High cholesterol Respiratory: None Neuro: None Endocrine/Autoimmune: None GI: None [employer]: None : None HEENT: None Psych: Depression Musculoskeletal: Chronic back pain Derm: None - Past Surgical History Past Surgical History: Yes Ortho: Spine surgery /[employer]: section - Present Medications Home Medications: Ambulatory Orders Medication Instructions Recorded Confirmed DULoxetine [Cymbalta] 60 mg PO DAILY 10/11/18 07/20/20 busPIRone [Buspar] 15 mg PO BID 10/11/18 07/20/20 traZODone [Desyrel] 150 mg PO QPM 10/11/18 07/20/20 Meloxicam 15 mg PO DAILY 11/20/19 07/20/20 Alendronate [Fosamax] 70 mg PO FR 11/21/19 07/20/20 Furosemide 40 mg PO DAILY PRN 11/21/19 07/20/20 Metoprolol Succinate [Toprol Xl] 25 mg PO BID 11/21/19 07/20/20 SUMAtriptan succinate [Sumatriptan 6 mg SQ ONCE PRN 11/21/19 07/20/20 Succinate] Venlafaxine HCl 75 mg PO DAILY 11/21/19 07/20/20 Vitamin [Trinatal Rx 1] 1 tab PO DAILYWM #30 tablet 11/27/19 07/20/20 Thiamine [Vitamin B-1] 100 mg PO DAILY #30 tablet 11/27/19 07/20/20 Baclofen 10 mg PO TID 02/06/20 07/20/20 Estrogens, Conjugated Cream 1 applic VG DAILY 02/06/20 07/20/20 [Premarin Cream] Gabapentin [Neurontin] 800 mg PO TID 02/06/20 07/20/20 SUMAtriptan succinate [Sumatriptan 100 mg PO DAILY PRN 02/06/20 07/20/20 Succinate] Albuterol Sulfate [Albuterol 8.5 gm IH Q4HR PRN #7 hfa.aer.ad 02/11/20 07/20/20 Sulfate Hfa] Cyclobenzaprine [Flexeril] 10 mg PO TID PRN #20 tab 07/20/20 Famotidine [Acid-Pep] 20 mg PO DAILY 07/20/20 07/20/20 HYDROcod/ACETAM 5/325 [[place] 5/325] 1 - 2 ea PO Q6H PRN #8 tab 07/20/20 HYDROcod/ACETAM 5/325 [[place] 5/325] 1 - 2 tablet PO Q6H PRN #10 tablet 12/20/20 Nitrofurantoin [Macrobid] 1 cap PO BID #10 cap 04/03/21 Albuterol Sulf [Ventolin Hfa 1 - 2 puffs INH Q4HR PRN #1 inhaler 05/30/21 Inhaler] Benzonatate [Tessalon] 100 mg PO TID PRN #20 cap 05/30/21 Guaifenesin/Pseudoephedrne HCl 1 each PO BID PRN #20 tab 05/30/21 [Mucinex D ER 1,200-120 mg Tab] Nitrofurantoin [Macrobid] 1 cap PO BID #10 cap 06/02/21 Phenazopyridine HCl [Pyridium] 200 mg PO TID PRN #6 tablet 06/02/21 guaiFENesin/CODEINE [Robitussin AC] 5 - 10 ml PO Q6H PRN #120 ml 06/02/21 Nitrofurantoin [Macrobid] 100 mg PO BID #10 cap 07/04/21 Esomeprazole Magnesium [Nexium] 40 mg PO DAILY #30 cap.sr 09/10/21 Famotidine [Pepcid] 20 mg PO BID #60 tablet 09/10/21 Sucralfate [Carafate] 1 gm PO ACHS #60 tablet 09/10/21 HYDROcod/ACETAM 5/325 [[place] 5/325] 1 - 2 ea PO Q6H PRN #14 tablet 09/11/21 - Allergies Allergies/Adverse Reactions: Allergies Allergy/AdvReac Type Severity Reaction Status Date / Time pregabalin [From Lyrica] Allergy Hives Verified 09/11/21 17:25 adhesive tape AdvReac Rash Verified 09/11/21 17:25 Sulfa (Sulfonamide AdvReac Itching Verified 09/11/21 17:25 Antibiotics) - Social History Does the pt smoke?: Yes Smoking Status: Current every day smoker Does the pt drink ETOH?: No Does the pt have substance abuse?: No - Immunizations Immunizations are current?: Yes - POLST Patient has POLST: No POLST Status: Full Code PD ED PE NORMAL - Vitals Vital signs reviewed: Yes - General General: Alert and oriented X 3, No acute distress - HEENT HEENT: Moist mucous membranes, Pharynx benign - Neck Neck: Supple, no meningeal sign - Cardiac Cardiac: RRR - Respiratory Respiratory: No respiratory distress, Clear bilaterally - Abdomen Abdomen: Soft, Non tender, Non distended - Derm Derm: Warm and dry - Neuro Neuro: Alert and oriented X 3 - Psych Psych: Normal mood, Normal affect Results - Vitals Vitals: Vital Signs - 24 hr 09/11/21 09/11/21 17:25 19:19 Temperature 36.8 C 36.9 C Heart Rate 107 H 85 Respiratory 20 20 Rate Blood Pressure 131/117 H 150/98 H O2 Saturation 96 96 Oxygen O2 Source Room air PD MEDICAL DECISION MAKING - ED course Complexity details: reviewed old records, considered differential, d/w patient ED course: 61-year-old female with gastritis and likely esophagitis. Feels better after GI cocktail and pain medication. Will prescribe a small amount of pain medication to get her through the next few days while the other medications kick in. Recommend she follow-up closely with the surgeon for an endoscopy to confirm diagnosis. No indication for repeat blood work today. Patient also had a headache while in the emergency department and was given Imitrex which resolved the headache. Patient counseled regarding signs and symptoms for which I believe and urgent re-evaluation would be necessary. Patient with good understanding of and agreement to plan and is comfortable going home at this time This document was made in part using voice recognition software. While efforts are made to proofread this document, sound alike and grammatical errors may occur. Departure - Departure Disposition: Home, Self Care Clinical Impression: Gastritis Qualifiers: Gastritis type: unspecified gastritis Chronicity: acute Gastritis bleeding: without bleeding Qualified Code(s): K29.00 - Acute gastritis without bleeding Condition: Good Instructions: ED PUD Vs Gastritis Follow-Up: your,doctor in 3 days [Other] Surgical Care [Provider Group] Prescriptions: HYDROcod/ACETAM 5/325 [[place] 5/325] 1 - 2 ea PO Q6H PRN #14 tablet PRN Reason: Pain Comments: Your pain medication was sent to [facility] in [place]. You can take this while the other medications begin to work. Please follow-up with your doctor for further care. I am prescribing a short course of narcotic pain medication for you. These are potentially dangerous and addictive medications that should be used carefully. These medications may constipate you. Take an [id number] stool softener (docusate) twice daily with plenty of water while taking these medications. If you go 24 hours without a bowel movement, take [id number] miralax, per package instructions. Do not drink or drive while taking these medications. If you received narcotic or sedating medications while in the emergency department, do not drive for 24 hours. Store this medication in a safe, secure place and out of reach of children. It is a violation of federal law to give or sell this medication to another person or to use in a manner other than prescribed. The ED will not refill narcotic prescriptions, including prescriptions lost or stolen. To dispose of unwanted medications: 1. [facility] at [address] in [place] has a medication drop box. They accept prescription medications (in pill form) Saturday through Saturday 9:00 a.m. to 5:00 p.m. 2. [facility] [employer] accepts prescription medications (in pill form only) for disposal year round. Call for more information. 3. Contact the [facility] for the next [employer] sponsored prescription drug collection event. , [phone], or [phone]; Discharge Date/Time: 09/11/21 19:38
[2021-09-11 19:20] VITALS: BP 150/98
== END 2021-09-11 19:38 | disposition home or self-care (01) ==
LOC: ED 17:16
DX: K29.00 Acute gastritis without bleeding (principal); R51.9 Headache, unspecified; F17.200 Nicotine dependence, unspecified, uncomplicated
CPT/HCPCS: 93005; 96372; 99282; 99283; A9270

== ENCOUNTER 2021-11-04 13:21 | Outpatient (CLI) | payer MEDICAID | END 2021-11-04 13:22 | disposition critical access hospital (66) | LOC: EMS 13:21 | DX: R00.2 Palpitations (principal); R07.89 Other chest pain; F41.9 Anxiety disorder, unspecified | CPT/HCPCS: A0425; A0427; A0999 ==

== ENCOUNTER 2021-11-04 13:27 | Emergency (ER) | payer MEDICAID ==
--- NOTE | 2021-11-04 13:30 | ED Physician Documentation ---
PD HPI CHEST PAIN - Stated complaint Stated Complaint: CHEST DISCOMFORT - History obtained from History obtained from: Patient - History of Present Illness Timing - onset: How many days ago (2-3) Timing - onset during: Rest, Light activity Timing - duration: Minutes Timing - details: Abrupt onset (she has noted feeling of palpitations/forceful heart beating intermittently over the past few days. Lasts for several minutes at a time. Does not feel fast per se, nor pain, but is "uncomfortable".), Intermittant. No: Still present Quality: Other ("uncomfortable"). No: Aching, Sharp Location: No: Substernal Radiation: No: Neck, Back Improved by: No: Rest Associated symptoms: Palpitations. No: Shortness of air, Diaphoresis, Feeling faint / dizzy, Cough Similar symptoms before: No diagnosis (she has had similar in the past, with Holter type rhythm recorder that was normal about 6-7 years ago. No known ACS/rhythm disturbance.) Recently seen: Not recently seen (she states she missed couple of appts with PCP and so was dismissed from the practice. She states she is out of 3 meds that ran out middle of month. She is hoping for refill of meds until getting new PCP.) Review of Systems Constitutional: denies: Fever Nose: denies: Rhinorrhea / runny nose, Congestion Throat: denies: Sore throat Cardiac: reports: Palpitations. 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 - Present Medications Home Medications: Ambulatory Orders Medication Instructions Recorded Confirmed DULoxetine [Cymbalta] 60 mg PO DAILY 10/11/18 11/04/21 busPIRone [Buspar] 15 mg PO BID 10/11/18 11/04/21 traZODone [Desyrel] 150 mg PO QPM 10/11/18 11/04/21 Meloxicam 15 mg PO DAILY 11/20/19 11/04/21 Alendronate [Fosamax] 70 mg PO FR 11/21/19 11/04/21 Furosemide 40 mg PO DAILY PRN 11/21/19 11/04/21 Metoprolol Succinate [Toprol Xl] 25 mg PO BID 11/21/19 11/04/21 SUMAtriptan succinate [Sumatriptan 6 mg SQ ONCE PRN 11/21/19 11/04/21 Succinate] Venlafaxine HCl 75 mg PO DAILY 11/21/19 11/04/21 Baclofen 10 mg PO TID 02/06/20 11/04/21 Estrogens, Conjugated Cream 1 applic VG DAILY 02/06/20 11/04/21 [Premarin Cream] Gabapentin [Neurontin] 800 mg PO TID 02/06/20 11/04/21 SUMAtriptan succinate [Sumatriptan 100 mg PO DAILY PRN 02/06/20 11/04/21 Succinate] Famotidine [Pepcid] 20 mg PO BID #60 tablet 09/10/21 11/04/21 Meloxicam [Mobic] 7.5 mg PO BID 15 Days #30 tablet 11/04/21 Metoprolol Succinate [Toprol Xl] 25 mg PO DAILY 30 Days #30 tablet 11/04/21 Venlafaxine HCl 75 mg PO DAILY 30 Days #30 tablet 11/04/21 tiZANidine [Zanaflex] 4 mg PO BID PRN #25 tablet 11/04/21 - Allergies Allergies/Adverse Reactions: Allergies Allergy/AdvReac Type Severity Reaction Status Date / Time pregabalin [From Lyrica] Allergy Hives Verified 09/11/21 17:25 adhesive tape AdvReac Rash Verified 09/11/21 17:25 Sulfa (Sulfonamide AdvReac Itching Verified 09/11/21 17:25 Antibiotics) - Living Situation Living Situation: reports: Alone Living Arrangement: reports: At home - Social History Does the pt smoke?: Yes Smoking Status: Current every day smoker Does the pt drink ETOH?: Yes ETOH Use: Other (she drinks regularly. She is not wanting alcohol treatment/det ox placement at this time. ) Does the pt have substance abuse?: No - Immunizations Immunizations are current?: Yes - POLST Patient has POLST: No POLST Status: Full Code PD ED PE NORMAL - Vitals Vital signs reviewed: Yes - General General: Alert and oriented X 3, Well developed/nourished, Other (mild slurring of speech c/w intoxication. ) - HEENT HEENT: PERRL (nonicteric), EOMI, Moist mucous membranes, Pharynx benign - Neck Neck: Supple, no meningeal sign, No adenopathy - Cardiac Cardiac: RRR, No murmur - Respiratory Respiratory: Clear bilaterally - Abdomen Abdomen: Soft, Non tender - Derm Derm: Normal color, Warm and dry - Extremities Extremities: No edema, No calf tenderness / cord - Neuro Neuro: Alert and oriented X 3, No motor deficit, No sensory deficit, Normal speech Eye Opening: Spontaneous Motor: Obeys Commands Verbal: Oriented GCS Score: 15 - Psych Psych: No: Normal mood (sad/tearful due to concern of ACS.) Results - Vitals Vitals: Vital Signs - 24 hr 11/04/21 11/04/21 11/04/21 13:37 14:12 14:30 Temperature 37.8 C Heart Rate 100 98 97 Respiratory 25 H 20 17 Rate Blood Pressure 149/103 H 125/101 H 135/104 H O2 Saturation 97 99 98 11/04/21 11/04/21 11/04/21 15:00 15:30 16:00 Temperature Heart Rate 99 99 94 Respiratory 20 17 12 Rate Blood Pressure 158/112 H 156/96 H 152/88 H O2 Saturation 93 99 100 Oxygen O2 Source Room air - EKG (time done) 13:44 Rate: Rate (enter#) (91) Rhythm: NSR [place]: Normal Intervals: LBBB QRS: LVH Ischemia: Non specific changes Compare to prior EKG: Unchanged from prior EKG (from September 2021) - Labs Labs: Laboratory Tests 11/04/21 11/04/21 11/04/21 13:59 13:59 13:59 WBC 5.8 RBC 4.36 Hgb 14.8 Hct 44.4 MCV 101.8 H MCH 33.9 H MCHC 33.3 RDW 13.2 Plt Count 210 MPV 8.6 Neut # (Auto) 2.2 Lymph # (Auto) 3.2 Noble # (Auto) 0.3 Eos # (Auto) 0.0 Baso # (Auto) 0.0 Absolute Nucleated RBC 0.00 Nucleated RBC % 0.0 Sodium 145 Potassium 4.4 Chloride 103 Carbon Dioxide 25 Anion Gap 17.0 H BUN 12 Creatinine 0.7 Estimated GFR (MDRD) 86 L Glucose 90 Calcium 9.6 Magnesium 2.2 Total Bilirubin 0.6 AST 61 H ALT 49 Alkaline Phosphatase 70 Troponin I High Sens 5.6 B-Natriuretic Peptide Total Protein 8.0 Albumin 4.8 Globulin 3.2 Albumin/Globulin Ratio 1.5 Lipase 27 Ethyl Alcohol 299.3 11/04/21 13:59 WBC RBC Hgb Hct MCV MCH MCHC RDW Plt Count MPV Neut # (Auto) Lymph # (Auto) Noble # (Auto) Eos # (Auto) Baso # (Auto) Absolute Nucleated RBC Nucleated RBC % Sodium Potassium Chloride Carbon Dioxide Anion Gap BUN Creatinine Estimated GFR (MDRD) Glucose Calcium Magnesium Total Bilirubin AST ALT Alkaline Phosphatase Troponin I High Sens B-Natriuretic Peptide 9 Total Protein Albumin Globulin Albumin/Globulin Ratio Lipase Ethyl Alcohol - Rads (name of study) chest xray Radiology: Prelim report reviewed, See rad report PD MEDICAL DECISION MAKING - ED course Complexity details: reviewed results (normal labs, CXR. ECG unchanged from recent one.), re-evaluated patient (sounds like palpitations vs atril fib. EXG is okay. labs without signs of AMI/CHF. Can treat with hydration. She had been on betablockers in stella past, so I offered that out as a possible treatment for the palpitations. Shared agreement that I will give Rx for her meds that she ran out of, to allow t), considered differential (intermittent periods of palpitations/forceful heart beats then resolves. No pain per se. Not exertional. Notes it more when rested. ), d/w patient Departure - Departure Disposition: Home, Self Care Clinical Impression: Heart palpitations Alcohol intoxication Qualifiers: Complication of substance-induced condition: uncomplicated Qualified Code(s): F10.920 - Alcohol use, unspecified with intoxication, uncomplicated Back pain Qualifiers: Back pain location: low back pain Chronicity: chronic Back pain laterality: unspecified Sciatica presence: without sciatica Qualified Code(s): M54.50 - Low back pain, unspecified Depression Qualifiers: Depression Type: unspecified Qualified Code(s): F32.A - Depression, unspecified Condition: Stable Record reviewed to determine appropriate education?: Yes Instructions: ED Palpitations Follow-Up: [facility] [Provider Group] Thomas Saxena MD [Provider Admit Priv/Credential] - Prescriptions: Meloxicam [Mobic] 7.5 mg PO BID 15 Days #30 tablet Metoprolol Succinate [Toprol Xl] 25 mg PO DAILY 30 Days #30 tablet Venlafaxine HCl 75 mg PO DAILY 30 Days #30 tablet tiZANidine [Zanaflex] 4 mg PO BID PRN #25 tablet PRN Reason: Spasms Comments: Your EKG, chest x-ray, blood tests are good without any signs of heart attack, heart failure or fluid in the lungs. Minimize alcohol and try to stop alcohol drinking if you can. Seek medical help for alcohol treatment. Stay well-hydrated. These modifications will likely help your palpitations feeling the most. Additionally you can have a decrease in the amount of palpitations you feel with use of a low-dose beta-lynn such as metoprolol daily. Looks like you had been prescribed that a couple of years ago for either blood pressure or palpitations. For your back pain, I would suggest I can anti-inflammatory such as meloxicam once or twice daily and muscle relaxant. I wrote prescription for tizanidine to use twice daily if needed for spasms and stiffness. To that add Tylenol every 6 hours if needed for pains. I wrote a refill prescription for your venlafaxine to take daily as well until you are able to find a new primary care and get set up for refills. Also provided the name of a field care manager out of [place] who does clinics up here on would be. Follow-up with them, call for an appointment, to further evaluate the palpitations. Potential can be wearing of a heart monitor that record your rhythm over a week or 2 and possibly ultrasound of your heart to evaluate the valves etc. I transmitted your prescriptions to the [facility] pharmacy here in [place]. Discharge Date/Time: 11/04/21 16:27
[2021-11-04] MEDS ORDERED: SODIUM CHLORIDE 0.9% 1,000 ML IV STA (13:45)
[2021-11-04 14:05] LABS: BASOPHILS % (AUTO) 0.5 %; EOSINOPHILS % (AUTO) 0.7 %; HCT - HEMATOCRIT 44.4 % (37.0-47.0); HGB - HEMOGLOBIN 14.8 g/dL (12.0-16.0); LYMPHOCYTES # (AUTO) 3.2 10^3/uL (1.5-3.5); LYMPHOCYTES % (AUTO) 56.3 %; MEAN CORPUSCULAR HEMOGLOBIN 33.9 pg (27.0-31.0); MEAN CORPUSCULAR HGB CONC 33.3 g/dL (32.0-36.0); MEAN CORPUSCULAR VOLUME 101.8 fL (81.0-99.0); MEAN PLATELET VOLUME 8.6 fL (7.9-10.8); MONOCYTES # (AUTO) 0.3 10^3/uL (0.0-1.0); MONOCYTES % (AUTO) 4.9 %; NEUTROPHILS # (AUTO) 2.2 10^3/uL (1.5-6.6); NEUTROPHILS % (AUTO) 37.4 %; PLT - PLATELET COUNT 210 10^3/uL (130-450); RED BLOOD COUNT 4.36 10^6/uL (4.20-5.40); RED CELL DISTRIBUTION WIDTH 13.2 % (12.0-15.0); WHITE BLOOD COUNT 5.8 x10^3/uL (4.8-10.8)
[2021-11-04 14:21] LABS: ALBUMIN 4.8 g/dL (3.2-5.5); ALBUMIN/GLOBULIN RATIO 1.5 (1.0-2.2); BILIRUBIN,TOTAL 0.6 mg/dL (0.2-1.0); CALCIUM 9.6 mg/dL (8.5-10.3); CREATININE 0.7 mg/dL (0.4-1.0); ETOH - ETHANOL 299.3 mg/dL; MAGNESIUM 2.2 mg/dL (1.7-2.8); POTASSIUM 4.4 mmol/L (3.5-5.0)
--- NOTE | 2021-11-04 14:28 | XRAY Report ---
PROCEDURE: Chest 1 View X-Ray INDICATIONS: Chest Pain TECHNIQUE: One view of the chest was acquired. COMPARISON: Chest x-ray 09/10/2021 FINDINGS: Surgical changes and devices: None. Lungs and pleura: No pleural effusions or pneumothorax. Lungs are clear. Mediastinum: Mediastinal contours appear normal. Heart size is normal. Bones and chest wall: No suspicious bony lesions. Overlying soft tissues appear unremarkable. IMPRESSION: No acute pulmonary process. Reviewed by: Stephanie Camacho MD on 11/04/2021 2:26 PM PDT Approved by: Stephanie Camacho MD on 11/04/2021 2:26 PM PDT Station ID: [id number]
[2021-11-04 16:10] VITALS: BP 152/88
== END 2021-11-04 16:27 | disposition home or self-care (01) ==
LOC: EDUNIT# → EDBD → ED 13:27
DX: R00.2 Palpitations (principal); F10.920 Alcohol use, unspecified with intoxication, uncomplicated; M54.50 Low back pain, unspecified; F32.A Depression, unspecified; I10 Essential (primary) hypertension
CPT/HCPCS: 36415; 80053; 80320; 83690; 83735; 83880; 84484; 85025; 93005; 96360; 96361; 99284

== ENCOUNTER 2021-12-08 23:46 | Outpatient (CLI) | payer MEDICAID | END 2021-12-08 23:47 | disposition short-term general hospital (02) | LOC: EMS 23:46 | DX: R07.81 Pleurodynia (principal); W18.11XA Fall from or off toilet without subsequent striking against object, initial encounter; Y92.002 Bathroom of unspecified non-institutional (private) residence as the place of occurrence of the external cause | CPT/HCPCS: A0425; A0427; A0999 ==

== ENCOUNTER 2022-01-05 15:14 | Emergency (ER) | payer MEDICAID ==
--- OUTSIDE RECORDS SUMMARY | 2022-01-05 15:40 | EXTERNAL MEDICAL SUMMARY RPT | Continuity of Care Document ---
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 12/09/21 unknown) 00:36 (unknown) (no (unknown) (unknown) Total Bilirubin (units (unknown) date) 0.7 (0.2-1.3) unknown) mg/dL (unknown) (no (unknown) (unknown) Total Protein 7.6 (unit s (unknown) date) (6.3-8.2) g/dL unknown) (unknown) (no (unknown) (unknown) Trop I [Troponin I] (unit s (unknown) date) Stat unknown) (unknown) (no (unknown) (unknown) Troponin I (units (unk nown) date) Cancelled unknown) (unknown) (no (unknown) (unknown) Type(s) of exercise: (uni ts (unknown) date) walking and weight unknown) lifting (unknown) (no (unknown) (unknown) Vital Signs (units (un known) date) unknown) (unknown) (no (unknown) (unknown) Vital signs: (units (u nknown) date) unknown) (unknown) (no (unknown) (unknown) XR ribs LT min 3V w (unit s (unknown) date) CXR1V Stat unknown) (unknown) (no (unknown) (unknown) [Embedded Image Not (unit s (unknown) date) Available] unknown) (unknown) (no (unknown) (unknown) [SULFA (SULFONAMIDE (unit s (unknown) date) unknown) (unknown) (no (unknown) (unknown) adhesive tape (units ( unknown) date) [ADHESIVE TAPE] unknown) Allergy Unknown Verified 04/15/18 10:19 (unknown) (no (unknown) (unknown) alcohol intake: (units (unknown) date) former unknown) (unknown) (no (unknown) (unknown) alprazolam 0.5 mg (units (unknown) date) tablet 1.5 tab PO unknown) DAILY PRN Anxiety 10/25/17 04/15/18 (unknown) (no (unknown) (unknown) and called 911. She (unit s (unknown) date) notes that she has unknown) been drinking today. She states that at (unknown) (no (unknown) (unknown) appears intoxicated (units (unknown) date) complaining of severe unknown) rib pain anterior clavicular line ribs (unknown) (no (unknown) (unknown) area. She denies (units (unknown) date) recent fever, cough, unknown) chills, abdominal pain, vomiting, (unknown) (no (unknown) (unknown) asymmetries or (units (unknown) date) abnormalities unknown) (unknown) (no (unknown) (unknown) at [facility] (units (unknown) date) for ?unknown reasons unknown) ?that likely are related to multiple no- (unknown) (no (unknown) (unknown) chlordiazepoxide HCl (uni ts (unknown) date) 25 mg capsule 50 mg unknown) PO Q8H PRN 04/15/18 04/15/18 (unknown) (no (unknown) (unknown) chronic pain (units (u nknown) date) disorder recently unknown) discharged from her primary care doctor's office (unknown) (no (unknown) (unknown) clonidine HCl 0.1 mg (uni ts (unknown) date) tablet 0.1 mg PO BID unknown) #60 tabs 07/03/18 (unknown) (no (unknown) (unknown) confused in history (unit s (unknown) date) seems a bit muddled unknown) (unknown) (no (unknown) (unknown) diarrhea, headaches. (uni ts (unknown) date) unknown) (unknown) (no (unknown) (unknown) drinking today and (units (unknown) date) apparently fell off unknown) the toilet and was caught between the (unknown) (no (unknown) (unknown) every 12 hours day 3 (uni ts (unknown) date) and 1 tab at bedtime unknown) on day 4 (unknown) (no (unknown) (unknown) extricate herself (units (unknown) date) from that position, unknown) get into bed, call her boyfriend, get out (unknown) (no (unknown) (unknown) frequency: 3-4 (units (unknown) date) times per week unknown) (unknown) (no (unknown) (unknown) gabapentin 800 mg (units (unknown) date) tablet 800 mg PO TID unknown) #90 tabs 08/25/18 (unknown) (no (unknown) (unknown) hydrochlorothiazide (unit s (unknown) date) 12.5 mg tablet 12.5 unknown) mg PO DAILY #30 tabs 12/15/19 (unknown) (no (unknown) (unknown) iodine [IODINE] (units (unknown) date) Allergy Unknown unknown) Verified 04/15/18 10:19 (unknown) (no (unknown) (unknown) medicine has not (units (unknown) date) been prescribed this unknown) for ?awhile?. She is anxious frightened (unknown) (no (unknown) (unknown) of bed to let the (units (unknown) date) boyfriend into the unknown) house and he was concerned with her pain (unknown) (no (unknown) (unknown) oxazepam 15 mg (units (unknown) date) capsule See Rx unknown) Instructions PO DIRECTED 01/20/18 (unknown) (no (unknown) (unknown) pregabalin (units (unk nown) date) [PREGABALIN] Allergy unknown) Severe HIVES Verified 04/15/18 10:19 (unknown) (no (unknown) (unknown) release 24 hr (units ( unknown) date) unknown) (unknown) (no (unknown) (unknown) show appointments as (uni ts (unknown) date) she is unable to unknown) driving get to her appointments. She was (unknown) (no (unknown) (unknown) sumatriptan succinate (uni ts (unknown) date) 100 mg tablet 1 dose unknown) PO PRN PRN Migraine Headache 10/25/17 (unknown) (no (unknown) (unknown) that included in the (uni ts (unknown) date) HPI. unknown) (unknown) (no (unknown) (unknown) toilet and the wall (unit s (unknown) date) complaining of left unknown) lower rib pain. She was able to (unknown) (no (unknown) (unknown) trazodone 50 mg (units (unknown) date) tablet 150 mg PO HS unknown) #90 tabs 07/29/18 (unknown) (no (unknown) (unknown) tretinoin 0.1 % (units (unknown) date) topical cream 1 unknown) applictn topical Q3D #45 grams 12/18/17 (unknown) (no (unknown) (unknown) venlafaxine 75 mg (units (unknown) date) tablet,extended 75 mg unknown) PO QDAY #90 tabs 08/25/18 Result panel 8 (unknown) (no date) (unknown) (unknown) 319 mg/dL (unkn own) Result panel 9 (unknown) (no (unknown) (unknown) (no value) (units (unk nown) date) unknown) (unknown) (no (unknown) (unknown) Date of Service: (units (unknown) date) 12/09/21 unknown) (unknown) (no (unknown) (unknown) (no value) (units (unk nown) date) unknown) (unknown) (no (unknown) (unknown) 0.1 mg PO BID Qty: (units (unknown) date) 60 2RF unknown) (unknown) (no (unknown) (unknown) 12/09/21 00:58 (units (unknown) date) unknown) (unknown) (no (unknown) (unknown) 1 applictn TOP Q3D (units (unknown) date) Qty: 45 1RF unknown) (unknown) (no (unknown) (unknown) 1 dose PO PRN PRN (units (unknown) date) (Reason: Migraine unknown) Headache) (unknown) (no (unknown) (unknown) 1-2 tabs every 8 hrs (uni ts (unknown) date) unknown) (unknown) (no (unknown) (unknown) 1.5 tab PO DAILY PRN (uni ts (unknown) date) (Reason: Anxiety) unknown) (unknown) (no (unknown) (unknown) 12.5 mg PO DAILY (units (unknown) date) Qty: 30 0RF unknown) (unknown) (no (unknown) (unknown) 150 mg PO HS Qty: 90 (uni ts (unknown) date) 3RF unknown) (unknown) (no (unknown) (unknown) 50 mg PO Q8H PRN (units (unknown) date) unknown) (unknown) (no (unknown) (unknown) 75 mg PO QDAY Qty: (units (unknown) date) 90 1RF unknown) (unknown) (no (unknown) (unknown) 800 mg PO TID Qty: (units (unknown) date) 90 3RF unknown) (unknown) (no (unknown) (unknown) Allergies (units (unkn own) date) unknown) (unknown) (no (unknown) (unknown) Apply 1-2 grams to (units (unknown) date) affected area three unknown) times daily, rub in thouroghly ; (unknown) (no (unknown) (unknown) Documented By: EB (units (unknown) date) unknown) (unknown) (no (unknown) (unknown) Documented By: KP (units (unknown) date) unknown) (unknown) (no (unknown) (unknown) Dose Instruction: (units (unknown) date) unknown) (unknown) (no (unknown) (unknown) ED Orders (units (unkn own) date) unknown) (unknown) (no (unknown) (unknown) Emergency Report (units (unknown) date) unknown) (unknown) (no (unknown) (unknown) Home Medications (units (unknown) date) unknown) (unknown) (no (unknown) (unknown) [facility] [address] (uni ts (unknown) date) [address] [place] [address] unknown) [place] [address] (unknown) (no (unknown) (unknown) Lab Results (units (un known) date) unknown) (unknown) (no (unknown) (unknown) Label Comments: (units (unknown) date) unknown) (unknown) (no (unknown) (unknown) Last Admin: 12/09/21 (uni ts (unknown) date) 01:05 Dose: 1,000 unknown) mls/hr (unknown) (no (unknown) (unknown) Last Admin: 12/09/21 (uni ts (unknown) date) 01:05 Dose: 15 mg unknown) (unknown) (no (unknown) (unknown) Last Admin: 12/09/21 (uni ts (unknown) date) 01:25 Dose: Not unknown) Given (unknown) (no (unknown) (unknown) PO DIRECTED PRN; (unit s (unknown) date) unknown) (unknown) (no (unknown) (unknown) PRN Reason: Pain, (units (unknown) date) Severe (7-10) unknown) (unknown) (no (unknown) (unknown) Previous Rx's (units ( unknown) date) unknown) (unknown) (no (unknown) (unknown) Rx Instructions: (units (unknown) date) unknown) (unknown) (no (unknown) (unknown) See Rx Instructions (unit s (unknown) date) .ROUTE .COMPLEX Qty: unknown) 240 2RF (unknown) (no (unknown) (unknown) See Rx Instructions (unit s (unknown) date) PO DIRECTED PRN unknown) (Reason: alcohol withdrawal) Qty: 30 (unknown) (no (unknown) (unknown) Stop: 12/09/21 00:45 (uni ts (unknown) date) unknown) (unknown) (no (unknown) (unknown) Stop: 12/09/21 00:52 (uni ts (unknown) date) unknown) (unknown) (no (unknown) (unknown) Stop: 12/09/21 01:50 (uni ts (unknown) date) unknown) (unknown) (no (unknown) (unknown) Take 2 tabs by mouth (uni ts (unknown) date) every 6 hours day 1, unknown) 2 tabs every 8 hours day 2, 2 tabs (unknown) (no (unknown) (unknown) Take three tabs by (units (unknown) date) mouth every day unknown) (unknown) (no (unknown) (unknown) Vital Signs - 8 hr (units (unknown) date) unknown) (unknown) (no (unknown) (unknown) apply thin layer to (unit s (unknown) date) the affected area unknown) (unknown) (no (unknown) (unknown) takes states takes (units (unknown) date) if she hasn't fallen unknown) asleep (unknown) (no (unknown) (unknown) (no value) (units (unk nown) date) unknown) (unknown) (no (unknown) (unknown) 00:58 00:58 (units (un known) date) unknown) (unknown) (no (unknown) (unknown) 00:58 00:58 00:58 (units (unknown) date) unknown) (unknown) (no (unknown) (unknown) 12/09/21 12/09/21 (units (unknown) date) 12/09/21 Range/Units unknown) (unknown) (no (unknown) (unknown) 12/09/21 12/09/21 (units (unknown) date) Range/Units unknown) (unknown) (no (unknown) (unknown) KBGINIL (units (unkno wn) date) unknown) (unknown) (no (unknown) (unknown) You can use (units (un known) date) ibuprofen and Tylenol unknown) to help with the rib pain (unknown) (no (unknown) (unknown) You were quite (units (unknown) date) intoxicated with an unknown) alcohol level at 319 (unknown) (no (unknown) (unknown) alprazolam 0.5 mg (units (unknown) date) tablet unknown) (unknown) (no (unknown) (unknown) chlordiazepoxide HCl (uni ts (unknown) date) 25 mg capsule unknown) (unknown) (no (unknown) (unknown) clonidine HCl 0.1 mg (uni ts (unknown) date) tablet unknown) (unknown) (no (unknown) (unknown) gabapentin (units (unk nown) date) [Neurontin] 800 mg unknown) tablet (unknown) (no (unknown) (unknown) hydrochlorothiazide (unit s (unknown) date) 12.5 mg tablet unknown) (unknown) (no (unknown) (unknown) oxazepam 15 mg (units (unknown) date) capsule unknown) (unknown) (no (unknown) (unknown) sumatriptan (units (un known) date) succinate 100 mg unknown) tablet (unknown) (no (unknown) (unknown) trazodone 50 mg (units (unknown) date) tablet unknown) (unknown) (no (unknown) (unknown) tretinoin 0.1 % (units (unknown) date) cream unknown) (unknown) (no (unknown) (unknown) venlafaxine 75 mg (units (unknown) date) tablet extended unknown) release 24hr (unknown) (no (unknown) (unknown) .COMPLEX muscle (units (unknown) date) soreness #240 grams unknown) (unknown) (no (unknown) (unknown) 12/09/21 (units (unkno wn) date) unknown) (unknown) (no (unknown) (unknown) 61-year-old woman (units (unknown) date) presents after unknown) falling off the toilet him being caught (unknown) (no (unknown) (unknown) Complication of (units (unknown) date) substance-induced unknown) condition: uncomplicated Qualified Code(s): (unknown) (no (unknown) (unknown) Encounter type: (units (unknown) date) initial encounter unknown) Qualified Code(s): S20.212A - Contusion of (unknown) (no (unknown) (unknown) I would also (units (u nknown) date) encourage you to unknown) consider either outpatient or even inpatient (unknown) (no (unknown) (unknown) I would encourage (units (unknown) date) you to begin making unknown) phone calls to establish care with a new (unknown) (no (unknown) (unknown) Medication (units (unk nown) date) Instructions unknown) Recorded (unknown) (no (unknown) (unknown) Medication (units (unk nown) date) Instructions unknown) Recorded Confirmed (unknown) (no (unknown) (unknown) PRN alcohol (units (un known) date) withdrawal #30 caps unknown) (unknown) (no (unknown) (unknown) if she has a (units (u nknown) date) responsible sober unknown) person that is able and willing to come pick her (unknown) (no (unknown) (unknown) up she is able to be (uni ts (unknown) date) discharged home. unknown) (unknown) (no (unknown) (unknown) (Neurontin) (units (un known) date) unknown) (unknown) (no (unknown) (unknown) 00:40 12/09/21 (units (unknown) date) unknown) (unknown) (no (unknown) (unknown) 01:41 (units (unkno wn) date) unknown) (unknown) (no (unknown) (unknown) 01:41 12/09/21 (units (unknown) date) unknown) (unknown) (no (unknown) (unknown) [id number] (units (unkno wn) date) unknown) (unknown) (no (unknown) (unknown) 02:00 12/09/21 (units (unknown) date) unknown) (unknown) (no (unknown) (unknown) 02:30 (units (unkno wn) date) unknown) (unknown) (no (unknown) (unknown) 12/09/21 00:51 (units (unknown) date) unknown) (unknown) (no (unknown) (unknown) 12/09/21 00:57 (units (unknown) date) unknown) (unknown) (no (unknown) (unknown) 12/09/21 00:58 (units (unknown) date) unknown) (unknown) (no (unknown) (unknown) 0RF (units (unkno wn) date) unknown) (unknown) (no (unknown) (unknown) 1 point she had been (uni ts (unknown) date) on extra-strength unknown) hydrocodone 3 times a day as a scheduled (unknown) (no (unknown) (unknown) 11 and 12 left side (unit s (unknown) date) without any unknown) concurrent bruising abrasion or hematoma to the (unknown) (no (unknown) (unknown) 04/15/18 (units (unkno wn) date) unknown) (unknown) (no (unknown) (unknown) 61-year-old woman (units (unknown) date) with a history of unknown) alcohol use disorder and self described (unknown) (no (unknown) (unknown) ALT (<35) IU/L (units (unknown) date) unknown) (unknown) (no (unknown) (unknown) ALT 95 H (<35) (units (unknown) date) IU/L unknown) (unknown) (no (unknown) (unknown) ANTIBIOTICS)] (units ( unknown) date) unknown) (unknown) (no (unknown) (unknown) AST (14-36) IU/L (uni ts (unknown) date) unknown) (unknown) (no (unknown) (unknown) AST 173 H (units (un known) date) (14-36) IU/L unknown) (unknown) (no (unknown) (unknown) Abdomen: Soft, (units (unknown) date) nontender, good bowel unknown) tones, no flank pain (unknown) (no (unknown) (unknown) Activity (units (unkno wn) date) Restrictions/Addition unknown) al Instructions: (unknown) (no (unknown) (unknown) Age/Sex: 61 / F (units (unknown) date) unknown) (unknown) (no (unknown) (unknown) Albumin (3.5-5.0) (uni ts (unknown) date) g/dL unknown) (unknown) (no (unknown) (unknown) Albumin 4.7 (units ( unknown) date) (3.5-5.0) g/dL unknown) (unknown) (no (unknown) (unknown) Albumin/Globulin (units (unknown) date) Ratio (1.0-2.8) unknown) (unknown) (no (unknown) (unknown) Albumin/Globulin (units (unknown) date) Ratio 1.6 unknown) (1.0-2.8) (unknown) (no (unknown) (unknown) Alcohol abuse (units ( unknown) date) unknown) (unknown) (no (unknown) (unknown) Alcohol intoxication (uni ts (unknown) date) unknown) (unknown) (no (unknown) (unknown) Alkaline Phosphatase (uni ts (unknown) date) (38-126) U/L unknown) (unknown) (no (unknown) (unknown) Alkaline Phosphatase (uni ts (unknown) date) 93 (38-126) U/L unknown) (unknown) (no (unknown) (unknown) Allergy/AdvReac Type (uni ts (unknown) date) Severity Reaction unknown) Status Date / Time (unknown) (no (unknown) (unknown) Antibiotics) (units (u nknown) date) unknown) (unknown) (no (unknown) (unknown) Anxiety (units (unkno wn) date) unknown) (unknown) (no (unknown) (unknown) BUN (7-17) mg/dL (uni ts (unknown) date) unknown) (unknown) (no (unknown) (unknown) BUN 11 (7-17) (units (unknown) date) mg/dL unknown) (unknown) (no (unknown) (unknown) BUN/Creatinine Ratio (uni ts (unknown) date) (6-22) unknown) (unknown) (no (unknown) (unknown) BUN/Creatinine Ratio (uni ts (unknown) date) 17.7 (6-22) unknown) (unknown) (no (unknown) (unknown) Baso # (Auto) (units ( unknown) date) (0-100) /uL unknown) (unknown) (no (unknown) (unknown) Baso # (Auto) 0 (units (unknown) date) (0-100) /uL unknown) (unknown) (no (unknown) (unknown) Baso % (Auto) (units ( unknown) date) (0-2) % unknown) (unknown) (no (unknown) (unknown) Baso % (Auto) 0.6 (units (unknown) date) (0-2) % unknown) (unknown) (no (unknown) (unknown) Bicytopenia (units (un known) date) unknown) (unknown) (no (unknown) (unknown) Blood Pressure (units (unknown) date) unknown) (unknown) (no (unknown) (unknown) Blood Pressure (units (unknown) date) 149/99 H 12/09/21 unknown) 00:40 (unknown) (no (unknown) (unknown) Blood Pressure (units (unknown) date) 137/64 139/73 unknown) (unknown) (no (unknown) (unknown) Blood Pressure (units (unknown) date) 149/99 H 150/83 H unknown) (unknown) (no (unknown) (unknown) Brother No (units (unknown) date) problems noted. unknown) (unknown) (no (unknown) (unknown) COVID19 -Nasal (units (unknown) date) RAPID/Pre-Proc Stat unknown) (unknown) (no (unknown) (unknown) Calcium (units (unkno wn) date) (8.4-10.2) mg/dL unknown) (unknown) (no (unknown) (unknown) Calcium 7.7 L (units (unknown) date) (8.4-10.2) mg/dL unknown) (unknown) (no (unknown) (unknown) Carbon Dioxide (units (unknown) date) (22-32) mmol/L unknown) (unknown) (no (unknown) (unknown) Carbon Dioxide 20 (unit s (unknown) date) L (22-32) mmol/L unknown) (unknown) (no (unknown) (unknown) Cardiac: Regular (units (unknown) date) rate and rhythm no unknown) murmurs no bruits (unknown) (no (unknown) (unknown) Chest: tenderness (units (unknown) date) to palpation L lower unknown) anterior ribs with no bruising/abrasion (unknown) (no (unknown) (unknown) Chief complaint: (units (unknown) date) Fall unknown) (unknown) (no (unknown) (unknown) Chloride (98-107) (uni ts (unknown) date) mmol/L unknown) (unknown) (no (unknown) (unknown) Chloride 102 (units (unknown) date) (98-107) mmol/L unknown) (unknown) (no (unknown) (unknown) Chronic back pain (units (unknown) date) (2002) unknown) (unknown) (no (unknown) (unknown) Clinical Impression: (uni ts (unknown) date) unknown) (unknown) (no (unknown) (unknown) Complete Blood Count (uni ts (unknown) date) AUTO DIFF Stat unknown) (unknown) (no (unknown) (unknown) Comprehensive (units ( unknown) date) Metabolic Panel Stat unknown) (unknown) (no (unknown) (unknown) Consult to [employer] - (units (unknown) date) 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 unknown) (unknown) (no (unknown) (unknown) Contusion of rib on (unit s (unknown) date) left side unknown) (unknown) (no (unknown) (unknown) Course (units (unkno wn) date) unknown) (unknown) (no (unknown) (unknown) Creatinine (units (unk nown) date) (0.52-1.04) mg/dL unknown) (unknown) (no (unknown) (unknown) Creatinine 0.62 (units (unknown) date) (0.52-1.04) mg/dL unknown) (unknown) (no (unknown) (unknown) : 1960 (units (unknown) date) Acct:[id number] unknown) (unknown) (no (unknown) (unknown) Royer Mathur MD (unit s (unknown) date) [Primary Care unknown) Provider] - (unknown) (no (unknown) (unknown) Departure (units (unkn own) date) unknown) (unknown) (no (unknown) (unknown) Depression (units (unk nown) date) unknown) (unknown) (no (unknown) (unknown) Discharge Plan (units (unknown) date) unknown) (unknown) (no (unknown) (unknown) Discontinued (units (u nknown) date) Medications unknown) (unknown) (no (unknown) (unknown) ER Physician: (units ( unknown) date) Rowan Roth MD unknown) (unknown) (no (unknown) (unknown) ETOH [Ethanol (units ( unknown) date) (ETOH)] Stat unknown) (unknown) (no (unknown) (unknown) Eos # (Auto) (units (u nknown) date) (0-450) /uL unknown) (unknown) (no (unknown) (unknown) Eos # (Auto) 0 (units (unknown) date) (0-450) /uL unknown) (unknown) (no (unknown) (unknown) Eos % (Auto) (units (u nknown) date) (2-4) % unknown) (unknown) (no (unknown) (unknown) Eos % (Auto) 0.3 L (unit s (unknown) date) (2-4) % unknown) (unknown) (no (unknown) (unknown) Estimated GFR (units ( unknown) date) (>60) mL/min unknown) (unknown) (no (unknown) (unknown) Estimated GFR > 60 (uni ts (unknown) date) (>60) mL/min unknown) (unknown) (no (unknown) (unknown) Ethyl Alcohol ( - (uni ts (unknown) date) 10) mg/dL unknown) (unknown) (no (unknown) (unknown) Ethyl Alcohol 319 H (uni ts (unknown) date) ( - 10) mg/dL unknown) (unknown) (no (unknown) (unknown) Exam (units (unkno wn) date) unknown) (unknown) (no (unknown) (unknown) Extremities: No (units (unknown) date) trauma, well perfused unknown) (unknown) (no (unknown) (unknown) F10.920 - Alcohol (units (unknown) date) use, unspecified with unknown) intoxication, uncomplicated (unknown) (no (unknown) (unknown) Family History (units (unknown) date) (Reviewed 12/09/21 @ unknown) 02:02 by Rowan Roth MD) (unknown) (no (unknown) (unknown) Father No (units (unknown) date) problems noted. unknown) (unknown) (no (unknown) (unknown) Fentanyl (Fentanyl (units (unknown) date) 100 Mcg/2 Ml Inj) 50 unknown) mcg IV Q1H PRN (unknown) (no (unknown) (unknown) Full and symmetrical (uni ts (unknown) date) air movement unknown) (unknown) (no (unknown) (unknown) General (units (unkno wn) date) unknown) (unknown) (no (unknown) (unknown) General: (units (unkno wn) date) Chronically ill unknown) appearing, anxious and complaining of pain. Slightly (unknown) (no (unknown) (unknown) GenericComposite[Plt (uni ts (unknown) date) Count (150-400) unknown) X10^3/uL ] (unknown) (no (unknown) (unknown) GenericComposite[Plt (uni ts (unknown) date) Count 169 unknown) (150-400) X10^3/uL ] (unknown) (no (unknown) (unknown) GenericComposite[RBC (uni ts (unknown) date) (4.0-5.2) unknown) X10^6/uL ] (unknown) (no (unknown) (unknown) GenericComposite[RBC (uni ts (unknown) date) 4.14 (4.0-5.2) unknown) X10^6/uL ] (unknown) (no (unknown) (unknown) GenericComposite[WBC (uni ts (unknown) date) (4.5-11.0) unknown) X10^3/uL ] (unknown) (no (unknown) (unknown) GenericComposite[WBC (uni ts (unknown) date) 4.3 L (4.5-11.0) unknown) X10^3/uL ] (unknown) (no (unknown) (unknown) Globulin (units (unkno wn) date) (1.7-4.1) g/dL unknown) (unknown) (no (unknown) (unknown) Globulin 2.9 (units (unknown) date) (1.7-4.1) g/dL unknown) (unknown) (no (unknown) (unknown) Glucose (70-100) (unit s (unknown) date) mg/dL unknown) (unknown) (no (unknown) (unknown) Glucose 171 H (units (unknown) date) (70-100) mg/dL unknown) (unknown) (no (unknown) (unknown) Grandfather (units (un known) date) Heart unknown) disease (unknown) (no (unknown) (unknown) Grandfather (units (un known) date) Puncture unknown) wound of small intestine, open (unknown) (no (unknown) (unknown) Grandmother (units (un known) date) No unknown) problems noted. (unknown) (no (unknown) (unknown) Grandmother (units (un known) date) unknown) Alzheimer's disease (unknown) (no (unknown) (unknown) HEENT: Moist mucous (uni ts (unknown) date) membranes, normal unknown) sclera with reactive pupils, (unknown) (no (unknown) (unknown) HPI - General Adult (unit s (unknown) date) unknown) (unknown) (no (unknown) (unknown) HPI narrative: (units (unknown) date) unknown) (unknown) (no (unknown) (unknown) Hct (36-46) % (units (unknown) date) unknown) (unknown) (no (unknown) (unknown) Hct 41.7 (36-46) (uni ts (unknown) date) % unknown) (unknown) (no (unknown) (unknown) Hgb (12.0-16.0) (units (unknown) date) g/dL unknown) (unknown) (no (unknown) (unknown) Hgb 14.2 (units (unkn own) date) (12.0-16.0) g/dL unknown) (unknown) (no (unknown) (unknown) History of Present (units (unknown) date) Illness unknown) (unknown) (no (unknown) (unknown) History of lumbar (units (unknown) date) surgery (2001) unknown) (unknown) (no (unknown) (unknown) History of (units (unk nown) date) tonsillectomy (1979) unknown) (unknown) (no (unknown) (unknown) Hydralazine HCl (units (unknown) date) (Hydralazine 20 Mg/Ml unknown) Vial) 20 mg IV NOW ONE (unknown) (no (unknown) (unknown) If find you have new (uni ts (unknown) date) or worsening unknown) symptoms, please feel free to return to the (unknown) (no (unknown) (unknown) Initial Vital Signs (unit s (unknown) date) unknown) (unknown) (no (unknown) (unknown) Initial Vital Signs: (uni ts (unknown) date) unknown) (unknown) (no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 (unknown) (no (unknown) (unknown) iodine [IODINE] (units (unknown) date) Allergy Unknown unknown) Verified 04/15/18 10:19 (unknown) (no (unknown) (unknown) left front wall of (units (unknown) date) thorax, initial unknown) encounter (unknown) (no (unknown) (unknown) medicine has not (units (unknown) date) been prescribed this unknown) for ?awhile?. She is anxious frightened (unknown) (no (unknown) (unknown) of bed to let the (units (unknown) date) boyfriend into the unknown) house and he was concerned with her pain (unknown) (no (unknown) (unknown) oxazepam 15 mg (units (unknown) date) capsule See Rx unknown) Instructions PO DIRECTED 01/20/18 (unknown) (no (unknown) (unknown) pregabalin (units (unk nown) date) [PREGABALIN] Allergy unknown) Severe HIVES Verified 04/15/18 10:19 (unknown) (no (unknown) (unknown) primary care (units (u nknown) date) physician unknown) (unknown) (no (unknown) (unknown) release 24 hr (units ( unknown) date) unknown) (unknown) (no (unknown) (unknown) show appointments as (uni ts (unknown) date) she is unable to unknown) driving get to her appointments. She was (unknown) (no (unknown) (unknown) states her last drink (uni ts (unknown) date) was at 4 in the unknown) afternoon. Will work on home discharge, (unknown) (no (unknown) (unknown) sumatriptan succinate (uni ts (unknown) date) 100 mg tablet 1 dose unknown) PO PRN PRN Migraine Headache 10/25/17 (unknown) (no (unknown) (unknown) that included in the (uni ts (unknown) date) HPI. unknown) (unknown) (no (unknown) (unknown) the elbow, (units (unk nown) date) unknown) (unknown) (no (unknown) (unknown) toilet and the wall (unit s (unknown) date) complaining of left unknown) lower rib pain. She was able to (unknown) (no (unknown) (unknown) trazodone 50 mg (units (unknown) date) tablet 150 mg PO HS unknown) #90 tabs 07/29/18 (unknown) (no (unknown) (unknown) tretinoin 0.1 % (units (unknown) date) topical cream 1 unknown) applictn topical Q3D #45 grams 12/18/17 (unknown) (no (unknown) (unknown) venlafaxine 75 mg (units (unknown) date) tablet,extended 75 mg unknown) PO QDAY #90 tabs 08/25/18 Social History date description facility (no date) Never smoked tobacco (finding) [facility] Vital Signs date measurement value units +0000 BMI BMI 25.5 kg/m2 +0000 BP_diastolic BP_diastolic 90 mm[H g] +0000 BP_systolic BP_systolic 139 mm[Hg] +0000 heart_rate heart_rate 75 /min +0000 height_metric height_metric 175.26 cm +0000 height_standard height_standard 69 in +0000 respiration_rate respiration_rate 16 /min +0000 temperature_metric temperature_metric 37.39 C +0000 temperature_standard temperature_standard 9 9.3 F +0000 weight_metric weight_metric 78.47 kg +0000 weight_standard weight_standard 173 lb
--- NOTE | 2022-01-05 16:50 | XRAY Report ---
PROCEDURE: Ribs w/PA Chest LT INDICATIONS: pain from fall 3 weeks ago. TECHNIQUE: 2 views of the left ribs were acquired, along with a single view chest. COMPARISON: None FINDINGS: Surgical changes and devices: None. Bones and chest wall: No acute fractures or dislocations. Possible remote healed fractures seen. No suspicious bony lesions. Overlying soft tissues appear unremarkable. Lungs and pleura: No pleural effusions or pneumothorax. Lungs appear clear. Mediastinum: Mediastinal contours appear normal. Heart size is normal. IMPRESSION: Normal AP chest and left ribs. No fracture identified. Reviewed by: Farrukh Mendenhall on 01/05/2022 4:49 PM PDT Approved by: Farrukh Mendenhall on 01/05/2022 4:49 PM PDT Station ID: [id number]
[2022-01-05] MEDS ORDERED: KETOROLAC 30 MG/ML VIAL IM STA (16:54)
[2022-01-05] MEDS ORDERED: SODIUM CHLORIDE 0.9% 1,000 ML IV STA (16:55)
[2022-01-05] MEDS ORDERED: KETOROLAC 30 MG/ML VIAL IVP STA (16:56)
--- NOTE | 2022-01-05 16:59 | ED Physician Documentation ---
History of Present Illness - Stated complaint Stated Complaint: BROKEN RIBS - Chief complaint Chief Complaint: Cardiac - Additonal information Additional information: 61-year-old female presents emergency department complaining of left lateral rib pain. She apparently fell in early December. At that time she was treated at [facility]. She reports this provider that she was told she had broken ribs. She continues to have some pain with deep breath and persistent pain. The patient is familiar to us in the emergency department. Multiple presentations in the past. She often presents with an elevated blood alcohol or the appearance of intoxication. On today's presentation she is glassy eyed. She does smell heavily of alcohol. She denies drinking today and states however that she did drink heavily last night. Review of Systems Constitutional: denies: Fever, Chills Eyes: reports: Reviewed and negative Throat: reports: Dental pain / toothache Cardiac: reports: Other (Left chest wall pain) Respiratory: reports: Dyspnea. 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 GRINDER: None : None HEENT: None Psych: Depression Musculoskeletal: Chronic back pain Derm: None - Past Surgical History Past Surgical History: Yes Ortho: Spine surgery /SNAG GRINDER: section - Present Medications Home Medications: Ambulatory Orders Medication Instructions Recorded Confirmed DULoxetine [Cymbalta] 60 mg PO DAILY 10/11/18 11/04/21 busPIRone [Buspar] 15 mg PO BID 10/11/18 11/04/21 traZODone [Desyrel] 150 mg PO QPM 10/11/18 11/04/21 Meloxicam 15 mg PO DAILY 11/20/19 11/04/21 Alendronate [Fosamax] 70 mg PO FR 11/21/19 11/04/21 Furosemide 40 mg PO DAILY PRN 11/21/19 11/04/21 Metoprolol Succinate [Toprol Xl] 25 mg PO BID 11/21/19 11/04/21 SUMAtriptan succinate [Sumatriptan 6 mg SQ ONCE PRN 11/21/19 11/04/21 Succinate] Venlafaxine HCl 75 mg PO DAILY 11/21/19 11/04/21 Baclofen 10 mg PO TID 02/06/20 11/04/21 Estrogens, Conjugated Cream 1 applic VG DAILY 02/06/20 11/04/21 [Premarin Cream] Gabapentin [Neurontin] 800 mg PO TID 02/06/20 11/04/21 SUMAtriptan succinate [Sumatriptan 100 mg PO DAILY PRN 02/06/20 11/04/21 Succinate] Famotidine [Pepcid] 20 mg PO BID #60 tablet 09/10/21 11/04/21 Meloxicam [Mobic] 7.5 mg PO BID 15 Days #30 tablet 11/04/21 Metoprolol Succinate [Toprol Xl] 25 mg PO DAILY 30 Days #30 tablet 11/04/21 Venlafaxine HCl 75 mg PO DAILY 30 Days #30 tablet 11/04/21 tiZANidine [Zanaflex] 4 mg PO BID PRN #25 tablet 11/04/21 - Allergies Allergies/Adverse Reactions: Allergies Allergy/AdvReac Type Severity Reaction Status Date / Time pregabalin [From Lyrica] Allergy Hives Verified 01/05/22 15:38 adhesive tape AdvReac Rash Verified 01/05/22 15:38 Sulfa (Sulfonamide AdvReac Itching Verified 01/05/22 15:38 Antibiotics) - Social History Does the pt smoke?: Yes Smoking Status: Current every day smoker Does the pt drink ETOH?: Yes Does the pt have substance abuse?: No - Immunizations Immunizations are current?: Yes - POLST Patient has POLST: No POLST Status: Full Code PD ED PE EXPANDED - General General: Alert, No acute distress, Other (Glassy eyed. Smells heavily of alcohol) - Neck Neck: Supple w/out meningeal sx. No: Adenopathy - Cardiac Cardiac: Tachy, Radial strong equal, Pedal strong equal, Cap refill < 2 sec, Chest wall TTP (Mild tenderness elicited with percussion and palpation of the left chest wall. No crepitus, signs of resolving ecchymosis) - Respiratory Respiratory: Clear to ausultation los. No: Distress, Labored - Abdomen Abdomen: Normal Bowel sounds. No: Tender to palpation - Derm Derm: Normal color, Warm and dry. No: Rash - Extremities Extremities: Normal. No: Deformity, Tenderness - Neuro Neuro: Alert and Oriented X 3, CNII-XII intact - GCS Eye Opening: Spontaneous Motor: Obeys Commands Verbal: Oriented Total: 15 Results - Vitals Vitals: Vital Signs - 24 hr 01/05/22 01/05/22 15:29 15:49 Temperature 36.7 C Heart Rate 126 H 115 H Respiratory 18 20 Rate Blood Pressure 171/116 H O2 Saturation 96 92 Oxygen O2 Source Room air - Rads (name of study) cxr Radiology: Final report received (Normal AP chest and left ribs. No fracture identified) PD MEDICAL DECISION MAKING - ED course Complexity details: re-evaluated patient, considered differential, d/w patient ED course: 61-year-old female who is well-known to this emergency department presents for evaluation of left lateral rib pain. She reports a fall around 08 December. Information exchange indicates that she was seen initially at [facility]. Patient tells me that she had rib fractures. We did repeat chest x-ray and rib series today with no acute findings or fractures noted. Patient was administered 30 mg of Toradol here in the emergency department but given the history of heavy alcohol use as well as the appearance of intoxication today we did not prescribe any narcotics. She appears to be hemodynamically stable though she was tachycardic on presentation thus she was repleted with a liter of crystalloid. Following this her heart rate had decreased to 104. She called her father to be discharged home. Usual and emergent return precautions were discussed Departure - Departure Disposition: 01 Home, Self Care Clinical Impression: Left-sided chest wall pain, Alcohol abuse Comments: Angélica the x-ray of your chest and ribs do not show any broken bones. Here in the emergency department you did smell heavily of alcohol and you admitted to drinking last night. Your heart rate was a little high which sometimes indicates dehydration especially after drinking. We did give you a liter of IV fluids and your heart rate is improved. You are stable to be discharged home. You can continue to take your usual medications. For the chest wall pain I encourage you to take Tylenol 500 mg twice daily or alternate with ibuprofen 600 mg twice daily. The ibuprofen should be taken with food. If you develop severe chest pain or shortness of breath then please return immediately to the ER for a second evaluation
[2022-01-05 18:23] VITALS: BP 154/92
== END 2022-01-05 18:31 | disposition home or self-care (01) ==
LOC: ED 15:14
DX: R07.89 Other chest pain (principal); F10.10 Alcohol abuse, uncomplicated; F17.200 Nicotine dependence, unspecified, uncomplicated
CPT/HCPCS: 96374; 99282

== ENCOUNTER 2022-02-03 19:00 | Outpatient (CLI) | payer MEDICAID | END 2022-02-03 19:01 | disposition critical access hospital (66) | LOC: EMS 19:00 | DX: F10.129 Alcohol abuse with intoxication, unspecified (principal); R41.82 Altered mental status, unspecified; R47.81 Slurred speech; R26.9 Unspecified abnormalities of gait and mobility; S80.812A Abrasion, left lower leg, initial encounter; S80.811A Abrasion, right lower leg, initial encounter; W01.0XXA Fall on same level from slipping, tripping and stumbling without subsequent striking against object, initial encounter; Y93.01 Activity, walking, marching and hiking; Y92.413 State road as the place of occurrence of the external cause | CPT/HCPCS: A0425; A0429; A0999 ==

== ENCOUNTER 2022-08-16 19:25 | Emergency (ER) | payer MEDICAID ==
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
--- NOTE | 2022-08-16 21:02 | XRAY Report ---
PROCEDURE: Ankle 3 View RT INDICATIONS: pain after injury TECHNIQUE: 3 views of the ankle were acquired. COMPARISON: Right ankle x-ray 12/20/2020. FINDINGS: Bones: A mildly displaced spiral fracture of the distal fibula with corticated margins is redemonstra bishop. The findings suggest nonunion of a chronic fracture. Callus formation is again noted along the p osterior aspect. No definite acute fracture. Ankle mortise is normally aligned. No suspicious bony l esions. Soft tissues: There is periarticular soft tissue swelling most prominent laterally. There is a suspe cted tibiotalar joint effusion. Achilles tendon appears intact. IMPRESSION: 1. No definite acute fracture or dislocation. 2. 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 Reviewed by: Cam Dumont MD on 08/16/2022 9:01 PM [facility] Approved by: Cam Dumont MD on 08/16/2022 9:01 PM [facility] Station ID: [id number]
[2022-08-16 21:14] VITALS: BP 119/85
== END 2022-08-16 21:32 | disposition home or self-care (01) ==
LOC: ED 19:25
DX: S82.831K Other fracture of upper and lower end of right fibula, subsequent encounter for closed fracture with nonunion (principal); X50.1XXD Overexertion from prolonged static or awkward postures, subsequent encounter; F17.200 Nicotine dependence, unspecified, uncomplicated
CPT/HCPCS: 99283; 99284

== ENCOUNTER 2022-12-04 18:22 | Outpatient (CLI) | payer MEDICAID | END 2022-12-04 23:59 | disposition EMS.NT | LOC: EMS 18:22 | DX: R51.9 Headache, unspecified (principal); W01.0XXA Fall on same level from slipping, tripping and stumbling without subsequent striking against object, initial encounter; Y92.512 Supermarket, store or market as the place of occurrence of the external cause ==

== ENCOUNTER 2023-02-02 19:05 | Emergency (ER) | payer MEDICAID, OTHER ==
[2023-02-02 19:23] VITALS: BP 139/74; O2SAT 95
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
--- NOTE | 2023-02-02 20:50 | XRAY Report ---
PROCEDURE: Shoulder 3 View BILAT INDICATIONS: fall, bilateral shoulder pain/tenderness TECHNIQUE: 3 views of the bilateral shoulders were acquired. COMPARISON: None. FINDINGS: Bones: No fractures or dislocations. No suspicious bony lesions. Visualized ribs appear intact. Soft tissues: No suspicious soft tissue calcifications. IMPRESSION: No acute bony abnormality. If pain persists with conservative management, consider repeat radiographs in 10-14 days or cross-sectional imaging. Reviewed by: Zechariah Kemp MD on 02/02/2023 8:49 PM PDT Approved by: Zechariah Kemp MD on 02/02/2023 8:49 PM PDT Station ID: [id number]
== END 2023-02-02 22:20 | disposition home or self-care (01) ==
LOC: ED 19:05
DX: S43.409A Unspecified sprain of unspecified shoulder joint, initial encounter (principal); W03.XXXA Other fall on same level due to collision with another person, initial encounter; I10 Essential (primary) hypertension; Z87.891 Personal history of nicotine dependence
CPT/HCPCS: 99283

== ENCOUNTER 2023-04-20 19:24 | Outpatient (CLI) | payer MEDICAID, OTHER | END 2023-04-20 19:25 | disposition critical access hospital (66) | LOC: EMS 19:24 | DX: R30.9 Painful micturition, unspecified (principal); R11.2 Nausea with vomiting, unspecified; R19.7 Diarrhea, unspecified; R50.9 Fever, unspecified | CPT/HCPCS: A0425; A0429 ==

== ENCOUNTER 2023-04-20 19:32 | Emergency (ER) | payer MEDICAID, OTHER ==
[2023-04-20 19:52] VITALS: O2SAT 100
--- NOTE | 2023-04-20 20:26 | ED Physician Documentation ---
History of Present Illness - Stated complaint Stated Complaint: PAINFUL URINATION, ETOH - Chief complaint Chief Complaint: Abd Pain - History obtained from History obtained from: Patient, EMS - History of Present Illness Timing: How many days ago (5) Pain level max: 2 Pain level now: 1 - Additonal information Additional information: 62-year-old female presents to the emergency department stating that she has had dysuria and urinary frequency for the past 5 days. No fevers. No chills. Did have emesis x1. Not having any pain currently. Worse with urination, nothing makes it better. No vaginal bleeding or discharge. No STI exposure. No back pain. Feels similar to prior UTIs. 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 : None HEENT: None Psych: Depression Musculoskeletal: Chronic back pain Derm: None - Past Surgical History Past Surgical History: Yes Ortho: Spine surgery /BEE RAISER: section - Present Medications Home Medications: Ambulatory Orders Medication Instructions Recorded Confirmed DULoxetine [Cymbalta] 60 mg PO DAILY 10/11/18 11/04/21 busPIRone [Buspar] 15 mg PO BID 10/11/18 11/04/21 traZODone [Desyrel] 150 mg PO QPM 10/11/18 11/04/21 Meloxicam 15 mg PO DAILY 11/20/19 11/04/21 Alendronate [Fosamax] 70 mg PO FR 11/21/19 11/04/21 Furosemide 40 mg PO DAILY PRN 11/21/19 11/04/21 Metoprolol Succinate [Toprol Xl] 25 mg PO BID 11/21/19 11/04/21 SUMAtriptan succinate [Sumatriptan 6 mg SQ ONCE PRN 11/21/19 11/04/21 Succinate] Venlafaxine HCl 75 mg PO DAILY 11/21/19 11/04/21 Baclofen 10 mg PO TID 02/06/20 11/04/21 Estrogens, Conjugated Cream 1 applic VG DAILY 02/06/20 11/04/21 [Premarin Cream] Gabapentin [Neurontin] 800 mg PO TID 02/06/20 11/04/21 SUMAtriptan succinate [Sumatriptan 100 mg PO DAILY PRN 02/06/20 11/04/21 Succinate] Famotidine [Pepcid] 20 mg PO BID #60 tablet 09/10/21 11/04/21 Meloxicam [Mobic] 7.5 mg PO BID 15 Days #30 tablet 11/04/21 Metoprolol Succinate [Toprol Xl] 25 mg PO DAILY 30 Days #30 tablet 11/04/21 Venlafaxine HCl 75 mg PO DAILY 30 Days #30 tablet 11/04/21 tiZANidine [Zanaflex] 4 mg PO BID PRN #25 tablet 11/04/21 Nitrofurantoin [Macrobid] 100 mg PO BID #10 cap 04/20/23 Phenazopyridine HCl [Pyridium] 200 mg PO TID PRN #6 tablet 04/20/23 - Allergies Allergies/Adverse Reactions: Allergies Allergy/AdvReac Type Severity Reaction Status Date / Time pregabalin [From Lyrica] Allergy Hives Verified 04/20/23 19:41 adhesive tape AdvReac Rash Verified 04/20/23 19:41 Sulfa (Sulfonamide AdvReac Itching Verified 04/20/23 19:41 Antibiotics) - Social History Does the pt smoke?: No Smoking Status: Never smoker Does the pt drink ETOH?: Yes Does the pt have substance abuse?: No - Immunizations Immunizations are current?: Yes - POLST Patient has POLST: No POLST Status: Full Code PD ED PE NORMAL - Vitals Vital signs reviewed: Yes - General General: Alert and oriented X 3, No acute distress - HEENT HEENT: Moist mucous membranes - Neck Neck: Supple, no meningeal sign - Cardiac Cardiac: RRR, Strong equal pulses - Respiratory Respiratory: No respiratory distress, Clear bilaterally - Abdomen Abdomen: Soft, Non tender, Non distended - Back Back: No CVA TTP, No spinal TTP - Derm Derm: Warm and dry - Extremities Extremities: No edema, No calf tenderness / cord - Neuro Neuro: Alert and oriented X 3 - Psych Psych: Normal mood, Normal affect Results - Vitals Vitals: Vital Signs - 24 hr 04/20/23 04/20/23 19:41 21:44 Temperature 36.8 C 36.8 C Heart Rate 75 72 Respiratory 18 16 Rate Blood Pressure 134/94 H 130/88 H O2 Saturation 100 100 Oxygen O2 Source Room air - Labs Labs: Laboratory Tests 04/20/23 21:13 Urine Color YELLOW Urine Clarity SL. CLOUDY Urine pH 6.5 Ur Specific [place] <=1.005 Urine Protein 30 H Urine Glucose (UA) NEGATIVE Urine Ketones NEGATIVE Urine Occult Blood SMALL H Urine Nitrite NEGATIVE Urine Bilirubin NEGATIVE Urine Urobilinogen 1 (NORMAL) Ur Leukocyte Esterase LARGE H Urine RBC 0-5 Urine WBC >25 H Ur Squamous Epith Cells FEW Squamous Urine Bacteria Many H Ur Microscopic Review INDICATED Urine Culture Comments INDICATED PD Medical Decision Making - ED course Complexity details: reviewed results, re-evaluated patient, considered differential, d/w patient ED course: 62-year-old female with a UTI. Will place on Macrobid and Pyridium. No evidence of sepsis. Ambulating with a steady gait. Has been drinking today but has a history of alcoholism. No slurred speech. No indication for further work-up at this time. Patient counseled regarding signs and symptoms for which I believe and urgent re-evaluation would be necessary. Patient with good understanding of and agreement to plan and is comfortable going home at this time This document was made in part using voice recognition software. While efforts are made to proofread this document, sound alike and grammatical errors may occur. Departure - Departure Disposition: 01 Home, Self Care Clinical Impression: Alcoholism UTI (urinary tract infection) Qualifiers: Urinary tract infection type: acute cystitis Hematuria presence: without hematuria Qualified Code(s): N30.00 - Acute cystitis without hematuria Condition: Good Instructions: ED UTI Cystitis Female Follow-Up: your,doctor in 1 week [Other] Prescriptions: Nitrofurantoin [Macrobid] 100 mg PO BID #10 cap Phenazopyridine HCl [Pyridium] 200 mg PO TID PRN #6 tablet PRN Reason: dysuria Comments: [facility] [place]. Please take all antibiotics until gone. You have tested positive for a bladder infection today. Forms: PCP List Discharge Date/Time: 04/20/23 21:57
[2023-04-20 21:20] LABS: BILIRUBIN,URINE NEGATIVE (NEGATIVE); GLUCOSE, URINE (UA) NEGATIVE (NEGATIVE); KETONES,URINE (UA) NEGATIVE (NEGATIVE); LEUKOCYTE ESTERASE, URINE LARGE (NEGATIVE); NITRITE,URINE NEGATIVE (NEGATIVE); OCCULT BLOOD,URINE SMALL (NEGATIVE); PH,URINE 6.5 PH (5.0-7.5); PROTEIN,URINE 30 mg/dL (NEGATIVE); UROBILINOGEN,URINE 1 (NORMAL) E.U./dL (NORMAL)
[2023-04-20 21:22] LABS: CLARITY,URINE SL. CLOUDY (CLEAR)
[2023-04-20 21:27] LABS: BACTERIA,URINE Many /HPF (None Seen); RBC,URINE 0-5 /HPF (0-5); SQUAMOUS EPITHELIAL CELL,UR FEW Squamous (<= Few); WBC,URINE >25 /HPF (0-5)
[2023-04-20] MEDS ORDERED: NITROFURANTOIN MACRO 100 MG CAPSULE PO STA (21:28)
[2023-04-20] MEDS ORDERED: PHENAZOPYRIDINE 100 MG TABLET PO STA (21:28)
[2023-04-20 21:54] VITALS: BP 130/88
== END 2023-04-20 21:57 | disposition home or self-care (01) ==
LOC: EDUNIT# → ED 19:32
DX: N30.00 Acute cystitis without hematuria (principal); F10.20 Alcohol dependence, uncomplicated; Y90.9 Presence of alcohol in blood, level not specified
CPT/HCPCS: 81001; 87086; 87181; 99283; A9270; 81003

== ENCOUNTER 2023-06-13 14:15 | Emergency (ER) | payer MEDICAID ==
[2023-06-13 14:30] VITALS: BP 114/66; O2SAT 98
== END 2023-06-13 14:27 | disposition left against medical advice (07) ==
LOC: ED 14:15
DX: Z53.21 Procedure and treatment not carried out due to patient leaving prior to being seen by health care provider (principal)

== ENCOUNTER 2023-06-13 21:57 | Emergency (ER) | payer MEDICAID ==
[2023-06-13] MEDS ORDERED: IPRATROPIUM/ALBUTEROL 3 ML NEB INH STA (23:37)
[2023-06-13 23:40] LABS: VBG BASE EXCESS 4.7 mmol/L (-2 - +2); VBG HCO3 29.8 mmol/L (23-28); VBG PH 7.429 (7.31-7.41); VBG PO2 57.2 mmHg (25-47); VBG TOTAL CO2 31.2 mmol/L (24-29)
[2023-06-13 23:41] LABS: VBG OXYGEN SATURATION 88.3 % (60-80)
[2023-06-13 23:48] LABS: BASOPHILS % (AUTO) 0.4 %; HGB - HEMOGLOBIN 12.9 g/dL (12.0-16.0); LYMPHOCYTES % (AUTO) 73.9 %; MEAN CORPUSCULAR HGB CONC 33.1 g/dL (32.0-36.0); MEAN CORPUSCULAR VOLUME 105.7 fL (81.0-99.0); MEAN PLATELET VOLUME 10.1 fL (7.9-10.8); MONOCYTES % (AUTO) 3.2 %; NEUTROPHILS % (AUTO) 20.5 %; PLT - PLATELET COUNT 111 10^3/uL (130-450); RED BLOOD COUNT 3.69 10^6/uL (4.20-5.40); RED CELL DISTRIBUTION WIDTH 12.6 % (12.0-15.0); WHITE BLOOD COUNT 4.9 x10^3/uL (4.8-10.8)
[2023-06-13 23:53] LABS: ABNORMAL LYMPHS % (MANUAL) 0 %; BAND NEUTROPHILS % (MANUAL) 0 %
--- NOTE | 2023-06-13 23:53 | XRAY Report ---
PROCEDURE: Chest 2V INDICATIONS: cough, congestion X 1 week TECHNIQUE: 2 views of the chest were acquired. COMPARISON: Chest x-ray 10/27/2021. FINDINGS: Surgical changes and devices: None. Lungs and pleura: No pleural effusions or pneumothorax. Lungs are clear. Mediastinum: Mediastinal contours appear normal. Heart size is normal. Bones and chest wall: No suspicious bony lesions. Overlying soft tissues appear unremarkable. IMPRESSION: No acute cardiopulmonary process. Reviewed by: Butch Hernandez MD on 06/13/2023 11:52 PM PST Approved by: Butch Hernandez MD on 06/13/2023 11:52 PM PST Station ID: [id number]
[2023-06-14 00:03] LABS: ALBUMIN 4.3 g/dL (3.2-5.5)
[2023-06-14 00:04] LABS: ALBUMIN/GLOBULIN RATIO 1.5 (1.0-2.2); BILIRUBIN,TOTAL 0.5 mg/dL (0.2-1.0); CALCIUM 8.9 mg/dL (8.5-10.3); CREATININE 0.6 mg/dL (0.6-1.3); POTASSIUM 3.3 mmol/L (3.5-4.5); TOTAL PROTEIN 7.1 g/dL (6.4-8.9)
[2023-06-14 00:07] LABS: DIFFERENTIAL COMMENT MANUAL DIFFERENTIAL; EOSINOPHILS # (MANUAL) 0.2 10^3/uL (0-0.7); LYMPHOCYTES # (MANUAL) 3.2 10^3/uL (1.5-3.5); LYMPHOCYTES % (MANUAL) 55 %; MONOCYTES # (MANUAL) 0.3 10^3/uL (0.0-1.0); NEUTROPHILS # (MANUAL) 1.1 10^3/uL (1.5-6.6); PLATELET ESTIMATE, MANUAL DECREASED (<130,000) (NORMAL); RBC MORPHOLOGY (MULTIPLE) NORMAL APPEARANCE (NORMAL); REACTIVE LYMPHS % (MANUAL) 11 %
[2023-06-14 00:29] LABS: B. PARAPERTUSSIS- RESP PCR PAN NOT DETECTED; B. PERTUSSIS- RESP PCR PANEL NOT DETECTED; C. PNEUMONIAE- RESP PCR PANEL NOT DETECTED; CORONAVIRUS 229E-RESP PCR NOT DETECTED; CORONAVIRUS HKU1-RESP PCR NOT DETECTED; CORONAVIRUS NL63-RESP PCR NOT DETECTED; CORONAVIRUS OC43-RESP PCR NOT DETECTED; HUMAN METAPNEUMOVIRUS NOT DETECTED; INFLUENZA A- RESP PCR PANEL NOT DETECTED; INFLUENZA B - RESP PCR PANEL NOT DETECTED; M. PNEUMONIAE- RESP PCR PANEL NOT DETECTED; PARAINFLUENZA VIRUS 1 NOT DETECTED; PARAINFLUENZA VIRUS 2 NOT DETECTED; PARAINFLUENZA VIRUS 3 NOT DETECTED; PARAINFLUENZA VIRUS 4 NOT DETECTED; RHINOVIRUS/ENTEROVIRUS NOT DETECTED; RSV- RESP PCR PANEL DETECTED; SARS-CoV-2 -RESP PCR PANEL NOT DETECTED
--- NOTE | 2023-06-14 00:29 | ED Physician Documentation ---
History of Present Illness - Stated complaint Stated Complaint: COUGH/SOA - Chief complaint Chief Complaint: Resp - History obtained from History obtained from: Patient - Additonal information Additional information: 63yF presents with cough, soa and uri symptoms including congestion X 1 week, progressively worsening. endorses subjective wheezing and chills. denies hemoptysis leg swelling n/v/d urinary sx. 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: section - Present Medications Home Medications: Ambulatory Orders Medication Instructions Recorded Confirmed DULoxetine [Cymbalta] 60 mg PO DAILY 10/11/18 06/13/23 busPIRone [Buspar] 15 mg PO BID 10/11/18 06/13/23 traZODone [Desyrel] 150 mg PO QPM 10/11/18 06/13/23 Meloxicam 15 mg PO DAILY 11/20/19 06/13/23 Alendronate [Fosamax] 70 mg PO FR 11/21/19 06/13/23 Furosemide 40 mg PO DAILY PRN 11/21/19 06/13/23 Metoprolol Succinate [Toprol Xl] 25 mg PO BID 11/21/19 06/13/23 SUMAtriptan succinate [Sumatriptan 6 mg SQ ONCE PRN 11/21/19 06/13/23 Succinate] Venlafaxine HCl 75 mg PO DAILY 11/21/19 06/13/23 Baclofen 10 mg PO TID 02/06/20 06/13/23 Estrogens, Conjugated Cream 1 applic VG DAILY 02/06/20 06/13/23 [Premarin Cream] Gabapentin [Neurontin] 800 mg PO TID 02/06/20 06/13/23 SUMAtriptan succinate [Sumatriptan 100 mg PO DAILY PRN 02/06/20 06/13/23 Succinate] Famotidine [Pepcid] 20 mg PO BID #60 tablet 09/10/21 06/13/23 Meloxicam [Mobic] 7.5 mg PO BID 15 Days #30 tablet 11/04/21 06/13/23 Metoprolol Succinate [Toprol Xl] 25 mg PO DAILY 30 Days #30 tablet 11/04/21 06/13/23 Venlafaxine HCl 75 mg PO DAILY 30 Days #30 tablet 11/04/21 06/13/23 tiZANidine [Zanaflex] 4 mg PO BID PRN #25 tablet 11/04/21 06/13/23 Nitrofurantoin [Macrobid] 100 mg PO BID #10 cap 04/20/23 06/13/23 Phenazopyridine HCl [Pyridium] 200 mg PO TID PRN #6 tablet 04/20/23 06/13/23 Albuterol Sulf [Ventolin Hfa 1 - 2 puffs INH Q4HR PRN #18 gm 06/14/23 Inhaler] - Allergies Allergies/Adverse Reactions: Allergies Allergy/AdvReac Type Severity Reaction Status Date / Time pregabalin [From Lyrica] Allergy Hives Verified 06/13/23 22:04 adhesive tape AdvReac Rash Verified 06/13/23 22:04 Sulfa (Sulfonamide AdvReac Itching Verified 06/13/23 22:04 Antibiotics) - Social History Does the pt smoke?: No Smoking Status: Never smoker Does the pt drink ETOH?: Yes Does the pt have substance abuse?: No - Immunizations Immunizations are current?: Yes - POLST Patient has POLST: No POLST Status: Full Code PD ED PE NORMAL - Vitals Vital signs reviewed: Yes - General General: Alert and oriented X 3, No acute distress, Well developed/nourished - HEENT HEENT: Atraumatic, PERRL, EOMI - Neck Neck: Supple, no meningeal sign - Cardiac Cardiac: RRR - Respiratory Respiratory: Other (BL scant wheezing, improving s/p duoneb) - Abdomen Abdomen: Non tender, Non distended Results - Vitals Vitals: Vital Signs - 24 hr 06/13/23 06/13/23 06/13/23 22:05 23:15 23:52 Temperature 36.8 C 36.6 C Heart Rate 100 88 82 Respiratory 20 22 20 Rate Blood Pressure 140/60 H 144/91 H O2 Saturation 94 99 06/13/23 06/14/23 23:53 00:04 Temperature 36.2 C L Heart Rate 81 92 Respiratory 14 20 Rate Blood Pressure 136/85 H 121/75 O2 Saturation 100 99 Oxygen O2 Source Room air - Labs Labs: Laboratory Tests 06/13/23 06/13/23 06/13/23 23:35 23:35 23:35 WBC 4.9 RBC 3.69 L Hgb 12.9 Hct 39.0 MCV 105.7 H MCH 35.0 H MCHC 33.1 RDW 12.6 Plt Count 111 L MPV 10.1 Neut # (Auto) Not Reportable Lymph # (Auto) Not Reportable [place] # (Auto) Not Reportable Eos # (Auto) Not Reportable Baso # (Auto) Not Reportable Absolute Nucleated RBC Not Reportable Total Counted 100 Band Neuts % (Manual) 0 Reactive Lymphs % (Man) 11 Abnorm Lymph % (Manual) 0 Nucleated RBC % Not Reportable Neutrophils # (Manual) 1.1 L Lymphocytes # (Manual) 3.2 Monocytes # (Manual) 0.3 Eosinophils # (Manual) 0.2 Basophils # (Manual) 0.0 Differential Comment MANUAL DIFFERENTIAL Platelet Estimate DECREASED (<130,000) RBC Morph Micro Appear NORMAL APPEARANCE VBG pH 7.429 H VBG pCO2 46.0 VBG pO2 57.2 H VBG HCO3 29.8 H VBG Total CO2 31.2 H VBG O2 Saturation 88.3 H VBG Base Excess 4.7 H Sodium 139 Potassium 3.3 L Chloride 99 L Carbon Dioxide 33 H Anion Gap 7.0 BUN 4 L Creatinine 0.6 Estimated GFR (MDRD) 102 Glucose 102 Calcium 8.9 Total Bilirubin 0.5 AST 113 H ALT 100 H Alkaline Phosphatase 112 Total Protein 7.1 Albumin 4.3 Globulin 2.8 Albumin/Globulin Ratio 1.5 Lipase 121 H PD Medical Decision Making - ED course ED course: 63-year-old woman presents with uri symptoms X 1 week with worsening soa today, found to have BL wheezing on lung exam, improving s/p duoneb. cxr clear by my wet read and independent interpretation of outside radiologist. cbc, abdominal panel ordered - she does have mildly elevated LFTs with ast 113, alt 100 and lipase 121 c/w viral syndrome. symptomatic care discussed. plan to f/u outpatient with pcp. strict return precautions given. rx for inhaler sent to pharmacy. Departure - Departure Disposition: Home, Self Care Clinical Impression: Viral upper respiratory illness Condition: Stable Instructions: ED Viral Syndrome Prescriptions: Albuterol Sulf [Ventolin Hfa Inhaler] 1 - 2 puffs INH Q4HR PRN #18 gm PRN Reason: Shortness Of Air/Wheezing Comments: You were seen in the emergency department for a viral upper respiratory infection. A prescription for inhaler was sent electronically to [facility] pharmacy. Please follow-up with your primary care provider and return to the emergency department if you have any new or worsening symptoms or other concerns.
[2023-06-14 01:32] VITALS: BP 127/101; O2SAT 96
== END 2023-06-14 01:00 | disposition home or self-care (01) ==
LOC: ED 21:57
DX: J06.9 Acute upper respiratory infection, unspecified (principal)
CPT/HCPCS: 36415; 80053; 82803; 83690; 85025; 87633; 94640; 99284

== ENCOUNTER 2023-07-19 23:16 | Outpatient (CLI) | payer MEDICAID | END 2023-07-19 23:17 | disposition critical access hospital (66) | LOC: EMS 23:16 | DX: R07.81 Pleurodynia (principal); R29.6 Repeated falls; F10.90 Alcohol use, unspecified, uncomplicated | CPT/HCPCS: A0425; A0429; A0999 ==

== ENCOUNTER 2023-07-19 23:23 | Inpatient (IN) | payer MEDICAID ==
[2023-07-20] MEDS: ONDANSETRON ODT 4 MG TABLET TL STA (00:16)
--- NOTE | 2023-07-20 01:27 | XRAY Report ---
PROCEDURE: Ribs 2V RT INDICATIONS: INJURY FROM FALL WKS AGO, C/O PAIN TECHNIQUE: 3 views of the right ribs were acquired. COMPARISON: None. FINDINGS: Surgical changes and devices: None. Bones and chest wall: Mildly displaced acute fractures of right lateral ribs 8 through 10. There are healed deformities of remote right lateral rib fractures 3 through 7. There is no subcutaneous emphy sema or foreign bodies in the soft tissue. Lungs and pleura: The visualized lung appears clear. No pneumothorax. Probable trace right pleural effusion.. IMPRESSION: Acute right rib fractures 8 through 10. Probable trace right effusion. Healed right rib fractures 3 through 7. Reviewed by: Germaine Maya MD on 07/20/2023 1:26 AM PST Approved by: Germaien Maya MD on 07/20/2023 1:26 AM PST Station ID: [id number]
--- NOTE | 2023-07-20 01:29 | ED Physician Documentation ---
History of Present Illness - Stated complaint Stated Complaint: R RIB PX/FALL - Chief complaint Chief Complaint: Trauma Ch/Bk - History obtained from History obtained from: Patient, EMS - Additonal information Additional information: HPI from patient as well as EMS. MENDEZ. Patient complains of right-sided chest wall pain x 2 days. Pain was of sudden onset when she tripped and fell at home. Pain is constant, exacerbated with palpation and movement as well as a deep breath in. She denies shortness of breath, cough. A friend called 911 tonight when they found the patient on the floor unable to get up due to the pain associated with movement of the right chest wall. Patient denies any other injury. She denies LOC, headache, neck pain. Review of Systems Constitutional: denies: Fever, Chills, Sweats Cardiac: reports: Chest pain / pressure. 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 - Present Medications Home Medications: Ambulatory Orders Medication Instructions Recorded Confirmed DULoxetine [Cymbalta] 60 mg PO DAILY 10/11/18 06/13/23 busPIRone [Buspar] 15 mg PO BID 10/11/18 06/13/23 traZODone [Desyrel] 150 mg PO QPM 10/11/18 06/13/23 Meloxicam 15 mg PO DAILY 11/20/19 06/13/23 Alendronate [Fosamax] 70 mg PO FR 11/21/19 06/13/23 Furosemide 40 mg PO DAILY PRN 11/21/19 06/13/23 Metoprolol Succinate [Toprol Xl] 25 mg PO BID 11/21/19 06/13/23 SUMAtriptan succinate [Sumatriptan 6 mg SQ ONCE PRN 11/21/19 06/13/23 Succinate] Venlafaxine HCl 75 mg PO DAILY 11/21/19 06/13/23 Baclofen 10 mg PO TID 02/06/20 06/13/23 Estrogens, Conjugated Cream 1 applic VG DAILY 02/06/20 06/13/23 [Premarin Cream] Gabapentin [Neurontin] 800 mg PO TID 02/06/20 06/13/23 SUMAtriptan succinate [Sumatriptan 100 mg PO DAILY PRN 02/06/20 06/13/23 Succinate] Famotidine [Pepcid] 20 mg PO BID #60 tablet 09/10/21 06/13/23 Meloxicam [Mobic] 7.5 mg PO BID 15 Days #30 tablet 11/04/21 06/13/23 Metoprolol Succinate [Toprol Xl] 25 mg PO DAILY 30 Days #30 tablet 11/04/21 06/13/23 Venlafaxine HCl 75 mg PO DAILY 30 Days #30 tablet 11/04/21 06/13/23 tiZANidine [Zanaflex] 4 mg PO BID PRN #25 tablet 11/04/21 06/13/23 Nitrofurantoin [Macrobid] 100 mg PO BID #10 cap 04/20/23 06/13/23 Phenazopyridine HCl [Pyridium] 200 mg PO TID PRN #6 tablet 04/20/23 06/13/23 Albuterol Sulf [Ventolin Hfa 1 - 2 puffs INH Q4HR PRN #18 gm 06/14/23 Inhaler] - Allergies Allergies/Adverse Reactions: Allergies Allergy/AdvReac Type Severity Reaction Status Date / Time pregabalin [From Lyrica] Allergy Hives Verified 07/19/23 23:28 adhesive tape AdvReac Rash Verified 07/19/23 23:28 Sulfa (Sulfonamide AdvReac Itching Verified 07/19/23 23:28 Antibiotics) - Social History Does the pt smoke?: No Smoking Status: Former smoker Does the pt drink ETOH?: Yes Does the pt have substance abuse?: No - Immunizations Immunizations are current?: Yes - POLST Patient has POLST: No POLST Status: Full Code PD ED PE NORMAL - Vitals Vital signs reviewed: Yes - General General: Alert and oriented X 3, No acute distress (NAD at rest, obvious painful discomfort with movement involving trunk/torso as well as with palpation of right anterolateral chest wall), Well developed/nourished, Other (slurred speech. NAD at rest but obvious painful distress with movement, deep inspir ation, palpation of right chest wall) - HEENT HEENT: Atraumatic, PERRL, EOMI - Neck Neck: No bony TTP - Cardiac Cardiac: RRR, No murmur - Respiratory Respiratory: No respiratory distress, Clear bilaterally - Abdomen Abdomen: Soft, Non tender - Back Back: No spinal TTP - Neuro Neuro: Alert and oriented X 3 PD ED PE EXPANDED - Cardiac Cardiac: Chest wall TTP (right anterolateral chest wall echymosis, TTP) Results - Vitals Vitals: Vital Signs - 24 hr 07/19/23 07/20/23 07/20/23 23:29 00:00 01:00 Temperature 36.6 C Heart Rate 59 L 65 58 L Respiratory 16 16 16 Rate Blood Pressure 156/96 H 125/72 112/80 O2 Saturation 99 100 92 07/20/23 07/20/23 03:00 04:00 Temperature Heart Rate 73 72 Respiratory 16 16 Rate Blood Pressure 132/85 H 113/74 O2 Saturation 98 97 Oxygen O2 Source Room air - Labs Labs: Laboratory Tests 07/20/23 07/20/23 02:57 02:57 WBC 3.5 L RBC 3.63 L Hgb 12.8 Hct 38.6 MCV 106.3 H MCH 35.3 H MCHC 33.2 RDW 13.9 Plt Count 92 L MPV 10.8 Neut # (Auto) 1.2 L Lymph # (Auto) 2.1 [place] # (Auto) 0.2 Eos # (Auto) 0.0 Baso # (Auto) 0.0 Absolute Nucleated RBC 0.00 Nucleated RBC % 0.0 Sodium 143 Potassium 4.0 Chloride 102 Carbon Dioxide 27 Anion Gap 14.0 H BUN 7 Creatinine 0.5 L Estimated GFR (MDRD) 125 Glucose 82 Calcium 9.4 Total Bilirubin 0.9 AST 82 H ALT 37 Alkaline Phosphatase 92 Total Protein 6.9 Albumin 4.3 Globulin 2.6 Albumin/Globulin Ratio 1.7 Lipase 21 Ethyl Alcohol 398.3 - Rads (name of study) right ribs w/ PA chest Relevant Findings:: Prelim report reviewed, See rad report PD Medical Decision Making - ED course Complexity details: reviewed results, re-evaluated patient, considered differential, d/w patient ED course: Plan-film x-rays demonstrate right lateral rib fractures 8, 9, 10. Probable trace right effusion. Old/healed fractures of right ribs 3 through 7 also noted. No evidence of pneumothorax. Considering patient's age and the number of rib fractures, inpatient treatment is indicated per rib fracture protocol. Outpatient management would also be complicated by her ongoing alcoholism. Patient is calm, polite and pleasant in the ED. She is given 4 mg TL Zofran prior to the results of the chest x-ray. After the images show the rib fractures as noted, above, IV is established, basic blood work is drawn, and 4 mg of morphine IV is given. I discussed this case with on-call surgery for [facility] (Dr. Ochao). He agrees with admission to the ICU and will put in admission orders. Departure - Departure Disposition: [facility] DC/Xfer Clinical Impression: Ribs, multiple fractures Qualifiers: Encounter type: initial encounter Fracture type: closed Laterality: right Qualified Code(s): S22.41XA - Multiple fractures of ribs, right side, initial encounter for closed fracture Condition: Stable Discharge Date/Time: 07/20/23 05:20
[2023-07-20] MEDS ORDERED: HYDROcod/ACETAM 5/325 MG TABLET PO PRN (02:47)
[2023-07-20] MEDS ORDERED: oxyCODONE 5 MG TABLET PO PRN (02:50)
[2023-07-20 03:02] LABS: BASOPHILS % (AUTO) 0.6 %; EOSINOPHILS % (AUTO) 0.8 %; HCT - HEMATOCRIT 38.6 % (37.0-47.0); HGB - HEMOGLOBIN 12.8 g/dL (12.0-16.0); LYMPHOCYTES # (AUTO) 2.1 10^3/uL (1.5-3.5); MEAN CORPUSCULAR HEMOGLOBIN 35.3 pg (27.0-31.0); MEAN CORPUSCULAR HGB CONC 33.2 g/dL (32.0-36.0); MEAN CORPUSCULAR VOLUME 106.3 fL (81.0-99.0); MEAN PLATELET VOLUME 10.8 fL (7.9-10.8); MONOCYTES # (AUTO) 0.2 10^3/uL (0.0-1.0); MONOCYTES % (AUTO) 6.8 %; NEUTROPHILS # (AUTO) 1.2 10^3/uL (1.5-6.6); NEUTROPHILS % (AUTO) 32.5 %; PLT - PLATELET COUNT 92 10^3/uL (130-450); RED BLOOD COUNT 3.63 10^6/uL (4.20-5.40); RED CELL DISTRIBUTION WIDTH 13.9 % (12.0-15.0); WHITE BLOOD COUNT 3.5 x10^3/uL (4.8-10.8)
[2023-07-20] MEDS: SODIUM CHLORIDE 0.9% 1,000 ML IV STA (03:04)
[2023-07-20] MEDS: MORPHINE 2 MG/ML CARPUJECT IVP STA (03:04)
[2023-07-20 03:15] LABS: ALBUMIN 4.3 g/dL (3.2-5.5); ALBUMIN/GLOBULIN RATIO 1.7 (1.0-2.2); BILIRUBIN,TOTAL 0.9 mg/dL (0.2-1.0); CALCIUM 9.4 mg/dL (8.5-10.3); CREATININE 0.5 mg/dL (0.6-1.3); ETOH - ETHANOL 398.3 mg/dL; TOTAL PROTEIN 6.9 g/dL (6.4-8.9)
[2023-07-20] MEDS: LACTATED RINGERS 1,000 ML IV SCH (04:07)
[2023-07-20] MEDS ORDERED: ONDANSETRON 4 MG/2 ML VIAL IVP PRN (04:50)
[2023-07-20] MEDS ORDERED: IBUPROFEN 600 MG TABLET PO ONE (06:31)
[2023-07-20] MEDS: IBUPROFEN 800 MG TABLET PO SCH (06:33)
[2023-07-20] MEDS: MORPHINE 2 MG/ML CARPUJECT IVP PRN (06:36)
[2023-07-20] MEDS: ACETAMINOPHEN 500 MG TABLET PO SCH (10:14)
[2023-07-20] MEDS: IBUPROFEN 600 MG TABLET PO SCH (13:50)
[2023-07-20] MEDS: LORazepam 1 MG TABLET PO SCH (13:51)
[2023-07-20] MEDS: oxyCODONE 5 MG TABLET PO PRN (13:51)
--- NOTE | 2023-07-20 14:52 | HISTORY & PHYSICAL EXAMINATION ---
Chief Complaint - Chief Complaint Chief Complaint: admitted with chest pain and not doing well at home following fall History of Present Illness - History Obtained From Records Reviewed: yes History obtained from: pt Exam Limitations: none - History of Present Illness HPI Comment/Other: fall 2 days prior to admit. not doing well at home due to pain. lives alone. admitted with rib fractures for observation and pain control. feeling better now. History - Past Medical History Cardiovascular: reports: Hypertension, High cholesterol Respiratory: reports: None Neuro: reports: None Endocrine/Autoimmune: reports: None GI: reports: None MANAGER CASINO: reports: None : reports: None HEENT: reports: None Psych: reports: Depression Musculoskeletal: reports: Chronic back pain Derm: reports: None MRSA Hx?: No - Past Surgical History Ortho: reports: Spine surgery /MANAGER CASINO: reports: section - Family & Social History Family History Comment/Other: Cannot obtain family history at the moment because of patient's altered mental status. Living Situation: Alone Social History Notes: According to records patient 1 pack of cigarettes weekly. She also drinks heavily. She denies any recreational drug use - POLST Patient has POLST: No POLST Status: Full Code Meds/Allgy - Home Medications Home Medications: Ambulatory Orders Medication Instructions Recorded Confirmed DULoxetine [Cymbalta] 60 mg PO DAILY 10/11/18 06/13/23 busPIRone [Buspar] 15 mg PO BID 10/11/18 06/13/23 traZODone [Desyrel] 150 mg PO QPM 10/11/18 06/13/23 Meloxicam 15 mg PO DAILY 11/20/19 06/13/23 Alendronate [Fosamax] 70 mg PO FR 11/21/19 06/13/23 Furosemide 40 mg PO DAILY PRN 11/21/19 06/13/23 Metoprolol Succinate [Toprol Xl] 25 mg PO BID 11/21/19 06/13/23 SUMAtriptan succinate [Sumatriptan 6 mg SQ ONCE PRN 11/21/19 06/13/23 Succinate] Venlafaxine HCl 75 mg PO DAILY 11/21/19 06/13/23 Baclofen 10 mg PO TID 02/06/20 06/13/23 Estrogens, Conjugated Cream 1 applic VG DAILY 02/06/20 06/13/23 [Premarin Cream] Gabapentin [Neurontin] 800 mg PO TID 02/06/20 06/13/23 SUMAtriptan succinate [Sumatriptan 100 mg PO DAILY PRN 02/06/20 06/13/23 Succinate] Famotidine [Pepcid] 20 mg PO BID #60 tablet 09/10/21 06/13/23 Meloxicam [Mobic] 7.5 mg PO BID 15 Days #30 tablet 11/04/21 06/13/23 Metoprolol Succinate [Toprol Xl] 25 mg PO DAILY 30 Days #30 tablet 11/04/21 06/13/23 Venlafaxine HCl 75 mg PO DAILY 30 Days #30 tablet 11/04/21 06/13/23 tiZANidine [Zanaflex] 4 mg PO BID PRN #25 tablet 11/04/21 06/13/23 Nitrofurantoin [Macrobid] 100 mg PO BID #10 cap 04/20/23 06/13/23 Phenazopyridine HCl [Pyridium] 200 mg PO TID PRN #6 tablet 04/20/23 06/13/23 Albuterol Sulf [Ventolin Hfa 1 - 2 puffs INH Q4HR PRN #18 gm 06/14/23 Inhaler] - Allergies Allergies/Adverse Reactions: Allergies Allergy/AdvReac Type Severity Reaction Status Date / Time pregabalin [From Lyrica] Allergy Hives Verified 07/19/23 23:28 adhesive tape AdvReac Rash Verified 07/19/23 23:28 Sulfa (Sulfonamide AdvReac Itching Verified 07/19/23 23:28 Antibiotics) Review of Systems - Other Findings Other Findings: mild asthma and rare inhaler use. she does not feel she needs an inhaler at this time. gets shaky without etoh. 10 pt ros as above otherwise unremarkable. Exam - Vital Signs Vital Signs: Vital Signs x48h Temp Pulse Resp BP Pulse Ox O2 Flow Rate 07/20/23 12:19 36.8 C 95 18 133/87 H 96 2 07/20/23 07:58 37 C 83 11 L 123/77 92 07/20/23 07:07 83 13 124/84 H 94 07/20/23 06:54 98 13 135/73 H 94 - Physical Exam General Appearance: positive: No acute distress, Alert, Other (appears comfortable at this time) Eyes Bilateral: positive: PERRL, EOMI Neck: positive: No JVD, Trachea midline Respiratory: positive: No respiratory distress, Other (taking normal deep breaths) Cardiovascular: positive: Regular rate & rhythm Abdomen: positive: No distention Neurologic/Psychiatric: positive: Oriented x3 Conclusion/Plan - Problem List (1) Ribs, multiple fractures Conclusion/Plan: improved. feeling better. admitted for pain control and observation, pulmonary toilet ativan for etoh withdrawal concern lives alone. possibly home tomorrow. Qualifiers: Encounter type: initial encounter Fracture type: closed Laterality: right Qualified Code(s): S22.41XA - Multiple fractures of ribs, right side, initial encounter for closed fracture - Lab Results Fish Bones: 07/20/23 02:57 07/20/23 02:57
--- NOTE | 2023-07-20 14:55 | PHARMACY PROGRESS NOTE ---
- Best Possible Medication History Admit Date and Time: 07/20/23 0451 Processed by: Pharmacy Medication History completed: Yes Patient Interview: Completed Secondary Source(s): Pharmacy records, Insurance records (PER [employer] [place] PHARMACY/ PHARMACIST) As the person ultimately responsible for medication therapy, providers are able to order a medication from an existing home medication list in [facility] via the "Reconcile Routine" prior to Confirmation of that medication by academic support director. Such practice is discouraged except when the physician, in their clinical judgment, deems that a medical need exists for a medication without regard to previous use.
--- NOTE | 2023-07-20 20:32 | PROVIDER PROGRESS NOTE ---
Subjective - Subjective Subjective: sleeping comfortably and taking deep breaths. Objective - Vital Signs/Intake & Output Vital Signs: Vital Signs x48h Pulse Resp BP Pulse Ox O2 Flow Rate 07/20/23 20:00 83 12 132/83 H 98 2 07/20/23 18:00 94 20 101/76 97 2 07/20/23 17:00 90 11 L 125/74 99 2 07/20/23 16:00 89 19 137/76 H 100 2 07/20/23 15:00 79 17 133/89 H 100 2 07/20/23 14:00 92 17 149/74 H 98 2 07/20/23 13:00 83 11 L 136/78 H 90 L Intake & Output: Intake & Output 07/17/23 07/18/23 07/19/23 07/20/23 23:59 23:59 23:59 23:59 Intake Total 4970.000 Output Total 400 Balance 4570.000 - Objective General Appearance: positive: Other (sleeping comfortably. I did no awaken her) Respiratory: positive: No respiratory distress - Lab Results Fish Bones: 07/20/23 02:57 07/20/23 02:57 Other Labs: Lab Results x24hrs 07/20/23 07/20/23 07/20/23 Range/Units 05:30 02:57 02:57 WBC 3.5 L (4.8-10.8) x10^3/uL RBC 3.63 L (4.20-5.40) 10^6/uL Hgb 12.8 (12.0-16.0) g/dL Hct 38.6 (37.0-47.0) % MCV 106.3 H (81.0-99.0) fL MCH 35.3 H (27.0-31.0) pg MCHC 33.2 (32.0-36.0) g/dL RDW 13.9 (12.0-15.0) % Plt Count 92 L (130-450) 10^3/uL MPV 10.8 (7.9-10.8) fL Neut # (Auto) 1.2 L (1.5-6.6) 10^3/uL Lymph # (Auto) 2.1 (1.5-3.5) 10^3/uL Taylor # (Auto) 0.2 (0.0-1.0) 10^3/uL Eos # (Auto) 0.0 (0.0-0.7) 10^3/uL Baso # (Auto) 0.0 (0.0-0.1) 10^3/uL Absolute Nucleated RBC 0.00 x10^3/uL Nucleated RBC % 0.0 /100WBC Sodium 143 (135-145) mmol/L Potassium 4.0 (3.5-4.5) mmol/L Chloride 102 (101-111) mmol/L Carbon Dioxide 27 (21-32) mmol/L Anion Gap 14.0 H (6-13) BUN 7 (6-20) mg/dL Creatinine 0.5 L (0.6-1.3) mg/dL Estimated GFR (MDRD) 125 (>89) Glucose 82 (74-104) mg/dL Calcium 9.4 (8.5-10.3) mg/dL Total Bilirubin 0.9 (0.2-1.0) mg/dL AST 82 H (10-42) IU/L ALT 37 (10-60) IU/L Alkaline Phosphatase 92 (42-121) IU/L Total Protein 6.9 (6.4-8.9) g/dL Albumin 4.3 (3.2-5.5) g/dL Globulin 2.6 (2.1-4.2) g/dL Albumin/Globulin Ratio 1.7 (1.0-2.2) Lipase 21 (11-82) U/L Nasal Screen MRSA (PCR) NEGATIVE (NEGATIVE) Ethyl Alcohol 398.3 mg/dL Assessment/Plan - Problem List (1) Ribs, multiple fractures Impression: currently sleeping comfortably and breathing comfortably. certainly no apparent etoh withdrawal Qualifiers: Encounter type: initial encounter Fracture type: closed Laterality: right Qualified Code(s): S22.41XA - Multiple fractures of ribs, right side, initial encounter for closed fracture
[2023-07-20] MEDS: busPIRone 5 MG TABLET PO SCH (21:50)
[2023-07-20] MEDS: traZODone 50 MG TABLET PO SCH (21:50)
[2023-07-20] MEDS: HEPARIN 5,000 UNIT/ML VIAL SUBQ SCH (21:50)
[2023-07-20] MEDS: METOPROLOL TARTRATE 25 MG TABLET PO SCH (21:50)
[2023-07-20] MEDS: FAMOTIDINE 20 MG TABLET PO SCH (21:51)
[2023-07-21] MEDS: polyethylene glycoL 3350 17 GM PACKET PO SCH (08:26)
--- NOTE | 2023-07-21 16:35 | PROVIDER PROGRESS NOTE ---
Subjective - Subjective Pt reports feeling: Improved (resting comfortably) Objective - Vital Signs/Intake & Output Vital Signs: Vital Signs x48h Pulse Resp BP Pulse Ox O2 Flow Rate 07/21/23 10:00 68 12 117/71 100 1 07/21/23 09:00 104/66 Intake & Output: Intake & Output 07/18/23 07/19/23 07/20/23 07/21/23 23:59 23:59 23:59 23:59 Intake Total 5170.000 1080 Output Total 400 600 Balance 4770.000 480 - Objective General Appearance: positive: No acute distress, Other (resting comfortably. up earlier) Respiratory: positive: No respiratory distress - Lab Results Fish Bones: 07/20/23 02:57 07/20/23 02:57 Assessment/Plan - Problem List (1) Ribs, multiple fractures Impression: doing well with rib fxs. very unsteady gate still. plan pt consult and social work consult lives alone and frequent falls Qualifiers: Encounter type: initial encounter Fracture type: closed Laterality: right Qualified Code(s): S22.41XA - Multiple fractures of ribs, right side, initial encounter for closed fracture
[2023-07-21 23:01] LABS: BILIRUBIN,URINE NEGATIVE (NEGATIVE); GLUCOSE, URINE (UA) NEGATIVE (NEGATIVE); KETONES,URINE (UA) NEGATIVE (NEGATIVE); LEUKOCYTE ESTERASE, URINE LARGE (NEGATIVE); NITRITE,URINE POSITIVE (NEGATIVE); OCCULT BLOOD,URINE NEGATIVE (NEGATIVE); PH,URINE 6.5 PH (5.0-7.5); PROTEIN,URINE NEGATIVE (NEGATIVE); UROBILINOGEN,URINE 1 (NORMAL) E.U./dL (NORMAL)
[2023-07-21 23:03] LABS: CLARITY,URINE CLOUDY (CLEAR)
[2023-07-21 23:39] LABS: WBC,URINE >25 /HPF (0-5)
[2023-07-21 23:40] LABS: BACTERIA,URINE Many /HPF (None Seen); RBC,URINE 0-5 /HPF (0-5); SQUAMOUS EPITHELIAL CELL,UR NONE SEEN (<= Few)
[2023-07-22] MEDS: CIPROFLOXACIN 250 MG TABLET PO SCH (09:23)
[2023-07-22] MEDS: MULTIVITAMIN TABLET PO SCH (12:25)
[2023-07-22] MEDS: THIAMINE 100 MG TABLET PO SCH (12:25)
--- NOTE | 2023-07-22 14:37 | PROVIDER PROGRESS NOTE ---
Subjective - Subjective Subjective: agitated and confused this am per nursing. resting comfortably currently Objective - Vital Signs/Intake & Output Vital Signs: Vital Signs x48h Temp Pulse Pulse Pulse Resp BP BP 07/22/23 13:00 36.9 C 91 22 143/92 H 07/22/23 12:37 94 117 H 07/22/23 09:28 89 131/82 H 07/22/23 09:27 131/82 H 07/22/23 09:00 37.8 C 100 19 152/82 H BP BP Pulse Ox 07/22/23 13:00 95 07/22/23 12:37 143/101 H 134/95 H 07/22/23 09:28 07/22/23 09:27 07/22/23 09:00 97 Intake & Output: Intake & Output 07/19/23 07/20/23 07/21/23 07/22/23 23:59 23:59 23:59 23:59 Intake Total 5170.000 1580 1357 Output Total 400 1425 990 Balance 4770.000 155 367 - Objective General Appearance: positive: No acute distress, Other (resting comfortably) Respiratory: positive: No respiratory distress Neurologic/Psychiatric: positive: Oriented x3 - Lab Results Fish Bones: 07/20/23 02:57 07/20/23 02:57 Other Labs: Lab Results x24hrs 07/21/23 Range/Units 22:48 Urine Color YELLOW Urine Clarity CLOUDY (CLEAR) Urine pH 6.5 (5.0-7.5) PH Ur Specific [place] <=1.005 (1.002-1.030) Urine Protein NEGATIVE (NEGATIVE) mg/dL Urine Glucose (UA) NEGATIVE (NEGATIVE) mg/dL Urine Ketones NEGATIVE (NEGATIVE) mg/dL Urine Occult Blood NEGATIVE (NEGATIVE) Urine Nitrite POSITIVE H (NEGATIVE) Urine Bilirubin NEGATIVE (NEGATIVE) Urine Urobilinogen 1 (NORMAL) (NORMAL) E.U./dL Ur Leukocyte Esterase LARGE H (NEGATIVE) Urine RBC 0-5 (0-5) /HPF Urine WBC >25 H (0-5) /HPF Ur Squamous Epith Cells NONE SEEN (<= Few) Urine Bacteria Many H (None Seen) /HPF Ur Microscopic Review INDICATED Urine Culture Comments INDICATED Assessment/Plan - Problem List (1) Ribs, multiple fractures Impression: resting comfortably and breathing comfortably add prn ativan for agitation and further concern for etoh withdrawal uti on admit. plan cipro x 3 days very unsteady gait and history falls and ribs fractures. lives alone. social work consult. Qualifiers: Encounter type: initial encounter Fracture type: closed Laterality: right Qualified Code(s): S22.41XA - Multiple fractures of ribs, right side, initial encounter for closed fracture
[2023-07-22] MEDS: LORazepam 1 MG TABLET PO PRN (14:47)
--- NOTE | 2023-07-22 20:00 | PROVIDER PROGRESS NOTE ---
Subjective - Subjective Pt reports feeling: Improved (resting comfortably. easily awakens to voice) Objective - Vital Signs/Intake & Output Vital Signs: Vital Signs x48h Temp Pulse Pulse Pulse Resp BP BP 07/22/23 15:24 37 C 73 14 135/74 H 07/22/23 13:00 36.9 C 91 22 143/92 H 07/22/23 12:37 94 117 H 143/101 H BP Pulse Ox 07/22/23 15:24 98 07/22/23 13:00 95 07/22/23 12:37 134/95 H Intake & Output: Intake & Output 07/19/23 07/20/23 07/21/23 07/22/23 23:59 23:59 23:59 23:59 Intake Total 5170.000 1580 1877 Output Total 400 1425 1090 Balance 4770.000 155 787 - Objective General Appearance: positive: No acute distress, Alert, Other (she is comfortable. no complaints) Eyes Bilateral: positive: PERRL, EOMI Respiratory: positive: No respiratory distress Neurologic/Psychiatric: positive: Oriented x3 - Lab Results Fish Bones: 07/20/23 02:57 07/20/23 02:57 Other Labs: Lab Results x24hrs 07/21/23 Range/Units 22:48 Urine Color YELLOW Urine Clarity CLOUDY (CLEAR) Urine pH 6.5 (5.0-7.5) PH Ur Specific [place] <=1.005 (1.002-1.030) Urine Protein NEGATIVE (NEGATIVE) mg/dL Urine Glucose (UA) NEGATIVE (NEGATIVE) mg/dL Urine Ketones NEGATIVE (NEGATIVE) mg/dL Urine Occult Blood NEGATIVE (NEGATIVE) Urine Nitrite POSITIVE H (NEGATIVE) Urine Bilirubin NEGATIVE (NEGATIVE) Urine Urobilinogen 1 (NORMAL) (NORMAL) E.U./dL Ur Leukocyte Esterase LARGE H (NEGATIVE) Urine RBC 0-5 (0-5) /HPF Urine WBC >25 H (0-5) /HPF Ur Squamous Epith Cells NONE SEEN (<= Few) Urine Bacteria Many H (None Seen) /HPF Ur Microscopic Review INDICATED Urine Culture Comments INDICATED Assessment/Plan - Problem List (1) Ribs, multiple fractures Impression: was resting comfortably. easily awakens to voice. she is oriented and comfortable. no anxiety, agitation, tremor. Qualifiers: Encounter type: initial encounter Fracture type: closed Laterality: right Qualified Code(s): S22.41XA - Multiple fractures of ribs, right side, initial encounter for closed fracture
--- NOTE | 2023-07-23 10:23 | PROVIDER PROGRESS NOTE ---
Subjective - Subjective Subjective: sleeping comfortably Objective - Vital Signs/Intake & Output Vital Signs: Vital Signs x48h Temp Pulse Resp BP Pulse Ox 07/23/23 05:00 36.8 C 78 20 159/98 H 100 Intake & Output: Intake & Output 07/20/23 07/21/23 07/22/23 07/23/23 23:59 23:59 23:59 23:59 Intake Total 5170.000 1580 1877 100 Output Total 400 1425 1090 100 Balance 4770.000 155 787 0 - Objective General Appearance: positive: No acute distress, Other (sleeping comfortably) Respiratory: positive: No respiratory distress - Lab Results Fish Bones: 07/20/23 02:57 07/20/23 02:57 Assessment/Plan - Problem List (1) Ribs, multiple fractures Impression: doing well with rib fractures. few hours of agitation yesterday morning. normal mood and affect yesterday afternoon and last pm. lives alone. unsteady gait and frequent falls. pt d/c planning Qualifiers: Encounter type: initial encounter Fracture type: closed Laterality: right Qualified Code(s): S22.41XA - Multiple fractures of ribs, right side, initial encounter for closed fracture
[2023-07-23] MEDS: LORazepam 1 MG TABLET PO SCH (11:24)
[2023-07-23] MEDS: ENOXAPARIN 30 MG/0.3 ML SYRINGE SUBQ SCH (11:57)
[2023-07-23] MEDS: oxyCODONE 5 MG TABLET PO PRN (18:59)
[2023-07-24 09:17] LABS: HCT - HEMATOCRIT 35.9 % (37.0-47.0); HGB - HEMOGLOBIN 11.5 g/dL (12.0-16.0); MEAN CORPUSCULAR HEMOGLOBIN 35.5 pg (27.0-31.0); MEAN CORPUSCULAR VOLUME 110.8 fL (81.0-99.0); MEAN PLATELET VOLUME 9.5 fL (7.9-10.8); RED BLOOD COUNT 3.24 10^6/uL (4.20-5.40); RED CELL DISTRIBUTION WIDTH 13.4 % (12.0-15.0); WHITE BLOOD COUNT 2.4 x10^3/uL (4.8-10.8)
--- NOTE | 2023-07-24 16:14 | Discharge Plan ---
Discharge Plan Problem Reviewed?: Yes Disposition: Home, Self Care Condition: Stable Prescriptions: oxyCODONE [Roxicodone] 5 mg PO Q6HR PRN #30 tablet PRN Reason: Abdominal Pain Ciprofloxacin [Cipro] 500 mg PO Q12H #10 tablet Diet: Regular Activity Restrictions: No Restrictions Shower Restrictions: No Driving Restrictions: Yes (no driving for a week) Health Concerns: call the surgery office with any concerns [phone] Assessment: doing well after fall with rib fractures and treatment bladder infection No Smoking: If you smoke, Please STOP! Call for help.
--- NOTE | 2023-07-24 16:19 | DISCHARGE SUMMARY ---
"Discharge Summary Admit Date: 07/20/23 Discharge Date: 07/24/23 Code Status: Attempt Resuscitation Condition at Discharge: Good Discharge Facility Name: [facility] - DIAGNOSES Admission Diagnoses: fall with rib fractures. later became apparent she had a uti at time of admission Discharge Diagnoses with Status of Each Condition: home in much improved condition. comfortable. no breathing problems. confusion resolved - HPI History of Present Illness: admitted after fall with rib fractures. she had mild confusion and foul urine w ith frequency. she was diagnosed with e coli uti. possible etoh withdrawal. treated for pain and uti with cipro. by 07/24/2023 she was much improved. - CONSULTS | PROCEDURES Procedures: pain control and tx uti - ALLERGIES Allergies/Adverse Reactions: Allergies Allergy/AdvReac Type Severity Reaction Status Date / Time pregabalin [From Lyrica] Allergy Hives Verified 07/19/23 23:28 adhesive tape AdvReac Rash Verified 07/19/23 23:28 Sulfa (Sulfonamide AdvReac Itching Verified 07/19/23 23:28 Antibiotics) - MEDICATIONS Home Medications: Ambulatory Orders Medication Instructions Recorded Confirmed busPIRone [Buspar] 15 mg PO BID 10/11/18 07/20/23 traZODone [Desyrel] 150 mg PO QPM 10/11/18 07/20/23 Meloxicam 15 mg PO DAILY 11/20/19 07/20/23 Alendronate [Fosamax] 70 mg PO FR 11/21/19 07/20/23 Metoprolol Succinate [Toprol Xl] 25 mg PO BID 11/21/19 07/20/23 Gabapentin [Neurontin] 800 mg PO TID 02/06/20 07/20/23 SUMAtriptan succinate [Sumatriptan 100 mg PO DAILY PRN 02/06/20 07/20/23 Succinate] Famotidine [Pepcid] 20 mg PO BID #60 tablet 09/10/21 07/20/23 Venlafaxine HCl 75 mg PO DAILY 30 Days #30 tablet 11/04/21 07/20/23 Ciprofloxacin [Cipro] 500 mg PO Q12H #10 tablet 07/24/23 oxyCODONE [Roxicodone] 5 mg PO Q6HR PRN #30 tablet 07/24/23 - PHYSICAL EXAM AT DISCHARGE General Appearance: positive: No acute distress, Alert Eyes Bilateral: positive: PERRL, EOMI ENT: positive: No signs of dehydration Neck: positive: No JVD, Trachea midline Respiratory: positive: No respiratory distress Abdomen: positive: Non-tender, No distention Neurologic/Psychiatric: positive: Oriented x3 - LABS Result Diagrams: 07/24/23 09:05 07/20/23 02:57 - FOLLOW UP Follow Up: follow up surgery as needed call to make an appointment as needed [phone]"
[2023-07-24 16:22] VITALS: BP 149/96; O2SAT 97
== END 2023-07-24 17:00 | disposition home or self-care (01) | DRG 948 ==
LOC: EDUNIT# → ED 23:23 → ICU 07-20 04:51 → MS2 07-22 07:57 → OBSVTOIN 07-22 12:30
PROVIDERS: ADMIT Surgery; ATTEND Surgery
DX: G89.11 Acute pain due to trauma (principal); S22.41XA Multiple fractures of ribs, right side, initial encounter for closed fracture; N39.0 Urinary tract infection, site not specified; F10.239 Alcohol dependence with withdrawal, unspecified; W01.0XXA Fall on same level from slipping, tripping and stumbling without subsequent striking against object, initial encounter; Y92.009 Unspecified place in unspecified non-institutional (private) residence as the place of occurrence of the external cause; B96.20 Unspecified Escherichia coli [E. coli] as the cause of diseases classified elsewhere; I10 Essential (primary) hypertension; E78.00 Pure hypercholesterolemia, unspecified; F32.A Depression, unspecified; F17.210 Nicotine dependence, cigarettes, uncomplicated; Z91.81 History of falling; Y90.8 Blood alcohol level of 240 mg/100 ml or more
CPT/HCPCS: 36415; 71100; 80053; 80320; 81001; 83690; 85025; 85027; 87086; 87150; 87181; 96372; 96374; 96376; 97162; 99284; 99285; A9270; G0378; J7120; J8499; Q0162; 81003

== ENCOUNTER 2023-08-09 21:35 | Outpatient (CLI) | payer MEDICAID | END 2023-08-09 23:59 | disposition critical access hospital (66) | LOC: EMS 21:35 | DX: R07.81 Pleurodynia (principal); F10.129 Alcohol abuse with intoxication, unspecified | CPT/HCPCS: A0425; A0429; A0999 ==

== ENCOUNTER 2023-08-09 21:41 | Emergency (ER) | payer MEDICAID ==
[2023-08-09] MEDS: ACETAMINOPHEN 500 MG TABLET PO STA (23:25)
[2023-08-09] MEDS: LIDOCAINE PATCH 5% TOP STA (23:25)
--- NOTE | 2023-08-09 23:32 | XRAY Report ---
PROCEDURE: Ribs w/PA Chest 3+V RT INDICATIONS: continued pain TECHNIQUE: 4 views of the ribs were acquired, along with a single view chest. COMPARISON: 07/20/2023 FINDINGS: Surgical changes and devices: None. Bones and chest wall: Again seen right lateral eighth and ninth rib fractures, right 10th rib fractu res not well seen. Old healed rib fractures are noted. No suspicious bony lesions. Overlying soft ti ssues appear unremarkable. Lungs and pleura: No pleural effusions or pneumothorax. Lungs appear clear. Mediastinum: Mediastinal contours appear normal. Heart size is normal. IMPRESSION: Again seen 8th and ninth rib fractures, 10th rib fracture is not well seen. No acute rib fractures. N o pneumothorax. Reviewed by: Butch Hidalgo MD on 08/09/2023 11:31 PM PST Approved by: Butch Hidalgo MD on 08/09/2023 11:31 PM PST Station ID: [id number]
--- NOTE | 2023-08-10 01:17 | ED Physician Documentation ---
History of Present Illness - Stated complaint Stated Complaint: PAIN S/P BROKEN RIBS 2 WEEKS AGO - Chief complaint Chief Complaint: General - History obtained from History obtained from: Patient - Additonal information Additional information: Patient is a 63-year-old female presenting for evaluation of right-sided rib pain. States that she has broken ribs. States that the pain this evening was worse and she felt like she could not catch her breath thus prompting her to call 911. She denies alcohol use to me. However she cannot state the month or the year and does not want to try to even gas. When asked about her recent admission she appears confused and states that she cannot recall being in the hospital recently and denies that she was prescribed any medications.She denies any recent falls. However on review of her record she was admitted from July 20 to for right rib fractures to the surgery service. She was discharged home with a prescription for oxycodone which she appears to have filled. 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 : None HEENT: None Psych: Depression Musculoskeletal: Chronic back pain Derm: None - Past Surgical History Past Surgical History: Yes Ortho: Spine surgery /LACQUER POLISHER: section - Present Medications Home Medications: Ambulatory Orders Medication Instructions Recorded Confirmed busPIRone [Buspar] 15 mg PO BID 10/11/18 07/20/23 traZODone [Desyrel] 150 mg PO QPM 10/11/18 07/20/23 Meloxicam 15 mg PO DAILY 11/20/19 07/20/23 Alendronate [Fosamax] 70 mg PO FR 11/21/19 07/20/23 Metoprolol Succinate [Toprol Xl] 25 mg PO BID 11/21/19 07/20/23 Gabapentin [Neurontin] 800 mg PO TID 02/06/20 07/20/23 SUMAtriptan succinate [Sumatriptan 100 mg PO DAILY PRN 02/06/20 07/20/23 Succinate] Famotidine [Pepcid] 20 mg PO BID #60 tablet 09/10/21 07/20/23 Venlafaxine HCl 75 mg PO DAILY 30 Days #30 tablet 11/04/21 07/20/23 Ciprofloxacin [Cipro] 500 mg PO Q12H #10 tablet 07/24/23 oxyCODONE [Roxicodone] 5 mg PO Q6HR PRN #30 tablet 07/24/23 Acetaminophen [Acetaminophen Extra 500 mg PO QID PRN #50 tablet 08/10/23 Strength] HYDROcod/ACETAM 5/325 [[place] 5/325] 1 ea PO Q8H PRN #15 tablet 08/10/23 Meloxicam [Mobic] 7.5 mg PO BID 10 Days #20 tablet 08/10/23 - Allergies Allergies/Adverse Reactions: Allergies Allergy/AdvReac Type Severity Reaction Status Date / Time pregabalin [From Lyrica] Allergy Hives Verified 08/09/23 21:56 adhesive tape AdvReac Rash Verified 08/09/23 21:56 Sulfa (Sulfonamide AdvReac Itching Verified 08/09/23 21:56 Antibiotics) - Social History Does the pt smoke?: No Smoking Status: Never smoker Does the pt drink ETOH?: Yes Does the pt have substance abuse?: No - Immunizations Immunizations are current?: Yes - POLST Patient has POLST: No POLST Status: Full Code PD ED PE NORMAL - General General: No acute distress, Well developed/nourished. No: Alert and oriented X 3 (Alert and oriented to person and place but not to month or year) - HEENT HEENT: Atraumatic, Moist mucous membranes, Pharynx benign - Neck Neck: Supple, no meningeal sign - Cardiac Cardiac: RRR, Strong equal pulses, Other (Right anterior chest wall tenderness, no bruising or crepitus) - Respiratory Respiratory: No respiratory distress, Clear bilaterally - Abdomen Abdomen: Normal bowel sounds, Soft, Non tender, Non distended - Derm Derm: Warm and dry - Extremities Extremities: No calf tenderness / cord - Neuro Neuro: No motor deficit, Normal speech. No: Alert and oriented X 3 (Alert and oriented x 2) Results - Vitals Vitals: Vital Signs - 24 hr 08/09/23 08/10/23 21:52 07:45 Temperature 36.8 C Heart Rate 76 88 Respiratory 16 18 Rate Blood Pressure 140/83 H 188/114 H O2 Saturation 100 98 Oxygen O2 Source Room air - Labs Labs: Laboratory Tests 08/09/23 23:29 Ethyl Alcohol 447.3 PD Medical Decision Making - ED course Complexity details: reviewed results, re-evaluated patient, d/w patient ED course: Pt is a 63-year-old female presenting for evaluation of right-sided rib pain. Had a recent admission for rib fractures. She is a poor historian and denies EtOH use But clinically I have a concern for alcohol intoxication. X-ray was obtained of the right ribs and chest. Prior rib fractures are seen but there is no pneumothorax. I did give the patient Tylenol and lidocaine patch. EtOH level was drawn as patient was quite a poor historian and noted to be significantly elevated At 447.No signs of injury on exam. Patient was reportedly emotional stating that her parents would be upset with her. At this time I think it would be appropriate to allow the patient to metabolize in the emergency department overnight. Will plan for discharge once she is clinically sober. 0658 - Patient is more awake. Able to sit up on her own. Does not exactly recall how she got here but suspects that she was the one that called 911 as she lives alone other than her cat. AOx3 now. She states that she wants to stop drinking and is wanting to try. I have offered her resources or speaking with social work this morning or detox and she does not want that at this time. Plan for discharge pending road test. Departure - Departure Disposition: 01 Home, Self Care Clinical Impression: Alcohol intoxication, Alcohol use disorder, Persistent wound pain Right rib fracture Qualifiers: Encounter type: subsequent encounter Rib fracture type: multiple ribs Fracture type: closed Fracture healing: with routine healing Qualified Code(s): S22.41XD - Multiple fractures of ribs, right side, subsequent encounter for fracture with routine healing Condition: Stable Instructions: ED Alcohol Intoxication, ED Fx Rib Prescriptions: Acetaminophen [Acetaminophen Extra Strength] 500 mg PO QID PRN #50 tablet PRN Reason: Pain Meloxicam [Mobic] 7.5 mg PO BID 10 Days #20 tablet HYDROcod/ACETAM 5/325 [[place] 5/325] 1 ea PO Q8H PRN #15 tablet PRN Reason: Pain Comments: The rib fractures on the right are healing. There is no signs of any complication such as a collapsed lung. Please continue with acetaminophen and lidocaine patches for pain control. You could add meloxicam anti-inflammatory twice daily for the next 7 to 10 days. We did provide a short-term prescription for you for some added pain medicine. The pain of the ribs should be decreasing much more in the short term as the bone healing and callus formation continue in the movement of the ribs decreases. I sent prescriptions for some medication to the [facility] pharmacy here in [place]. It should be open from 10-2 today. I would strongly encourage you to cut down on your alcohol use and reach out to your PCP or other local resources to help in doing so. I have listed info rmation for a local detox facility. [facility] [address] [place] [address] Main [facility] offers a monitored and safe setting for individuals withdrawing from alcohol and drugs, and counseling for individuals experiencing a mental health crisis. All services are provided in a 10-bed facility where intensive medical monitoring is required along with stabilization services. The goal of these services is to assess a clients mental health and substance use disorder related needs, and assist them in accessing the services they need to recover. Forms: PCP List Discharge Date/Time: 08/10/23 08:13
[2023-08-10] MEDS: NAPROXEN 250 MG TABLET PO STA (07:37)
[2023-08-10] MEDS: HYDROcod/ACETAM 5/325 MG TABLET PO STA (07:44)
[2023-08-10 07:52] VITALS: BP 188/114; O2SAT 98
--- NOTE | 2023-08-10 07:57 | ED Physician Documentation ---
ED Addendum - Addendum Addendum: 08/10/23 07:54 The patient was awake and conversant. She was more oriented to person place and time. She does not remember events of last night. She does not remember prescriptions for her rib injuries over the last few weeks. She states she has been using ibuprofen. We can add or change to a long-acting anti-inflammatory combined with Tylenol. She asked short-term for some other pain medicine. Certainly the issue would be given her alcoholism, the concern for addictive personality so the proper use of other medication. She states she is still feeling the clicking of her ribs with breathing and movement so has not formed a callus on the ribbons as yet. It could be reasonable short-term for prescriptions for medication. Will try to find out her preferred pharmacy. She was ambulatory to the bathroom. She likely is ready for discharge. She declined assistance for alcohol treatment. Disposition: The patient is discharged home in stable condition. Diagnoses: 1. Persistent pain status post rib fractures 2. Alcohol intoxication 3. Alcohol use disorder
== END 2023-08-10 08:13 | disposition home or self-care (01) ==
LOC: EDUNIT# → ED 21:41
DX: S22.41XA Multiple fractures of ribs, right side, initial encounter for closed fracture (principal); W19.XXXA Unspecified fall, initial encounter; F10.129 Alcohol abuse with intoxication, unspecified; Y90.8 Blood alcohol level of 240 mg/100 ml or more; I10 Essential (primary) hypertension
CPT/HCPCS: 36415; 71101; 82077; 99284; A9270

== ENCOUNTER 2023-09-11 02:27 | Outpatient (CLI) | payer MEDICAID | END 2023-09-11 23:59 | disposition critical access hospital (66) | LOC: EMS 02:27 | DX: R21 Rash and other nonspecific skin eruption (principal); L53.9 Erythematous condition, unspecified; L29.9 Pruritus, unspecified; I10 Essential (primary) hypertension | CPT/HCPCS: A0425; A0429; A0999 ==

== ENCOUNTER 2023-09-11 02:32 | Emergency (ER) | payer MEDICAID ==
[2023-09-11 02:50] VITALS: BP 125/86; O2SAT 100
[2023-09-11 03:39] LABS: RAPID STREP SCREEN Negative (Negative)
--- NOTE | 2023-09-11 04:04 | ED Physician Documentation ---
PD HPI URI - Stated complaint Stated Complaint: RASH - Chief complaint Chief Complaint: Wound - History obtained from History obtained from: Patient, EMS - History of Present Illness Timing - onset: How many days ago (4) Timing duration: Days (4) Timing details: Gradual onset, Still present Associated symptoms: Sore throat, Dry cough, Other (rash) Improves by: Nothing Worsened by: Other (temp) Similar symptoms before: Has not had sx before Recently seen: Admitted (one month ago for broken ribs with ETOH intoxication.) - Additional information Additional information: 63-year-old Angélica Cabezas developed a sore throat 4 days ago with mild congestion and minimal cough. She has developed a rash starting in her groin moving up the lateral sides of her abdomen up to underneath her breast and into her armpits. The rash is erythematous sandpaperlike consistent with scarlatina. Review of Systems Constitutional: reports: Fever Eyes: denies: Decreased vision Ears: denies: Ear pain Nose: reports: Congestion. denies: Rhinorrhea / runny nose Throat: reports: Sore throat Cardiac: denies: Chest pain / pressure, Palpitations Respiratory: reports: Cough. 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 : None HEENT: None Psych: Depression Musculoskeletal: Chronic back pain Derm: None - Past Surgical History Past Surgical History: Yes Ortho: Spine surgery /ACQUISITION EDITOR: section - Present Medications Home Medications: Ambulatory Orders Medication Instructions Recorded Confirmed busPIRone [Buspar] 15 mg PO BID 10/11/18 07/20/23 Meloxicam 15 mg PO DAILY 11/20/19 07/20/23 Alendronate [Fosamax] 70 mg PO FR 11/21/19 07/20/23 Metoprolol Succinate [Toprol Xl] 25 mg PO BID 11/21/19 07/20/23 Gabapentin [Neurontin] 800 mg PO TID 02/06/20 07/20/23 SUMAtriptan succinate [Sumatriptan 100 mg PO DAILY PRN 02/06/20 07/20/23 Succinate] Famotidine [Pepcid] 20 mg PO BID #60 tablet 09/10/21 07/20/23 Venlafaxine HCl 75 mg PO DAILY 30 Days #30 tablet 11/04/21 07/20/23 Ciprofloxacin [Cipro] 500 mg PO Q12H #10 tablet 07/24/23 oxyCODONE [Roxicodone] 5 mg PO Q6HR PRN #30 tablet 07/24/23 Acetaminophen [Acetaminophen Extra 500 mg PO QID PRN #50 tablet 08/10/23 Strength] HYDROcod/ACETAM 5/325 [[place] 5/325] 1 ea PO Q8H PRN #15 tablet 08/10/23 Meloxicam [Mobic] 7.5 mg PO BID 10 Days #20 tablet 08/10/23 Amoxicillin 875 mg PO BID #20 tablet 09/11/23 DULoxetine [Cymbalta] 60 mg PO DAILY 09/11/23 09/11/23 - Allergies Allergies/Adverse Reactions: Allergies Allergy/AdvReac Type Severity Reaction Status Date / Time pregabalin [From Lyrica] Allergy Hives Verified 09/11/23 02:46 adhesive tape AdvReac Rash Verified 09/11/23 02:46 Sulfa (Sulfonamide AdvReac Itching Verified 09/11/23 02:46 Antibiotics) - Social History Does the pt smoke?: No Smoking Status: Never smoker Does the pt drink ETOH?: Yes Does the pt have substance abuse?: No - Immunizations Immunizations are current?: Yes - POLST Patient has POLST: No POLST Status: Full Code PD ED PE NORMAL - Vitals Vital signs reviewed: Yes (normal ) - General General: Alert and oriented X 3, No acute distress, Well developed/nourished - HEENT HEENT: Atraumatic, PERRL, EOMI, Ears normal, Other (pharynx is erythematous with minimal exudate. 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, No motor deficit, No sensory deficit, Normal speech Eye Opening: Spontaneous Motor: Obeys Commands Verbal: Oriented GCS Score: 15 - Psych Psych: Normal mood, Normal affect Results - Vitals Vitals: Vital Signs - 24 hr 09/11/23 02:36 Temperature 36.9 C Heart Rate 92 Respiratory 16 Rate Blood Pressure 125/86 H O2 Saturation 100 Oxygen O2 Source Room air - Labs Labs: Laboratory Tests 09/11/23 02:38 Group A Strep Rapid Negative PD Medical Decision Making - ED course Complexity details: reviewed results, re-evaluated patient, considered differential, d/w patient ED course: 63-year-old female with acute pharyngitis and scarlatiniform rash has a negative rapid strep and we will still treat her for strep. She is administered 10 mg of dexamethasone and she is dispensed a prepack of amoxicillin 500 mg [address] her on 875 twice daily for 10 days. Departure - Departure Disposition: Home, Self Care Clinical Impression: Scarlatiniform rash Pharyngitis Qualifiers: Pharyngitis/tonsillitis etiology: streptococcus Qualified Code(s): J02.0 - Streptococcal pharyngitis Condition: Stable Instructions: ED Scarletina, ED Strep Pharyngitis Poss Follow-Up: [facility] [Provider Group] Prescriptions: Amoxicillin 875 mg PO BID #20 tablet Comments: Angélica today it looks like the rash you have is consistent with scarlatina and you have a sore throat. We have elected to treat you for strep. Your rapid strep in the emergency department was negative and a culture is pending. Our expectation with treatment is improvement in your rash over the next 5 days and improvement in your sore throat over the next 1 to 3 days. I have E scribed some amoxicillin to the community pharmacy here in [place]. Forms: PCP List Discharge Date/Time: 09/11/23 04:35
[2023-09-11] MEDS: DEXAMETHASONE 10 MG/ML VIAL PO STA (04:19)
[2023-09-11] MEDS: CHERRY SYRUP 10 ML UDC PO ONE (04:19)
[2023-09-11] MEDS: AMOXICILLIN 250 MG Prepack 6 PO STA (04:24)
[2023-09-11] MEDS ORDERED: AMOXICILLIN 250 MG Prepack 6 PO SCH (06:00)
== END 2023-09-11 04:35 | disposition home or self-care (01) ==
LOC: EDUNIT# → ED 02:32
DX: A38.9 Scarlet fever, uncomplicated (principal); J02.0 Streptococcal pharyngitis; I10 Essential (primary) hypertension; E78.00 Pure hypercholesterolemia, unspecified; Z79.899 Other long term (current) drug therapy
CPT/HCPCS: 87070; 87430; 99283; A9270

== ENCOUNTER 2024-01-21 02:44 | Outpatient (CLI) | payer MEDICAID | END 2024-01-21 23:19 | disposition critical access hospital (66) | LOC: EMS 02:44 | DX: F10.129 Alcohol abuse with intoxication, unspecified (principal) | CPT/HCPCS: A0425; A0429; A0999 ==

== ENCOUNTER 2024-01-21 02:48 | Emergency (ER) | payer MEDICAID ==
[2024-01-21 03:12] VITALS: BP 136/114; O2SAT 100
== END 2024-01-21 03:27 | disposition left against medical advice (07) ==
LOC: EDUNIT# → ED 02:48
DX: Z53.21 Procedure and treatment not carried out due to patient leaving prior to being seen by health care provider (principal)